=== PATIENT | female | born 1935 | race Caucasian/White ===

== ENCOUNTER 2016-05-14 14:34 | Inpatient (IN) | payer MEDICARE, MEDICAID ==
[2016-05-14 14:35] VITALS: BMI 18.1
--- NOTE | 2016-05-14 15:28 | C.PDOC ---
History Of Present Illness The patient, an 80 y/o female whose PMHx includes two episodes of [place] and CHF, presents to the ED for evaluation of a generalized headache, generalized body aches and fever which was noted today. As per daughter, patient was evaluated by her PMD, Dr. Beck, and was found to have elevated levels of RBCs and decreased levels of WBCs. Patient was admitted to the hospital afterwards but daughter claims that patient was discharged without received antibiotics. Today , patient had a fever of 101 (oral temp) which prompted ED visit for further evaluation. Patient reports shortness of breath but denies cough, nausea, vomiting. Time Seen by Provider: 05/14/16 14:52 Chief Complaint (Nursing): Headache History Per: Patient, Family (daughter ) History/Exam Limitations: no limitations Current Symptoms Are (Timing): Still Present Quality: "Pain" Associated Symptoms: denies: Nausea, Vomiting Additional History Per: Patient Past Medical History Reviewed: Historical Data, Nursing Documentation, Vital Signs Vital Signs: Last Vital Signs Temp 97.4 F L 05/14/16 14:46 Pulse 67 05/14/16 14:46 Resp 18 05/14/16 14:46 BP 95/57 L 05/14/16 14:46 Pulse Ox 99 05/14/16 15:49 - Medical History PMH: Anxiety, Arthritis (L KNEE FUSION), Asthma, Atrial Fibrillation, CHF, COPD , Dementia, Diabetes, Gall Bladder Disease, HTN, Osteoporosis, Pneumonia (2015), Rheumatoid Arthritis Denies: Alzheimer's Disease, Anemia, Bipolar Disorder, Bronchitis, Cardia Arrhythmia, Crohn's Disease, Depression, Diverticulitis, Emphysema, Fractures, Gastritis, HIV, Hypercholesterolemia, Hyperthyroidism, Hypothyroidism, Kidney Stones, Migraine, Mitral Valve Prolapse, Multiple Sclerosis, Pancreatitis, Paranoia, Parkinson's Disease, Peripheral Edema, Post Traumatic Stress Disorder , Pulmonary Embolism, Chronic Kidney Disease, Schizophrenia, Seizures, Sickle Cell Disease, Sexually Transmitted Disease, Sleep Apnea, TIA Surgical History: Cholecystectomy, Coronary Stent (proximal RCA stent, 2 weeks ago) Denies: Appendectomy, CABG, Carotid Endarterectomy, Pacemaker, Tonsillectomy - [facility] Procedures ASSISTANCE WITH RESPIRATORY VENTILATION, <24 HRS, CPAP (01/17/16) ASSISTANCE WITH RESPIRATORY VENTILATION, >96 HRS, CPAP (02/28/16) CONTINUOUS INVASIVE MECHANICAL VENTILATION <96 CONSEC HRS (08/07/12) DILATION OF 1 COR ART WITH DRUG-ELUT INTRA, PERC APPROACH (12/29/15) INJECT/INFUSE NEC (02/11/14) LAPAROSCOPIC CHOLECYSTECTOMY (08/07/12) NEBULIZER THERAPY (09/10/13) OXYGEN ENRICHMENT NEC (08/07/12) VITAL CAPACITY DETERMIN (08/07/12) Family History: States: Unknown Family Hx - Social History Hx Tobacco Use: No Hx Alcohol Use: No Hx Substance Use: No - Immunization History Hx Tetanus Toxoid Vaccination: No Hx Influenza Vaccination: No Hx Pneumococcal Vaccination: No Review Of Systems Constitutional: Positive for: Fever Respiratory: Positive for: Shortness of Breath. Negative for: Cough Gastrointestinal: Negative for: Nausea, Vomiting Musculoskeletal: Positive for: Other (generalized body pain ) Physical Exam - Physical Exam Appears: Non-toxic, No Acute Distress Skin: Normal Color, Warm, Dry Head: Atraumatic, Normacephalic Eye(s): bilateral: Normal Inspection, EOMI Oral Mucosa: Moist Neck: Supple Chest: Symmetrical, No Deformity, No Tenderness Cardiovascular: Rhythm Regular, No Murmur Respiratory: Normal Breath Sounds, No Rales, No Rhonchi, No Wheezing Gastrointestinal/Abdominal: Tenderness (slight, diffuse ), Distention (slight), No Guarding, No Rebound Back: Normal Inspection, No Vertebral Tenderness, No Paraspinal Tenderness Extremity: Normal ROM, No Tenderness, Capillary Refill (less than 2 seconds), Deformity (+left knee with surgical scars ), No Swelling Pulses: Left Dorsalis Pedis: Normal, Right Dorsalis Pedis: Normal Neurological/Psych: Oriented x3, Normal Speech, Normal Cognition Gait: Unable To Assess ED Course And Treatment O2 Sat by Pulse Oximetry: 99 (on RA) Pulse Ox Interpretation: Normal Medical Decision Making Medical Decision Making: Impression: 80 y/o female with generalized body aches, headaches, fever Plan: * labs * EKG * CXR * reassess and disposition Progress Notes: spoke with Dr. Beck, patient failing at home, decrease PO, decreased ambulation, may need placement in a custodial. Disposition Discussed With : Gisselle Beck Doctor Will See Patient In The: Hospital - Disposition Disposition: HOSPITALIZED Disposition Time: 15:37 Condition: GUARDED - Clinical Impression Clinical Impression: Head ache, Shortness of breath, Chronic pain, Anxiety, Failure to thrive - Scribe Statement The provider has reviewed the documentation as recorded by the Scribe (Lakeshia Loza) Provider Attestation: All medical record entries made by the Scribe were at my direction and personally dictated by me. I have reviewed the chart and agree that the record accurately reflects my personal performance of the history, physical exam, medical decision making, and the department course for this patient. I have also personally directed, reviewed, and agree with the discharge instructions and disposition. Decision To Admit - Pt Status Changed To: Hospital Disposition Of: Inpatient - Admit Certification Admit to Inpatient:: After my assessment, the patient will require hospitalization for at least two midnights. This is because of the severity of symptoms shown, intensity of services needed, and/or the medical risk in this patient being treated as an outpatient. - InPatient: Physician Admission Certification: I certify that this patient requires 2 or more midnights of care for the following reason:: patient unable to ambulate, decreased PO, chronic pain, may need placement - . Bed Request Type: Regular Patient Diagnosis: Head ache, Shortness of breath, Chronic pain, Anxiety, Failure to thrive
[2016-05-14 16:22] LABS: BASO # 0.1 K/uL (0.0-0.2); BASO % 1.4 % (0.0-2.0); EOS # 0.1 K/uL (0.0-0.7); EOS % 1.4 % (0.0-4.0); HEMATOCRIT 30.7 % (34.0-47.0); LYMPH # 1.9 K/uL (1.0-4.3); LYMPH % 21.4 % (20.0-40.0); MEAN CELL VOLUME 74.6 fL (81.0-99.0); MEAN CORPUSCULAR HEMOGLOBIN 24.8 pg (27.0-31.0); MEAN CORPUSCULAR HGB CONC 33.3 g/dL (33.0-37.0); MEAN PLATELET VOLUME 9.7 fL (7.2-11.7); MONO % 11.2 % (0.0-10.0); NRBC % 0.1 % (0.0-2.0); RED CELL DISTRIBUTION WIDTH 16.2 % (11.5-14.5); WHITE BLOOD COUNT 8.9 K/uL (4.8-10.8)
--- NOTE | 2016-05-14 16:24 | RAD ---
PROCEDURE: CHEST RADIOGRAPH, 1 VIEW HISTORY: SOB COMPARISON: Comparison made with chest radiograph 05/09/2016 FINDINGS: LUNGS: Mild pulmonary vascular congestive changes slightly improved from prior exam. PLEURA: No pneumothorax or pleural fluid seen. CARDIOVASCULAR: Cardiomegaly. OSSEOUS STRUCTURES: No significant abnormalities. VISUALIZED UPPER ABDOMEN: Normal. OTHER FINDINGS: None. IMPRESSION: Mild central pulmonary vascular congestion slightly improved from prior study. .
[2016-05-14 16:27] LABS: RBC URINE 2 /hpf (0-3); URINE BILIRUBIN NEGATIVE (NEGATIVE); URINE BLOOD NEGATIVE (NEGATIVE); URINE COLOR Yellow (YELLOW); URINE GLUCOSE (UA) NORMAL (Normal); URINE KETONE NEGATIVE (NEGATIVE); URINE LEUKOCYTE ESTERASE NEG Leu/uL (Negative); URINE PROTEIN NEGATIVE (NEGATIVE); URINE UROBILINOGEN NORMAL mg/dL (0.2-1.0); WBC URINE 1 /hpf (0-5)
[2016-05-14 16:30] LABS: CHLORIDE 96 mmol/L (98-107); SODIUM 140 mmol/L (132-148)
[2016-05-14 16:32] LABS: GFR AFRICAN-AMERICAN > 60
[2016-05-14 16:33] LABS: ALB/GLOB RATIO 1.2 (1.0-2.1); ALKALINE PHOSPHATASE 57 U/L (38-126); ALT/SGPT 22 U/L (9-52); AST/SGOT 21 U/L (14-36); BILIRUBIN,TOTAL 0.8 mg/dL (0.2-1.3); BLOOD UREA NITROGEN 30 mg/dL (7-17); CALCIUM 8.9 mg/dl (8.6-10.4); CARBON DIOXIDE 28 mmol/L (22-30); GLUCOSE,RANDOM 92 mg/dL (65-105); TOTAL PROTEIN 8.2 g/dL (6.3-8.3)
[2016-05-14] MEDS: Oxycodone/Acetaminophen 5/325 mg Tab PO PRN (20:49)
[2016-05-15] MEDS: Oxycodone/Acetaminophen 5/325 mg Tab PO PRN ×2 (09:25→16:14)
[2016-05-15] MEDS: Ranolazine 500 mg Extended Release Tablets PO SCH ×2 (09:28→17:14)
[2016-05-15] MEDS: Pantoprazole 40 mg EC Tab PO SCH (09:29)
--- NOTE | 2016-05-15 17:31 | CP.PCM.CON ---
History of Present Illness - History of Present Illness History of Present Illness: Reason for Consulation Dyspnea, weakness, Hx of CAD-NC/Stent, Ischemic Cardiomyopathy History Of Present Illness The patient, an 80 y/o female whose PMHx includes two episodes of [place] and CHF, presents to the ED for evaluation of a generalized headache, generalized body aches and fever which was noted today. As per daughter, patient was evaluated by her PMD, Dr. Beck, and was found to have elevated levels of RBCs and decreased levels of WBCs. Patient was admitted to the hospital afterwards but daughter claims that patient was discharged without received antibiotics. Today , patient had a fever of 101 (oral temp) which prompted ED visit for further evaluation. Patient reports shortness of breath but denies cough, nausea, vomiting. Patient poor Historian. Most of the history obtained from the chart Chief Complaint (Nursing): Headache History Per: Patient, Family (daughter ) History/Exam Limitations: no limitations Current Symptoms Are (Timing): Still Present Quality: "Pain" Associated Symptoms: denies: Nausea, Vomiting Additional History Per: Patient Past Medical History Reviewed: Historical Data, Nursing Documentation, Vital Signs Vital Signs: Last Vital Signs Temp 97.4 F L 05/14/16 14:46 Pulse 67 05/14/16 14:46 Resp 18 05/14/16 14:46 BP 95/57 L 05/14/16 14:46 Pulse Ox 99 05/14/16 15:49 - Medical History PMH: Anxiety, Arthritis (L KNEE FUSION), Asthma, Atrial Fibrillation, CHF, COPD , Dementia, Diabetes, Gall Bladder Disease, HTN, Osteoporosis, Pneumonia (2015), Rheumatoid Arthritis Denies: Alzheimer's Disease, Anemia, Bipolar Disorder, Bronchitis, Cardia Arrhythmia, Crohn's Disease, Depression, Diverticulitis, Emphysema, Fractures, Gastritis, HIV, Hypercholesterolemia, Hyperthyroidism, Hypothyroidism, Kidney Stones, Migraine, Mitral Valve Prolapse, Multiple Sclerosis, Pancreatitis, Paranoia, Parkinson's Disease, Peripheral Edema, Post Traumatic Stress Disorder , Pulmonary Embolism, Chronic Kidney Disease, Schizophrenia, Seizures, Sickle Cell Disease, Sexually Transmitted Disease, Sleep Apnea, TIA Surgical History: Cholecystectomy, Coronary Stent (proximal RCA stent 12/2015) Denies: Appendectomy, CABG, Carotid Endarterectomy, Pacemaker, Tonsillectomy - [facility] Procedures ASSISTANCE WITH RESPIRATORY VENTILATION, <24 HRS, CPAP (01/17/16) ASSISTANCE WITH RESPIRATORY VENTILATION, >96 HRS, CPAP (02/28/16) CONTINUOUS INVASIVE MECHANICAL VENTILATION <96 CONSEC HRS (08/07/12) DILATION OF 1 COR ART WITH DRUG-ELUT INTRA, PERC APPROACH (12/29/15) INJECT/INFUSE NEC (02/11/14) LAPAROSCOPIC CHOLECYSTECTOMY (08/07/12) NEBULIZER THERAPY (09/10/13) OXYGEN ENRICHMENT NEC (08/07/12) VITAL CAPACITY DETERMIN (08/07/12) Family History: States: Unknown Family Hx - Social History Hx Tobacco Use: No Hx Alcohol Use: No Hx Substance Use: No - Immunization History Hx Tetanus Toxoid Vaccination: No Hx Influenza Vaccination: No Hx Pneumococcal Vaccination: No Review Of Systems Constitutional: Positive for: Fever Respiratory: Positive for: Shortness of Breath. Negative for: Cough Gastrointestinal: Negative for: Nausea, Vomiting Musculoskeletal: Positive for: Other (generalized body pain ) Physical Exam - Physical Exam Appears: Non-toxic, No Acute Distress Skin: Normal Color, Warm, Dry Head: Atraumatic, Normacephalic Eye(s): bilateral: Normal Inspection, EOMI Oral Mucosa: Moist Neck: Supple Chest: Symmetrical, No Deformity, No Tenderness Cardiovascular: Rhythm Regular, No Murmur Respiratory: Normal Breath Sounds, No Rales, No Rhonchi, No Wheezing Gastrointestinal/Abdominal: Tenderness (slight, diffuse ), Distention (slight), No Guarding, No Rebound Back: Normal Inspection, No Vertebral Tenderness, No Paraspinal Tenderness Extremity: Normal ROM, No Tenderness, Capillary Refill (less than 2 seconds), Deformity (+left knee with surgical scars ), No Swelling Pulses: Left Dorsalis Pedis: Normal, Right Dorsalis Pedis: Normal Neurological/Psych: Oriented x3, Normal Speech, Normal Cognition Gait: Unable To Assess Past Patient History - Infectious Disease Hx of Infectious Diseases: None - Tetanus Immunizations Tetanus Immunization: Unknown - Past Medical History & Family History Past Medical History?: Yes - Past Social History Smoking Status: Light Smoker < 10 Cigarettes Daily - CARDIAC Hx Atrial Fibrillation: Yes Hx Cardia Arrhythmia: No Hx Congestive Heart Failure: Yes Hx Heart Attack: Yes (x2) Hx Hypercholesterolemia: No Hx Hypertension: Yes Hx Mitral Valve Prolapse: No Hx Pacemaker: No Hx Peripheral Edema: No - PULMONARY Hx Asthma: Yes Hx Bronchitis: No Hx Chronic Obstructive Pulmonary Disease (COPD): Yes Hx Emphysema: No Hx Pneumonia: Yes (08/2015) Hx Pulmonary Embolism: No Hx Sleep Apnea: No - NEUROLOGICAL Hx Alzheimer's Disease: No Hx Dementia: Yes Hx Migraine: No Hx Multiple Sclerosis: No Hx Parkinson's Disease: No Hx Seizures: No Hx Transient Ischemic Attacks (TIA): No - HEENT Hx HEENT Problems: No - RENAL Hx Chronic Kidney Disease: No Hx Kidney Stones: No - ENDOCRINE/METABOLIC Hx Hyperthyroidism: No Hx Hypothyroidism: No - HEMATOLOGICAL/ONCOLOGICAL Hx Anemia: No Hx Human Immunodeficiency Virus (HIV): No Hx Sickle Cell Disease: No - INTEGUMENTARY Hx Dermatological Problems: No - MUSCULOSKELETAL/RHEUMATOLOGICAL Hx Arthritis: Yes (L KNEE FUSION) Hx Falls: Yes (8 months ago) Hx Fractures: No Hx Osteoporosis: Yes Hx Rheumatoid Arthritis: Yes - GASTROINTESTINAL Hx Crohn's Disease: No Hx Diverticulitis: No Hx Gall Bladder Disease: Yes Hx Gastritis: No Hx Pancreatitis: No - GENITOURINARY/GYNECOLOGICAL Hx Sexually Transmitted Disorders: No - PSYCHIATRIC Hx Anxiety: Yes Hx Bipolar Disorder: No Hx Depression: No Hx Paranoia: No Hx Post Traumatic Stress Disorder: No Hx Schizophrenia: No Hx Substance Use: No - SURGICAL HISTORY Hx Appendectomy: No Hx Carotid Endarterectomy: No Hx Cholecystectomy: Yes Hx Coronary Artery Bypass Graft: No Hx Coronary Stent: Yes (proximal RCA stent, 2 weeks ago) Hx Tonsillectomy: No - ANESTHESIA Hx Anesthesia: Yes Hx Anesthesia Reactions: No Hx Malignant Hyperthermia: No Meds Allergies/Adverse Reactions: Allergies Allergy/AdvReac Type Severity Reaction Status Date / Time moxifloxacin HCl Allergy Severe ANAPHYLAXIS Verified 05/14/16 14:51 [From Avelox] - Medications Medications: Current Medications Alprazolam (Xanax) 1 mg PO Q12 [facility] Last Admin: 05/15/16 10:00 Dose: Not Given Aspirin (Ecotrin) 81 mg PO DAILY [facility] Last Admin: 05/15/16 09:29 Dose: 81 mg Carvedilol (Coreg) 6.25 mg PO BID [facility] Last Admin: 05/15/16 17:14 Dose: 6.25 mg Escitalopram Oxalate (Lexapro) 5 mg PO DAILY [facility] Last Admin: 05/15/16 09:28 Dose: 5 mg Furosemide (Lasix) 20 mg PO DAILY [facility] Last Admin: 05/15/16 09:28 Dose: 20 mg Influenza Virus Vaccine (Afluria) 45 mcg IM .ONCE ONE Stop: 05/16/16 10:01 Losartan Potassium (Cozaar) 25 mg PO DAILY [facility] Last Admin: 05/15/16 09:29 Dose: 25 mg Megestrol Acetate (Megace) 40 mg PO DAILY [facility] Last Admin: 05/15/16 09:29 Dose: 40 mg Montelukast Sodium (Singulair) 10 mg PO HS [facility] Last Admin: 05/14/16 22:45 Dose: 10 mg Oxycodone/Acetaminophen (Percocet 5/325 Mg Tab) 1 tab PO Q4H PRN PRN Reason: Pain, moderate (4-7) Stop: 05/17/16 20:17 Last Admin: 05/15/16 16:14 Dose: 1 tab Pantoprazole Sodium (Protonix Ec Tab) 40 mg PO DAILY [facility] Last Admin: 05/15/16 09:29 Dose: 40 mg Ranolazine (Ranexa) 500 mg PO BID [facility] Last Admin: 05/15/16 17:14 Dose: 500 mg Rosuvastatin Calcium (Crestor) 10 mg PO [facility] Last Admin: 05/14/16 22:44 Dose: 10 mg Ticagrelor (Brilinta) 90 mg PO BID [facility] Last Admin: 05/15/16 17:14 Dose: 90 mg Results - Vital Signs Recent Vital Signs: Last Vital Signs Temp 97.8 F 05/15/16 15:30 Pulse 69 05/15/16 15:30 Resp 20 05/15/16 15:30 BP 128/87 05/15/16 15:30 Pulse Ox 98 05/15/16 15:30 - Labs Result Diagrams: 05/14/16 16:19 05/14/16 16:19 Assessment & Plan - Assessment and Plan (Free Text) Assessment: 80 F with hx of Ischemic CMP, CAD-NC s/p RCA stent presents for headache, abdominal pain and dyspnea 1. Acute on Chronic systolic CHF (Elevated Pro BNP). Will Check repeat ECHO. Continue ARBs, B blockers Good candidate for Entresto. Lasix PRN If repeat ECHO shows low EF (<35%) will benefit from ICD 2. CAD s/p RCA stent. Still has significant LAD disease (90%) calcific. Likely benefit from PCI, if patient symptomatic either dyspnea or chest pain Continue ASA. Due to dyspnea will switch Brilinta to Plavix Obviously I will discuss my thoughts with the daughter and PMD 3. Other mgt as per Dr. Beck
[2016-05-15] MEDS: Enoxaparin 30 mg Syringe SC SCH (17:54)
--- NOTE | 2016-05-15 22:18 | CARD ---
APPROVED REPORT EKG Measurement Heart [id number] <Conclusion> Sinus rhythm with marked sinus arrhythmia with premature atrial and ventricular complexes or fusion complexes Left axis deviation Moderate voltage criteria for LVH, may be normal variant Cannot rule out Septal infarct, age undetermined Possible Lateral infarct, age undetermined Inferior infarct, age undetermined Abnormal ECG
--- NOTE | 2016-05-16 07:53 | HP ---
An 80-year-old female admitted to the hospital with chief complaint of weakness, fatigue, tiredness, shortness of breath. The patient came to the ER, advised admission. PAST MEDICAL HISTORY: Congestive heart failure, coronary artery disease, status post MO, anxiety, ba ck pain. PHYSICAL EXAMINATION: GENERAL: The patient is awake, alert, oriented. VITAL SIGNS: Temperature 98, pulse is 90. HEENT: Within normal limits. NECK: Supple. CHEST: Symmetrical. HEART: Regular. ABDOMEN: Soft. EXTREMITIES: No edema. The patient suffers from failure to thrive, chronic heart failure. The patient will get bedrest, sup portive care. Continue treatment and cardiology evaluation, social service evaluation. Gisselle Vogel MD cc: [id number] TT: 05/15/2016 12:09:52 en
[2016-05-16] MEDS ORDERED: Influenza Virus Vaccine 45 mcg/0.5 ml Syr IM ONE (10:00)
[2016-05-16] MEDS ORDERED: Pneumococcal 23-Valent Vaccine IM ONE (10:00)
--- NOTE | 2016-05-16 10:11 | CP.PCM.PN ---
Subjective - Date & Time of Evaluation Date of Evaluation: 05/16/16 Time of Evaluation: 07:50 - Subjective Subjective: PGY2 Medicine Note - Dr. Beck's service: Patient seen and evaluated at bedside this AM. Patient says she feel dizzy. Patient denies chest pain, SOB, nausea, vomiting, diarrhea, constipation. Objective - Vital Signs/Intake and Output Vital Signs (last 24 hours): Temp Pulse Resp BP Pulse Ox 97.8 F 64 20 121/73 100 05/16/16 08:00 05/16/16 08:00 05/16/16 08:00 05/16/16 08:00 05/16/16 08:00 Intake and Output: 05/16/16 05/16/16 06:59 18:59 Intake Total 520 Balance 520 - Medications Medications: Current Medications Alprazolam (Xanax) 1 mg PO Q12 [facility] Last Admin: 05/15/16 21:30 Dose: 1 mg Aspirin (Ecotrin) 81 mg PO DAILY [facility] Last Admin: 05/15/16 09:29 Dose: 81 mg Carvedilol (Coreg) 6.25 mg PO BID [facility] Last Admin: 05/15/16 17:14 Dose: 6.25 mg Enoxaparin Sodium (Lovenox) 30 mg SC DAILY [facility] Last Admin: 05/15/16 17:54 Dose: 30 mg Escitalopram Oxalate (Lexapro) 5 mg PO DAILY [facility] Last Admin: 05/15/16 09:28 Dose: 5 mg Furosemide (Lasix) 20 mg PO DAILY [facility] Last Admin: 05/15/16 09:28 Dose: 20 mg Lactulose (Enulose) 20 gm PO DAILY [facility] Last Admin: 05/15/16 17:54 Dose: 20 gm Losartan Potassium (Cozaar) 25 mg PO DAILY [facility] Last Admin: 05/15/16 09:29 Dose: 25 mg Megestrol Acetate (Megace) 40 mg PO DAILY [facility] Last Admin: 05/15/16 09:29 Dose: 40 mg Montelukast Sodium (Singulair) 10 mg PO HS [facility] Last Admin: 05/15/16 21:29 Dose: 10 mg Oxycodone/Acetaminophen (Percocet 5/325 Mg Tab) 1 tab PO Q4H PRN PRN Reason: Pain, moderate (4-7) Stop: 03/21/17 20:17 Last Admin: 05/15/16 16:14 Dose: 1 tab Pantoprazole Sodium (Protonix Ec Tab) 40 mg PO DAILY [facility] Last Admin: 05/15/16 09:29 Dose: 40 mg Ranolazine (Ranexa) 500 mg PO BID [facility] Last Admin: 05/15/16 17:14 Dose: 500 mg Rosuvastatin Calcium (Crestor) 10 mg PO HS [facility] Last Admin: 05/15/16 21:27 Dose: 10 mg Ticagrelor (Brilinta) 90 mg PO BID [facility] Last Admin: 05/15/16 17:14 Dose: 90 mg - Labs Labs: 05/14/16 16:19 05/14/16 16:19 - Constitutional Appears: Non-toxic, No Acute Distress - Head Exam Head Exam: NORMAL INSPECTION - Eye Exam Eye Exam: EOMI - ENT Exam ENT Exam: Mucous Membranes Moist - Respiratory Exam Respiratory Exam: Clear to Ausculation Bilateral, Rales (bibasilar), NORMAL BREATHING PATTERN. absent: Rhonchi, Wheezes - Cardiovascular Exam Cardiovascular Exam: REGULAR RHYTHM, +S1, +S2. absent: Gallop, Rubs, Murmur - GI/Abdominal Exam GI & Abdominal Exam: Soft, Normal Bowel Sounds. absent: Distended, Firm ( deformed left knee), Tenderness - Extremities Exam Extremities Exam: Normal Capillary Refill - Neurological Exam Neurological Exam: Alert, Awake - Psychiatric Exam Psychiatric exam: Normal Affect, Normal Mood - Skin Skin Exam: Dry, Normal Color Assessment and Plan - Assessment and Plan (Free Text) Assessment: 1. CHF BNP 2200 CXR - mild central pulmonary vascular congestion slightly improved from prior study F/U ECHO Dr. Kelley - cardio consult - help appreciated ASA 81mg PO daily Coreg 6.25mg PO BID Lasix 20mg PO daily Cozaar 25mg PO daily 2. Abnormal EKG EKG - sinus rhythm at 71bpm with marked sinus arrhythmia with premature atrial and ventricular complexes. LAD. LVH. cannot rule out septal infarct, age undetermined. Possible lateral infarct, age undetermined. Inferior infarct, age undetermined. 3. Failure to thrive NS @ 50cc/hr Trying to contact family about fci. Case Management referral 4. Fever at home before admission Afebrile through entire hospital stay 5. History of CAD ASA 81mg PO daily Crestor 10mg PO HS Brilinta 90mg PO BID 6. Anxiety Xanax 1mg PO Q12H [facility] Lexapro 5mg PO daily 7. Prophylaxis Lovenox 30mg SC daily Protonix 40mg PO daily PT says patient is unable to participate in rehab
[2016-05-16] MEDS: Enoxaparin 30 mg Syringe SC SCH (10:55)
[2016-05-16] MEDS: Sodium Chloride 0.9% 1,000 ML IV SCH (10:55)
[2016-05-16] MEDS: Pantoprazole 40 mg EC Tab PO SCH (10:56)
[2016-05-16] MEDS: Ranolazine 500 mg Extended Release Tablets PO SCH ×2 (10:58→17:29)
[2016-05-16 11:49] LABS: BASO # 0.1 K/uL (0.0-0.2); EOS # 0.2 K/uL (0.0-0.7); HEMATOCRIT 30.5 % (34.0-47.0); LYMPH # 2.5 K/uL (1.0-4.3); LYMPH % 26.5 % (20.0-40.0); MEAN CELL VOLUME 74.9 fL (81.0-99.0); MEAN CORPUSCULAR HEMOGLOBIN 24.1 pg (27.0-31.0); MEAN CORPUSCULAR HGB CONC 32.2 g/dL (33.0-37.0); MONO # 1.2 K/uL (0.0-0.8); MONO % 12.3 % (0.0-10.0); RED CELL DISTRIBUTION WIDTH 15.9 % (11.5-14.5); WHITE BLOOD COUNT 9.5 K/uL (4.8-10.8)
[2016-05-16 12:18] LABS: CHLORIDE 94 mmol/L (98-107); POTASSIUM 4.2 mmol/L (3.6-5.2); SODIUM 138 mmol/L (132-148)
[2016-05-16 12:20] LABS: GFR AFRICAN-AMERICAN > 60
[2016-05-16 12:21] LABS: ALB/GLOB RATIO 1.3 (1.0-2.1); ALKALINE PHOSPHATASE 55 U/L (38-126); ALT/SGPT 10 U/L (9-52); AST/SGOT 18 U/L (14-36); BILIRUBIN,TOTAL 0.7 mg/dL (0.2-1.3); BLOOD UREA NITROGEN 25 mg/dL (7-17); CARBON DIOXIDE 27 mmol/L (22-30); GLUCOSE,RANDOM 73 mg/dL (65-105); TOTAL PROTEIN 7.5 g/dL (6.3-8.3)
[2016-05-16 12:22] LABS: CALCIUM 8.7 mg/dl (8.6-10.4)
[2016-05-16] MEDS: Oxycodone/Acetaminophen 5/325 mg Tab PO PRN (17:36)
--- NOTE | 2016-05-16 22:24 | CP.PCM.PN ---
Subjective - Date & Time of Evaluation Date of Evaluation: 05/16/16 Time of Evaluation: 14:00 - Subjective Subjective: Patient seen and evaluated Denies chest pain and dyspnea ECHO reviewed: EF 55%, Severe MR (Can consider Uyen Clip in the future, if recurrent CHF episodes despite max medical therapy), Moderate to severe TR, Moderate pulmonary HTN Dyspnea secondary to MR and diastolic CHF Hx of CAD s/p RCA stent. LAD not intervened yet Awaiting to d/w family invasive vs. Medical therapy Continue medical mgt for now for CHF and MR Objective - Vital Signs/Intake and Output Vital Signs (last 24 hours): Temp Pulse Resp BP Pulse Ox 97.8 F 64 19 91/52 L 98 05/16/16 15:00 05/16/16 15:00 05/16/16 15:00 05/16/16 15:00 05/16/16 15:00 Intake and Output: 05/16/16 05/17/16 18:59 06:59 Intake Total 300 Balance 300 - Medications Medications: Current Medications Alprazolam (Xanax) 1 mg PO Q12 [facility] Last Admin: 05/16/16 21:52 Dose: 1 mg Aspirin (Ecotrin) 81 mg PO DAILY [facility] Last Admin: 05/16/16 10:56 Dose: 81 mg Carvedilol (Coreg) 6.25 mg PO BID [facility] Last Admin: 05/16/16 17:25 Dose: 6.25 mg Enoxaparin Sodium (Lovenox) 30 mg SC DAILY [facility] Last Admin: 05/16/16 10:55 Dose: 30 mg Escitalopram Oxalate (Lexapro) 5 mg PO DAILY [facility] Last Admin: 05/16/16 10:58 Dose: 5 mg Furosemide (Lasix) 20 mg PO DAILY [facility] Last Admin: 05/16/16 10:55 Dose: 20 mg Sodium Chloride (Sodium Chloride 0.9%) 1,000 mls @ 50 mls/hr IV .Q20H [facility] Last Admin: 05/16/16 10:55 Dose: 50 mls/hr Lactulose (Enulose) 20 gm PO DAILY [facility] Last Admin: 05/16/16 10:56 Dose: 20 gm Losartan Potassium (Cozaar) 25 mg PO DAILY [facility] Last Admin: 05/16/16 10:56 Dose: 25 mg Megestrol Acetate (Megace) 40 mg PO DAILY [facility] Last Admin: 05/16/16 10:58 Dose: 40 mg Montelukast Sodium (Singulair) 10 mg PO HS [facility] Last Admin: 05/16/16 21:41 Dose: 10 mg Oxycodone/Acetaminophen (Percocet 5/325 Mg Tab) 1 tab PO Q4H PRN PRN Reason: Pain, moderate (4-7) Stop: 05/17/16 20:17 Last Admin: 05/16/16 17:36 Dose: 1 tab Pantoprazole Sodium (Protonix Ec Tab) 40 mg PO DAILY [facility] Last Admin: 05/16/16 10:56 Dose: 40 mg Ranolazine (Ranexa) 500 mg PO BID [facility] Last Admin: 05/16/16 17:29 Dose: 500 mg Rosuvastatin Calcium (Crestor) 10 mg PO HS [facility] Last Admin: 05/16/16 21:41 Dose: 10 mg Ticagrelor (Brilinta) 90 mg PO BID [facility] Last Admin: 05/16/16 17:30 Dose: 90 mg - Labs Labs: 05/16/16 11:31 05/16/16 11:31
[2016-05-17 00:14] VITALS: RESP 20
[2016-05-17 08:11] LABS: BASO # 0.1 K/uL (0.0-0.2); BASO % 0.7 % (0.0-2.0); EOS # 0.2 K/uL (0.0-0.7); EOS % 1.4 % (0.0-4.0); LYMPH # 2.3 K/uL (1.0-4.3); LYMPH % 21.2 % (20.0-40.0); MEAN CELL VOLUME 75.2 fL (81.0-99.0); MEAN CORPUSCULAR HEMOGLOBIN 24.1 pg (27.0-31.0); MEAN CORPUSCULAR HGB CONC 32.1 g/dL (33.0-37.0); MONO # 1.1 K/uL (0.0-0.8); MONO % 9.8 % (0.0-10.0); NRBC % 0.1 % (0.0-2.0); RED CELL DISTRIBUTION WIDTH 15.9 % (11.5-14.5)
[2016-05-17 08:32] LABS: CHLORIDE 96 mmol/L (98-107); POTASSIUM 4.4 mmol/L (3.6-5.2); SODIUM 137 mmol/L (132-148)
[2016-05-17 08:34] LABS: BILIRUBIN,TOTAL 0.8 mg/dL (0.2-1.3); GFR AFRICAN-AMERICAN > 60
[2016-05-17 08:35] LABS: ALB/GLOB RATIO 1.2 (1.0-2.1); ALKALINE PHOSPHATASE 54 U/L (38-126); ALT/SGPT 12 U/L (9-52); AST/SGOT 18 U/L (14-36); BLOOD UREA NITROGEN 28 mg/dL (7-17); CALCIUM 8.8 mg/dl (8.6-10.4); CARBON DIOXIDE 27 mmol/L (22-30); GLUCOSE,RANDOM 115 mg/dL (65-105); TOTAL PROTEIN 7.4 g/dL (6.3-8.3)
--- NOTE | 2016-05-17 09:32 | CP.PCM.PN ---
Subjective - Date & Time of Evaluation Date of Evaluation: 05/17/16 Time of Evaluation: 07:00 - Subjective Subjective: PGY2 Medicine Note - Dr. Beck's service: Patient seen and evaluated at bedside this AM. Patient more awake and alert today. Patient denies chest pain, SOB, nausea, vomiting, diarrhea, constipation. Objective - Vital Signs/Intake and Output Vital Signs (last 24 hours): Temp Pulse Resp BP Pulse Ox 97.5 F L 64 20 111/66 97 05/17/16 07:10 05/17/16 07:10 05/17/16 07:10 05/17/16 07:10 05/17/16 07:10 Intake and Output: 05/17/16 05/17/16 06:59 18:59 Intake Total 600 500 Balance 600 500 - Medications Medications: Current Medications Alprazolam (Xanax) 1 mg PO Q12 [facility] Last Admin: 05/16/16 21:52 Dose: 1 mg Aspirin (Ecotrin) 81 mg PO DAILY [facility] Last Admin: 05/16/16 10:56 Dose: 81 mg Carvedilol (Coreg) 6.25 mg PO BID [facility] Last Admin: 05/16/16 17:25 Dose: 6.25 mg Enoxaparin Sodium (Lovenox) 30 mg SC DAILY [facility] Last Admin: 05/16/16 10:55 Dose: 30 mg Escitalopram Oxalate (Lexapro) 5 mg PO DAILY [facility] Last Admin: 05/16/16 10:58 Dose: 5 mg Furosemide (Lasix) 20 mg PO DAILY [facility] Last Admin: 05/16/16 10:55 Dose: 20 mg Sodium Chloride (Sodium Chloride 0.9%) 1,000 mls @ 50 mls/hr IV .Q20H [facility] Last Admin: 05/16/16 10:55 Dose: 50 mls/hr Lactulose (Enulose) 20 gm PO DAILY [facility] Last Admin: 05/16/16 10:56 Dose: 20 gm Losartan Potassium (Cozaar) 25 mg PO DAILY [facility] Last Admin: 05/16/16 10:56 Dose: 25 mg Megestrol Acetate (Megace) 40 mg PO DAILY [facility] Last Admin: 05/16/16 10:58 Dose: 40 mg Montelukast Sodium (Singulair) 10 mg PO HS [facility] Last Admin: 05/16/16 21:41 Dose: 10 mg Oxycodone/Acetaminophen (Percocet 5/325 Mg Tab) 1 tab PO Q4H PRN PRN Reason: Pain, moderate (4-7) Stop: 05/17/16 20:17 Last Admin: 05/16/16 17:36 Dose: 1 tab Pantoprazole Sodium (Protonix Ec Tab) 40 mg PO DAILY [facility] Last Admin: 05/16/16 10:56 Dose: 40 mg Ranolazine (Ranexa) 500 mg PO BID [facility] Last Admin: 05/16/16 17:29 Dose: 500 mg Rosuvastatin Calcium (Crestor) 10 mg PO HS [facility] Last Admin: 05/16/16 21:41 Dose: 10 mg Ticagrelor (Brilinta) 90 mg PO BID [facility] Last Admin: 05/16/16 17:30 Dose: 90 mg - Labs Labs: 05/17/16 07:58 05/17/16 07:58 - Constitutional Appears: Non-toxic, No Acute Distress, Cachectic, Chronically Ill - Head Exam Head Exam: NORMAL INSPECTION - Eye Exam Eye Exam: EOMI - ENT Exam ENT Exam: Mucous Membranes Moist - Respiratory Exam Respiratory Exam: Clear to Ausculation Bilateral, NORMAL BREATHING PATTERN. absent: Rales, Rhonchi, Wheezes - Cardiovascular Exam Cardiovascular Exam: Gallop, REGULAR RHYTHM, +S1, +S2, Murmur - GI/Abdominal Exam GI & Abdominal Exam: Soft, Normal Bowel Sounds. absent: Firm, Guarding, Tenderness - Extremities Exam Extremities Exam: Normal Capillary Refill. absent: Pedal Edema - Neurological Exam Neurological Exam: Alert, Awake - Psychiatric Exam Psychiatric exam: Normal Affect, Normal Mood - Skin Skin Exam: Dry, Normal Color Assessment and Plan - Assessment and Plan (Free Text) Assessment: 1. CHF BNP 2200 CXR - mild central pulmonary vascular congestion slightly improved from prior study ECHO - 55% EF, severe MR, moderate to severe TR, moderate pulmonary HTN Dr. Kelley - cardio consult - help appreciated ASA 81mg PO daily Coreg 6.25mg PO BID Lasix 20mg PO daily Cozaar 25mg PO daily 2. Abnormal EKG EKG - sinus rhythm at 71bpm with marked sinus arrhythmia with premature atrial and ventricular complexes. LAD. LVH. cannot rule out septal infarct, age undetermined. Possible lateral infarct, age undetermined. Inferior infarct, age undetermined. 3. Failure to thrive NS @ 50cc/hr Trying to contact family about penitentiary. Case Management referral 4. Fever at home before admission Afebrile through entire hospital stay 5. History of CAD ASA 81mg PO daily Crestor 10mg PO HS Brilinta 90mg PO BID 6. Anxiety Xanax 1mg PO Q12H [facility] Lexapro 5mg PO daily 7. Prophylaxis Lovenox 30mg SC daily Protonix 40mg PO daily PT says patient is unable to participate in physical therapy
[2016-05-17] MEDS: Enoxaparin 30 mg Syringe SC SCH (11:20)
[2016-05-17] MEDS: Ranolazine 500 mg Extended Release Tablets PO SCH ×2 (11:21→18:52)
[2016-05-17] MEDS: Pantoprazole 40 mg EC Tab PO SCH (11:21)
[2016-05-17] MEDS: Sodium Chloride 0.9% 1,000 ML IV SCH (11:28)
--- NOTE | 2016-05-17 23:38 | CP.PCM.PN ---
Subjective - Date & Time of Evaluation Date of Evaluation: 05/17/16 Time of Evaluation: 12:00 - Subjective Subjective: Patient seen and evaluated Comfortable Further cardiac mgt as out patientt Objective - Vital Signs/Intake and Output Vital Signs (last 24 hours): Temp Pulse Resp BP Pulse Ox 98.3 F 73 20 109/66 96 05/17/16 23:28 05/17/16 23:28 05/17/16 23:28 05/17/16 23:28 05/17/16 23:28 Intake and Output: 05/17/16 05/18/16 18:59 06:59 Intake Total 1200 Balance 1200 - Medications Medications: Current Medications Alprazolam (Xanax) 1 mg PO Q12 [facility] Last Admin: 05/17/16 22:00 Dose: 1 mg Aspirin (Ecotrin) 81 mg PO DAILY [facility] Last Admin: 05/17/16 11:21 Dose: 81 mg Carvedilol (Coreg) 6.25 mg PO BID [facility] Last Admin: 05/17/16 18:52 Dose: 6.25 mg Clopidogrel Bisulfate (Plavix) 75 mg PO DAILY [facility] Enoxaparin Sodium (Lovenox) 30 mg SC DAILY [facility] Last Admin: 05/17/16 11:20 Dose: 30 mg Escitalopram Oxalate (Lexapro) 5 mg PO DAILY [facility] Last Admin: 05/17/16 11:21 Dose: 5 mg Famotidine (Pepcid) 20 mg PO DAILY [facility] Furosemide (Lasix) 20 mg PO DAILY [facility] Last Admin: 05/17/16 11:20 Dose: 20 mg Sodium Chloride (Sodium Chloride 0.9%) 1,000 mls @ 50 mls/hr IV .Q20H [facility] Last Admin: 05/17/16 11:28 Dose: 50 mls/hr Lactulose (Enulose) 20 gm PO DAILY [facility] Last Admin: 05/17/16 11:20 Dose: 20 gm Loperamide HCl (Imodium) 2 mg PO Q8 PRN PRN Reason: Diarrhea Losartan Potassium (Cozaar) 25 mg PO DAILY [facility] Last Admin: 05/17/16 11:20 Dose: 25 mg Megestrol Acetate (Megace) 40 mg PO DAILY [facility] Last Admin: 05/17/16 11:22 Dose: 40 mg Montelukast Sodium (Singulair) 10 mg PO HS [facility] Last Admin: 05/17/16 22:00 Dose: 10 mg Ranolazine (Ranexa) 500 mg PO BID [facility] Last Admin: 05/17/16 18:52 Dose: 500 mg Rosuvastatin Calcium (Crestor) 10 mg PO [facility] Last Admin: 05/17/16 22:00 Dose: 10 mg - Labs Labs: 05/17/16 07:58 05/17/16 07:58
[2016-05-18] MEDS: Sodium Chloride 0.9% 1,000 ML IV SCH (02:30)
--- NOTE | 2016-05-18 08:54 | CARD ---
APPROVED REPORT EXAM: Two-dimensional and M-mode echocardiogram with Doppler and color Doppler. Other Information Quality : GoodRhythm : NSR INDICATION Dyspnea Atrial Fibrillation CAD Chest Pain Syncope Congestive Heart Failure COPD RISK FACTORS Diabetes M-Mode DIMENSIONS Left Atrium (MM)3.55 (2.5-4.0cm)IVSd0.88 (0.7-1.1cm) Aortic Root2.93 (2.2-3.7cm)LVDd5.50 (4.0-5.6cm) Aortic Cusp Exc.1.66 (1.5-2.0cm)PWd0.72 (0.7-1.1cm) FS (%) 34 %LVDs3.64 (2.0-3.8cm) LVEF (%)62 (>50%) Mitral Valve MV E Iwoeudkg771.2cm/sE/A ratio0.0 TDI E/Lateral E'0.0E/Medial E'0.0 Tricuspid Valve TR Peak [id number]/sTR Peak [id number] <Conclusion> Left ventricle: thickness:thinning and hypokinesis of the proximal interventricular septum; size: normal; overall ejection fraction:55%: diastolic filling pressures: normal Mitral valve: annulus: normal: leaflets: normal: excursion: normal; no significant trans-mitral gradient:moderate incompetence: left atrium: upper limit of normal Aortic valve: leaflets: mild calcific thickening: excursion: normal; no significant trans-aortic gradient: No significant incompetence: aortic root: normal Right sided Structures: Pulmonary valve: normal; no significant incompetence; Tricuspid valve: normal; mild incompetence: Intra-cardiac hemodynamics: pulmonary systolic pressures: 40mmhg; central venous pressures: normal No pericardial effusion
[2016-05-18] MEDS: Ranolazine 500 mg Extended Release Tablets PO SCH (09:09)
[2016-05-18] MEDS: Enoxaparin 30 mg Syringe SC SCH (09:10)
--- NOTE | 2016-05-18 09:54 | CP.PCM.PN ---
Subjective - Date & Time of Evaluation Date of Evaluation: 05/18/16 Time of Evaluation: 07:00 - Subjective Subjective: PGY2 Medicine Note - Dr. Beck's service: Patient seen and evaluated at bedside this AM. Patient upset about the "man next door." Patient's roommate is a female. Patient reports RUQ pain for a few hours worse with deep breathing. Patient denies chest pain, SOB, nausea, vomiting, diarrhea, constipation. Objective - Vital Signs/Intake and Output Vital Signs (last 24 hours): Temp Pulse Resp BP Pulse Ox 98 F 70 20 138/72 97 05/18/16 08:12 05/18/16 08:12 05/18/16 08:12 05/18/16 09:08 05/18/16 08:12 Intake and Output: 05/18/16 05/18/16 06:59 18:59 Intake Total 300 Balance 300 - Medications Medications: Current Medications Alprazolam (Xanax) 1 mg PO Q12 [facility] Last Admin: 05/18/16 09:08 Dose: 1 mg Aspirin (Ecotrin) 81 mg PO DAILY [facility] Last Admin: 05/18/16 09:08 Dose: 81 mg Carvedilol (Coreg) 6.25 mg PO BID [facility] Last Admin: 05/18/16 09:08 Dose: 6.25 mg Clopidogrel Bisulfate (Plavix) 75 mg PO DAILY [facility] Last Admin: 05/18/16 09:08 Dose: 75 mg Enoxaparin Sodium (Lovenox) 30 mg SC DAILY [facility] Last Admin: 05/18/16 09:10 Dose: 30 mg Escitalopram Oxalate (Lexapro) 5 mg PO DAILY [facility] Last Admin: 05/18/16 09:09 Dose: 5 mg Famotidine (Pepcid) 20 mg PO DAILY [facility] Last Admin: 05/18/16 09:08 Dose: 20 mg Furosemide (Lasix) 20 mg PO DAILY [facility] Last Admin: 05/18/16 09:08 Dose: 20 mg Sodium Chloride (Sodium Chloride 0.9%) 1,000 mls @ 50 mls/hr IV .Q20H [facility] Last Admin: 05/18/16 02:30 Dose: Not Given Lactulose (Enulose) 20 gm PO DAILY [facility] [place] Last Admin: 05/17/16 11:20 Dose: 20 gm Loperamide HCl (Imodium) 2 mg PO Q8 PRN PRN Reason: Diarrhea Losartan Potassium (Cozaar) 25 mg PO DAILY [facility] Last Admin: 05/18/16 09:08 Dose: 25 mg Megestrol Acetate (Megace) 40 mg PO DAILY [facility] Last Admin: 05/18/16 09:10 Dose: 40 mg Montelukast Sodium (Singulair) 10 mg PO [facility] Last Admin: 05/17/16 22:00 Dose: 10 mg Ranolazine (Ranexa) 500 mg PO BID [facility] Last Admin: 05/18/16 09:09 Dose: 500 mg Rosuvastatin Calcium (Crestor) 10 mg PO [facility] Last Admin: 05/17/16 22:00 Dose: 10 mg - Labs Labs: 05/17/16 07:58 05/17/16 07:58 - Constitutional Appears: Non-toxic, No Acute Distress - Head Exam Head Exam: NORMAL INSPECTION - Eye Exam Eye Exam: EOMI - ENT Exam ENT Exam: Mucous Membranes Moist - Respiratory Exam Respiratory Exam: Clear to Ausculation Bilateral, NORMAL BREATHING PATTERN. absent: Rales, Rhonchi, Wheezes - Cardiovascular Exam Cardiovascular Exam: REGULAR RHYTHM, +S1, +S2. absent: Gallop, Rubs, Murmur - GI/Abdominal Exam GI & Abdominal Exam: Soft, Tenderness (RUQ tenderness), Normal Bowel Sounds. absent: Firm, Guarding - Extremities Exam Extremities Exam: Normal Capillary Refill. absent: Pedal Edema - Neurological Exam Neurological Exam: Alert, Awake. absent: Oriented x3 - Psychiatric Exam Psychiatric exam: Agitated - Skin Skin Exam: Normal Color, Warm Assessment and Plan - Assessment and Plan (Free Text) Assessment: 1. CHF BNP 2200 CXR - mild central pulmonary vascular congestion slightly improved from prior study ECHO - 55% EF, severe MR, moderate to severe TR, moderate pulmonary HTN Dr. Kelley - cardio consult - help appreciated ASA 81mg PO daily Coreg 6.25mg PO BID Lasix 20mg PO daily Cozaar 25mg PO daily 2. Abnormal EKG EKG - sinus rhythm at 71bpm with marked sinus arrhythmia with premature atrial and ventricular complexes. LAD. LVH. cannot rule out septal infarct, age undetermined. Possible lateral infarct, age undetermined. Inferior infarct, age undetermined. 3. RUQ pain F/U Abdominal US LFTs within normal limits 3. Failure to thrive NS @ 50cc/hr Family agreed to skilled nursing Case Management referral 4. Fever at home before admission Afebrile through entire hospital stay 5. History of CAD ASA 81mg PO daily Crestor 10mg PO HS Brilinta 90mg PO BID 6. Anxiety Xanax 1mg PO Q12H [facility] Lexapro 5mg PO daily 7. Prophylaxis Lovenox 30mg SC daily Protonix 40mg PO daily PT says patient is unable to participate in physical therapy
[2016-05-18 11:43] LABS: BASO # 0.1 K/uL (0.0-0.2); EOS # 0.1 K/uL (0.0-0.7); EOS % 1.3 % (0.0-4.0); HEMATOCRIT 28.5 % (34.0-47.0); LYMPH # 2.4 K/uL (1.0-4.3); LYMPH % 22.3 % (20.0-40.0); MEAN CELL VOLUME 74.6 fL (81.0-99.0); MEAN CORPUSCULAR HGB CONC 32.1 g/dL (33.0-37.0); MONO # 1.1 K/uL (0.0-0.8); MONO % 10.1 % (0.0-10.0); RED CELL DISTRIBUTION WIDTH 15.8 % (11.5-14.5); WHITE BLOOD COUNT 10.9 K/uL (4.8-10.8)
[2016-05-18 11:55] LABS: CHLORIDE 101 mmol/L (98-107)
[2016-05-18 11:56] LABS: POTASSIUM 4.2 mmol/L (3.6-5.2); SODIUM 137 mmol/L (132-148)
[2016-05-18 11:58] LABS: ALB/GLOB RATIO 1.3 (1.0-2.1); ALKALINE PHOSPHATASE 52 U/L (38-126); AST/SGOT 16 U/L (14-36); BILIRUBIN,TOTAL 0.7 mg/dL (0.2-1.3); BLOOD UREA NITROGEN 16 mg/dL (7-17); CARBON DIOXIDE 22 mmol/L (22-30); GFR AFRICAN-AMERICAN > 60; GLUCOSE,RANDOM 82 mg/dL (65-105); TOTAL PROTEIN 7.2 g/dL (6.3-8.3)
[2016-05-18 11:59] LABS: ALT/SGPT 16 U/L (9-52); CALCIUM 8.4 mg/dl (8.6-10.4)
[2016-05-18] MEDS ORDERED: Pneumococcal 23-Valent Vaccine IM ONE (15:02)
--- NOTE | 2016-05-18 15:44 | PCM.HF ---
Heart Failure Core Measure - Heart Failure Ejection Fraction: 40 % or Greater (EF 55%) KANDIS Inhibitor Prescribed: No Contraindication/Reason for not providing: on arb Beta-Wesley Prescribed: Carvedilol Angiotensin II Receptor Wesley Prescribed: Yes AnticoagulationTherapy for Atrial Fibrillation/Atrialflutter: No Contraindication/Reason for not providing: no afib Aldosterone Antagonist Prescribed: No Contraindication/Reason for not providing: EF >40% Hydralazine Nitrate Prescribed: No Contraindication/Reason for not providing: BP low, EF>40% Implantable Cardioverter Defibrillator Therapy: No Contraindication/Reason for not providing: EF >40% Cardiac Resynchronization Therapy Prescribed: No Contraindication/Reason for not providing: not indicated - Follow up Will be discharged to: Home Follow Up Date (must be within 7 days from discharge): 05/23/16 Follow Up Time: 09:00
[2016-05-18 16:25] VITALS: BP 117/68; PULSE 71; TEMP 98.3; O2SAT 99
== END 2016-05-18 17:30 | disposition home health service (06) | DRG 293 ==
LOC: C.ER 14:34 → C.9E 15:38 → C.3T 17:20
PROVIDERS: ADMIT Internal Medicine Pulmonary Disease; ATTEND Internal Medicine Pulmonary Disease
DX: I11.0 Hypertensive heart disease with heart failure (principal); I27.2 Other secondary pulmonary hypertension; R06.00 Dyspnea, unspecified; F03.90 Unspecified dementia, unspecified severity, without behavioral disturbance, psychotic disturbance, mood disturbance, and anxiety; I50.23 Acute on chronic systolic (congestive) heart failure; I25.5 Ischemic cardiomyopathy; I08.1 Rheumatic disorders of both mitral and tricuspid valves; R62.7 Adult failure to thrive; J44.9 Chronic obstructive pulmonary disease, unspecified; E11.9 Type 2 diabetes mellitus without complications; R51 Headache; I25.10 Atherosclerotic heart disease of native coronary artery without angina pectoris; J45.909 Unspecified asthma, uncomplicated; F41.9 Anxiety disorder, unspecified; M17.12 Unilateral primary osteoarthritis, left knee; M06.9 Rheumatoid arthritis, unspecified; M81.0 Age-related osteoporosis without current pathological fracture; E78.5 Hyperlipidemia, unspecified; R53.1 Weakness; Z95.5 Presence of coronary angioplasty implant and graft; I25.2 Old myocardial infarction; Z98.61 Coronary angioplasty status; Z87.01 Personal history of pneumonia (recurrent); Z87.891 Personal history of nicotine dependence; Z90.49 Acquired absence of other specified parts of digestive tract

== ENCOUNTER 2016-05-26 05:15 | Inpatient (IN) | payer MEDICARE, MEDICAID ==
[2016-05-26 05:15] VITALS: BMI 18.1
--- NOTE | 2016-05-26 05:26 | C.PDOC ---
History Of Present Illness 80 y/o female presents to the ED with complains of feeling sudden SOB the past few hours. Pt denies chest pain, fever, chills, or any other complaints. Chief Complaint (Nursing): Shortness Of Breath History Per: Patient History/Exam Limitations: no limitations Onset/Duration Of Symptoms: Hrs Current Symptoms Are (Timing): Still Present Associated Symptoms: denies: Fever, Chills, Chest Pain Recent travel outside of the [place]: No Past Medical History Reviewed: Historical Data, Nursing Documentation, Vital Signs Vital Signs: Last Vital Signs Temp 97 F L 05/26/16 05:25 Pulse 69 05/26/16 06:30 Resp 29 H 05/26/16 06:30 BP 115/72 05/26/16 06:30 Pulse Ox 100 05/26/16 06:30 - Medical History PMH: Anxiety, Arthritis (L KNEE FUSION), Asthma, CHF, COPD, Dementia, Diabetes, Gall Bladder Disease, HTN, Osteoporosis, Pneumonia (08/2015), Rheumatoid Arthritis Surgical History: Cholecystectomy, Coronary Stent (proximal RCA stent, 2 weeks ago) - [facility] Procedures ASSISTANCE WITH RESPIRATORY VENTILATION, <24 HRS, CPAP (01/17/16) ASSISTANCE WITH RESPIRATORY VENTILATION, >96 HRS, CPAP (02/28/16) CONTINUOUS INVASIVE MECHANICAL VENTILATION <96 CONSEC HRS (08/07/12) DILATION OF 1 COR ART WITH DRUG-ELUT INTRA, PERC APPROACH (12/29/15) INJECT/INFUSE NEC (02/11/14) LAPAROSCOPIC CHOLECYSTECTOMY (08/07/12) NEBULIZER THERAPY (09/10/13) OXYGEN ENRICHMENT NEC (08/07/12) VITAL CAPACITY DETERMIN (08/07/12) Family History: States: Unknown Family Hx - Social History Hx Tobacco Use: No Hx Alcohol Use: No Hx Substance Use: No - Immunization History Hx Tetanus Toxoid Vaccination: No Hx Influenza Vaccination: No Hx Pneumococcal Vaccination: No Review Of Systems Except As Marked, All Systems Reviewed And Found Negative. Constitutional: Negative for: Fever, Chills Cardiovascular: Negative for: Chest Pain Respiratory: Positive for: Shortness of Breath Physical Exam - Physical Exam Appears: Non-toxic Skin: Warm, Dry, No Rash Head: Atraumatic, Normacephalic Throat: Normal Neck: Normal ROM, Supple Chest: Symmetrical Cardiovascular: Rhythm Regular, No Murmur Respiratory: Rales (bilateral), No Rhonchi, No Wheezing, Other (dyspnea) Gastrointestinal/Abdominal: Soft Extremity: No Pedal Edema Extremity: Bilateral: Atraumatic Neurological/Psych: Oriented x3 ED Course And Treatment - Laboratory Results Result Diagrams: 05/26/16 05:49 05/26/16 05:49 O2 Sat by Pulse Oximetry: 100 (on room air) Pulse Ox Interpretation: Normal Disposition Discussed With : Gisselle Beck Doctor Will See Patient In The: Hospital Counseled Patient/Family Regarding: Diagnosis - Disposition Disposition: HOSPITALIZED Disposition Time: 06:50 Condition: STABLE - POA Present On Arrival: None - Clinical Impression Clinical Impression: Respiratory distress, Acute congestive heart failure - Scribe Statement The provider has reviewed the documentation as recorded by the Ritu Varghese Provider Attestation: All medical record entries made by the Ritu were at my direction and personally dictated by me. I have reviewed the chart and agree that the record accurately reflects my personal performance of the history, physical exam, medical decision making, and the department course for this patient. I have also personally directed, reviewed, and agree with the discharge instructions and disposition.
[2016-05-26 05:55] LABS: BASO # 0.1 K/uL (0.0-0.2); BASO % 0.8 % (0.0-2.0); EOS # 0.2 K/uL (0.0-0.7); EOS % 1.9 % (0.0-4.0); HEMATOCRIT 31.1 % (34.0-47.0); LYMPH # 2.2 K/uL (1.0-4.3); LYMPH % 18.6 % (20.0-40.0); MEAN CELL VOLUME 75.6 fL (81.0-99.0); MEAN CORPUSCULAR HEMOGLOBIN 23.7 pg (27.0-31.0); MEAN CORPUSCULAR HGB CONC 31.4 g/dL (33.0-37.0); MEAN PLATELET VOLUME 10.4 fL (7.2-11.7); MONO # 0.9 K/uL (0.0-0.8); MONO % 7.9 % (0.0-10.0); NRBC % 0.1 % (0.0-2.0); WHITE BLOOD COUNT 11.7 K/uL (4.8-10.8)
[2016-05-26 06:03] LABS: POTASSIUM 3.8 mmol/L (3.6-5.2)
[2016-05-26 06:05] LABS: ALB/GLOB RATIO 1.2 (1.0-2.1); BILIRUBIN,TOTAL 0.8 mg/dL (0.2-1.3); TOTAL PROTEIN 7.8 g/dL (6.3-8.3)
[2016-05-26 06:06] LABS: CALCIUM 8.7 mg/dl (8.6-10.4)
[2016-05-26 06:18] LABS: TROPONIN I 0.032 ng/mL (0.00-0.120)
[2016-05-26 07:49] LABS: INR 1.2
--- NOTE | 2016-05-26 08:24 | RAD ---
HISTORY: sob COMPARISON: 05/14/2016 FINDINGS: LUNGS: The prior pulmonary venous congestion appearance has increased/ now rounded coalescent masslike opacity at the right lung base and nodular prominence to the right hilum are suggested in the short interval time frame this is likely coalescent pulmonary edema than a mass . A superimposed patchy infiltrate the right lung base is not excluded. PLEURA: No significant pleural effusion identified, no pneumothorax apparent. CARDIOVASCULAR: Mild cardiomegaly OSSEOUS STRUCTURES: Levoscoliosis VISUALIZED UPPER ABDOMEN: Normal. OTHER FINDINGS: None. IMPRESSION: Worsening pulmonary edema -with coalescence at the right lung base. A concomitant interval patchy infiltrate here is not excluded.
--- NOTE | 2016-05-26 10:19 | CP.PCM.PN ---
Subjective - Date & Time of Evaluation Date of Evaluation: 05/26/16 Time of Evaluation: 11:00 - Subjective Subjective: Dr. Beck service: Patient admitted for shortness of breath and fluid overloaded. She became short of breath last night over the period of about 6 hours. She says she felt like she could not take a deep breath. She was with her daughter in the room who is wondering why she is back in the hospital. She denies fever, chills, nausea, vomiting, changes in vision, changes in hearing, cough, dysuria, diarrhea, constipation, joint pain or stiffness. PMH: HTN, anxiety, COPD, CAD Objective - Vital Signs/Intake and Output Vital Signs (last 24 hours): Temp Pulse Resp BP Pulse Ox 97.8 F 76 22 136/83 94 L 05/26/16 07:10 05/26/16 07:10 05/26/16 07:10 05/26/16 07:10 05/26/16 07:10 Intake and Output: 05/26/16 05/26/16 06:59 18:59 Output Total 400 Balance -400 - Labs Labs: PT 13.5 SECONDS (9.7-12.2) H 05/26/16 05:49 INR 1.2 05/26/16 05:49 APTT 29 SECONDS (21-34) 05/26/16 05:49 - Constitutional Appears: Non-toxic, No Acute Distress, Confused - Head Exam Head Exam: NORMAL INSPECTION - Eye Exam Eye Exam: Normal appearance, PERRL Pupil Exam: NORMAL ACCOMODATION - ENT Exam ENT Exam: Normal Exam - Respiratory Exam Respiratory Exam: Clear to Ausculation Bilateral. absent: Rhonchi, Wheezes - Cardiovascular Exam Cardiovascular Exam: REGULAR RHYTHM, RRR, +S1, +S2. absent: Gallop, Rubs - GI/Abdominal Exam GI & Abdominal Exam: Soft, Normal Bowel Sounds. absent: Tenderness - Back Exam Back Exam: NORMAL INSPECTION - Psychiatric Exam Psychiatric exam: Anxious - Skin Skin Exam: Warm Assessment and Plan (1) Acute CHF Assessment & Plan: Patient admitted to tele/inpatient. Lasix 20mg IVP Q12H kee panels follow up Last echo showed normal EF Follow up lower extremity doppler. Status: Suspected (2) Pneumonia Assessment & Plan: CXR shows infiltrate in the right lower lobe. Avelox 40mg Status: Acute (3) Hypertension Assessment & Plan: Cozaar 25mg, Lasix 20mg IVP Q12H, Coreg 6.25mg Status: Chronic (4) CAD (coronary artery disease) Assessment & Plan: Aspirin 81mg, Plavix 75mg, Crestor 5mg Monitor patient on tele. Status: Chronic (5) Anxiety Assessment & Plan: Xanax 1mg Q12H prn Lexapro 5mg Status: Chronic (6) COPD (chronic obstructive pulmonary disease) Assessment & Plan: Singular 10mg Status: Chronic (7) Prophylactic measure Assessment & Plan: Heparin 5000 units SC q12h pepcid 20mg bid Status: Acute
[2016-05-26] MEDS ORDERED: Pantoprazole 40 mg EC Tab PO SCH (12:15)
[2016-05-26] MEDS: Ranolazine 500 mg Extended Release Tablets PO SCH (17:19)
[2016-05-26] MEDS ORDERED: Moxifloxacin IV 400mg/250ml NS 250 ML IVPB SCH ×2 (17:30→19:00)
[2016-05-27 06:07] LABS: BASO # 0.1 K/uL (0.0-0.2); EOS # 0.2 K/uL (0.0-0.7); EOS % 2.5 % (0.0-4.0); LYMPH # 2.4 K/uL (1.0-4.3); LYMPH % 28.2 % (20.0-40.0); MEAN CELL VOLUME 73.2 fL (81.0-99.0); MEAN CORPUSCULAR HEMOGLOBIN 23.9 pg (27.0-31.0); MEAN CORPUSCULAR HGB CONC 32.7 g/dL (33.0-37.0); MEAN PLATELET VOLUME 10.2 fL (7.2-11.7); MONO # 0.9 K/uL (0.0-0.8); RED CELL DISTRIBUTION WIDTH 15.8 % (11.5-14.5); WHITE BLOOD COUNT 8.3 K/uL (4.8-10.8)
[2016-05-27 06:22] LABS: CHLORIDE 93 mmol/L (98-107); POTASSIUM 3.8 mmol/L (3.6-5.2); SODIUM 139 mmol/L (132-148)
[2016-05-27 06:24] LABS: ALB/GLOB RATIO 1.3 (1.0-2.1); ALKALINE PHOSPHATASE 58 U/L (38-126); AST/SGOT 23 U/L (14-36); BILIRUBIN,TOTAL 1.3 mg/dL (0.2-1.3); BLOOD UREA NITROGEN 24 mg/dL (7-17); CARBON DIOXIDE 29 mmol/L (22-30); CHOLESTEROL 121 mg/dL (0-199); GFR AFRICAN-AMERICAN > 60; GLUCOSE,RANDOM 83 mg/dL (65-105); TOTAL PROTEIN 7.2 g/dL (6.3-8.3)
[2016-05-27 06:25] LABS: ALT/SGPT 21 U/L (9-52); CALCIUM 8.3 mg/dl (8.6-10.4)
[2016-05-27 06:56] LABS: THYROID STIMULATING HORMONE 1.04 mIU/L (0.46-4.68)
[2016-05-27] MEDS ORDERED: Influenza Virus Vaccine 45 mcg/0.5 ml Syr IM ONE (10:00)
[2016-05-27] MEDS: Ranolazine 500 mg Extended Release Tablets PO SCH ×2 (11:00→17:44)
--- NOTE | 2016-05-27 11:17 | RAD ---
HISTORY: short of breath COMPARISON: 05/26/2016 FINDINGS: LUNGS: There is interval improved aeration in both lungs and significant improvement in pulmonary venous congestion. The lungs are hyperinflated and there is peribronchial thickening. There is no focal consolidation. PLEURA: No significant pleural effusion identified, no pneumothorax apparent. CARDIOVASCULAR: There is persistent mild cardiomegaly. Atherosclerotic aortic arch calcifications are present. OSSEOUS STRUCTURES: There is severe levoscoliosis in the thoracolumbar spine. VISUALIZED UPPER ABDOMEN: Normal. OTHER FINDINGS: None. IMPRESSION: 1. Interval significant improved aeration in both lungs and significant improvement in pulmonary venous congestion. Persistent mild cardiomegaly. 2. COPD.
--- NOTE | 2016-05-27 19:26 | CP.PCM.PN ---
Subjective - Date & Time of Evaluation Date of Evaluation: 05/27/16 Time of Evaluation: 09:00 - Subjective Subjective: Dr. Beck service: Patient is seen and examined in room. She reports not feeling well and being very anxious about being short of breath at home. She denies fever, chills, nausea, vomiting, diarrhea, palpitations, shortness of breath. Objective - Vital Signs/Intake and Output Vital Signs (last 24 hours): Temp Pulse Resp BP Pulse Ox 97.2 F L 72 18 94/56 L 100 05/27/16 17:00 05/27/16 17:00 05/27/16 17:00 05/27/16 17:00 05/27/16 17:00 - Medications Medications: Current Medications Alprazolam (Xanax) 1 mg PO Q12 [facility] Last Admin: 05/27/16 11:00 Dose: 1 mg Aspirin (Ecotrin) 81 mg PO DAILY [facility] Last Admin: 05/27/16 11:00 Dose: 81 mg Carvedilol (Coreg) 6.25 mg PO BID [facility] Last Admin: 05/27/16 17:41 Dose: Not Given Clopidogrel Bisulfate (Plavix) 75 mg PO DAILY [facility] Last Admin: 05/27/16 11:00 Dose: 75 mg Escitalopram Oxalate (Lexapro) 5 mg PO DAILY [facility] Last Admin: 05/27/16 11:00 Dose: 5 mg Famotidine (Pepcid) 20 mg PO BID [facility] Last Admin: 05/27/16 17:44 Dose: 20 mg Furosemide (Lasix) 20 mg IVP Q12H [facility] Last Admin: 05/27/16 11:13 Dose: 20 mg Heparin Sodium (Porcine) (Heparin) 5,000 units SC Q12 [facility] Last Admin: 05/27/16 11:00 Dose: 5,000 units Moxifloxacin HCl (Avelox Iv 400mg/250ml Ns) 250 mls @ 167 mls/hr IVPB Q24H [facility] Last Admin: 05/26/16 18:33 Dose: 167 mls/hr Losartan Potassium (Cozaar) 25 mg PO DAILY [facility] Last Admin: 05/27/16 11:01 Dose: 25 mg Montelukast Sodium (Singulair) 10 mg PO HS [facility] Last Admin: 05/26/16 21:51 Dose: 10 mg Pneumococcal Polyvalent Vaccine (Pneumovax 23 Vaccine) 0.5 ml IM .ONCE ONE Stop: 05/28/16 10:01 Ranolazine (Ranexa) 500 mg PO BID [facility] Last Admin: 05/27/16 17:44 Dose: 500 mg Rosuvastatin Calcium (Crestor) 10 mg PO HS [facility] Last Admin: 05/26/16 21:51 Dose: 10 mg - Labs Labs: 05/27/16 05:58 05/27/16 05:58 PT 13.5 SECONDS (9.7-12.2) H 05/26/16 05:49 INR 1.2 05/26/16 05:49 APTT 29 SECONDS (21-34) 05/26/16 05:49 - Constitutional Appears: Non-toxic, No Acute Distress, Other - Head Exam Head Exam: NORMAL INSPECTION - Eye Exam Eye Exam: Normal appearance, PERRL Pupil Exam: NORMAL ACCOMODATION - Respiratory Exam Respiratory Exam: Rhonchi. absent: Clear to Ausculation Bilateral, Rales, Wheezes - Cardiovascular Exam Cardiovascular Exam: REGULAR RHYTHM, RRR, +S1, +S2. absent: Gallop, Rubs - GI/Abdominal Exam GI & Abdominal Exam: Soft. absent: Tenderness - Back Exam Back Exam: NORMAL INSPECTION - Neurological Exam Neurological Exam: Alert - Psychiatric Exam Psychiatric exam: Anxious, Normal Affect, Normal Mood - Skin Skin Exam: Normal Color Assessment and Plan - Assessment and Plan (Free Text) Assessment: (1) Acute CHF Assessment & Plan: 05/27: repeat cxr improved, kee panel negative, lower extremity doppler Patient admitted to tele/inpatient. Lasix 20mg IVP Q12H kee panels follow up Last echo showed normal EF Follow up lower extremity doppler read still pending. Status: Suspected (3) Hypertension Assessment & Plan: Cozaar 25mg, Lasix 20mg IVP Q12H, Coreg 6.25mg Status: Chronic (4) CAD (coronary artery disease) Assessment & Plan: Aspirin 81mg, Plavix 75mg, Crestor 5mg Monitor patient on tele. Status: Chronic (5) Anxiety Assessment & Plan: Xanax 1mg Q12H prn Lexapro 5mg Status: Chronic (6) COPD (chronic obstructive pulmonary disease) Assessment & Plan: Singular 10mg Status: Chronic (7) Prophylactic measure Assessment & Plan: Heparin 5000 units SC q12h pepcid 20mg bid Status: Acute
--- NOTE | 2016-05-28 06:29 | CARD ---
APPROVED REPORT EKG Measurement Heart [id number] <Conclusion> Sinus rhythm with premature atrial complexes Left axis deviation Left ventricular hypertrophy with QRS widening Possible Lateral infarct, age undetermined Abnormal ECG
--- NOTE | 2016-05-28 06:30 | CARD ---
APPROVED REPORT EKG Measurement Heart [id number] <Conclusion> Sinus rhythm with premature atrial complexes with aberrant conduction Left axis deviation Minimal voltage criteria for LVH, may be normal variant Inferior infarct, age undetermined Anterolateral infarct, age undetermined Abnormal ECG
[2016-05-28] MEDS: Ranolazine 500 mg Extended Release Tablets PO SCH ×2 (09:54→17:56)
[2016-05-28] MEDS ORDERED: Pneumococcal 23-Valent Vaccine IM ONE (10:00)
--- NOTE | 2016-05-28 15:02 | VASCLAB ---
PROCEDURE: Lower Extremity Venous Duplex Exam. HISTORY: elevated D-dimer PRIORS: None. TECHNIQUE: Bilateral common femoral, femoral, popliteal and posterior tibial, peroneal and great saphenous veins were evaluated. Flow was assessed with color Doppler, compressibility, assessment of phasic flow and augmentation response. Report prepared by Jere Mendoza, COTY, RVT FINDINGS: RIGHT: 1. Common Femoral Vein: 1.1. Compressibility - Fully compressible: Thrombus - None : Flow - Phasic: Augmentation -Normal: Reflux - None. 2. Femoral Vein: 2.1. Compressibility - Fully compressible: Thrombus - None : Flow - Phasic: Augmentation -Normal: Reflux - None. 3. Popliteal Vein: 3.1. Compressibility - Fully compressible: Thrombus - None : Flow - Phasic: Augmentation -Normal: Reflux - None. 4. Posterior Tibial Vein: 4.1. Compressibility - Fully compressible: Thrombus - None: Flow - Phasic: Augmentation -Normal: Reflux - None. 5. Peroneal Vein: 5.1. Compressibility - Fully compressible: Thrombus - None: Flow - Phasic: Augmentation -Normal: Reflux - None. 6. Great Saphenous Vein: 6.1. Compressibility - Fully compressible: Thrombus - None: Flow - Phasic: Augmentation - Normal: Reflux - None. LEFT: 1. Common Femoral Vein: 1.1. Compressibility - Fully compressible: Thrombus - None: Flow - Phasic: Augmentation -Normal: Reflux - None. 2. Femoral Vein: 2.1. Compressibility - Fully compressible: Thrombus - None: Flow - Phasic: Augmentation -Normal: Reflux - None. 3. Popliteal Vein: 3.1. Compressibility - Fully compressible: Thrombus - None : Flow - Phasic: Augmentation -Normal: Reflux - None. 4. Posterior Tibial Vein: 4.1. Compressibility - Fully compressible: Thrombus - None: Flow - Phasic: Augmentation -Normal: Reflux - None. 5. Peroneal Vein: 5.1. Compressibility - Fully compressible: Thrombus - None: Flow - Phasic: Augmentation -Normal: Reflux - None. 6. Great Saphenous Vein: 6.1. Compressibility - Fully compressible: Thrombus - None: Flow - Phasic: Augmentation - Normal: Reflux - None. OTHER FINDINGS: Right: None significant. Left: None significant. IMPRESSION: Right: No evidence of deep or superficial vein thrombosis of the right lower extremity. Normal valve function noted of the right side. Left: No evidence of deep or superficial vein thrombosis of the left lower extremity. Normal valve function noted of the left side.
[2016-05-29] MEDS ORDERED: Oxycodone/Acetaminophen 5/325 mg Tab PO ONE (06:07)
[2016-05-29] MEDS: Ranolazine 500 mg Extended Release Tablets PO SCH ×2 (10:34→17:40)
[2016-05-29] MEDS: Oxycodone/Acetaminophen 5/325 mg Tab PO PRN (17:39)
[2016-05-30] MEDS: Ranolazine 500 mg Extended Release Tablets PO SCH ×2 (10:04→17:51)
--- NOTE | 2016-05-30 10:08 | CP.PCM.PN ---
Subjective - Date & Time of Evaluation Date of Evaluation: 05/30/16 Time of Evaluation: 10:25 - Subjective Subjective: Dr. Beck service: Patient seen and examined in room. Patient reports a fear that she will become very short of breath at home with no one to help. Spoke with patient's family members to try to help her at home as much as possible. Objective - Vital Signs/Intake and Output Vital Signs (last 24 hours): Temp Pulse Resp BP Pulse Ox 97.8 F 99 H 17 115/64 96 05/30/16 07:35 05/30/16 07:35 05/30/16 07:35 05/30/16 10:03 05/30/16 07:35 Intake and Output: 05/30/16 05/30/16 06:59 18:59 Intake Total 600 Balance 600 - Medications Medications: Current Medications Alprazolam (Xanax) 1 mg PO Q12 [facility] Last Admin: 05/30/16 10:04 Dose: 1 mg Aspirin (Ecotrin) 81 mg PO DAILY [facility] Last Admin: 05/30/16 10:03 Dose: 81 mg Carvedilol (Coreg) 6.25 mg PO BID [facility] Last Admin: 05/30/16 10:02 Dose: 6.25 mg Clopidogrel Bisulfate (Plavix) 75 mg PO DAILY [facility] Last Admin: 05/30/16 10:04 Dose: 75 mg Escitalopram Oxalate (Lexapro) 5 mg PO DAILY [facility] Last Admin: 05/30/16 10:03 Dose: 5 mg Famotidine (Pepcid) 20 mg PO BID [facility] Last Admin: 05/30/16 10:03 Dose: 20 mg Furosemide (Lasix) 20 mg IVP Q12H [facility] Last Admin: 05/30/16 10:03 Dose: 20 mg Moxifloxacin HCl (Avelox Iv 400mg/250ml Ns) 250 mls @ 167 mls/hr IVPB Q24H [facility] Last Admin: 05/26/16 18:33 Dose: 167 mls/hr Losartan Potassium (Cozaar) 25 mg PO DAILY [facility] Last Admin: 05/30/16 10:03 Dose: 25 mg Megestrol Acetate (Megace) 40 mg PO DAILY [facility] Last Admin: 05/30/16 10:03 Dose: 40 mg Montelukast Sodium (Singulair) 10 mg PO HS [facility] Last Admin: 05/29/16 22:14 Dose: 10 mg Oxycodone/Acetaminophen (Percocet 5/325 Mg Tab) 1 tab PO Q8 PRN PRN Reason: pain Stop: 06/01/16 22:01 Last Admin: 05/29/16 17:39 Dose: 1 tab Ranolazine (Ranexa) 500 mg PO BID [facility] Last Admin: 05/30/16 10:04 Dose: 500 mg Rosuvastatin Calcium (Crestor) 10 mg PO HS [facility] Last Admin: 05/29/16 22:14 Dose: 10 mg - Labs Labs: 05/27/16 05:58 05/27/16 05:58 PT 13.5 SECONDS (9.7-12.2) H 05/26/16 05:49 INR 1.2 05/26/16 05:49 APTT 29 SECONDS (21-34) 05/26/16 05:49 - Constitutional Appears: Non-toxic, No Acute Distress, Agitated - Head Exam Head Exam: ATRAUMATIC, NORMAL INSPECTION - Eye Exam Eye Exam: Normal appearance, PERRL. absent: Nystagmus Pupil Exam: NORMAL ACCOMODATION - ENT Exam ENT Exam: Mucous Membranes Moist - Respiratory Exam Respiratory Exam: Clear to Ausculation Bilateral. absent: Rales, Rhonchi, Wheezes - Cardiovascular Exam Cardiovascular Exam: REGULAR RHYTHM, +S1, +S2. absent: Gallop, Rubs - GI/Abdominal Exam GI & Abdominal Exam: Soft, Normal Bowel Sounds. absent: Tenderness - Extremities Exam Extremities Exam: Normal Inspection. absent: Pedal Edema - Back Exam Back Exam: NORMAL INSPECTION. absent: CVA tenderness (L), CVA tenderness (R) - Psychiatric Exam Psychiatric exam: Normal Affect, Normal Mood - Skin Skin Exam: Dry, Normal Color Assessment and Plan - Assessment and Plan (Free Text) Assessment: (1) Acute CHF Assessment & Plan: 05/30: Doppler negative for DVT Cardiology evaluation for an irregular rythm seen on Tele. Aspirin increased from 81mg to 325mg, continue her other HTN medications. Plan is to discharge patient tomorrow with scripts in her chart. 05/27: repeat cxr improved, kee panel negative, lower extremity doppler Patient admitted to tele/inpatient. Lasix 20mg IVP Q12H kee panels follow up Last echo showed normal EF Follow up lower extremity doppler read still pending. Status: Suspected (3) Hypertension Assessment & Plan: Cozaar 25mg, Lasix 20mg IVP Q12H, Coreg 6.25mg Status: Chronic (4) CAD (coronary artery disease) Assessment & Plan: Aspirin 81mg, Plavix 75mg, Crestor 5mg Monitor patient on tele. Status: Chronic (5) Anxiety Assessment & Plan: Xanax 1mg Q12H prn Lexapro 5mg Status: Chronic (6) COPD (chronic obstructive pulmonary disease) Assessment & Plan: Singular 10mg Status: Chronic (7) Prophylactic measure Assessment & Plan: Heparin 5000 units SC q12h pepcid 20mg bid Status: Acute
--- NOTE | 2016-05-30 10:09 | HP ---
The patient has been admitted to the hospital with chief complaints of shortness of breath, weakness, fatigue, tiredness. The patient found to have pulmonary edema. Treated with BiPAP with supportive care. The patient in the Emergency was advised admission. The patient has congestive heart failure, coronary artery disease, anxiety and depression. The patient is an ex-smoker. PHYSICAL EXAMINATION: GENERAL: Awake, alert, oriented. VITAL SIGNS: Temperature 98, pulse 90. HEENT: Within normal limits. NECK: Supple. CHEST: Symmetrical. HEART: Tachycardic. ABDOMEN: Soft. EXTREMITIES: No edema. ASSESSMENT: The patient suffers from congestive heart failure. Rule out angina. The patient placed on bedrest, supportive care, diuresis, social service evaluation. Gisselle Vogel MD cc: [id number] TT: 05/27/2016 11:34:58 ms
--- NOTE | 2016-05-30 10:24 | PN ---
DATE: 05/28/2016 The patient receiving supportive care. Continue treatment. Short of breath. Extremely tired and fa tigued. Gisselle Vogel MD cc: [id number] TT: 05/28/2016 20:02:42 Confirmation # [id number] Dictation # [id number] ln 05/30/2016 09:23:50
[2016-05-30 11:34] LABS: BASO # 0.1 K/uL (0.0-0.2); BASO % 0.9 % (0.0-2.0); EOS # 0.3 K/uL (0.0-0.7); EOS % 3.5 % (0.0-4.0); HEMATOCRIT 32.8 % (34.0-47.0); LYMPH # 2.3 K/uL (1.0-4.3); LYMPH % 27.1 % (20.0-40.0); MEAN CELL VOLUME 74.3 fL (81.0-99.0); MEAN CORPUSCULAR HEMOGLOBIN 23.4 pg (27.0-31.0); MEAN CORPUSCULAR HGB CONC 31.5 g/dL (33.0-37.0); MEAN PLATELET VOLUME 10.3 fL (7.2-11.7); MONO # 1.1 K/uL (0.0-0.8); MONO % 13.1 % (0.0-10.0); NRBC % 0.1 % (0.0-2.0); RED CELL DISTRIBUTION WIDTH 16.1 % (11.5-14.5); WHITE BLOOD COUNT 8.4 K/uL (4.8-10.8)
[2016-05-30 11:39] LABS: CHLORIDE 93 mmol/L (98-107); SODIUM 141 mmol/L (132-148)
[2016-05-30 11:40] LABS: POTASSIUM 3.2 mmol/L (3.6-5.2)
[2016-05-30 11:42] LABS: ALB/GLOB RATIO 1.3 (1.0-2.1); ALKALINE PHOSPHATASE 72 U/L (38-126); ALT/SGPT 13 U/L (9-52); AST/SGOT 28 U/L (14-36); BILIRUBIN,TOTAL 0.7 mg/dL (0.2-1.3); BLOOD UREA NITROGEN 20 mg/dL (7-17); CARBON DIOXIDE 27 mmol/L (22-30); GFR AFRICAN-AMERICAN > 60; GLUCOSE,RANDOM 93 mg/dL (65-105); TOTAL PROTEIN 8.5 g/dL (6.3-8.3)
[2016-05-30 11:43] LABS: CALCIUM 9.1 mg/dl (8.6-10.4)
[2016-05-30] MEDS: Potassium Chloride 20 mEq ER Tab PO SCH ×2 (12:09→13:08)
--- NOTE | 2016-05-30 12:27 | CP.PCM.CON ---
<Claritza Clifton - Last Filed: 05/30/16 13:59> History of Present Illness - History of Present Illness History of Present Illness: Cardiology Consult Note for Dr. 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 Patient has been stable throughout her stay. It was noted on the teletypesetter monitor that the pt's HR became irregular. She was asymptomatic at this time. She denies having CP, SOB, n/v/d, numbness/tingling. Patient is lethargic upon interview. Family is at bedside to obtain history. It is noted to be recently d/c from the hospital on for SOB. Her home medications were changed to increased her Lasix 20mg PO to 40mg and her Brillinta was changed to Plavix. Patient is also noted to have an echo on 05/15/16, which showed EF of 55% with some LV dysfunction. PMH: HTN, CAD, Anxiety, COPD, MT x 2, diastolic CHF PSH: Drug eluting stent in RCA (Dec 2015), cholecystectomy (2014), Hysterectomy , Vocal cord surgery Home meds: ASA, Coreg, Lasix, Plavix, lipitor, Cozaar, Xanax, Percocet, Ranexa, Megace, Lexapro All: Moxifloxacin (rash and swelling) SH: Heavy former smoked (quit 1yr ago), denies EtOH and drug use, lives with family FH: Non-contributory PMD: Dr. Beck Review of Systems - Review of Systems Review of Systems: As per HPI Past Patient History - Infectious Disease Hx of Infectious Diseases: None - Tetanus Immunizations Tetanus Immunization: Unknown - Past Medical History & Family History Past Medical History?: Yes - Past Social History Smoking Status: Never Smoked - CARDIAC Hx Hypertension: Yes - PULMONARY Hx Chronic Obstructive Pulmonary Disease (COPD): Yes - NEUROLOGICAL Hx Dementia: Yes - HEENT Hx HEENT Problems: No - RENAL Hx Chronic Kidney Disease: No Hx Kidney Stones: No - ENDOCRINE/METABOLIC Hx Hyperthyroidism: No Hx Hypothyroidism: No - HEMATOLOGICAL/ONCOLOGICAL Hx Anemia: No Hx Human Immunodeficiency Virus (HIV): No Hx Sickle Cell Disease: No - INTEGUMENTARY Hx Dermatological Problems: No - MUSCULOSKELETAL/RHEUMATOLOGICAL Hx Arthritis: Yes - GASTROINTESTINAL Hx Gall Bladder Disease: Yes - GENITOURINARY/GYNECOLOGICAL Hx Sexually Transmitted Disorders: No - PSYCHIATRIC Hx Anxiety: Yes Hx Substance Use: No - SURGICAL HISTORY Hx Cholecystectomy: Yes Hx Coronary Stent: Yes (proximal RCA stent, 2 weeks ago) - ANESTHESIA Hx Anesthesia: Yes Hx Anesthesia Reactions: No Hx Malignant Hyperthermia: No Meds Allergies/Adverse Reactions: Allergies Allergy/AdvReac Type Severity Reaction Status Date / Time moxifloxacin HCl Allergy Severe ANAPHYLAXIS Verified 05/26/16 05:23 [From Avelox] - Medications Medications: Current Medications Alprazolam (Xanax) 1 mg PO Q12 [facility] Last Admin: 05/30/16 10:04 Dose: 1 mg Aspirin (Ecotrin) 81 mg PO DAILY [facility] Last Admin: 05/30/16 10:03 Dose: 81 mg Carvedilol (Coreg) 6.25 mg PO BID [facility] Last Admin: 05/30/16 10:02 Dose: 6.25 mg Clopidogrel Bisulfate (Plavix) 75 mg PO DAILY [facility] Last Admin: 05/30/16 10:04 Dose: 75 mg Escitalopram Oxalate (Lexapro) 5 mg PO DAILY [facility] Last Admin: 05/30/16 10:03 Dose: 5 mg Famotidine (Pepcid) 20 mg PO BID [facility] Last Admin: 05/30/16 10:03 Dose: 20 mg Furosemide (Lasix) 20 mg IVP Q12H [facility] Last Admin: 05/30/16 10:03 Dose: 20 mg Losartan Potassium (Cozaar) 25 mg PO DAILY [facility] Last Admin: 05/30/16 10:03 Dose: 25 mg Megestrol Acetate (Megace) 40 mg PO DAILY [facility] Last Admin: 05/30/16 10:03 Dose: 40 mg Montelukast Sodium (Singulair) 10 mg PO HS [facility] Last Admin: 05/29/16 22:14 Dose: 10 mg Oxycodone/Acetaminophen (Percocet 5/325 Mg Tab) 1 tab PO Q8 PRN PRN Reason: pain Stop: 06/01/16 22:01 Last Admin: 05/29/16 17:39 Dose: 1 tab Potassium Chloride (K-Dur 20 Meq Er Tab) 40 meq PO Q1H [facility] Stop: 05/30/16 13:01 Last Admin: 05/30/16 12:09 Dose: 40 meq Ranolazine (Ranexa) 500 mg PO BID [facility] Last Admin: 05/30/16 10:04 Dose: 500 mg Rosuvastatin Calcium (Crestor) 10 mg PO HS [facility] Last Admin: 05/29/16 22:14 Dose: 10 mg Physical Exam - Constitutional Appears: No Acute Distress - Head Exam Head Exam: NORMAL INSPECTION, NORMOCEPHALIC - Eye Exam Eye Exam: Normal appearance Pupil Exam: NORMAL ACCOMODATION - ENT Exam ENT Exam: Mucous Membranes Moist - Respiratory Exam Respiratory Exam: Clear to Auscultation Bilateral, NORMAL BREATHING PATTERN. absent: Rales, Rhonchi, Wheezes - Cardiovascular Exam Cardiovascular Exam: REGULAR RHYTHM, +S1, +S2. absent: Tachycardia, Gallop, Rubs, Systolic Murmur - GI/Abdominal Exam GI & Abdominal Exam: Normal Bowel Sounds, Soft. absent: Guarding, Mass, Rebound , Rigid, Tenderness - Extremities Exam Extremities exam: Positive for: normal inspection. Negative for: calf tenderness, pedal edema - Neurological Exam Neurological exam: Alert, CN II-XII Intact - Skin Skin Exam: Dry, Normal Color, Warm Results - Vital Signs Recent Vital Signs: Last Vital Signs Temp 97.8 F 05/30/16 07:35 Pulse 80 05/30/16 11:20 Resp 17 05/30/16 07:35 BP 115/64 05/30/16 10:03 Pulse Ox 98 05/30/16 11:20 - Labs Result Diagrams: 05/30/16 11:19 05/30/16 11:19 Labs: Laboratory Results - last 24 hr 05/29/16 05/29/16 05/30/16 16:54 21:15 06:25 WBC RBC Hgb Hct MCV MCH MCHC RDW Plt Count MPV Neut % (Auto) Lymph % (Auto) [place] % (Auto) Eos % (Auto) Baso % (Auto) Neut # Lymph # [place] # Eos # Baso # Sodium Potassium Chloride Carbon Dioxide Anion Gap BUN Creatinine Est GFR ( Amer) Est GFR (Non-Af Amer) POC Glucose (mg/dL) 110 126 H 92 Random Glucose Calcium Total Bilirubin AST ALT Alkaline Phosphatase Total Protein Albumin Globulin Albumin/Globulin Ratio 05/30/16 05/30/16 11:19 11:31 WBC 8.4 RBC 4.41 Hgb 10.3 L Hct 32.8 L MCV 74.3 L MCH 23.4 L MCHC 31.5 L RDW 16.1 H Plt Count 298 MPV 10.3 Neut % (Auto) 55.4 Lymph % (Auto) 27.1 [place] % (Auto) 13.1 H Eos % (Auto) 3.5 Baso % (Auto) 0.9 Neut # 4.6 Lymph # 2.3 [place] # 1.1 H Eos # 0.3 Baso # 0.1 Sodium 141 Potassium 3.2 L Chloride 93 L Carbon Dioxide 27 Anion Gap 24 H BUN 20 H Creatinine 0.9 Est GFR ( Amer) > 60 Est GFR (Non-Af Amer) 60 POC Glucose (mg/dL) 99 Random Glucose 93 Calcium 9.1 Total Bilirubin 0.7 AST 28 ALT 13 Alkaline Phosphatase 72 Total Protein 8.5 H Albumin 4.8 Globulin 3.7 Albumin/Globulin Ratio 1.3 Assessment & Plan - Assessment and Plan (Free Text) Assessment: This is an 81Y F with PMH of HTN, CAD, anxiety, COPD, 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 Sj Clifton PGY1 - Date & Time Date: 05/30/16 Time: 13:00 <Iraida Gustafson - Last Filed: 06/01/16 09:27> Results - Vital Signs Recent Vital Signs: Last Vital Signs Temp 97.5 F L 05/31/16 15:10 Pulse 74 05/31/16 15:10 Resp 20 05/31/16 15:10 BP 126/75 05/31/16 15:10 Pulse Ox 100 05/31/16 15:10 - Labs Result Diagrams: 05/31/16 11:33 05/31/16 11:33 Labs: Laboratory Results - last 24 hr 05/31/16 05/31/16 05/31/16 11:33 11:36 16:17 WBC 6.4 RBC 4.40 Hgb 10.4 L Hct 32.7 L MCV 74.4 L MCH 23.7 L MCHC 31.9 L RDW 15.5 H Plt Count 318 MPV 10.0 Neut % (Auto) 51.8 Lymph % (Auto) 36.5 [place] % (Auto) 7.7 Eos % (Auto) 3.3 Baso % (Auto) 0.7 Neut # 3.3 Lymph # 2.3 [place] # 0.5 Eos # 0.2 Baso # 0.0 Sodium 137 Potassium 3.9 Chloride 93 L Carbon Dioxide 26 Anion Gap 23 H BUN 25 H Creatinine 1.0 Est GFR ( Amer) > 60 Est GFR (Non-Af Amer) 53 POC Glucose (mg/dL) 117 H 88 Random Glucose 160 H Calcium 9.1 Total Bilirubin 0.8 AST 23 ALT 8 L D Alkaline Phosphatase 69 Total Protein 8.4 H Albumin 4.7 Globulin 3.7 Albumin/Globulin Ratio 1.3 Attending/Attestation - Attestation I have personally seen and examined this patient.: Yes I have fully participated in the care of the patient.: Yes I have reviewed all pertinent clinical information: Yes Notes (Text): 06/01/16 09:27 asa and plavix for cva prohylaxis. Kindra pt
[2016-05-30] MEDS: Oxycodone/Acetaminophen 5/325 mg Tab PO PRN (22:11)
--- NOTE | 2016-05-30 22:23 | CARD ---
APPROVED REPORT EKG Measurement Heart [id number] <Conclusion> Sinus rhythm with premature atrial complexes with aberrant conduction Left axis deviation Anterior infarct, age undetermined Abnormal ECG
--- NOTE | 2016-05-31 09:53 | CP.PCM.PN ---
Subjective - Date & Time of Evaluation Date of Evaluation: 05/31/16 Time of Evaluation: 07:15 - Subjective Subjective: PGY2 Medicine Note - Dr. Beck's Service: Patient seen and examined at bedside this AM. Patient says she has a slight headache and feels dizzy sometimes. Patient denies fever, chills, chest pain, SOB, abdominal pain, nausea, vomiting, diarrhea, dysuria. Objective - Vital Signs/Intake and Output Vital Signs (last 24 hours): Temp Pulse Resp BP Pulse Ox 98.6 F 69 18 112/69 96 05/31/16 07:30 05/31/16 07:30 05/31/16 07:30 05/31/16 07:30 05/31/16 07:30 Intake and Output: 05/31/16 05/31/16 06:59 18:59 Intake Total 150 Balance 150 - Medications Medications: Current Medications Alprazolam (Xanax) 1 mg PO Q12 [facility] Last Admin: 05/30/16 21:30 Dose: 1 mg Aspirin (Ecotrin) 325 mg PO DAILY [facility] Carvedilol (Coreg) 6.25 mg PO BID [facility] Last Admin: 05/30/16 21:21 Dose: Not Given Clopidogrel Bisulfate (Plavix) 75 mg PO DAILY [facility] Last Admin: 05/30/16 10:04 Dose: 75 mg Escitalopram Oxalate (Lexapro) 5 mg PO DAILY [facility] Last Admin: 05/30/16 10:03 Dose: 5 mg Famotidine (Pepcid) 20 mg PO BID [facility] Last Admin: 05/30/16 17:51 Dose: 20 mg Furosemide (Lasix) 20 mg IVP Q12H [facility] Last Admin: 05/30/16 23:05 Dose: 20 mg Losartan Potassium (Cozaar) 25 mg PO DAILY [facility] Last Admin: 05/30/16 10:03 Dose: 25 mg Megestrol Acetate (Megace) 40 mg PO DAILY [facility] Last Admin: 05/30/16 10:03 Dose: 40 mg Montelukast Sodium (Singulair) 10 mg PO HS [facility] Last Admin: 05/30/16 21:30 Dose: 10 mg Oxycodone/Acetaminophen (Percocet 5/325 Mg Tab) 1 tab PO Q8 PRN PRN Reason: pain Stop: 06/01/16 22:01 Last Admin: 05/30/16 22:11 Dose: 1 tab Ranolazine (Ranexa) 500 mg PO BID [facility] Last Admin: 05/30/16 17:51 Dose: 500 mg Rosuvastatin Calcium (Crestor) 10 mg PO HS [facility] Last Admin: 05/30/16 21:30 Dose: 10 mg - Labs Labs: 05/30/16 11:19 05/30/16 11:19 PT 13.5 SECONDS (9.7-12.2) H 05/26/16 05:49 INR 1.2 05/26/16 05:49 APTT 29 SECONDS (21-34) 05/26/16 05:49 - Constitutional Appears: Non-toxic, No Acute Distress, Cachectic, Chronically Ill - Head Exam Head Exam: NORMAL INSPECTION - Eye Exam Eye Exam: EOMI - ENT Exam ENT Exam: Mucous Membranes Moist - Respiratory Exam Respiratory Exam: Clear to Ausculation Bilateral, NORMAL BREATHING PATTERN. absent: Rales, Rhonchi, Wheezes - Cardiovascular Exam Cardiovascular Exam: REGULAR RHYTHM, +S1, +S2. absent: Gallop, Rubs, Murmur - GI/Abdominal Exam GI & Abdominal Exam: Soft, Normal Bowel Sounds. absent: Tenderness - Extremities Exam Extremities Exam: Normal Capillary Refill. absent: Pedal Edema - Neurological Exam Neurological Exam: Alert, Awake - Psychiatric Exam Psychiatric exam: Normal Affect, Normal Mood - Skin Skin Exam: Normal Color, Warm Assessment and Plan - Assessment and Plan (Free Text) Assessment: (1) Acute CHF Assessment & Plan: 05/31: Discharge patient home with script for ASA 325mg PO daily 05/30: Doppler negative for DVT Cardiology evaluation for an irregular rythm seen on Tele. Aspirin increased from 81mg to 325mg, continue her other HTN medications. Plan is to discharge patient tomorrow 05/27: repeat cxr improved, kee panel negative, lower extremity doppler Patient admitted to tele/inpatient. Lasix 20mg IVP Q12H kee panels follow up Last echo showed normal EF Follow up lower extremity doppler read still pending. Status: Suspected (3) Hypertension Assessment & Plan: Cozaar 25mg, Lasix 20mg IVP Q12H, Coreg 6.25mg Status: Chronic (4) CAD (coronary artery disease) Assessment & Plan: Aspirin 81mg, Plavix 75mg, Crestor 5mg Monitor patient on tele. Status: Chronic (5) Anxiety Assessment & Plan: Xanax 1mg Q12H prn Lexapro 5mg Status: Chronic (6) COPD (chronic obstructive pulmonary disease) Assessment & Plan: Singular 10mg Status: Chronic (7) Prophylactic measure Assessment & Plan: Heparin 5000 units SC q12h pepcid 20mg bid Status: Acute
[2016-05-31] MEDS ORDERED: Aspirin 325 mg EC Tablets PO SCH (10:00)
[2016-05-31] MEDS: Oxycodone/Acetaminophen 5/325 mg Tab PO PRN (10:17)
[2016-05-31] MEDS: Ranolazine 500 mg Extended Release Tablets PO SCH ×2 (10:20→17:41)
[2016-05-31 11:43] LABS: BASO % 0.7 % (0.0-2.0); EOS # 0.2 K/uL (0.0-0.7); EOS % 3.3 % (0.0-4.0); HEMATOCRIT 32.7 % (34.0-47.0); LYMPH # 2.3 K/uL (1.0-4.3); LYMPH % 36.5 % (20.0-40.0); MEAN CELL VOLUME 74.4 fL (81.0-99.0); MEAN CORPUSCULAR HEMOGLOBIN 23.7 pg (27.0-31.0); MEAN CORPUSCULAR HGB CONC 31.9 g/dL (33.0-37.0); MONO # 0.5 K/uL (0.0-0.8); MONO % 7.7 % (0.0-10.0); NRBC % 0.1 % (0.0-2.0); RED CELL DISTRIBUTION WIDTH 15.5 % (11.5-14.5); WHITE BLOOD COUNT 6.4 K/uL (4.8-10.8)
--- NOTE | 2016-05-31 12:00 | PCM.HF ---
Heart Failure Core Measure - Heart Failure Ejection Fraction: 40 % or Greater KANDIS Inhibitor Prescribed: No Contraindication/Reason for not providing: ON ARB Beta-Wesley Prescribed: Carvedilol Angiotensin II Receptor Wesley Prescribed: Yes AnticoagulationTherapy for Atrial Fibrillation/Atrialflutter: No Contraindication/Reason for not providing: NO AFIB Aldosterone Antagonist Prescribed: No Contraindication/Reason for not providing: EF >45% Hydralazine Nitrate Prescribed: No Contraindication/Reason for not providing: EF >45% Implantable Cardioverter Defibrillator Therapy: No Contraindication/Reason for not providing: EF >45% Cardiac Resynchronization Therapy Prescribed: No Contraindication/Reason for not providing: EF >45% - Follow up Will be discharged to: Home Follow Up Date (must be within 7 days from discharge): 06/03/16 Follow Up Time: 09:00
[2016-05-31 12:01] LABS: CHLORIDE 93 mmol/L (98-107); POTASSIUM 3.9 mmol/L (3.6-5.2); SODIUM 137 mmol/L (132-148)
[2016-05-31 12:04] LABS: ALB/GLOB RATIO 1.3 (1.0-2.1); ALKALINE PHOSPHATASE 69 U/L (38-126); ALT/SGPT 8 U/L (9-52); AST/SGOT 23 U/L (14-36); BILIRUBIN,TOTAL 0.8 mg/dL (0.2-1.3); BLOOD UREA NITROGEN 25 mg/dL (7-17); CALCIUM 9.1 mg/dl (8.6-10.4); CARBON DIOXIDE 26 mmol/L (22-30); GFR AFRICAN-AMERICAN > 60; GLUCOSE,RANDOM 160 mg/dL (65-105); TOTAL PROTEIN 8.4 g/dL (6.3-8.3)
--- NOTE | 2016-05-31 12:11 | CP.PCM.PN ---
<Claritza Clifton - Last Filed: 05/31/16 12:59> Subjective - Date & Time of Evaluation Date of Evaluation: 05/31/16 Time of Evaluation: 11:30 - Subjective Subjective: Cardiology Progress Note for Dr. Gustafson Patient seen and examined at bedside. As per nursing, there were no acute overnight events. Patient reports her back and neck are hurting. She denies having any CP, SOB, n/v/d, numbness/tingling. Objective - Vital Signs/Intake and Output Vital Signs (last 24 hours): Temp Pulse Resp BP Pulse Ox 98.6 F 77 18 124/69 96 05/31/16 07:30 05/31/16 10:35 05/31/16 07:30 05/31/16 10:35 05/31/16 07:30 Intake and Output: 05/31/16 05/31/16 06:59 18:59 Intake Total 150 Balance 150 - Medications Medications: Current Medications Alprazolam (Xanax) 1 mg PO Q12 [facility] Last Admin: 05/31/16 10:20 Dose: 1 mg Aspirin (Ecotrin) 325 mg PO DAILY [facility] Last Admin: 05/31/16 10:16 Dose: 325 mg Carvedilol (Coreg) 6.25 mg PO BID [facility] Last Admin: 05/31/16 10:47 Dose: Not Given Clopidogrel Bisulfate (Plavix) 75 mg PO DAILY [facility] Last Admin: 05/31/16 10:20 Dose: 75 mg Escitalopram Oxalate (Lexapro) 5 mg PO DAILY [facility] Last Admin: 05/31/16 10:16 Dose: 5 mg Famotidine (Pepcid) 20 mg PO BID [facility] Last Admin: 05/31/16 10:17 Dose: 20 mg Furosemide (Lasix) 20 mg IVP Q12H [facility] Last Admin: 05/31/16 10:34 Dose: 20 mg Losartan Potassium (Cozaar) 25 mg PO DAILY [facility] Last Admin: 05/31/16 10:47 Dose: Not Given Megestrol Acetate (Megace) 40 mg PO DAILY [facility] Last Admin: 05/31/16 10:17 Dose: 40 mg Montelukast Sodium (Singulair) 10 mg PO HS [facility] Last Admin: 05/30/16 21:30 Dose: 10 mg Oxycodone/Acetaminophen (Percocet 5/325 Mg Tab) 1 tab PO Q8 PRN PRN Reason: pain Stop: 06/01/16 22:01 Last Admin: 05/31/16 10:17 Dose: 1 tab Ranolazine (Ranexa) 500 mg PO BID [facility] Last Admin: 05/31/16 10:20 Dose: 500 mg Rosuvastatin Calcium (Crestor) 10 mg PO HS [facility] Last Admin: 05/30/16 21:30 Dose: 10 mg - Labs Labs: 05/31/16 11:33 05/31/16 11:33 PT 13.5 SECONDS (9.7-12.2) H 05/26/16 05:49 INR 1.2 05/26/16 05:49 APTT 29 SECONDS (21-34) 05/26/16 05:49 - Constitutional Appears: No Acute Distress - Head Exam Head Exam: ATRAUMATIC, NORMAL INSPECTION, NORMOCEPHALIC - Eye Exam Eye Exam: Normal appearance, PERRL Pupil Exam: NORMAL ACCOMODATION, PERRL - ENT Exam ENT Exam: Normal Oropharynx - Respiratory Exam Respiratory Exam: Clear to Ausculation Bilateral, NORMAL BREATHING PATTERN. absent: Rales, Rhonchi, Wheezes, Stridor - Cardiovascular Exam Cardiovascular Exam: REGULAR RHYTHM, +S1, +S2. absent: Gallop, Rubs, Murmur - GI/Abdominal Exam GI & Abdominal Exam: Soft, Normal Bowel Sounds. absent: Rigid, Tenderness, Mass , Rebound - Extremities Exam Extremities Exam: Normal Inspection. absent: Calf Tenderness, Pedal Edema - Neurological Exam Neurological Exam: Alert, Awake, CN II-XII Intact - Skin Skin Exam: Dry, Normal Color, Warm Assessment and Plan - Assessment and Plan (Free Text) Assessment: This is an 81Y F with PMH of HTN, CAD, anxiety, COPD, [place] x 2 s/p drug eluting stent in RCA and diastolic CHF admitted for 1) Paroxysmal A.fib- rate and rhythm controlled 2) CHF exacerbation 3) HTN 4) CAD 5) COPD 6) Anxiety Plan: - Continue ASA 325mg and Plavix - Continue Crestor - Continue Cozaar, Coreg and Lasix - Continue to monitor I&O and daily weights GI ppx: Pepcid DVT ppx: Plavix Case seen, reviewed and discussed with Dr. Sj Clifton PGY1 <Iraida Gustafson - Last Filed: 06/01/16 09:28> Objective - Vital Signs/Intake and Output Vital Signs (last 24 hours): Temp Pulse Resp BP Pulse Ox 97.5 F L 74 20 126/75 100 05/31/16 15:10 05/31/16 15:10 05/31/16 15:10 05/31/16 15:10 05/31/16 15:10 - Labs Labs: 05/31/16 11:33 05/31/16 11:33 PT 13.5 SECONDS (9.7-12.2) H 05/26/16 05:49 INR 1.2 05/26/16 05:49 APTT 29 SECONDS (21-34) 05/26/16 05:49 Attending/Attestation - Attestation I have personally seen and examined this patient.: Yes I have fully participated in the care of the patient.: Yes I have reviewed all pertinent clinical information, including history, physical exam and plan: Yes Notes (Text): 06/01/16 09:27 pt usteady when walking fall risk continuje asa and plavix fpr PAF
[2016-05-31 15:15] VITALS: BP 126/75; PULSE 74; RESP 20; TEMP 97.5; O2SAT 100
--- NOTE | 2016-06-20 10:00 | DS ---
The patient admitted to the hospital with a chief complaint of generalized weakness, fatigue, tiredne ss, shortness of breath. The patient got bedrest, supportive care. Continue treatment. Discharged to follow as outpatient. Gisselle Vogel MD cc: [id number] TT: 06/19/2016 22:28:13 sn
== END 2016-05-31 19:25 | disposition home or self-care (01) | DRG 308 ==
LOC: C.ER 05:15 → C.9E 06:51 → C.6T 11:37
PROVIDERS: ADMIT Internal Medicine Pulmonary Disease; ATTEND Internal Medicine Pulmonary Disease
DX: I48.0 Paroxysmal atrial fibrillation (principal); I50.33 Acute on chronic diastolic (congestive) heart failure; R06.00 Dyspnea, unspecified; J44.9 Chronic obstructive pulmonary disease, unspecified; M06.9 Rheumatoid arthritis, unspecified; I11.0 Hypertensive heart disease with heart failure; I25.10 Atherosclerotic heart disease of native coronary artery without angina pectoris; M81.0 Age-related osteoporosis without current pathological fracture; J45.909 Unspecified asthma, uncomplicated; M17.12 Unilateral primary osteoarthritis, left knee; F41.9 Anxiety disorder, unspecified; Z95.5 Presence of coronary angioplasty implant and graft; Z90.49 Acquired absence of other specified parts of digestive tract; I25.2 Old myocardial infarction; Z90.710 Acquired absence of both cervix and uterus; Z87.891 Personal history of nicotine dependence

== ENCOUNTER 2016-06-19 09:48 | Inpatient (IN) | payer MEDICARE, MEDICAID ==
[2016-06-19 09:48] VITALS: BMI 18.1
[2016-06-19 10:11] LABS: ABG ALLEN TEST POS; ABG MECHANICAL RATE 12; ATERIAL BLOOD GAS PEEP 5; DRAW SITE RR
[2016-06-19 10:23] LABS: BASO # 0.1 K/uL (0.0-0.2); BASO % 1.2 % (0.0-2.0); EOS # 0.3 K/uL (0.0-0.7); EOS % 2.3 % (0.0-4.0); HEMATOCRIT 29.6 % (34.0-47.0); LYMPH % 18.2 % (20.0-40.0); MEAN CELL VOLUME 72.8 fL (81.0-99.0); MEAN CORPUSCULAR HEMOGLOBIN 22.9 pg (27.0-31.0); MEAN CORPUSCULAR HGB CONC 31.4 g/dL (33.0-37.0); MEAN PLATELET VOLUME 10.3 fL (7.2-11.7); MONO # 1.1 K/uL (0.0-0.8); MONO % 10.2 % (0.0-10.0); NRBC % 0.1 % (0.0-2.0); RED CELL DISTRIBUTION WIDTH 16.2 % (11.5-14.5); WHITE BLOOD COUNT 11.2 K/uL (4.8-10.8)
--- NOTE | 2016-06-19 10:25 | C.PDOC ---
History Of Present Illness Patient BIBA for respiratory distress, intubated in the field for respiratory failure. Patient apparently developed sudden onset of acute SOB as per family member at the scene. Patient given 3SL nitros, IV lasix 20mg prior to intubation. Intubation meds- Etomidate, Versed, Rocuronium. As per EMS, patient has h/o CHF, HTN (based on medications). Time Seen by Provider: 06/19/16 10:11 Chief Complaint (Nursing): Respiratory Distress History Per: EMS History/Exam Limitations: clinical condition Onset/Duration Of Symptoms: Unknown Current Respiratory Medications: See Home Med List Past Medical History Reviewed: Historical Data, Nursing Documentation, Vital Signs Vital Signs: Last Vital Signs Temp 98 F 06/24/16 00:00 Pulse 77 06/24/16 07:34 Resp 24 06/24/16 07:00 BP 138/87 06/24/16 06:59 Pulse Ox 100 06/24/16 07:00 - Medical History PMH: Anxiety, Arthritis, Asthma, CHF, COPD, Dementia, Diabetes, Gall Bladder Disease, HTN, Osteoporosis, Pneumonia (08/2015), Rheumatoid Arthritis Surgical History: Cholecystectomy, Coronary Stent (proximal RCA stent, 2 weeks ago) - [facility] Procedures ASSISTANCE WITH RESPIRATORY VENTILATION, <24 HRS, CPAP (01/17/16) ASSISTANCE WITH RESPIRATORY VENTILATION, >96 HRS, CPAP (02/28/16) CONTINUOUS INVASIVE MECHANICAL VENTILATION <96 CONSEC HRS (08/07/12) DILATION OF 1 COR ART WITH DRUG-ELUT INTRA, PERC APPROACH (12/29/15) INJECT/INFUSE NEC (02/11/14) LAPAROSCOPIC CHOLECYSTECTOMY (08/07/12) NEBULIZER THERAPY (09/10/13) OXYGEN ENRICHMENT NEC (08/07/12) VITAL CAPACITY DETERMIN (08/07/12) Family History: States: Other (noncontributory) - Social History Hx Tobacco Use: No Hx Alcohol Use: No Hx Substance Use: No - Immunization History Hx Tetanus Toxoid Vaccination: No Hx Influenza Vaccination: No Hx Pneumococcal Vaccination: No Review Of Systems Review Of Systems: ROS cannot be obtained secondary to pt's inabilty to answer questions. Physical Exam - Physical Exam Appears: Non-toxic, Other (intubated, assisted ventilations) Skin: Warm, Dry Head: Normacephalic Eye(s): bilateral: Other (1-2 mm B/L) Oral Mucosa: Moist, Other (ET tube in place, 6mm) Cardiovascular: Rhythm Irregular (tachycardic ) Respiratory: Rales (B/L), Other (assisted ventilations) Gastrointestinal/Abdominal: Normal Exam, Bowel Sounds, Soft, No Tenderness Extremity: Normal ROM, No Pedal Edema, No Calf Tenderness Pulses: Left Radial: Normal, Right Radial: Normal, Left Dorsalis Pedis: Normal, Right Dorsalis Pedis: Normal ED Course And Treatment - Laboratory Results Result Diagrams: 06/24/16 06:28 06/24/16 06:26 ECG: Interpreted By Me, Viewed By Me (sinus tachycardia 101bpm, PACs, left axis deviation, QRS widening, Q waves II, III, AVF, no acute ST changes) ECG Interpretation: Abnormal O2 Sat by Pulse Oximetry: 100 (100% FiO2) Pulse Ox Interpretation: Normal - Radiology CXR: Interpreted by Me, Viewed By Me (B/L pulmonary vascular congestion, ET tube in place, OG tube in esophagus (will reposition)) Progress Note: Blood work, CXR, EKG, ABG ordered and reviewed. Patient given KCL IV, IV propofol drip ordered for intubation sedation. Discussed patient with sales technician Dr. Louie, agrees with ICU admission for respiratory failure, CHF exacerbation. - Physician Consult Information Physician Contacted: Gisselle Jay Outcome Of Conversation: Discussed patient with Dr. Jay, he is aware patient being admitted to ICU for respiratory failure/CHF. Critical Care Time - Critical Care Note Total Time (in mins): 40 Documented critical care: time excludes all time spent performing seperately billable procedures. Disposition - Disposition Disposition: HOSPITALIZED Disposition Time: 11:08 Condition: CRITICAL - Clinical Impression Clinical Impression: Congestive heart failure, Respiratory failure Decision To Admit - Pt Status Changed To: Hospital Disposition Of: Inpatient - Admit Certification Admit to Inpatient:: After my assessment, the patient will require hospitalization for at least two midnights. This is because of the severity of symptoms shown, intensity of services needed, and/or the medical risk in this patient being treated as an outpatient. - InPatient: Physician Admission Certification: I certify that this patient requires 2 or more midnights of care for the following reason:: see notes - . Bed Request Type: ICU Admitting Physician: Gisselle Jay Patient Diagnosis: Congestive heart failure, Respiratory failure
[2016-06-19 10:28] LABS: INR 1.3
[2016-06-19 10:36] LABS: RBC URINE 4 /hpf (0-3); URINE BACTERIA FEW (<OCC); URINE BILIRUBIN NEGATIVE (NEGATIVE); URINE BLOOD 1+ (NEGATIVE); URINE COLOR Yellow (YELLOW); URINE GLUCOSE (UA) NORMAL (Normal); URINE KETONE NEGATIVE (NEGATIVE); URINE LEUKOCYTE ESTERASE NEG Leu/uL (Negative); URINE PROTEIN 2+ mg/dL (NEGATIVE); URINE UROBILINOGEN NORMAL mg/dL (0.2-1.0); WBC URINE 1 /hpf (0-5)
[2016-06-19 10:37] LABS: URINE HYALINE CAST 0-2 /lpf (0-2)
[2016-06-19 10:50] LABS: CHLORIDE 103 mmol/L (98-107)
[2016-06-19 10:51] LABS: POTASSIUM 3.1 mmol/L (3.6-5.2); SODIUM 142 mmol/L (132-148)
[2016-06-19 10:53] LABS: ALB/GLOB RATIO 1.1 (1.0-2.1); ALKALINE PHOSPHATASE 82 U/L (38-126); ALT/SGPT 17 U/L (9-52); AST/SGOT 30 U/L (14-36); BLOOD UREA NITROGEN 16 mg/dL (7-17); CARBON DIOXIDE 20 mmol/L (22-30); GFR AFRICAN-AMERICAN > 60; GLUCOSE,RANDOM 196 mg/dL (65-105); TOTAL PROTEIN 7.9 g/dL (6.3-8.3)
[2016-06-19 10:54] LABS: CALCIUM 8.7 mg/dl (8.6-10.4)
[2016-06-19] MEDS ORDERED: Potassium Chloride 20 mEq 100 ML IVPB ONE ×3 (11:05→11:59)
--- NOTE | 2016-06-19 13:01 | RAD ---
PROCEDURE: CHEST RADIOGRAPH, 1 VIEW HISTORY: SOB COMPARISON: 05/27/2016 FINDINGS: LUNGS: ETT tip lies approximately 3.0 cm above maddy Diffuse bilateral infiltrates; rule out pneumonia versus of pulmonary edema/CHF PLEURA: No pneumothorax or pleural fluid seen. CARDIOVASCULAR: Heart is enlarged. OSSEOUS STRUCTURES: No significant abnormalities. VISUALIZED UPPER ABDOMEN: Normal. OTHER FINDINGS: None. IMPRESSION: In situ ETT in good position. Diffuse bilateral infiltrates; rule out pneumonia versus of pulmonary edema/CHF
--- NOTE | 2016-06-19 13:14 | CP.PCM.CON ---
History of Present Illness - History of Present Illness History of Present Illness: 81-year-old female with history of hypertension CAD anxiety COPD history of heart failure brought in emergency room with the acute shortness of breath. Patient was intubated in the field. Patient was in severe respiratory distress. Patient had a multiple hospitalization with a similar condition. Patient admitted to intensive care unit with the worsening symptoms. Patient is currently on ventilator, family is at bedside, spoke to the family in details. PMH: HTN, CAD, Anxiety, COPD, [place] x 2, CHF PSH: Drug eluting stent in RCA (Dec 2015), cholecystectomy (2014), Hysterectomy , Vocal cord surgery Home meds: ASA, Coreg, Lasix, Plavix, lipitor, Cozaar, Xanax, Percocet, Ranexa, Megace, Lexapro All: Moxifloxacin (rash and swelling) SH: Heavy former smoked (quit 1yr ago), denies EtOH and drug use, lives with family FH: Non-contributory Review of Systems - Review of Systems All systems: reviewed and no additional remarkable complaints except Review of Systems: currently on ventilator. Responding, awake sedated. No chest pain. No nausea vomiting. Past Patient History - Infectious Disease Hx of Infectious Diseases: None - Tetanus Immunizations Tetanus Immunization: Unknown - Past Medical History & Family History Past Medical History?: Yes - Past Social History Smoking Status: Never Smoked - CARDIAC Hx Congestive Heart Failure: Yes Hx Hypertension: Yes - PULMONARY Hx Asthma: Yes Hx Chronic Obstructive Pulmonary Disease (COPD): Yes Hx Pneumonia: Yes (08/2015) - NEUROLOGICAL Hx Dementia: Yes - HEENT Hx HEENT Problems: No - RENAL Hx Chronic Kidney Disease: No Hx Kidney Stones: No - ENDOCRINE/METABOLIC Hx Diabetes Mellitus Type 2: Yes Hx Hyperthyroidism: No Hx Hypothyroidism: No - HEMATOLOGICAL/ONCOLOGICAL Hx Anemia: No Hx Human Immunodeficiency Virus (HIV): No Hx Sickle Cell Disease: No - INTEGUMENTARY Hx Dermatological Problems: No - MUSCULOSKELETAL/RHEUMATOLOGICAL Hx Arthritis: Yes Hx Osteoporosis: Yes Hx Rheumatoid Arthritis: Yes - GASTROINTESTINAL Hx Gall Bladder Disease: Yes - GENITOURINARY/GYNECOLOGICAL Hx Sexually Transmitted Disorders: No - PSYCHIATRIC Hx Anxiety: Yes Hx Substance Use: No - SURGICAL HISTORY Hx Cholecystectomy: Yes Hx Coronary Stent: Yes (proximal RCA stent, 2 weeks ago) - ANESTHESIA Hx Anesthesia: Yes Hx Anesthesia Reactions: No Hx Malignant Hyperthermia: No Meds Allergies/Adverse Reactions: Allergies Allergy/AdvReac Type Severity Reaction Status Date / Time moxifloxacin HCl Allergy Severe ANAPHYLAXIS Verified 07/12/16 12:48 [From Avelox] - Medications Medications: Current Medications Albuterol/Ipratropium (Duoneb 3 Mg/0.5 Mg (3 Ml) Ud) 3 ml INH RQ6 [facility] Aspirin (Aspirin) 325 mg PO DAILY [facility] Carvedilol (Coreg) 6.25 mg PO BID [facility] Clopidogrel Bisulfate (Plavix) 75 mg PO DAILY [facility] Escitalopram Oxalate (Lexapro) 5 mg PO DAILY [facility] Furosemide (Lasix) 40 mg IVP Q12 [facility] Home Med (Atorvastatin [Lipitor]) 20 mg PO HS [facility] Propofol (Diprivan) 100 mls @ 1.361 mls/hr IV .Q24H [facility]; 5 MCG/KG/MIN PRN Reason: Protocol Stop: 06/20/16 10:54 Last Titration: 06/19/16 12:25 Dose: 10 mcg/kg/min Losartan Potassium (Cozaar) 25 mg PO DAILY [facility] Montelukast Sodium (Singulair) 10 mg PO HS [facility] Pantoprazole Sodium (Protonix Ec Tab) 40 mg PO DAILY [facility] Ranolazine (Ranexa) 500 mg PO BID [facility] Physical Exam - Head Exam Head Exam: ATRAUMATIC Additional comments: Vital signs reviewed No neck vein distention noted Chest good air entry bilaterally, no wheezing or rales noted CVS regular heart sound, no murmur noted Abdomen soft, nontender. Extremities no pedal edema sedated intubated Results - Vital Signs Recent Vital Signs: Last Vital Signs Temp 99.1 F 06/19/16 09:49 Pulse 107 H 06/19/16 12:23 Resp 16 06/19/16 12:23 BP 181/110 H 06/19/16 12:23 Pulse Ox 100 06/19/16 12:23 - Labs Result Diagrams: 06/24/16 06:28 06/24/16 06:26 Assessment & Plan (1) CHF (congestive heart failure) Assessment and Plan: With acute respiratory failure secondary to heart failure. Currently on ventilator. Continue the current treatment. Sedation, broncho-dilators. Lasix. Close monitoring, ventilator management. Weaning as tolerated Status: Acute (2) Acute respiratory failure with hypoxia Status: Acute
--- NOTE | 2016-06-19 13:37 | RAD ---
PROCEDURE: CHEST RADIOGRAPH, 1 VIEW HISTORY: og tube inserted, confirm placement COMPARISON: Comparison made with prior radiographs 06/19/2016 at 1014 hours FINDINGS: LUNGS: In situ ETT, tip of which lies approximately 3.2 cm above maddy in situ NGT, the tip of which is coiled upon itself within the stomach the and extends back into the esophagus terminating in the mid to lower esophagus. This needs to be readjusted. Note that emergency room physician Dr. Clrake's tracking note acknowledges abnormally positioned and will reposition. Interval increased diffuse bilateral infiltrates likely representing pulmonary edema/CHF PLEURA: Questionable left-sided effusion No pneumothorax or pleural fluid seen. CARDIOVASCULAR: Cardiomegaly OSSEOUS STRUCTURES: No significant abnormalities. VISUALIZED UPPER ABDOMEN: Normal. OTHER FINDINGS: None. IMPRESSION: In situ ETT, tip of which lies approximately 3.2 cm above maddy in situ NGT, the tip of which is coiled upon itself within the stomach the and extends back into the esophagus terminating in the mid to lower esophagus. This needs to be readjusted. Note that emergency room physician Dr. Clarke's tracking note acknowledges abnormally positioned and will reposition. Interval increased diffuse bilateral infiltrates likely representing pulmonary edema/CHF
[2016-06-19] MEDS: Ranolazine 500 mg Extended Release Tablets PO SCH (17:13)
--- NOTE | 2016-06-19 23:27 | CARD ---
APPROVED REPORT EKG Measurement Heart [id number] <Conclusion> Sinus tachycardia with premature atrial complexes Left axis deviation Left ventricular hypertrophy with QRS widening and repolarization abnormality Inferior infarct, age undetermined Abnormal ECG
[2016-06-20] MEDS: Albuterol-Ipratrop 3 mg / 0.5 (3 ml) UD INH SCH ×4 (01:16→19:10)
[2016-06-20 04:31] LABS: ABG MECHANICAL RATE 16; ATERIAL BLOOD GAS PEEP 5; DRAW SITE RB; HHB 1.1 % (0.0-5.0); METHEMOGLOBIN 0.9 % (0.0-3.0)
[2016-06-20 06:40] LABS: BASO # 0.1 K/uL (0.0-0.2); EOS # 0.1 K/uL (0.0-0.7); EOS % 1.2 % (0.0-4.0); HEMATOCRIT 29.9 % (34.0-47.0); LYMPH # 1.4 K/uL (1.0-4.3); LYMPH % 13.8 % (20.0-40.0); MEAN CELL VOLUME 71.7 fL (81.0-99.0); MEAN CORPUSCULAR HGB CONC 32.1 g/dL (33.0-37.0); MEAN PLATELET VOLUME 10.7 fL (7.2-11.7); MONO % 9.9 % (0.0-10.0); NRBC % 0.1 % (0.0-2.0); RED CELL DISTRIBUTION WIDTH 16.1 % (11.5-14.5); WHITE BLOOD COUNT 9.9 K/uL (4.8-10.8)
[2016-06-20 06:52] LABS: CHLORIDE 101 mmol/L (98-107); POTASSIUM 3.3 mmol/L (3.6-5.2); SODIUM 143 mmol/L (132-148)
[2016-06-20 06:54] LABS: BILIRUBIN,TOTAL 1.5 mg/dL (0.2-1.3); GFR AFRICAN-AMERICAN > 60
[2016-06-20 06:55] LABS: ALB/GLOB RATIO 1.1 (1.0-2.1); ALKALINE PHOSPHATASE 96 U/L (38-126); ALT/SGPT 8 U/L (9-52); AST/SGOT 21 U/L (14-36); BLOOD UREA NITROGEN 17 mg/dL (7-17); CARBON DIOXIDE 24 mmol/L (22-30); GLUCOSE,RANDOM 94 mg/dL (65-105); PHOSPHOROUS 4.4 mg/dL (2.5-4.5); TOTAL PROTEIN 7.9 g/dL (6.3-8.3)
[2016-06-20 06:56] LABS: CALCIUM 9.3 mg/dl (8.6-10.4); MAGNESIUM 1.6 mg/dL (1.6-2.3)
[2016-06-20] MEDS ORDERED: Potassium Chloride 10 mEq 100 ML IVPB ONE (07:55)
[2016-06-20] MEDS: Potassium Chloride 20 mEq/15 ml LIQ UD PO SCH ×2 (08:11→17:38)
--- NOTE | 2016-06-20 08:22 | RAD ---
HISTORY: Endotracheal tube placement COMPARISON: 06/19/2016 FINDINGS: LUNGS: Lines and tubes in stable position. Biapical pleural thickening with upper lobe granulomatous changes. Mild venous congestion. Mild patchy increased markings at both lung bases. Left hilar prominence. Small nodular density seen at the medial aspect of the left lung base. PLEURA: No significant pleural effusion identified, no pneumothorax apparent. CARDIOVASCULAR: Normal. OSSEOUS STRUCTURES: No significant abnormalities. VISUALIZED UPPER ABDOMEN: Normal. OTHER FINDINGS: None. IMPRESSION: Lines and tubes in stable position. Biapical pleural thickening with upper lobe granulomatous changes. Mild venous congestion. Mild patchy increased markings at both lung bases. Left hilar prominence. Small nodular density seen at the medial aspect of the left lung base.
[2016-06-20] MEDS: Ranolazine 500 mg Extended Release Tablets PO SCH ×2 (09:17→18:00)
[2016-06-20] MEDS: Oxycodone/Acetaminophen 5/325 mg Tab PO PRN (09:19)
--- NOTE | 2016-06-20 09:27 | HP ---
An 81-year-old female with history of coronary artery disease, congestive heart failure. Admitted to hospital with chief complaint of weakness, fatigue, tiredness, shortness of breath. The patie nt found to have pulmonary edema. The patient is sedated, placed on mechanical ventilator. The hanane ent got extubated. PHYSICAL EXAMINATION: VITAL SIGNS: Pulse rate 100, blood pressure 120/70. HEENT: Within normal limits. NECK: Supple. CHEST: Symmetrical. HEART: Regular. ABDOMEN: Soft. EXTREMITIES: No edema. The patient suffers from pulmonary edema. The patient getting supportive care, diuresis, cardiology evaluation. Gisselle Vogel MD cc: [id number] TT: 06/19/2016 15:09:18 en
[2016-06-20] MEDS ORDERED: Losartan 12.5 MG TAB PO ONE (10:00)
--- NOTE | 2016-06-20 12:43 | CP.CCUPN ---
CCU Subjective - Physician Review Subjective (Free Text): 06/20/16 12:32 Pt seen and examined at bedside. Pt following verbal commands, and gesturing in a manner to ask to remove ETT. Pt tolerated CPAP trial this AM, and was extubated. Pt only c/o of throat irritation post-extubation. Current O2 sat is 98% on 3L O2. Will trial small amount of liquids later today. Pt is able to deny chest pain, palpitations, SOB on nasal cannula, abdominal pain, N/V/D/C. Critical Care Time Spent (in minutes): 45 CCU Objective - Vital Signs / Intake & Output Vital Signs (Last 4 hours): Vital Signs Pulse Resp BP Pulse Ox 06/20/16 11:00 89 18 99/57 L 99 06/20/16 10:00 88 16 148/76 99 06/20/16 09:16 150/70 06/20/16 09:00 89 15 157/78 H 98 Intake and Output (Last 8hrs): Intake & Output 06/19/16 06/20/16 06/20/16 22:59 06:59 14:59 Intake Total 113.1 8.2 100 Output Total 620 1225 40 Balance -506.9 -1216.8 60 Weight 100 lb Intake: Intake, IV Amount 33.1 8.2 Right Forearm 2.7 Right Wrist 30.4 8.2 Left Forearm 0 Oral 0 0 Tube Feeding 80 Other 100 Output: Urine 620 1225 40 Urethral (Hernandez) 620 1225 40 - Physical Exam Head: Positive for: Atraumatic, Normocephalic Pupils: Positive for: PERRL Extroacular Muscles: Positive for: EOMI Conjunctiva: Positive for: Normal Mouth: Positive for: Moist Mucous Membranes Respiratory/Chest: Positive for: Accessory Muscle Use. Negative for: Respiratory Distress Cardiovascular: Positive for: Regular Rate and Rhythm, Normal S1, S2 Abdomen: Positive for: Normal Bowel Sounds. Negative for: Tenderness, Distention Upper Extremity: Positive for: Normal Inspection Lower Extremity: Positive for: Normal Inspection Neurological: Positive for: Speech Normal Skin: Positive for: Warm, Dry Psychiatric: Positive for: Alert, Oriented x 3 - Medications Active Medications: Active Medications Generic Name Dose Route Start Last Admin Trade Name Freq PRN Reason Stop Dose Admin Albuterol/Ipratropium 3 ml 06/19/16 14:00 06/20/16 07:35 Duoneb 3 Mg/0.5 Mg (3 Ml) Ud INH 3 ml RQ6 BLAKE Administration Alprazolam 1 mg 06/20/16 10:00 06/20/16 10:27 Xanax PO 1 mg BID PRN Administration Anxiety Aspirin 325 mg 06/20/16 10:00 06/20/16 09:19 Aspirin PO 325 mg DAILY BLAKE Administration Carvedilol 6.25 mg 06/19/16 18:00 06/20/16 09:17 Coreg PO 6.25 mg BID BLAKE Administration Clopidogrel Bisulfate 75 mg 06/20/16 10:00 06/20/16 09:21 Plavix PO 75 mg DAILY BLAKE Administration Escitalopram Oxalate 5 mg 06/20/16 10:00 06/20/16 09:17 Lexapro PO 5 mg DAILY BLAKE Administration Famotidine 20 mg 06/19/16 18:00 06/20/16 09:17 Pepcid PO 20 mg DAILY BLAKE Administration Furosemide 40 mg 06/19/16 22:00 06/20/16 09:16 Lasix IVP 40 mg Q12 BLAKE Administration Heparin Sodium (Porcine) 5,000 units 06/20/16 10:00 06/20/16 10:29 Heparin SC 5,000 units Q12 BLAKE Administration Losartan Potassium 50 mg 06/21/16 10:00 Cozaar PO DAILY [facility] Montelukast Sodium 10 mg 06/19/16 22:00 06/19/16 21:33 Singulair PO 10 mg HS BLAKE Administration Oxycodone/Acetaminophen 1 tab 06/19/16 21:36 06/20/16 09:19 Percocet 5/325 Mg Tab PO 06/22/16 21:37 1 tab Q4H PRN Administration generalized pain Ranolazine 500 mg 06/19/16 18:00 06/20/16 09:17 Ranexa PO 500 mg BID BLAKE Administration Rosuvastatin Calcium 10 mg 06/19/16 22:00 06/19/16 21:33 Crestor PO 10 mg HS BLAKE Administration - Patient Studies Lab Studies: Lab Studies 06/20/16 06/20/16 06/20/16 Range/Units 11:55 06:33 04:35 WBC 9.9 (4.8-10.8) K/uL RBC 4.17 (3.80-5.20) Mil/uL Hgb 9.6 L (11.0-16.0) g/dL Hct 29.9 L (34.0-47.0) % MCV 71.7 L (81.0-99.0) fL MCH 23.0 L (27.0-31.0) pg MCHC 32.1 L (33.0-37.0) g/dL RDW 16.1 H (11.5-14.5) % Plt Count 306 (130-400) K/uL MPV 10.7 (7.2-11.7) fL Neut % (Auto) 74.1 (50.0-75.0) % Lymph % (Auto) 13.8 L (20.0-40.0) % Louisa % (Auto) 9.9 (0.0-10.0) % Eos % (Auto) 1.2 (0.0-4.0) % Baso % (Auto) 1.0 (0.0-2.0) % Neut # 7.3 H (1.8-7.0) K/uL Lymph # 1.4 (1.0-4.3) K/uL Louisa # 1.0 H (0.0-0.8) K/uL Eos # 0.1 (0.0-0.7) K/uL Baso # 0.1 (0.0-0.2) K/uL Puncture Site pCO2 (35-45) mm/Hg pO2 (80-100) mm/Hg HCO3 (21-28) mmol/L ABG pH (7.35-7.45) ABG Total CO2 (22-28) mmol/L ABG O2 Saturation (95-98) % ABG Base Excess (-2.0-3.0) mmol/L ABG Hemoglobin (11.7-17.4) g/dL ABG Carboxyhemoglobin (0.5-1.5) % POC ABG HHb (Measured) (0.0-5.0) % ABG Methemoglobin (0.0-3.0) % Gael Test A-a O2 Difference mm/Hg Respiratory Index Hgb O2 Saturation (95.0-98.0) % Mechanical Rate FiO2 % Tidal Volume PEEP Sodium 143 (132-148) mmol/L Potassium 3.3 L (3.6-5.2) mmol/L Chloride 101 (98-107) mmol/L Carbon Dioxide 24 (22-30) mmol/L Anion Gap 21 H (10-20) BUN 17 (7-17) mg/dL Creatinine 0.9 (0.7-1.2) MG/DL Est GFR ( Amer) > 60 Est GFR (Non-Af Amer) 60 POC Glucose (mg/dL) 117 H 104 (65-110) mg/dL Random Glucose 94 (65-105) mg/dL Calcium 9.3 (8.6-10.4) mg/dl Phosphorus 4.4 (2.5-4.5) mg/dL Magnesium 1.6 (1.6-2.3) mg/dL Total Bilirubin 1.5 H (0.2-1.3) mg/dL AST 21 (14-36) U/L ALT 8 L D (9-52) U/L Alkaline Phosphatase 96 (38-126) U/L Total Creatine Kinase (30-135) U/L CK-MB (Mass) (0.0-3.38) ng/mL Troponin I, Quant (0.00-0.120) ng/mL Total Protein 7.9 (6.3-8.3) g/dL Albumin 4.2 (3.5-5.0) g/dL Globulin 3.7 (2.2-3.9) gm/dL Albumin/Globulin Ratio 1.1 (1.0-2.1) 06/20/16 06/20/16 06/20/16 Range/Units 04:10 01:41 00:00 WBC (4.8-10.8) K/uL RBC (3.80-5.20) Mil/uL Hgb (11.0-16.0) g/dL Hct (34.0-47.0) % MCV (81.0-99.0) fL MCH (27.0-31.0) pg MCHC (33.0-37.0) g/dL RDW (11.5-14.5) % Plt Count (130-400) K/uL MPV (7.2-11.7) fL Neut % (Auto) (50.0-75.0) % Lymph % (Auto) (20.0-40.0) % Louisa % (Auto) (0.0-10.0) % Eos % (Auto) (0.0-4.0) % Baso % (Auto) (0.0-2.0) % Neut # (1.8-7.0) K/uL Lymph # (1.0-4.3) K/uL Louisa # (0.0-0.8) K/uL Eos # (0.0-0.7) K/uL Baso # (0.0-0.2) K/uL Puncture Site Rb pCO2 27 L (35-45) mm/Hg pO2 244 H (80-100) mm/Hg HCO3 28.6 H (21-28) mmol/L ABG pH 7.59 H (7.35-7.45) ABG Total CO2 26.7 (22-28) mmol/L ABG O2 Saturation 98.9 H (95-98) % ABG Base Excess 4.7 H (-2.0-3.0) mmol/L ABG Hemoglobin 10.8 L (11.7-17.4) g/dL ABG Carboxyhemoglobin 1.0 (0.5-1.5) % POC ABG HHb (Measured) 1.1 (0.0-5.0) % ABG Methemoglobin 0.9 (0.0-3.0) % Gael Test Na A-a O2 Difference 150.0 mm/Hg Respiratory Index 0.6 Hgb O2 Saturation 97.0 (95.0-98.0) % Mechanical Rate 16 FiO2 60.0 % Tidal Volume 450 PEEP 5 Sodium (132-148) mmol/L Potassium (3.6-5.2) mmol/L Chloride (98-107) mmol/L Carbon Dioxide (22-30) mmol/L Anion Gap (10-20) BUN (7-17) mg/dL Creatinine (0.7-1.2) MG/DL Est GFR ( Amer) Est GFR (Non-Af Amer) POC Glucose (mg/dL) 91 (65-110) mg/dL Random Glucose (65-105) mg/dL Calcium (8.6-10.4) mg/dl Phosphorus (2.5-4.5) mg/dL Magnesium (1.6-2.3) mg/dL Total Bilirubin (0.2-1.3) mg/dL AST (14-36) U/L ALT (9-52) U/L Alkaline Phosphatase (38-126) U/L Total Creatine Kinase 31 (30-135) U/L CK-MB (Mass) 0.79 (0.0-3.38) ng/mL Troponin I, Quant 0.0420 (0.00-0.120) ng/mL Total Protein (6.3-8.3) g/dL Albumin (3.5-5.0) g/dL Globulin (2.2-3.9) gm/dL Albumin/Globulin Ratio (1.0-2.1) 06/19/16 06/19/16 Range/Units 18:06 17:39 WBC (4.8-10.8) K/uL RBC (3.80-5.20) Mil/uL Hgb (11.0-16.0) g/dL Hct (34.0-47.0) % MCV (81.0-99.0) fL MCH (27.0-31.0) pg MCHC (33.0-37.0) g/dL RDW (11.5-14.5) % Plt Count (130-400) K/uL MPV (7.2-11.7) fL Neut % (Auto) (50.0-75.0) % Lymph % (Auto) (20.0-40.0) % Louisa % (Auto) (0.0-10.0) % Eos % (Auto) (0.0-4.0) % Baso % (Auto) (0.0-2.0) % Neut # (1.8-7.0) K/uL Lymph # (1.0-4.3) K/uL Louisa # (0.0-0.8) K/uL Eos # (0.0-0.7) K/uL Baso # (0.0-0.2) K/uL Puncture Site pCO2 (35-45) mm/Hg pO2 (80-100) mm/Hg HCO3 (21-28) mmol/L ABG pH (7.35-7.45) ABG Total CO2 (22-28) mmol/L ABG O2 Saturation (95-98) % ABG Base Excess (-2.0-3.0) mmol/L ABG Hemoglobin (11.7-17.4) g/dL ABG Carboxyhemoglobin (0.5-1.5) % POC ABG HHb (Measured) (0.0-5.0) % ABG Methemoglobin (0.0-3.0) % Gael Test A-a O2 Difference mm/Hg Respiratory Index Hgb O2 Saturation (95.0-98.0) % Mechanical Rate FiO2 % Tidal Volume PEEP Sodium 141 (132-148) mmol/L Potassium 4.0 (3.6-5.2) mmol/L Chloride 104 (98-107) mmol/L Carbon Dioxide 20 L (22-30) mmol/L Anion Gap (10-20) BUN (7-17) mg/dL Creatinine (0.7-1.2) MG/DL Est GFR ( Amer) Est GFR (Non-Af Amer) POC Glucose (mg/dL) 85 (65-110) mg/dL Random Glucose (65-105) mg/dL Calcium (8.6-10.4) mg/dl Phosphorus (2.5-4.5) mg/dL Magnesium (1.6-2.3) mg/dL Total Bilirubin (0.2-1.3) mg/dL AST (14-36) U/L ALT (9-52) U/L Alkaline Phosphatase (38-126) U/L Total Creatine Kinase 42 (30-135) U/L CK-MB (Mass) 1.25 (0.0-3.38) ng/mL Troponin I, Quant 0.0420 (0.00-0.120) ng/mL Total Protein (6.3-8.3) g/dL Albumin (3.5-5.0) g/dL Globulin (2.2-3.9) gm/dL Albumin/Globulin Ratio (1.0-2.1) Laboratory Results - last 24 hr 06/19/16 06/19/16 06/20/16 17:39 18:06 00:00 WBC RBC Hgb Hct MCV MCH MCHC RDW Plt Count MPV Neut % (Auto) Lymph % (Auto) Louisa % (Auto) Eos % (Auto) Baso % (Auto) Neut # Lymph # Louisa # Eos # Baso # Puncture Site pCO2 pO2 HCO3 ABG pH ABG Total CO2 ABG O2 Saturation ABG Base Excess ABG Hemoglobin ABG Carboxyhemoglobin POC ABG HHb (Measured) ABG Methemoglobin Gael Test A-a O2 Difference Respiratory Index Hgb O2 Saturation Mechanical Rate FiO2 Tidal Volume PEEP Sodium 141 Potassium 4.0 Chloride 104 Carbon Dioxide 20 L Anion Gap BUN Creatinine Est GFR ( Amer) Est GFR (Non-Af Amer) POC Glucose (mg/dL) 85 91 Random Glucose Calcium Phosphorus Magnesium Total Bilirubin AST ALT Alkaline Phosphatase Total Creatine Kinase 42 CK-MB (Mass) 1.25 Troponin I, Quant 0.0420 Total Protein Albumin Globulin Albumin/Globulin Ratio 06/20/16 06/20/16 06/20/16 01:41 04:10 04:35 WBC RBC Hgb Hct MCV MCH MCHC RDW Plt Count MPV Neut % (Auto) Lymph % (Auto) Louisa % (Auto) Eos % (Auto) Baso % (Auto) Neut # Lymph # Louisa # Eos # Baso # Puncture Site Rb pCO2 27 L pO2 244 H HCO3 28.6 H ABG pH 7.59 H ABG Total CO2 26.7 ABG O2 Saturation 98.9 H ABG Base Excess 4.7 H ABG Hemoglobin 10.8 L ABG Carboxyhemoglobin 1.0 POC ABG HHb (Measured) 1.1 ABG Methemoglobin 0.9 Gael Test Na A-a O2 Difference 150.0 Respiratory Index 0.6 Hgb O2 Saturation 97.0 Mechanical Rate 16 FiO2 60.0 Tidal Volume 450 PEEP 5 Sodium Potassium Chloride Carbon Dioxide Anion Gap BUN Creatinine Est GFR ( Amer) Est GFR (Non-Af Amer) POC Glucose (mg/dL) 104 Random Glucose Calcium Phosphorus Magnesium Total Bilirubin AST ALT Alkaline Phosphatase Total Creatine Kinase 31 CK-MB (Mass) 0.79 Troponin I, Quant 0.0420 Total Protein Albumin Globulin Albumin/Globulin Ratio 06/20/16 06/20/16 06:33 11:55 WBC 9.9 RBC 4.17 Hgb 9.6 L Hct 29.9 L MCV 71.7 L MCH 23.0 L MCHC 32.1 L RDW 16.1 H Plt Count 306 MPV 10.7 Neut % (Auto) 74.1 Lymph % (Auto) 13.8 L Louisa % (Auto) 9.9 Eos % (Auto) 1.2 Baso % (Auto) 1.0 Neut # 7.3 H Lymph # 1.4 Louisa # 1.0 H Eos # 0.1 Baso # 0.1 Puncture Site pCO2 pO2 HCO3 ABG pH ABG Total CO2 ABG O2 Saturation ABG Base Excess ABG Hemoglobin ABG Carboxyhemoglobin POC ABG HHb (Measured) ABG Methemoglobin Gael Test A-a O2 Difference Respiratory Index Hgb O2 Saturation Mechanical Rate FiO2 Tidal Volume PEEP Sodium 143 Potassium 3.3 L Chloride 101 Carbon Dioxide 24 Anion Gap 21 H BUN 17 Creatinine 0.9 Est GFR ( Amer) > 60 Est GFR (Non-Af Amer) 60 POC Glucose (mg/dL) 117 H Random Glucose 94 Calcium 9.3 Phosphorus 4.4 Magnesium 1.6 Total Bilirubin 1.5 H AST 21 ALT 8 L D Alkaline Phosphatase 96 Total Creatine Kinase CK-MB (Mass) Troponin I, Quant Total Protein 7.9 Albumin 4.2 Globulin 3.7 Albumin/Globulin Ratio 1.1 Fingerstick Blood Sugar Results: 104 Review of Systems - Constitutional Constitutional: absent: Fever, Chills - EENT Eyes: absent: Change in Vision Ears: absent: Decreased Hearing Nose/Mouth/Throat: Sore Throat (s/p extubation). absent: Nasal Discharge - Cardiovascular Cardiovascular: absent: Chest Pain, Chest Pain at Rest, Dyspnea, Dyspnea on Exertion - Respiratory Respiratory: absent: Dyspnea on Exertion, Wheezing - Gastrointestinal Gastrointestinal: absent: Abdominal Pain, Nausea, Vomiting - Genitourinary Genitourinary: absent: Dysuria - Musculoskeletal Musculoskeletal: absent: Numbness, Tingling - Integumentary Integumentary: absent: Wounds Critical Care Progress Note - Nutrition Nutrition: Nutrition Category Date Time Status NPO Diet [DIET] Diets 06/19/16 Breakfast Active Assessment/Plan - Assessment and Plan (Free Text) Assessment: 81 year old female, with PMHx of CAD, HTN, CHF, COPD, RA, Anxiety, and Dementia. Pt presents for acute SOB. She was intubated in field by EMS, given 3SL NTG, and IV Lasix. This is her 6th admission for CHF/flash pulm edema in 2 months. Plan: Pt status: Admit to ICU, Full code Neuro: AAOx3 - groggy s/p extubation Anxiety Xanax 1mg PO BID PRN Lexapro 5mg PO daily CV: CHF BNP 2260 (in line w. previous admission: 2790, 2960, 3500, 7510, 4380) CXR (06/19/16): Interval increased diffuse b/l infiltrates likely representing CH /pulm edema (see full report) CXR (06/20/16): Biapical pleural thickening with upper lobe granulomatous changes. Mild venous congestion. Mild patchy increased markings at both lung bases. Left hilar prominence. Small nodular density at both lung bases. (see full report) Cardiac Cath (12/31/15): Severe 2-vessel CAD. Successful PCI at mid right coronary w. GARRY. Severe lt ventricular systolic dysfunction (see full report) Dr. Kelley - cardio consult - help appreciated ECHO (01/12)- Read as: 55% EF, severe MR, moderate to severe TR, moderate pulmonary HTN - no repeat necessary, but Dr. Kelley feels true EF is lower than as read - f/u NM Muga scan ASA 325mg PO daily Coreg 6.25mg PO BID Plavix 75mg PO Daily Lasix 40mg IV Q12H Entresto 24/26 mg PO BID - D/C Cozaar Ranolazine 500mg PO BID Abnormal EKG EKG - Sinus tachycardia with PACs. Left axis deviation. LVH w. QRS widening and repolarization abnormality. Inferior infarct, age undetermined. History of CAD Lipid profile WNL (05/27 admission) ASA 325mg PO daily Crestor 10mg PO HS Pulm: Pt extubated today O2 sat: 99 on 3 L O2 Hx of COPD Duonebs Q6H BLAKE Singulair 10mg PO HS GI: Trial of CLD - f/u results LFTs WNL /renal: I/Os: ~ - 2L balance on 06/20 Good urine output Monitor [id number]: Hx of RA - pt family reports Percocet use for pain - Percocet 5/325 1 tab PO Q4H PRN Prophylaxis Heparin 5000 units SC Q12 Pepcid 20mg PO daily SCDs
--- NOTE | 2016-06-20 14:30 | PN ---
DATE: 06/20/2016 The patient is on the ventilator and gradual weaning down to CPAP today. Looking better. IMPRESSION: Pulmonary edema, . Will discuss with cardiology. Bronchodilators. Gisselle Vogel MD cc: [id number] TT: 06/20/2016 10:28:32 Confirmation # [id number] Dictation # [id number] en
[2016-06-20] MEDS: Sacubitril/Valsartan 24-26mg Tab PO SCH ×2 (17:35→17:38)
[2016-06-20] MEDS ORDERED: Potassium Chloride 20 mEq/15 ml LIQ UD PO STA (17:40)
--- NOTE | 2016-06-20 20:27 | CP.PCM.CON ---
History of Present Illness - History of Present Illness History of Present Illness: Reason For Consult: s/p Pulmonary edema This is an 81Y F with PMH of HTN, CAD, anxiety, COPD, HI x 2 s/p drug eluting stent in RCA, and CHF admitted for pulmonary edema. Now s/p extubation and feels better PMH: HTN, CAD, Anxiety, COPD, HI x 2, CHF PSH: Drug eluting stent in RCA (Dec 2015), cholecystectomy (2014), Hysterectomy , Vocal cord surgery Home meds: ASA, Coreg, Lasix, Plavix, lipitor, Cozaar, Xanax, Percocet, Ranexa, Megace, Lexapro All: Moxifloxacin (rash and swelling) SH: Heavy former smoked (quit 1yr ago), denies EtOH and drug use, lives with family FH: Non-contributory PMD: Dr. Beck Review of Systems - Review of Systems Review of Systems: As per HPI Physical Exam - Constitutional Appears: No Acute Distress - Head Exam Head Exam: NORMAL INSPECTION, NORMOCEPHALIC - Eye Exam Eye Exam: Normal appearance Pupil Exam: NORMAL ACCOMODATION - ENT Exam ENT Exam: Mucous Membranes Moist - Respiratory Exam Respiratory Exam: Clear to Auscultation Bilateral, NORMAL BREATHING PATTERN. absent: Rales, Rhonchi, Wheezes - Cardiovascular Exam Cardiovascular Exam: REGULAR RHYTHM, +S1, +S2. absent: Tachycardia, Gallop, Rubs, Systolic Murmur - GI/Abdominal Exam GI & Abdominal Exam: Normal Bowel Sounds, Soft. absent: Guarding, Mass, Rebound , Rigid, Tenderness - Extremities Exam Extremities exam: Positive for: normal inspection. Negative for: calf tenderness, pedal edema - Neurological Exam Neurological exam: Alert, CN II-XII Intact - Skin Skin Exam: Dry, Normal Color, Warm Past Patient History - Infectious Disease Hx of Infectious Diseases: None - Tetanus Immunizations Tetanus Immunization: Unknown - Past Medical History & Family History Past Medical History?: Yes - Past Social History Smoking Status: Never Smoked - CARDIAC Hx Congestive Heart Failure: Yes Hx Hypertension: Yes - PULMONARY Hx Asthma: Yes Hx Chronic Obstructive Pulmonary Disease (COPD): Yes Hx Pneumonia: Yes (08/2015) - NEUROLOGICAL Hx Dementia: Yes - HEENT Hx HEENT Problems: No - RENAL Hx Chronic Kidney Disease: No Hx Kidney Stones: No - ENDOCRINE/METABOLIC Hx Diabetes Mellitus Type 2: Yes Hx Hyperthyroidism: No Hx Hypothyroidism: No - HEMATOLOGICAL/ONCOLOGICAL Hx Anemia: No Hx Human Immunodeficiency Virus (HIV): No Hx Sickle Cell Disease: No - INTEGUMENTARY Hx Dermatological Problems: No - MUSCULOSKELETAL/RHEUMATOLOGICAL Hx Arthritis: Yes Hx Osteoporosis: Yes Hx Rheumatoid Arthritis: Yes - GASTROINTESTINAL Hx Gall Bladder Disease: Yes - GENITOURINARY/GYNECOLOGICAL Hx Sexually Transmitted Disorders: No - PSYCHIATRIC Hx Substance Use: No - SURGICAL HISTORY Hx Cholecystectomy: Yes Hx Coronary Stent: Yes (proximal RCA stent, 2 weeks ago) - ANESTHESIA Hx Anesthesia: Yes Hx Anesthesia Reactions: No Hx Malignant Hyperthermia: No Meds Allergies/Adverse Reactions: Allergies Allergy/AdvReac Type Severity Reaction Status Date / Time moxifloxacin HCl Allergy Severe ANAPHYLAXIS Verified 06/19/16 09:49 [From Avelox] - Medications Medications: Current Medications Albuterol/Ipratropium (Duoneb 3 Mg/0.5 Mg (3 Ml) Ud) 3 ml INH RQ6 [facility] Last Admin: 06/20/16 19:10 Dose: 3 ml Alprazolam (Xanax) 1 mg PO BID PRN PRN Reason: Anxiety Last Admin: 06/20/16 10:27 Dose: 1 mg Aspirin (Aspirin) 325 mg PO DAILY [facility] Last Admin: 06/20/16 09:19 Dose: 325 mg Carvedilol (Coreg) 6.25 mg PO BID [facility] Last Admin: 06/20/16 17:39 Dose: Not Given Clopidogrel Bisulfate (Plavix) 75 mg PO DAILY [facility] Last Admin: 06/20/16 09:21 Dose: 75 mg Escitalopram Oxalate (Lexapro) 5 mg PO DAILY [facility] Last Admin: 06/20/16 09:17 Dose: 5 mg Famotidine (Pepcid) 20 mg PO DAILY [facility] Last Admin: 06/20/16 09:17 Dose: 20 mg Furosemide (Lasix) 40 mg IVP Q12 [facility] Last Admin: 06/20/16 09:16 Dose: 40 mg Heparin Sodium (Porcine) (Heparin) 5,000 units SC Q12 [facility] Last Admin: 06/20/16 10:29 Dose: 5,000 units Montelukast Sodium (Singulair) 10 mg PO HS [facility] Last Admin: 06/19/16 21:33 Dose: 10 mg Oxycodone/Acetaminophen (Percocet 5/325 Mg Tab) 1 tab PO Q4H PRN PRN Reason: generalized pain Stop: 06/22/16 21:37 Last Admin: 06/20/16 09:19 Dose: 1 tab Ranolazine (Ranexa) 500 mg PO BID [facility] Last Admin: 06/20/16 18:00 Dose: 500 mg Rosuvastatin Calcium (Crestor) 10 mg PO HS [facility] Last Admin: 06/19/16 21:33 Dose: 10 mg Sacubitril/Valsartan (Entresto 24 Mg-26 Mg) 1 tab PO BID [facility] Last Admin: 06/20/16 17:38 Dose: Not Given Results - Vital Signs Recent Vital Signs: Last Vital Signs Temp 97.8 F 06/20/16 16:00 Pulse 74 06/20/16 19:00 Resp 19 06/20/16 19:00 BP 114/76 06/20/16 19:00 Pulse Ox 97 06/20/16 19:00 - Labs Result Diagrams: 06/20/16 06:33 06/20/16 06:33 Labs: Laboratory Results - last 24 hr 06/20/16 06/20/16 06/20/16 00:00 01:41 04:10 WBC RBC Hgb Hct MCV MCH MCHC RDW Plt Count MPV Neut % (Auto) Lymph % (Auto) Mathews % (Auto) Eos % (Auto) Baso % (Auto) Neut # Lymph # Mathews # Eos # Baso # Puncture Site Rb pCO2 27 L pO2 244 H HCO3 28.6 H ABG pH 7.59 H ABG Total CO2 26.7 ABG O2 Saturation 98.9 H ABG Base Excess 4.7 H ABG Hemoglobin 10.8 L ABG Carboxyhemoglobin 1.0 POC ABG HHb (Measured) 1.1 ABG Methemoglobin 0.9 Gael Test Na A-a O2 Difference 150.0 Respiratory Index 0.6 Hgb O2 Saturation 97.0 Mechanical Rate 16 FiO2 60.0 Tidal Volume 450 PEEP 5 Sodium Potassium Chloride Carbon Dioxide Anion Gap BUN Creatinine Est GFR ( Amer) Est GFR (Non-Af Amer) POC Glucose (mg/dL) 91 Random Glucose Calcium Phosphorus Magnesium Total Bilirubin AST ALT Alkaline Phosphatase Total Creatine Kinase 31 CK-MB (Mass) 0.79 Troponin I, Quant 0.0420 Total Protein Albumin Globulin Albumin/Globulin Ratio 06/20/16 06/20/16 06/20/16 04:35 06:33 11:55 WBC 9.9 RBC 4.17 Hgb 9.6 L Hct 29.9 L MCV 71.7 L MCH 23.0 L MCHC 32.1 L RDW 16.1 H Plt Count 306 MPV 10.7 Neut % (Auto) 74.1 Lymph % (Auto) 13.8 L Mathews % (Auto) 9.9 Eos % (Auto) 1.2 Baso % (Auto) 1.0 Neut # 7.3 H Lymph # 1.4 Mathews # 1.0 H Eos # 0.1 Baso # 0.1 Puncture Site pCO2 pO2 HCO3 ABG pH ABG Total CO2 ABG O2 Saturation ABG Base Excess ABG Hemoglobin ABG Carboxyhemoglobin POC ABG HHb (Measured) ABG Methemoglobin Gael Test A-a O2 Difference Respiratory Index Hgb O2 Saturation Mechanical Rate FiO2 Tidal Volume PEEP Sodium 143 Potassium 3.3 L Chloride 101 Carbon Dioxide 24 Anion Gap 21 H BUN 17 Creatinine 0.9 Est GFR ( Amer) > 60 Est GFR (Non-Af Amer) 60 POC Glucose (mg/dL) 104 117 H Random Glucose 94 Calcium 9.3 Phosphorus 4.4 Magnesium 1.6 Total Bilirubin 1.5 H AST 21 ALT 8 L D Alkaline Phosphatase 96 Total Creatine Kinase CK-MB (Mass) Troponin I, Quant Total Protein 7.9 Albumin 4.2 Globulin 3.7 Albumin/Globulin Ratio 1.1 06/20/16 17:56 WBC RBC Hgb Hct MCV MCH MCHC RDW Plt Count MPV Neut % (Auto) Lymph % (Auto) Mathews % (Auto) Eos % (Auto) Baso % (Auto) Neut # Lymph # Mathews # Eos # Baso # Puncture Site pCO2 pO2 HCO3 ABG pH ABG Total CO2 ABG O2 Saturation ABG Base Excess ABG Hemoglobin ABG Carboxyhemoglobin POC ABG HHb (Measured) ABG Methemoglobin Gael Test A-a O2 Difference Respiratory Index Hgb O2 Saturation Mechanical Rate FiO2 Tidal Volume PEEP Sodium Potassium Chloride Carbon Dioxide Anion Gap BUN Creatinine Est GFR ( Amer) Est GFR (Non-Af Amer) POC Glucose (mg/dL) 129 H Random Glucose Calcium Phosphorus Magnesium Total Bilirubin AST ALT Alkaline Phosphatase Total Creatine Kinase CK-MB (Mass) Troponin I, Quant Total Protein Albumin Globulin Albumin/Globulin Ratio Assessment & Plan - Assessment and Plan (Free Text) Assessment: 81 year old female, with PMHx of CAD, HTN, CHF, COPD, RA, Anxiety, and Dementia. Pt presents for acute SOB. She was intubated in field by EMS, given 3SL NTG, and IV Lasix. This is her 6th admission for CHF/flash pulm edema in 2 months. CV: CHF. Likely systolic Check MUGA to assess acurate EF Add Entresto IV Lasix Patient has residual CAD Fixing LAD could likely improve symptoms Patient also has significant MR (Severe) Not a cabdidate for MV repair/replacement Will assess for [employer] eligibility Pulm: Pt extubated today O2 sat: 99 on 3 L O2 Hx of COPD Duonebs Q6H BLAKE Singulair 10mg PO HS GI: Trial of CLD - f/u results LFTs WNL /renal: I/Os: ~ - 2L balance on 06/20 Good urine output Monitor [id number]: Hx of RA - pt family reports Percocet use for pain - Percocet 5/325 1 tab PO Q4H PRN Prophylaxis Heparin 5000 units SC Q12 Pepcid 20mg PO daily SCDs
[2016-06-21] MEDS: Albuterol-Ipratrop 3 mg / 0.5 (3 ml) UD INH SCH ×4 (01:04→19:17)
[2016-06-21 06:51] LABS: CHLORIDE 103 mmol/L (98-107)
[2016-06-21 06:52] LABS: POTASSIUM 4.4 mmol/L (3.6-5.2); SODIUM 143 mmol/L (132-148)
[2016-06-21 06:53] LABS: BASO # 0.1 K/uL (0.0-0.2); BASO % 1.2 % (0.0-2.0); EOS # 0.3 K/uL (0.0-0.7); HEMATOCRIT 33.4 % (34.0-47.0); LYMPH # 1.7 K/uL (1.0-4.3); LYMPH % 14.3 % (20.0-40.0); MEAN CELL VOLUME 72.3 fL (81.0-99.0); MEAN CORPUSCULAR HEMOGLOBIN 22.8 pg (27.0-31.0); MEAN CORPUSCULAR HGB CONC 31.6 g/dL (33.0-37.0); MEAN PLATELET VOLUME 10.4 fL (7.2-11.7); MONO # 1.2 K/uL (0.0-0.8); MONO % 10.1 % (0.0-10.0); NRBC % 0.1 % (0.0-2.0); WHITE BLOOD COUNT 11.7 K/uL (4.8-10.8)
[2016-06-21 06:54] LABS: BILIRUBIN,TOTAL 1.5 mg/dL (0.2-1.3); GFR AFRICAN-AMERICAN > 60
[2016-06-21 06:55] LABS: ALB/GLOB RATIO 1.1 (1.0-2.1); ALKALINE PHOSPHATASE 98 U/L (38-126); AST/SGOT 21 U/L (14-36); BLOOD UREA NITROGEN 26 mg/dL (7-17); CALCIUM 9.6 mg/dl (8.6-10.4); CARBON DIOXIDE 24 mmol/L (22-30); GLUCOSE,RANDOM 115 mg/dL (65-105); MAGNESIUM 1.9 mg/dL (1.6-2.3); PHOSPHOROUS 3.9 mg/dL (2.5-4.5); TOTAL PROTEIN 8.4 g/dL (6.3-8.3)
[2016-06-21 07:15] LABS: ALT/SGPT < 6 U/L (9-52)
[2016-06-21] MEDS: Ranolazine 500 mg Extended Release Tablets PO SCH ×2 (10:08→18:24)
[2016-06-21] MEDS: Sacubitril/Valsartan 24-26mg Tab PO SCH (10:18)
--- NOTE | 2016-06-21 10:21 | RAD ---
HISTORY: f/u s/p extubation COMPARISON: 06/20/2016 FINDINGS: LUNGS: Interval removal of an endotracheal and NG tube. Biapical pleural thickening with upper lobe granulomatous changes. Diffuse increased interstitial lung markings. Bilateral hilar prominence. Mild patchy bibasilar airspace opacities. PLEURA: As above. CARDIOVASCULAR: Normal. OSSEOUS STRUCTURES: No significant abnormalities. VISUALIZED UPPER ABDOMEN: Normal. OTHER FINDINGS: None. IMPRESSION: Interval removal of an endotracheal and NG tube. Biapical pleural thickening with upper lobe granulomatous changes. Diffuse increased interstitial lung markings. Bilateral hilar prominence. Mild patchy bibasilar airspace opacities.
--- NOTE | 2016-06-21 13:38 | CP.CCUPN ---
<Otoniel Tolbert - Last Filed: 06/21/16 14:47> CCU Subjective - Physician Review Subjective (Free Text): 06/21/16 13:33 Pt seen and examined at bedside. Pt only c/o of throat irritation post- extubation. Current O2 sat is 100% on 2L O2. Pt tolerated CLD last night, so was advanced to soft diet. Pt denies chest pain, palpitations, SOB on nasal cannula, abdominal pain, N/V/D/C. Critical Care Time Spent (in minutes): 40 CCU Objective - Vital Signs / Intake & Output Vital Signs (Last 4 hours): Vital Signs BP 06/21/16 09:38 109/57 L Intake and Output (Last 8hrs): Intake & Output 06/20/16 06/21/16 06/21/16 22:59 06:59 14:59 Intake Total 160 440 430 Output Total 500 600 451 Balance -340 -160 -21 Weight 963 lb 9.6 oz Intake: Intake, IV Amount 0 0 Left Forearm 0 0 Right Wrist 0 0 Oral 160 440 430 Output: Urine 500 600 450 Urethral (Hernandez) 500 Urine, Voided 600 450 Stool 1 - Physical Exam Head: Positive for: Atraumatic, Normocephalic Pupils: Positive for: PERRL Extroacular Muscles: Positive for: EOMI Conjunctiva: Positive for: Normal Mouth: Positive for: Moist Mucous Membranes Respiratory/Chest: Positive for: Accessory Muscle Use. Negative for: Respiratory Distress Cardiovascular: Positive for: Regular Rate and Rhythm, Normal S1, S2 Abdomen: Positive for: Normal Bowel Sounds. Negative for: Tenderness, Distention Upper Extremity: Positive for: Normal Inspection Lower Extremity: Positive for: Normal Inspection Neurological: Positive for: GCS=15, CN II-XII Intact, Speech Normal Skin: Positive for: Warm, Dry Psychiatric: Positive for: Alert, Oriented x 3 - Medications Active Medications: Active Medications Generic Name Dose Route Start Last Admin Trade Name Freq PRN Reason Stop Dose Admin Albuterol/Ipratropium 3 ml 06/19/16 14:00 06/21/16 07:37 Duoneb 3 Mg/0.5 Mg (3 Ml) Ud INH 3 ml RQ6 BLAKE Administration Alprazolam 1 mg 06/20/16 10:00 06/21/16 09:37 Xanax PO 1 mg BID PRN Administration Anxiety Aspirin 325 mg 06/20/16 10:00 06/21/16 09:37 Aspirin PO 325 mg DAILY BLAKE Administration Carvedilol 6.25 mg 06/19/16 18:00 06/21/16 09:38 Coreg PO 6.25 mg BID BLAKE Administration Clopidogrel Bisulfate 75 mg 06/20/16 10:00 06/21/16 09:37 Plavix PO 75 mg DAILY BLAKE Administration Escitalopram Oxalate 5 mg 06/20/16 10:00 06/21/16 10:09 Lexapro PO 5 mg DAILY BLAKE Administration Famotidine 20 mg 06/19/16 18:00 06/21/16 09:37 Pepcid PO 20 mg DAILY BLAKE Administration Furosemide 40 mg 06/19/16 22:00 06/21/16 09:38 Lasix IVP 40 mg Q12 BLAKE Administration Heparin Sodium (Porcine) 5,000 units 06/20/16 10:00 06/21/16 09:38 Heparin SC 5,000 units Q12 BLAKE Administration Montelukast Sodium 10 mg 06/19/16 22:00 06/20/16 21:41 Singulair PO 10 mg HS BLAKE Administration Oxycodone/Acetaminophen 1 tab 06/19/16 21:36 06/20/16 09:19 Percocet 5/325 Mg Tab PO 06/22/16 21:37 1 tab Q4H PRN Administration generalized pain Ranolazine 500 mg 06/19/16 18:00 06/21/16 10:08 Ranexa PO 500 mg BID BLAKE Administration Rosuvastatin Calcium 10 mg 06/19/16 22:00 06/20/16 21:40 Crestor PO 10 mg HS BLAKE Administration Sacubitril/Valsartan 1 tab 06/20/16 18:00 06/21/16 10:18 Entresto 24 Mg-26 Mg PO 1 tab BID BLAKE Administration - Patient Studies Lab Studies: Microbiology Studies 06/19/16 19:00 MRSA Culture (Admit) - Final Naris MRSA NOT DETECTED Lab Studies 06/21/16 06/21/16 06/21/16 Range/Units 12:25 06:30 06:30 WBC 11.7 H (4.8-10.8) K/uL RBC 4.62 (3.80-5.20) Mil/uL Hgb 10.5 L (11.0-16.0) g/dL Hct 33.4 L (34.0-47.0) % MCV 72.3 L (81.0-99.0) fL MCH 22.8 L (27.0-31.0) pg MCHC 31.6 L (33.0-37.0) g/dL RDW 16.0 H (11.5-14.5) % Plt Count 310 (130-400) K/uL MPV 10.4 (7.2-11.7) fL Neut % (Auto) 71.4 (50.0-75.0) % Lymph % (Auto) 14.3 L (20.0-40.0) % [place] % (Auto) 10.1 H (0.0-10.0) % Eos % (Auto) 3.0 (0.0-4.0) % Baso % (Auto) 1.2 (0.0-2.0) % Neut # 8.4 H (1.8-7.0) K/uL Lymph # 1.7 (1.0-4.3) K/uL [place] # 1.2 H (0.0-0.8) K/uL Eos # 0.3 (0.0-0.7) K/uL Baso # 0.1 (0.0-0.2) K/uL Sodium 143 (132-148) mmol/L Potassium 4.4 (3.6-5.2) mmol/L Chloride 103 (98-107) mmol/L Carbon Dioxide 24 (22-30) mmol/L Anion Gap 21 H (10-20) BUN 26 H (7-17) mg/dL Creatinine 1.0 (0.7-1.2) MG/DL Est GFR ( Amer) > 60 Est GFR (Non-Af Amer) 53 POC Glucose (mg/dL) 155 H (65-110) mg/dL Random Glucose 115 H (65-105) mg/dL Calcium 9.6 (8.6-10.4) mg/dl Phosphorus 3.9 (2.5-4.5) mg/dL Magnesium 1.9 (1.6-2.3) mg/dL Total Bilirubin 1.5 H (0.2-1.3) mg/dL AST 21 (14-36) U/L ALT < 6 L D (9-52) U/L Alkaline Phosphatase 98 (38-126) U/L Total Protein 8.4 H (6.3-8.3) g/dL Albumin 4.4 (3.5-5.0) g/dL Globulin 4.0 H (2.2-3.9) gm/dL Albumin/Globulin Ratio 1.1 (1.0-2.1) 06/20/16 Range/Units 17:56 WBC (4.8-10.8) K/uL RBC (3.80-5.20) Mil/uL Hgb (11.0-16.0) g/dL Hct (34.0-47.0) % MCV (81.0-99.0) fL MCH (27.0-31.0) pg MCHC (33.0-37.0) g/dL RDW (11.5-14.5) % Plt Count (130-400) K/uL MPV (7.2-11.7) fL Neut % (Auto) (50.0-75.0) % Lymph % (Auto) (20.0-40.0) % [place] % (Auto) (0.0-10.0) % Eos % (Auto) (0.0-4.0) % Baso % (Auto) (0.0-2.0) % Neut # (1.8-7.0) K/uL Lymph # (1.0-4.3) K/uL [place] # (0.0-0.8) K/uL Eos # (0.0-0.7) K/uL Baso # (0.0-0.2) K/uL Sodium (132-148) mmol/L Potassium (3.6-5.2) mmol/L Chloride (98-107) mmol/L Carbon Dioxide (22-30) mmol/L Anion Gap (10-20) BUN (7-17) mg/dL Creatinine (0.7-1.2) MG/DL Est GFR ( Amer) Est GFR (Non-Af Amer) POC Glucose (mg/dL) 129 H (65-110) mg/dL Random Glucose (65-105) mg/dL Calcium (8.6-10.4) mg/dl Phosphorus (2.5-4.5) mg/dL Magnesium (1.6-2.3) mg/dL Total Bilirubin (0.2-1.3) mg/dL AST (14-36) U/L ALT (9-52) U/L Alkaline Phosphatase (38-126) U/L Total Protein (6.3-8.3) g/dL Albumin (3.5-5.0) g/dL Globulin (2.2-3.9) gm/dL Albumin/Globulin Ratio (1.0-2.1) Laboratory Results - last 24 hr 06/20/16 06/21/16 06/21/16 17:56 06:30 06:30 WBC 11.7 H RBC 4.62 Hgb 10.5 L Hct 33.4 L MCV 72.3 L MCH 22.8 L MCHC 31.6 L RDW 16.0 H Plt Count 310 MPV 10.4 Neut % (Auto) 71.4 Lymph % (Auto) 14.3 L [place] % (Auto) 10.1 H Eos % (Auto) 3.0 Baso % (Auto) 1.2 Neut # 8.4 H Lymph # 1.7 [place] # 1.2 H Eos # 0.3 Baso # 0.1 Sodium 143 Potassium 4.4 Chloride 103 Carbon Dioxide 24 Anion Gap 21 H BUN 26 H Creatinine 1.0 Est GFR ( Amer) > 60 Est GFR (Non-Af Amer) 53 POC Glucose (mg/dL) 129 H Random Glucose 115 H Calcium 9.6 Phosphorus 3.9 Magnesium 1.9 Total Bilirubin 1.5 H AST 21 ALT < 6 L D Alkaline Phosphatase 98 Total Protein 8.4 H Albumin 4.4 Globulin 4.0 H Albumin/Globulin Ratio 1.1 06/21/16 12:25 WBC RBC Hgb Hct MCV MCH MCHC RDW Plt Count MPV Neut % (Auto) Lymph % (Auto) [place] % (Auto) Eos % (Auto) Baso % (Auto) Neut # Lymph # [place] # Eos # Baso # Sodium Potassium Chloride Carbon Dioxide Anion Gap BUN Creatinine Est GFR ( Amer) Est GFR (Non-Af Amer) POC Glucose (mg/dL) 155 H Random Glucose Calcium Phosphorus Magnesium Total Bilirubin AST ALT Alkaline Phosphatase Total Protein Albumin Globulin Albumin/Globulin Ratio Fingerstick Blood Sugar Results: 129 Review of Systems - Constitutional Constitutional: absent: Fever, Chills - EENT Eyes: absent: Change in Vision Ears: absent: Decreased Hearing - Cardiovascular Cardiovascular: absent: Chest Pain, Chest Pain at Rest, Dyspnea - Respiratory Respiratory: absent: Cough, Dyspnea, Dyspnea on Exertion - Gastrointestinal Gastrointestinal: absent: Abdominal Pain, Nausea, Vomiting - Genitourinary Genitourinary: absent: Dysuria - Musculoskeletal Musculoskeletal: absent: Back Pain, Numbness, Tingling - Neurological Neurological: absent: Confusion, Tingling, Weakness - Endocrine Endocrine: absent: Palpitations Critical Care Progress Note - Nutrition Nutrition: Nutrition Category Date Time Status Soft [Dysphagia/Modified Consistency Diet] [DIET] Diets 06/21/16 Lunch Active Assessment/Plan - Assessment and Plan (Free Text) Assessment: 81 year old female, with PMHx of CAD, HTN, CHF, COPD, RA, Anxiety, and Dementia. Pt presents for acute SOB. She was intubated in field by EMS, given 3SL NTG, and IV Lasix. This is her 6th admission for CHF/flash pulm edema in 2 months. Plan: Pt status: Admit to ICU, Full code Neuro: AAOx3 Anxiety Xanax 1mg PO BID PRN Lexapro 5mg PO daily CV: CHF BNP 2260 (in line w. previous admission: 2790, 2960, 3500, 7510, 4380) CXR (06/19/16): Interval increased diffuse b/l infiltrates likely representing CH /pulm edema (see full report) CXR (06/21/16): Biapical pleural thickening with upper lobe granulomatous changes. Mild venous congestion. Mild patchy bibasilar airspace opacities. (see full report) Cardiac Cath (12/31/15): Severe 2-vessel CAD. Successful PCI at mid right coronary w. GARRY. Severe lt ventricular systolic dysfunction (see full report) Dr. Kelley - cardio consult - help appreciated ECHO (01/12)- Read as: 55% EF, severe MR, moderate to severe TR, moderate pulmonary HTN - no repeat necessary, but Dr. Kelley feels true EF is lower than as read - Pt may benefit from mitral clip - f/u NM Muga scan for assessment of EF ASA 325mg PO daily Coreg 6.25mg PO BID Plavix 75mg PO Daily Lasix 40mg IV Q12H Entresto 24/26 mg PO BID - D/C Cozaar Ranolazine 500mg PO BID Abnormal EKG EKG - Sinus tachycardia with PACs. Left axis deviation. LVH w. QRS widening and repolarization abnormality. Inferior infarct, age undetermined. History of CAD Lipid profile WNL (05/27 admission) ASA 325mg PO daily Crestor 10mg PO HS Pulm: Pt extubated today O2 sat: 99 on 3 L O2 Hx of COPD Duonebs Q6H BLAKE Singulair 10mg PO HS GI: ADAT: currently soft LFTs WNL /renal: I/Os: ~ - 2L balance on 06/20 Good urine output Monitor MSKLTL: Hx of RA - pt family reports Percocet use for pain - Percocet 5/325 1 tab PO Q4H PRN Prophylaxis Heparin 5000 units SC Q12 Pepcid 20mg PO daily SCDs <Rustam Villa S - Last Filed: 06/21/16 17:58> CCU Objective - Vital Signs / Intake & Output Vital Signs (Last 4 hours): Vital Signs Pulse Resp BP Pulse Ox 06/21/16 14:00 77 15 85/39 L 94 L Intake and Output (Last 8hrs): Intake & Output 06/21/16 06/21/16 06/21/16 06:59 14:59 22:59 Intake Total 440 580 250 Output Total 600 451 Balance -160 129 250 Intake: Intake, IV Amount 0 250 Left Forearm 0 250 Right Wrist 0 Oral 440 580 0 Output: Urine 600 450 Urine, Voided 600 450 Stool 1 - Medications Active Medications: Active Medications Generic Name Dose Route Start Last Admin Trade Name Freq PRN Reason Stop Dose Admin Albuterol/Ipratropium 3 ml 06/19/16 14:00 06/21/16 13:53 Duoneb 3 Mg/0.5 Mg (3 Ml) Ud INH Not Given RQ6 BLAKE Alprazolam 1 mg 06/20/16 10:00 06/21/16 09:37 Xanax PO 1 mg BID PRN Administration Anxiety Aspirin 325 mg 06/20/16 10:00 06/21/16 09:37 Aspirin PO 325 mg DAILY BLAKE Administration Carvedilol 6.25 mg 06/19/16 18:00 06/21/16 09:38 Coreg PO 6.25 mg BID BLAKE Administration Clopidogrel Bisulfate 75 mg 06/20/16 10:00 06/21/16 09:37 Plavix PO 75 mg DAILY BLAKE Administration Escitalopram Oxalate 5 mg 06/20/16 10:00 06/21/16 10:09 Lexapro PO 5 mg DAILY BLAKE Administration Famotidine 20 mg 06/19/16 18:00 06/21/16 09:37 Pepcid PO 20 mg DAILY BLAKE Administration Furosemide 20 mg 06/21/16 16:30 Lasix IVP Q12H BLAKE Heparin Sodium (Porcine) 5,000 units 06/20/16 10:00 06/21/16 09:38 Heparin SC 5,000 units Q12 BLAKE Administration Sodium Chloride 1,000 mls @ 50 mls/hr 06/21/16 16:30 Sodium Chloride 0.9% IV 06/22/16 16:31 .Q20H BLAKE Dopamine HCl/Dextrose 400 mg in 250 mls @ 32.781 mls/hr 06/21/16 17:17 Dopamine 400mg/250ml D5w IV .Q7H38M PRN TITRATE PER MD ORDER Protocol 2 MCG/KG/MIN Sodium Chloride 500 mls @ 500 mls/hr 06/21/16 17:18 06/21/16 17:21 Sodium Chloride 0.9% IV 06/21/16 18:15 500 mls/hr .Q1H ONE Administration Montelukast Sodium 10 mg 06/19/16 22:00 06/20/16 21:41 Singulair PO 10 mg HS BLAKE Administration Oxycodone/Acetaminophen 1 tab 06/19/16 21:36 06/20/16 09:19 Percocet 5/325 Mg Tab PO 06/22/16 21:37 1 tab Q4H PRN Administration generalized pain Ranolazine 500 mg 06/19/16 18:00 06/21/16 10:08 Ranexa PO 500 mg BID BLAKE Administration Rosuvastatin Calcium 10 mg 06/19/16 22:00 06/20/16 21:40 Crestor PO 10 mg HS BLAKE Administration Sacubitril/Valsartan 1 tab 06/20/16 18:00 06/21/16 10:18 Entresto 24 Mg-26 Mg PO 1 tab BID BLAKE Administration - Patient Studies Lab Studies: Microbiology Studies 06/19/16 19:00 MRSA Culture (Admit) - Final Naris MRSA NOT DETECTED Lab Studies 06/21/16 06/21/16 06/21/16 Range/Units 12:25 06:30 06:30 WBC 11.7 H (4.8-10.8) K/uL RBC 4.62 (3.80-5.20) Mil/uL Hgb 10.5 L (11.0-16.0) g/dL Hct 33.4 L (34.0-47.0) % MCV 72.3 L (81.0-99.0) fL MCH 22.8 L (27.0-31.0) pg MCHC 31.6 L (33.0-37.0) g/dL RDW 16.0 H (11.5-14.5) % Plt Count 310 (130-400) K/uL MPV 10.4 (7.2-11.7) fL Neut % (Auto) 71.4 (50.0-75.0) % Lymph % (Auto) 14.3 L (20.0-40.0) % [place] % (Auto) 10.1 H (0.0-10.0) % Eos % (Auto) 3.0 (0.0-4.0) % Baso % (Auto) 1.2 (0.0-2.0) % Neut # 8.4 H (1.8-7.0) K/uL Lymph # 1.7 (1.0-4.3) K/uL [place] # 1.2 H (0.0-0.8) K/uL Eos # 0.3 (0.0-0.7) K/uL Baso # 0.1 (0.0-0.2) K/uL Sodium 143 (132-148) mmol/L Potassium 4.4 (3.6-5.2) mmol/L Chloride 103 (98-107) mmol/L Carbon Dioxide 24 (22-30) mmol/L Anion Gap 21 H (10-20) BUN 26 H (7-17) mg/dL Creatinine 1.0 (0.7-1.2) MG/DL Est GFR ( Amer) > 60 Est GFR (Non-Af Amer) 53 POC Glucose (mg/dL) 155 H (65-110) mg/dL Random Glucose 115 H (65-105) mg/dL Calcium 9.6 (8.6-10.4) mg/dl Phosphorus 3.9 (2.5-4.5) mg/dL Magnesium 1.9 (1.6-2.3) mg/dL Total Bilirubin 1.5 H (0.2-1.3) mg/dL AST 21 (14-36) U/L ALT < 6 L D (9-52) U/L Alkaline Phosphatase 98 (38-126) U/L Total Protein 8.4 H (6.3-8.3) g/dL Albumin 4.4 (3.5-5.0) g/dL Globulin 4.0 H (2.2-3.9) gm/dL Albumin/Globulin Ratio 1.1 (1.0-2.1) 06/20/16 Range/Units 17:56 WBC (4.8-10.8) K/uL RBC (3.80-5.20) Mil/uL Hgb (11.0-16.0) g/dL Hct (34.0-47.0) % MCV (81.0-99.0) fL MCH (27.0-31.0) pg MCHC (33.0-37.0) g/dL RDW (11.5-14.5) % Plt Count (130-400) K/uL MPV (7.2-11.7) fL Neut % (Auto) (50.0-75.0) % Lymph % (Auto) (20.0-40.0) % [place] % (Auto) (0.0-10.0) % Eos % (Auto) (0.0-4.0) % Baso % (Auto) (0.0-2.0) % Neut # (1.8-7.0) K/uL Lymph # (1.0-4.3) K/uL [place] # (0.0-0.8) K/uL Eos # (0.0-0.7) K/uL Baso # (0.0-0.2) K/uL Sodium (132-148) mmol/L Potassium (3.6-5.2) mmol/L Chloride (98-107) mmol/L Carbon Dioxide (22-30) mmol/L Anion Gap (10-20) BUN (7-17) mg/dL Creatinine (0.7-1.2) MG/DL Est GFR ( Amer) Est GFR (Non-Af Amer) POC Glucose (mg/dL) 129 H (65-110) mg/dL Random Glucose (65-105) mg/dL Calcium (8.6-10.4) mg/dl Phosphorus (2.5-4.5) mg/dL Magnesium (1.6-2.3) mg/dL Total Bilirubin (0.2-1.3) mg/dL AST (14-36) U/L ALT (9-52) U/L Alkaline Phosphatase (38-126) U/L Total Protein (6.3-8.3) g/dL Albumin (3.5-5.0) g/dL Globulin (2.2-3.9) gm/dL Albumin/Globulin Ratio (1.0-2.1) Laboratory Results - last 24 hr 06/20/16 06/21/16 06/21/16 17:56 06:30 06:30 WBC 11.7 H RBC 4.62 Hgb 10.5 L Hct 33.4 L MCV 72.3 L MCH 22.8 L MCHC 31.6 L RDW 16.0 H Plt Count 310 MPV 10.4 Neut % (Auto) 71.4 Lymph % (Auto) 14.3 L [place] % (Auto) 10.1 H Eos % (Auto) 3.0 Baso % (Auto) 1.2 Neut # 8.4 H Lymph # 1.7 [place] # 1.2 H Eos # 0.3 Baso # 0.1 Sodium 143 Potassium 4.4 Chloride 103 Carbon Dioxide 24 Anion Gap 21 H BUN 26 H Creatinine 1.0 Est GFR ( Amer) > 60 Est GFR (Non-Af Amer) 53 POC Glucose (mg/dL) 129 H Random Glucose 115 H Calcium 9.6 Phosphorus 3.9 Magnesium 1.9 Total Bilirubin 1.5 H AST 21 ALT < 6 L D Alkaline Phosphatase 98 Total Protein 8.4 H Albumin 4.4 Globulin 4.0 H Albumin/Globulin Ratio 1.1 06/21/16 12:25 WBC RBC Hgb Hct MCV MCH MCHC RDW Plt Count MPV Neut % (Auto) Lymph % (Auto) [place] % (Auto) Eos % (Auto) Baso % (Auto) Neut # Lymph # [place] # Eos # Baso # Sodium Potassium Chloride Carbon Dioxide Anion Gap BUN Creatinine Est GFR ( Amer) Est GFR (Non-Af Amer) POC Glucose (mg/dL) 155 H Random Glucose Calcium Phosphorus Magnesium Total Bilirubin AST ALT Alkaline Phosphatase Total Protein Albumin Globulin Albumin/Globulin Ratio Critical Care Progress Note - Nutrition Nutrition: Nutrition Category Date Time Status Soft [Dysphagia/Modified Consistency Diet] [DIET] Diets 06/21/16 Lunch Active Attending/Attestation - Attestation I have personally seen and examined this patient.: Yes I have fully participated in the care of the patient.: Yes I have reviewed all pertinent clinical information: Yes Notes (Text): 06/21/16 17:56 Patient seen and examined in the intensive care unit. Case discussed with house staff in the morning rounds. 81 year old female, with PMHx of CAD, HTN, CHF, COPD, RA, Anxiety, and Dementia. Pt presents for acute SOB. She was intubated in field by EMS, given 3SL NTG, and IV Lasix. Patient extubated after weaning trial yesterday. Lasix stopped Because of hypotension and started on dopamine.gentle hydration
[2016-06-21] MEDS ORDERED: Sodium Chloride 0.9% 250 ML IV ONE (16:04)
[2016-06-21] MEDS ORDERED: Sodium Chloride 0.9% 500 ML IV ONE ×2 (17:16→17:18)
[2016-06-21] MEDS ORDERED: DOPamine 400mg/250ml D5W 400 MG/250 ML BAG IV PRN ×4 (17:17→20:01)
[2016-06-21] MEDS: Sodium Chloride 0.9% 1,000 ML IV SCH (18:21)
--- NOTE | 2016-06-21 21:24 | CARD ---
APPROVED REPORT INDICATION CHF, RESPIRATORY FAILURE/ EVAL EJECTION FRACTION PROCEDURE The above named patient recieved 24.9 millicuries of Tc99m tagged red blood cells intravenously. After achieving equilibrium, gated imaging of 16/frame/cycle was performed utillizing Gamma camera interfaced with a digital computer and gated device. Gated imaging was then performed in the left anterior oblique, anterior, and the left lateral projections. Findings Calculated LV Ejection Fraction is 32%. Normal Ejection Fraction for this facility is 55%. Impressions Abnormal KIM study. Calculated Ejection Fraction is 32 %.
[2016-06-21] MEDS: Oxycodone/Acetaminophen 5/325 mg Tab PO PRN (21:31)
--- NOTE | 2016-06-21 22:02 | CP.PCM.PN ---
Subjective - Date & Time of Evaluation Date of Evaluation: 06/21/16 Time of Evaluation: 19:00 - Subjective Subjective: Patient seen and evaluated Hypotensive on Dopamine drip Denies chest pain and dyspnea Physical Examination - Physical Exam Head: Positive for: Atraumatic, Normocephalic Pupils: Positive for: PERRL Extroacular Muscles: Positive for: EOMI Conjunctiva: Positive for: Normal Mouth: Positive for: Moist Mucous Membranes Respiratory/Chest: Positive for: Accessory Muscle Use. Negative for: Respiratory Distress Cardiovascular: Positive for: Regular Rate and Rhythm, Normal S1, S2 Abdomen: Positive for: Normal Bowel Sounds. Negative for: Tenderness, Distention Upper Extremity: Positive for: Normal Inspection Lower Extremity: Positive for: Normal Inspection Neurological: Positive for: GCS=15, CN II-XII Intact, Speech Normal Skin: Positive for: Warm, Dry Psychiatric: Positive for: Alert, Oriented x 3 Objective - Vital Signs/Intake and Output Vital Signs (last 24 hours): Temp Pulse Resp BP Pulse Ox 97.6 F 102 H 18 88/53 L 96 06/21/16 16:00 06/21/16 19:30 06/21/16 19:30 06/21/16 19:30 06/21/16 19:30 Intake and Output: 06/21/16 06/22/16 18:59 06:59 Intake Total 1540 53.3 Output Total 451 Balance 1089 53.3 - Medications Medications: Current Medications Albuterol/Ipratropium (Duoneb 3 Mg/0.5 Mg (3 Ml) Ud) 3 ml INH RQ6 [facility] Last Admin: 06/21/16 19:17 Dose: 3 ml Alprazolam (Xanax) 1 mg PO BID PRN PRN Reason: Anxiety Last Admin: 06/21/16 09:37 Dose: 1 mg Aspirin (Aspirin) 325 mg PO DAILY [facility] Last Admin: 06/21/16 09:37 Dose: 325 mg Carvedilol (Coreg) 6.25 mg PO BID [facility] Last Admin: 06/21/16 09:38 Dose: 6.25 mg Clopidogrel Bisulfate (Plavix) 75 mg PO DAILY [facility] Last Admin: 06/21/16 09:37 Dose: 75 mg Escitalopram Oxalate (Lexapro) 5 mg PO DAILY [facility] Last Admin: 06/21/16 10:09 Dose: 5 mg Famotidine (Pepcid) 20 mg PO DAILY [facility] Last Admin: 06/21/16 09:37 Dose: 20 mg Furosemide (Lasix) 20 mg IVP Q12H [facility] Heparin Sodium (Porcine) (Heparin) 5,000 units SC Q12 [facility] Last Admin: 06/21/16 21:29 Dose: 5,000 units Sodium Chloride (Sodium Chloride 0.9%) 1,000 mls @ 50 mls/hr IV .Q20H BLAKE Stop: 06/22/16 16:31 Last Admin: 06/21/16 18:21 Dose: 50 mls/hr Dopamine HCl/Dextrose (Dopamine 400mg/250ml D5w) 400 mg in 250 mls @ 3.368 mls/ hr IV .Q24H PRN; Protocol; 2 MCG/KG/MIN PRN Reason: TITRATE PER MD ORDER Last Titration: 06/21/16 21:00 Dose: 5 mcg/kg/min, 8.42 mls/hr Montelukast Sodium (Singulair) [address] [facility] Last Admin: 06/21/16 21:28 Dose: 10 mg Oxycodone/Acetaminophen (Percocet 5/325 Mg Tab) 1 tab PO Q4H PRN PRN Reason: generalized pain Stop: 06/22/16 21:37 Last Admin: 06/21/16 21:31 Dose: 1 tab Ranolazine (Ranexa) 500 mg PO BID [facility] Last Admin: 06/21/16 18:24 Dose: 500 mg Rosuvastatin Calcium (Crestor) [address] [facility] Last Admin: 06/21/16 21:28 Dose: 10 mg Sacubitril/Valsartan (Entresto 24 Mg-26 Mg) 1 tab PO BID [facility] Last Admin: 06/21/16 10:18 Dose: 1 tab - Labs Labs: 06/21/16 06:30 06/21/16 06:30 PT 15.1 SECONDS (9.7-12.2) H 06/19/16 10:11 INR 1.3 06/19/16 10:11 APTT 28 SECONDS (21-34) 06/19/16 10:11 Assessment and Plan - Assessment and Plan (Free Text) Assessment: 81 year old female, with PMHx of CAD, HTN, CHF, COPD, RA, Anxiety, and Dementia. Pt presents for acute SOB. She was intubated in field by EMS, given 3SL NTG, and IV Lasix. This is her 6th admission for CHF/flash pulm edema in 2 months. CV: EF 32% by MUGA Systolic Heart Failure Currently hypotensive on Dopamine Hold anti hypertensive Patient has residual CAD Fixing LAD could likely improve symptoms Patient also has significant MR (Severe) Not a candidate for MV repair/replacement Will assess for [employer] eligibility Will d/w family for a frame changer plan Pulm: Pt extubation Comfortable O2 sat: 99 on 3 L O2 Hx of COPD Duonebs Q6H BLAKE Singulair 10mg PO HS GI: Trial of CLD - f/u results LFTs WNL /renal: I/Os: ~ - 2L balance on 06/20 Good urine output Monitor [id number]: Hx of RA - pt family reports Percocet use for pain - Percocet 5/325 1 tab PO Q4H PRN Prophylaxis Heparin 5000 units SC Q12 Pepcid 20mg PO daily SCDs
[2016-06-22] MEDS: Albuterol-Ipratrop 3 mg / 0.5 (3 ml) UD INH SCH ×4 (01:45→19:55)
[2016-06-22 06:35] LABS: CHLORIDE 102 mmol/L (98-107)
[2016-06-22 06:36] LABS: POTASSIUM 3.8 mmol/L (3.6-5.2); SODIUM 137 mmol/L (132-148)
[2016-06-22 06:38] LABS: ALB/GLOB RATIO 1.1 (1.0-2.1); ALKALINE PHOSPHATASE 75 U/L (38-126); AST/SGOT 19 U/L (14-36); BILIRUBIN,TOTAL 0.8 mg/dL (0.2-1.3); BLOOD UREA NITROGEN 26 mg/dL (7-17); CARBON DIOXIDE 22 mmol/L (22-30); GFR AFRICAN-AMERICAN > 60; GLUCOSE,RANDOM 94 mg/dL (65-105); PHOSPHOROUS 2.8 mg/dL (2.5-4.5); TOTAL PROTEIN 7.1 g/dL (6.3-8.3)
[2016-06-22 06:39] LABS: ALT/SGPT 7 U/L (9-52); CALCIUM 8.3 mg/dl (8.6-10.4); MAGNESIUM 1.8 mg/dL (1.6-2.3)
[2016-06-22 06:48] LABS: BASO # 0.1 K/uL (0.0-0.2); BASO % 1.3 % (0.0-2.0); EOS # 0.5 K/uL (0.0-0.7); EOS % 6.1 % (0.0-4.0); HEMATOCRIT 28.9 % (34.0-47.0); LYMPH # 1.9 K/uL (1.0-4.3); LYMPH % 23.9 % (20.0-40.0); MEAN CELL VOLUME 71.7 fL (81.0-99.0); MEAN CORPUSCULAR HEMOGLOBIN 22.6 pg (27.0-31.0); MEAN CORPUSCULAR HGB CONC 31.5 g/dL (33.0-37.0); MEAN PLATELET VOLUME 10.3 fL (7.2-11.7); MONO # 0.9 K/uL (0.0-0.8); MONO % 11.6 % (0.0-10.0); NRBC % 0.1 % (0.0-2.0); RED CELL DISTRIBUTION WIDTH 16.1 % (11.5-14.5); WHITE BLOOD COUNT 8.1 K/uL (4.8-10.8)
--- NOTE | 2016-06-22 07:02 | PN ---
DATE: 06/21/2016 The patient is improving, more stable. Extubated successfully. Discussed with cardiology, the patie nt may need to have stenting of the LAD ____. He will arrange for that after talking to family. Gisselle Vogel MD cc: [id number] TT: 06/21/2016 12:19:10 Confirmation # [id number] Dictation # [id number]
[2016-06-22] MEDS: Ranolazine 500 mg Extended Release Tablets PO SCH ×2 (10:22→17:57)
[2016-06-22] MEDS: Sodium Chloride 0.9% 1,000 ML IV SCH ×2 (12:30→15:41)
--- NOTE | 2016-06-22 13:06 | CP.CCUPN ---
<Otoniel Tolbert - Last Filed: 06/22/16 18:04> CCU Subjective - Physician Review Subjective (Free Text): 06/22/16 13:03 Pt seen and examined at bedside. Current O2 sat is 100% on 2L O2. Pt tolerated soft diet last night. Blood pressure improved today. Pt denies chest pain, palpitations, SOB on nasal cannula, abdominal pain, N/V/D/C. Critical Care Time Spent (in minutes): 40 CCU Objective - Vital Signs / Intake & Output Vital Signs (Last 4 hours): Vital Signs Pulse Resp BP Pulse Ox 06/22/16 11:00 94 H 19 118/56 L 94 L 06/22/16 10:00 89 20 114/64 93 L Intake and Output (Last 8hrs): Intake & Output 06/21/16 06/22/16 06/22/16 22:59 06:59 14:59 Intake Total 1303.5 587.2 692.0 Output Total 0 0 0 Balance 1303.5 587.2 692.0 Weight 98 lb 15.801 oz Intake: IV 0 0 0 Intake, IV Amount 1023.5 467.2 292.0 Left Distal Port Forearm 3.3 Left Forearm 850 left hand 20.2 67.2 42.0 right external jugular 150 400 250 vein Oral 280 120 400 Output: Stool 0 0 0 Other: # Voids Urine, Voided 0 0 - Physical Exam Head: Positive for: Atraumatic, Normocephalic Pupils: Positive for: PERRL Extroacular Muscles: Positive for: EOMI Conjunctiva: Positive for: Normal Mouth: Positive for: Moist Mucous Membranes Respiratory/Chest: Positive for: Accessory Muscle Use. Negative for: Respiratory Distress Cardiovascular: Positive for: Regular Rate and Rhythm, Normal S1, S2 Abdomen: Positive for: Normal Bowel Sounds. Negative for: Tenderness, Distention Upper Extremity: Positive for: Normal Inspection Lower Extremity: Positive for: Normal Inspection Neurological: Positive for: GCS=15, CN II-XII Intact, Speech Normal Skin: Positive for: Warm, Dry Psychiatric: Positive for: Alert, Oriented x 3 - Medications Active Medications: Active Medications Generic Name Dose Route Start Last Admin Trade Name Freq PRN Reason Stop Dose Admin Albuterol/Ipratropium 3 ml 06/19/16 14:00 04/26/17 09:48 Duoneb 3 Mg/0.5 Mg (3 Ml) Ud INH 3 ml RQ6 [facility] Administration Alprazolam 1 mg 06/20/16 10:00 06/21/16 23:34 Xanax PO 1 mg BID PRN Administration Anxiety Aspirin 325 mg 06/20/16 10:00 06/22/16 10:22 Aspirin PO 325 mg DAILY [facility] Administration Carvedilol 6.25 mg 06/19/16 18:00 06/21/16 09:38 Coreg PO 6.25 mg BID [facility] Administration Clopidogrel Bisulfate 75 mg 06/20/16 10:00 06/22/16 10:22 Plavix PO 75 mg DAILY [facility] Administration Escitalopram Oxalate 5 mg 06/20/16 10:00 06/22/16 10:22 Lexapro PO 5 mg DAILY [facility] Administration Famotidine 20 mg 06/19/16 18:00 06/22/16 10:22 Pepcid PO 20 mg DAILY [facility] Administration Furosemide 20 mg 06/21/16 16:30 Lasix IVP Q12H [facility] Heparin Sodium (Porcine) 5,000 units 06/20/16 10:00 06/22/16 10:21 Heparin SC 5,000 units Q12 [facility] Administration Sodium Chloride 1,000 mls @ 50 mls/hr 06/21/16 16:30 06/21/16 18:21 Sodium Chloride 0.9% IV 06/22/16 16:31 50 mls/hr .Q20H [facility] Administration Dopamine HCl/Dextrose 400 mg in 250 mls @ 3.368 mls/hr 06/21/16 20:01 07:10 Dopamine 400mg/250ml D5w IV 5 mcg/kg/min .Q24H PRN 8.42 mls/hr TITRATE PER MD ORDER Titration Protocol 2 MCG/KG/MIN Montelukast Sodium 10 mg 06/19/16 22:00 06/21/16 21:28 Singulair PO 10 mg HS [facility] Administration Oxycodone/Acetaminophen 1 tab 06/19/16 21:36 06/21/16 21:31 Percocet 5/325 Mg Tab PO 06/22/16 21:37 1 tab Q4H PRN Administration generalized pain Ranolazine 500 mg 06/19/16 18:00 06/22/16 10:22 Ranexa PO 500 mg BID [facility] Administration Rosuvastatin Calcium 10 mg 06/19/16 22:00 06/21/16 21:28 Crestor PO 10 mg HS [facility] Administration Sacubitril/Valsartan 1 tab 06/20/16 18:00 06/21/16 10:18 Entresto 24 Mg-26 Mg PO 1 tab BID [facility] Administration - Patient Studies Lab Studies: Microbiology Studies 06/19/16 19:00 MRSA Culture (Admit) - Final Naris MRSA NOT DETECTED Lab Studies 06/22/16 06/22/16 06/22/16 Range/Units 11:58 07:37 06:18 WBC (4.8-10.8) K/uL RBC (3.80-5.20) Mil/uL Hgb (11.0-16.0) g/dL Hct (34.0-47.0) % MCV (81.0-99.0) fL MCH (27.0-31.0) pg MCHC (33.0-37.0) g/dL RDW (11.5-14.5) % Plt Count (130-400) K/uL MPV (7.2-11.7) fL Neut % (Auto) (50.0-75.0) % Lymph % (Auto) (20.0-40.0) % King % (Auto) (0.0-10.0) % Eos % (Auto) (0.0-4.0) % Baso % (Auto) (0.0-2.0) % Neut # (1.8-7.0) K/uL Lymph # (1.0-4.3) K/uL King # (0.0-0.8) K/uL Eos # (0.0-0.7) K/uL Baso # (0.0-0.2) K/uL Sodium 137 (132-148) mmol/L Potassium 3.8 (3.6-5.2) mmol/L Chloride 102 (98-107) mmol/L Carbon Dioxide 22 (22-30) mmol/L Anion Gap 17 (10-20) BUN 26 H (7-17) mg/dL Creatinine 0.8 (0.7-1.2) MG/DL Est GFR ( Amer) > 60 Est GFR (Non-Af Amer) > 60 POC Glucose (mg/dL) 154 H 111 H (65-110) mg/dL Random Glucose 94 (65-105) mg/dL Calcium 8.3 L (8.6-10.4) mg/dl Phosphorus 2.8 (2.5-4.5) mg/dL Magnesium 1.8 (1.6-2.3) mg/dL Total Bilirubin 0.8 (0.2-1.3) mg/dL AST 19 (14-36) U/L ALT 7 L (9-52) U/L Alkaline Phosphatase 75 (38-126) U/L Total Protein 7.1 (6.3-8.3) g/dL Albumin 3.7 (3.5-5.0) g/dL Globulin 3.4 (2.2-3.9) gm/dL Albumin/Globulin Ratio 1.1 (1.0-2.1) 06/22/16 06/21/16 Range/Units 06:18 21:38 WBC 8.1 (4.8-10.8) K/uL RBC 4.04 (3.80-5.20) Mil/uL Hgb 9.1 L (11.0-16.0) g/dL Hct 28.9 L (34.0-47.0) % MCV 71.7 L (81.0-99.0) fL MCH 22.6 L (27.0-31.0) pg MCHC 31.5 L (33.0-37.0) g/dL RDW 16.1 H (11.5-14.5) % Plt Count 324 (130-400) K/uL MPV 10.3 (7.2-11.7) fL Neut % (Auto) 57.1 (50.0-75.0) % Lymph % (Auto) 23.9 (20.0-40.0) % King % (Auto) 11.6 H (0.0-10.0) % Eos % (Auto) 6.1 H (0.0-4.0) % Baso % (Auto) 1.3 (0.0-2.0) % Neut # 4.6 (1.8-7.0) K/uL Lymph # 1.9 (1.0-4.3) K/uL King # 0.9 H (0.0-0.8) K/uL Eos # 0.5 (0.0-0.7) K/uL Baso # 0.1 (0.0-0.2) K/uL Sodium (132-148) mmol/L Potassium (3.6-5.2) mmol/L Chloride (98-107) mmol/L Carbon Dioxide (22-30) mmol/L Anion Gap (10-20) BUN (7-17) mg/dL Creatinine (0.7-1.2) MG/DL Est GFR ( Amer) Est GFR (Non-Af Amer) POC Glucose (mg/dL) 126 H (65-110) mg/dL Random Glucose (65-105) mg/dL Calcium (8.6-10.4) mg/dl Phosphorus (2.5-4.5) mg/dL Magnesium (1.6-2.3) mg/dL Total Bilirubin (0.2-1.3) mg/dL AST (14-36) U/L ALT (9-52) U/L Alkaline Phosphatase (38-126) U/L Total Protein (6.3-8.3) g/dL Albumin (3.5-5.0) g/dL Globulin (2.2-3.9) gm/dL Albumin/Globulin Ratio (1.0-2.1) Laboratory Results - last 24 hr 06/21/16 06/22/16 06/22/16 21:38 06:18 06:18 WBC 8.1 RBC 4.04 Hgb 9.1 L Hct 28.9 L MCV 71.7 L MCH 22.6 L MCHC 31.5 L RDW 16.1 H Plt Count 324 MPV 10.3 Neut % (Auto) 57.1 Lymph % (Auto) 23.9 King % (Auto) 11.6 H Eos % (Auto) 6.1 H Baso % (Auto) 1.3 Neut # 4.6 Lymph # 1.9 King # 0.9 H Eos # 0.5 Baso # 0.1 Sodium 137 Potassium 3.8 Chloride 102 Carbon Dioxide 22 Anion Gap 17 BUN 26 H Creatinine 0.8 Est GFR ( Amer) > 60 Est GFR (Non-Af Amer) > 60 POC Glucose (mg/dL) 126 H Random Glucose 94 Calcium 8.3 L Phosphorus 2.8 Magnesium 1.8 Total Bilirubin 0.8 AST 19 ALT 7 L Alkaline Phosphatase 75 Total Protein 7.1 Albumin 3.7 Globulin 3.4 Albumin/Globulin Ratio 1.1 06/22/16 06/22/16 07:37 11:58 WBC RBC Hgb Hct MCV MCH MCHC RDW Plt Count MPV Neut % (Auto) Lymph % (Auto) King % (Auto) Eos % (Auto) Baso % (Auto) Neut # Lymph # King # Eos # Baso # Sodium Potassium Chloride Carbon Dioxide Anion Gap BUN Creatinine Est GFR ( Amer) Est GFR (Non-Af Amer) POC Glucose (mg/dL) 111 H 154 H Random Glucose Calcium Phosphorus Magnesium Total Bilirubin AST ALT Alkaline Phosphatase Total Protein Albumin Globulin Albumin/Globulin Ratio Fingerstick Blood Sugar Results: 111 Review of Systems - Constitutional Constitutional: absent: Fever, Chills - EENT Eyes: absent: Change in Vision Ears: absent: Decreased Hearing Nose/Mouth/Throat: absent: Nasal Congestion - Cardiovascular Cardiovascular: absent: Chest Pain, Chest Pain at Rest, Dyspnea - Respiratory Respiratory: absent: Cough, Chest Congestion - Gastrointestinal Gastrointestinal: absent: Abdominal Pain, Nausea, Vomiting - Genitourinary Genitourinary: absent: Dysuria - Musculoskeletal Musculoskeletal: absent: Back Pain, Numbness, Tingling - Integumentary Integumentary: absent: Wounds - Neurological Neurological: absent: Tingling, Weakness Critical Care Progress Note - Nutrition Nutrition: Nutrition Category Date Time Status Soft [Dysphagia/Modified Consistency Diet] [DIET] Diets 06/21/16 Lunch Active Assessment/Plan - Assessment and Plan (Free Text) Assessment: 81 year old female, with PMHx of CAD, HTN, CHF, COPD, RA, Anxiety, and Dementia. Pt presents for acute SOB. She was intubated in field by EMS, given 3SL NTG, and IV Lasix. This is her 6th admission for CHF/flash pulm edema in 2 months. Pt hypotensive yesterday/overnight so Entresto held. Plan: Pt status: Admit to ICU, Full code Neuro: AAOx3 Anxiety Xanax 1mg PO BID PRN Lexapro 5mg PO daily CV: CHF BNP 2260 (in line w. previous admission: 2790, 2960, 3500, 7510, 4380) CXR (06/19/16): Interval increased diffuse b/l infiltrates likely representing CH /pulm edema (see full report) CXR (06/21/16): Biapical pleural thickening with upper lobe granulomatous changes. Mild venous congestion. Mild patchy bibasilar airspace opacities. (see full report) Cardiac Cath (12/31/15): Severe 2-vessel CAD. Successful PCI at mid right coronary w. GARRY. Severe lt ventricular systolic dysfunction (see full report) Dr. Kelley - cardio consult - help appreciated ECHO (01/12)- Read as: 55% EF, severe MR, moderate to severe TR, moderate pulmonary HTN - Pt may benefit from mitral clip - no repeat necessary, but Dr. Kelley feels true EF is lower than as read - NM Muga scan for assessment of EF: Calculated EF of 32% ASA 325mg PO daily Coreg 6.25mg PO BID (hold) Plavix 75mg PO Daily Lasix 40mg IV Q12H Entresto 24/26 mg PO BID (hold) Ranolazine 500mg PO BID Hypotension - Dopamine Drip - Lasix reduced from 40mg Q12H to 20mg Q12H - Holding Coreg, Entresto Abnormal EKG EKG - Sinus tachycardia with PACs. Left axis deviation. LVH w. QRS widening and repolarization abnormality. Inferior infarct, age undetermined. History of CAD Lipid profile WNL (05/27 admission) ASA 325mg PO daily Crestor 10mg PO HS Pulm: Pt extubated yesterday O2 sat: 99 on 3 L O2 Hx of COPD Duonebs Q6H [facility] Singulair 10mg PO HS GI: ADAT: currently soft LFTs WNL /Renal: BUN/Cr WNL Monitor MSKLTL: Hx of RA - pt family reports Percocet use for pain - Percocet 5/325 1 tab PO Q4H PRN Prophylaxis Heparin 5000 units SC Q12 Pepcid 20mg PO daily SCDs <Rustam Villa S - Last Filed: 06/22/16 18:52> CCU Subjective - Physician Review Critical Care Time Spent (in minutes): 0 CCU Objective - Vital Signs / Intake & Output Vital Signs (Last 4 hours): Vital Signs Temp Pulse Resp BP Pulse Ox 06/22/16 18:00 96 H 18 112/56 L 97 06/22/16 17:00 82 18 117/61 97 04/26/17 16:00 97.9 F 87 20 110/56 L 98 06/22/16 15:00 72 20 91/54 L Intake and Output (Last 8hrs): Intake & Output 06/22/16 06/22/16 06/22/16 06:59 14:59 22:59 Intake Total 587.2 863.8 1576.8 Output Total 0 0 200 Balance 587.2 863.8 1376.8 Intake: IV 0 0 1000 Intake, IV Amount 467.2 463.8 226.8 left hand 67.2 63.8 26.8 right external jugular 400 400 200 vein Oral 120 400 350 Output: Urine 200 Urine, Voided 200 Stool 0 0 0 Other: # Voids Urine, Voided 0 1 - Medications Active Medications: Active Medications Generic Name Dose Route Start Last Admin Trade Name Freq PRN Reason Stop Dose Admin Albuterol/Ipratropium 3 ml 06/19/16 14:00 06/22/16 13:40 Duoneb 3 Mg/0.5 Mg (3 Ml) Ud INH 3 ml RQ6 [facility]LAKE Administration Alprazolam 1 mg 06/20/16 10:00 06/21/16 23:34 Xanax PO 1 mg BID PRN Administration Anxiety Aspirin 325 mg 06/20/16 10:00 06/22/16 10:22 Aspirin PO 325 mg DAILY BLAKE Administration Carvedilol 6.25 mg 06/19/16 18:00 06/21/16 09:38 Coreg PO 6.25 mg BID BLAKE Administration Clopidogrel Bisulfate 75 mg 06/20/16 10:00 06/22/16 10:22 Plavix PO 75 mg DAILY BLAKE Administration Escitalopram Oxalate 5 mg 06/20/16 10:00 06/22/16 10:22 Lexapro PO 5 mg DAILY BLAKE Administration Famotidine 20 mg 06/19/16 18:00 06/22/16 10:22 Pepcid PO 20 mg DAILY [facility]LA[facility] Administration Furosemide 20 mg 06/21/16 16:30 Lasix IVP Q12H [facility] Heparin Sodium (Porcine) 5,000 units 06/20/16 10:00 06/22/16 10:21 Heparin SC 5,000 units Q12 [facility] Administration Dopamine HCl/Dextrose 400 mg in 250 mls @ 3.368 mls/hr 06/21/16 20:01 13:00 Dopamine 400mg/250ml D5w IV 4 mcg/kg/min .Q24H PRN 6.736 mls/hr TITRATE PER MD ORDER Titration Protocol 2 MCG/KG/MIN Montelukast Sodium 10 mg 06/19/16 22:00 06/21/16 21:28 Singulair PO 10 mg HS BLAKE Administration Oxycodone/Acetaminophen 1 tab 06/19/16 21:36 06/22/16 18:04 Percocet 5/325 Mg Tab PO 06/22/16 21:37 1 tab Q4H PRN Administration generalized pain Ranolazine 500 mg 06/19/16 18:00 06/22/16 17:57 Ranexa PO 500 mg BID [facility] Administration Rosuvastatin Calcium 10 mg 06/19/16 22:00 06/21/16 21:28 Crestor PO 10 mg HS BLAKE Administration Sacubitril/Valsartan 1 tab 06/20/16 18:00 06/21/16 10:18 Entresto 24 Mg-26 Mg PO 1 tab BID BLAKE Administration - Patient Studies Lab Studies: Lab Studies 06/22/16 06/22/16 06/22/16 Range/Units 16:30 11:58 07:37 WBC (4.8-10.8) K/uL RBC (3.80-5.20) Mil/uL Hgb (11.0-16.0) g/dL Hct (34.0-47.0) % MCV (81.0-99.0) fL MCH (27.0-31.0) pg MCHC (33.0-37.0) g/dL RDW (11.5-14.5) % Plt Count (130-400) K/uL MPV (7.2-11.7) fL Neut % (Auto) (50.0-75.0) % Lymph % (Auto) (20.0-40.0) % King % (Auto) (0.0-10.0) % Eos % (Auto) (0.0-4.0) % Baso % (Auto) (0.0-2.0) % Neut # (1.8-7.0) K/uL Lymph # (1.0-4.3) K/uL King # (0.0-0.8) K/uL Eos # (0.0-0.7) K/uL Baso # (0.0-0.2) K/uL Sodium (132-148) mmol/L Potassium (3.6-5.2) mmol/L Chloride (98-107) mmol/L Carbon Dioxide (22-30) mmol/L Anion Gap (10-20) BUN (7-17) mg/dL Creatinine (0.7-1.2) MG/DL Est GFR ( Amer) Est GFR (Non-Af Amer) POC Glucose (mg/dL) 120 H 154 H 111 H (65-110) mg/dL Random Glucose (65-105) mg/dL Calcium (8.6-10.4) mg/dl Phosphorus (2.5-4.5) mg/dL Magnesium (1.6-2.3) mg/dL Total Bilirubin (0.2-1.3) mg/dL AST (14-36) U/L ALT (9-52) U/L Alkaline Phosphatase (38-126) U/L Total Protein (6.3-8.3) g/dL Albumin (3.5-5.0) g/dL Globulin (2.2-3.9) gm/dL Albumin/Globulin Ratio (1.0-2.1) 06/22/16 06/22/16 06/21/16 Range/Units 06:18 06:18 21:38 WBC 8.1 (4.8-10.8) K/uL RBC 4.04 (3.80-5.20) Mil/uL Hgb 9.1 L (11.0-16.0) g/dL Hct 28.9 L (34.0-47.0) % MCV 71.7 L (81.0-99.0) fL MCH 22.6 L (27.0-31.0) pg MCHC 31.5 L (33.0-37.0) g/dL RDW 16.1 H (11.5-14.5) % Plt Count 324 (130-400) K/uL MPV 10.3 (7.2-11.7) fL Neut % (Auto) 57.1 (50.0-75.0) % Lymph % (Auto) 23.9 (20.0-40.0) % King % (Auto) 11.6 H (0.0-10.0) % Eos % (Auto) 6.1 H (0.0-4.0) % Baso % (Auto) 1.3 (0.0-2.0) % Neut # 4.6 (1.8-7.0) K/uL Lymph # 1.9 (1.0-4.3) K/uL King # 0.9 H (0.0-0.8) K/uL Eos # 0.5 (0.0-0.7) K/uL Baso # 0.1 (0.0-0.2) K/uL Sodium 137 (132-148) mmol/L Potassium 3.8 (3.6-5.2) mmol/L Chloride 102 (98-107) mmol/L Carbon Dioxide 22 (22-30) mmol/L Anion Gap 17 (10-20) BUN 26 H (7-17) mg/dL Creatinine 0.8 (0.7-1.2) MG/DL Est GFR ( Amer) > 60 Est GFR (Non-Af Amer) > 60 POC Glucose (mg/dL) 126 H (65-110) mg/dL Random Glucose 94 (65-105) mg/dL Calcium 8.3 L (8.6-10.4) mg/dl Phosphorus 2.8 (2.5-4.5) mg/dL Magnesium 1.8 (1.6-2.3) mg/dL Total Bilirubin 0.8 (0.2-1.3) mg/dL AST 19 (14-36) U/L ALT 7 L (9-52) U/L Alkaline Phosphatase 75 (38-126) U/L Total Protein 7.1 (6.3-8.3) g/dL Albumin 3.7 (3.5-5.0) g/dL Globulin 3.4 (2.2-3.9) gm/dL Albumin/Globulin Ratio 1.1 (1.0-2.1) Laboratory Results - last 24 hr 06/21/16 06/22/16 06/22/16 21:38 06:18 06:18 WBC 8.1 RBC 4.04 Hgb 9.1 L Hct 28.9 L MCV 71.7 L MCH 22.6 L MCHC 31.5 L RDW 16.1 H Plt Count 324 MPV 10.3 Neut % (Auto) 57.1 Lymph % (Auto) 23.9 King % (Auto) 11.6 H Eos % (Auto) 6.1 H Baso % (Auto) 1.3 Neut # 4.6 Lymph # 1.9 King # 0.9 H Eos # 0.5 Baso # 0.1 Sodium 137 Potassium 3.8 Chloride 102 Carbon Dioxide 22 Anion Gap 17 BUN 26 H Creatinine 0.8 Est GFR ( Amer) > 60 Est GFR (Non-Af Amer) > 60 POC Glucose (mg/dL) 126 H Random Glucose 94 Calcium 8.3 L Phosphorus 2.8 Magnesium 1.8 Total Bilirubin 0.8 AST 19 ALT 7 L Alkaline Phosphatase 75 Total Protein 7.1 Albumin 3.7 Globulin 3.4 Albumin/Globulin Ratio 1.1 06/22/16 06/22/16 06/22/16 07:37 11:58 16:30 WBC RBC Hgb Hct MCV MCH MCHC RDW Plt Count MPV Neut % (Auto) Lymph % (Auto) King % (Auto) Eos % (Auto) Baso % (Auto) Neut # Lymph # King # Eos # Baso # Sodium Potassium Chloride Carbon Dioxide Anion Gap BUN Creatinine Est GFR ( Amer) Est GFR (Non-Af Amer) POC Glucose (mg/dL) 111 H 154 H 120 H Random Glucose Calcium Phosphorus Magnesium Total Bilirubin AST ALT Alkaline Phosphatase Total Protein Albumin Globulin Albumin/Globulin Ratio Critical Care Progress Note - Nutrition Nutrition: Nutrition Category Date Time Status Soft [Dysphagia/Modified Consistency Diet] [DIET] Diets 06/21/16 Lunch Active Attending/Attestation - Attestation I have personally seen and examined this patient.: Yes I have fully participated in the care of the patient.: Yes I have reviewed all pertinent clinical information: Yes Notes (Text): 06/22/16 18:51 Patient seen and examined in the intensive care unit. Breathing much improved more awake and responsive On low dose pressors and taper off as tolerated
[2016-06-22] MEDS: Oxycodone/Acetaminophen 5/325 mg Tab PO PRN (18:04)
--- NOTE | 2016-06-22 23:05 | CP.PCM.PN ---
Subjective - Date & Time of Evaluation Date of Evaluation: 06/22/16 Time of Evaluation: 13:15 - Subjective Subjective: Patient seen and evaluated Comfortable Objective - Vital Signs/Intake and Output Vital Signs (last 24 hours): Temp Pulse Resp BP Pulse Ox 97.9 F 87 20 104/58 L 97 06/22/16 20:00 06/22/16 22:00 06/22/16 22:00 06/22/16 22:00 06/22/16 22:00 Intake and Output: 06/22/16 06/23/16 18:59 06:59 Intake Total 2440.6 342.0 Output Total 200 Balance 2240.6 342.0 - Medications Medications: Current Medications Albuterol/Ipratropium (Duoneb 3 Mg/0.5 Mg (3 Ml) Ud) 3 ml INH RQ6 [facility] Last Admin: 06/22/16 19:55 Dose: 3 ml Alprazolam (Xanax) 1 mg PO BID PRN PRN Reason: Anxiety Last Admin: 06/21/16 23:34 Dose: 1 mg Aspirin (Aspirin) 325 mg PO DAILY [facility] Last Admin: 06/22/16 10:22 Dose: 325 mg Carvedilol (Coreg) 6.25 mg PO BID [facility] Last Admin: 06/21/16 09:38 Dose: 6.25 mg Clopidogrel Bisulfate (Plavix) 75 mg PO DAILY [facility] Last Admin: 06/22/16 10:22 Dose: 75 mg Escitalopram Oxalate (Lexapro) 5 mg PO DAILY [facility] Last Admin: 06/22/16 10:22 Dose: 5 mg Famotidine (Pepcid) 20 mg PO DAILY [facility] Last Admin: 06/22/16 10:22 Dose: 20 mg Furosemide (Lasix) 20 mg IVP Q12H [facility] Heparin Sodium (Porcine) (Heparin) 5,000 units SC Q12 [facility] Last Admin: 06/22/16 21:28 Dose: 5,000 units Dopamine HCl/Dextrose (Dopamine 400mg/250ml D5w) 400 mg in 250 mls @ 3.368 mls/ hr IV .Q24H PRN; Protocol; 2 MCG/KG/MIN PRN Reason: TITRATE PER MD ORDER Last Titration: 06/22/16 20:00 Dose: 3 mcg/kg/min, 5.052 mls/hr Montelukast Sodium (Singulair) 10 mg PO [facility] Last Admin: 06/22/16 21:28 Dose: 10 mg Ranolazine (Ranexa) 500 mg PO BID [facility] Last Admin: 06/22/16 17:57 Dose: 500 mg Rosuvastatin Calcium (Crestor) 10 mg PO HS [facility] Last Admin: 06/22/16 21:28 Dose: 10 mg Sacubitril/Valsartan (Entresto 24 Mg-26 Mg) 1 tab PO BID [facility] Last Admin: 06/21/16 10:18 Dose: 1 tab - Labs Labs: 06/22/16 06:18 06/22/16 06:18 PT 15.1 SECONDS (9.7-12.2) H 06/19/16 10:11 INR 1.3 06/19/16 10:11 APTT 28 SECONDS (21-34) 06/19/16 10:11
[2016-06-23] MEDS: Albuterol-Ipratrop 3 mg / 0.5 (3 ml) UD INH SCH ×4 (01:24→20:20)
[2016-06-23 06:46] LABS: BASO # 0.1 K/uL (0.0-0.2); BASO % 1.4 % (0.0-2.0); EOS # 0.4 K/uL (0.0-0.7); EOS % 6.6 % (0.0-4.0); HEMATOCRIT 27.3 % (34.0-47.0); LYMPH % 31.4 % (20.0-40.0); MEAN CELL VOLUME 71.8 fL (81.0-99.0); MEAN CORPUSCULAR HEMOGLOBIN 23.1 pg (27.0-31.0); MEAN CORPUSCULAR HGB CONC 32.2 g/dL (33.0-37.0); MEAN PLATELET VOLUME 10.1 fL (7.2-11.7); MONO # 0.6 K/uL (0.0-0.8); MONO % 9.2 % (0.0-10.0); NRBC % 0.3 % (0.0-2.0); RED CELL DISTRIBUTION WIDTH 16.4 % (11.5-14.5); WHITE BLOOD COUNT 6.5 K/uL (4.8-10.8)
[2016-06-23 06:50] LABS: CHLORIDE 107 mmol/L (98-107); POTASSIUM 4.2 mmol/L (3.6-5.2); SODIUM 138 mmol/L (132-148)
--- NOTE | 2016-06-23 06:51 | CP.CCUPN ---
<Dwain Tolbertic - Last Filed: 06/23/16 12:27> CCU Subjective - Physician Review Subjective (Free Text): 06/23/16 12:18 Pt seen and examined at bedside. This AM, she was found SOB with rales throughout lung field. O2 was desaturating to the high 80's. Lasix and chest xray were ordered. She was started on bipap. Pt admits anxiety but felt relief after taking her home xanax. She denies chest pain, palpitations, abdominal pain , N/V/D/C. She is tolerating soft diet without issue. Critical Care Time Spent (in minutes): 40 CCU Objective - Vital Signs / Intake & Output Vital Signs (Last 4 hours): Vital Signs Temp Pulse Resp BP Pulse Ox 06/23/16 04:00 97.5 F L 80 18 121/55 L 94 L 06/23/16 03:00 83 20 115/64 95 Intake and Output (Last 8hrs): Intake & Output 06/22/16 06/22/16 06/23/16 14:59 22:59 06:59 Intake Total 863.8 1918.8 372.1 Output Total 0 200 300 Balance 863.8 1718.8 72.1 Intake: IV 0 1000 0 Intake, IV Amount 463.8 448.8 322.1 left hand 63.8 48.8 22.1 right external jugular 400 400 300 vein Oral 400 470 50 Output: Urine 200 300 Urine, Voided 200 300 Stool 0 0 Other: # Voids Urine, Voided 0 0 # Bowel Movements 0 0 - Physical Exam Head: Positive for: Atraumatic, Normocephalic Pupils: Positive for: PERRL Extroacular Muscles: Positive for: EOMI Conjunctiva: Positive for: Normal Mouth: Positive for: Moist Mucous Membranes Respiratory/Chest: Positive for: Accessory Muscle Use, Rales, Rhonchi, Tachypneic. Negative for: Clear to Auscultation, Respiratory Distress Cardiovascular: Positive for: Regular Rate and Rhythm, Normal S1, S2 Abdomen: Positive for: Normal Bowel Sounds. Negative for: Tenderness, Distention, Rebound, Guarding Upper Extremity: Positive for: Normal Inspection Lower Extremity: Positive for: Normal Inspection Neurological: Positive for: GCS=15, CN II-XII Intact, Speech Normal Skin: Positive for: Warm, Dry Psychiatric: Positive for: Alert, Oriented x 3 - Medications Active Medications: Active Medications Generic Name Dose Route Start Last Admin Trade Name Freq PRN Reason Stop Dose Admin Albuterol/Ipratropium 3 ml 06/19/16 14:00 06/23/16 01:24 Duoneb 3 Mg/0.5 Mg (3 Ml) Ud INH Not Given RQ6 BLAKE Alprazolam 1 mg 06/20/16 10:00 06/21/16 23:34 Xanax PO 1 mg BID PRN Administration Anxiety Aspirin 325 mg 06/20/16 10:00 06/22/16 10:22 Aspirin PO 325 mg DAILY BLAKE Administration Carvedilol 6.25 mg 06/19/16 18:00 06/21/16 09:38 Coreg PO 6.25 mg BID BLAKE Administration Clopidogrel Bisulfate 75 mg 06/20/16 10:00 06/22/16 10:22 Plavix PO 75 mg DAILY BLAKE Administration Escitalopram Oxalate 5 mg 06/20/16 10:00 06/22/16 10:22 Lexapro PO 5 mg DAILY BLAKE Administration Famotidine 20 mg 06/19/16 18:00 06/22/16 10:22 Pepcid PO 20 mg DAILY BLAKE Administration Furosemide 20 mg 06/21/16 16:30 Lasix IVP Q12H [facility] Heparin Sodium (Porcine) 5,000 units 06/20/16 10:00 06/22/16 21:28 Heparin SC 5,000 units Q12 BLAKE Administration Dopamine HCl/Dextrose 400 mg in 250 mls @ 3.368 mls/hr 06/21/16 20:01 04:25 Dopamine 400mg/250ml D5w IV 0 mcg/kg/min .Q24H PRN 0 mls/hr TITRATE PER MD ORDER Titration Protocol 2 MCG/KG/MIN Montelukast Sodium 10 mg 06/19/16 22:00 06/22/16 21:28 Singulair PO 10 mg HS BLAKE Administration Ranolazine 500 mg 06/19/16 18:00 06/22/16 17:57 Ranexa PO 500 mg BID BLAKE Administration Rosuvastatin Calcium 10 mg 06/19/16 22:00 06/22/16 21:28 Crestor PO 10 mg HS BLAKE Administration Sacubitril/Valsartan 1 tab 06/20/16 18:00 06/21/16 10:18 Entresto 24 Mg-26 Mg PO 1 tab BID BLAKE Administration - Patient Studies Lab Studies: Lab Studies 06/23/16 06/22/16 06/22/16 Range/Units 06:15 16:30 11:58 WBC 6.5 (4.8-10.8) K/uL RBC 3.80 (3.80-5.20) Mil/uL Hgb 8.8 L (11.0-16.0) g/dL Hct 27.3 L (34.0-47.0) % MCV 71.8 L (81.0-99.0) fL MCH 23.1 L (27.0-31.0) pg MCHC 32.2 L (33.0-37.0) g/dL RDW 16.4 H (11.5-14.5) % Plt Count 300 (130-400) K/uL MPV 10.1 (7.2-11.7) fL Neut % (Auto) 51.4 (50.0-75.0) % Lymph % (Auto) 31.4 (20.0-40.0) % [place] % (Auto) 9.2 (0.0-10.0) % Eos % (Auto) 6.6 H (0.0-4.0) % Baso % (Auto) 1.4 (0.0-2.0) % Neut # 3.4 (1.8-7.0) K/uL Lymph # 2.0 (1.0-4.3) K/uL [place] # 0.6 (0.0-0.8) K/uL Eos # 0.4 (0.0-0.7) K/uL Baso # 0.1 (0.0-0.2) K/uL POC Glucose (mg/dL) 120 H 154 H (65-110) mg/dL 06/22/16 06/22/16 Range/Units 07:37 06:18 WBC 8.1 (4.8-10.8) K/uL RBC 4.04 (3.80-5.20) Mil/uL Hgb 9.1 L (11.0-16.0) g/dL Hct 28.9 L (34.0-47.0) % MCV 71.7 L (81.0-99.0) fL MCH 22.6 L (27.0-31.0) pg MCHC 31.5 L (33.0-37.0) g/dL RDW 16.1 H (11.5-14.5) % Plt Count 324 (130-400) K/uL MPV 10.3 (7.2-11.7) fL Neut % (Auto) 57.1 (50.0-75.0) % Lymph % (Auto) 23.9 (20.0-40.0) % [place] % (Auto) 11.6 H (0.0-10.0) % Eos % (Auto) 6.1 H (0.0-4.0) % Baso % (Auto) 1.3 (0.0-2.0) % Neut # 4.6 (1.8-7.0) K/uL Lymph # 1.9 (1.0-4.3) K/uL [place] # 0.9 H (0.0-0.8) K/uL Eos # 0.5 (0.0-0.7) K/uL Baso # 0.1 (0.0-0.2) K/uL POC Glucose (mg/dL) 111 H (65-110) mg/dL Laboratory Results - last 24 hr 06/22/16 06/22/16 06/22/16 06:18 07:37 11:58 WBC 8.1 RBC 4.04 Hgb 9.1 L Hct 28.9 L MCV 71.7 L MCH 22.6 L MCHC 31.5 L RDW 16.1 H Plt Count 324 MPV 10.3 Neut % (Auto) 57.1 Lymph % (Auto) 23.9 [place] % (Auto) 11.6 H Eos % (Auto) 6.1 H Baso % (Auto) 1.3 Neut # 4.6 Lymph # 1.9 [place] # 0.9 H Eos # 0.5 Baso # 0.1 POC Glucose (mg/dL) 111 H 154 H 06/22/16 06/23/16 16:30 06:15 WBC 6.5 RBC 3.80 Hgb 8.8 L Hct 27.3 L MCV 71.8 L MCH 23.1 L MCHC 32.2 L RDW 16.4 H Plt Count 300 MPV 10.1 Neut % (Auto) 51.4 Lymph % (Auto) 31.4 [place] % (Auto) 9.2 Eos % (Auto) 6.6 H Baso % (Auto) 1.4 Neut # 3.4 Lymph # 2.0 [place] # 0.6 Eos # 0.4 Baso # 0.1 POC Glucose (mg/dL) 120 H Fingerstick Blood Sugar Results: 111 Review of Systems - Constitutional Constitutional: absent: Fever, Chills - EENT Eyes: absent: Change in Vision Ears: absent: Decreased Hearing Nose/Mouth/Throat: absent: Nasal Discharge - Cardiovascular Cardiovascular: Dyspnea. absent: Chest Pain - Respiratory Respiratory: Dyspnea. absent: Hemoptysis, Wheezing - Gastrointestinal Gastrointestinal: absent: Abdominal Pain, Nausea, Vomiting - Genitourinary Genitourinary: Urinary Frequency (pt restarted on lasix) - Musculoskeletal Musculoskeletal: absent: Numbness, Tingling - Neurological Neurological: absent: Confusion, Weakness - Psychiatric Psychiatric: Anxiety Critical Care Progress Note - Nutrition Nutrition: Nutrition Category Date Time Status Soft [Dysphagia/Modified Consistency Diet] [DIET] Diets 06/21/16 Lunch Active Assessment/Plan - Assessment and Plan (Free Text) Assessment: 81 year old female, with PMHx of CAD, HTN, CHF, COPD, RA, Anxiety, and Dementia. Pt presents for acute SOB. She was intubated in field by EMS, given 3SL NTG, and IV Lasix. This is her 6th admission for CHF/flash pulm edema in 2 months. Pt started on Entresto but held due to hypotension. Plan: Pt status: Admit to ICU, Full code Neuro: AAOx3 Anxiety Xanax 1mg PO BID PRN Lexapro 5mg PO daily CV: CHF BNP 2260 (in line w. previous admission: 2790, 2960, 3500, 7510, 4380) CXR (06/19/16): Interval increased diffuse b/l infiltrates likely representing CH /pulm edema (see full report) CXR (06/21/16): Biapical pleural thickening with upper lobe granulomatous changes. Mild venous congestion. Mild patchy bibasilar airspace opacities. (see full report) Cardiac Cath (12/31/15): Severe 2-vessel CAD. Successful PCI at mid right coronary w. GARRY. Severe lt ventricular systolic dysfunction (see full report) Dr. Kelley - cardio consult - help appreciated ECHO (01/12)- Read as: 55% EF, severe MR, moderate to severe TR, moderate pulmonary HTN - Pt may benefit from mitral clip - no repeat necessary, but Dr. Kelley feels true EF is lower than as read - NM Muga scan for assessment of EF: Calculated EF of 32% ASA 325mg PO daily Coreg 6.25mg PO BID (hold) Plavix 75mg PO Daily Lasix 40mg IV Q12H Ranolazine 500mg PO BID Discontinued Entresto - Restart Losartan 25mg PO Daily Hypotension - resolved, no longer on pressors - Holding Coreg, Entresto Abnormal EKG EKG - Sinus tachycardia with PACs. Left axis deviation. LVH w. QRS widening and repolarization abnormality. Inferior infarct, age undetermined. History of CAD Lipid profile WNL (05/27 admission) ASA 325mg PO daily Crestor 10mg PO HS Pulm: Pt extubated on 06/21 Pt with fluid overload on 06/23 Lasix 40mg IV STAT Lasix 20mg IV Q12H O2 sat: 99 on 3 L O2 Hx of COPD Duonebs Q6H BLAKE Singulair 10mg PO HS GI: ADAT: currently soft LFTs WNL /Renal: BUN/Cr WNL Monitor MSKLTL: Hx of RA - pt family reports Percocet use for pain - Percocet 5/325 1 tab PO Q4H PRN Prophylaxis Heparin 5000 units SC Q12 Pepcid 20mg PO daily SCDs <Marybeth Loredo - Last Filed: 06/23/16 14:10> CCU Objective - Vital Signs / Intake & Output Vital Signs (Last 4 hours): Vital Signs Pulse Resp BP Pulse Ox 06/23/16 13:54 72 06/23/16 12:00 72 24 100 06/23/16 11:00 76 25 H 100 06/23/16 10:59 77 25 H 117/65 100 Intake and Output (Last 8hrs): Intake & Output 06/22/16 06/23/16 06/23/16 22:59 06:59 14:59 Intake Total 1918.8 522.1 50 Output Total 200 300 Balance 1718.8 222.1 50 Weight 101 lb Intake: IV 1000 0 Intake, IV Amount 448.8 422.1 50 left hand 48.8 22.1 0 right external jugular 400 400 50 vein Oral 470 100 0 Output: Urine 200 300 Urine, Voided 200 300 Stool 0 Other: # Voids Urine, Voided 0 0 # Bowel Movements 0 0 - Medications Active Medications: Active Medications Generic Name Dose Route Start Last Admin Trade Name Freq PRN Reason Stop Dose Admin Albuterol/Ipratropium 3 ml 06/19/16 14:00 06/23/16 13:53 Duoneb 3 Mg/0.5 Mg (3 Ml) Ud INH 3 ml RQ6 BLAKE Administration Alprazolam 0.25 mg 06/24/16 10:00 Xanax PO 07/01/16 10:01 DAILY BLAKE Aspirin 325 mg 06/20/16 10:00 06/23/16 09:55 Aspirin PO 325 mg DAILY [facility] Administration Carvedilol 6.25 mg 06/19/16 18:00 06/21/16 09:38 Coreg PO 6.25 mg BID BLAKE Administration Clopidogrel Bisulfate 75 mg 06/20/16 10:00 06/23/16 09:55 Plavix PO 75 mg DAILY [facility] Administration Escitalopram Oxalate 5 mg 06/20/16 10:00 06/23/16 09:55 Lexapro PO 5 mg DAILY [facility] Administration Famotidine 20 mg 06/19/16 18:00 06/23/16 09:55 Pepcid PO 20 mg DAILY BLAKE Administration Furosemide 20 mg 06/21/16 16:30 Lasix IVP Q12H [facility] Losartan Potassium 25 mg 06/24/16 10:00 Cozaar PO DAILY [facility] Montelukast Sodium 10 mg 06/19/16 22:00 06/22/16 21:28 Singulair PO 10 mg HS [facility] Administration Ranolazine 500 mg 06/19/16 18:00 06/23/16 09:55 Ranexa PO 500 mg BID [facility] Administration Rosuvastatin Calcium 10 mg 06/19/16 22:00 06/22/16 21:28 Crestor PO 10 mg HS [facility] Administration - Patient Studies Lab Studies: Lab Studies 06/23/16 06/23/16 06/23/16 Range/Units 11:21 11:15 08:11 WBC (4.8-10.8) K/uL RBC (3.80-5.20) Mil/uL Hgb (11.0-16.0) g/dL Hct (34.0-47.0) % MCV (81.0-99.0) fL MCH (27.0-31.0) pg MCHC (33.0-37.0) g/dL RDW (11.5-14.5) % Plt Count (130-400) K/uL MPV (7.2-11.7) fL Neut % (Auto) (50.0-75.0) % Lymph % (Auto) (20.0-40.0) % [place] % (Auto) (0.0-10.0) % Eos % (Auto) (0.0-4.0) % Baso % (Auto) (0.0-2.0) % Neut # (1.8-7.0) K/uL Lymph # (1.0-4.3) K/uL [place] # (0.0-0.8) K/uL Eos # (0.0-0.7) K/uL Baso # (0.0-0.2) K/uL Puncture Site Rb pCO2 29 L (35-45) mm/Hg pO2 190 H (80-100) mm/Hg HCO3 22.5 (21-28) mmol/L ABG pH 7.45 (7.35-7.45) ABG Total CO2 21.1 L (22-28) mmol/L ABG O2 Saturation 99.0 H (95-98) % ABG Base Excess -3.1 L (-2.0-3.0) mmol/L ABG Hemoglobin 9.3 L (11.7-17.4) g/dL ABG Carboxyhemoglobin 1.0 (0.5-1.5) % POC ABG HHb (Measured) 1.0 (0.0-5.0) % ABG Methemoglobin 0.5 (0.0-3.0) % Gael Test Na A-a O2 Difference 130.0 mm/Hg Respiratory Index 0.7 Hgb O2 Saturation 97.5 (95.0-98.0) % FiO2 50.0 % Inspiratory BiPAP 12 Expiratory BiPAP 6 Sodium (132-148) mmol/L Potassium (3.6-5.2) mmol/L Chloride (98-107) mmol/L Carbon Dioxide (22-30) mmol/L Anion Gap (10-20) BUN (7-17) mg/dL Creatinine (0.7-1.2) MG/DL Est GFR ( Amer) Est GFR (Non-Af Amer) POC Glucose (mg/dL) 110 197 H (65-110) mg/dL Random Glucose (65-105) mg/dL Calcium (8.6-10.4) mg/dl Phosphorus (2.5-4.5) mg/dL Magnesium (1.6-2.3) mg/dL Total Bilirubin (0.2-1.3) mg/dL AST (14-36) U/L ALT (9-52) U/L Alkaline Phosphatase (38-126) U/L Total Protein (6.3-8.3) g/dL Albumin (3.5-5.0) g/dL Globulin (2.2-3.9) gm/dL Albumin/Globulin Ratio (1.0-2.1) 06/23/16 06/23/16 06/22/16 Range/Units 06:15 06:15 16:30 WBC 6.5 (4.8-10.8) K/uL RBC 3.80 (3.80-5.20) Mil/uL Hgb 8.8 L (11.0-16.0) g/dL Hct 27.3 L (34.0-47.0) % MCV 71.8 L (81.0-99.0) fL MCH 23.1 L (27.0-31.0) pg MCHC 32.2 L (33.0-37.0) g/dL RDW 16.4 H (11.5-14.5) % Plt Count 300 (130-400) K/uL MPV 10.1 (7.2-11.7) fL Neut % (Auto) 51.4 (50.0-75.0) % Lymph % (Auto) 31.4 (20.0-40.0) % [place] % (Auto) 9.2 (0.0-10.0) % Eos % (Auto) 6.6 H (0.0-4.0) % Baso % (Auto) 1.4 (0.0-2.0) % Neut # 3.4 (1.8-7.0) K/uL Lymph # 2.0 (1.0-4.3) K/uL [place] # 0.6 (0.0-0.8) K/uL Eos # 0.4 (0.0-0.7) K/uL Baso # 0.1 (0.0-0.2) K/uL Puncture Site pCO2 (35-45) mm/Hg pO2 (80-100) mm/Hg HCO3 (21-28) mmol/L ABG pH (7.35-7.45) ABG Total CO2 (22-28) mmol/L ABG O2 Saturation (95-98) % ABG Base Excess (-2.0-3.0) mmol/L ABG Hemoglobin (11.7-17.4) g/dL ABG Carboxyhemoglobin (0.5-1.5) % POC ABG HHb (Measured) (0.0-5.0) % ABG Methemoglobin (0.0-3.0) % Gael Test A-a O2 Difference mm/Hg Respiratory Index Hgb O2 Saturation (95.0-98.0) % FiO2 % Inspiratory BiPAP Expiratory BiPAP Sodium 138 (132-148) mmol/L Potassium 4.2 (3.6-5.2) mmol/L Chloride 107 (98-107) mmol/L Carbon Dioxide 17 L (22-30) mmol/L Anion Gap 18 (10-20) BUN 14 (7-17) mg/dL Creatinine 0.6 L (0.7-1.2) MG/DL Est GFR ( Amer) > 60 Est GFR (Non-Af Amer) > 60 POC Glucose (mg/dL) 120 H (65-110) mg/dL Random Glucose 86 (65-105) mg/dL Calcium 7.8 L (8.6-10.4) mg/dl Phosphorus 2.8 (2.5-4.5) mg/dL Magnesium 1.7 (1.6-2.3) mg/dL Total Bilirubin 1.0 (0.2-1.3) mg/dL AST 33 (14-36) U/L ALT < 6 L (9-52) U/L Alkaline Phosphatase 61 (38-126) U/L Total Protein 6.5 (6.3-8.3) g/dL Albumin 3.2 L (3.5-5.0) g/dL Globulin 3.3 (2.2-3.9) gm/dL Albumin/Globulin Ratio 1.0 (1.0-2.1) Laboratory Results - last 24 hr 06/22/16 06/23/16 06/23/16 16:30 06:15 06:15 WBC 6.5 RBC 3.80 Hgb 8.8 L Hct 27.3 L MCV 71.8 L MCH 23.1 L MCHC 32.2 L RDW 16.4 H Plt Count 300 MPV 10.1 Neut % (Auto) 51.4 Lymph % (Auto) 31.4 [place] % (Auto) 9.2 Eos % (Auto) 6.6 H Baso % (Auto) 1.4 Neut # 3.4 Lymph # 2.0 [place] # 0.6 Eos # 0.4 Baso # 0.1 Puncture Site pCO2 pO2 HCO3 ABG pH ABG Total CO2 ABG O2 Saturation ABG Base Excess ABG Hemoglobin ABG Carboxyhemoglobin POC ABG HHb (Measured) ABG Methemoglobin Gael Test A-a O2 Difference Respiratory Index Hgb O2 Saturation FiO2 Inspiratory BiPAP Expiratory BiPAP Sodium 138 Potassium 4.2 Chloride 107 Carbon Dioxide 17 L Anion Gap 18 BUN 14 Creatinine 0.6 L Est GFR ( Amer) > 60 Est GFR (Non-Af Amer) > 60 POC Glucose (mg/dL) 120 H Random Glucose 86 Calcium 7.8 L Phosphorus 2.8 Magnesium 1.7 Total Bilirubin 1.0 AST 33 ALT < 6 L Alkaline Phosphatase 61 Total Protein 6.5 Albumin 3.2 L Globulin 3.3 Albumin/Globulin Ratio 1.0 06/23/16 06/23/16 06/23/16 08:11 11:15 11:21 WBC RBC Hgb Hct MCV MCH MCHC RDW Plt Count MPV Neut % (Auto) Lymph % (Auto) [place] % (Auto) Eos % (Auto) Baso % (Auto) Neut # Lymph # [place] # Eos # Baso # Puncture Site Rb pCO2 29 L pO2 190 H HCO3 22.5 ABG pH 7.45 ABG Total CO2 21.1 L ABG O2 Saturation 99.0 H ABG Base Excess -3.1 L ABG Hemoglobin 9.3 L ABG Carboxyhemoglobin 1.0 POC ABG HHb (Measured) 1.0 ABG Methemoglobin 0.5 Gael Test Na A-a O2 Difference 130.0 Respiratory Index 0.7 Hgb O2 Saturation 97.5 FiO2 50.0 Inspiratory BiPAP 12 Expiratory BiPAP 6 Sodium Potassium Chloride Carbon Dioxide Anion Gap BUN Creatinine Est GFR ( Amer) Est GFR (Non-Af Amer) POC Glucose (mg/dL) 197 H 110 Random Glucose Calcium Phosphorus Magnesium Total Bilirubin AST ALT Alkaline Phosphatase Total Protein Albumin Globulin Albumin/Globulin Ratio Attending/Attestation - Attestation I have personally seen and examined this patient.: Yes I have fully participated in the care of the patient.: Yes I have reviewed all pertinent clinical information: Yes Notes (Text): 06/23/16 14:04 Patient seen and examined in the morning. Was on respiratory distress, moving little air, very difficult to hear air movement on the left lung field, crackles on right lung field. 2 l of urine after 40 mg of lasix IV, placed foely and bpap. she received her usual dose of xanax in am (2mg) with some somnolence, xanax reversed with flumazenil, pat awake and aware of her surroundings. She has made herself DNR/DNI, she says she is tired and wants to rest. Her daughter, Juju was present during the conversation and supports her mother, hr oldest son was contacted by Elena, palliative care RN and has has given full decision to her sister Juju. The patient is doing a little better after lasix and bpap, last abg with no CO2 retention. Keep NPO for tonight, might have some water if she is thirsty.
[2016-06-23 06:52] LABS: CARBON DIOXIDE 17 mmol/L (22-30); GFR AFRICAN-AMERICAN > 60
[2016-06-23 06:53] LABS: ALKALINE PHOSPHATASE 61 U/L (38-126); AST/SGOT 33 U/L (14-36); BLOOD UREA NITROGEN 14 mg/dL (7-17); CALCIUM 7.8 mg/dl (8.6-10.4); GLUCOSE,RANDOM 86 mg/dL (65-105); MAGNESIUM 1.7 mg/dL (1.6-2.3); PHOSPHOROUS 2.8 mg/dL (2.5-4.5); TOTAL PROTEIN 6.5 g/dL (6.3-8.3)
[2016-06-23 07:02] LABS: ALT/SGPT < 6 U/L (9-52)
[2016-06-23] MEDS: Ranolazine 500 mg Extended Release Tablets PO SCH ×2 (09:55→18:10)
--- NOTE | 2016-06-23 09:58 | RAD ---
HISTORY: Congestive heart failure COMPARISON: No prior. FINDINGS: LUNGS: Prominent diffuse increased interstitial lung markings suggestive for prominent diffuse edema and or infiltrate. More confluent patchy consolidative changes in the left mid to lower lung zone as well as the right hilar region and right lung base. Small loculated left pleural effusion. Biapical pleural thickening with upper lobe granulomatous changes. Bilateral hilar prominence. Nodular opacity at the right lung base. PLEURA: As above. CARDIOVASCULAR: Normal. OSSEOUS STRUCTURES: Scoliotic curvature of the spine. VISUALIZED UPPER ABDOMEN: Normal. OTHER FINDINGS: None. IMPRESSION: Prominent diffuse increased interstitial lung markings suggestive for prominent diffuse edema and or infiltrate. More confluent patchy consolidative changes in the left mid to lower lung zone as well as the right hilar region and right lung base. Small loculated left pleural effusion. Biapical pleural thickening with upper lobe granulomatous changes. Bilateral hilar prominence. Nodular opacity at the right lung base.
[2016-06-23 11:18] LABS: ARTERIAL BLOOD HGB O2 SAT 97.5 % (95.0-98.0); DRAW SITE RB; METHEMOGLOBIN 0.5 % (0.0-3.0)
[2016-06-23] MEDS ORDERED: Flumazenil 0.1 mg/ml Inj (5ml) IVP STA (12:06)
--- NOTE | 2016-06-23 12:42 | CP.PCM.CON ---
History of Present Illness - History of Present Illness History of Present Illness: Palliative consult requested by DO Tolbert Reason: Goals of care discussion Patient is a 81 yo lady admitted S/P intubation on the field due to acute respiratory distress. As per ER report, patient has complained of chest pain with SOB, when the daughter called 911. Patient was admitted to ICU for further care. On 06/21/2016 patient was successfully extubated. BP is supported by Dopamine. PMH: CHF, HTN, asthma, COPD, dementia, DM, RA Soc. Hx: lives at home with daughter Bridgette, older daughter Juju very involved in care, the oldest son Jorge Alberto lives in [place] ( [phone]) Fam. Hx: unknown Review of Systems - Review of Systems Systems not reviewed;Unavailable: Acuity of Condition Past Patient History - Infectious Disease Hx of Infectious Diseases: None - Tetanus Immunizations Tetanus Immunization: Unknown - Past Medical History & Family History Past Medical History?: Yes - Past Social History Smoking Status: Never Smoked - CARDIAC Hx Congestive Heart Failure: Yes Hx Hypertension: Yes - PULMONARY Hx Asthma: Yes Hx Chronic Obstructive Pulmonary Disease (COPD): Yes Hx Pneumonia: Yes (08/2015) - NEUROLOGICAL Hx Dementia: Yes - HEENT Hx HEENT Problems: No - RENAL Hx Chronic Kidney Disease: No Hx Kidney Stones: No - ENDOCRINE/METABOLIC Hx Diabetes Mellitus Type 2: Yes Hx Hyperthyroidism: No Hx Hypothyroidism: No - HEMATOLOGICAL/ONCOLOGICAL Hx Anemia: No Hx Human Immunodeficiency Virus (HIV): No Hx Sickle Cell Disease: No - INTEGUMENTARY Hx Dermatological Problems: No - MUSCULOSKELETAL/RHEUMATOLOGICAL Hx Arthritis: Yes Hx Osteoporosis: Yes Hx Rheumatoid Arthritis: Yes - GASTROINTESTINAL Hx Gall Bladder Disease: Yes - GENITOURINARY/GYNECOLOGICAL Hx Sexually Transmitted Disorders: No - PSYCHIATRIC Hx Substance Use: No - SURGICAL HISTORY Hx Cholecystectomy: Yes Hx Coronary Stent: Yes (proximal RCA stent, 2 weeks ago) - ANESTHESIA Hx Anesthesia: Yes Hx Anesthesia Reactions: No Hx Malignant Hyperthermia: No Meds Allergies/Adverse Reactions: Allergies Allergy/AdvReac Type Severity Reaction Status Date / Time moxifloxacin HCl Allergy Severe ANAPHYLAXIS Verified 06/19/16 09:49 [From Avelox] - Medications Medications: Current Medications Albuterol/Ipratropium (Duoneb 3 Mg/0.5 Mg (3 Ml) Ud) 3 ml INH RQ6 [facility] Last Admin: 06/23/16 07:36 Dose: 3 ml Alprazolam (Xanax) 0.25 mg PO ONCE ONE Stop: 06/23/16 10:01 Aspirin (Aspirin) 325 mg PO DAILY [facility] Last Admin: 06/23/16 09:55 Dose: 325 mg Carvedilol (Coreg) 6.25 mg PO BID [facility] Last Admin: 06/21/16 09:38 Dose: 6.25 mg Clopidogrel Bisulfate (Plavix) 75 mg PO DAILY [facility] Last Admin: 06/23/16 09:55 Dose: 75 mg Escitalopram Oxalate (Lexapro) 5 mg PO DAILY [facility] Last Admin: 06/23/16 09:55 Dose: 5 mg Famotidine (Pepcid) 20 mg PO DAILY [facility] Last Admin: 06/23/16 09:55 Dose: 20 mg Furosemide (Lasix) 20 mg IVP Q12H [facility] Losartan Potassium (Cozaar) 25 mg PO DAILY [facility] Montelukast Sodium (Singulair) 10 mg PO [facility] Last Admin: 06/22/16 21:28 Dose: 10 mg Ranolazine (Ranexa) 500 mg PO BID [facility] Last Admin: 06/23/16 09:55 Dose: 500 mg Rosuvastatin Calcium (Crestor) 10 mg PO [facility] Last Admin: 06/22/16 21:28 Dose: 10 mg Physical Exam - Constitutional Appears: Chronically Ill - Head Exam Head Exam: ATRAUMATIC, NORMAL INSPECTION, NORMOCEPHALIC - Eye Exam Eye Exam: EOMI, Normal appearance, PERRL Pupil Exam: NORMAL ACCOMODATION, PERRL - ENT Exam ENT Exam: Mucous Membranes Dry - Neck Exam Neck exam: Positive for: Normal Inspection - Respiratory Exam Respiratory Exam: Decreased Breath Sounds Additional comments: On CPAP - Cardiovascular Exam Cardiovascular Exam: Tachycardia, REGULAR RHYTHM, +S1, +S2 - GI/Abdominal Exam GI & Abdominal Exam: Normal Bowel Sounds - Rectal Exam Rectal Exam: Deferred - Extremities Exam Extremities exam: Positive for: normal inspection - Back Exam Back exam: NORMAL INSPECTION - Neurological Exam Neurological exam: Alert, Altered - Psychiatric Exam Psychiatric exam: Flat Affect - Skin Skin Exam: Pallor Results - Vital Signs Recent Vital Signs: Last Vital Signs Temp 97.5 F L 06/23/16 04:00 Pulse 72 06/23/16 12:00 Resp 24 06/23/16 12:00 BP 117/65 06/23/16 10:59 Pulse Ox 100 04/27/17 12:00 - Labs Result Diagrams: 06/23/16 06:15 06/23/16 06:15 Labs: Laboratory Results - last 24 hr 06/22/16 06/22/16 06/23/16 11:58 16:30 06:15 WBC 6.5 RBC 3.80 Hgb 8.8 L Hct 27.3 L MCV 71.8 L MCH 23.1 L MCHC 32.2 L RDW 16.4 H Plt Count 300 MPV 10.1 Neut % (Auto) 51.4 Lymph % (Auto) 31.4 [place] % (Auto) 9.2 Eos % (Auto) 6.6 H Baso % (Auto) 1.4 Neut # 3.4 Lymph # 2.0 [place] # 0.6 Eos # 0.4 Baso # 0.1 Puncture Site pCO2 pO2 HCO3 ABG pH ABG Total CO2 ABG O2 Saturation ABG Base Excess ABG Hemoglobin ABG Carboxyhemoglobin POC ABG HHb (Measured) ABG Methemoglobin Gael Test A-a O2 Difference Respiratory Index Hgb O2 Saturation FiO2 Inspiratory BiPAP Expiratory BiPAP Sodium Potassium Chloride Carbon Dioxide Anion Gap BUN Creatinine Est GFR ( Amer) Est GFR (Non-Af Amer) POC Glucose (mg/dL) 154 H 120 H Random Glucose Calcium Phosphorus Magnesium Total Bilirubin AST ALT Alkaline Phosphatase Total Protein Albumin Globulin Albumin/Globulin Ratio 06/23/16 06/23/16 06/23/16 06:15 08:11 11:15 WBC RBC Hgb Hct MCV MCH MCHC RDW Plt Count MPV Neut % (Auto) Lymph % (Auto) [place] % (Auto) Eos % (Auto) Baso % (Auto) Neut # Lymph # [place] # Eos # Baso # Puncture Site Rb pCO2 29 L pO2 190 H HCO3 22.5 ABG pH 7.45 ABG Total CO2 21.1 L ABG O2 Saturation 99.0 H ABG Base Excess -3.1 L ABG Hemoglobin 9.3 L ABG Carboxyhemoglobin 1.0 POC ABG HHb (Measured) 1.0 ABG Methemoglobin 0.5 Gael Test Na A-a O2 Difference 130.0 Respiratory Index 0.7 Hgb O2 Saturation 97.5 FiO2 50.0 Inspiratory BiPAP 12 Expiratory BiPAP 6 Sodium 138 Potassium 4.2 Chloride 107 Carbon Dioxide 17 L Anion Gap 18 BUN 14 Creatinine 0.6 L Est GFR ( Amer) > 60 Est GFR (Non-Af Amer) > 60 POC Glucose (mg/dL) 197 H Random Glucose 86 Calcium 7.8 L Phosphorus 2.8 Magnesium 1.7 Total Bilirubin 1.0 AST 33 ALT < 6 L Alkaline Phosphatase 61 Total Protein 6.5 Albumin 3.2 L Globulin 3.3 Albumin/Globulin Ratio 1.0 06/23/16 11:21 WBC RBC Hgb Hct MCV MCH MCHC RDW Plt Count MPV Neut % (Auto) Lymph % (Auto) [place] % (Auto) Eos % (Auto) Baso % (Auto) Neut # Lymph # [place] # Eos # Baso # Puncture Site pCO2 pO2 HCO3 ABG pH ABG Total CO2 ABG O2 Saturation ABG Base Excess ABG Hemoglobin ABG Carboxyhemoglobin POC ABG HHb (Measured) ABG Methemoglobin Gael Test A-a O2 Difference Respiratory Index Hgb O2 Saturation FiO2 Inspiratory BiPAP Expiratory BiPAP Sodium Potassium Chloride Carbon Dioxide Anion Gap BUN Creatinine Est GFR ( Amer) Est GFR (Non-Af Amer) POC Glucose (mg/dL) 110 Random Glucose Calcium Phosphorus Magnesium Total Bilirubin AST ALT Alkaline Phosphatase Total Protein Albumin Globulin Albumin/Globulin Ratio Assessment & Plan - Assessment and Plan (Free Text) Assessment: Palliative consult Code status was Full Code prior to consult. No advance directive on the chart. PPS 10% ROS unobtainable due to condition. I reviewed medical records, all diagnostic studies, examined patient in the bed and discussed goals of care with daughter Juju at bed side. Doctor Healy attended discussion as well. ROS obtained from the daughter. Patient is alert, lethargic, on CPAP. Skin is pale and cool to touch. Patient responds to voice and touch. Attention span is very short. Hb 8.8. O2Sat 95%. Doctor Healy ordered ABGs. BP 158/98, HR 89. Over night patient become bradicardic and Dopamine was titrated. Goals of care discussed with daughter Juju at bed side. She claims being very close to patient and has had discussion about end of life care with her mother in the past. The last time patient was sick, patient told Juju she was tired and " could not fight any more". Juju wanted to know what was to expect regarding her mother's condition. Doctor healy answered those questions. It was suggested that patient's respiratory status was still very fragile and that she may have to be reintubated again during the day. I spoke over the phone with patient's son Jorge Alberto, who agreed that Juju was the decision maker when it comes to patient's medical needs. he agreed that Juju would act in patient's best taz. We further discussed the meaning of Code and DNR status. The daughter claims being retired ICU nurse and had the full understanding of it. We agreed to apply all interventions to support her mother's respiratory status. If her mother's heart stops, Juju would not want her to be resuscitated. Juju claims being very restoration and "if God had decided to take her mother, than she should let it happen". We agreed not to do CPR if patient looses pulse, but we should put patient on MV support as it could help patient by pass this acute event of respiratory distress. Daughter is open for further goals of care discussion based on patient 's progress. DNR/DNI remains as an option Impression * This is a chronically ill patient with very complex PMH * Family is certain that they would not want patient's life being prolonged by life support if meaningful recovery was not expected * Patient is currently on CPAP, but may need support of MV during the day * Daughter agreed that patient may be intubated one more time if that would help her recover * Family open to discuss DNR/DNI Suggestion * Agree with DNR * Would dc Xanax and Lexapro and monitor neuro status * Goals of care to be adjusted based on patient's progress Thank you very much for involving me in care of this patient.
--- NOTE | 2016-06-23 21:36 | CP.PCM.PN ---
Subjective - Date & Time of Evaluation Date of Evaluation: 06/23/16 Time of Evaluation: 17:30 - Subjective Subjective: Patient seen and evaluated On BiPAP Family made patient DNR Objective - Vital Signs/Intake and Output Vital Signs (last 24 hours): Temp Pulse Resp BP Pulse Ox 98 F 73 26 H 127/79 100 06/23/16 20:00 06/23/16 20:21 06/23/16 20:00 06/23/16 19:59 06/23/16 20:00 Intake and Output: 06/23/16 06/24/16 18:59 06:59 Intake Total 150 0 Output Total 1800 120 Balance -1650 -120 - Medications Medications: Current Medications Albuterol/Ipratropium (Duoneb 3 Mg/0.5 Mg (3 Ml) Ud) 3 ml INH RQ6 [facility] Last Admin: 06/23/16 20:20 Dose: 3 ml Alprazolam (Xanax) 0.25 mg PO DAILY [facility] Stop: 06/30/16 10:01 Aspirin (Aspirin) 325 mg PO DAILY [facility] Last Admin: 06/23/16 09:55 Dose: 325 mg Carvedilol (Coreg) 6.25 mg PO BID [facility] Last Admin: 06/21/16 09:38 Dose: 6.25 mg Clopidogrel Bisulfate (Plavix) 75 mg PO DAILY [facility] Last Admin: 06/23/16 09:55 Dose: 75 mg Escitalopram Oxalate (Lexapro) 5 mg PO DAILY [facility] Last Admin: 06/23/16 09:55 Dose: 5 mg Famotidine (Pepcid) 20 mg PO DAILY [facility] Last Admin: 06/23/16 09:55 Dose: 20 mg Furosemide (Lasix) 20 mg IVP Q12H [facility] Last Admin: 06/23/16 18:09 Dose: 20 mg Losartan Potassium (Cozaar) 25 mg PO DAILY [facility] Montelukast Sodium (Singulair) 10 mg PO HS [facility] Last Admin: 06/23/16 21:20 Dose: 10 mg Ranolazine (Ranexa) 500 mg PO BID [facility] Last Admin: 06/23/16 18:10 Dose: 500 mg Rosuvastatin Calcium (Crestor) 10 mg PO HS [facility] Last Admin: 06/23/16 21:20 Dose: 10 mg - Labs Labs: 06/23/16 06:15 06/23/16 06:15 PT 15.1 SECONDS (9.7-12.2) H 06/19/16 10:11 INR 1.3 06/19/16 10:11 APTT 28 SECONDS (21-34) 06/19/16 10:11
[2016-06-24] MEDS: Albuterol-Ipratrop 3 mg / 0.5 (3 ml) UD INH SCH ×3 (01:12→14:02)
[2016-06-24 06:35] LABS: BASO # 0.1 K/uL (0.0-0.2); BASO % 1.6 % (0.0-2.0); EOS # 0.3 K/uL (0.0-0.7); EOS % 4.5 % (0.0-4.0); HEMATOCRIT 30.9 % (34.0-47.0); MEAN CELL VOLUME 70.7 fL (81.0-99.0); MEAN CORPUSCULAR HEMOGLOBIN 22.6 pg (27.0-31.0); MONO # 0.7 K/uL (0.0-0.8); MONO % 10.9 % (0.0-10.0); RED CELL DISTRIBUTION WIDTH 15.8 % (11.5-14.5); WHITE BLOOD COUNT 6.2 K/uL (4.8-10.8)
[2016-06-24 06:57] LABS: CHLORIDE 101 mmol/L (98-107)
[2016-06-24 06:58] LABS: POTASSIUM 3.8 mmol/L (3.6-5.2); SODIUM 140 mmol/L (132-148)
[2016-06-24 07:00] LABS: GFR AFRICAN-AMERICAN > 60
[2016-06-24 07:01] LABS: ALB/GLOB RATIO 1.1 (1.0-2.1); ALKALINE PHOSPHATASE 87 U/L (38-126); AST/SGOT 18 U/L (14-36); BLOOD UREA NITROGEN 16 mg/dL (7-17); CALCIUM 9.4 mg/dl (8.6-10.4); CARBON DIOXIDE 22 mmol/L (22-30); GLUCOSE,RANDOM 87 mg/dL (65-105); PHOSPHOROUS 3.9 mg/dL (2.5-4.5); TOTAL PROTEIN 7.5 g/dL (6.3-8.3)
[2016-06-24 07:02] LABS: MAGNESIUM 1.8 mg/dL (1.6-2.3)
[2016-06-24 07:10] LABS: ALT/SGPT < 6 U/L (9-52)
--- NOTE | 2016-06-24 07:20 | CP.CCUPN ---
<Otoniel Tolbert - Last Filed: 06/24/16 11:26> CCU Subjective - Physician Review Subjective (Free Text): 06/24/16 11:26 Pt seen and examined at bedside. Yesterday, pt found with xanax bottle in bed. Pt had long discussion with attending regarding end of life care. Patient chart updated yesterday to reflect DNR status. Pt wishes to be intubated if the need arises. She tolerated BiPap last night, and saturated well on nasal cannula this AM. She denies chest pain, palpitations, abdominal pain, N/V/D/C. She is marked for transfer to medical/surgical floor this AM. Critical Care Time Spent (in minutes): 40 CCU Objective - Vital Signs / Intake & Output Vital Signs (Last 4 hours): Vital Signs Pulse Resp BP Pulse Ox 06/24/16 07:00 75 24 100 06/24/16 06:59 75 22 138/87 100 06/24/16 06:02 76 06/24/16 06:00 84 20 100 06/24/16 05:59 79 22 129/77 100 06/24/16 05:00 78 23 06/24/16 04:59 76 22 117/72 06/24/16 04:18 130/78 06/24/16 04:00 76 24 06/24/16 03:59 78 25 H 130/78 Intake and Output (Last 8hrs): Intake & Output 06/23/16 06/24/16 06/24/16 22:59 06:59 14:59 Intake Total 300 200 0 Output Total 1989 310 Balance -1690 -110 0 Weight 101 lb Intake: Intake, IV Amount 50 right external jugular 50 vein Oral 250 200 0 Output: Urine 1989 310 Urethral (Hernandez) 1989 310 Urine, Voided 0 Other: # Bowel Movements 0 - Physical Exam Head: Positive for: Atraumatic, Normocephalic Pupils: Positive for: PERRL Extroacular Muscles: Positive for: EOMI Conjunctiva: Positive for: Normal Mouth: Positive for: Moist Mucous Membranes Respiratory/Chest: Positive for: Accessory Muscle Use, Rales, Rhonchi, Tachypneic. Negative for: Clear to Auscultation, Respiratory Distress Cardiovascular: Positive for: Regular Rate and Rhythm, Normal S1, S2 Abdomen: Positive for: Normal Bowel Sounds. Negative for: Tenderness, Distention, Rebound, Guarding Upper Extremity: Positive for: Normal Inspection Lower Extremity: Positive for: Normal Inspection Neurological: Positive for: GCS=15, CN II-XII Intact, Speech Normal Skin: Positive for: Warm, Dry Psychiatric: Positive for: Alert, Oriented x 3 - Medications Active Medications: Active Medications Generic Name Dose Route Start Last Admin Trade Name Freq PRN Reason Stop Dose Admin Albuterol/Ipratropium 3 ml 06/19/16 14:00 06/24/16 01:12 Duoneb 3 Mg/0.5 Mg (3 Ml) Ud INH 3 ml RQ6 [facility] Administration Alprazolam 0.25 mg 06/23/16 14:58 Xanax PO 06/30/16 10:01 DAILY BLAKE Aspirin 325 mg 06/20/16 10:00 06/23/16 09:55 Aspirin PO 325 mg DAILY [facility] Administration Carvedilol 6.25 mg 06/19/16 18:00 06/21/16 09:38 Coreg PO 6.25 mg BID [facility] Administration Clopidogrel Bisulfate 75 mg 06/20/16 10:00 06/23/16 09:55 Plavix PO 75 mg DAILY [facility] Administration Escitalopram Oxalate 5 mg 06/20/16 10:00 06/23/16 09:55 Lexapro PO 5 mg DAILY [facility] Administration Famotidine 20 mg 06/19/16 18:00 06/23/16 09:55 Pepcid PO 20 mg DAILY [facility] Administration Furosemide 20 mg 06/21/16 16:30 06/24/16 04:18 Lasix IVP 20 mg Q12H [facility] Administration Heparin Sodium (Porcine) 5,000 units 06/23/16 22:00 06/23/16 23:19 Heparin SC 5,000 units Q12H [facility] Administration Losartan Potassium 25 mg 06/24/16 10:00 Cozaar PO DAILY [facility] Montelukast Sodium 10 mg 06/19/16 22:00 06/23/16 21:20 Singulair PO 10 mg HS [facility] Administration Ranolazine 500 mg 06/19/16 18:00 06/23/16 18:10 Ranexa PO 500 mg BID [facility] Administration Rosuvastatin Calcium 10 mg 06/19/16 22:00 06/23/16 21:20 Crestor PO 10 mg HS [facility] Administration - Patient Studies Lab Studies: Lab Studies 06/24/16 06/24/16 06/23/16 Range/Units 06:28 06:26 11:21 WBC 6.2 (4.8-10.8) K/uL RBC 4.37 (3.80-5.20) Mil/uL Hgb 9.9 L (11.0-16.0) g/dL Hct 30.9 L (34.0-47.0) % MCV 70.7 L (81.0-99.0) fL MCH 22.6 L (27.0-31.0) pg MCHC 32.0 L (33.0-37.0) g/dL RDW 15.8 H (11.5-14.5) % Plt Count 348 (130-400) K/uL MPV 10.0 (7.2-11.7) fL Neut % (Auto) 50.0 (50.0-75.0) % Lymph % (Auto) 33.0 (20.0-40.0) % Warrick % (Auto) 10.9 H (0.0-10.0) % Eos % (Auto) 4.5 H (0.0-4.0) % Baso % (Auto) 1.6 (0.0-2.0) % Neut # 3.1 (1.8-7.0) K/uL Lymph # 2.0 (1.0-4.3) K/uL Warrick # 0.7 (0.0-0.8) K/uL Eos # 0.3 (0.0-0.7) K/uL Baso # 0.1 (0.0-0.2) K/uL Puncture Site pCO2 (35-45) mm/Hg pO2 (80-100) mm/Hg HCO3 (21-28) mmol/L ABG pH (7.35-7.45) ABG Total CO2 (22-28) mmol/L ABG O2 Saturation (95-98) % ABG Base Excess (-2.0-3.0) mmol/L ABG Hemoglobin (11.7-17.4) g/dL ABG Carboxyhemoglobin (0.5-1.5) % POC ABG HHb (Measured) (0.0-5.0) % ABG Methemoglobin (0.0-3.0) % Gael Test A-a O2 Difference mm/Hg Respiratory Index Hgb O2 Saturation (95.0-98.0) % FiO2 % Inspiratory BiPAP Expiratory BiPAP Sodium 140 (132-148) mmol/L Potassium 3.8 (3.6-5.2) mmol/L Chloride 101 (98-107) mmol/L Carbon Dioxide 22 (22-30) mmol/L Anion Gap 21 H (10-20) BUN 16 (7-17) mg/dL Creatinine 0.8 (0.7-1.2) MG/DL Est GFR ( Amer) > 60 Est GFR (Non-Af Amer) > 60 POC Glucose (mg/dL) 110 (65-110) mg/dL Random Glucose 87 (65-105) mg/dL Calcium 9.4 (8.6-10.4) mg/dl Phosphorus 3.9 (2.5-4.5) mg/dL Magnesium 1.8 (1.6-2.3) mg/dL Total Bilirubin 1.0 (0.2-1.3) mg/dL AST 18 (14-36) U/L ALT < 6 L (9-52) U/L Alkaline Phosphatase 87 (38-126) U/L Total Protein 7.5 (6.3-8.3) g/dL Albumin 3.9 (3.5-5.0) g/dL Globulin 3.7 (2.2-3.9) gm/dL Albumin/Globulin Ratio 1.1 (1.0-2.1) 06/23/16 06/23/16 Range/Units 11:15 08:11 WBC (4.8-10.8) K/uL RBC (3.80-5.20) Mil/uL Hgb (11.0-16.0) g/dL Hct (34.0-47.0) % MCV (81.0-99.0) fL MCH (27.0-31.0) pg MCHC (33.0-37.0) g/dL RDW (11.5-14.5) % Plt Count (130-400) K/uL MPV (7.2-11.7) fL Neut % (Auto) (50.0-75.0) % Lymph % (Auto) (20.0-40.0) % Warrick % (Auto) (0.0-10.0) % Eos % (Auto) (0.0-4.0) % Baso % (Auto) (0.0-2.0) % Neut # (1.8-7.0) K/uL Lymph # (1.0-4.3) K/uL Warrick # (0.0-0.8) K/uL Eos # (0.0-0.7) K/uL Baso # (0.0-0.2) K/uL Puncture Site Rb pCO2 29 L (35-45) mm/Hg pO2 190 H (80-100) mm/Hg HCO3 22.5 (21-28) mmol/L ABG pH 7.45 (7.35-7.45) ABG Total CO2 21.1 L (22-28) mmol/L ABG O2 Saturation 99.0 H (95-98) % ABG Base Excess -3.1 L (-2.0-3.0) mmol/L ABG Hemoglobin 9.3 L (11.7-17.4) g/dL ABG Carboxyhemoglobin 1.0 (0.5-1.5) % POC ABG HHb (Measured) 1.0 (0.0-5.0) % ABG Methemoglobin 0.5 (0.0-3.0) % Gael Test Na A-a O2 Difference 130.0 mm/Hg Respiratory Index 0.7 Hgb O2 Saturation 97.5 (95.0-98.0) % FiO2 50.0 % Inspiratory BiPAP 12 Expiratory BiPAP 6 Sodium (132-148) mmol/L Potassium (3.6-5.2) mmol/L Chloride (98-107) mmol/L Carbon Dioxide (22-30) mmol/L Anion Gap (10-20) BUN (7-17) mg/dL Creatinine (0.7-1.2) MG/DL Est GFR ( Amer) Est GFR (Non-Af Amer) POC Glucose (mg/dL) 197 H (65-110) mg/dL Random Glucose (65-105) mg/dL Calcium (8.6-10.4) mg/dl Phosphorus (2.5-4.5) mg/dL Magnesium (1.6-2.3) mg/dL Total Bilirubin (0.2-1.3) mg/dL AST (14-36) U/L ALT (9-52) U/L Alkaline Phosphatase (38-126) U/L Total Protein (6.3-8.3) g/dL Albumin (3.5-5.0) g/dL Globulin (2.2-3.9) gm/dL Albumin/Globulin Ratio (1.0-2.1) Laboratory Results - last 24 hr 06/23/16 06/23/16 06/23/16 08:11 11:15 11:21 WBC RBC Hgb Hct MCV MCH MCHC RDW Plt Count MPV Neut % (Auto) Lymph % (Auto) Warrick % (Auto) Eos % (Auto) Baso % (Auto) Neut # Lymph # Warrick # Eos # Baso # Puncture Site Rb pCO2 29 L pO2 190 H HCO3 22.5 ABG pH 7.45 ABG Total CO2 21.1 L ABG O2 Saturation 99.0 H ABG Base Excess -3.1 L ABG Hemoglobin 9.3 L ABG Carboxyhemoglobin 1.0 POC ABG HHb (Measured) 1.0 ABG Methemoglobin 0.5 Gael Test Na A-a O2 Difference 130.0 Respiratory Index 0.7 Hgb O2 Saturation 97.5 FiO2 50.0 Inspiratory BiPAP 12 Expiratory BiPAP 6 Sodium Potassium Chloride Carbon Dioxide Anion Gap BUN Creatinine Est GFR ( Amer) Est GFR (Non-Af Amer) POC Glucose (mg/dL) 197 H 110 Random Glucose Calcium Phosphorus Magnesium Total Bilirubin AST ALT Alkaline Phosphatase Total Protein Albumin Globulin Albumin/Globulin Ratio 06/24/16 06/24/16 06:26 06:28 WBC 6.2 RBC 4.37 Hgb 9.9 L Hct 30.9 L MCV 70.7 L MCH 22.6 L MCHC 32.0 L RDW 15.8 H Plt Count 348 MPV 10.0 Neut % (Auto) 50.0 Lymph % (Auto) 33.0 Warrick % (Auto) 10.9 H Eos % (Auto) 4.5 H Baso % (Auto) 1.6 Neut # 3.1 Lymph # 2.0 Warrick # 0.7 Eos # 0.3 Baso # 0.1 Puncture Site pCO2 pO2 HCO3 ABG pH ABG Total CO2 ABG O2 Saturation ABG Base Excess ABG Hemoglobin ABG Carboxyhemoglobin POC ABG HHb (Measured) ABG Methemoglobin Gael Test A-a O2 Difference Respiratory Index Hgb O2 Saturation FiO2 Inspiratory BiPAP Expiratory BiPAP Sodium 140 Potassium 3.8 Chloride 101 Carbon Dioxide 22 Anion Gap 21 H BUN 16 Creatinine 0.8 Est GFR ( Amer) > 60 Est GFR (Non-Af Amer) > 60 POC Glucose (mg/dL) Random Glucose 87 Calcium 9.4 Phosphorus 3.9 Magnesium 1.8 Total Bilirubin 1.0 AST 18 ALT < 6 L Alkaline Phosphatase 87 Total Protein 7.5 Albumin 3.9 Globulin 3.7 Albumin/Globulin Ratio 1.1 Fingerstick Blood Sugar Results: 111 Review of Systems - Constitutional Constitutional: absent: Fever, Chills Assessment/Plan - Assessment and Plan (Free Text) Assessment: 81 year old female, with PMHx of CAD, HTN, CHF, COPD, RA, Anxiety, and Dementia. Pt presents for acute SOB. She was intubated in field by EMS, given 3SL NTG, and IV Lasix. This is her 6th admission for CHF/flash pulm edema in 2 months. Pt started on Entresto but held due to hypotension. Plan: Pt status: Transfer to med/surg, DNR Neuro: AAOx3 Anxiety Xanax 1mg PO BID PRN Lexapro 5mg PO daily CV: CHF BNP 2260 (in line w. previous admission: 2790, 2960, 3500, 7510, 4380) CXR (06/19/16): Interval increased diffuse b/l infiltrates likely representing CH /pulm edema (see full report) CXR (06/21/16): Biapical pleural thickening with upper lobe granulomatous changes. Mild venous congestion. Mild patchy bibasilar airspace opacities. (see full report) Cardiac Cath (12/31/15): Severe 2-vessel CAD. Successful PCI at mid right coronary w. GARRY. Severe lt ventricular systolic dysfunction (see full report) Dr. Kelley - cardio consult - help appreciated ECHO (01/12)- Read as: 55% EF, severe MR, moderate to severe TR, moderate pulmonary HTN - Pt may benefit from mitral clip - no repeat necessary, but Dr. Kelley feels true EF is lower than as read - NM Muga scan for assessment of EF: Calculated EF of 32% ASA 325mg PO daily Coreg 6.25mg PO BID (hold) Plavix 75mg PO Daily Lasix 40mg IV Q12H Ranolazine 500mg PO BID Discontinued Entresto - Continue Losartan 25mg PO Daily Hypotension - resolved, no longer on pressors Abnormal EKG EKG - Sinus tachycardia with PACs. Left axis deviation. LVH w. QRS widening and repolarization abnormality. Inferior infarct, age undetermined. History of CAD Lipid profile WNL (05/27 admission) ASA 325mg PO daily Crestor 10mg PO HS Pulm: Pt extubated on 06/21 Lasix 20mg IV Q12H O2 sat: 99 on 3 L O2 Hx of COPD Duonebs Q6H BLAKE Singulair 10mg PO HS GI: ADAT: currently soft LFTs WNL /Renal: BUN/Cr WNL Monitor [id number]: Hx of RA - pt family reports "up to 200+ Percocet per month," for arthiritis pain - Percocet 5/325 1 tab PO Q4H PRN Prophylaxis Heparin 5000 units SC Q12 Pepcid 20mg PO daily [facility] <Marybeth Loredo - Last Filed: 06/24/16 14:10> CCU Objective - Vital Signs / Intake & Output Vital Signs (Last 4 hours): Vital Signs Pulse Resp BP Pulse Ox 06/24/16 13:00 80 23 06/24/16 12:59 88 23 95/60 L 06/24/16 12:33 97 H 15 97 06/24/16 12:03 100 06/24/16 12:00 86 19 06/24/16 11:59 94 H 22 95/69 L 06/24/16 11:00 101 H 21 97/51 L Intake and Output (Last 8hrs): Intake & Output 06/23/16 06/24/16 06/24/16 22:59 06:59 14:59 Intake Total 300 200 150 Output Total 1989 310 400 Balance -1690 -110 -250 Weight 101 lb Intake: Intake, IV Amount 50 right external jugular 50 vein Oral 250 200 150 Output: Urine 1989 310 400 Urethral (Hernandez) 1989 310 400 Urine, Voided 0 Other: # Bowel Movements 0 - Medications Active Medications: Active Medications Generic Name Dose Route Start Last Admin Trade Name Freq PRN Reason Stop Dose Admin Albuterol/Ipratropium 3 ml 06/19/16 14:00 06/24/16 14:02 Duoneb 3 Mg/0.5 Mg (3 Ml) Ud INH 3 ml RQ6 BLAKE Administration Alprazolam 0.25 mg 06/23/16 14:58 06/24/16 10:08 Xanax PO 06/30/16 10:01 0.25 mg DAILY BLAKE Administration Aspirin 325 mg 06/20/16 10:00 06/24/16 10:08 Aspirin PO 325 mg DAILY [facility]LAKE Administration Carvedilol 6.25 mg 06/19/16 18:00 06/21/16 09:38 Coreg PO 6.25 mg BID BLAKE Administration Clopidogrel Bisulfate 75 mg 06/20/16 10:00 06/24/16 10:08 Plavix PO 75 mg DAILY BLAKE Administration Escitalopram Oxalate 5 mg 06/20/16 10:00 06/24/16 10:08 Lexapro PO 5 mg DAILY BLAKE Administration Famotidine 20 mg 06/19/16 18:00 06/24/16 10:08 Pepcid PO 20 mg DAILY BLAKE Administration Furosemide 20 mg 06/21/16 16:30 06/24/16 04:18 Lasix IVP 20 mg Q12H BLAKE Administration Heparin Sodium (Porcine) 5,000 units 06/23/16 22:00 06/24/16 10:08 Heparin SC 5,000 units Q12H BLAKE Administration Losartan Potassium 25 mg 06/24/16 10:00 06/24/16 10:08 Cozaar PO 25 mg DAILY [facility] Administration Montelukast Sodium 10 mg 06/19/16 22:00 06/23/16 21:20 Singulair PO 10 mg HS BLAKE Administration Ranolazine 500 mg 06/19/16 18:00 06/24/16 10:08 Ranexa PO 500 mg BID BLAKE Administration Rosuvastatin Calcium 10 mg 06/19/16 22:00 06/23/16 21:20 Crestor PO 10 mg HS BLAKE Administration - Patient Studies Lab Studies: Lab Studies 06/24/16 06/24/16 Range/Units 06:28 06:26 WBC 6.2 (4.8-10.8) K/uL RBC 4.37 (3.80-5.20) Mil/uL Hgb 9.9 L (11.0-16.0) g/dL Hct 30.9 L (34.0-47.0) % MCV 70.7 L (81.0-99.0) fL MCH 22.6 L (27.0-31.0) pg MCHC 32.0 L (33.0-37.0) g/dL RDW 15.8 H (11.5-14.5) % Plt Count 348 (130-400) K/uL MPV 10.0 (7.2-11.7) fL Neut % (Auto) 50.0 (50.0-75.0) % Lymph % (Auto) 33.0 (20.0-40.0) % Warrick % (Auto) 10.9 H (0.0-10.0) % Eos % (Auto) 4.5 H (0.0-4.0) % Baso % (Auto) 1.6 (0.0-2.0) % Neut # 3.1 (1.8-7.0) K/uL Lymph # 2.0 (1.0-4.3) K/uL Warrick # 0.7 (0.0-0.8) K/uL Eos # 0.3 (0.0-0.7) K/uL Baso # 0.1 (0.0-0.2) K/uL Sodium 140 (132-148) mmol/L Potassium 3.8 (3.6-5.2) mmol/L Chloride 101 (98-107) mmol/L Carbon Dioxide 22 (22-30) mmol/L Anion Gap 21 H (10-20) BUN 16 (7-17) mg/dL Creatinine 0.8 (0.7-1.2) MG/DL Est GFR ( Amer) > 60 Est GFR (Non-Af Amer) > 60 Random Glucose 87 (65-105) mg/dL Calcium 9.4 (8.6-10.4) mg/dl Phosphorus 3.9 (2.5-4.5) mg/dL Magnesium 1.8 (1.6-2.3) mg/dL Total Bilirubin 1.0 (0.2-1.3) mg/dL AST 18 (14-36) U/L ALT < 6 L (9-52) U/L Alkaline Phosphatase 87 (38-126) U/L Total Protein 7.5 (6.3-8.3) g/dL Albumin 3.9 (3.5-5.0) g/dL Globulin 3.7 (2.2-3.9) gm/dL Albumin/Globulin Ratio 1.1 (1.0-2.1) Laboratory Results - last 24 hr 06/24/16 06/24/16 06:26 06:28 WBC 6.2 RBC 4.37 Hgb 9.9 L Hct 30.9 L MCV 70.7 L MCH 22.6 L MCHC 32.0 L RDW 15.8 H Plt Count 348 MPV 10.0 Neut % (Auto) 50.0 Lymph % (Auto) 33.0 Warrick % (Auto) 10.9 H Eos % (Auto) 4.5 H Baso % (Auto) 1.6 Neut # 3.1 Lymph # 2.0 Warrick # 0.7 Eos # 0.3 Baso # 0.1 Sodium 140 Potassium 3.8 Chloride 101 Carbon Dioxide 22 Anion Gap 21 H BUN 16 Creatinine 0.8 Est GFR ( Amer) > 60 Est GFR (Non-Af Amer) > 60 Random Glucose 87 Calcium 9.4 Phosphorus 3.9 Magnesium 1.8 Total Bilirubin 1.0 AST 18 ALT < 6 L Alkaline Phosphatase 87 Total Protein 7.5 Albumin 3.9 Globulin 3.7 Albumin/Globulin Ratio 1.1 Critical Care Progress Note - Nutrition Nutrition: Nutrition Category Date Time Status Consistent Carbohydrate [DIET] Diets 06/24/16 Breakfast Active Attending/Attestation - Attestation I have personally seen and examined this patient.: Yes I have fully participated in the care of the patient.: Yes I have reviewed all pertinent clinical information: Yes Notes (Text): 06/24/16 14:10 Patient doing much better than yesterday, lungs clear to auscultation bilaterally. Ok to eat and remove bpap, continue lasix at 20 mg q12h, follow bpm closely since might need to cut the dose down to 10 mg bid. transfer to the floor
[2016-06-24] MEDS: Ranolazine 500 mg Extended Release Tablets PO SCH ×2 (10:08→18:37)
[2016-06-24] MEDS ORDERED: Oxycodone/Acetaminophen 5/325 mg Tab PO ONE (14:08)
[2016-06-25] MEDS ORDERED: Oxycodone/Acetaminophen 5/325 mg Tab PO ONE (06:31)
--- NOTE | 2016-06-25 08:03 | CP.PCM.PN ---
Subjective - Date & Time of Evaluation Date of Evaluation: 06/24/16 Time of Evaluation: 13:00 - Subjective Subjective: No new changes Patient on BiPAP Currently DNR Objective - Vital Signs/Intake and Output Vital Signs (last 24 hours): Temp Pulse Resp BP Pulse Ox 98 F 83 21 128/72 97 06/24/16 20:00 06/24/16 20:00 06/24/16 20:00 06/25/16 04:37 06/24/16 12:33 Intake and Output: 06/25/16 06/25/16 06:59 18:59 Intake Total 250 Balance 250 - Medications Medications: Current Medications Alprazolam (Xanax) 0.25 mg PO DAILY [facility] Stop: 06/30/16 10:01 Last Admin: 06/24/16 10:08 Dose: 0.25 mg Aspirin (Aspirin) 325 mg PO DAILY [facility] Last Admin: 06/24/16 10:08 Dose: 325 mg Carvedilol (Coreg) 6.25 mg PO BID [facility] Last Admin: 06/21/16 09:38 Dose: 6.25 mg Clopidogrel Bisulfate (Plavix) 75 mg PO DAILY [facility] Last Admin: 06/24/16 10:08 Dose: 75 mg Escitalopram Oxalate (Lexapro) 5 mg PO DAILY [facility] Last Admin: 06/24/16 10:08 Dose: 5 mg Famotidine (Pepcid) 20 mg PO DAILY [facility] Last Admin: 06/24/16 10:08 Dose: 20 mg Furosemide (Lasix) 20 mg IVP Q12H [facility] Last Admin: 06/25/16 04:37 Dose: 20 mg Heparin Sodium (Porcine) (Heparin) 5,000 units SC Q12H [facility] Last Admin: 06/24/16 21:13 Dose: 5,000 units Losartan Potassium (Cozaar) 25 mg PO DAILY [facility] Last Admin: 06/24/16 10:08 Dose: 25 mg Montelukast Sodium (Singulair) 10 mg PO HS [facility] Last Admin: 06/24/16 21:13 Dose: 10 mg Ranolazine (Ranexa) 500 mg PO BID [facility] Last Admin: 06/24/16 18:37 Dose: 500 mg Rosuvastatin Calcium (Crestor) 10 mg PO HS [facility] Last Admin: 06/24/16 21:12 Dose: 10 mg - Labs Labs: 06/24/16 06:28 06/24/16 06:26 PT 15.1 SECONDS (9.7-12.2) H 06/19/16 10:11 INR 1.3 06/19/16 10:11 APTT 28 SECONDS (21-34) 06/19/16 10:11
[2016-06-25] MEDS: Ranolazine 500 mg Extended Release Tablets PO SCH ×2 (10:12→17:08)
--- NOTE | 2016-06-26 06:41 | CP.PCM.PN ---
Subjective - Date & Time of Evaluation Date of Evaluation: 06/25/16 Time of Evaluation: 11:10 - Subjective Subjective: Patient seen and evaluated Not in distress Objective - Vital Signs/Intake and Output Vital Signs (last 24 hours): Temp Pulse Resp BP Pulse Ox 98 F 98 H 18 106/60 100 06/25/16 16:00 06/25/16 16:00 06/25/16 16:00 06/26/16 04:00 06/25/16 16:00 Intake and Output: 06/25/16 06/26/16 18:59 06:59 Intake Total 400 Output Total 540 900 Balance -140 -900 - Medications Medications: Current Medications Alprazolam (Xanax) 0.25 mg PO DAILY [facility] Stop: 06/30/16 10:01 Last Admin: 06/25/16 10:12 Dose: 0.25 mg Aspirin (Aspirin) 325 mg PO DAILY [facility] Last Admin: 06/25/16 10:12 Dose: 325 mg Carvedilol (Coreg) 6.25 mg PO BID [facility] Last Admin: 06/21/16 09:38 Dose: 6.25 mg Clopidogrel Bisulfate (Plavix) 75 mg PO DAILY [facility] Last Admin: 06/25/16 10:12 Dose: 75 mg Escitalopram Oxalate (Lexapro) 5 mg PO DAILY [facility] Last Admin: 06/25/16 10:12 Dose: 5 mg Famotidine (Pepcid) 20 mg PO DAILY [facility] Last Admin: 06/25/16 10:12 Dose: 20 mg Furosemide (Lasix) 20 mg IVP Q12H [facility] Last Admin: 06/26/16 04:00 Dose: 20 mg Heparin Sodium (Porcine) (Heparin) 5,000 units SC Q12H [facility] Last Admin: 06/25/16 21:05 Dose: 5,000 units Lorazepam (Ativan) 1 mg IVP Q8H PRN PRN Reason: Anxiety Last Admin: 06/25/16 22:49 Dose: 1 mg Losartan Potassium (Cozaar) 25 mg PO DAILY [facility] Last Admin: 06/25/16 10:13 Dose: 25 mg Montelukast Sodium (Singulair) 10 mg PO HS [facility] Last Admin: 06/25/16 21:05 Dose: 10 mg Ranolazine (Ranexa) 500 mg PO BID [facility] Last Admin: 04/29/17 17:08 Dose: 500 mg Rosuvastatin Calcium (Crestor) 10 mg PO HS [facility] Last Admin: 06/25/16 21:05 Dose: 10 mg - Labs Labs: 06/24/16 06:28 06/24/16 06:26 PT 15.1 SECONDS (9.7-12.2) H 06/19/16 10:11 INR 1.3 06/19/16 10:11 APTT 28 SECONDS (21-34) 06/19/16 10:11
[2016-06-26] MEDS: Ranolazine 500 mg Extended Release Tablets PO SCH ×2 (09:30→17:33)
--- NOTE | 2016-06-27 08:02 | PN ---
DATE: 06/25/2016 The patient with supportive care. Continue treatment. Gisselle Vogel MD cc: [id number] TT: 06/25/2016 10:10:44 Confirmation # [id number] Dictation # [id number] jn
--- NOTE | 2016-06-27 10:01 | CP.PCM.PN ---
Subjective - Date & Time of Evaluation Date of Evaluation: 06/27/16 Time of Evaluation: 08:00 - Subjective Subjective: Medicine Progress Note- Dr. Beck's Service: Patient seen and examined at bedside this AM. Patient is confused and a little agitated. Patient asking to have her scalp examined, which was examined by Dr. Beck and found to be normal. Patient reassured. Denies pain at this time. Patient complaining of migraine headaches coming back this AM. Objective - Vital Signs/Intake and Output Vital Signs (last 24 hours): Temp Pulse Resp BP Pulse Ox 98.2 F 86 21 129/59 L 95 06/26/16 20:00 06/26/16 20:00 06/26/16 20:00 06/27/16 05:18 06/26/16 20:00 Intake and Output: 06/27/16 06/27/16 06:59 18:59 Intake Total 0 Balance 0 - Medications Medications: Current Medications Alprazolam (Xanax) 0.25 mg PO DAILY [facility] Stop: 06/30/16 10:01 Last Admin: 06/26/16 09:32 Dose: 0.25 mg Aspirin (Aspirin) 325 mg PO DAILY [facility] Last Admin: 06/26/16 09:30 Dose: 325 mg Carvedilol (Coreg) 6.25 mg PO BID [facility] Last Admin: 06/21/16 09:38 Dose: 6.25 mg Clopidogrel Bisulfate (Plavix) 75 mg PO DAILY [facility] Last Admin: 06/26/16 09:30 Dose: 75 mg Escitalopram Oxalate (Lexapro) 5 mg PO DAILY [facility] Last Admin: 06/26/16 09:30 Dose: 5 mg Famotidine (Pepcid) 20 mg PO DAILY [facility] Last Admin: 06/26/16 09:30 Dose: 20 mg Furosemide (Lasix) 20 mg IVP Q12H [facility] Last Admin: 06/27/16 05:18 Dose: 20 mg Lorazepam (Ativan) 1 mg IVP Q8H PRN PRN Reason: Anxiety Last Admin: 06/27/16 03:15 Dose: 1 mg Losartan Potassium (Cozaar) 25 mg PO DAILY [facility] Last Admin: 06/26/16 09:30 Dose: 25 mg Montelukast Sodium (Singulair) 10 mg PO HS [facility] Last Admin: 06/26/16 21:12 Dose: 10 mg Ranolazine (Ranexa) 500 mg PO BID [facility] Last Admin: 06/26/16 17:33 Dose: 500 mg Rosuvastatin Calcium (Crestor) 10 mg PO HS [facility] Last Admin: 06/26/16 21:12 Dose: 10 mg - Labs Labs: 06/24/16 06:28 06/24/16 06:26 PT 15.1 SECONDS (9.7-12.2) H 06/19/16 10:11 INR 1.3 06/19/16 10:11 APTT 28 SECONDS (21-34) 06/19/16 10:11 - Constitutional Appears: No Acute Distress, Cachectic, Chronically Ill - Head Exam Head Exam: ATRAUMATIC, NORMAL INSPECTION, NORMOCEPHALIC - Eye Exam Eye Exam: EOMI, Normal appearance - Respiratory Exam Respiratory Exam: Clear to Ausculation Bilateral, NORMAL BREATHING PATTERN - Cardiovascular Exam Cardiovascular Exam: REGULAR RHYTHM, +S1, +S2 - GI/Abdominal Exam GI & Abdominal Exam: Soft. absent: Distended, Tenderness - Extremities Exam Extremities Exam: Full ROM, Normal Inspection - Neurological Exam Neurological Exam: Alert, Altered, Awake - Psychiatric Exam Psychiatric exam: Normal Affect, Normal Mood - Skin Skin Exam: Normal Color, Warm Assessment and Plan - Assessment and Plan (Free Text) Assessment: 81 year old female, with PMHx of CAD, HTN, CHF, COPD, RA, Anxiety, and Dementia. Pt presents for acute SOB. She was intubated in field by EMS, given 3SL NTG, and IV Lasix. This is her 6th admission for CHF/flash pulm edema in 2 months. Pt started on Entresto but held due to hypotension. 1) Respiratory Failure Pt extubated on 06/21 Pt with fluid overload on 06/23 with stat lasix given at the time. Lasix 20mg IV Q12H O2 sat: 99 on 3 L O2 Patient with Hx of COPD Duonebs Q6H BLAKE Singulair 10mg PO HS 2) Congestive Heart Failure Dr. Kelley - cardio consult - help appreciated ECHO (01/12)- Read as: 55% EF, severe MR, moderate to severe TR, moderate pulmonary HTN - Pt may benefit from mitral clip - no repeat necessary, but Dr. Kelley feels true EF is lower than as read - NM Muga scan/ for assessment of EF: Calculated EF of 32% As per conversation with Dr. Kelley 06/27/16, he recommends conservative treatment at this time given patient's DNR status. However, if patient wishes to have more aggressive measures, patient could be evaluated by EP cardio for pacemaker placement. However, due to patient's fragile condition, conservative treatment is recommended, but ultimately up to patient and family wishes. BNP 2260 (in line w. previous admission: 2790, 2960, 3500, 7510, 4380) CXR (06/19/16): Interval increased diffuse b/l infiltrates likely representing CH /pulm edema (see full report) CXR (06/21/16): Biapical pleural thickening with upper lobe granulomatous changes. Mild venous congestion. Mild patchy bibasilar airspace opacities. (see report) Cardiac Cath (12/31/15): Severe 2-vessel CAD. Successful PCI at mid right coronary w. GARRY. Severe lt ventricular systolic dysfunction (see full report) ASA 325mg PO daily Coreg 6.25mg PO BID (hold) Plavix 75mg PO Daily Lasix 40mg IV Q12H Ranolazine 500mg PO BID Losartan 25mg PO Daily 3) Abnormal EKG EKG - Sinus tachycardia with PACs. Left axis deviation. LVH w. QRS widening and repolarization abnormality. Inferior infarct, age undetermined. Lipid profile WNL (05/27 admission) ASA 325mg PO daily Crestor 10mg PO HS History of CAD. Dr. Kelley - cardio consult - recommendations as above 4) Hypotension - resolved, no longer on pressors - Holding Coreg,Losartan and Lasix 5) Anxiety Xanax 1mg PO BID PRN Lexapro 5mg PO daily 6) Rheumatoid Arthritis - pt family reports Percocet use for pain - Will order Percocet 5/325 1 tab PO Q4H as needed- one time doses. 7) Prophylaxis - Heparin 5000 units SC Q12 - Pepcid 20mg PO daily - SCDs Management as per Dr. Beck.
[2016-06-27] MEDS: Ranolazine 500 mg Extended Release Tablets PO SCH ×2 (10:28→17:13)
[2016-06-27] MEDS: Apap-Butalbital-Caffeine 325-50-40mg Tab PO PRN (15:52)
[2016-06-27 16:27] VITALS: RESP 20
--- NOTE | 2016-06-28 00:05 | CP.PCM.PN ---
Subjective - Date & Time of Evaluation Date of Evaluation: 06/27/16 Time of Evaluation: 09:05 - Subjective Subjective: Patient seen and evaluated Continue medical management No invasive cardiac procedures now Objective - Vital Signs/Intake and Output Vital Signs (last 24 hours): Temp Pulse Resp BP Pulse Ox 97.5 F L 89 20 125/73 95 06/27/16 16:26 06/27/16 16:26 06/27/16 16:26 06/27/16 17:13 06/27/16 16:26 Intake and Output: 06/27/16 06/28/16 18:59 06:59 Intake Total 275 400 Output Total 400 Balance -125 400 - Medications Medications: Current Medications Acetaminophen/Butalbital/Caffeine (Fioricet) 1 tab PO Q4 PRN PRN Reason: Headache Last Admin: 06/27/16 15:52 Dose: 1 tab Alprazolam (Xanax) 0.[address] [facility] Stop: 06/30/16 10:01 Last Admin: 06/27/16 10:27 Dose: 0.25 mg Aspirin (Aspirin) [address] [facility] Last Admin: 06/27/16 10:27 Dose: 325 mg Carvedilol (Coreg) 6.[address] [facility] Last Admin: 06/21/16 09:38 Dose: 6.25 mg Clopidogrel Bisulfate (Plavix) [address] [facility] Last Admin: 06/27/16 10:28 Dose: 75 mg Escitalopram Oxalate (Lexapro) [address] [facility] Last Admin: 06/27/16 10:27 Dose: 5 mg Famotidine (Pepcid) [address] [facility] Last Admin: 06/27/16 10:28 Dose: 20 mg Furosemide (Lasix) [address] [facility] Last Admin: 06/27/16 17:13 Dose: 20 mg Lorazepam (Ativan) 1 mg IVP Q8H PRN PRN Reason: Anxiety Last Admin: 06/27/16 17:19 Dose: 1 mg Losartan Potassium (Cozaar) [address] [facility] Last Admin: 06/27/16 10:28 Dose: 25 mg Montelukast Sodium (Singulair) [address] [facility] Last Admin: 06/27/16 21:56 Dose: 10 mg Ranolazine (Ranexa) [address] [facility] Last Admin: 06/27/16 17:13 Dose: 500 mg Rosuvastatin Calcium (Crestor) [address] [facility] Last Admin: 06/27/16 21:56 Dose: 10 mg - Labs Labs: 06/24/16 06:28 06/24/16 06:26 PT 15.1 SECONDS (9.7-12.2) H 06/19/16 10:11 INR 1.3 06/19/16 10:11 APTT 28 SECONDS (21-34) 06/19/16 10:11
[2016-06-28] MEDS: Apap-Butalbital-Caffeine 325-50-40mg Tab PO PRN ×3 (00:36→19:59)
[2016-06-28] MEDS: Ranolazine 500 mg Extended Release Tablets PO SCH ×2 (10:57→17:29)
--- NOTE | 2016-06-28 11:00 | CP.PCM.PN ---
Subjective - Date & Time of Evaluation Date of Evaluation: 06/28/16 Time of Evaluation: 09:15 - Subjective Subjective: Medicine Progress Note Patient seen and examined. Patient is tearful and says that her daughters have not come to the hospital to visit her yet. She states that she feels tired and does not feel well because she has a headache. Patient says that she was unable to sleep well last night. She also has a decreased appetite this morning. She denies fever, chills, nausea, vomiting, abdominal pain, chest pain and shortness of breath. Patient is pending discharge to [facility]. Objective - Vital Signs/Intake and Output Vital Signs (last 24 hours): Temp Pulse Resp BP Pulse Ox 97.8 F 90 20 128/89 96 06/28/16 08:04 06/28/16 08:04 06/28/16 08:04 06/28/16 08:04 06/28/16 08:04 Intake and Output: 06/28/16 06/28/16 06:59 18:59 Intake Total 550 Balance 550 - Medications Medications: Current Medications Acetaminophen/Butalbital/Caffeine (Fioricet) 1 tab PO Q4 PRN PRN Reason: Headache Last Admin: 06/28/16 06:50 Dose: 1 tab Alprazolam (Xanax) 0.25 mg PO DAILY [facility] Stop: 06/30/16 10:01 Last Admin: 06/27/16 10:27 Dose: 0.25 mg Aspirin (Aspirin) 325 mg PO DAILY [facility] Last Admin: 06/27/16 10:27 Dose: 325 mg Carvedilol (Coreg) 6.25 mg PO BID [facility] Last Admin: 06/21/16 09:38 Dose: 6.25 mg Clopidogrel Bisulfate (Plavix) 75 mg PO DAILY [facility] Last Admin: 06/27/16 10:28 Dose: 75 mg Escitalopram Oxalate (Lexapro) 5 mg PO DAILY [facility] Last Admin: 06/27/16 10:27 Dose: 5 mg Famotidine (Pepcid) 20 mg PO DAILY [facility] Last Admin: 06/27/16 10:28 Dose: 20 mg Furosemide (Lasix) 20 mg IVP Q12H [facility] Last Admin: 06/28/16 04:46 Dose: 20 mg Lorazepam (Ativan) 1 mg IVP Q8H PRN PRN Reason: Anxiety Last Admin: 06/28/16 00:36 Dose: 1 mg Losartan Potassium (Cozaar) 25 mg PO DAILY [facility] Last Admin: 06/27/16 10:28 Dose: 25 mg Montelukast Sodium (Singulair) 10 mg PO HS [facility] Last Admin: 06/27/16 21:56 Dose: 10 mg Ranolazine (Ranexa) 500 mg PO BID [facility] Last Admin: 06/27/16 17:13 Dose: 500 mg Rosuvastatin Calcium (Crestor) 10 mg PO HS [facility] Last Admin: 06/27/16 21:56 Dose: 10 mg - Labs Labs: 06/24/16 06:28 06/24/16 06:26 PT 15.1 SECONDS (9.7-12.2) H 06/19/16 10:11 INR 1.3 06/19/16 10:11 APTT 28 SECONDS (21-34) 06/19/16 10:11 - Constitutional Appears: Non-toxic, No Acute Distress, Chronically Ill - Head Exam Head Exam: ATRAUMATIC, NORMOCEPHALIC - Eye Exam Eye Exam: EOMI, Normal appearance Pupil Exam: NORMAL ACCOMODATION - ENT Exam ENT Exam: Mucous Membranes Moist - Respiratory Exam Respiratory Exam: Clear to Ausculation Bilateral, NORMAL BREATHING PATTERN. absent: Rhonchi, Wheezes, Respiratory Distress - Cardiovascular Exam Cardiovascular Exam: REGULAR RHYTHM, +S1, +S2 - GI/Abdominal Exam GI & Abdominal Exam: Soft, Normal Bowel Sounds. absent: Tenderness - Extremities Exam Extremities Exam: Normal Inspection. absent: Pedal Edema, Tenderness - Neurological Exam Neurological Exam: Alert, Awake, Oriented x3 - Psychiatric Exam Psychiatric exam: Depressed, Normal Affect - Skin Skin Exam: Dry, Intact, Normal Color, Warm Assessment and Plan - Assessment and Plan (Free Text) Assessment: 81 year old female, with PMHx of CAD, HTN, CHF, COPD, RA, Anxiety, and Dementia. Pt presents for acute SOB. She was intubated in field by EMS, given 3SL NTG, and IV Lasix. This is her 6th admission for CHF/flash pulm edema in 2 months. Pt started on Entresto but held due to hypotension. 1) Respiratory Failure Pt extubated on 06/21 Pt with fluid overload on 06/23 with stat lasix given at the time. O2 sat: 99 on 3 L O2 Patient with Hx of COPD Duonebs Q6H [facility] Singulair 10mg PO HS 2) Congestive Heart Failure Dr. Kelley - cardio consult - help appreciated ECHO (01/12)- Read as: 55% EF, severe MR, moderate to severe TR, moderate pulmonary HTN - Lasix 20mg IV Q12H - Pt may benefit from mitral clip - no repeat necessary, but Dr. Kelley feels true EF is lower than as read - NM Muga scan/ for assessment of EF: Calculated EF of 32% As per conversation with Dr. Kelley 06/27/16, he recommends conservative treatment at this time given patient's DNR status. However, if patient wishes to have more aggressive measures, patient could be evaluated by EP cardio for pacemaker placement. However, due to patient's fragile condition, conservative treatment is recommended, but ultimately up to patient and family wishes. BNP 2260 (in line w. previous admission: 2790, 2960, 3500, 7510, 4380) CXR (06/19/16): Interval increased diffuse b/l infiltrates likely representing CH /pulm edema (see full report) CXR (06/21/16): Biapical pleural thickening with upper lobe granulomatous changes. Mild venous congestion. Mild patchy bibasilar airspace opacities. (see report) Cardiac Cath (12/31/15): Severe 2-vessel CAD. Successful PCI at mid right coronary w. GARRY. Severe lt ventricular systolic dysfunction (see full report) ASA 325mg PO daily Coreg 6.25mg PO BID (hold) Plavix 75mg PO Daily Ranolazine 500mg PO BID Losartan 25mg PO Daily (hold) 3) Abnormal EKG EKG - Sinus tachycardia with PACs. Left axis deviation. LVH w. QRS widening and repolarization abnormality. Inferior infarct, age undetermined. Lipid profile WNL (05/27 admission) ASA 325mg PO daily Crestor 10mg PO HS History of CAD. Dr. Kelley - cardio consult - recommendations as above 4) Hypotension - resolved, no longer on pressors - Holding Coreg,Losartan - Lasix 20mg IV Q12H 5) Anxiety and Depression Tearful this morning, denies SI/HI Xanax 1mg PO BID PRN Lexapro 5mg PO daily 6) Rheumatoid Arthritis - pt family reports Percocet use for pain - Will order Percocet 5/325 1 tab PO Q4H as needed- one time doses. 7) Prophylaxis - Heparin 5000 units SC Q12 - Pepcid 20mg PO daily - SCDs Management as per Dr. Beck.
--- NOTE | 2016-06-28 13:45 | CP.PCM.PN ---
<Les Marrero - Last Filed: 06/28/16 18:31> Subjective - Date & Time of Evaluation Date of Evaluation: 06/28/16 Time of Evaluation: 13:35 - Subjective Subjective: Cardiology Progress Note Dr. Gustafson (covering for Dr. eKlley) Patient seen and examined at the bedside. The patient is in no acute distress. No acute events overnight. The nursing staff reports no issues. The patient has complaint this morning of decreased appetite. The patient denies all cardiopulmonary complaints at this time. 12 point review of systems was preformed and returned negative except for the above stated complaints. Objective - Vital Signs/Intake and Output Vital Signs (last 24 hours): Temp Pulse Resp BP Pulse Ox 97.8 F 90 20 128/89 96 06/28/16 08:04 06/28/16 08:04 06/28/16 08:04 06/28/16 08:04 06/28/16 08:04 Intake and Output: 06/28/16 06/28/16 06:59 18:59 Intake Total 550 Balance 550 - Medications Medications: Current Medications Acetaminophen/Butalbital/Caffeine (Fioricet) 1 tab PO Q4 PRN PRN Reason: Headache Last Admin: 06/28/16 06:50 Dose: 1 tab Alprazolam (Xanax) 0.25 mg PO DAILY [facility] Stop: 06/30/16 10:01 Last Admin: 06/28/16 10:57 Dose: 0.25 mg Aspirin (Aspirin) 325 mg PO DAILY [facility] Last Admin: 06/28/16 10:57 Dose: 325 mg Carvedilol (Coreg) 6.25 mg PO BID [facility] Last Admin: 06/21/16 09:38 Dose: 6.25 mg Clopidogrel Bisulfate (Plavix) 75 mg PO DAILY [facility] Last Admin: 06/28/16 10:57 Dose: 75 mg Escitalopram Oxalate (Lexapro) 5 mg PO DAILY [facility] Last Admin: 06/28/16 10:57 Dose: 5 mg Famotidine (Pepcid) 20 mg PO DAILY [facility] Last Admin: 06/28/16 10:57 Dose: 20 mg Furosemide (Lasix) 20 mg IVP Q12H [facility] Last Admin: 06/28/16 04:46 Dose: 20 mg Lorazepam (Ativan) 1 mg IVP Q8H PRN PRN Reason: Anxiety Last Admin: 06/28/16 00:36 Dose: 1 mg Losartan Potassium (Cozaar) 25 mg PO DAILY [facility] Last Admin: 06/28/16 11:01 Dose: 25 mg Montelukast Sodium (Singulair) 10 mg PO HS [facility] Last Admin: 06/27/16 21:56 Dose: 10 mg Ranolazine (Ranexa) 500 mg PO BID [facility] Last Admin: 06/28/16 10:57 Dose: 500 mg Rosuvastatin Calcium (Crestor) 10 mg PO [facility] Last Admin: 06/27/16 21:56 Dose: 10 mg - Labs Labs: 06/24/16 06:28 06/24/16 06:26 PT 15.1 SECONDS (9.7-12.2) H 06/19/16 10:11 INR 1.3 06/19/16 10:11 APTT 28 SECONDS (21-34) 06/19/16 10:11 - Constitutional Appears: Non-toxic, Chronically Ill - Head Exam Head Exam: ATRAUMATIC, NORMAL INSPECTION, NORMOCEPHALIC - Eye Exam Eye Exam: EOMI, Normal appearance Pupil Exam: NORMAL ACCOMODATION - ENT Exam ENT Exam: Mucous Membranes Moist, Normal Exam - Neck Exam Neck Exam: Full ROM, Normal Inspection. absent: Lymphadenopathy, Tenderness - Respiratory Exam Respiratory Exam: Clear to Ausculation Bilateral, NORMAL BREATHING PATTERN. absent: Rales, Rhonchi, Wheezes - Cardiovascular Exam Cardiovascular Exam: REGULAR RHYTHM, RRR, +S1, +S2. absent: Diastolic murmur, Murmur - GI/Abdominal Exam GI & Abdominal Exam: Soft, Normal Bowel Sounds. absent: Distended, Firm, Guarding, Rigid, Tenderness - Extremities Exam Extremities Exam: Normal Capillary Refill, Normal Inspection. absent: Joint Swelling, Pedal Edema - Neurological Exam Neurological Exam: Alert, Awake, CN II-XII Intact, Oriented x3 - Skin Skin Exam: Dry, Intact, Normal Color, Warm Assessment and Plan (1) Systolic congestive heart failure, NYHA class 3 Assessment & Plan: Continue - Aspirin 81mg PO Daily - Coreg 6.25mg PO Daily - Plavix 75mg PO Daily - Crestor 10mg PO HS - Cozaar 25mg PO Daily - Lasix 20mg IV Q12 Continue Current management Cardiac Stable Hemodynamically Stable O2 via nasal cannula as needed Troponin Negative x 3 (0.0140 > 0.0420 > 0.0420) CK MB Negative x 3 (0.82 > 1.25 > 0.79) 06/19/16 EKG- sinus tachycardia (101bpm), normal FL and QRS duration, prolonged QTc, PACs, Q waves (unchanged from previous), LVH 05/30/16 EKG- sinus rhythm (71bpm), normal intervals, PACs, Q waves in II, III, AVF, V1, V2 (inferior and anterior infarcts undetermined) 12/29/15 Cardiac Cath- PCI of mid RCA with 2.5mm x 18mm Xience GARRY, severe 2- vessel disease (99% occlusion of RCA AKASH II flow, 20% stenosis distal left main , 80-90% stenosis proximal LAD, 90% stenosis mid LAD, 95% apical stenosis LAD, EF 30-35%) 06/25/16 Echo- preliminary EF 27%- official read is pending 05/15/16 Echo- LV EF 62%, normal diastolic filling pressures Case Discussed with Dr. Sj Marrero PGY1 Status: Acute (2) CAD S/P percutaneous coronary angioplasty Assessment & Plan: PCI with Dr. Cunningham 12/29/15 Cardiac Cath- PCI of mid RCA with 2.5mm x 18mm Xience GARRY, severe 2- vessel disease (99% occlusion of RCA AKASH II flow, 20% stenosis distal left main , 80-90% stenosis proximal LAD, 90% stenosis mid LAD, 95% apical stenosis LAD, EF 30-35%) Status: Chronic (3) CAD (coronary artery disease) Status: Chronic <Iraida Gustafson - Last Filed: 07/21/16 10:22> Objective - Vital Signs/Intake and Output Vital Signs (last 24 hours): Temp Pulse Resp BP Pulse Ox 98.6 F 75 20 121/60 18 L 06/30/16 16:29 06/30/16 16:29 06/30/16 07:44 06/30/16 16:29 06/30/16 16:29 - Labs Labs: 06/24/16 06:28 06/24/16 06:26 PT 15.1 SECONDS (9.7-12.2) H 06/19/16 10:11 INR 1.3 06/19/16 10:11 APTT 28 SECONDS (21-34) 06/19/16 10:11 Attending/Attestation - Attestation I have personally seen and examined this patient.: Yes I have fully participated in the care of the patient.: Yes I have reviewed all pertinent clinical information, including history, physical exam and plan: Yes Notes (Text): 07/21/16 10:22 nl LVEF continue meds
--- NOTE | 2016-06-29 08:36 | CARD ---
APPROVED REPORT EXAM: Two-dimensional and M-mode echocardiogram with Doppler and color Doppler. Other Information Quality : GoodRhythm : NSR INDICATION CVA/TIA Congestive Heart Failure RESPIRATORY FAILURE, M-Mode DIMENSIONS Left Atrium (MM)4.13 (2.5-4.0cm)IVSd1.07 (0.7-1.1cm) Aortic Root2.93 (2.2-3.7cm)LVDd4.62 (4.0-5.6cm) Aortic Cusp Exc.1.17 (1.5-2.0cm)PWd1.14 (0.7-1.1cm) FS (%) 27 %LVDs3.38 (2.0-3.8cm) LVEF (%)52 (>50%) Mitral Valve MV E Abbvtsuj562.8cm/sMV A Llnheydx198.3cm/sE/A ratio1.3 TDI E/Lateral E'0.0E/Medial E'0.0 Tricuspid Valve TR Peak Kjgjuzca161zs/sTR Peak Gr.[id number] LEFT VENTRICLE The left ventricle is normal size. There is borderline concentric left ventricular hypertrophy. The systolic function is mildly impaired. 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 Transmitral Doppler flow pattern is Grade II-pseudonormal filling dynamics. However E/A ratio may overestimate diastolic grade given severe MR No left ventricle thrombus noted on this study. There is no ventricular septal defect visualized. There is no left ventricular aneurysm. There is no mass noted in the left ventricle. RIGHT VENTRICLE The right ventricle is normal size. There is normal right ventricular wall thickness. The right ventricular systolic function is normal. ATRIA The left atrium is moderately dilated. The right atrium is mildly dilated. The interatrial septum is intact with no evidence for an atrial septal defect. AORTIC VALVE The aortic valve is moderately sclerotic. The aortic valve is tri-cuspid. No aortic regurgitation is present. There is no aortic valvular stenosis. There is no aortic valvular vegetation. MITRAL VALVE Mitral annular calcification is mild. Poor leaflet coaptation due to papillary muscle displacement secondary to NJ. There is no evidence of mitral valve prolapse. There is no mitral valve stenosis. Mitral regurgitation is severe. TRICUSPID VALVE The tricuspid valve is normal in structure. There is moderate tricuspid regurgitation. PAP 40-50 RAP 5-10 There is no tricuspid valve prolapse or vegetation. There is no tricuspid valve stenosis. PULMONIC VALVE NWV There is mild pulmonic valvular regurgitation. There is no pulmonic valvular stenosis. GREAT VESSELS The aortic root is normal in size. The ascending aorta is normal in size. The pulmonary artery is normal. The IVC is normal in size and collapses >50% with inspiration. PERICARDIAL EFFUSION The pericardium appears normal. There is no pleural effusion. <Conclusion> The left ventricle is normal size. The systolic function is mildly impaired. EF = 40-45% There is Akinesis and thinning of the basal and mid inferior wall and septal wall segments (both anterior and inferior) indicative of prior NJ. Transmitral Doppler flow pattern is Grade II-pseudonormal filling dynamics. However E/A ratio may overestimate diastolic grade given severe MR The left atrium is moderately dilated. The right atrium is mildly dilated. The aortic valve is moderately sclerotic. Mitral regurgitation is severe. Poor MV leaflet coaptation due to papillary muscle displacement secondary to NJ. There is moderate tricuspid regurgitation. PAP 40-50 RAP 5-10
[2016-06-29] MEDS: Ranolazine 500 mg Extended Release Tablets PO SCH ×2 (09:18→17:34)
--- NOTE | 2016-06-29 11:13 | CP.PCM.PN ---
<Les Marrero - Last Filed: 06/29/16 11:08> Subjective - Date & Time of Evaluation Date of Evaluation: 06/29/16 Time of Evaluation: 11:08 - Subjective Subjective: Cardiology Progress Note Dr. Gustafson (covering for Dr. Kelley) Patient seen and examined at the bedside. The patient is in no acute distress. No acute events overnight. The nursing staff reports no issues. The patient denies all cardiopulmonary complaints at this time. 12 point review of systems was preformed and returned negative except for the above stated complaints. Objective - Vital Signs/Intake and Output Vital Signs (last 24 hours): Temp Pulse Resp BP Pulse Ox 98.2 F 71 20 113/64 95 06/29/16 09:34 06/29/16 09:34 06/29/16 09:34 06/29/16 09:34 06/29/16 09:34 Intake and Output: 06/29/16 06/29/16 06:59 18:59 Intake Total 850 Balance 850 - Medications Medications: Current Medications Acetaminophen/Butalbital/Caffeine (Fioricet) 1 tab PO Q4 PRN PRN Reason: Headache Last Admin: 06/28/16 19:59 Dose: 1 tab Alprazolam (Xanax) 0.25 mg PO DAILY [facility] Stop: 06/30/16 10:01 Last Admin: 06/29/16 09:18 Dose: 0.25 mg Aspirin (Aspirin) 325 mg PO DAILY [facility] Last Admin: 06/29/16 09:18 Dose: 325 mg Carvedilol (Coreg) 6.25 mg PO BID [facility] Last Admin: 06/21/16 09:38 Dose: 6.25 mg Clopidogrel Bisulfate (Plavix) 75 mg PO DAILY [facility] Last Admin: 06/29/16 09:18 Dose: 75 mg Escitalopram Oxalate (Lexapro) 5 mg PO DAILY [facility] Last Admin: 06/29/16 09:20 Dose: 5 mg Famotidine (Pepcid) 20 mg PO DAILY [facility] Last Admin: 06/29/16 09:18 Dose: 20 mg Furosemide (Lasix) 20 mg IVP Q12H [facility] Last Admin: 06/29/16 04:19 Dose: 20 mg Lorazepam (Ativan) 1 mg IVP Q8H PRN PRN Reason: Anxiety Last Admin: 06/28/16 00:36 Dose: 1 mg Losartan Potassium (Cozaar) 25 mg PO DAILY [facility] Last Admin: 06/29/16 09:18 Dose: 25 mg Montelukast Sodium (Singulair) 10 mg PO [facility] Last Admin: 06/28/16 23:40 Dose: 10 mg Ranolazine (Ranexa) 500 mg PO BID [facility] Last Admin: 06/29/16 09:18 Dose: 500 mg Rosuvastatin Calcium (Crestor) 10 mg PO [facility] Last Admin: 06/28/16 22:10 Dose: 10 mg - Labs Labs: 06/24/16 06:28 06/24/16 06:26 PT 15.1 SECONDS (9.7-12.2) H 06/19/16 10:11 INR 1.3 06/19/16 10:11 APTT 28 SECONDS (21-34) 06/19/16 10:11 - Additional Findings Additional findings: - Constitutional Appears: Non-toxic, Chronically Ill - Head Exam Head Exam: ATRAUMATIC, NORMAL INSPECTION, NORMOCEPHALIC - Eye Exam Eye Exam: EOMI, Normal appearance Pupil Exam: NORMAL ACCOMODATION - ENT Exam ENT Exam: Mucous Membranes Moist, Normal Exam - Neck Exam Neck Exam: Full ROM, Normal Inspection. absent: Lymphadenopathy, Tenderness - Respiratory Exam Respiratory Exam: Clear to Ausculation Bilateral, NORMAL BREATHING PATTERN. absent: Rales, Rhonchi, Wheezes - Cardiovascular Exam Cardiovascular Exam: REGULAR RHYTHM, RRR, +S1, +S2. absent: Diastolic murmur, Murmur - GI/Abdominal Exam GI & Abdominal Exam: Soft, Normal Bowel Sounds. absent: Distended, Firm, Guarding, Rigid, Tenderness - Extremities Exam Extremities Exam: Normal Capillary Refill, Normal Inspection. absent: Joint Swelling, Pedal Edema - Neurological Exam Neurological Exam: Alert, Awake, CN II-XII Intact, Oriented x3 - Skin Skin Exam: Dry, Intact, Normal Color, Warm Assessment and Plan (1) Systolic congestive heart failure, NYHA class 3 Assessment & Plan: Continue - Aspirin 81mg PO Daily - Coreg 6.25mg PO Daily - Plavix 75mg PO Daily - Crestor 10mg PO HS - Cozaar 25mg PO Daily - Lasix 20mg IV Q12 Continue Current management Cardiac Stable Hemodynamically Stable O2 via nasal cannula as needed Troponin Negative x 3 (0.0140 > 0.0420 > 0.0420) CK MB Negative x 3 (0.82 > 1.25 > 0.79) 06/19/16 EKG- sinus tachycardia (101bpm), normal [place] and QRS duration, prolonged QTc, PACs, Q waves (unchanged from previous), LVH 05/30/16 EKG- sinus rhythm (71bpm), normal intervals, PACs, Q waves in II, III, AVF, V1, V2 (inferior and anterior infarcts undetermined) 12/29/15 Cardiac Cath- PCI of mid RCA with 2.5mm x 18mm Xience GARRY, severe 2- vessel disease (99% occlusion of RCA AKASH II flow, 20% stenosis distal left main , 80-90% stenosis proximal LAD, 90% stenosis mid LAD, 95% apical stenosis LAD, EF 30-35%) 06/25/16 Echo- LV EF 52%. akinesis and thinning of the basal and mid inferior wall and septal wall segments (indicative of prior [place]), severe mitral regurg, miderator tricuspid regurg, grade II-pseudonormal filling dynamics 05/15/16 Echo- LV EF 62%, normal diastolic filling pressures Case Discussed with Dr. Sj Marrero PGY1 Status: Acute (2) CAD S/P percutaneous coronary angioplasty Assessment & Plan: PCI with Dr. Cunningham 12/29/15 Cardiac Cath- PCI of mid RCA with 2.5mm x 18mm Xience GARRY, severe 2- vessel disease (99% occlusion of RCA AKASH II flow, 20% stenosis distal left main , 80-90% stenosis proximal LAD, 90% stenosis mid LAD, 95% apical stenosis LAD, EF 30-35%) Status: Chronic (3) CAD (coronary artery disease) Status: Chronic <Iraida Gustafson - Last Filed: 07/21/16 10:24> Objective - Vital Signs/Intake and Output Vital Signs (last 24 hours): Temp Pulse Resp BP Pulse Ox 98.6 F 75 20 121/60 18 L 06/30/16 16:29 06/30/16 16:29 06/30/16 07:44 06/30/16 16:29 06/30/16 16:29 - Labs Labs: 06/24/16 06:28 06/24/16 06:26 PT 15.1 SECONDS (9.7-12.2) H 06/19/16 10:11 INR 1.3 06/19/16 10:11 APTT 28 SECONDS (21-34) 06/19/16 10:11 Attending/Attestation - Attestation I have personally seen and examined this patient.: Yes I have fully participated in the care of the patient.: Yes I have reviewed all pertinent clinical information, including history, physical exam and plan: Yes Notes (Text): 07/21/16 10:23 Pt stable tolerating PO no VT
--- NOTE | 2016-06-29 11:22 | CP.PCM.PN ---
Subjective - Date & Time of Evaluation Date of Evaluation: 06/29/16 Time of Evaluation: 09:15 - Subjective Subjective: Medicine Progress Note Patient seen and examined. Patient states that she feels better today. Patient was accepted to [facility] yesterday because she no longer has [facility] days left this year. However, the patient and her daughter did not want the patient to go yesterday so the discharge was cancelled. Denies fever, chills, nausea, vomiting, chest pain and shortness of breath. Objective - Vital Signs/Intake and Output Vital Signs (last 24 hours): Temp Pulse Resp BP Pulse Ox 98.2 F 71 20 113/64 95 06/29/16 09:34 06/29/16 09:34 06/29/16 09:34 06/29/16 09:34 06/29/16 09:34 Intake and Output: 06/29/16 06/29/16 06:59 18:59 Intake Total 850 Balance 850 - Medications Medications: Current Medications Acetaminophen/Butalbital/Caffeine (Fioricet) 1 tab PO Q4 PRN PRN Reason: Headache Last Admin: 06/28/16 19:59 Dose: 1 tab Alprazolam (Xanax) 0.25 mg PO DAILY [facility] Stop: 06/30/16 10:01 Last Admin: 06/29/16 09:18 Dose: 0.25 mg Aspirin (Aspirin) 325 mg PO DAILY [facility] Last Admin: 06/29/16 09:18 Dose: 325 mg Carvedilol (Coreg) 6.25 mg PO BID [facility] Last Admin: 06/21/16 09:38 Dose: 6.25 mg Clopidogrel Bisulfate (Plavix) 75 mg PO DAILY [facility] Last Admin: 06/29/16 09:18 Dose: 75 mg Escitalopram Oxalate (Lexapro) 5 mg PO DAILY [facility] Last Admin: 06/29/16 09:20 Dose: 5 mg Famotidine (Pepcid) 20 mg PO DAILY [facility] Last Admin: 06/29/16 09:18 Dose: 20 mg Furosemide (Lasix) 20 mg IVP Q12H [facility] Last Admin: 06/29/16 04:19 Dose: 20 mg Lorazepam (Ativan) 1 mg IVP Q8H PRN PRN Reason: Anxiety Last Admin: 06/28/16 00:36 Dose: 1 mg Losartan Potassium (Cozaar) 25 mg PO DAILY [facility] Last Admin: 06/29/16 09:18 Dose: 25 mg Montelukast Sodium (Singulair) 10 mg PO HS [facility] Last Admin: 06/28/16 23:40 Dose: 10 mg Ranolazine (Ranexa) 500 mg PO BID [facility] Last Admin: 06/29/16 09:18 Dose: 500 mg Rosuvastatin Calcium (Crestor) 10 mg PO HS [facility] Last Admin: 06/28/16 22:10 Dose: 10 mg - Labs Labs: 06/24/16 06:28 06/24/16 06:26 PT 15.1 SECONDS (9.7-12.2) H 06/19/16 10:11 INR 1.3 06/19/16 10:11 APTT 28 SECONDS (21-34) 06/19/16 10:11 - Constitutional Appears: Non-toxic, No Acute Distress, Chronically Ill - Eye Exam Eye Exam: EOMI, Normal appearance - ENT Exam ENT Exam: Mucous Membranes Moist - Respiratory Exam Respiratory Exam: Clear to Ausculation Bilateral, NORMAL BREATHING PATTERN. absent: Rhonchi, Wheezes - Cardiovascular Exam Cardiovascular Exam: REGULAR RHYTHM, +S1, +S2 - GI/Abdominal Exam GI & Abdominal Exam: Soft, Normal Bowel Sounds. absent: Firm, Guarding, Tenderness - Extremities Exam Extremities Exam: Normal Inspection. absent: Pedal Edema - Neurological Exam Neurological Exam: Alert, Awake, Oriented x3 - Psychiatric Exam Psychiatric exam: Normal Affect, Normal Mood - Skin Skin Exam: Dry, Intact, Normal Color, Warm Assessment and Plan - Assessment and Plan (Free Text) Assessment: 81 year old female, with PMHx of CAD, HTN, CHF, COPD, RA, Anxiety, and Dementia. Pt presents for acute SOB. She was intubated in field by EMS, given 3SL NTG, and IV Lasix. This is her 6th admission for CHF/flash pulm edema in 2 months. Pt started on Entresto but held due to hypotension. 1) Respiratory Failure RESOLVED, Pt extubated on 06/21 Patient with Hx of COPD Duonebs Q6H [facility] Singulair 10mg PO HS Breathing well on NC O2 2) Congestive Heart Failure Dr. Kelley - cardio consult - help appreciated ECHO (01/12)- Read as: 55% EF, severe MR, moderate to severe TR, moderate pulmonary HTN - Lasix 20mg IV Q12H - Pt may benefit from mitral clip - no repeat necessary, but Dr. Kelley feels true EF is lower than as read - NM Muga scan/ for assessment of EF: Calculated EF of 32% As per conversation with Dr. Kelley 06/27/16, he recommends conservative treatment at this time given patient's DNR status. However, if patient wishes to have more aggressive measures, patient could be evaluated by EP cardio for pacemaker placement. However, due to patient's fragile condition, conservative treatment is recommended, but ultimately up to patient and family wishes. BNP 2260 (in line w. previous admission: 2790, 2960, 3500, 7510, 4380) CXR (06/19/16): Interval increased diffuse b/l infiltrates likely representing CH /pulm edema (see full report) CXR (06/21/16): Biapical pleural thickening with upper lobe granulomatous changes. Mild venous congestion. Mild patchy bibasilar airspace opacities. (see report) Cardiac Cath (12/31/15): Severe 2-vessel CAD. Successful PCI at mid right coronary w. GARRY. Severe lt ventricular systolic dysfunction (see full report) ASA 325mg PO daily Coreg 6.25mg PO BID (hold) Plavix 75mg PO Daily Ranolazine 500mg PO BID Losartan 25mg PO Daily (hold) 3) Abnormal EKG EKG - Sinus tachycardia with PACs. Left axis deviation. LVH w. QRS widening and repolarization abnormality. Inferior infarct, age undetermined. Lipid profile WNL (05/27 admission) ASA 325mg PO daily Crestor 10mg PO HS History of CAD. Dr. Kelley - cardio consult - recommendations as above 4) Hypotension - resolved, no longer on pressors - Holding Coreg,Losartan - Lasix 20mg IV Q12H 5) Anxiety and Depression Tearful this morning, denies SI/HI Xanax 1mg PO BID PRN Lexapro 5mg PO daily 6) Rheumatoid Arthritis - pt family reports Percocet use for pain - Will order Percocet 5/325 1 tab PO Q4H as needed- one time doses. 7) Prophylaxis - Heparin 5000 units SC Q12 - Pepcid 20mg PO daily - SCDs Management as per Dr. Beck. Discharge planning.
[2016-06-29] MEDS: Apap-Butalbital-Caffeine 325-50-40mg Tab PO PRN (20:36)
[2016-06-29] MEDS ORDERED: Benzocaine/Menthol (Cepacol) Lozenge MT PRN (21:02)
[2016-06-30] MEDS ORDERED: Albuterol-Ipratrop 3 mg / 0.5 (3 ml) UD INH STA (02:03)
--- NOTE | 2016-06-30 09:50 | CP.PCM.PN ---
Subjective - Date & Time of Evaluation Date of Evaluation: 06/30/16 Time of Evaluation: 09:20 - Subjective Subjective: Medicine Progress Note- Dr. Beck's Service: Patient seen and examined at bedside this AM. Patient is confused and agitated this AM at the idea of discharge. Patient refusing [facility] care.Denies pain at this time. She has no other complaints today other than anxiety. Daughter at bedside. Plan for discharge discussed with daughter, who would prefer patient go to [facility] which she refuses. Objective - Vital Signs/Intake and Output Vital Signs (last 24 hours): Temp Pulse Resp BP Pulse Ox 98.9 F 83 20 121/66 97 06/30/16 07:44 06/30/16 07:44 06/30/16 07:44 06/30/16 07:44 06/30/16 07:44 Intake and Output: 06/30/16 06/30/16 06:59 18:59 Intake Total 240 Balance 240 - Medications Medications: Current Medications Acetaminophen/Butalbital/Caffeine (Fioricet) 1 tab PO Q4 PRN PRN Reason: Headache Last Admin: 06/29/16 20:36 Dose: 1 tab Alprazolam (Xanax) 0.25 mg PO DAILY [facility] Stop: 06/30/16 10:01 Last Admin: 06/29/16 09:18 Dose: 0.25 mg Aspirin (Aspirin) 325 mg PO DAILY [facility] Last Admin: 06/29/16 09:18 Dose: 325 mg Benzocaine/Menthol (Cepacol Sore Throat) 1 [address] MT Q4H PRN PRN Reason: Sore Throat Carvedilol (Coreg) 6.25 mg PO BID [facility] Last Admin: 06/21/16 09:38 Dose: 6.25 mg Clopidogrel Bisulfate (Plavix) 75 mg PO DAILY [facility] Last Admin: 06/29/16 09:18 Dose: 75 mg Escitalopram Oxalate (Lexapro) 5 mg PO DAILY [facility] Last Admin: 06/29/16 09:20 Dose: 5 mg Famotidine (Pepcid) 20 mg PO DAILY [facility] Last Admin: 06/29/16 09:18 Dose: 20 mg Furosemide (Lasix) 20 mg IVP Q12H [facility] Last Admin: 06/30/16 04:36 Dose: 20 mg Lorazepam (Ativan) 1 mg IVP Q8H PRN PRN Reason: Anxiety Last Admin: 06/30/16 06:29 Dose: 1 mg Losartan Potassium (Cozaar) 25 mg PO DAILY [facility] Last Admin: 06/29/16 09:18 Dose: 25 mg Montelukast Sodium (Singulair) 10 mg PO HS [facility] Last Admin: 06/29/16 21:28 Dose: 10 mg Ranolazine (Ranexa) 500 mg PO BID [facility] Last Admin: 06/29/16 17:34 Dose: 500 mg Rosuvastatin Calcium (Crestor) 10 mg PO HS [facility] Last Admin: 06/29/16 21:28 Dose: 10 mg - Labs Labs: 06/24/16 06:28 06/24/16 06:26 PT 15.1 SECONDS (9.7-12.2) H 06/19/16 10:11 INR 1.3 06/19/16 10:11 APTT 28 SECONDS (21-34) 06/19/16 10:11 - Constitutional Appears: No Acute Distress, Cachectic, Chronically Ill - Head Exam Head Exam: NORMAL INSPECTION, NORMOCEPHALIC - Eye Exam Eye Exam: EOMI - ENT Exam ENT Exam: Mucous Membranes Moist Additional comments: Poor dentition - Respiratory Exam Respiratory Exam: Clear to Ausculation Bilateral, NORMAL BREATHING PATTERN - Cardiovascular Exam Cardiovascular Exam: REGULAR RHYTHM, +S1, +S2 - GI/Abdominal Exam GI & Abdominal Exam: Soft. absent: Distended, Tenderness - Extremities Exam Extremities Exam: Normal Inspection. absent: Pedal Edema, Tenderness - Neurological Exam Neurological Exam: Alert, Awake, Oriented x3 Assessment and Plan - Assessment and Plan (Free Text) Assessment: 81 year old female, with PMHx of CAD, HTN, CHF, COPD, RA, Anxiety, and Dementia. Pt presents for acute SOB. She was intubated in field by EMS, given 3SL NTG, and IV Lasix. This is her 6th admission for CHF/flash pulm edema in 2 months. Pt started on Entresto but held due to hypotension. 1) Respiratory Failure RESOLVED, Pt extubated on 06/21 Patient with Hx of COPD Duonebs Q6H [facility] Singulair 10mg PO HS Breathing well on [place] O2 2) Congestive Heart Failure Dr. Kelley - cardio consult - help appreciated ECHO (01/12)- Read as: 55% EF, severe MR, moderate to severe TR, moderate pulmonary HTN - Lasix 20mg IV Q12H - Pt may benefit from mitral clip - no repeat necessary, but Dr. Kelley feels true EF is lower than as read - NM Muga scan/ for assessment of EF: Calculated EF of 32% As per conversation with Dr. Kelley 06/27/16, he recommends conservative treatment at this time given patient's DNR status. However, if patient wishes to have more aggressive measures, patient could be evaluated by EP cardio for pacemaker placement. However, due to patient's fragile condition, conservative treatment is recommended, but ultimately up to patient and family wishes. BNP 2260 (in line w. previous admission: 2790, 2960, 3500, 7510, 4380) CXR (06/19/16): Interval increased diffuse b/l infiltrates likely representing CH /pulm edema (see full report) CXR (06/21/16): Biapical pleural thickening with upper lobe granulomatous changes. Mild venous congestion. Mild patchy bibasilar airspace opacities. (see report) Cardiac Cath (12/31/15): Severe 2-vessel CAD. Successful PCI at mid right coronary w. GARRY. Severe lt ventricular systolic dysfunction (see full report) ASA 325mg PO daily Coreg 6.25mg PO BID Plavix 75mg PO Daily Ranolazine 500mg PO BID Losartan 25mg PO Daily Crestor 10mg PO HS 3) Abnormal EKG EKG - Sinus tachycardia with PACs. Left axis deviation. LVH w. QRS widening and repolarization abnormality. Inferior infarct, age undetermined. Lipid profile WNL (05/27 admission) ASA 325mg PO daily Crestor 10mg PO HS History of CAD. Dr. Kelley - cardio consult - recommendations as above 4) Hypotension - resolved, no longer on pressors - Coreg, Losartan - Lasix 20mg IV Q12H change to PO. 5) Anxiety and Depression Xanax 0.25 mg PO daily PRN Lexapro 5mg PO daily 6) Rheumatoid Arthritis - pt family reports Percocet use for pain 7) Prophylaxis - Heparin 5000 units SC Q12 - Pepcid 20mg PO daily - SCDs Management as per Dr. Beck. Discharge planning.
--- NOTE | 2016-06-30 10:01 | CP.PCM.PN ---
<Les Marrero - Last Filed: 06/30/16 09:53> Subjective - Date & Time of Evaluation Date of Evaluation: 06/30/16 Time of Evaluation: 09:53 - Subjective Subjective: Cardiology Progress Note Dr. Gustafson (covering for Dr. Kelley) Patient seen and examined at the bedside. The patient is in no acute distress. No acute events overnight. The nursing staff reports no issues. The patient reports minimal right sided chest pain overnight that has resolved. The patient is resting comfortably in bed. 12 point review of systems was preformed and returned negative except for the above stated complaints. Objective - Vital Signs/Intake and Output Vital Signs (last 24 hours): Temp Pulse Resp BP Pulse Ox 98.9 F 83 20 121/66 97 06/30/16 07:44 06/30/16 07:44 06/30/16 07:44 06/30/16 07:44 06/30/16 07:44 Intake and Output: 06/30/16 06/30/16 06:59 18:59 Intake Total 240 Balance 240 - Medications Medications: Current Medications Acetaminophen/Butalbital/Caffeine (Fioricet) 1 tab PO Q4 PRN PRN Reason: Headache Last Admin: 06/29/16 20:36 Dose: 1 tab Alprazolam (Xanax) 0.25 mg PO DAILY [facility] Stop: 06/30/16 10:01 Last Admin: 06/29/16 09:18 Dose: 0.25 mg Aspirin (Aspirin) 325 mg PO DAILY [facility] Last Admin: 06/29/16 09:18 Dose: 325 mg Benzocaine/Menthol (Cepacol Sore Throat) 1 [address] MT Q4H PRN PRN Reason: Sore Throat Carvedilol (Coreg) 6.25 mg PO BID [facility] Last Admin: 06/21/16 09:38 Dose: 6.25 mg Clopidogrel Bisulfate (Plavix) 75 mg PO DAILY [facility] Last Admin: 06/29/16 09:18 Dose: 75 mg Escitalopram Oxalate (Lexapro) 5 mg PO DAILY [facility] Last Admin: 06/29/16 09:20 Dose: 5 mg Famotidine (Pepcid) 20 mg PO DAILY [facility] Last Admin: 06/29/16 09:18 Dose: 20 mg Furosemide (Lasix) 20 mg IVP Q12H [facility] Last Admin: 06/30/16 04:36 Dose: 20 mg Lorazepam (Ativan) 1 mg IVP Q8H PRN PRN Reason: Anxiety Last Admin: 06/30/16 06:29 Dose: 1 mg Losartan Potassium (Cozaar) 25 mg PO DAILY [facility] Last Admin: 06/29/16 09:18 Dose: 25 mg Montelukast Sodium (Singulair) 10 mg PO HS [facility] Last Admin: 06/29/16 21:28 Dose: 10 mg Ranolazine (Ranexa) 500 mg PO BID [facility] Last Admin: 06/29/16 17:34 Dose: 500 mg Rosuvastatin Calcium (Crestor) 10 mg PO HS [facility] Last Admin: 06/29/16 21:28 Dose: 10 mg - Labs Labs: 06/24/16 06:28 06/24/16 06:26 PT 15.1 SECONDS (9.7-12.2) H 06/19/16 10:11 INR 1.3 06/19/16 10:11 APTT 28 SECONDS (21-34) 06/19/16 10:11 - Additional Findings Additional findings: - Constitutional Appears: Non-toxic, Chronically Ill - Head Exam Head Exam: ATRAUMATIC, NORMAL INSPECTION, NORMOCEPHALIC - Eye Exam Eye Exam: EOMI, Normal appearance Pupil Exam: NORMAL ACCOMODATION - ENT Exam ENT Exam: Mucous Membranes Moist, Normal Exam - Neck Exam Neck Exam: Full ROM, Normal Inspection. absent: Lymphadenopathy, Tenderness - Respiratory Exam Respiratory Exam: Clear to Ausculation Bilateral, NORMAL BREATHING PATTERN. absent: Rales, Rhonchi, Wheezes - Cardiovascular Exam Cardiovascular Exam: REGULAR RHYTHM, RRR, +S1, +S2. absent: Diastolic murmur, Murmur - GI/Abdominal Exam GI & Abdominal Exam: Soft, Normal Bowel Sounds. absent: Distended, Firm, Guarding, Rigid, Tenderness - Extremities Exam Extremities Exam: Normal Capillary Refill, Normal Inspection. absent: Joint Swelling, Pedal Edema - Neurological Exam Neurological Exam: Alert, Awake, CN II-XII Intact, Oriented x3 - Skin Skin Exam: Dry, Intact, Normal Color, Warm Assessment and Plan (1) Systolic congestive heart failure, NYHA class 3 Assessment & Plan: Continue - Aspirin 81mg PO Daily - Coreg 6.25mg PO Daily - Plavix 75mg PO Daily - Crestor 10mg PO HS - Cozaar 25mg PO Daily - Lasix 20mg IV Q12 Continue Current management Cardiac Stable Hemodynamically Stable O2 via nasal cannula as needed Troponin Negative x 3 (0.0140 > 0.0420 > 0.0420) CK MB Negative x 3 (0.82 > 1.25 > 0.79) 06/25/16 Echo- LV EF 52%. akinesis and thinning of the basal and mid inferior wall and septal wall segments (indicative of prior [place]), severe mitral regurg, miderator tricuspid regurg, grade II-pseudonormal filling dynamics 06/19/16 EKG- sinus tachycardia (101bpm), normal [place] and QRS duration, prolonged QTc, PACs, Q waves (unchanged from previous), LVH 05/30/16 EKG- sinus rhythm (71bpm), normal intervals, PACs, Q waves in II, III, AVF, V1, V2 (inferior and anterior infarcts undetermined) 12/29/15 Cardiac Cath- PCI of mid RCA with 2.5mm x 18mm Xience GARRY, severe 2- vessel disease (99% occlusion of RCA AKASH II flow, 20% stenosis distal left main , 80-90% stenosis proximal LAD, 90% stenosis mid LAD, 95% apical stenosis LAD, EF 30-35%) 05/15/16 Echo- LV EF 62%, normal diastolic filling pressures Case Discussed with Dr. Sj Marrero PGY1 Status: Acute (2) CAD S/P percutaneous coronary angioplasty Status: Chronic (3) CAD (coronary artery disease) Status: Chronic <Iraida Gustafson - Last Filed: 07/21/16 10:23> Objective - Vital Signs/Intake and Output Vital Signs (last 24 hours): Temp Pulse Resp BP Pulse Ox 98.6 F 75 20 121/60 18 L 06/30/16 16:29 06/30/16 16:29 06/30/16 07:44 06/30/16 16:29 06/30/16 16:29 - Labs Labs: 06/24/16 06:28 06/24/16 06:26 PT 15.1 SECONDS (9.7-12.2) H 06/19/16 10:11 INR 1.3 06/19/16 10:11 APTT 28 SECONDS (21-34) 06/19/16 10:11 Attending/Attestation - Attestation I have personally seen and examined this patient.: Yes I have fully participated in the care of the patient.: Yes I have reviewed all pertinent clinical information, including history, physical exam and plan: Yes Notes (Text): 07/21/16 10:23 continue coreg asa follow up with Dr. Kelley
[2016-06-30] MEDS: Ranolazine 500 mg Extended Release Tablets PO SCH ×2 (10:11→17:26)
[2016-06-30 16:05] VITALS: BP 121/60
[2016-06-30 16:30] VITALS: PULSE 75; TEMP 98.6; O2SAT 18
[2016-06-30] MEDS: Apap-Butalbital-Caffeine 325-50-40mg Tab PO PRN (18:15)
--- NOTE | 2016-07-04 14:00 | DS ---
The patient was admitted to the hospital with chief complaint of shortness of breath, weakness, fatig ue, tiredness. The patient found to be in heart failure. Started on IV Lasix, bronchodilators. The patient remained confused and weak, required 1:1. The patient gradually improved. Discharged to [facility]. The patient is being discharged today. Follow up a intermediate. DIAGNOSES: Heart failure, coronary artery disease, anxiety. Gisselle Vogel MD cc: [id number] TT: 07/04/2016 13:52:14 en
--- NOTE | 2016-07-05 08:27 | PCM.HF ---
Heart Failure Core Measure - Heart Failure Ejection Fraction: 40 % or Greater KANDIS Inhibitor Prescribed: No Contraindication/Reason for not providing: ef>45 Beta-Wesley Prescribed: Carvedilol Angiotensin II Receptor Wesley Prescribed: No Contraindication/Reason for not providing: ef>45 AnticoagulationTherapy for Atrial Fibrillation/Atrialflutter: No Contraindication/Reason for not providing: no hx of afib Aldosterone Antagonist Prescribed: No Contraindication/Reason for not providing: ef>45 Hydralazine Nitrate Prescribed: No Contraindication/Reason for not providing: ef>45 Implantable Cardioverter Defibrillator Therapy: No Contraindication/Reason for not providing: ef>45 Cardiac Resynchronization Therapy Prescribed: No Contraindication/Reason for not providing: ef>45 - Follow up Will be discharged to: Home Follow Up Date (must be within 7 days from discharge): 07/05/16 Follow Up Time: 09:00
--- NOTE | 2016-07-05 19:14 | PCM.HF ---
Heart Failure Core Measure - Heart Failure Ejection Fraction: Less Than 40 % Left Ventricular Function to be assessed after discharge: No KANDIS Inhibitor Prescribed: No Contraindication/Reason for not providing: Patient on ARB Beta-Wesley Prescribed: Carvedilol Angiotensin II Receptor Wesley Prescribed: Yes AnticoagulationTherapy for Atrial Fibrillation/Atrialflutter: No Contraindication/Reason for not providing: No A fib or A flutter Aldosterone Antagonist Prescribed: No Contraindication/Reason for not providing: Not indicated Hydralazine Nitrate Prescribed: No Contraindication/Reason for not providing: Not indicated Implantable Cardioverter Defibrillator Therapy: No Contraindication/Reason for not providing: Patient in sinus rhythm. No pacemaker as per patient and family. Contraindication/Reason for not providing: Patient in sinus rhythm. No pacemaker as per patient and family. - Follow up Will be discharged to: Home Follow Up Date (must be within 7 days from discharge): 07/01/16 Follow Up Time: 09:00 (As per Dr. Beck. )
== END 2016-06-30 19:48 | disposition home health service (06) | DRG 291 ==
LOC: C.ER 09:48 → C.9E 11:08 → C.9I 11:35 → C.5T 06-27 15:55
PROVIDERS: ADMIT Internal Medicine Pulmonary Disease; ATTEND Internal Medicine Pulmonary Disease
PROC: 5A1935Z Respiratory Ventilation, Less than 24 Consecutive Hours (ICD-10-PCS; principal; 2016-06-19)
DX: I11.0 Hypertensive heart disease with heart failure (principal); J96.90 Respiratory failure, unspecified, unspecified whether with hypoxia or hypercapnia; J44.9 Chronic obstructive pulmonary disease, unspecified; I95.9 Hypotension, unspecified; I27.2 Other secondary pulmonary hypertension; E11.9 Type 2 diabetes mellitus without complications; F03.90 Unspecified dementia, unspecified severity, without behavioral disturbance, psychotic disturbance, mood disturbance, and anxiety; I34.2 Nonrheumatic mitral (valve) stenosis; I25.10 Atherosclerotic heart disease of native coronary artery without angina pectoris; I50.23 Acute on chronic systolic (congestive) heart failure; M06.9 Rheumatoid arthritis, unspecified; Z66 Do not resuscitate; G43.909 Migraine, unspecified, not intractable, without status migrainosus; Z51.5 Encounter for palliative care; J45.909 Unspecified asthma, uncomplicated; F32.9 Major depressive disorder, single episode, unspecified; M81.0 Age-related osteoporosis without current pathological fracture; F41.9 Anxiety disorder, unspecified; Z95.5 Presence of coronary angioplasty implant and graft; Z87.01 Personal history of pneumonia (recurrent); I25.2 Old myocardial infarction

== ENCOUNTER 2016-07-04 09:12 | Inpatient (IN) | payer MEDICARE, MEDICAID ==
[2016-07-04 09:12] VITALS: BMI 18.1
--- NOTE | 2016-07-04 09:25 | C.PDOC ---
History Of Present Illness 81 y/o female pmhx HTN, CHF, COPD presents to the ED with complains of SOB. Pt with recent admission for CHF, EF 35%. 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 On arrival, pt on bipap, tolerating well. Denies pain. History limited secondary to patient condition. Time Seen by Provider: 07/04/16 09:15 Chief Complaint (Nursing): Respiratory Distress History Per: Patient History/Exam Limitations: clinical condition Onset/Duration Of Symptoms: Hrs Current Symptoms Are (Timing): Still Present Severity: Severe Recent travel outside of the [place]: No Additional History Per: EMS Past Medical History Reviewed: Historical Data, Nursing Documentation, Vital Signs Vital Signs: Last Vital Signs Temp 97.5 F L 07/04/16 10:28 Pulse 99 H 07/04/16 12:32 Resp 19 07/04/16 12:32 BP 118/49 L 07/04/16 12:32 Pulse Ox 100 07/04/16 12:32 - Medical History PMH: Anxiety, Arthritis, Asthma, CHF, COPD, Dementia, Diabetes, Gall Bladder Disease, HTN, Osteoporosis, Pneumonia (08/2015), Rheumatoid Arthritis Surgical History: Cholecystectomy, Coronary Stent (proximal RCA stent, 2 weeks ago) [facility] Procedures ASSISTANCE WITH RESPIRATORY VENTILATION, <24 HRS, CPAP (01/17/16) ASSISTANCE WITH RESPIRATORY VENTILATION, >96 HRS, CPAP (02/28/16) CONTINUOUS INVASIVE MECHANICAL VENTILATION <96 CONSEC HRS (08/07/12) DILATION OF 1 COR ART WITH DRUG-ELUT INTRA, PERC APPROACH (12/29/15) INJECT/INFUSE NEC (02/11/14) LAPAROSCOPIC CHOLECYSTECTOMY (08/07/12) NEBULIZER THERAPY (09/10/13) OXYGEN ENRICHMENT NEC (08/07/12) RESPIRATORY VENTILATION, LESS THAN 24 CONSECUTIVE HOURS (06/19/16) VITAL CAPACITY DETERMIN (08/07/12) Family History: States: Unknown Family Hx - Social History Hx Tobacco Use: No Hx Alcohol Use: No Hx Substance Use: No - Immunization History Hx Tetanus Toxoid Vaccination: No Hx Influenza Vaccination: No Hx Pneumococcal Vaccination: No Review Of Systems Review Of Systems: ROS cannot be obtained secondary to pt's inabilty to answer questions. Respiratory: Positive for: Shortness of Breath Physical Exam - Physical Exam Appears: Non-toxic, In Acute Distress Skin: Warm, Dry, No Rash Head: Atraumatic, Normacephalic Neck: Normal, Normal ROM, Supple Chest: Symmetrical, No Tenderness Cardiovascular: Rhythm Regular, No Murmur Respiratory: Rales (bilateral), No Rhonchi, No Wheezing Gastrointestinal/Abdominal: Soft Extremity: Normal ROM, No Pedal Edema Extremity: Bilateral: Atraumatic Neurological/Psych: Oriented x3 ED Course And Treatment - Laboratory Results Result Diagrams: 07/04/16 10:25 07/04/16 10:11 ECG: Interpreted By Me, Viewed By Me ECG Rhythm: Sinus Tachycardia Interpretation Of ECG: PVCs, no interval changes from previous EKG. Rate From EC (BPM) Medical Decision Making Medical Decision Making: Plan: * EKG * CXR * labs * UA * IV fluids Discussed case with Dr. Louie, states patient not an ICU candidate, admit to tele. Discussed case with Dr. Beck, accepts patient for admission. Pt tolerating bipap on reevaluation, breathing improved. Discussed patient condition with family at bedside, request DNI/DNR status. cxr chf as read by me. nonspecific opacities, suspect chf. mild leukocytosis, pt afebrile, and la neg. Disposition - Disposition Disposition: HOSPITALIZED Disposition Time: 12:58 Condition: FAIR - Clinical Impression Clinical Impression: CHF exacerbation, Leukocytosis - Scribe Statement The provider has reviewed the documentation as recorded by the Ritu Varghese Provider Attestation: All medical record entries made by the Joviibronal were at my direction and personally dictated by me. I have reviewed the chart and agree that the record accurately reflects my personal performance of the history, physical exam, medical decision making, and the department course for this patient. I have also personally directed, reviewed, and agree with the discharge instructions and disposition. Decision To Admit - Pt Status Changed To: Hospital Disposition Of: Inpatient - Admit Certification Admit to Inpatient:: After my assessment, the patient will require hospitalization for at least two midnights. This is because of the severity of symptoms shown, intensity of services needed, and/or the medical risk in this patient being treated as an outpatient. - InPatient: Physician Admission Certification: I certify that this patient requires 2 or more midnights of care for the following reason:: on bipap, with chf - . Bed Request Type: Telemetry Admitting Physician: Gisselle Beck Patient Diagnosis: CHF exacerbation, Leukocytosis
[2016-07-04] MEDS ORDERED: Nitroglycerin 50mg in D5W 50 MG/250 ML BOTTLE IV SCH (09:45)
[2016-07-04 10:18] LABS: VENOUS BLOOD GAS PCO2 47 mmHg (40-60); VENOUS BLOOD PH 7.21 (7.32-7.43)
[2016-07-04 10:20] LABS: BASO # 0.1 K/uL (0.0-0.2); BASO % 1.1 % (0.0-2.0); EOS # 0.2 K/uL (0.0-0.7); EOS % 1.7 % (0.0-4.0); HEMATOCRIT 33.1 % (34.0-47.0); LYMPH # 1.8 K/uL (1.0-4.3); LYMPH % 15.5 % (20.0-40.0); MEAN CELL VOLUME 72.1 fL (81.0-99.0); MEAN CORPUSCULAR HEMOGLOBIN 22.5 pg (27.0-31.0); MEAN CORPUSCULAR HGB CONC 31.2 g/dL (33.0-37.0); MEAN PLATELET VOLUME 10.2 fL (7.2-11.7); MONO # 0.8 K/uL (0.0-0.8); MONO % 6.5 % (0.0-10.0); WHITE BLOOD COUNT 11.7 K/uL (4.8-10.8)
[2016-07-04] MEDS ORDERED: Nitroglycerin 50mg in D5W 50 MG/250 ML BOTTLE IV ONE (10:20)
[2016-07-04 10:27] LABS: POTASSIUM 4.1 mmol/L (3.6-5.2)
[2016-07-04 10:29] LABS: BILIRUBIN,TOTAL 0.6 mg/dL (0.2-1.3)
[2016-07-04 10:30] LABS: ALB/GLOB RATIO 1.1 (1.0-2.1); CALCIUM 8.3 mg/dl (8.6-10.4); INR 1.2; TOTAL PROTEIN 7.8 g/dL (6.3-8.3)
[2016-07-04 10:35] LABS: RBC URINE < 1 /hpf (0-3); URINE BILIRUBIN NEGATIVE (NEGATIVE); URINE BLOOD NEGATIVE (NEGATIVE); URINE COLOR Colorless (YELLOW); URINE GLUCOSE (UA) NORMAL (Normal); URINE KETONE NEGATIVE (NEGATIVE); URINE LEUKOCYTE ESTERASE NEG Leu/uL (Negative); URINE PROTEIN NEGATIVE (NEGATIVE); URINE UROBILINOGEN NORMAL mg/dL (0.2-1.0); WBC URINE < 1 /hpf (0-5)
[2016-07-04 10:43] LABS: TROPONIN I 0.023 ng/mL (0.00-0.120)
--- NOTE | 2016-07-04 12:27 | CP.PCM.PN ---
Subjective - Date & Time of Evaluation Date of Evaluation: 07/04/16 Time of Evaluation: 11:35 - Subjective Subjective: Medicine Note- Dr. Beck's service Patient was seen and examined at bedside. Patient reports that she has been feeling short of breath, unable to say for how long. She says she told her niece to call the ambulance. She reports being compliant with all her medications. Her family was concerned that it may be an exacerbation of her heart failure. Objective - Vital Signs/Intake and Output Vital Signs (last 24 hours): Temp Pulse Resp BP Pulse Ox 97.5 F L 97 H 22 114/59 L 100 07/04/16 10:28 07/04/16 11:55 07/04/16 11:55 07/04/16 11:55 07/04/16 11:55 - Labs Labs: PT 13.2 SECONDS (9.7-12.2) H 07/04/16 10:11 INR 1.2 07/04/16 10:11 APTT 26 SECONDS (21-34) 07/04/16 10:11 - Constitutional Appears: Non-toxic, No Acute Distress, Cachectic, Chronically Ill - Head Exam Head Exam: ATRAUMATIC, NORMAL INSPECTION, NORMOCEPHALIC - Eye Exam Pupil Exam: NORMAL ACCOMODATION, PERRL - ENT Exam ENT Exam: Mucous Membranes Moist - Respiratory Exam Respiratory Exam: Clear to Ausculation Bilateral, NORMAL BREATHING PATTERN. absent: Prolonged Expiratory Phase, Rales, Rhonchi, Wheezes - Cardiovascular Exam Cardiovascular Exam: REGULAR RHYTHM, +S1, +S2 - GI/Abdominal Exam GI & Abdominal Exam: Soft, Normal Bowel Sounds. absent: Tenderness, Diminished Bowel Sounds, Hypoactive Bowel Sounds - Extremities Exam Extremities Exam: Normal Capillary Refill - Neurological Exam Neurological Exam: Alert, Awake, Oriented x3 - Psychiatric Exam Psychiatric exam: Normal Affect, Normal Mood - Skin Skin Exam: Dry, Intact, Normal Color, Warm Assessment and Plan - Assessment and Plan (Free Text) Assessment: Acute on Chronic systolic heart failure Echo- 06/25/16- Systolic function is mildly impaired, EF- 40-45%. Akinesis and thinning of basal and mid inferior wall and septal wall segments (both anterior and inferior)indicative of prior [place]. LA moderately dilated. RA mildly dilated. AV moderately sclerotic. Mod tricuspid regurg (please see full report) MUGA scan- 06/20/16- EF 32% NEO negative x 1 BNP- 3280 Continue Coreg 6.25mg PO BID Continue Plavix 75mg PO Daily Continue Lasix 20mg IVP BID Continue Losartan 25mg PO Daily Continue Asa 81mg PO Daily Prophylactic Measure Heparin 5000U SC Q12h SCDs Protonix 40mg PO Daily All medical management as per Dr. Beck. Discussed code status in depth with patient and family (daughter, nephew, niece ) at bedside. At this time, patient wishes to be remain full code, she says she will decide later if she to be DNR/DNI.
[2016-07-04] MEDS ORDERED: Pantoprazole 40 mg EC Tab PO SCH (12:30)
--- NOTE | 2016-07-04 13:31 | RAD ---
PROCEDURE: CHEST RADIOGRAPH, 1 VIEW HISTORY: chest pain COMPARISON: 06/23/2016 FINDINGS: LUNGS: Biapical pleural thickening with upper lobe granulomatous changes. Diffuse increased interstitial lung markings throughout both lungs with diffuse confluent bilateral airspace opacities throughout both lungs. Confluent consolidative changes at the right lung base. PLEURA: No pneumothorax or pleural fluid seen. CARDIOVASCULAR: Cardiomegaly. Calcification at the aortic knob. OSSEOUS STRUCTURES: Degenerative changes in the spine and shoulders. VISUALIZED UPPER ABDOMEN: Normal. OTHER FINDINGS: None. IMPRESSION: Biapical pleural thickening with upper lobe granulomatous changes. Diffuse increased interstitial lung markings throughout both lungs with diffuse confluent bilateral airspace opacities throughout both lungs. Confluent consolidative changes at the right lung base.
[2016-07-04] MEDS: Ranolazine 500 mg Extended Release Tablets PO SCH (18:00)
[2016-07-04] MEDS: Albuterol-Ipratrop 3 mg / 0.5 (3 ml) UD IH SCH (20:24)
[2016-07-05] MEDS: Albuterol-Ipratrop 3 mg / 0.5 (3 ml) UD IH SCH ×4 (01:52→20:16)
[2016-07-05 07:31] LABS: BASO # 0.2 K/uL (0.0-0.2); BASO % 2.2 % (0.0-2.0); EOS # 0.2 K/uL (0.0-0.7); EOS % 2.4 % (0.0-4.0); HEMATOCRIT 27.5 % (34.0-47.0); LYMPH # 2.5 K/uL (1.0-4.3); LYMPH % 27.1 % (20.0-40.0); MEAN CELL VOLUME 70.6 fL (81.0-99.0); MEAN CORPUSCULAR HEMOGLOBIN 22.5 pg (27.0-31.0); MEAN CORPUSCULAR HGB CONC 31.9 g/dL (33.0-37.0); MONO # 0.9 K/uL (0.0-0.8); MONO % 9.6 % (0.0-10.0); RED CELL DISTRIBUTION WIDTH 16.9 % (11.5-14.5); WHITE BLOOD COUNT 9.3 K/uL (4.8-10.8)
[2016-07-05 08:38] LABS: CHLORIDE 99 mmol/L (98-107); POTASSIUM 3.1 mmol/L (3.6-5.2); SODIUM 138 mmol/L (132-148)
[2016-07-05 08:40] LABS: ALB/GLOB RATIO 1.2 (1.0-2.1); ALKALINE PHOSPHATASE 78 U/L (38-126); ALT/SGPT 22 U/L (9-52); AST/SGOT 23 U/L (14-36); BILIRUBIN,TOTAL 0.7 mg/dL (0.2-1.3); BLOOD UREA NITROGEN 20 mg/dL (7-17); CARBON DIOXIDE 26 mmol/L (22-30); GFR AFRICAN-AMERICAN > 60; GLUCOSE,RANDOM 91 mg/dL (65-105); TOTAL PROTEIN 6.7 g/dL (6.3-8.3)
[2016-07-05 08:41] LABS: CALCIUM 8.4 mg/dl (8.6-10.4)
[2016-07-05] MEDS ORDERED: Potassium Chloride 20 mEq ER Tab PO ONE ×3 (10:00→17:15)
--- NOTE | 2016-07-05 10:10 | CP.PCM.PN ---
Subjective - Date & Time of Evaluation Date of Evaluation: 07/05/16 Time of Evaluation: 10:07 - Subjective Subjective: Medicine Progress Note Patient seen and examined. Patient states that she feels very anxious and stressed. Patient breathing comfortably on nasal canula. She denies fever, chills, chest pain, coughing, change in bowel movements, and shortness of breath. Objective - Vital Signs/Intake and Output Vital Signs (last 24 hours): Temp Pulse Resp BP Pulse Ox 98.6 F 83 18 118/74 98 07/05/16 07:07 07/05/16 07:07 07/05/16 07:07 07/05/16 07:07 07/05/16 07:07 Intake and Output: 07/05/16 07/05/16 06:59 18:59 Output Total 200 Balance -200 - Medications Medications: Current Medications Acetaminophen (Tylenol 325mg Tab) 650 mg PO Q6 PRN PRN Reason: Headache Last Admin: 07/04/16 18:00 Dose: 650 mg Albuterol/Ipratropium (Duoneb 3 Mg/0.5 Mg (3 Ml) Ud) 3 ml IH RQ6 [facility] Last Admin: 07/05/16 07:33 Dose: 3 ml Aspirin (Aspirin Chewable) 81 mg PO DAILY [facility] Carvedilol (Coreg) 6.25 mg PO BID [facility] Last Admin: 07/04/16 18:00 Dose: Not Given Clopidogrel Bisulfate (Plavix) 75 mg PO DAILY [facility] Dronabinol (Marinol) 2.5 mg PO BID [facility] Last Admin: 07/04/16 18:00 Dose: 2.5 mg Famotidine (Pepcid) 20 mg PO DAILY [facility] Last Admin: 07/04/16 16:30 Dose: 20 mg Furosemide (Lasix) 40 mg IVP BID [facility] Last Admin: 07/04/16 18:10 Dose: Not Given Heparin Sodium (Porcine) (Heparin) 5,000 units SC Q12 [facility] Last Admin: 07/04/16 22:41 Dose: 5,000 units Lorazepam (Ativan) 0.5 mg PO BID PRN PRN Reason: Anxiety Last Admin: 07/04/16 22:41 Dose: 0.5 mg Losartan Potassium (Cozaar) 25 mg PO DAILY [facility] Potassium Chloride (K-Dur 20 Meq Er Tab) 40 meq PO ONCE ONE Stop: 07/05/16 14:01 Ranolazine (Ranexa) 500 mg PO BID [facility] Last Admin: 07/04/16 18:00 Dose: 500 mg Rosuvastatin Calcium (Crestor) 10 mg PO HS [facility] Last Admin: 07/04/16 22:41 Dose: 10 mg - Labs Labs: 07/05/16 07:18 07/05/16 07:18 PT 13.2 SECONDS (9.7-12.2) H 07/04/16 10:11 INR 1.2 07/04/16 10:11 APTT 26 SECONDS (21-34) 07/04/16 10:11 - Constitutional Appears: No Acute Distress, Chronically Ill, Other (anxious ) - Head Exam Head Exam: ATRAUMATIC, NORMOCEPHALIC - Eye Exam Eye Exam: EOMI, Normal appearance Pupil Exam: NORMAL ACCOMODATION - ENT Exam ENT Exam: Mucous Membranes Moist Additional comments: poor dentition - Neck Exam Neck Exam: Normal Inspection - Respiratory Exam Respiratory Exam: Decreased Breath Sounds, Clear to Ausculation Bilateral, NORMAL BREATHING PATTERN. absent: Rhonchi, Wheezes, Respiratory Distress - Cardiovascular Exam Cardiovascular Exam: REGULAR RHYTHM, +S1, +S2 - GI/Abdominal Exam GI & Abdominal Exam: Soft, Normal Bowel Sounds - Extremities Exam Extremities Exam: Normal Inspection. absent: Pedal Edema - Neurological Exam Neurological Exam: Alert, Awake, Oriented x3 - Psychiatric Exam Psychiatric exam: Anxious, Depressed - Skin Skin Exam: Dry, Intact, Normal Color, Warm Assessment and Plan - Assessment and Plan (Free Text) Assessment: Acute on Chronic systolic heart failure Echo- 06/25/16- Systolic function is mildly impaired, EF- 40-45%. Akinesis and thinning of basal and mid inferior wall and septal wall segments (both anterior and inferior)indicative of prior [place]. LA moderately dilated. RA mildly dilated. AV moderately sclerotic. Mod tricuspid regurg (please see full report) Patient was seen by Dr Kelley on previous visit. He recommended conservative treatment due to patient's DNR/DNI status at the time. However, the patient wishes to be full code on this visit and is still unsure about finalizing this decision. Dr Cedeño (PGY2) discussed code status in depth with patient and family (daughter, nephew, niece) at bedside on 07/04/16. At this time, patient wishes to be remain full code, she says she will decide later if she to be DNR/DNI. If patient remains Full code, will consult EP Dr Gustafson for ICD placement. MUGA scan- 06/20/16- EF 32% NEO negative x 1 BNP- 3280 Continue Coreg 6.25mg PO BID Continue Plavix 75mg PO Daily Continue Lasix 20mg IVP BID Continue Losartan 25mg PO Daily Continue Asa 81mg PO Daily Anxiety Anxious this morning Ativan 0.5mg IVP BID prn Prophylactic Measure Heparin 5000U SC Q12h SCDs Protonix 40mg PO Daily All medical management as per Dr. Beck.
--- NOTE | 2016-07-05 10:20 | CARD ---
APPROVED REPORT EKG Measurement Heart [id number] <Conclusion> Sinus rhythm with premature supraventricular complexes and with occasional premature ventricular complexes Left axis deviation Left ventricular hypertrophy with repolarization abnormality Possible Lateral infarct, age undetermined Inferior infarct, age undetermined Abnormal ECG
[2016-07-05] MEDS: Ranolazine 500 mg Extended Release Tablets PO SCH ×2 (12:00→17:32)
[2016-07-05] MEDS: Oxycodone/Acetaminophen 5/325 mg Tab PO PRN (18:26)
[2016-07-06] MEDS: Albuterol-Ipratrop 3 mg / 0.5 (3 ml) UD IH SCH ×4 (00:01→19:44)
[2016-07-06 08:41] LABS: BASO # 0.1 K/uL (0.0-0.2); BASO % 1.3 % (0.0-2.0); EOS # 0.2 K/uL (0.0-0.7); EOS % 1.8 % (0.0-4.0); HEMATOCRIT 29.7 % (34.0-47.0); LYMPH # 1.9 K/uL (1.0-4.3); LYMPH % 16.8 % (20.0-40.0); MEAN CELL VOLUME 70.7 fL (81.0-99.0); MEAN CORPUSCULAR HEMOGLOBIN 22.4 pg (27.0-31.0); MEAN CORPUSCULAR HGB CONC 31.7 g/dL (33.0-37.0); MEAN PLATELET VOLUME 10.1 fL (7.2-11.7); MONO # 0.9 K/uL (0.0-0.8); MONO % 8.1 % (0.0-10.0); RED CELL DISTRIBUTION WIDTH 16.7 % (11.5-14.5); WHITE BLOOD COUNT 11.2 K/uL (4.8-10.8)
[2016-07-06 08:48] LABS: CHLORIDE 98 mmol/L (98-107)
[2016-07-06 08:49] LABS: POTASSIUM 4.9 mmol/L (3.6-5.2); SODIUM 135 mmol/L (132-148)
[2016-07-06 08:51] LABS: GFR AFRICAN-AMERICAN > 60
[2016-07-06 08:52] LABS: ALB/GLOB RATIO 1.2 (1.0-2.1); ALKALINE PHOSPHATASE 85 U/L (38-126); ALT/SGPT 20 U/L (9-52); AST/SGOT 23 U/L (14-36); BILIRUBIN,TOTAL 0.9 mg/dL (0.2-1.3); BLOOD UREA NITROGEN 24 mg/dL (7-17); CALCIUM 8.9 mg/dl (8.6-10.4); CARBON DIOXIDE 26 mmol/L (22-30); GLUCOSE,RANDOM 103 mg/dL (65-105); TOTAL PROTEIN 7.6 g/dL (6.3-8.3)
--- NOTE | 2016-07-06 09:46 | CP.PCM.PN ---
Subjective - Date & Time of Evaluation Date of Evaluation: 07/06/16 Time of Evaluation: 07:15 - Subjective Subjective: Medicine Progress Note Patient seen and examined. Patient states that she feels "terrible." Overnight the patient had anxiety and chest discomfort so NEO was drawn that was negative. She denies chest pain or palpitations at this time. Patient complains of dry cough. 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 Denies fever, chills, nausea, vomiting, diarrhea, chest pain, and shortness of breath. Objective - Vital Signs/Intake and Output Vital Signs (last 24 hours): Temp Pulse Resp BP Pulse Ox 97.8 F 88 20 141/91 H 95 07/06/16 07:00 07/06/16 07:00 07/06/16 07:00 07/06/16 07:00 07/06/16 07:00 Intake and Output: 07/06/16 07/06/16 06:59 18:59 Intake Total 120 Output Total 0 Balance 120 - Medications Medications: Current Medications Acetaminophen (Tylenol 325mg Tab) 650 mg PO Q6 PRN PRN Reason: Headache Last Admin: 07/04/16 18:00 Dose: 650 mg Albuterol/Ipratropium (Duoneb 3 Mg/0.5 Mg (3 Ml) Ud) 3 ml IH RQ6 [facility] Last Admin: 07/06/16 08:12 Dose: 3 ml Aspirin (Aspirin Chewable) 81 mg PO DAILY [facility] Last Admin: 07/05/16 11:59 Dose: 81 mg Carvedilol (Coreg) 6.25 mg PO BID [facility] Last Admin: 07/05/16 17:32 Dose: 6.25 mg Clopidogrel Bisulfate (Plavix) 75 mg PO DAILY [facility] Last Admin: 07/05/16 11:59 Dose: 75 mg Dronabinol (Marinol) 2.5 mg PO BID [facility] Last Admin: 07/05/16 17:32 Dose: 2.5 mg Famotidine (Pepcid) 20 mg PO DAILY [facility] Last Admin: 07/05/16 11:59 Dose: 20 mg Furosemide (Lasix) 40 mg IVP BID [facility] Last Admin: 07/05/16 17:32 Dose: 40 mg Heparin Sodium (Porcine) (Heparin) 5,000 units SC Q12 [facility] Last Admin: 07/05/16 22:30 Dose: 5,000 units Lorazepam (Ativan) 0.5 mg PO BID PRN PRN Reason: Anxiety Last Admin: 07/05/16 23:45 Dose: 0.5 mg Losartan Potassium (Cozaar) 25 mg PO DAILY [facility] Last Admin: 07/05/16 12:01 Dose: Not Given Oxycodone/Acetaminophen (Percocet 5/325 Mg Tab) 1 tab PO Q4H PRN PRN Reason: Pain, severe (8-10) Stop: 07/08/16 18:15 Last Admin: 07/05/16 18:26 Dose: 1 tab Ranolazine (Ranexa) 500 mg PO BID [facility] Last Admin: 07/05/16 17:32 Dose: 500 mg Rosuvastatin Calcium (Crestor) 10 mg PO HS [facility] Last Admin: 07/05/16 22:31 Dose: 10 mg - Labs Labs: 07/06/16 08:26 07/06/16 08:26 PT 13.2 SECONDS (9.7-12.2) H 07/04/16 10:11 INR 1.2 07/04/16 10:11 APTT 26 SECONDS (21-34) 07/04/16 10:11 - Additional Findings Additional findings: - Constitutional Appears: No Acute Distress, Chronically Ill, Other (anxious ) - Head Exam Head Exam: ATRAUMATIC, NORMOCEPHALIC - Eye Exam Eye Exam: EOMI, Normal appearance Pupil Exam: NORMAL ACCOMODATION - ENT Exam ENT Exam: Mucous Membranes Moist Additional comments: poor dentition - Neck Exam Neck Exam: Normal Inspection - Respiratory Exam Respiratory Exam: Decreased Breath Sounds, Clear to Ausculation Bilateral, NORMAL BREATHING PATTERN. absent: Rhonchi, Wheezes, Respiratory Distress - Cardiovascular Exam Cardiovascular Exam: REGULAR RHYTHM, +S1, +S2 - GI/Abdominal Exam GI & Abdominal Exam: Soft, Normal Bowel Sounds - Extremities Exam Extremities Exam: Normal Inspection. absent: Pedal Edema - Neurological Exam Neurological Exam: Alert, Awake, Oriented x3 - Psychiatric Exam Psychiatric exam: Anxious, Depressed - Skin Skin Exam: Dry, Intact, Normal Color, Warm Assessment and Plan - Assessment and Plan (Free Text) Assessment: Acute on Chronic systolic heart failure Echo- 06/25/16- Systolic function is mildly impaired, EF- 40-45%. Akinesis and thinning of basal and mid inferior wall and septal wall segments (both anterior and inferior)indicative of prior [place]. LA moderately dilated. RA mildly dilated. AV moderately sclerotic. Mod tricuspid regurg (please see full report) Patient was seen by Dr Kelley on previous visit. He recommended conservative treatment due to patient's DNR/DNI status at the time. However, the patient wishes to be full code on this visit and is still unsure about finalizing this decision. Dr Cedeño (PGY2) discussed code status in depth with patient and family (daughter, nephew, niece) at bedside on 07/04/16. At this time, patient wishes to be remain full code, she says she will decide later if she to be DNR/DNI. Consulted EP Dr Gustafson consulted- will f/u recommendation for ICD placement MUGA scan- 06/20/16- EF 32% NEO negative x 2 BNP- 3280 Continue Coreg 6.25mg PO BID Continue Plavix 75mg PO Daily Continue Lasix 40mg IVP BID Continue Losartan 25mg PO Daily Continue Asa 81mg PO Daily Anxiety Ativan 0.5mg IVP BID prn Prophylactic Measure Heparin 5000U SC Q12h SCDs Protonix 40mg PO Daily All medical management as per Dr. Beck.
[2016-07-06] MEDS: Oxycodone/Acetaminophen 5/325 mg Tab PO PRN ×2 (10:15→19:26)
[2016-07-06] MEDS: Ranolazine 500 mg Extended Release Tablets PO SCH ×2 (10:16→19:24)
--- NOTE | 2016-07-06 10:18 | CP.PCM.PN ---
<Hansa Jones - Last Filed: 07/06/16 13:53> Subjective - Date & Time of Evaluation Date of Evaluation: 07/06/16 Time of Evaluation: 10:16 - Subjective Subjective: PGY-[address] Gustafson Still mild SOB, no acute complaint per 12 point review. Talk with daughter Juju ([phone]) who wishes the patient to be DNR/DNI. She is the POA, but pt's code status was reversed from last admission because one of pt's daughter wanted pt to be full code. Objective - Vital Signs/Intake and Output Vital Signs (last 24 hours): Temp Pulse Resp BP Pulse Ox 97.8 F 88 20 141/91 H 95 07/06/16 07:00 07/06/16 07:00 07/06/16 07:00 07/06/16 07:00 07/06/16 07:00 Intake and Output: 07/06/16 07/06/16 06:59 18:59 Intake Total 120 Output Total 0 Balance 120 - Medications Medications: Current Medications Acetaminophen (Tylenol 325mg Tab) 650 mg PO Q6 PRN PRN Reason: Headache Last Admin: 07/04/16 18:00 Dose: 650 mg Albuterol/Ipratropium (Duoneb 3 Mg/0.5 Mg (3 Ml) Ud) 3 ml IH RQ6 [facility] Last Admin: 07/06/16 08:12 Dose: 3 ml Aspirin (Aspirin Chewable) 81 mg PO DAILY [facility] Last Admin: 07/05/16 11:59 Dose: 81 mg Carvedilol (Coreg) 6.25 mg PO BID [facility] Last Admin: 07/05/16 17:32 Dose: 6.25 mg Clopidogrel Bisulfate (Plavix) 75 mg PO DAILY [facility] Last Admin: 07/05/16 11:59 Dose: 75 mg Dronabinol (Marinol) 2.5 mg PO BID [facility] Last Admin: 07/05/16 17:32 Dose: 2.5 mg Famotidine (Pepcid) 20 mg PO DAILY [facility] Last Admin: 07/05/16 11:59 Dose: 20 mg Furosemide (Lasix) 40 mg IVP BID [facility] Last Admin: 07/05/16 17:32 Dose: 40 mg Heparin Sodium (Porcine) (Heparin) 5,000 units SC Q12 [facility] Last Admin: 07/05/16 22:30 Dose: 5,000 units Lorazepam (Ativan) 0.5 mg PO BID PRN PRN Reason: Anxiety Last Admin: 07/05/16 23:45 Dose: 0.5 mg Losartan Potassium (Cozaar) 25 mg PO DAILY [facility] Last Admin: 07/05/16 12:01 Dose: Not Given Oxycodone/Acetaminophen (Percocet 5/325 Mg Tab) 1 tab PO Q4H PRN PRN Reason: Pain, severe (8-10) Stop: 07/08/16 18:15 Last Admin: 07/05/16 18:26 Dose: 1 tab Ranolazine (Ranexa) 500 mg PO BID [facility] Last Admin: 07/05/16 17:32 Dose: 500 mg Rosuvastatin Calcium (Crestor) 10 mg PO HS [facility] Last Admin: 07/05/16 22:31 Dose: 10 mg - Labs Labs: 07/06/16 08:26 07/06/16 08:26 PT 13.2 SECONDS (9.7-12.2) H 07/04/16 10:11 INR 1.2 07/04/16 10:11 APTT 26 SECONDS (21-34) 07/04/16 10:11 - Constitutional Appears: Non-toxic, No Acute Distress - Head Exam Head Exam: ATRAUMATIC, NORMOCEPHALIC - Eye Exam Eye Exam: EOMI, Normal appearance, PERRL Pupil Exam: NORMAL ACCOMODATION - ENT Exam ENT Exam: Mucous Membranes Moist - Respiratory Exam Respiratory Exam: Decreased Breath Sounds, Rales, NORMAL BREATHING PATTERN. absent: Accessory Muscle Use Additional comments: scoliosis - Cardiovascular Exam Cardiovascular Exam: REGULAR RHYTHM, +S1, +S2. absent: Murmur - GI/Abdominal Exam GI & Abdominal Exam: Soft, Normal Bowel Sounds. absent: Tenderness - Extremities Exam Extremities Exam: Pedal Edema - Psychiatric Exam Psychiatric exam: Normal Affect, Normal Mood - Skin Skin Exam: Dry, Warm Assessment and Plan - Assessment and Plan (Free Text) Plan: 81 F Pt (Prior DNR/DNI, now FULL CODE) from assisted with PMHx of CHF, COPD , CAD (MIs 2015, 2017) s/p GARRY in RCA, ischemic cardiomyopathy on home O2, HTN s /o came to hospital on 07/05 for SOB. Cardiology was consulted for low EF and evaluation of ICD placment. Pt was recently discharged on 07/04 for the SOB. started on IV lasix, bronchodilators. 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 Cardiology was consulted for ICD placement Sinus tachycardia 106, wide QRS - resolved - supraventricular, QTc 486 - runs of vtach 8 at 10:34am nonsustained, V5 lead only. Hemodynamically stable Cardiomyopathy, likely ischemic, home O2 - ICD decision pending as primary prophylaxis of sudden cardiac - Likely class IIa to I with echo showing structural heart disease, LVEF 40%, CHF class III CHF, systolic, acute on chronic, class III - Lasix 40 IV BID, Duoneb on bipap, Ranexa 500 PO BID - CXR today shows mild improvement of vascular congestion - EKG 07/05/2016: Sinus tachycardia with premature supravetricular complexes, 106 bpm, left axis deviation, normal MI and QRS interval, prolonged QTC 486ms, LVH with QRS widening and replolarization abnormality, - Echo 06/25/2016 EF 40-45%, akinesis and thinning of the basal and mid-inferior wall and septal wall segments (indiactvie of prior MT), severe MR, Transmitral doppler flow pattern is Grade II pseudonormal filling dynamics, poor MV leaflet coaptiation due to papillary muscle discplacemetn secondary to MT, aortic valuve is moderatly sclerotic, PAP 40-50, RQAP 5-10. - Cardiac Cath 12/29/2015: PCI of mid RC with 2.5mm x 18 mm Xience GARRY, severe 2- vessel disease (99% occlusion of RCA TIMIT II flow, 20% stenosis distal left main, 80-50% stenosis proximal LAD, 90% stenosis mid LAD, 95% apical stenosis LAd, EF 30-35%) - MUGA 06/20: Abnodmral KIM study, EF32% - Troponins Negative x2 (0.0230, 0.0300) - CK MB negative x1 0.65 - BNP elevated: 3280 HTN - 130s-140s today Hx CAD - ASA and plavix daily - Carvedilol 6.25 BID, Losartan 25 daily, Crestor 10 HS Prophylaxis - Heparin 5000 BID Will S/D/R/w Dr. Gustafson <Iraida Gustafson A - Last Filed: 08/08/16 07:26> Objective - Vital Signs/Intake and Output Vital Signs (last 24 hours): Temp Pulse Resp BP Pulse Ox 98 F 63 19 105/60 97 07/09/16 08:18 07/09/16 08:18 07/09/16 08:18 07/09/16 10:09 07/09/16 08:18 - Labs Labs: 07/09/16 07:13 07/09/16 07:13 PT 13.2 SECONDS (9.7-12.2) H 07/04/16 10:11 INR 1.2 07/04/16 10:11 APTT 26 SECONDS (21-34) 07/04/16 10:11 Attending/Attestation - Attestation I have personally seen and examined this patient.: Yes I have fully participated in the care of the patient.: Yes I have reviewed all pertinent clinical information, including history, physical exam and plan: Yes Notes (Text): 08/08/16 07:25 Pt's family deciding code status continue chf meds
--- NOTE | 2016-07-06 11:13 | RAD ---
HISTORY: SOB COMPARISON: Comparison is made to 07/04/2016 FINDINGS: LUNGS: Interval mild improvement in the lungs since the previous exam. PLEURA: No significant pleural effusion identified, no pneumothorax apparent. CARDIOVASCULAR: The cardiac silhouette is mildly enlarged. OSSEOUS STRUCTURES: No significant abnormalities. VISUALIZED UPPER ABDOMEN: Normal. OTHER FINDINGS: None. IMPRESSION: Interval mild improvement in the lungs since the previous study.
--- NOTE | 2016-07-06 15:55 | CP.PCM.CON ---
<Hansa Jones - Last Filed: 07/06/16 16:02> History of Present Illness - History of Present Illness History of Present Illness: PGY-[address] Gustafson CC: Evaluation for ICD placement HPI: This is an 81 year old female with PMH of CHF, CAD, COPD, CO x 2 s/p drug eluting stent in RCA, HTN presenting for cardiac evaluation of low EF and evaluation of ICD placement. She was admitted on 07/04/2016 for SOB. Per nursing staff, last night at 23:35 she became short of breath with distress and a rapid response was called; she was treated with Ativan and placed on BiPap. This morning, she continues to be on BiPap and still reports mild difficulty in breathing. She also admits to mild cough, SOB, and lower right rib pain on palpation. She denies dizziness, chest pain, palpitations, leg cramping, leg swelling. She was recently discharged on 06/30/16 with [facility]. During that hospital stay, she had cardiac workup including EKG, Echo and MUGA scan. EKG from 06/19 showed sinus tachy with PACs, left axis deviation, normal GA and QRS intervals, proloned QTc and LVH. MUGA scan on 06/20 showed EF% was 32%. PMH: Systolic CHF, HTN, CO x2, CAD, COPD PSH: GARRY in RCA (12/2015), cholescystectomy (2014), hysterectomy, vocal cord surgery Allergies: Moxifloxacin FH: denies PMD: Dr. Beck Insurance Biller: Dr. Burroughs Past Patient History - Infectious Disease Hx of Infectious Diseases: None - Tetanus Immunizations Tetanus Immunization: Unknown - Past Medical History & Family History Past Medical History?: Yes - Past Social History Smoking Status: Never Smoked - CARDIAC Hx Congestive Heart Failure: Yes Hx Hypertension: Yes - PULMONARY Hx Chronic Obstructive Pulmonary Disease (COPD): Yes - NEUROLOGICAL Hx Dementia: Yes - HEENT Hx HEENT Problems: No - RENAL Hx Chronic Kidney Disease: No Hx Kidney Stones: No - ENDOCRINE/METABOLIC Hx Hypothyroidism: No - HEMATOLOGICAL/ONCOLOGICAL Hx Anemia: No Hx Human Immunodeficiency Virus (HIV): No Hx Sickle Cell Disease: No - INTEGUMENTARY Hx Dermatological Problems: No - MUSCULOSKELETAL/RHEUMATOLOGICAL Hx Arthritis: Yes Hx Rheumatoid Arthritis: Yes - GASTROINTESTINAL Hx Gall Bladder Disease: Yes - GENITOURINARY/GYNECOLOGICAL Hx Sexually Transmitted Disorders: No - PSYCHIATRIC Hx Anxiety: Yes Hx Substance Use: No - SURGICAL HISTORY Hx Cholecystectomy: Yes Hx Coronary Stent: Yes (proximal RCA stent, 2 weeks ago) - ANESTHESIA Hx Anesthesia: Yes Hx Anesthesia Reactions: No Hx Malignant Hyperthermia: No Meds Allergies/Adverse Reactions: Allergies Allergy/AdvReac Type Severity Reaction Status Date / Time moxifloxacin HCl Allergy Severe ANAPHYLAXIS Verified 08/02/16 04:16 [From Avelox] - Medications Medications: Current Medications Acetaminophen (Tylenol 325mg Tab) 650 mg PO Q6 PRN PRN Reason: Headache Last Admin: 07/04/16 18:00 Dose: 650 mg Albuterol/Ipratropium (Duoneb 3 Mg/0.5 Mg (3 Ml) Ud) 3 ml IH RQ6 [facility] Last Admin: 07/06/16 08:12 Dose: 3 ml Aspirin (Aspirin Chewable) 81 mg PO DAILY [facility] Last Admin: 07/06/16 10:15 Dose: 81 mg Carvedilol (Coreg) 6.25 mg PO BID [facility] Last Admin: 07/06/16 10:16 Dose: 6.25 mg Clopidogrel Bisulfate (Plavix) 75 mg PO DAILY [facility] Last Admin: 07/06/16 10:16 Dose: 75 mg Dronabinol (Marinol) 2.5 mg PO BID [facility] Last Admin: 07/06/16 10:17 Dose: 2.5 mg Famotidine (Pepcid) 20 mg PO DAILY [facility] Last Admin: 07/06/16 10:16 Dose: 20 mg Furosemide (Lasix) 40 mg IVP BID [facility] Last Admin: 07/06/16 10:17 Dose: 40 mg Heparin Sodium (Porcine) (Heparin) 5,000 units SC Q12 [facility] Last Admin: 07/06/16 10:17 Dose: 5,000 units Lorazepam (Ativan) 0.5 mg PO BID PRN PRN Reason: Anxiety Last Admin: 07/06/16 11:19 Dose: 0.5 mg Losartan Potassium (Cozaar) 25 mg PO DAILY [facility] Last Admin: 07/06/16 10:16 Dose: 25 mg Oxycodone/Acetaminophen (Percocet 5/325 Mg Tab) 1 tab PO Q4H PRN PRN Reason: Pain, severe (8-10) Stop: 07/08/16 18:15 Last Admin: 07/06/16 10:15 Dose: 1 tab Ranolazine (Ranexa) 500 mg PO BID [facility] Last Admin: 07/06/16 10:16 Dose: 500 mg Rosuvastatin Calcium (Crestor) 10 mg PO HS [facility] Last Admin: 07/05/16 22:31 Dose: 10 mg Physical Exam - Head Exam Head Exam: ATRAUMATIC, NORMOCEPHALIC - Eye Exam Eye Exam: EOMI, Normal appearance - ENT Exam ENT Exam: Mucous Membranes Moist - Respiratory Exam Respiratory Exam: Decreased Breath Sounds (R lung bases, scoliosis), Clear to Auscultation Bilateral, NORMAL BREATHING PATTERN. absent: Rales, Rhonchi, Wheezes - Cardiovascular Exam Cardiovascular Exam: REGULAR RHYTHM, +S1, +S2 - GI/Abdominal Exam GI & Abdominal Exam: Normal Bowel Sounds, Soft. absent: Tenderness - Neurological Exam Neurological exam: Alert, Oriented x3 Additional comments: When asked questions regarding recent hospital stay, whether use oxygen at home , what happen during rapid response last night, pt did not answer appropriately. She mentioned about the heart attack that happened in early in Feb. - Psychiatric Exam Psychiatric exam: Normal Affect, Normal Mood Results - Vital Signs Recent Vital Signs: Last Vital Signs Temp 97.8 F 07/06/16 07:00 Pulse 88 07/06/16 07:00 Resp 20 07/06/16 07:00 BP 141/78 07/06/16 10:17 Pulse Ox 95 07/06/16 07:00 - Labs Result Diagrams: 07/06/16 08:26 07/06/16 08:26 Labs: Laboratory Results - last 24 hr 07/05/16 07/06/16 07/06/16 23:51 06:50 08:26 WBC 11.2 H RBC 4.20 Hgb 9.4 L Hct 29.7 L MCV 70.7 L MCH 22.4 L MCHC 31.7 L RDW 16.7 H Plt Count 354 MPV 10.1 Neut % (Auto) 72.0 Lymph % (Auto) 16.8 L Story % (Auto) 8.1 Eos % (Auto) 1.8 Baso % (Auto) 1.3 Neut # 8.0 H Lymph # 1.9 Story # 0.9 H Eos # 0.2 Baso # 0.1 Sodium Potassium Chloride Carbon Dioxide Anion Gap BUN Creatinine Est GFR ( Amer) Est GFR (Non-Af Amer) POC Glucose (mg/dL) 82 Random Glucose Calcium Total Bilirubin AST ALT Alkaline Phosphatase Total Creatine Kinase 45 CK-MB (Mass) 0.65 Troponin I, Quant 0.0300 Total Protein Albumin Globulin Albumin/Globulin Ratio 07/06/16 07/06/16 08:26 10:55 WBC RBC Hgb Hct MCV MCH MCHC RDW Plt Count MPV Neut % (Auto) Lymph % (Auto) Story % (Auto) Eos % (Auto) Baso % (Auto) Neut # Lymph # Story # Eos # Baso # Sodium 135 Potassium 4.9 Chloride 98 Carbon Dioxide 26 Anion Gap 16 BUN 24 H Creatinine 0.9 Est GFR ( Amer) > 60 Est GFR (Non-Af Amer) 60 POC Glucose (mg/dL) Random Glucose 103 Calcium 8.9 Total Bilirubin 0.9 AST 23 ALT 20 Alkaline Phosphatase 85 Total Creatine Kinase 34 CK-MB (Mass) 0.70 Troponin I, Quant 0.0250 Total Protein 7.6 Albumin 4.1 Globulin 3.5 Albumin/Globulin Ratio 1.2 Assessment & Plan - Assessment and Plan (Free Text) Plan: 81 F Pt (Prior DNR/DNI, now FULL CODE) from home with PMHx of CHF, COPD, CAD ( MIs 2015, 2017) s/p GARRY in RCA, ischemic cardiomyopathy on home O2, HTN s/o came to hospital on 07/05 for SOB. Cardiology was consulted evaluation of ICD placment. Pt was recently discharged on 07/04 for the SOB. started on IV lasix, bronchodilators. WELDER TACK, Pt SOB with diaphoresis, HR 116, BP 170s/111, POx 93%. Pt is not a candidate for ICD. 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 Primary team notified. This cardiology team signed off. Sinus tachycardia 106, wide QRS - resolved - supraventricular, QTc 486 - rapid ventricular with wide complex 10:34am nonsustained, V5 lead only. Hemodynamically stable Cardiomyopathy, likely ischemic, home O2 - Pt is not a candidate for ICD CHF, systolic, acute on chronic, class III - Lasix 40 IV BID, Duoneb on bipap, Ranexa 500 PO BID - CXR today shows mild improvement of vascular congestion - EKG 07/05/2016: Sinus tachycardia with premature supravetricular complexes, 106 bpm, left axis deviation, normal GA and QRS interval, prolonged QTC 486ms, LVH with QRS widening and replolarization abnormality, - Echo 06/25/2016 EF 40-45%, akinesis and thinning of the basal and mid-inferior wall and septal wall segments (indiactvie of prior CO), severe MR, Transmitral doppler flow pattern is Grade II pseudonormal filling dynamics, poor MV leaflet coaptiation due to papillary muscle discplacemetn secondary to CO, aortic valuve is moderatly sclerotic, PAP 40-50, RQAP 5-10. - Cardiac Cath 12/29/2015: PCI of mid RC with 2.5mm x 18 mm Xience GARRY, severe 2- vessel disease (99% occlusion of RCA TIMIT II flow, 20% stenosis distal left main, 80-50% stenosis proximal LAD, 90% stenosis mid LAD, 95% apical stenosis LAd, EF 30-35%) - MUGA 06/20: Abnodmral KIM study, EF32% - Troponins Negative x2 (0.0230, 0.0300) - CK MB negative x1 0.65 - BNP elevated: 3280 HTN - 130s-140s today Hx CAD - ASA and plavix daily - Carvedilol 6.25 BID, Losartan 25 daily, Crestor 10 HS Prophylaxis - Heparin 5000 BID Will S/D/R/w Dr. Gustafson - Date & Time Date: 07/06/16 Time: 16:01 <Iraida Gustafson - Last Filed: 08/08/16 07:27> Results - Vital Signs Recent Vital Signs: Last Vital Signs Temp 98 F 07/09/16 08:18 Pulse 63 07/09/16 08:18 Resp 19 07/09/16 08:18 BP 105/60 07/09/16 10:09 Pulse Ox 97 07/09/16 08:18 - Labs Result Diagrams: 07/09/16 07:13 07/09/16 07:13 Attending/Attestation - Attestation I have personally seen and examined this patient.: Yes I have fully participated in the care of the patient.: Yes I have reviewed all pertinent clinical information: Yes Notes (Text): 08/08/16 07:26 Pt is not icd candidate. continue chf meds
[2016-07-07] MEDS: Albuterol-Ipratrop 3 mg / 0.5 (3 ml) UD IH SCH ×4 (01:43→19:54)
[2016-07-07 07:21] LABS: BASO # 0.2 K/uL (0.0-0.2); BASO % 1.8 % (0.0-2.0); EOS # 0.2 K/uL (0.0-0.7); EOS % 2.9 % (0.0-4.0); HEMATOCRIT 27.2 % (34.0-47.0); LYMPH # 2.3 K/uL (1.0-4.3); LYMPH % 26.6 % (20.0-40.0); MEAN CORPUSCULAR HEMOGLOBIN 22.5 pg (27.0-31.0); MEAN CORPUSCULAR HGB CONC 32.2 g/dL (33.0-37.0); MEAN PLATELET VOLUME 10.3 fL (7.2-11.7); MONO # 0.9 K/uL (0.0-0.8); MONO % 10.8 % (0.0-10.0); NRBC % 0.1 % (0.0-2.0); RED CELL DISTRIBUTION WIDTH 16.7 % (11.5-14.5); WHITE BLOOD COUNT 8.5 K/uL (4.8-10.8)
[2016-07-07 07:45] LABS: CHLORIDE 94 mmol/L (98-107); POTASSIUM 3.7 mmol/L (3.6-5.2); SODIUM 133 mmol/L (132-148)
--- NOTE | 2016-07-07 07:45 | CARD ---
APPROVED REPORT EKG Measurement Heart [id number] <Conclusion> Sinus tachycardia with premature supraventricular complexes Possible Left atrial enlargement Left axis deviation Left ventricular hypertrophy with QRS widening and repolarization abnormality Inferior infarct, age undetermined Anterior infarct, age undetermined Abnormal ECG
[2016-07-07 07:47] LABS: AST/SGOT 20 U/L (14-36); BILIRUBIN,TOTAL 0.9 mg/dL (0.2-1.3); CARBON DIOXIDE 26 mmol/L (22-30); GFR AFRICAN-AMERICAN > 60
[2016-07-07 07:48] LABS: ALB/GLOB RATIO 1.2 (1.0-2.1); ALKALINE PHOSPHATASE 80 U/L (38-126); ALT/SGPT 19 U/L (9-52); BLOOD UREA NITROGEN 25 mg/dL (7-17); CALCIUM 8.8 mg/dl (8.6-10.4); GLUCOSE,RANDOM 89 mg/dL (65-105); TOTAL PROTEIN 7.2 g/dL (6.3-8.3)
[2016-07-07] MEDS: Ranolazine 500 mg Extended Release Tablets PO SCH ×2 (09:52→17:36)
--- NOTE | 2016-07-07 09:59 | CP.PCM.PN ---
Subjective - Date & Time of Evaluation Date of Evaluation: 07/07/16 Time of Evaluation: 07:15 - Subjective Subjective: Medicine Note- Dr. Beck's service Patient was seen and examined at bedside. Patient reports that she does not feel well today. She says she feels shaky, she is not breathing well and feels anxious. Patient re-iterated to me that she does not want an ICD at this time. No events overnight, per nursing. Objective - Vital Signs/Intake and Output Vital Signs (last 24 hours): Temp Pulse Resp BP Pulse Ox 98.4 F 75 20 98/57 L 94 L 07/07/16 00:00 07/07/16 00:00 07/07/16 00:00 07/07/16 09:50 07/07/16 00:00 Intake and Output: 07/07/16 07/07/16 06:59 18:59 Intake Total 500 Balance 500 - Medications Medications: Current Medications Acetaminophen (Tylenol 325mg Tab) 650 mg PO Q6 PRN PRN Reason: Headache Last Admin: 07/04/16 18:00 Dose: 650 mg Albuterol/Ipratropium (Duoneb 3 Mg/0.5 Mg (3 Ml) Ud) 3 ml IH RQ6 [facility] Last Admin: 07/07/16 08:11 Dose: 3 ml Aspirin (Aspirin Chewable) 81 mg PO DAILY [facility] Last Admin: 07/07/16 09:52 Dose: 81 mg Carvedilol (Coreg) 6.25 mg PO BID [facility] Last Admin: 07/07/16 09:51 Dose: Not Given Clopidogrel Bisulfate (Plavix) 75 mg PO DAILY [facility] Last Admin: 07/07/16 09:52 Dose: 75 mg Dronabinol (Marinol) 2.5 mg PO BID [facility] Last Admin: 07/07/16 09:50 Dose: 2.5 mg Famotidine (Pepcid) 20 mg PO DAILY [facility] Last Admin: 07/07/16 09:52 Dose: 20 mg Furosemide (Lasix) 40 mg IVP BID [facility] Last Admin: 07/07/16 09:50 Dose: Not Given Heparin Sodium (Porcine) (Heparin) 5,000 units SC Q12 [facility] Last Admin: 07/07/16 09:50 Dose: 5,000 units Lorazepam (Ativan) 0.5 mg PO BID PRN PRN Reason: Anxiety Last Admin: 07/06/16 21:53 Dose: 0.5 mg Losartan Potassium (Cozaar) 25 mg PO DAILY [facility] Last Admin: 07/07/16 09:51 Dose: 25 mg Oxycodone/Acetaminophen (Percocet 5/325 Mg Tab) 1 tab PO Q4H PRN PRN Reason: Pain, severe (8-10) Stop: 07/08/16 18:15 Last Admin: 07/06/16 19:26 Dose: 1 tab Ranolazine (Ranexa) 500 mg PO BID [facility] Last Admin: 07/07/16 09:52 Dose: 500 mg Rosuvastatin Calcium (Crestor) 10 mg PO HS [facility] Last Admin: 07/06/16 21:53 Dose: 10 mg - Labs Labs: 07/07/16 07:00 07/07/16 07:00 PT 13.2 SECONDS (9.7-12.2) H 07/04/16 10:11 INR 1.2 07/04/16 10:11 APTT 26 SECONDS (21-34) 07/04/16 10:11 - Constitutional Appears: Non-toxic, No Acute Distress, Cachectic - Head Exam Head Exam: ATRAUMATIC, NORMAL INSPECTION, NORMOCEPHALIC - Eye Exam Pupil Exam: NORMAL ACCOMODATION, PERRL - ENT Exam ENT Exam: Mucous Membranes Moist - Neck Exam Neck Exam: Normal Inspection - Respiratory Exam Respiratory Exam: Clear to Ausculation Bilateral, NORMAL BREATHING PATTERN. absent: Prolonged Expiratory Phase, Rales, Rhonchi, Wheezes - Cardiovascular Exam Cardiovascular Exam: REGULAR RHYTHM, +S1, +S2 - GI/Abdominal Exam GI & Abdominal Exam: Soft, Normal Bowel Sounds. absent: Tenderness, Diminished Bowel Sounds, Hernia, Hypoactive Bowel Sounds - Extremities Exam Extremities Exam: Normal Capillary Refill, Normal Inspection - Neurological Exam Neurological Exam: Alert, Awake, Oriented x3 - Psychiatric Exam Psychiatric exam: Normal Affect, Normal Mood - Skin Skin Exam: Dry, Intact, Normal Color, Warm Assessment and Plan - Assessment and Plan (Free Text) Assessment: Acute on Chronic systolic heart failure Echo- 06/25/16- Systolic function is mildly impaired, EF- 40-45%. Akinesis and thinning of basal and mid inferior wall and septal wall segments (both anterior and inferior)indicative of prior ND. LA moderately dilated. RA mildly dilated. AV moderately sclerotic. Mod tricuspid regurg (please see full report) Patient was seen by Dr Kelley on previous visit. He recommended conservative treatment due to patient's DNR/DNI status at the time. However, the patient wishes to be full code on this visit and is still unsure about finalizing this decision. Dr Cedeño (PGY2) discussed code status in depth with patient and family (daughter, nephew, niece) at bedside on 07/04/16. At this time, patient wishes to be remain full code, she says she will decide later if she to be DNR/DNI. Consulted EP Dr Gustafson consulted- Per Dr. Gustafson, patient is not a candidate for ICD at this time. Patient has indicated that she does not want an ICD. Risks of her low EF and not receiving an ICD was explained in detail to her , she still refuses. MUGA scan- 06/20/16- EF 32% NEO negative x 2 BNP- 3280 Continue Coreg 6.25mg PO BID Continue Plavix 75mg PO Daily Continue Lasix 40mg IVP BID Continue Losartan 25mg PO Daily Continue Asa 81mg PO Daily Anxiety Ativan 0.5mg IVP BID prn Prophylactic Measure Heparin 5000U SC Q12h [facility] Protonix 40mg PO Daily All medical management as per Dr. Beck. Discharge planning discussed with Dr. Beck, patient and patient's daughter ( Juju)- patient will have arrangements made to go to a senior care- daughter instructed to speak with social work.
--- NOTE | 2016-07-07 10:58 | CP.PCM.PN ---
<Hansa Jones - Last Filed: 07/07/16 10:53> Subjective - Date & Time of Evaluation Date of Evaluation: 07/07/16 Time of Evaluation: 10:53 - Subjective Subjective: PGY-[address] Gustafson Pt seen and examined. Pt with daughter. Daughter expressed wish to have the pt continue cardiology care with our team. Pt herself does not want ICD placement. Objective - Vital Signs/Intake and Output Vital Signs (last 24 hours): Temp Pulse Resp BP Pulse Ox 98.4 F 75 20 98/57 L 94 L 07/07/16 00:00 07/07/16 00:00 07/07/16 00:00 07/07/16 09:50 07/07/16 00:00 Intake and Output: 07/07/16 07/07/16 06:59 18:59 Intake Total 500 Balance 500 - Medications Medications: Current Medications Acetaminophen (Tylenol 325mg Tab) 650 mg PO Q6 PRN PRN Reason: Headache Last Admin: 07/04/16 18:00 Dose: 650 mg Albuterol/Ipratropium (Duoneb 3 Mg/0.5 Mg (3 Ml) Ud) 3 ml IH RQ6 [facility] Last Admin: 07/07/16 08:11 Dose: 3 ml Aspirin (Aspirin Chewable) 81 mg PO DAILY [facility] Last Admin: 07/07/16 09:52 Dose: 81 mg Carvedilol (Coreg) 6.25 mg PO BID [facility] Last Admin: 07/07/16 09:51 Dose: Not Given Clopidogrel Bisulfate (Plavix) 75 mg PO DAILY [facility] Last Admin: 07/07/16 09:52 Dose: 75 mg Dronabinol (Marinol) 2.5 mg PO BID [facility] Last Admin: 07/07/16 09:50 Dose: 2.5 mg Famotidine (Pepcid) 20 mg PO DAILY [facility] Last Admin: 07/07/16 09:52 Dose: 20 mg Furosemide (Lasix) 40 mg IVP BID [facility] Last Admin: 07/07/16 09:50 Dose: Not Given Heparin Sodium (Porcine) (Heparin) 5,000 units SC Q12 [facility] Last Admin: 07/07/16 09:50 Dose: 5,000 units Lorazepam (Ativan) 0.5 mg PO BID PRN PRN Reason: Anxiety Last Admin: 07/06/16 21:53 Dose: 0.5 mg Losartan Potassium (Cozaar) 25 mg PO DAILY [facility] Last Admin: 07/07/16 09:51 Dose: 25 mg Oxycodone/Acetaminophen (Percocet 5/325 Mg Tab) 1 tab PO Q4H PRN PRN Reason: Pain, severe (8-10) Stop: 07/08/16 18:15 Last Admin: 07/06/16 19:26 Dose: 1 tab Ranolazine (Ranexa) 500 mg PO BID [facility] Last Admin: 07/07/16 09:52 Dose: 500 mg Rosuvastatin Calcium (Crestor) 10 mg PO HS [facility] Last Admin: 07/06/16 21:53 Dose: 10 mg - Labs Labs: 07/07/16 07:00 07/07/16 07:00 PT 13.2 SECONDS (9.7-12.2) H 07/04/16 10:11 INR 1.2 07/04/16 10:11 APTT 26 SECONDS (21-34) 07/04/16 10:11 - Constitutional Appears: No Acute Distress - Head Exam Head Exam: ATRAUMATIC, NORMOCEPHALIC - Eye Exam Eye Exam: EOMI, Normal appearance - ENT Exam ENT Exam: Mucous Membranes Moist - Respiratory Exam Respiratory Exam: Decreased Breath Sounds, Clear to Ausculation Bilateral, NORMAL BREATHING PATTERN. absent: Rales, Rhonchi, Wheezes Additional comments: scoliosis - Cardiovascular Exam Cardiovascular Exam: REGULAR RHYTHM, +S1, +S2. absent: Murmur - GI/Abdominal Exam GI & Abdominal Exam: Soft, Normal Bowel Sounds. absent: Tenderness - Extremities Exam Extremities Exam: Normal Capillary Refill, Normal Inspection. absent: Pedal Edema - Neurological Exam Neurological Exam: Alert, Awake - Psychiatric Exam Psychiatric exam: Normal Affect, Normal Mood - Skin Skin Exam: Dry, Warm Assessment and Plan - Assessment and Plan (Free Text) Plan: 81 F Pt (Prior DNR/DNI, now FULL CODE) from home with PMHx of CHF, COPD, CAD ( MIs 2015, 2017) s/p GARRY in RCA, ischemic cardiomyopathy on home O2, HTN s/o came to hospital on 07/05 for SOB. Cardiology was consulted evaluation of ICD placment. Pt was recently discharged on 07/04 for the SOB. started on IV lasix, bronchodilators. [employer], Pt SOB with diaphoresis, HR 116, BP 170s/111, POx 93%. Pt is not a candidate for ICD. POA would like to switch back to pt's own professional services specialist, Dr. Burroughs. Primary team notified. This cardiology team signed off. Cardiomyopathy, likely ischemic, home O2 - Pt is not a candidate for ICD Hx CAD, 2 MIs 2015, 2016 GARRY in RCA - ASA and plavix daily - Carvedilol 6.25 BID, Losartan 25 daily, Crestor 10 HS CHF, systolic, acute on chronic, class III - Lasix 40 IV BID, Duoneb on bipap, Ranexa 500 PO BID HTN - controlled Sinus tachycardia 106, wide QRS - resolved - supraventricular, QTc 486 - rapid ventricular with wide complex 10:34am nonsustained, V5 lead only. Hemodynamically stable Prophylaxis - Heparin 5000 BID Cardiology Imaging: - CXR shows mild improvement of vascular congestion - EKG 07/05/2016: Sinus tachycardia with premature supravetricular complexes, 106 bpm, left axis deviation, normal [place] and QRS interval, prolonged QTC 486ms, LVH with QRS widening and replolarization abnormality, - Echo 06/25/2016 EF 40-45%, akinesis and thinning of the basal and mid-inferior wall and septal wall segments (indiactvie of prior [place]), severe MR, Transmitral doppler flow pattern is Grade II pseudonormal filling dynamics, poor MV leaflet coaptiation due to papillary muscle discplacemetn secondary to [place], aortic valuve is moderatly sclerotic, PAP 40-50, RQAP 5-10. - Cardiac Cath 12/29/2015: PCI of mid RC with 2.5mm x 18 mm Xience GARRY, severe 2- vessel disease (99% occlusion of RCA TIMIT II flow, 20% stenosis distal left main, 80-50% stenosis proximal LAD, 90% stenosis mid LAD, 95% apical stenosis LAd, EF 30-35%) - MUGA 06/20: Abnodmral KIM study, EF32% - Troponins Negative x2 (0.0230, 0.0300) - CK MB negative x1 0.65 - BNP elevated: 3280 Will S/D/R/w Dr. Gustafson <Iraida Gustafson - Last Filed: 08/08/16 07:28> Objective - Vital Signs/Intake and Output Vital Signs (last 24 hours): Temp Pulse Resp BP Pulse Ox 98 F 63 19 105/60 97 07/09/16 08:18 07/09/16 08:18 07/09/16 08:18 07/09/16 10:09 07/09/16 08:18 - Labs Labs: 07/09/16 07:13 07/09/16 07:13 PT 13.2 SECONDS (9.7-12.2) H 07/04/16 10:11 INR 1.2 07/04/16 10:11 APTT 26 SECONDS (21-34) 07/04/16 10:11 Attending/Attestation - Attestation I have personally seen and examined this patient.: Yes I have fully participated in the care of the patient.: Yes I have reviewed all pertinent clinical information, including history, physical exam and plan: Yes Notes (Text): 08/08/16 07:27 d/w daughter in agreement not ICU candidate will continue cardiac care
[2016-07-08] MEDS: Albuterol-Ipratrop 3 mg / 0.5 (3 ml) UD IH SCH ×4 (01:24→18:56)
[2016-07-08 07:06] LABS: BASO # 0.1 K/uL (0.0-0.2); BASO % 1.5 % (0.0-2.0); EOS # 0.3 K/uL (0.0-0.7); EOS % 4.2 % (0.0-4.0); HEMATOCRIT 27.3 % (34.0-47.0); LYMPH # 2.2 K/uL (1.0-4.3); LYMPH % 28.9 % (20.0-40.0); MEAN CELL VOLUME 70.3 fL (81.0-99.0); MEAN CORPUSCULAR HEMOGLOBIN 22.9 pg (27.0-31.0); MEAN CORPUSCULAR HGB CONC 32.6 g/dL (33.0-37.0); MEAN PLATELET VOLUME 9.9 fL (7.2-11.7); MONO # 0.8 K/uL (0.0-0.8); NRBC % 0.2 % (0.0-2.0); RED CELL DISTRIBUTION WIDTH 16.8 % (11.5-14.5); WHITE BLOOD COUNT 7.5 K/uL (4.8-10.8)
[2016-07-08 07:51] LABS: CHLORIDE 95 mmol/L (98-107)
[2016-07-08 07:52] LABS: POTASSIUM 3.6 mmol/L (3.6-5.2); SODIUM 134 mmol/L (132-148)
[2016-07-08 07:54] LABS: ALB/GLOB RATIO 1.2 (1.0-2.1); ALKALINE PHOSPHATASE 74 U/L (38-126); AST/SGOT 21 U/L (14-36); BILIRUBIN,TOTAL 0.9 mg/dL (0.2-1.3); CARBON DIOXIDE 25 mmol/L (22-30); GFR AFRICAN-AMERICAN > 60; TOTAL PROTEIN 7.3 g/dL (6.3-8.3)
[2016-07-08 07:55] LABS: ALT/SGPT 15 U/L (9-52); BLOOD UREA NITROGEN 24 mg/dL (7-17); CALCIUM 8.7 mg/dl (8.6-10.4); GLUCOSE,RANDOM 96 mg/dL (65-105)
[2016-07-08] MEDS: Oxycodone/Acetaminophen 5/325 mg Tab PO PRN (08:43)
--- NOTE | 2016-07-08 09:43 | CP.PCM.PN ---
Subjective - Date & Time of Evaluation Date of Evaluation: 07/08/16 Time of Evaluation: 09:40 - Subjective Subjective: Medicine Progress note Patient seen and examined. No acute events overnight. Patient is pending discharge placement to care home. Dr Beck to discuss further with patient and daughter. All ROS negative at this time. Objective - Vital Signs/Intake and Output Vital Signs (last 24 hours): Temp Pulse Resp BP Pulse Ox 98.1 F 64 19 103/68 98 07/08/16 09:28 07/08/16 09:28 07/08/16 09:28 07/08/16 09:28 07/08/16 09:28 - Medications Medications: Current Medications Acetaminophen (Tylenol 325mg Tab) 650 mg PO Q6 PRN PRN Reason: Headache Last Admin: 07/04/16 18:00 Dose: 650 mg Albuterol/Ipratropium (Duoneb 3 Mg/0.5 Mg (3 Ml) Ud) 3 ml IH RQ6 [facility] Last Admin: 07/08/16 08:25 Dose: Not Given Aspirin (Aspirin Chewable) 81 mg PO DAILY [facility] Last Admin: 07/07/16 09:52 Dose: 81 mg Carvedilol (Coreg) 6.25 mg PO BID [facility] Last Admin: 07/07/16 17:35 Dose: 6.25 mg Clopidogrel Bisulfate (Plavix) 75 mg PO DAILY [facility] Last Admin: 07/07/16 09:52 Dose: 75 mg Dronabinol (Marinol) 2.5 mg PO BID [facility] Last Admin: 07/07/16 17:35 Dose: 2.5 mg Famotidine (Pepcid) 20 mg PO DAILY [facility] Last Admin: 07/07/16 09:52 Dose: 20 mg Ferrous Sulfate (Feosol) 325 mg PO DAILY [facility] Furosemide (Lasix) 40 mg IVP BID [facility] Last Admin: 07/07/16 17:36 Dose: 40 mg Heparin Sodium (Porcine) (Heparin) 5,000 units SC Q12 [facility] Last Admin: 07/07/16 21:22 Dose: 5,000 units Lorazepam (Ativan) 0.5 mg PO BID PRN PRN Reason: Anxiety Last Admin: 07/07/16 12:27 Dose: 0.5 mg Losartan Potassium (Cozaar) 25 mg PO DAILY [facility] Last Admin: 07/07/16 09:51 Dose: 25 mg Oxycodone/Acetaminophen (Percocet 5/325 Mg Tab) 1 tab PO Q4H PRN PRN Reason: Pain, severe (8-10) Stop: 07/08/16 18:15 Last Admin: 07/08/16 08:43 Dose: 1 tab Ranolazine (Ranexa) 500 mg PO BID [facility] Last Admin: 07/07/16 17:36 Dose: 500 mg Rosuvastatin Calcium (Crestor) 10 mg PO HS [facility] Last Admin: 07/07/16 21:23 Dose: 10 mg - Labs Labs: 07/08/16 06:55 07/08/16 06:55 PT 13.2 SECONDS (9.7-12.2) H 07/04/16 10:11 INR 1.2 07/04/16 10:11 APTT 26 SECONDS (21-34) 07/04/16 10:11 - Additional Findings Additional findings: - Constitutional Appears: Non-toxic, No Acute Distress, Cachectic - Head Exam Head Exam: ATRAUMATIC, NORMAL INSPECTION, NORMOCEPHALIC - Eye Exam Pupil Exam: NORMAL ACCOMODATION, PERRL - ENT Exam ENT Exam: Mucous Membranes Moist - Neck Exam Neck Exam: Normal Inspection - Respiratory Exam Respiratory Exam: Clear to Ausculation Bilateral, NORMAL BREATHING PATTERN. absent: Prolonged Expiratory Phase, Rales, Rhonchi, Wheezes - Cardiovascular Exam Cardiovascular Exam: REGULAR RHYTHM, +S1, +S2 - GI/Abdominal Exam GI & Abdominal Exam: Soft, Normal Bowel Sounds. absent: Tenderness, Diminished Bowel Sounds, Hernia, Hypoactive Bowel Sounds - Extremities Exam Extremities Exam: Normal Capillary Refill, Normal Inspection - Neurological Exam Neurological Exam: Alert, Awake, Oriented x3 - Psychiatric Exam Psychiatric exam: Normal Affect, Normal Mood - Skin Skin Exam: Dry, Intact, Normal Color, Warm Assessment and Plan - Assessment and Plan (Free Text) Assessment: Acute on Chronic systolic heart failure Echo- 06/25/16- Systolic function is mildly impaired, EF- 40-45%. Akinesis and thinning of basal and mid inferior wall and septal wall segments (both anterior and inferior)indicative of prior [place]. LA moderately dilated. RA mildly dilated. AV moderately sclerotic. Mod tricuspid regurg (please see full report) Patient was seen by Dr Kelley on previous visit. He recommended conservative treatment due to patient's DNR/DNI status at the time. However, the patient wishes to be full code on this visit and is still unsure about finalizing this decision. Dr Cedeño (PGY2) discussed code status in depth with patient and family (daughter, nephew, niece) at bedside on 07/04/16. At this time, patient wishes to be remain full code, she says she will decide later if she to be DNR/DNI. Consulted EP Dr Gustafson consulted- Per Dr. Gustafson, patient is not a candidate for ICD at this time. Patient has indicated that she does not want an ICD. Risks of her low EF and not receiving an ICD was explained in detail to her , she still refuses. Cardiology team signed off. MUGA scan- 06/20/16- EF 32% NEO negative x 2 BNP- 3280 Continue Coreg 6.25mg PO BID Continue Plavix 75mg PO Daily Continue Lasix 40mg IVP BID Continue Losartan 25mg PO Daily Continue Asa 81mg PO Daily Anxiety Ativan 0.5mg IVP BID prn Prophylactic Measure Heparin 5000U SC Q12h SCDs Protonix 40mg PO Daily All medical management as per Dr. Beck. Discharge planning discussed with Dr. Beck, patient and patient's daughter ( Juju)- patient will have arrangements made to go to a care home- daughter instructed to speak with social work.
--- NOTE | 2016-07-08 10:43 | CP.PCM.PN ---
<Hansa Jones - Last Filed: 07/08/16 11:14> Subjective - Date & Time of Evaluation Date of Evaluation: 07/08/16 Time of Evaluation: 10:40 - Subjective Subjective: PGY-[address] Gustafson Pt complained of R hip pain, chronic, relieved by percocet. Otherwise, no acute complaints per 12 point review. Objective - Vital Signs/Intake and Output Vital Signs (last 24 hours): Temp Pulse Resp BP Pulse Ox 98.1 F 64 19 103/68 98 07/08/16 09:28 07/08/16 09:28 07/08/16 09:28 07/08/16 09:28 07/08/16 09:28 - Medications Medications: Current Medications Acetaminophen (Tylenol 325mg Tab) 650 mg PO Q6 PRN PRN Reason: Headache Last Admin: 07/04/16 18:00 Dose: 650 mg Albuterol/Ipratropium (Duoneb 3 Mg/0.5 Mg (3 Ml) Ud) 3 ml IH RQ6 [facility] Last Admin: 07/08/16 08:25 Dose: Not Given Aspirin (Aspirin Chewable) 81 mg PO DAILY [facility] Last Admin: 07/07/16 09:52 Dose: 81 mg Carvedilol (Coreg) 6.25 mg PO BID [facility] Last Admin: 07/07/16 17:35 Dose: 6.25 mg Clopidogrel Bisulfate (Plavix) 75 mg PO DAILY [facility] Last Admin: 07/07/16 09:52 Dose: 75 mg Dronabinol (Marinol) 2.5 mg PO BID [facility] Last Admin: 07/07/16 17:35 Dose: 2.5 mg Famotidine (Pepcid) 20 mg PO DAILY [facility] Last Admin: 07/07/16 09:52 Dose: 20 mg Ferrous Sulfate (Feosol) 325 mg PO DAILY [facility] Furosemide (Lasix) 40 mg IVP BID [facility] Last Admin: 07/07/16 17:36 Dose: 40 mg Heparin Sodium (Porcine) (Heparin) 5,000 units SC Q12 [facility] Last Admin: 07/07/16 21:22 Dose: 5,000 units Lorazepam (Ativan) 0.5 mg PO BID PRN PRN Reason: Anxiety Last Admin: 07/07/16 12:27 Dose: 0.5 mg Losartan Potassium (Cozaar) 25 mg PO DAILY [facility] Last Admin: 07/07/16 09:51 Dose: 25 mg Oxycodone/Acetaminophen (Percocet 5/325 Mg Tab) 1 tab PO Q4H PRN PRN Reason: Pain, severe (8-10) Stop: 07/08/16 18:15 Last Admin: 07/08/16 08:43 Dose: 1 tab Ranolazine (Ranexa) 500 mg PO BID [facility] Last Admin: 07/07/16 17:36 Dose: 500 mg Rosuvastatin Calcium (Crestor) 10 mg PO HS [facility] Last Admin: 07/07/16 21:23 Dose: 10 mg - Labs Labs: 07/08/16 06:55 07/08/16 06:55 PT 13.2 SECONDS (9.7-12.2) H 07/04/16 10:11 INR 1.2 07/04/16 10:11 APTT 26 SECONDS (21-34) 07/04/16 10:11 - Constitutional Appears: No Acute Distress - Head Exam Head Exam: ATRAUMATIC, NORMOCEPHALIC - Eye Exam Eye Exam: EOMI, Normal appearance Pupil Exam: NORMAL ACCOMODATION - ENT Exam ENT Exam: Mucous Membranes Moist - Respiratory Exam Respiratory Exam: Decreased Breath Sounds (lung bases, scoliosis), Clear to Ausculation Bilateral, NORMAL BREATHING PATTERN. absent: Rales, Rhonchi, Wheezes - Cardiovascular Exam Cardiovascular Exam: REGULAR RHYTHM, +S1, +S2. absent: Murmur - GI/Abdominal Exam GI & Abdominal Exam: Soft, Normal Bowel Sounds. absent: Guarding, Rigid, Tenderness - Back Exam Back Exam: absent: CVA tenderness (L), CVA tenderness (R) - Neurological Exam Neurological Exam: Alert, Awake, Oriented x3 - Psychiatric Exam Psychiatric exam: Normal Affect, Normal Mood - Skin Skin Exam: Dry, Warm Assessment and Plan - Assessment and Plan (Free Text) Plan: 81 F Pt (Prior DNR/DNI, now FULL CODE) from home with PMHx of CHF, COPD, CAD ( MIs 2015, 2017) s/p GARRY in RCA, ischemic cardiomyopathy on home O2, HTN s/o came to hospital on 07/05 for SOB. Cardiology was consulted evaluation of ICD placement but pt is not a candidate and pt herself refused. Pt was recently discharged on 07/04 for the SOB. Pt is on lasix and bronchodilators. CHF, systolic, acute on chronic, class III Ischemic cardiomyopathy - Lasox 40 IV BID, Duoneb, bipap HS --> change to Lasix PO 80 bid (2:1 IV:PO conversion) Cardiomyopathy, likely ischemic, home O2 - Pt is not a candidate for ICD. Pt refused ICD replacement. Hx CAD, 2 MIs 2015, 2016 GARRY in RCA - ASA and plavix daily - Carvedilol 6.25 BID, Losartan 25 daily, Crestor 10 HS - Ranexa 500 PO BID HTN - controlled Sinus tachycardia 106, wide QRS - resolved - supraventricular, QTc 486 - rapid ventricular with wide complex 10:34am nonsustained, V5 lead only. Hemodynamically stable Anxiety, Hx xanax abuse - psych consult Prophylaxis - Heparin 5000 BID Cardiology Imaging: - CXR shows mild improvement of vascular congestion - EKG 07/05/2016: Sinus tachycardia with premature supravetricular complexes, 106 bpm, left axis deviation, normal [place] and QRS interval, prolonged QTC 486ms, LVH with QRS widening and replolarization abnormality, - Echo 06/25/2016 EF 40-45%, akinesis and thinning of the basal and mid-inferior wall and septal wall segments (indiactvie of prior [place]), severe MR, Transmitral doppler flow pattern is Grade II pseudonormal filling dynamics, poor MV leaflet coaptiation due to papillary muscle discplacemetn secondary to [place], aortic valuve is moderatly sclerotic, PAP 40-50, RAP 5-10. - Cardiac Cath 12/29/2015: PCI of mid RC with 2.5mm x 18 mm Xience GARRY, severe 2- vessel disease (99% occlusion of RCA TIMIT II flow, 20% stenosis distal left main, 80-50% stenosis proximal LAD, 90% stenosis mid LAD, 95% apical stenosis LAd, EF 30-35%) - MUGA 06/20: Abnodmral KIM study, EF32% - Troponins Negative x2 (0.0230, 0.0300) - CK MB negative x1 0.65 - BNP elevated: 3280 Disposition: - Pending medicaid approval - Estimate discharge on Monday to [facility], but may take up to 2 weeks Will S/D/R/w Dr. Gustafson <Iraida Gustafson - Last Filed: 08/08/16 07:29> Objective - Vital Signs/Intake and Output Vital Signs (last 24 hours): Temp Pulse Resp BP Pulse Ox 98 F 63 19 105/60 97 07/09/16 08:18 07/09/16 08:18 07/09/16 08:18 07/09/16 10:09 07/09/16 08:18 - Labs Labs: 07/09/16 07:13 07/09/16 07:13 PT 13.2 SECONDS (9.7-12.2) H 07/04/16 10:11 INR 1.2 07/04/16 10:11 APTT 26 SECONDS (21-34) 07/04/16 10:11 Attending/Attestation - Attestation I have personally seen and examined this patient.: Yes I have fully participated in the care of the patient.: Yes I have reviewed all pertinent clinical information, including history, physical exam and plan: Yes Notes (Text): 08/08/16 07:28 pain meds given continue chf meds
[2016-07-08] MEDS: Ranolazine 500 mg Extended Release Tablets PO SCH ×2 (11:43→18:36)
[2016-07-08] MEDS ORDERED: Benzocaine/Menthol (Cepacol) Lozenge MT PRN (17:24)
--- NOTE | 2016-07-08 22:32 | PCM.PSYCH ---
Initial Psychiatric Evaluation - Initial Psychiatric Evaluation Type of Admission: Voluntary Legal Status: Capacity Chief Complaint (in patient's own words): "I'm fine" History of Present Illness and Precipitating Events: The patient is seen, chart reviewed and case discussed. Consultation was requested for patient's substance use and confusion. This is an 81-year-old female, with 4 children, living with her one granddaughter, retired. She is well known to the advertising writer from previous consultations. Mines Safety Engineer spoke to one of her daughters, Ms. Bryan, with her permission. It is reported that the patient was confused 2 days ago but now she is more lucid and oriented 3. Her attention and memory are low as before. She denies feeling depressed as much but still has some symptoms and she complains of anxiety. She still minimizes her opiates and Xanax use but her daughter states that in [place] she used to take many pills every day and now decreased and currently taking nothing. No withdrawal symptoms appreciated. Patient will be admitted to nursing, but she is undecided. Daughter thinks she may benefit from Suboxone maintenance, again, the patient is undecided. She claims she only takes 1 or 2 opiate painkillers a week. Past psych history: No admissions but outpatient treatment Medical history: Rheumatoid arthritis Family psych history: Her daughter has bipolar disorder Current Medications: Active Medications Generic Name Dose Route Start Last Admin Trade Name Freq PRN Reason Stop Dose Admin Acetaminophen 650 mg 07/04/16 17:14 07/04/16 18:00 Tylenol 325mg Tab PO 650 mg Q6 PRN Administration Headache Albuterol/Ipratropium 3 ml 07/04/16 14:00 07/08/16 18:56 Duoneb 3 Mg/0.5 Mg (3 Ml) Ud IH 3 ml RQ6 [facility] Administration Aspirin 81 mg 07/05/16 10:00 07/08/16 11:42 Aspirin Chewable PO 81 mg DAILY [facility] Administration Benzocaine/Menthol 1 hill 07/08/16 17:24 07/08/16 18:36 Cepacol Sore Throat MT 1 hill Q8H PRN Administration Sore Throat Carvedilol 6.25 mg 07/04/16 18:00 07/08/16 18:36 Coreg PO 6.25 mg BID [facility] Administration Clopidogrel Bisulfate 75 mg 07/05/16 10:00 07/08/16 11:42 Plavix PO 75 mg DAILY [facility] Administration Dronabinol 2.5 mg 07/04/16 18:00 07/08/16 18:36 Marinol PO 2.5 mg BID [facility] Administration Famotidine 20 mg 07/04/16 12:45 07/08/16 11:42 Pepcid PO 20 mg DAILY [facility] Administration Ferrous Sulfate 325 mg 07/08/16 10:00 07/08/16 11:43 Feosol PO 325 mg DAILY [facility] Administration Furosemide 80 mg 07/08/16 18:00 07/08/16 19:18 Lasix PO 80 mg BID [facility] Administration Heparin Sodium (Porcine) 5,000 units 07/04/16 12:30 07/08/16 22:10 Heparin SC 5,000 units Q12 [facility] Administration Lorazepam 0.5 mg 07/04/16 22:00 07/08/16 19:18 Ativan PO 0.5 mg BID PRN Administration Anxiety Losartan Potassium 25 mg 07/05/16 10:00 07/08/16 11:43 Cozaar PO 25 mg DAILY [facility] Administration Ranolazine 500 mg 07/04/16 18:00 07/08/16 18:36 Ranexa PO 500 mg BID [facility] Administration Rosuvastatin Calcium 10 mg 07/04/16 22:00 07/08/16 22:10 Crestor PO 10 mg HS [facility] Administration Past Psychiatric History - Past Psychiatric History Previous Treatment History: None Pertinent Medical Hx (Current Medical&Sleep Prob, Allergies): Allergies Allergy/AdvReac Type Severity Reaction Status Date / Time moxifloxacin HCl Allergy Severe ANAPHYLAXIS Verified 07/04/16 09:23 [From Avelox] Acetaminophen 325 mg PO 07/04/16 Albuterol/Ipratropium [Duoneb 3 mg/0.5 mg (3 ml) UD] 3 ml IH 07/04/16 Aspirin 81 mg PO DAILY 07/04/16 Bisacodyl [Woman's Laxative] 5 mg PO 07/04/16 Carvedilol [Coreg] 3.125 mg PO BID 07/04/16 Docusate Sodium 100 mg PO 07/04/16 Dronabinol [Marinol] 2.5 mg PO 07/04/16 Lactulose 10 gm PO 07/04/16 Mag Hydrox/Aluminum Hyd/Simeth [Antacid Plus Anti-Gas Liquid] 5 ml PO 07/04/16 Magnesium Hydroxide [Milk Of Magnesia] 30 ml PO 07/04/16 Melatonin 1 tab PO 07/04/16 Nicotine 14 mg/24 hr [Nicoderm CQ] 1 patch TD 07/04/16 guaiFENesin [Robitussin] 100 mg PO 07/04/16 Clopidogrel [Plavix] 75 mg PO DAILY tab 07/08/16 Ferrous Sulfate [Feosol] 325 mg PO DAILY tab 07/08/16 Furosemide [Lasix] 80 mg PO BID tab 07/08/16 Losartan [Cozaar] 25 mg PO DAILY tab 07/08/16 Ranolazine [Ranexa] [address] 07/08/16 Rosuvastatin Calcium [Crestor] 10 mg PO HS tab 07/08/16 oxyCODONE/Acetaminophen [Percocet 5/325 mg Tab] 1 tab PO Q4H PRN tab 07/08/16 Review of Systems - Neurological Neurological: Weakness - Psychiatric Psychiatric: Abnormal Sleep Pattern, Anxiety, Difficulty Concentrating, Irritability. absent: Hallucinations, Homicidal Ideation, Paranoia, Suicidal Ideation Mental Status Examination - Personal Presentation Personal Presentation: Looks stated age - Affect Affect: Constricted - Motor Activity Motor Activity: Calm - Reliability in Providing Information Reliability in Providing Information: Fair - Speech Speech: Organized - Mood Mood: Anxious - Formal Thought Process Formal Thought Process: No Impairment - Cognitive Functions Orientation: Person, Place, Situation, Time Sensorium: Alert Attention/Concentration: Easily distracted Abstract Thinking: [place] Estimate of Intelligence: Average Judgement: Intact, as evidence by: Insight regarding need for hospitalization Memory: Recent impaired, as evidence by: Inability to recall events of the day, Remote impaired as evidenced by: Inability to recall sig life events - Risk Risk: Diminished functioning - Strength & Assets Inventory Strength & Assets Inventory: Family support, Cooperative - Limitations Limitations: Other (Chronic history) DSM 5 DX - DSM 5 DSM 5 Diagnosis: Primary: Anxiety disorder-unspecified Depressive disorder-unspecified Sedative, hypnotic and anxiolytic use disorder-moderate Opioid use disorder Amnestic disorder-unspecified. Rule out dementia - Recommended/Plan of Treatment Treatment Recommendations and Plan of Treatment: Gabapentin for anxiety and benzo abuse Frequent orientation and support No need for detox as she is not in withdrawal Patient's daughter Ms. Bryan asked about Suboxone maintenance treatment. If the patient is going to a [facility] it is not needed, however otherwise she may benefit from low-dose maintenance, which may help her pain too. [place] for abstinence 33 minutes
[2016-07-09 00:19] VITALS: TEMP 98; O2SAT 97
[2016-07-09] MEDS: Albuterol-Ipratrop 3 mg / 0.5 (3 ml) UD IH SCH ×3 (01:33→13:58)
--- NOTE | 2016-07-09 07:32 | CP.PCM.PN ---
Subjective - Date & Time of Evaluation Date of Evaluation: 07/09/16 Time of Evaluation: 07:21 - Subjective Subjective: no cp or sob Objective - Vital Signs/Intake and Output Vital Signs (last 24 hours): Temp Pulse Resp BP Pulse Ox 98 F 61 20 100/63 97 07/09/16 00:00 07/09/16 00:00 07/09/16 00:00 07/09/16 00:00 07/09/16 00:00 Intake and Output: 07/09/16 07/09/16 06:59 18:59 Intake Total 480 Balance 480 - Medications Medications: Current Medications Acetaminophen (Tylenol 325mg Tab) 650 mg PO Q6 PRN PRN Reason: Headache Last Admin: 07/04/16 18:00 Dose: 650 mg Albuterol/Ipratropium (Duoneb 3 Mg/0.5 Mg (3 Ml) Ud) 3 ml IH RQ6 [facility] Last Admin: 07/09/16 01:33 Dose: Not Given Aspirin (Aspirin Chewable) 81 mg PO DAILY [facility] Last Admin: 07/08/16 11:42 Dose: 81 mg Benzocaine/Menthol (Cepacol Sore Throat) 1 hill MT Q8H PRN PRN Reason: Sore Throat Last Admin: 07/08/16 18:36 Dose: 1 hill Carvedilol (Coreg) 6.25 mg PO BID [facility] Last Admin: 07/08/16 18:36 Dose: 6.25 mg Clopidogrel Bisulfate (Plavix) 75 mg PO DAILY [facility] Last Admin: 07/08/16 11:42 Dose: 75 mg Dronabinol (Marinol) 2.5 mg PO BID [facility] Last Admin: 07/08/16 18:36 Dose: 2.5 mg Famotidine (Pepcid) 20 mg PO DAILY [facility] Last Admin: 07/08/16 11:42 Dose: 20 mg Ferrous Sulfate (Feosol) 325 mg PO DAILY [facility] Last Admin: 07/08/16 11:43 Dose: 325 mg Furosemide (Lasix) 80 mg PO BID [facility] Last Admin: 07/08/16 19:18 Dose: 80 mg Heparin Sodium (Porcine) (Heparin) 5,000 units SC Q12 [facility] Last Admin: 07/08/16 22:10 Dose: 5,000 units Lorazepam (Ativan) 0.5 mg PO BID PRN PRN Reason: Anxiety Last Admin: 07/08/16 19:18 Dose: 0.5 mg Losartan Potassium (Cozaar) 25 mg PO DAILY [facility] Last Admin: 07/08/16 11:43 Dose: 25 mg Ranolazine (Ranexa) 500 mg PO BID [facility] Last Admin: 07/08/16 18:36 Dose: 500 mg Rosuvastatin Calcium (Crestor) 10 mg PO HS [facility] Last Admin: 07/08/16 22:10 Dose: 10 mg - Labs Labs: 07/08/16 06:55 07/08/16 06:55 PT 13.2 SECONDS (9.7-12.2) H 07/04/16 10:11 INR 1.2 07/04/16 10:11 APTT 26 SECONDS (21-34) 07/04/16 10:11 - Constitutional Appears: Chronically Ill - Head Exam Head Exam: ATRAUMATIC - Eye Exam Eye Exam: Normal appearance - ENT Exam ENT Exam: Mucous Membranes Moist - Respiratory Exam Respiratory Exam: absent: Rales - Cardiovascular Exam Cardiovascular Exam: REGULAR RHYTHM, Murmur - GI/Abdominal Exam GI & Abdominal Exam: Soft, Normal Bowel Sounds - Exam External exam: NORMAL EXTERNAL EXAM - Extremities Exam Extremities Exam: absent: Pedal Edema - Neurological Exam Neurological Exam: Awake - Psychiatric Exam Psychiatric exam: Normal Mood - Skin Skin Exam: Intact Assessment and Plan (1) Ventricular tachycardia Assessment & Plan: continue chf care and beta blockers for arrhythmia Status: Resolved
[2016-07-09 07:40] LABS: BASO # 0.1 K/uL (0.0-0.2); BASO % 1.4 % (0.0-2.0); EOS # 0.2 K/uL (0.0-0.7); EOS % 2.6 % (0.0-4.0); HEMATOCRIT 27.3 % (34.0-47.0); LYMPH # 1.9 K/uL (1.0-4.3); LYMPH % 23.5 % (20.0-40.0); MEAN CELL VOLUME 70.5 fL (81.0-99.0); MEAN CORPUSCULAR HEMOGLOBIN 23.2 pg (27.0-31.0); MEAN CORPUSCULAR HGB CONC 32.9 g/dL (33.0-37.0); MONO # 0.9 K/uL (0.0-0.8); MONO % 11.7 % (0.0-10.0); NRBC % 0.1 % (0.0-2.0); RED CELL DISTRIBUTION WIDTH 17.3 % (11.5-14.5); WHITE BLOOD COUNT 7.9 K/uL (4.8-10.8)
[2016-07-09 08:19] LABS: CHLORIDE 94 mmol/L (98-107); SODIUM 134 mmol/L (132-148)
[2016-07-09 08:20] VITALS: PULSE 63; RESP 19
[2016-07-09 08:20] LABS: POTASSIUM 3.4 mmol/L (3.6-5.2)
[2016-07-09 08:22] LABS: ALB/GLOB RATIO 1.2 (1.0-2.1); ALKALINE PHOSPHATASE 79 U/L (38-126); ALT/SGPT 16 U/L (9-52); AST/SGOT 23 U/L (14-36); BILIRUBIN,TOTAL 0.9 mg/dL (0.2-1.3); BLOOD UREA NITROGEN 24 mg/dL (7-17); CARBON DIOXIDE 26 mmol/L (22-30); GFR AFRICAN-AMERICAN > 60; GLUCOSE,RANDOM 95 mg/dL (65-105); TOTAL PROTEIN 7.5 g/dL (6.3-8.3)
[2016-07-09 08:23] LABS: CALCIUM 8.9 mg/dl (8.6-10.4)
[2016-07-09] MEDS ORDERED: Potassium Chloride 20 mEq ER Tab PO SCH (10:00)
[2016-07-09 10:10] VITALS: BP 105/60
[2016-07-09] MEDS: Ranolazine 500 mg Extended Release Tablets PO SCH (10:11)
--- NOTE | 2016-07-11 07:41 | PN ---
DATE: 07/09/2016 Patient getting supportive care, complain of weakness, heart failure. Gisselle Vogel MD cc: [id number] TT: 07/09/2016 19:35:30 Confirmation # [id number] Dictation # [id number] dn 07/11/2016 06:40:35
--- NOTE | 2016-07-11 13:37 | PCM.HF ---
Heart Failure Core Measure - Heart Failure Ejection Fraction: 40 % or Greater (EF 40-45%) KANDIS Inhibitor Prescribed: No Contraindication/Reason for not providing: on arb Beta-Wesley Prescribed: Carvedilol Angiotensin II Receptor Wesley Prescribed: Yes Aldosterone Antagonist Prescribed: No Contraindication/Reason for not providing: no afib Hydralazine Nitrate Prescribed: No Contraindication/Reason for not providing: EF>40% Implantable Cardioverter Defibrillator Therapy: No Contraindication/Reason for not providing: EF >40% Cardiac Resynchronization Therapy Prescribed: No Contraindication/Reason for not providing: not indicated - Follow up Will be discharged to: Home (with family) Follow Up Date (must be within 7 days from discharge): 07/12/16 Follow Up Time: 09:00
[2016-07-13] MEDS ORDERED: Pantoprazole 40 mg EC Tab PO SCH (10:00)
--- NOTE | 2016-08-15 10:37 | DS ---
The patient admitted to the hospital with chief complaint of shortness of breath, weakness, fatigue, tiredness. The patient came to the ER, was advised admission. The patient treated with bedrest, sup portive care, bronchodilator. Continue treatment. Gisselle Vogel MD cc: [id number] TT: 08/12/2016 11:03:01 tn
== END 2016-07-09 14:51 | disposition home or self-care (01) | DRG 293 ==
LOC: C.ER 09:12 → C.9E 10:46 → C.5T 16:40
PROVIDERS: ADMIT Internal Medicine Pulmonary Disease; ATTEND Internal Medicine Pulmonary Disease
PROC: 5A09557 Assistance with Respiratory Ventilation, Greater than 96 Consecutive Hours, Continuous Positive Airway Pressure (ICD-10-PCS; principal; 2016-07-04)
DX: I11.0 Hypertensive heart disease with heart failure (principal); F03.90 Unspecified dementia, unspecified severity, without behavioral disturbance, psychotic disturbance, mood disturbance, and anxiety; I42.9 Cardiomyopathy, unspecified; I07.1 Rheumatic tricuspid insufficiency; E11.9 Type 2 diabetes mellitus without complications; D72.829 Elevated white blood cell count, unspecified; I50.23 Acute on chronic systolic (congestive) heart failure; J44.9 Chronic obstructive pulmonary disease, unspecified; F41.9 Anxiety disorder, unspecified; I25.10 Atherosclerotic heart disease of native coronary artery without angina pectoris; I25.2 Old myocardial infarction; M06.9 Rheumatoid arthritis, unspecified; R09.02 Hypoxemia; Z95.5 Presence of coronary angioplasty implant and graft; Z95.810 Presence of automatic (implantable) cardiac defibrillator; F19.10 Other psychoactive substance abuse, uncomplicated; F32.89 Other specified depressive episodes; I25.5 Ischemic cardiomyopathy; R00.0 Tachycardia, unspecified

== ENCOUNTER 2016-07-12 12:24 | Inpatient (IN) | payer MEDICARE, MEDICAID ==
[2016-07-12 12:24] VITALS: BMI 18.1
[2016-07-12] MEDS ORDERED: Sodium Chloride 0.9% 250 ML IV ONE ×4 (12:52→15:51)
[2016-07-12 13:13] LABS: VENOUS BLOOD GAS BASE EXCESS -1.4 mmol/L (0.0-2.0); VENOUS BLOOD GAS PCO2 36 mmHg (40-60); VENOUS BLOOD PH 7.41 (7.32-7.43)
[2016-07-12 13:17] LABS: BASO # 0.1 K/uL (0.0-0.2); BASO % 1.1 % (0.0-2.0); EOS # 0.2 K/uL (0.0-0.7); EOS % 1.7 % (0.0-4.0); HEMATOCRIT 28.8 % (34.0-47.0); LYMPH # 1.5 K/uL (1.0-4.3); LYMPH % 14.9 % (20.0-40.0); MEAN CORPUSCULAR HEMOGLOBIN 22.6 pg (27.0-31.0); MEAN CORPUSCULAR HGB CONC 31.8 g/dL (33.0-37.0); MEAN PLATELET VOLUME 10.2 fL (7.2-11.7); MONO # 1.1 K/uL (0.0-0.8); MONO % 11.3 % (0.0-10.0); RED CELL DISTRIBUTION WIDTH 17.6 % (11.5-14.5); WHITE BLOOD COUNT 9.9 K/uL (4.8-10.8)
[2016-07-12 13:26] LABS: INR 1.2
[2016-07-12 13:28] LABS: CHLORIDE 96 mmol/L (98-107); POTASSIUM 3.3 mmol/L (3.6-5.2); SODIUM 134 mmol/L (132-148)
[2016-07-12 13:30] LABS: AST/SGOT 20 U/L (14-36); BILIRUBIN,TOTAL 1.4 mg/dL (0.2-1.3); CARBON DIOXIDE 22 mmol/L (22-30); GFR AFRICAN-AMERICAN > 60
[2016-07-12 13:31] LABS: ALB/GLOB RATIO 1.5 (1.0-2.1); ALKALINE PHOSPHATASE 86 U/L (38-126); ALT/SGPT 20 U/L (9-52); BLOOD UREA NITROGEN 18 mg/dL (7-17); CALCIUM 8.8 mg/dl (8.6-10.4); GLUCOSE,RANDOM 95 mg/dL (65-105)
--- NOTE | 2016-07-12 13:54 | RAD ---
HISTORY: SOB COMPARISON: Chest x-ray performed 07/06/16 TECHNIQUE: Chest, one view. FINDINGS: LUNGS: Biapical pleural thickening. Scattered probable calcified granulomas. Please note that chest x-ray has limited sensitivity for the detection of pulmonary masses. PLEURA: No significant pleural effusion identified. No definite pneumothorax . CARDIOVASCULAR: Cardiomegaly. Atherosclerotic calcifications of the aorta. OSSEOUS STRUCTURES: Degenerative changes. Marked scoliosis convex to the left. VISUALIZED UPPER ABDOMEN: Unremarkable. OTHER FINDINGS: None. IMPRESSION: Cardiomegaly. Scattered probable calcified granulomas. Additional findings as above.
[2016-07-12] MEDS ORDERED: Potassium Chloride 20 mEq ER Tab PO STA (14:19)
--- NOTE | 2016-07-12 14:20 | C.PDOC ---
History Of Present Illness Patient BIBA for evaluation of worsening SOB, chest pain, abdominal pain, neck pain & back pain. She has h/o atrial fibrillation, CHF, HTN, DM, asthma/copd. She denies vomiting or diarrhea, dysuria/hematuria, cough, fever. Time Seen by Provider: 07/12/16 12:32 Chief Complaint (Nursing): Chest Pain History Per: Patient, EMS History/Exam Limitations: no limitations Onset/Duration Of Symptoms: Other (several days) Current Symptoms Are (Timing): Still Present Severity: Mild Past Medical History Reviewed: Historical Data, Nursing Documentation, Vital Signs Vital Signs: Last Vital Signs Temp 98.2 F 07/17/16 08:20 Pulse 72 07/17/16 15:40 Resp 18 07/17/16 08:20 BP 119/57 L 07/17/16 17:34 Pulse Ox 99 07/17/16 08:20 - Medical History PMH: Anxiety, Arthritis, Asthma, Atrial Fibrillation, CHF, COPD, Dementia, Diabetes, Gall Bladder Disease, HTN, Hypercholesterolemia, Osteoporosis, Pneumonia (08/2015), Rheumatoid Arthritis Surgical History: Cholecystectomy, Coronary Stent (proximal RCA stent, 2 weeks ago) - Sensorin Procedures ASSISTANCE WITH RESPIRATORY VENTILATION, <24 HRS, CPAP (01/17/16) ASSISTANCE WITH RESPIRATORY VENTILATION, >96 HRS, CPAP (07/04/16) CONTINUOUS INVASIVE MECHANICAL VENTILATION <96 CONSEC HRS (08/07/12) DILATION OF 1 COR ART WITH DRUG-ELUT INTRA, PERC APPROACH (12/29/15) INJECT/INFUSE NEC (02/11/14) LAPAROSCOPIC CHOLECYSTECTOMY (08/07/12) NEBULIZER THERAPY (09/10/13) OXYGEN ENRICHMENT NEC (08/07/12) RESPIRATORY VENTILATION, LESS THAN 24 CONSECUTIVE HOURS (06/19/16) VITAL CAPACITY DETERMIN (08/07/12) Family History: States: Other Other Family History: noncontributory - Social History Hx Tobacco Use: No Hx Alcohol Use: No Hx Substance Use: No - Immunization History Hx Tetanus Toxoid Vaccination: No Hx Influenza Vaccination: No Hx Pneumococcal Vaccination: No Review Of Systems Except As Marked, All Systems Reviewed And Found Negative. Constitutional: Negative for: Fever, Chills Cardiovascular: Positive for: Chest Pain. Negative for: Palpitations Respiratory: Positive for: Shortness of Breath. Negative for: Cough Gastrointestinal: Positive for: Abdominal Pain. Negative for: Nausea, Vomiting , Diarrhea Genitourinary: Negative for: Dysuria, Hematuria Musculoskeletal: Positive for: Neck Pain, Back Pain Physical Exam - Physical Exam Appears: Well, Non-toxic, In Acute Distress (in mild distress) Skin: Normal Color, Warm, Dry Eye(s): bilateral: Normal Inspection Oral Mucosa: Moist Cardiovascular: Rhythm Irregular (occassionally irregular) Respiratory: No Accessory Muscle Use, Rales (mild rales at bases B/L ), No Rhonchi, No Wheezing Gastrointestinal/Abdominal: Normal Exam, Bowel Sounds, Soft, No Tenderness Extremity: Normal ROM, No Pedal Edema, No Calf Tenderness Pulses: Left Dorsalis Pedis: Normal, Right Dorsalis Pedis: Normal Neurological/Psych: Oriented x3 ED Course And Treatment - Laboratory Results Result Diagrams: 07/17/16 08:12 07/17/16 08:12 ECG: Interpreted By Me, Viewed By Me (sinus rhythm 70 bpm, PACs,left axis deviation, Q waves II, III, aVF, no acutye ST changes) ECG Interpretation: No Changes From Prior (unchanged from ekg on 07/05/16), Abnormal O2 Sat by Pulse Oximetry: 100 (RA) Pulse Ox Interpretation: Normal - Other Rad CXR X-Ray: Viewed By Me, Read By Radiologist Interpretation: Accession No. : [id number]. Patient Name / ID : AINSLEY REHMAN / [id number]. Exam Date : 07/12/2016 12:38:00 ( Approved ). Study Comment : Sex / Age : F / [id number]. Creator : Joyce Esquivel MD. Dictator : Joyce Esquivel MD. Dental Hygiene Administrative Assistant : Operations Technician : Joyce Esquivel MD. Approver2 : Report Date : 07/12/2016 13:53:21. My Comment : . HISTORY: SOB. COMPARISON: Chest x-ray performed 07/06/16. TECHNIQUE: Chest, one view. FINDINGS: LUNGS: Biapical pleural thickening. Scattered probable calcified granulomas. Please note that chest x-ray has limited sensitivity for the detection of pulmonary masses. PLEURA: No significant pleural effusion identified. No definite pneumothorax . CARDIOVASCULAR: Cardiomegaly. Atherosclerotic calcifications of the aorta. OSSEOUS STRUCTURES: Degenerative changes. Marked scoliosis convex to the left. VISUALIZED UPPER ABDOMEN: Unremarkable. OTHER FINDINGS: None. IMPRESSION: Cardiomegaly. Scattered probable calcified granulomas. Additional findings as above. Progress Note: Blood work, CXR, EKG, UA ordered. No Lasix given due to borderline BP. Patient's prior records reviewed, and she typically has BP that is borderline low. She has faint rales and is no respiratory distress, CXR clear. IV NS bolus given. Reevaluation Time: 17:45 Reassessment Condition: Improved (Patient's BP improved with fluid boluses, and patient not in any acute resp distress. Prior visits reviewed, patient's BP typically runs in 90s/50-60s.) - Physician Consult Information Physician Contacted: Gisselle Beck Outcome Of Conversation: Discussed patient with PMD, he agrees with admission to his service. Disposition - Disposition Disposition Time: 15:11 Condition: FAIR - Clinical Impression Clinical Impression: Failure to thrive, Labile blood pressure, CHF (congestive heart failure) Decision To Admit - Pt Status Changed To: Hospital Disposition Of: Observation - . Bed Request Type: Telemetry Admitting Physician: Gisselle Beck Patient Diagnosis: CHF (congestive heart failure), CHF exacerbation, Failure to thrive, Labile blood pressure
[2016-07-12] MEDS ORDERED: Potassium Chloride 20 mEq ER Tab PO ONE (14:35)
[2016-07-12 15:53] LABS: RBC URINE 2 /hpf (0-3); URINE BILIRUBIN NEGATIVE (NEGATIVE); URINE BLOOD NEGATIVE (NEGATIVE); URINE COLOR Yellow (YELLOW); URINE GLUCOSE (UA) NORMAL (Normal); URINE KETONE NEGATIVE (NEGATIVE); URINE LEUKOCYTE ESTERASE NEG Leu/uL (Negative); URINE PROTEIN NEGATIVE (NEGATIVE); WBC URINE 1 /hpf (0-5)
--- NOTE | 2016-07-12 16:20 | CP.PCM.PN ---
Subjective - Date & Time of Evaluation Date of Evaluation: 07/12/16 Time of Evaluation: 16:00 - Subjective Subjective: Medicine Note- Dr. Beck's service Patient was seen and examined at bedside. Patient reports that for the past 3 days, she has been feeling horrible. She says she has been short of breath, nauseous, had a low appetite. She is unsure if she has been compliant with her medications. Objective - Vital Signs/Intake and Output Vital Signs (last 24 hours): Temp Pulse Resp BP Pulse Ox 98.3 F 78 16 92/41 L 100 07/12/16 12:31 07/12/16 14:52 07/12/16 14:52 07/12/16 14:52 07/12/16 15:05 Intake and Output: 07/12/16 07/12/16 06:59 18:59 Output Total 100 Balance -100 - Medications Medications: Current Medications Sodium Chloride (Sodium Chloride 0.9%) 250 mls @ 250 mls/hr IV .Q1H ONE Stop: 07/12/16 16:50 Last Admin: 07/12/16 15:53 Dose: 250 mls/hr - Labs Labs: PT 13.6 SECONDS (9.7-12.2) H 07/12/16 13:05 INR 1.2 07/12/16 13:05 APTT 27 SECONDS (21-34) 07/12/16 13:05 - Constitutional Appears: Non-toxic, No Acute Distress, Chronically Ill - Head Exam Head Exam: ATRAUMATIC, NORMAL INSPECTION, NORMOCEPHALIC - Eye Exam Pupil Exam: NORMAL ACCOMODATION, PERRL - ENT Exam ENT Exam: Mucous Membranes Moist - Respiratory Exam Respiratory Exam: Clear to Ausculation Bilateral, NORMAL BREATHING PATTERN. absent: Prolonged Expiratory Phase, Rales, Rhonchi, Wheezes - Cardiovascular Exam Cardiovascular Exam: REGULAR RHYTHM, +S1, +S2 - GI/Abdominal Exam GI & Abdominal Exam: Soft, Normal Bowel Sounds. absent: Tenderness, Diminished Bowel Sounds, Hypoactive Bowel Sounds - Extremities Exam Extremities Exam: Normal Capillary Refill, Normal Inspection - Neurological Exam Neurological Exam: Alert, Awake, Oriented x3 - Psychiatric Exam Psychiatric exam: Normal Affect, Normal Mood - Skin Skin Exam: Dry, Intact, Normal Color, Warm Assessment and Plan - Assessment and Plan (Free Text) Assessment: Acute on Chronic systolic heart failure Echo- 4/29/17- Systolic function is mildly impaired, EF- 40-45%. Akinesis and thinning of basal and mid inferior wall and septal wall segments (both anterior and inferior)indicative of prior [place]. LA moderately dilated. RA mildly dilated. AV moderately sclerotic. Mod tricuspid regurg (please see full report) Patient was seen by Dr Kelley on previous visit. He recommended conservative treatment due to patient's DNR/DNI status at the time. However, the patient wishes to be full code on this visit and is still unsure about finalizing this decision. Dr Cedeño (PGY2) discussed code status in depth with patient and family (daughter, nephew, niece) at bedside on 07/04/16. At this time, patient wishes to be remain full code, she says she will decide later if she to be DNR/DNI. Per Dr. Gustafson on last visit, patient is not a candidate for ICD at this time. Patient has indicated that she does not want an ICD. Risks of her low EF and not receiving an ICD was explained in detail to her, she still refuses. Cardiology team signed off. MUGA scan- 06/20/16- EF 32% NEO negative x 1, f/u ROMIs x 2 BNP- 1730 Continue Coreg 6.25mg PO BID Continue Plavix 75mg PO Daily Continue Lasix 40mg IVP BID Continue Losartan 25mg PO Daily Continue Asa 81mg PO Daily Prophylactic Measure Heparin 5000U SC Q12h SCDs Protonix 40mg PO Daily All medical management as per Dr. Beck. Patient will remain full code for now. Patient wishes to discuss with daughter at later time .
[2016-07-13] MEDS ORDERED: Albuterol-Ipratrop 3 mg / 0.5 (3 ml) UD ONE (03:20)
[2016-07-13] MEDS ORDERED: Enalaprilat 2.5 MG/2 ML IV ONE (03:27)
[2016-07-13] MEDS ORDERED: Nitroglycerin 2% Ointment Foilpak UD TOP ONE ×2 (03:27→03:37)
[2016-07-13] MEDS ORDERED: Potassium Chloride 20 mEq ER Tab PO ONE (05:07)
--- NOTE | 2016-07-13 05:15 | CP.PCM.CON ---
History of Present Illness - History of Present Illness History of Present Illness: This is an 81 year old female with multiple medical problems and multiple admission to the hospital with recent discharge who comes for multiple medical complaints including, cp, sob, abdominal pain. She was given 500 mL of IV fluids in ER with initial x-ray pretty much clear and now she is on respiratory distress with minimal crackles on inhalation and loud ronchi on exalation bilateral. She speaks in full sentences, is tachypneic and says she want to go with her daughte to [place] and is asking for her coffee. Placed 2 IV lines on the floor, 40 mg of lasix IV resulted in 600 mL of UO, currently on BiPAP 10 ros asked and negative except for sob. pe: bp 145/85 mhg, hr 90, O2 100% on 100% fio2, rr 32 aaox3 s1, s2 sinus tachycardia lungs as above abcomen soft, non tender legs no edema, very poor muscular mass skin no openings a/p: chf exacerbation: give more lasix, replete electrolytes, BiPAP, madrigal in place, muga scan on 06/20/2016 EF 32%. Patient is not compliant wiht her medications. Looks better after lasix, but still on respiratory distress, kee negative X3. HTN: BP improved, previously with high bp dm:sliding scale for now Prior DNR/DNI status, but she decided to be full code at this time. appropriate for palliative care consult. Past Patient History - Infectious Disease Hx of Infectious Diseases: None - Tetanus Immunizations Tetanus Immunization: Unknown - Past Medical History & Family History Past Medical History?: Yes - Past Social History Smoking Status: Never Smoked - CARDIAC Hx Atrial Fibrillation: Yes Hx Congestive Heart Failure: Yes Hx Hypercholesterolemia: Yes Hx Hypertension: Yes - PULMONARY Hx Asthma: Yes Hx Chronic Obstructive Pulmonary Disease (COPD): Yes Hx Pneumonia: Yes (08/2015) - NEUROLOGICAL Hx Dementia: Yes - HEENT Hx HEENT Problems: No - RENAL Hx Chronic Kidney Disease: No Hx Kidney Stones: No - ENDOCRINE/METABOLIC Hx Hyperthyroidism: No Hx Hypothyroidism: No - HEMATOLOGICAL/ONCOLOGICAL Hx Anemia: No Hx Human Immunodeficiency Virus (HIV): No Hx Sickle Cell Disease: No - INTEGUMENTARY Hx Dermatological Problems: No - MUSCULOSKELETAL/RHEUMATOLOGICAL Hx Arthritis: Yes Hx Falls: Yes Hx Osteoporosis: Yes Hx Rheumatoid Arthritis: Yes - GASTROINTESTINAL Hx Gall Bladder Disease: Yes - GENITOURINARY/GYNECOLOGICAL Hx Sexually Transmitted Disorders: No - PSYCHIATRIC Hx Anxiety: Yes Hx Substance Use: No - SURGICAL HISTORY Hx Cholecystectomy: Yes Hx Coronary Stent: Yes (proximal RCA stent, 2 weeks ago) - ANESTHESIA Hx Anesthesia: Yes Hx Anesthesia Reactions: No Hx Malignant Hyperthermia: No Meds Allergies/Adverse Reactions: Allergies Allergy/AdvReac Type Severity Reaction Status Date / Time moxifloxacin HCl Allergy Severe ANAPHYLAXIS Verified 07/12/16 12:48 [From Avelox] - Medications Medications: Current Medications Alprazolam (Xanax) 1 mg PO Q12H PRN PRN Reason: Anxiety Last Admin: 07/12/16 21:54 Dose: 1 mg Aspirin (Aspirin Chewable) 81 mg PO DAILY [facility] Carvedilol (Coreg) 6.25 mg PO BID [facility] Last Admin: 07/12/16 19:44 Dose: Not Given Clopidogrel Bisulfate (Plavix) 75 mg PO DAILY [facility] Dronabinol (Marinol) 2.5 mg PO BID [facility] Last Admin: 07/12/16 18:41 Dose: 2.5 mg Famotidine (Pepcid) 20 mg PO DAILY [facility] Furosemide (Lasix) 40 mg IVP STAT STA Stop: 07/13/16 05:11 Furosemide (Lasix) 60 mg IVP Q12H [facility] Heparin Sodium (Porcine) (Heparin) 5,000 units SC Q8 [facility] Last Admin: 07/12/16 21:54 Dose: 5,000 units Insulin Human Regular (Novolin R) 0 unit SC Q6H [facility] PRN Reason: Protocol Losartan Potassium (Cozaar) 25 mg PO DAILY [facility] Potassium Chloride (K-Dur 20 Meq Er Tab) 40 meq PO ONCE ONE Stop: 07/13/16 05:08 Results - Vital Signs Recent Vital Signs: Last Vital Signs Temp 98.1 F 07/13/16 00:10 Pulse 92 H 07/13/16 03:30 Resp 20 07/13/16 00:10 BP 190/110 H 07/13/16 04:05 Pulse Ox 95 07/13/16 00:10 - Labs Result Diagrams: 07/12/16 13:05 07/12/16 13:05 Labs: Laboratory Results - last 24 hr 07/12/16 07/12/16 07/13/16 15:33 18:56 03:03 POC Glucose (mg/dL) 191 H Total Creatine Kinase 29 L CK-MB (Mass) 0.38 Troponin I, Quant < 0.0120 Urine Color Yellow Urine Clarity Clear Urine pH 6.0 Ur Specific Ermine 1.019 Urine Protein Negative Urine Glucose (UA) Normal Urine Ketones Negative Urine Blood Negative Urine Nitrate Negative Urine Bilirubin Negative Urine Urobilinogen 4.0 H Ur Leukocyte Esterase Neg Urine WBC (Auto) 1 Urine RBC (Auto) 2
[2016-07-13 06:25] LABS: BASO # 0.1 K/uL (0.0-0.2); BASO % 0.6 % (0.0-2.0); EOS % 0.2 % (0.0-4.0); HEMATOCRIT 32.7 % (34.0-47.0); LYMPH # 1.1 K/uL (1.0-4.3); LYMPH % 6.4 % (20.0-40.0); MEAN CELL VOLUME 70.7 fL (81.0-99.0); MEAN CORPUSCULAR HEMOGLOBIN 22.3 pg (27.0-31.0); MEAN CORPUSCULAR HGB CONC 31.5 g/dL (33.0-37.0); MONO # 1.3 K/uL (0.0-0.8); MONO % 7.8 % (0.0-10.0); PLATELET COUNT 367 K/uL (130-400); RED CELL DISTRIBUTION WIDTH 17.9 % (11.5-14.5); WHITE BLOOD COUNT 16.4 K/uL (4.8-10.8)
[2016-07-13 07:03] LABS: POTASSIUM 3.9 mmol/L (3.6-5.2)
[2016-07-13 07:05] LABS: BILIRUBIN,TOTAL 0.9 mg/dL (0.2-1.3)
[2016-07-13 07:06] LABS: ALB/GLOB RATIO 1.3 (1.0-2.1); CALCIUM 8.7 mg/dl (8.6-10.4); TOTAL PROTEIN 7.8 g/dL (6.3-8.3)
[2016-07-13] MEDS: Albuterol-Ipratrop 3 mg / 0.5 (3 ml) UD INH SCH ×3 (07:24→19:34)
[2016-07-13 08:07] LABS: NEUTROPHIL 81 % (50-75); TOTAL CELLS COUNTED 100
--- NOTE | 2016-07-13 08:39 | RAD ---
HISTORY: Shortness of breath COMPARISON: 07/12/2016 FINDINGS: LUNGS: Worsening ill-defined consolidative changes throughout both lungs most prominent in the right mid to lower lung zone and left lung base. Biapical pleural thickening. Small bilateral pleural effusions. PLEURA: As above. CARDIOVASCULAR: Calcification at the aortic knob. OSSEOUS STRUCTURES: No significant abnormalities. VISUALIZED UPPER ABDOMEN: Normal. OTHER FINDINGS: None. IMPRESSION: Worsening ill-defined consolidative changes throughout both lungs most prominent in the right mid to lower lung zone and left lung base. Biapical pleural thickening. Small bilateral pleural effusions.
[2016-07-13 08:41] LABS: PHOSPHOROUS 4.7 mg/dL (2.5-4.5)
[2016-07-13 08:54] LABS: TROPONIN I 0.046 ng/mL (0.00-0.120)
[2016-07-13] MEDS: (Novolin R) Insulin Human Regular 100 units/ml vial SC SCH ×3 (10:02→17:16)
[2016-07-13 10:08] LABS: DRAW SITE RBA
[2016-07-13] MEDS: Cefepime IV 2 gm in Dextrose 2 GM/100 ML BAG IVPB SCH ×2 (11:28→18:33)
[2016-07-13] MEDS: Azithromycin 500 MG in Sodium Chloride 0.9% 250 ML IVPB SCH (13:03)
[2016-07-14] MEDS: Albuterol-Ipratrop 3 mg / 0.5 (3 ml) UD INH SCH ×4 (01:20→20:05)
--- NOTE | 2016-07-14 08:43 | HP ---
HISTORY OF PRESENT ILLNESS: An 81-year-old female admitted to the hospital with chief complaint of s hortness of breath, weakness, failure to thrive at home. The patient was supposed to be transferred to a nursing facility, but patient refused and patient was discharged. The patient's house condition is not optimum, no proper care at home and patient came to the ER, found to be short of breath . The patient has congestive heart failure, coronary artery disease, spinal stenosis, anxiety, COPD. PHYSICAL EXAMINATION: GENERAL: Awake, alert, oriented, short of breath at rest. VITAL SIGNS: Temperature , pulse is 90. HEENT: Within normal limits. NECK: Supple. CHEST: Symmetrical. HEART: Regular. ABDOMEN: Soft. EXTREMITIES: No edema. ASSESSMENT: The patient with congestive heart failure, pulmonary edema, coronary heart disease and a nxiety. Gisselle Vogel MD cc: [phone] TT: 07/13/2016 12:08:28 bobo
--- NOTE | 2016-07-14 15:06 | CARD ---
APPROVED REPORT EKG Measurement Heart [id number] <Conclusion> Atrial fibrillation with premature ventricular or aberrantly conducted complexes Left axis deviation Inferior infarct, age undetermined Anterior infarct, age undetermined ST & T wave abnormality, consider lateral ischemia Abnormal ECG
[2016-07-14 22:53] LABS: BASO # 0.1 K/uL (0.0-0.2); EOS # 0.3 K/uL (0.0-0.7); EOS % 3.9 % (0.0-4.0); HEMATOCRIT 26.6 % (34.0-47.0); LYMPH # 1.3 K/uL (1.0-4.3); LYMPH % 18.1 % (20.0-40.0); MEAN CELL VOLUME 71.6 fL (81.0-99.0); MEAN CORPUSCULAR HEMOGLOBIN 22.6 pg (27.0-31.0); MEAN CORPUSCULAR HGB CONC 31.6 g/dL (33.0-37.0); MEAN PLATELET VOLUME 10.1 fL (7.2-11.7); MONO # 0.7 K/uL (0.0-0.8); RED CELL DISTRIBUTION WIDTH 17.4 % (11.5-14.5); WHITE BLOOD COUNT 7.3 K/uL (4.8-10.8)
[2016-07-14] MEDS: (Novolin R) Insulin Human Regular 100 units/ml vial SC SCH (23:15)
[2016-07-14 23:48] LABS: ALKALINE PHOSPHATASE 70 U/L (38-126); ALT/SGPT 17 U/L (9-52); AST/SGOT 23 U/L (14-36); BLOOD UREA NITROGEN 15 mg/dL (7-17); CALCIUM 8.5 mg/dl (8.6-10.4); CARBON DIOXIDE 20 mmol/L (22-30); CHLORIDE 101 mmol/L (98-107); GFR AFRICAN-AMERICAN > 60; GLUCOSE,RANDOM 92 mg/dL (65-105); SODIUM 132 mmol/L (132-148); TOTAL PROTEIN 6.6 g/dL (6.3-8.3)
[2016-07-15] MEDS: Albuterol-Ipratrop 3 mg / 0.5 (3 ml) UD INH SCH (01:12)
[2016-07-15] MEDS: Cefepime IV 2 gm in Dextrose 2 GM/100 ML BAG IVPB SCH ×3 (03:00→18:39)
[2016-07-15] MEDS: (Novolin R) Insulin Human Regular 100 units/ml vial SC SCH ×4 (05:15→23:15)
[2016-07-15 06:22] LABS: CHLORIDE 103 mmol/L (98-107); SODIUM 134 mmol/L (132-148)
[2016-07-15 06:24] LABS: BILIRUBIN,TOTAL 0.8 mg/dL (0.2-1.3); GFR AFRICAN-AMERICAN > 60
[2016-07-15 06:25] LABS: ALB/GLOB RATIO 1.1 (1.0-2.1); ALKALINE PHOSPHATASE 65 U/L (38-126); ALT/SGPT 12 U/L (9-52); AST/SGOT 15 U/L (14-36); BLOOD UREA NITROGEN 13 mg/dL (7-17); CARBON DIOXIDE 20 mmol/L (22-30); GLUCOSE,RANDOM 104 mg/dL (65-105); PHOSPHOROUS 2.9 mg/dL (2.5-4.5); TOTAL PROTEIN 6.5 g/dL (6.3-8.3)
[2016-07-15 06:26] LABS: CALCIUM 8.3 mg/dl (8.6-10.4); MAGNESIUM 1.8 mg/dL (1.6-2.3)
[2016-07-15 06:29] LABS: BASO # 0.1 K/uL (0.0-0.2); BASO % 0.9 % (0.0-2.0); EOS # 0.4 K/uL (0.0-0.7); EOS % 6.7 % (0.0-4.0); LYMPH # 1.9 K/uL (1.0-4.3); LYMPH % 28.5 % (20.0-40.0); MEAN CORPUSCULAR HGB CONC 32.3 g/dL (33.0-37.0); MEAN PLATELET VOLUME 9.9 fL (7.2-11.7); MONO # 0.9 K/uL (0.0-0.8); MONO % 13.4 % (0.0-10.0); RED CELL DISTRIBUTION WIDTH 17.6 % (11.5-14.5); WHITE BLOOD COUNT 6.6 K/uL (4.8-10.8)
--- NOTE | 2016-07-15 09:10 | CP.PCM.PN ---
Subjective - Date & Time of Evaluation Date of Evaluation: 07/15/16 Time of Evaluation: 07:00 - Subjective Subjective: Medicine Note- Dr. Beck's service Patient was seen and examined at bedside. Patient reports she does not feel well , but is unable to elaborate what specifically is wrong. Patient appears comfortable in bed, in no acute distress. No events overnight, per nursing. Objective - Vital Signs/Intake and Output Vital Signs (last 24 hours): Temp Pulse Resp BP Pulse Ox 97.8 F 56 L 20 97/62 L 98 07/15/16 08:34 07/15/16 08:34 07/15/16 08:34 07/15/16 08:34 07/15/16 08:34 Intake and Output: 07/15/16 07/15/16 06:59 18:59 Intake Total 350 Output Total 0 Balance 350 - Medications Medications: Current Medications Acetaminophen (Tylenol 325mg Tab) 650 mg PO Q6H PRN PRN Reason: Headache Albuterol/Ipratropium (Duoneb 3 Mg/0.5 Mg (3 Ml) Ud) 3 ml INH RQ6 [facility] Last Admin: 07/15/16 01:12 Dose: Not Given Alprazolam (Xanax) 1 mg PO Q12H PRN PRN Reason: Anxiety Last Admin: 07/15/16 06:46 Dose: 1 mg Aspirin (Aspirin Chewable) 81 mg PO DAILY [facility] Last Admin: 07/13/16 10:15 Dose: 81 mg Carvedilol (Coreg) 6.25 mg PO BID [facility] Last Admin: 07/13/16 17:03 Dose: Not Given Clopidogrel Bisulfate (Plavix) 75 mg PO DAILY [facility] Last Admin: 07/13/16 10:15 Dose: 75 mg Dronabinol (Marinol) 2.5 mg PO BID [facility] Last Admin: 07/13/16 18:33 Dose: 2.5 mg Famotidine (Pepcid) 20 mg PO DAILY [facility] Last Admin: 07/13/16 10:15 Dose: 20 mg Furosemide (Lasix) 60 mg IVP Q12H [facility] Last Admin: 07/15/16 05:28 Dose: Not Given Heparin Sodium (Porcine) (Heparin) 5,000 units SC Q8 [facility] Last Admin: 07/15/16 05:29 Dose: 5,000 units Azithromycin 500 mg/ Sodium (Chloride) 250 mls @ 250 mls/hr IVPB DAILY [facility] Last Admin: 07/13/16 13:03 Dose: 250 mls/hr Cefepime HCl (Maxipime Iv 2 Gm Premix) 2 gm in 100 mls @ 200 mls/hr IVPB Q8H [facility] Stop: 07/18/16 11:01 Last Admin: 07/15/16 03:00 Dose: 200 mls/hr Insulin Human Regular (Novolin R) 0 unit SC Q6H [facility] PRN Reason: Protocol Last Admin: 07/15/16 05:15 Dose: Not Given Losartan Potassium (Cozaar) 25 mg PO DAILY [facility] Last Admin: 07/13/16 10:00 Dose: Not Given - Labs Labs: 07/15/16 06:04 07/15/16 06:04 PT 13.6 SECONDS (9.7-12.2) H 07/12/16 13:05 INR 1.2 07/12/16 13:05 APTT 27 SECONDS (21-34) 07/12/16 13:05 - Constitutional Appears: Non-toxic, No Acute Distress, Cachectic - Head Exam Head Exam: ATRAUMATIC, NORMAL INSPECTION, NORMOCEPHALIC - Eye Exam Eye Exam: EOMI, Normal appearance Pupil Exam: NORMAL ACCOMODATION, PERRL - ENT Exam ENT Exam: Mucous Membranes Moist, Normal Exam - Neck Exam Neck Exam: Normal Inspection - Respiratory Exam Respiratory Exam: Clear to Ausculation Bilateral, NORMAL BREATHING PATTERN. absent: Prolonged Expiratory Phase, Rales, Rhonchi, Wheezes - Cardiovascular Exam Cardiovascular Exam: REGULAR RHYTHM, +S1, +S2 - GI/Abdominal Exam GI & Abdominal Exam: Soft, Normal Bowel Sounds. absent: Guarding, Rigid, Tenderness, Diminished Bowel Sounds, Hypoactive Bowel Sounds - Extremities Exam Extremities Exam: Normal Capillary Refill, Normal Inspection - Neurological Exam Neurological Exam: Alert, Awake, Oriented x3 - Psychiatric Exam Psychiatric exam: Normal Affect, Normal Mood - Skin Skin Exam: Dry, Intact, Normal Color, Warm Assessment and Plan - Assessment and Plan (Free Text) Assessment: Acute on Chronic systolic heart failure Echo- 06/25/16- Systolic function is mildly impaired, EF- 40-45%. Akinesis and thinning of basal and mid inferior wall and septal wall segments (both anterior and inferior)indicative of prior [place]. LA moderately dilated. RA mildly dilated. AV moderately sclerotic. Mod tricuspid regurg (please see full report) Patient was seen by Dr Kelley on previous visit. He recommended conservative treatment due to patient's DNR/DNI status at the time. However, the patient wishes to be full code on this visit and is still unsure about finalizing this decision. Dr Cedeño (PGY2) discussed code status in depth with patient and family (daughter, nephew, niece) at bedside on 07/04/16. At this time, patient wishes to be remain full code, she says she will decide later if she to be DNR/DNI. Per Dr. Gustafson on last visit, patient is not a candidate for ICD at this time. Patient has indicated that she does not want an ICD. Risks of her low EF and not receiving an ICD was explained in detail to her, she still refuses. Cardiology team signed off. MUGA scan- 06/20/16- EF 32% CXR 07/13/16- Worsening ill-defined consolidative changes throughout both lungs most prominent in the right mid to lower lung zone and left lung base. Biapical pleural thickening. Small bilateral pleural effusions. CXR 07/12/16- Cardiomegaly- Scattered probable calcified granulomas NEO negative x 3 BNP- 1730 Continue Coreg 6.25mg PO BID Continue Plavix 75mg PO Daily Continue Lasix 60mg IVP Q12h Continue Losartan 25mg PO Daily Continue Asa 81mg PO Daily Abnormal CXR Currently on Cefepime 2gm IVPB Q8h and Azithromycin 500mg IVPB Daily Anemia Currently 8.4 f/u stool occult, iron panel, B12/folate Hypotension Continue to monitor. Prophylactic Measure Heparin 5000U SC Q12h SCDs Protonix 40mg PO Daily All medical management as per Dr. Beck. Patient will remain full code for now. Patient wishes to discuss with daughter at later time . Pastoral referral placed for patient's well being DC Planning
[2016-07-15 09:31] LABS: MAGNESIUM 1.7 mg/dL (1.6-2.3); PHOSPHOROUS 2.9 mg/dL (2.5-4.5)
[2016-07-15] MEDS: Azithromycin 500 MG in Sodium Chloride 0.9% 250 ML IVPB SCH (10:33)
--- NOTE | 2016-07-15 12:02 | CP.PCM.CON ---
History of Present Illness - History of Present Illness History of Present Illness: Palliative consult Requested by Tae NGUYEN Reason: Goals of care Patient is a 81 yo lady with multiple readmissions to this hospital for the respiratory symptoms. Patient was supported by MV X 2 in near past. On this admission CXR was significant for worsening consolidation and small pleura effusion. Patient was started on Primaxin and Zitromax IV. PMH: A fib, HTN, DM, COPD, CHF, RA, coronary stents about 2 weeks ago Soc. Hx: Lives at home with daughter Bridgette, , older daughter Juju very involved in care, as per report patient was planned for LTC due to not optimal housing conditions, but she refused Fam Hx: Unknown Review of Systems - Constitutional Constitutional: Malaise - EENT Eyes: absent: As Per HPI, Blind Spots, Blurred Vision, Change in Vision, Decreased Night Vision, Diplopia, Discharge, Dry Eye, Exophthalmos, Floaters, Irritation, Itchy Eyes, Loss of Peripheral Vision, Pain, Photophobia, Requires Corrective Lenses, Sees Flashes, Spots in Vision, Tunnel Vision, Other Visual Disturbances, Loss of Vision, Other Ears: absent: As Per HPI, Decreased Hearing, Ear Discharge, Ear Pain, Tinnitus, Abnormal Hearing, Disequilibrium, Dizziness, Other Nose/Mouth/Throat: absent: As Per HPI, Epistaxis, Nasal Congestion, Nasal Discharge, Nasal Obstruction, Nasal Trauma, Nose Pain, Post Nasal Drip, Sinus Pain, Sinus Pressure, Bleeding Gums, Change in Voice, Dental Pain, Dry Mouth, Dysphagia, Halitosis, Hoarsness, Lip Swelling, Mouth Lesions, Mouth Pain, Odynophagia, Sore Throat, Throat Swelling, Tongue Swelling, Facial Pain, Neck Pain, Neck Mass, Other - Breasts Breasts: absent: As Per HPI, Change in Shape, Mass, Pain, Nipple Discharge, Nipple Inversion, Skin Changes, Swelling, Other - Cardiovascular Cardiovascular: absent: As Per HPI, Acrocyanosis, Chest Pain, Chest Pain at Rest , Chest Pain with Activity, Claudication, Diaphoresis, Dyspnea, Dyspnea on Exertion, Edema, Irregular Heart Rhythm, Pain Radiating to Arm/Neck/Jaw, Leg Edema, Leg Ulcers, Lightheadedness, Orthopnea, Palpitations, Paroxysmal Nocturnal Dyspnea, Pedal Edema, Radiating Pain, Rapid Heart Rate, Slow Heart Rate, Syncope, Other - Respiratory Respiratory: Dyspnea, Chest Congestion - Gastrointestinal Gastrointestinal: absent: As Per HPI, Abdominal Pain, Belching, Bloating, Change in Bowel Habits, Change in Stool Character, Coffee Ground Emesis, Constipation, Cramping, Diarrhea, Dyspepsia, Dysphagia, Early Satiety, Excessive Flatus, Fecal Incontinence, Heartburn, Hematemesis, Hematochezia, Loose Stools, Melena, Nausea, Odynophagia, Temesmus, Vomiting, Other - Genitourinary Genitourinary: absent: As Per HPI, Change in Urinary Stream, Difficulty Urinating, Dysuria, Flank Pain, Hematuria, Pyuria, Nocturia, Urinary Incontinence, Urinary Frequency, Urinary Hesitance, Urinary Urgency, Voiding Freq/Small Amts, Freq UTI, Hx Renal/Bladder Calculi, Hx /Renal Surgery, Bladder Distension, Other - Reproductive: Female Reproductive:Female: Post Menopausal - Menstruation Menstruation: Post Menopausal - Musculoskeletal Musculoskeletal: Myalgias - Integumentary Integumentary: absent: As Per HPI, Acne, Alopecia, Bleeding Lesions, Change in Hair, Change in Nails, Change in Pigmentation, Changing Lesions, Dry Skin, Erythema, Furuncle, Hirsutism, Lesions, New Lesions, Non-Healing Lesions, Photosensitivity, Pruritus, Rash, Skin Pain, Skin Ulcer, Sores, Striae, Swelling , Unusual Bruising, Wounds, Jaundice, Other - Neurological Neurological: Weakness - Psychiatric Psychiatric: Anxiety - Endocrine Endocrine: absent: As Per HPI, Change in Body Appearance, Change in Libido, Cold Intolorance, Deepening of Voice, Excessive Sweating, Fatigue, Flushing, Heat Intolorance, Increase in Ring/Shoe/Hat Size, Palpitations, Polydipsia, Polyphagia, Polyuria, Other - Hematologic/Lymphatic Hematologic: absent: As Per HPI, Easy Bleeding, Easy Bruising, Lymphadenopathy, Other Past Patient History - Infectious Disease Hx of Infectious Diseases: None - Tetanus Immunizations Tetanus Immunization: Unknown - Past Medical History & Family History Past Medical History?: Yes - Past Social History Smoking Status: Never Smoked - CARDIAC Hx Atrial Fibrillation: Yes Hx Congestive Heart Failure: Yes Hx Hypercholesterolemia: Yes Hx Hypertension: Yes - PULMONARY Hx Asthma: Yes Hx Chronic Obstructive Pulmonary Disease (COPD): Yes Hx Pneumonia: Yes (08/2015) - NEUROLOGICAL Hx Dementia: Yes - HEENT Hx HEENT Problems: No - RENAL Hx Chronic Kidney Disease: No Hx Kidney Stones: No - ENDOCRINE/METABOLIC Hx Hyperthyroidism: No Hx Hypothyroidism: No - HEMATOLOGICAL/ONCOLOGICAL Hx Anemia: No Hx Human Immunodeficiency Virus (HIV): No Hx Sickle Cell Disease: No - INTEGUMENTARY Hx Dermatological Problems: No - MUSCULOSKELETAL/RHEUMATOLOGICAL Hx Arthritis: Yes Hx Falls: Yes Hx Osteoporosis: Yes Hx Rheumatoid Arthritis: Yes - GASTROINTESTINAL Hx Gall Bladder Disease: Yes - GENITOURINARY/GYNECOLOGICAL Hx Sexually Transmitted Disorders: No - PSYCHIATRIC Hx Anxiety: Yes Hx Substance Use: No - SURGICAL HISTORY Hx Cholecystectomy: Yes Hx Coronary Stent: Yes (proximal RCA stent, 2 weeks ago) - ANESTHESIA Hx Anesthesia: Yes Hx Anesthesia Reactions: No Hx Malignant Hyperthermia: No Meds Allergies/Adverse Reactions: Allergies Allergy/AdvReac Type Severity Reaction Status Date / Time moxifloxacin HCl Allergy Severe ANAPHYLAXIS Verified 07/12/16 12:48 [From Avelox] - Medications Medications: Current Medications Acetaminophen (Tylenol 325mg Tab) 650 mg PO Q6H PRN PRN Reason: Headache Albuterol/Ipratropium (Duoneb 3 Mg/0.5 Mg (3 Ml) Ud) 3 ml INH RQ6 [facility] Last Admin: 07/15/16 01:12 Dose: Not Given Alprazolam (Xanax) 1 mg PO Q12H PRN PRN Reason: Anxiety Last Admin: 07/15/16 06:46 Dose: 1 mg Aspirin (Aspirin Chewable) 81 mg PO DAILY [facility] Last Admin: 07/15/16 10:32 Dose: 81 mg Carvedilol (Coreg) 6.25 mg PO BID [facility] Last Admin: 07/15/16 10:38 Dose: Not Given Clopidogrel Bisulfate (Plavix) 75 mg PO DAILY [facility] Last Admin: 07/15/16 10:32 Dose: 75 mg Dronabinol (Marinol) 2.5 mg PO BID [facility] Last Admin: 07/15/16 10:43 Dose: 2.5 mg Famotidine (Pepcid) 20 mg PO DAILY [facility] Last Admin: 07/15/16 10:32 Dose: 20 mg Furosemide (Lasix) 60 mg IVP Q12H [facility] Last Admin: 07/15/16 05:28 Dose: Not Given Heparin Sodium (Porcine) (Heparin) 5,000 units SC Q8 [facility] Last Admin: 07/15/16 05:29 Dose: 5,000 units Azithromycin 500 mg/ Sodium (Chloride) 250 mls @ 250 mls/hr IVPB DAILY [facility] Last Admin: 07/15/16 10:33 Dose: 250 mls/hr Cefepime HCl (Maxipime Iv 2 Gm Premix) 2 gm in 100 mls @ 200 mls/hr IVPB Q8H [facility] Stop: 07/18/16 11:01 Last Admin: 07/15/16 11:51 Dose: 200 mls/hr Insulin Human Regular (Novolin R) 0 unit SC Q6H [facility] PRN Reason: Protocol Last Admin: 07/15/16 05:15 Dose: Not Given Losartan Potassium (Cozaar) 25 mg PO DAILY [facility] Last Admin: 07/15/16 10:39 Dose: Not Given Physical Exam - Constitutional Appears: Chronically Ill - Head Exam Head Exam: ATRAUMATIC, NORMAL INSPECTION, NORMOCEPHALIC - Eye Exam Eye Exam: EOMI, Normal appearance, PERRL Pupil Exam: NORMAL ACCOMODATION, PERRL - ENT Exam ENT Exam: Mucous Membranes Moist, Normal Exam - Neck Exam Neck exam: Positive for: Normal Inspection - Respiratory Exam Respiratory Exam: Decreased Breath Sounds, NORMAL BREATHING PATTERN - Cardiovascular Exam Cardiovascular Exam: REGULAR RHYTHM, +S1, +S2 - GI/Abdominal Exam GI & Abdominal Exam: Normal Bowel Sounds, Soft - Rectal Exam Rectal Exam: Deferred - Extremities Exam Extremities exam: Positive for: normal inspection - Back Exam Back exam: NORMAL INSPECTION - Neurological Exam Neurological exam: Alert, Oriented x3 - Psychiatric Exam Psychiatric exam: Anxious - Skin Skin Exam: Normal Color Results - Vital Signs Recent Vital Signs: Last Vital Signs Temp 97.8 F 07/15/16 08:34 Pulse 56 L 07/15/16 08:34 Resp 20 07/15/16 08:34 BP 97/62 L 07/15/16 08:34 Pulse Ox 98 07/15/16 08:34 - Labs Result Diagrams: 07/15/16 06:04 07/15/16 06:04 Labs: Laboratory Results - last 24 hr 07/14/16 07/14/16 07/14/16 06:00 06:00 06:00 WBC 7.3 D RBC 3.71 L Hgb 8.4 L Hct 26.6 L MCV 71.6 L MCH 22.6 L MCHC 31.6 L RDW 17.4 H Plt Count 280 MPV 10.1 Neut % (Auto) 68.0 Lymph % (Auto) 18.1 L [place] % (Auto) 9.0 Eos % (Auto) 3.9 Baso % (Auto) 1.0 Neut # 5.0 Lymph # 1.3 [place] # 0.7 Eos # 0.3 Baso # 0.1 Sodium 132 Potassium 4.0 Chloride 101 Carbon Dioxide 20 L Anion Gap 15 BUN 15 Creatinine 0.8 Est GFR ( Amer) > 60 Est GFR (Non-Af Amer) > 60 POC Glucose (mg/dL) Random Glucose 92 Calcium 8.5 L Phosphorus 2.9 Magnesium 1.7 Total Bilirubin 1.0 AST 23 ALT 17 Alkaline Phosphatase 70 Total Protein 6.6 Albumin 3.3 L D Globulin 3.3 Albumin/Globulin Ratio 1.0 07/14/16 07/14/16 07/14/16 11:31 16:11 20:59 WBC RBC Hgb Hct MCV MCH MCHC RDW Plt Count MPV Neut % (Auto) Lymph % (Auto) [place] % (Auto) Eos % (Auto) Baso % (Auto) Neut # Lymph # [place] # Eos # Baso # Sodium Potassium Chloride Carbon Dioxide Anion Gap BUN Creatinine Est GFR ( Amer) Est GFR (Non-Af Amer) POC Glucose (mg/dL) 89 100 104 Random Glucose Calcium Phosphorus Magnesium Total Bilirubin AST ALT Alkaline Phosphatase Total Protein Albumin Globulin Albumin/Globulin Ratio 07/15/16 07/15/16 06:04 06:04 WBC 6.6 RBC 3.66 L Hgb 8.4 L Hct 26.0 L MCV 71.0 L MCH 23.0 L MCHC 32.3 L RDW 17.6 H Plt Count 270 MPV 9.9 Neut % (Auto) 50.5 Lymph % (Auto) 28.5 [place] % (Auto) 13.4 H Eos % (Auto) 6.7 H Baso % (Auto) 0.9 Neut # 3.3 Lymph # 1.9 [place] # 0.9 H Eos # 0.4 Baso # 0.1 Sodium 134 Potassium 4.0 Chloride 103 Carbon Dioxide 20 L Anion Gap 15 BUN 13 Creatinine 0.7 Est GFR ( Amer) > 60 Est GFR (Non-Af Amer) > 60 POC Glucose (mg/dL) Random Glucose 104 Calcium 8.3 L Phosphorus 2.9 Magnesium 1.8 Total Bilirubin 0.8 AST 15 ALT 12 Alkaline Phosphatase 65 Total Protein 6.5 Albumin 3.5 Globulin 3.1 Albumin/Globulin Ratio 1.1 Assessment & Plan - Assessment and Plan (Free Text) Assessment: palliative consult Code status, Full Code, no advance directive on chart, PPS 30% I reviewed medical records, all diagnostic studies, examined and interviewed patient in the bed and discussed goals of care with patient and her daughter Juju. Patient is alert, oriented X 3 in no acute distress, looking chonically ill. Skin is dry. Breath sounds diminished, no cough. Affect is anxious. patient repeated several times:" I do not want to live! I miss my father and mother". When asked why she did not want to live , patient had no answer. Patient denied suicidal ideation. I reassured her of her safety. BP 97/62, HR 56, O2 Sat 98 % NC. Patient takes lasix 60 mg BID, Coreg and Cozzar Further I discussed goals of care with patient including her experience with MV support on last two admissions. I also reassured patient that she was not in any immediate danger of respiratory distress and we had to plan ahead in case it happens. Patient was very clear that she would not want to be intubated nor resuscitated. Patient called the life support measures " no life", and suggested she would not want to be kept alive in that way. The discharge was discussed with patient as well and I asked if the assisted placement was beneficial for her would she agreed to go there and she confirmed yes. I called patient's daughter Juju and discussed her mother's wishes. Juju agreed , the same way she did on last admission and was very supportive of her mother's decision. Impression * Chronically ill patient with multiple readmission for symptoms of respiratory distress * Patient is anxious and states wanted to and meet her parents * Hypotension * patient is with Hx of Mv X 2 and does not want the same level f care if it becomes a need * Patient would want to be allowed natural when her time comes * Patient's daughter Juju supportive of patient's wishes Suggestion * Monitor BP * Would consider psych eval re: wishes to * Palliative care will return to patient for POLST to be completed * Agree with DNR/DNI * Would plan discharge to [place] as patient agreed this time The consult will be updated once the POLST completed. Thank you for including me in care of this patient.
[2016-07-16] MEDS: Cefepime IV 2 gm in Dextrose 2 GM/100 ML BAG IVPB SCH (02:44)
[2016-07-16] MEDS: (Novolin R) Insulin Human Regular 100 units/ml vial SC SCH ×4 (05:11→22:43)
[2016-07-16 06:24] LABS: BASO # 0.2 K/uL (0.0-0.2); EOS # 0.5 K/uL (0.0-0.7); EOS % 6.8 % (0.0-4.0); HEMATOCRIT 29.8 % (34.0-47.0); LYMPH # 2.4 K/uL (1.0-4.3); LYMPH % 29.9 % (20.0-40.0); MEAN CELL VOLUME 70.5 fL (81.0-99.0); MEAN CORPUSCULAR HEMOGLOBIN 22.7 pg (27.0-31.0); MEAN CORPUSCULAR HGB CONC 32.2 g/dL (33.0-37.0); MEAN PLATELET VOLUME 9.7 fL (7.2-11.7); MONO % 13.3 % (0.0-10.0); NRBC % 0.1 % (0.0-2.0); WHITE BLOOD COUNT 7.9 K/uL (4.8-10.8)
[2016-07-16 06:34] LABS: CHLORIDE 99 mmol/L (98-107); POTASSIUM 3.8 mmol/L (3.6-5.2); SODIUM 138 mmol/L (132-148)
[2016-07-16 06:36] LABS: BILIRUBIN,TOTAL 0.8 mg/dL (0.2-1.3); GFR AFRICAN-AMERICAN > 60
[2016-07-16 06:37] LABS: ALB/GLOB RATIO 1.1 (1.0-2.1); ALKALINE PHOSPHATASE 78 U/L (38-126); AST/SGOT 19 U/L (14-36); BLOOD UREA NITROGEN 12 mg/dL (7-17); CALCIUM 9.2 mg/dl (8.6-10.4); CARBON DIOXIDE 25 mmol/L (22-30); GLUCOSE,RANDOM 91 mg/dL (65-105); TOTAL PROTEIN 7.9 g/dL (6.3-8.3)
[2016-07-16] MEDS: Albuterol-Ipratrop 3 mg / 0.5 (3 ml) UD INH SCH ×4 (06:38→20:07)
[2016-07-16 06:41] LABS: ALT/SGPT < 6 U/L (9-52)
[2016-07-16 07:41] LABS: FOLATE 12.1 ng/mL
[2016-07-16] MEDS: Azithromycin 500 MG in Sodium Chloride 0.9% 250 ML IVPB SCH (09:43)
[2016-07-16 09:53] LABS: IRON 28 ug/dL (37-170)
[2016-07-17] MEDS: Albuterol-Ipratrop 3 mg / 0.5 (3 ml) UD INH SCH ×4 (01:23→19:57)
[2016-07-17] MEDS: (Novolin R) Insulin Human Regular 100 units/ml vial SC SCH ×4 (05:09→22:39)
[2016-07-17 08:25] LABS: BASO # 0.1 K/uL (0.0-0.2); BASO % 1.4 % (0.0-2.0); EOS # 0.4 K/uL (0.0-0.7); EOS % 5.9 % (0.0-4.0); HEMATOCRIT 28.9 % (34.0-47.0); LYMPH # 2.4 K/uL (1.0-4.3); MEAN CORPUSCULAR HEMOGLOBIN 22.3 pg (27.0-31.0); MEAN CORPUSCULAR HGB CONC 31.8 g/dL (33.0-37.0); MONO # 0.9 K/uL (0.0-0.8); MONO % 12.2 % (0.0-10.0); RED CELL DISTRIBUTION WIDTH 18.3 % (11.5-14.5); WHITE BLOOD COUNT 7.3 K/uL (4.8-10.8)
[2016-07-17 08:52] LABS: CHLORIDE 99 mmol/L (98-107); POTASSIUM 4.1 mmol/L (3.6-5.2); SODIUM 137 mmol/L (132-148)
[2016-07-17 08:54] LABS: GFR AFRICAN-AMERICAN > 60
[2016-07-17 08:55] LABS: ALB/GLOB RATIO 1.2 (1.0-2.1); ALKALINE PHOSPHATASE 76 U/L (38-126); ALT/SGPT 13 U/L (9-52); AST/SGOT 20 U/L (14-36); BILIRUBIN,TOTAL 0.7 mg/dL (0.2-1.3); BLOOD UREA NITROGEN 16 mg/dL (7-17); CALCIUM 8.9 mg/dl (8.6-10.4); CARBON DIOXIDE 25 mmol/L (22-30); GLUCOSE,RANDOM 86 mg/dL (65-105); TOTAL PROTEIN 7.5 g/dL (6.3-8.3)
[2016-07-17] MEDS: Promethazine 6.25 MG/5 ML CUP PO SCH (17:31)
--- NOTE | 2016-07-17 18:16 | CARD ---
APPROVED REPORT EKG Measurement Heart [id number] <Conclusion> Sinus rhythm with premature atrial complexes Left axis deviation Inferior infarct, age undetermined Anterior infarct, age undetermined Abnormal ECG
[2016-07-18] MEDS: Promethazine 6.25 MG/5 ML CUP PO SCH ×4 (00:30→18:00)
[2016-07-18] MEDS: Albuterol-Ipratrop 3 mg / 0.5 (3 ml) UD INH SCH ×2 (01:30→09:05)
[2016-07-18 01:35] VITALS: RESP 20
[2016-07-18] MEDS: (Novolin R) Insulin Human Regular 100 units/ml vial SC SCH ×4 (05:21→23:35)
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
[2016-07-19] MEDS: Promethazine 6.25 MG/5 ML CUP PO SCH ×3 (01:12→12:22)
[2016-07-19 02:22] VITALS: O2SAT 100
[2016-07-19] MEDS: (Novolin R) Insulin Human Regular 100 units/ml vial SC SCH (05:08)
--- NOTE | 2016-07-19 08:57 | CP.PCM.PN ---
Subjective - Date & Time of Evaluation Date of Evaluation: 07/19/16 Time of Evaluation: 07:30 - Subjective Subjective: Medicine Note- Dr. Beck's service Patient was seen and examined at bedside. Patient reported no acute complaints at this time. No events overnight, per nursing. Objective - Vital Signs/Intake and Output Vital Signs (last 24 hours): Temp Pulse Resp BP Pulse Ox 98.1 F 58 L 20 109/72 100 07/19/16 07:57 07/19/16 07:57 07/19/16 07:57 07/19/16 07:57 07/19/16 07:57 - Medications Medications: Current Medications Acetaminophen (Tylenol 325mg Tab) 650 mg PO Q6H PRN PRN Reason: Headache Last Admin: 07/18/16 09:11 Dose: 650 mg Alprazolam (Xanax) 1 mg PO Q12H PRN PRN Reason: Anxiety Last Admin: 07/18/16 14:44 Dose: 1 mg Aspirin (Aspirin Chewable) 81 mg PO DAILY [facility] Last Admin: 07/18/16 09:10 Dose: 81 mg Carvedilol (Coreg) 6.25 mg PO BID [facility] Last Admin: 07/18/16 22:09 Dose: 6.25 mg Clopidogrel Bisulfate (Plavix) 75 mg PO DAILY [facility] Last Admin: 07/18/16 09:11 Dose: 75 mg Dronabinol (Marinol) 2.5 mg PO BID [facility] Last Admin: 07/18/16 17:57 Dose: 2.5 mg Famotidine (Pepcid) 20 mg PO DAILY [facility] Last Admin: 07/18/16 09:10 Dose: 20 mg Ferrous Sulfate (Feosol) 325 mg PO DAILY [facility] Last Admin: 07/18/16 14:44 Dose: 325 mg Furosemide (Lasix) 60 mg IVP Q12H [facility] Last Admin: 07/19/16 05:00 Dose: 60 mg Insulin Human Regular (Novolin R) 0 unit SC Q6H [facility] PRN Reason: Protocol Last Admin: 07/19/16 05:08 Dose: Not Given Losartan Potassium (Cozaar) 25 mg PO DAILY [facility] Last Admin: 07/18/16 12:11 Dose: Not Given Promethazine HCl (Phenergan Syrup) 6.25 mg PO Q6 [facility] Last Admin: 07/19/16 05:15 Dose: 6.25 mg - Labs Labs: 07/17/16 08:12 07/17/16 08:12 PT 13.6 SECONDS (9.7-12.2) H 07/12/16 13:05 INR 1.2 07/12/16 13:05 APTT 27 SECONDS (21-34) 07/12/16 13:05 - Constitutional Appears: Non-toxic, No Acute Distress - Head Exam Head Exam: ATRAUMATIC, NORMAL INSPECTION, NORMOCEPHALIC - Eye Exam Pupil Exam: NORMAL ACCOMODATION, PERRL - ENT Exam ENT Exam: Mucous Membranes Moist - Respiratory Exam Respiratory Exam: Clear to Ausculation Bilateral, NORMAL BREATHING PATTERN. absent: Prolonged Expiratory Phase, Rales, Rhonchi, Wheezes - Cardiovascular Exam Cardiovascular Exam: REGULAR RHYTHM, +S1, +S2 - GI/Abdominal Exam GI & Abdominal Exam: Soft, Normal Bowel Sounds. absent: Tenderness, Diminished Bowel Sounds, Hernia, Hypoactive Bowel Sounds - Extremities Exam Extremities Exam: Normal Capillary Refill, Normal Inspection - Neurological Exam Neurological Exam: Alert, Awake, Oriented x3 - Psychiatric Exam Psychiatric exam: Normal Affect, Normal Mood - Skin Skin Exam: Dry, Intact, Normal Color, Warm Assessment and Plan - Assessment and Plan (Free Text) Assessment: Acute on Chronic systolic heart failure Echo- 06/25/16- Systolic function is mildly impaired, EF- 40-45%. Akinesis and thinning of basal and mid inferior wall and septal wall segments (both anterior and inferior)indicative of prior TX. LA moderately dilated. RA mildly dilated. AV moderately sclerotic. Mod tricuspid regurg (please see full report) Patient was seen by Dr Kelley on previous visit. He recommended conservative treatment due to patient's DNR/DNI status at the time. However, the patient wishes to be full code on this visit and is still unsure about finalizing this decision. Dr Cedeño ([id number]) discussed code status in depth with patient and family (daughter, nephew, niece) at bedside on 07/04/16. At this time, patient wishes to be remain full code, she says she will decide later if she to be DNR/DNI. Per Dr. Gustafson on last visit, patient is not a candidate for ICD at this time. Patient has indicated that she does not want an ICD. Risks of her low EF and not receiving an ICD was explained in detail to her, she still refuses. Cardiology team signed off. MUGA scan- 06/20/16- EF 32% CXR 07/13/16- Worsening ill-defined consolidative changes throughout both lungs most prominent in the right mid to lower lung zone and left lung base. Biapical pleural thickening. Small bilateral pleural effusions. CXR 07/12/16- Cardiomegaly- Scattered probable calcified granulomas NEO negative x 3 BNP- 1730 Continue Coreg 6.25mg PO BID Continue Plavix 75mg PO Daily Continue Lasix 60mg IVP Q12h Continue Losartan 25mg PO Daily Continue Asa 81mg PO Daily Abnormal CXR Currently on Cefepime 2gm IVPB Q8h and Azithromycin 500mg IVPB Daily Anemia Currently 8.4 f/u stool occult, iron panel, B12/folate Hypotension Continue to monitor. Prophylactic Measure Heparin 5000U SC Q12h SCDs Protonix 40mg PO Daily All medical management as per Dr. Beck. Patient will remain full code for now. Patient wishes to discuss with daughter at later time . Pastoral referral placed for patient's well being DC Planning- awaiting authorization.
[2016-07-19] MEDS ORDERED: (Novolin R) Insulin Human Regular 100 units/ml vial SC SCH (11:45)
[2016-07-19 16:06] VITALS: BP 99/60; PULSE 55; TEMP 97
--- NOTE | 2016-07-19 18:34 | PCM.HF ---
Heart Failure Core Measure - Heart Failure Ejection Fraction: 40 % or Greater (lvef 52%) KANDIS Inhibitor Prescribed: No Contraindication/Reason for not providing: on arb Beta-Wesley Prescribed: Carvedilol Angiotensin II Receptor Wesley Prescribed: Yes AnticoagulationTherapy for Atrial Fibrillation/Atrialflutter: No Contraindication/Reason for not providing: no afib Aldosterone Antagonist Prescribed: No Contraindication/Reason for not providing: lvef >40% Hydralazine Nitrate Prescribed: No Contraindication/Reason for not providing: lvef >40% Implantable Cardioverter Defibrillator Therapy: No Contraindication/Reason for not providing: lvef >40% Cardiac Resynchronization Therapy Prescribed: No Contraindication/Reason for not providing: lvef >40% - Follow up Will be discharged to: Custodial Facility Follow Up Date (must be within 7 days from discharge): 07/22/16 Follow Up Time: 09:00
--- NOTE | 2016-08-08 07:51 | DS ---
The patient admitted to the hospital chief complaint shortness of breath, weakness, fatigue, tirednes s. The patient came to the hospital. Patient on bedrest, ____, bronchodilator. Patient showing impro vement. The patient discharged ____. Congestive Heart failure, COPD, coronary artery disease. Gisselle Vogel MD cc: [id number] TT: 08/05/2016 14:32:22 rn 08/08/2016 06:50:04
== END 2016-07-19 16:15 | DRG 293 ==
LOC: C.ER 12:24 → C.9E 15:11 → C.5T 18:50 → C.9I 07-13 06:16 → C.6T 07-15 06:58 → OBSVTOIN 07-16 11:11
PROVIDERS: ADMIT Internal Medicine Pulmonary Disease; ATTEND Internal Medicine Pulmonary Disease
DX: I11.0 Hypertensive heart disease with heart failure (principal); I95.9 Hypotension, unspecified; I48.91 Unspecified atrial fibrillation; E11.9 Type 2 diabetes mellitus without complications; I07.1 Rheumatic tricuspid insufficiency; J44.9 Chronic obstructive pulmonary disease, unspecified; D64.9 Anemia, unspecified; I50.23 Acute on chronic systolic (congestive) heart failure; R62.7 Adult failure to thrive; J45.909 Unspecified asthma, uncomplicated; M81.0 Age-related osteoporosis without current pathological fracture; M06.9 Rheumatoid arthritis, unspecified; Z95.5 Presence of coronary angioplasty implant and graft; F41.9 Anxiety disorder, unspecified; I25.10 Atherosclerotic heart disease of native coronary artery without angina pectoris; M48.00 Spinal stenosis, site unspecified; Z91.14 Patient's other noncompliance with medication regimen

== ENCOUNTER 2016-08-02 03:57 | Inpatient (IN) | payer MEDICARE, MEDICAID ==
[2016-08-02 03:57] VITALS: BMI 18.1
[2016-08-02] MEDS ORDERED: Amiodarone 150mg/3 ml vial ONE (04:11)
[2016-08-02 04:51] LABS: BASO # 0.2 K/uL (0.0-0.2); BASO % 1.1 % (0.0-2.0); EOS # 0.3 K/uL (0.0-0.7); EOS % 1.9 % (0.0-4.0); HEMATOCRIT 32.4 % (34.0-47.0); LYMPH # 3.4 K/uL (1.0-4.3); LYMPH % 18.4 % (20.0-40.0); MEAN CELL VOLUME 71.9 fL (81.0-99.0); MEAN CORPUSCULAR HEMOGLOBIN 22.5 pg (27.0-31.0); MEAN CORPUSCULAR HGB CONC 31.3 g/dL (33.0-37.0); MEAN PLATELET VOLUME 10.5 fL (7.2-11.7); MONO # 1.3 K/uL (0.0-0.8); MONO % 6.9 % (0.0-10.0); RED CELL DISTRIBUTION WIDTH 19.8 % (11.5-14.5); WHITE BLOOD COUNT 18.5 K/uL (4.8-10.8)
[2016-08-02 05:03] LABS: CHLORIDE 104 mmol/L (98-107); SODIUM 140 mmol/L (132-148)
[2016-08-02 05:04] LABS: POTASSIUM 3.4 mmol/L (3.6-5.2)
[2016-08-02 05:05] LABS: GFR AFRICAN-AMERICAN > 60
--- NOTE | 2016-08-02 05:05 | C.PDOC ---
History Of Present Illness Patient is an 81 year old female brought in via ALS for a complaint of SOB. 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 Patient has no other physical complaints at this time. Chief Complaint (Nursing): Respiratory Distress History Per: Patient History/Exam Limitations: no limitations Onset/Duration Of Symptoms: Hrs Current Symptoms Are (Timing): Still Present Initiating Event: Other (Not known) Associated Symptoms: denies: Fever, Chills Past Medical History Reviewed: Historical Data, Nursing Documentation, Vital Signs Vital Signs: Last Vital Signs Temp 99.2 F 08/02/16 20:00 Pulse 66 08/02/16 20:04 Resp 14 08/02/16 20:04 BP 87/53 L 08/02/16 20:04 Pulse Ox 100 08/02/16 20:04 - Medical History PMH: Anxiety, Arthritis, Asthma, Atrial Fibrillation, CHF, COPD, Dementia, Diabetes, Gall Bladder Disease, HTN, Hypercholesterolemia, Osteoporosis, Pneumonia (08/2015), Rheumatoid Arthritis Surgical History: Cholecystectomy, Coronary Stent (proximal RCA stent) - [employer] Procedures ASSISTANCE WITH RESPIRATORY VENTILATION, <24 HRS, CPAP (01/17/16) ASSISTANCE WITH RESPIRATORY VENTILATION, >96 HRS, CPAP (07/04/16) CONTINUOUS INVASIVE MECHANICAL VENTILATION <96 CONSEC HRS (08/07/12) DILATION OF 1 COR ART WITH DRUG-ELUT INTRA, PERC APPROACH (12/29/15) INJECT/INFUSE NEC (02/11/14) LAPAROSCOPIC CHOLECYSTECTOMY (08/07/12) NEBULIZER THERAPY (09/10/13) OXYGEN ENRICHMENT NEC (08/07/12) RESPIRATORY VENTILATION, LESS THAN 24 CONSECUTIVE HOURS (06/19/16) VITAL CAPACITY DETERMIN (08/07/12) Family History: States: Unknown Family Hx - Social History Hx Tobacco Use: No Hx Alcohol Use: No Hx Substance Use: No - Immunization History Hx Tetanus Toxoid Vaccination: No Hx Influenza Vaccination: No Hx Pneumococcal Vaccination: No Review Of Systems Constitutional: Negative for: Fever, Chills Respiratory: Positive for: Shortness of Breath Gastrointestinal: Negative for: Nausea, Vomiting, Diarrhea Physical Exam - Physical Exam Appears: Non-toxic, Other (Moderately dyspneic. Alert.) Skin: Normal Color, Warm, Dry Head: Atraumatic, Normacephalic Oral Mucosa: Moist Chest: Symmetrical, No Tenderness Cardiovascular: Rhythm Regular, No Murmur, JVD Respiratory: Rales (Bilaterally), No Rhonchi, No Wheezing Gastrointestinal/Abdominal: Soft, No Tenderness Extremity: Normal ROM, No Pedal Edema Neurological/Psych: Oriented x3, Normal Speech, Normal Cognition, Other (No focal deficits) ED Course And Treatment - Laboratory Results Result Diagrams: 08/02/16 04:47 08/02/16 13:57 O2 Sat by Pulse Oximetry: 100 (Room air) Pulse Ox Interpretation: Normal - Radiology CXR: Interpreted by Me, Viewed By Me CXR Interpretation: Yes: Cardiomegaly, Other (Pulmonary edema) Progress Note: Blood work, EKG, CXR and bipap ordered. Morphine, lasix and amiodarone administered. Patient was intubated with success, NG tube inserted orally. Patient will be admitted under Dr. Beck. Dr. Adames, tool/die maker post adoption coordinator, was contacted and made aware of patients arrival to the ICU. Disposition Discussed With : Gisselle Beck Doctor Will See Patient In The: Hospital Counseled Patient/Family Regarding: Diagnosis - Disposition Disposition: HOSPITALIZED Disposition Time: 06:04 Condition: GUARDED - POA Present On Arrival: None - Clinical Impression Clinical Impression: Acute pulmonary edema, Ventricular tachycardia - Scribe Statement The provider has reviewed the documentation as recorded by the Scribronal Emery All medical record entries made by the Scribe were at my direction and personally dictated by me. I have reviewed the chart and agree that the record accurately reflects my personal performance of the history, physical exam, medical decision making, and the department course for this patient. I have also personally directed, reviewed, and agree with the discharge instructions and disposition.
[2016-08-02 05:06] LABS: ALB/GLOB RATIO 1.2 (1.0-2.1); ALKALINE PHOSPHATASE 91 U/L (38-126); ALT/SGPT 26 U/L (9-52); AST/SGOT 72 U/L (14-36); BILIRUBIN,TOTAL 1.4 mg/dL (0.2-1.3); BLOOD UREA NITROGEN 13 mg/dL (7-17); CALCIUM 8.4 mg/dl (8.6-10.4); CARBON DIOXIDE 19 mmol/L (22-30); GLUCOSE,RANDOM 272 mg/dL (65-105); INR 1.2; TOTAL PROTEIN 7.5 g/dL (6.3-8.3)
[2016-08-02 05:27] LABS: ARTERIAL BLOOD HGB O2 SAT 92.9 % (95.0-98.0); CARBOXYHEMOGLOBIN 1.5 % (0.5-1.5); DRAW SITE RB; HHB 4.9 % (0.0-5.0); METHEMOGLOBIN 0.7 % (0.0-3.0)
[2016-08-02] MEDS ORDERED: Propofol 10 mg/ml Inj (20 ML) ONE (05:30)
[2016-08-02] MEDS ORDERED: Propofol 10 mg/ml Inj (20 ML) IV ONE ×2 (05:30→05:31)
[2016-08-02] MEDS ORDERED: Propofol 10 mg/ml 1,000 MG/100 ML VIAL ONE (05:37)
[2016-08-02 06:18] LABS: ABG MECHANICAL RATE 14; ARTERIAL BLOOD HGB O2 SAT 90.1 % (95.0-98.0); ATERIAL BLOOD GAS PEEP 5; CARBOXYHEMOGLOBIN 1.6 % (0.5-1.5); DRAW SITE RB; HHB 7.3 % (0.0-5.0)
[2016-08-02 06:40] LABS: RBC URINE 3 /hpf (0-3); URINE BACTERIA RARE (<OCC); URINE BILIRUBIN NEGATIVE (NEGATIVE); URINE COLOR Yellow (YELLOW); URINE GLUCOSE (UA) NORMAL (Normal); URINE KETONE NEGATIVE (NEGATIVE); URINE LEUKOCYTE ESTERASE NEG Leu/uL (Negative); URINE PROTEIN 1+ mg/dL (NEGATIVE); URINE UROBILINOGEN NORMAL mg/dL (0.2-1.0); WBC URINE 4 /hpf (0-5)
[2016-08-02 06:42] LABS: URINE BLOOD TRACE (NEGATIVE)
[2016-08-02] MEDS ORDERED: Propofol 10 mg/ml 100 MG/10 ML VIAL IV PRN (06:47)
[2016-08-02] MEDS ORDERED: Potassium Chloride 20 mEq/15 ml LIQ UD GT ONE ×2 (06:56→13:51)
--- NOTE | 2016-08-02 07:41 | RAD ---
HISTORY: r/o infiltrate bed 6 COMPARISON: 07/13/2016 FINDINGS: LUNGS: Prominent consolidative changes in the right mid to lower lung zone which may represent underlying infiltrate. Additional milder consolidative changes throughout the right lung as well as within the left hilar region and left lung base. Biapical pleural thickening with upper lobe granulomatous changes. Bilateral hilar prominence. Nodular density at the left lung base which may represent prominent nipple shadow. Multiple lines, tubes, and or catheters project over the upper abdomen and lower chest possibly external. Clinical correlation. PLEURA: As above. CARDIOVASCULAR: Cardiomegaly. Calcification at the aortic knob. OSSEOUS STRUCTURES: Degenerative changes in the spine and shoulders. VISUALIZED UPPER ABDOMEN: Normal. OTHER FINDINGS: None. IMPRESSION: Prominent consolidative changes in the right mid to lower lung zone which may represent underlying infiltrate. Additional milder consolidative changes throughout the right lung as well as within the left hilar region and left lung base. Biapical pleural thickening with upper lobe granulomatous changes. Bilateral hilar prominence. Nodular density at the left lung base which may represent prominent nipple shadow. Multiple lines, tubes, and or catheters project over the upper abdomen and lower chest possibly external. Clinical correlation.
--- NOTE | 2016-08-02 07:45 | RAD ---
HISTORY: post intubation bed 6 COMPARISON: 08/02/2016 FINDINGS: LUNGS: Endotracheal tube extending into the mid thoracic trachea. NG tube extending into the stomach. Multiple additional lines, tubes, and catheters project over the lower chest and upper abdomen, possibly external. Consolidative changes noted throughout the right lung most prominent in the right mid to lower lung zone as well as within the left hilar region and left lung base. Diffuse increased interstitial lung markings. Biapical pleural thickening with upper lobe granulomatous changes. Bilateral hilar prominence. Nodular density at the left lung base may represent prominent nipple shadow. PLEURA: As above. CARDIOVASCULAR: Cardiomegaly. OSSEOUS STRUCTURES: Degenerative changes in the spine and shoulders. Scoliotic curvature of the spine. VISUALIZED UPPER ABDOMEN: Normal. OTHER FINDINGS: None. IMPRESSION: Endotracheal tube extending into the mid thoracic trachea. NG tube extending into the stomach. Multiple additional lines, tubes, and catheters project over the lower chest and upper abdomen, possibly external. Consolidative changes noted throughout the right lung most prominent in the right mid to lower lung zone as well as within the left hilar region and left lung base. Diffuse increased interstitial lung markings. Biapical pleural thickening with upper lobe granulomatous changes. Bilateral hilar prominence. Nodular density at the left lung base may represent prominent nipple shadow.
[2016-08-02] MEDS ORDERED: Magnesium Hydroxide Susp 30 ml UD PO PRN (07:57)
[2016-08-02] MEDS ORDERED: (Novolin R) Insulin Human Regular 100 units/ml vial SC SCH (08:00)
[2016-08-02] MEDS: Albuterol 0.083% Inhal Sol (2.5 mg/3 mL) UD INH PRN ×2 (08:11→19:41)
[2016-08-02] MEDS: Ipratropium 0.02% Inhal Soln (0.5 mg/2.5 ml) UD IH PRN ×2 (08:11→19:41)
[2016-08-02] MEDS: Magnesium Sulfate 1 gm in D5W 1 GM/100 ML BAG IVPB SCH ×2 (08:53→12:14)
--- NOTE | 2016-08-02 12:06 | CP.PCM.CON ---
<Les Marrero - Last Filed: 08/02/16 11:43> History of Present Illness - History of Present Illness History of Present Illness: Critical Care Consultation Note Dr. Villa CC: SOB HPI: This is an 81 year old female with a past medical history significant for A.fib, HTN, DM, COPD, CHF, and RA presenting for critical care evaluation of acute pulmonary edema and ventricular tachycardia. The patient was brought to the ED and per ACLS was cardioverted. Patient The patient was also intubated in the ED and received 4mg morphine, 40mg lasix, 1mg Ativan, and 618mls amiodarone as a loading dose. Presently, the patient is on PRVC (Tv 400, Rate 14, PEEP 5, FiO2 70%). The patient is continuing to receive amiodarone. Sedation for intubation is achieved with propofol. Previously, the patient has multiple admissions to the hospital for CHF exacerbations, pulmonary edema, and pneumonia. Past medical hx: Afib, HTN, DM, COPD, CHF, RA Past Surgical Hx: Cholecystectomy; Coronary stent (proximal RCA) placed in June 2016 Allergies: moxifloxacin Family hx: psychiatric : daughter has bipolar disorder Medical: unknown Review of Systems - Review of Systems Systems not reviewed;Unavailable: Intubated Past Patient History - Infectious Disease Hx of Infectious Diseases: None - Tetanus Immunizations Tetanus Immunization: Unknown - Past Medical History & Family History Past Medical History?: Yes - Past Social History Smoking Status: Never Smoked - CARDIAC Hx Atrial Fibrillation: Yes Hx Congestive Heart Failure: Yes Hx Hypercholesterolemia: Yes Hx Hypertension: Yes - PULMONARY Hx Asthma: Yes Hx Chronic Obstructive Pulmonary Disease (COPD): Yes Hx Pneumonia: Yes (08/2015) - NEUROLOGICAL Hx Dementia: Yes - HEENT Hx HEENT Problems: No - RENAL Hx Chronic Kidney Disease: No Hx Kidney Stones: No - ENDOCRINE/METABOLIC Hx Hyperthyroidism: No Hx Hypothyroidism: No - HEMATOLOGICAL/ONCOLOGICAL Hx Anemia: No Hx Human Immunodeficiency Virus (HIV): No Hx Sickle Cell Disease: No - INTEGUMENTARY Hx Dermatological Problems: No - MUSCULOSKELETAL/RHEUMATOLOGICAL Hx Arthritis: Yes Hx Osteoporosis: Yes Hx Rheumatoid Arthritis: Yes - GASTROINTESTINAL Hx Gall Bladder Disease: Yes - GENITOURINARY/GYNECOLOGICAL Hx Sexually Transmitted Disorders: No - PSYCHIATRIC Hx Anxiety: Yes Hx Substance Use: No - SURGICAL HISTORY Hx Cholecystectomy: Yes Hx Coronary Stent: Yes (proximal RCA stent) - ANESTHESIA Hx Anesthesia: Yes Hx Anesthesia Reactions: No Hx Malignant Hyperthermia: No Meds Allergies/Adverse Reactions: Allergies Allergy/AdvReac Type Severity Reaction Status Date / Time moxifloxacin HCl Allergy Severe ANAPHYLAXIS Verified 08/02/16 04:16 [From Avelox] - Medications Medications: Current Medications Acetaminophen (Tylenol 325mg Tab) 650 mg PO Q6 PRN PRN Reason: Fever >100.4 F Albuterol Sulfate (Albuterol 0.083% Inhal Claudia (2.5 Mg/3 Ml) Ud) 2.5 mg INH RQ6 PRN PRN Reason: Wheezing Last Admin: 08/02/16 08:11 Dose: 2.5 mg Aspirin (Aspirin Chewable) 81 mg PO DAILY [facility] Carvedilol (Coreg) 6.25 mg PO BID [facility] Clopidogrel Bisulfate (Plavix) 75 mg PO DAILY [facility] Famotidine (Pepcid) 20 mg IVP Q12 [facility] Ferrous Sulfate (Feosol Liq) 300 mg PO TID [facility] Furosemide (Lasix) 40 mg IVP DAILY [facility] Heparin Sodium (Porcine) (Heparin) 5,000 units SC Q8 [facility] Amiodarone HCl 900 mg/ (Dextrose) 500 mls @ 33.33 mls/hr IV .Q15H1M ONE; 1 MG/ MIN PRN Reason: Protocol Stop: 08/02/16 20:25 Last Admin: 08/02/16 05:25 Dose: 33.33 mls/hr Propofol (Diprivan) 1,000 mg in 100 mls @ 1.905 mls/hr IV .Q24H PRN; Protocol; 5 MCG/KG/MIN PRN Reason: TITRATE PER MD ORDER Propofol (Diprivan) 100 mg in 10 mls @ 1.905 mls/hr IV .Q5H15M PRN; Protocol; 5 MCG/KG/MIN PRN Reason: TITRATE PER MD ORDER Potassium Chloride (Potassium Chloride 20 Meq/100 Ml) 20 meq in 100 mls @ 50 mls/hr IVPB ONCE ONE Stop: 08/02/16 11:59 Piperacillin Sod/Tazobactam Sod (Zosyn 3.375 Gm Iv Premix) 3.375 gm in 50 mls @ 100 mls/hr IVPB Q6H [facility] Insulin Human Regular (Novolin R) 0 unit SC Q4 [facility] PRN Reason: Protocol Ipratropium [place] (Atrovent) 0.5 mg IH RQ6 PRN PRN Reason: Wheezing Last Admin: 08/02/16 08:11 Dose: 0.5 mg Magnesium Hydroxide (Milk Of Magnesia) 30 ml PO BID PRN PRN Reason: Constipation Midazolam HCl (Versed Inj) 1 mg IVP Q4 PRN PRN Reason: Sedation Rosuvastatin Calcium (Crestor) 5 mg PO HS [facility] Sennosides (Senokot Tab) 8.6 mg NG DAILY [facility] Physical Exam - Constitutional Appears: Chronically Ill - Head Exam Head Exam: ATRAUMATIC, NORMOCEPHALIC Additional comments: ET Tube in place - Eye Exam Eye Exam: Normal appearance Pupil Exam: PERRL - ENT Exam ENT Exam: Mucous Membranes Moist - Neck Exam Neck exam: Negative for: Lymphadenopathy - Respiratory Exam Respiratory Exam: Decreased Breath Sounds, Rales (Bibasilar ), NORMAL BREATHING PATTERN. absent: Chest Wall Tenderness, Clear to Auscultation Bilateral, Rhonchi, Wheezes - Cardiovascular Exam Cardiovascular Exam: Tachycardia, REGULAR RHYTHM, +S1, +S2. absent: Diastolic murmur, JVD, RRR, Systolic Murmur - GI/Abdominal Exam GI & Abdominal Exam: Normal Bowel Sounds, Soft. absent: Distended, Firm, Guarding, Hernia, Rebound, Rigid, Tenderness - Extremities Exam Extremities exam: Positive for: normal inspection, pedal pulses present - Neurological Exam Additional comments: sedated - Skin Skin Exam: Dry, Intact, Normal Color, Warm Results - Vital Signs Recent Vital Signs: Last Vital Signs Temp Pulse 76 08/02/16 10:40 Resp 18 08/02/16 10:40 BP 119/79 08/02/16 10:19 Pulse Ox 100 08/02/16 10:40 - Labs Result Diagrams: 08/02/16 04:47 08/02/16 04:47 Labs: Laboratory Results - last 24 hr 08/02/16 08/02/16 08/02/16 06:10 06:34 08:39 Puncture Site Rb pCO2 42 pO2 62 L HCO3 18.7 L ABG pH 7.26 L ABG Total CO2 20.1 L ABG O2 Saturation 92.5 L ABG Base Excess -7.8 L ABG Hemoglobin 10.3 L ABG Carboxyhemoglobin 1.6 H POC ABG HHb (Measured) 7.3 H ABG Methemoglobin 1.0 Gael Test Na A-a O2 Difference 385.0 Respiratory Index 6.2 Hgb O2 Saturation 90.1 L Mechanical Rate 14 FiO2 70.0 Tidal Volume 400 PEEP 5 POC Glucose (mg/dL) 171 H Urine Color Yellow Urine Clarity Hazy Urine pH 6.0 Ur Specific [place] 1.008 Urine Protein 1+ H Urine Glucose (UA) Normal Urine Ketones Negative Urine Blood Trace H Urine Nitrate Negative Urine Bilirubin Negative Urine Urobilinogen Normal Ur Leukocyte Esterase Neg Urine WBC (Auto) 4 Urine RBC (Auto) 3 Ur Squamous Epith Cells 1 Urine Bacteria Rare Hyaline Casts 6-10 H Assessment & Plan (1) Acute pulmonary edema Status: Acute (2) Ventricular tachycardia Status: Resolved (3) CHF exacerbation Status: Acute - Assessment and Plan (Free Text) Assessment: This is an 81 year old female with a past medical history significant for A.fib , HTN, DM, COPD, CHF, and RA presenting for critical care evaluation of acute pulmonary edema and ventricular tachycardia. Plan: Patient Status: Intubated and Sedated Central Line Access Right IJ TLC Neuro: -Intubated and Sedated -Cranial Reflexes Intact Cardiovascular: -Amiodarone 500mls at 33.33 mls/hr IV for ventricular arrhythmia -CHF acute on chronic exacerbation -Pro-BNP = 4780 -Albuterol 2.5 mg INH RQ6 prn and Ipratropium 0.5mg administered 08/02/16 for wheezing and acute SOB -Lasix 40 mg IVP daily [facility] -Coreg 6.25 mg PO BID [facility] -08/02/16 ECG: V.tach; LAD; incomplete RBBB, left ventricular hypertrophy -06/25/16 ECHO: Mildly impaired systolic function. EF 40-45%. There is akinesis and thinning of the basal and mid inferior wall and septal wall segments (both anterior and inferior) indicative of prior IL. Left and right atrium moderately dilated. Aortic valve moderately sclerotic. Severe mitral regurgitation. Poor MV leaflet coaptation due to papillary muscle displacement secondary to IL. Moderate tricuspid regurgitation. -08/02/16: central line placed - Consent: Detailed explanation of the procedure, treatment options, risks including but not limited to infection and bleeding, and benefits were explained to the patient. A verbal informed consent was obtained from the patient's daughter over the phone and verified by two nurses. The informed consent sheet was placed in the patient chart prior to the procedure. -Technique: A time out was preformed identifying the correct procedure, the correct location with the nursing staff. The right neck was prepped with 2% chlorhexidine and draped with a full length sterile sheet in the usual fashion. 1% lidocaine was administered subcutaneously for local anesthesia. The left internal jugular was accessed under ultrasound guidance with an 18 gauge thin wall needle. A triple lumen catheter was inserted via the seldinger technique. Blood was withdrawn from all lumens and flushed with normal saline. The catheter was sutured in place and a sterile dressing was applied over the site prior to removal of drapes. - The patient tolerated the procedure well and there were no complications. - Chest x ray was ordered to confirm proper placement of the line. Pulmonary: -Patient intubated -FiO2 = 70%, Rate 14, PEEP 5, TV 400mL -Daily CXR -Acute Pulmonary Edema 2/2 to CHF acute on chronic exacerbation -Albuterol 2.5 mg INH RQ6 prn and Ipratropium 0.5mg administered 08/02/16 for wheezing and acute SOB -ABG- Anion Gap Metabolic Acidosis likely 2/2 to lactic acidosis -08/02/16: CO2 42 / O2 62 / HCO3 18.7 / pH 7.26 -08/02/16: CO2 35 / O2 69 / HCO3 16.7 / pH 7.26 -Possible Pneumonia likely 2/2 aspiration vs Cardiogenic Pulmonary Edema -Started on Zosyn 3.375 gm IV -Lasix 40 mg IVP daily [facility] -Imaging -08/02/16 CXR: Endotracheal tube extending into the mid thoracic trachea. NG tube extending into the stomach. Multiple additional lines, tubes, and catheters project over the lower chest and upper abdomen, possibly external. Consolidative changes noted throughout the right lung most prominent in the right mid to lower lung zone as well as within the left hilar region and left lung base. Diffuse increased interstitial lung markings. Biapical pleural thickening with upper lobe granulomatous changes. Bilateral hilar prominence. Nodular density at the left lung base may represent prominent nipple shadow. Gastrointestinal: No acute issues. Hematology: -Microcytic anemia likely 2/2 to iron deficiency vs anemia of chronic disease -H&H 10.2/32.4 with MCV 71.9 -Ferrous sulfate 300mg PO TID [facility] Endocrine: -Random glucose 272 -POC glucose 171 -Sliding Scale Insulin Renal: -Metabolic Acidosis likely 2/2 to lactic acidosis -Intubated -Daily ABG Musculoskeletal: No acute issues Genitourinary: No acute issues Infectious disease: -Leukocytosis -WBC 18.5 -Zosyn 3.375g IV q6 GI prophylaxis: Pepcid 20mg IVP Q12 [facility] DVT prophylaxis: Heparin 5000 units SC Q8 [facility]; Clopidogrel 75mg PO daily [facility] Other prophylaxis: Aspirin 81 mg PO daily [facility] Case discussed with Dr. Allen Marrero PGY1 - Date & Time Date: 08/02/16 Time: 12:31 Proc: Central Venous Access - Time Performed Time Performed: 11:50 - Time Out Time Out: Side verified, Site verified, Patient ID confirmed, Sterile procedures obs. - Procedure Procedure: Central Line placement: Right Technique:: Ultrasound guidance - Consent obtained Consent obtained: Verbal (Telephone consent with Daughter) - Performed by Performed by: Attending Physician - Indications Indication(s):: Peripheral vein unobtain., Mult.intravenous meds, Centrally admin. meds Contraindications: None Tube type:: Triple lumen Tube size Tun[place]ian:: 7 - Local Anesthetic Local Anesthetic: Lidocaine: 1% Lidocaine - Number of Attempts Attempts: 1 - Depth of Skin Depth at skin cm:: 15 - Line sutured in place Line sutured in place:: Yes - Confirmation Confirmation:: CXR -tube approp position, No pneumothorax - Post-procedural O2 Sat % Post-procedural O2 sat %:: 100 - Complications Complications: None - Patient tolerated procedure Patient Tolerated Procedure:: Well <Rustam Villa - Last Filed: 08/02/16 18:24> Meds - Medications Medications: Current Medications Acetaminophen (Tylenol 325mg Tab) 650 mg PO Q6 PRN PRN Reason: Fever >100.4 F Albuterol Sulfate (Albuterol 0.083% Inhal Claudia (2.5 Mg/3 Ml) Ud) 2.5 mg INH RQ6 PRN PRN Reason: Wheezing Last Admin: 08/02/16 08:11 Dose: 2.5 mg Aspirin (Aspirin Chewable) 81 mg PO DAILY [facility] Last Admin: 08/02/16 12:13 Dose: 81 mg Carvedilol (Coreg) 6.25 mg PO BID [facility] Last Admin: 08/02/16 18:08 Dose: 6.25 mg Clopidogrel Bisulfate (Plavix) 75 mg PO DAILY [facility] Last Admin: 08/02/16 12:13 Dose: 75 mg Famotidine (Pepcid) 20 mg IVP Q12 [facility] Last Admin: 08/02/16 12:14 Dose: 20 mg Ferrous Sulfate (Feosol Liq) 300 mg PO TID [facility] Last Admin: 08/02/16 18:08 Dose: 300 mg Furosemide (Lasix) 40 mg IVP DAILY [facility] Last Admin: 08/02/16 12:13 Dose: 40 mg Heparin Sodium (Porcine) (Heparin) 5,000 units SC Q8 [facility] Last Admin: 08/02/16 14:09 Dose: 5,000 units Amiodarone HCl 900 mg/ (Dextrose) 500 mls @ 33.33 mls/hr IV .Q15H1M ONE; 1 MG/ MIN PRN Reason: Protocol Stop: 08/02/16 20:25 Last Admin: 08/02/16 05:25 Dose: 33.33 mls/hr Propofol (Diprivan) 1,000 mg in 100 mls @ 1.905 mls/hr IV .Q24H PRN; Protocol; 5 MCG/KG/MIN PRN Reason: TITRATE PER MD ORDER Last Admin: 08/02/16 14:33 Dose: 39.36 mcg/kg/min, 15 mls/hr Propofol (Diprivan) 100 mg in 10 mls @ 1.905 mls/hr IV .Q5H15M PRN; Protocol; 5 MCG/KG/MIN PRN Reason: TITRATE PER MD ORDER Piperacillin Sod/Tazobactam Sod (Zosyn 3.375 Gm Iv Premix) 3.375 gm in 50 mls @ 100 mls/hr IVPB Q6H [facility] Last Admin: 08/02/16 18:08 Dose: 100 mls/hr Insulin Human Regular (Novolin R) 0 unit SC Q6H [facility] PRN Reason: Protocol Last Admin: 08/02/16 12:18 Dose: Not Given Ipratropium [place] (Atrovent) 0.5 mg IH RQ6 PRN PRN Reason: Wheezing Last Admin: 08/02/16 08:11 Dose: 0.5 mg Magnesium Hydroxide (Milk Of Magnesia) 30 ml PO BID PRN PRN Reason: Constipation Last Admin: 08/02/16 12:13 Dose: 30 ml Midazolam HCl (Versed Inj) 1 mg IVP Q4 PRN PRN Reason: Sedation Rosuvastatin Calcium (Crestor) 5 mg PO HS [facility] Sennosides (Senokot Tab) 8.6 mg NG DAILY [facility] Results - Vital Signs Recent Vital Signs: Last Vital Signs Temp Pulse 68 08/02/16 16:49 Resp 17 08/02/16 16:49 BP 103/74 08/02/16 16:49 Pulse Ox 100 08/02/16 16:49 - Labs Result Diagrams: 08/02/16 04:47 08/02/16 13:57 Labs: Laboratory Results - last 24 hr 08/02/16 08/02/16 08/02/16 06:10 06:34 08:39 Puncture Site Rb pCO2 42 pO2 62 L HCO3 18.7 L ABG pH 7.26 L ABG Total CO2 20.1 L ABG O2 Saturation 92.5 L ABG Base Excess -7.8 L ABG Hemoglobin 10.3 L ABG Carboxyhemoglobin 1.6 H POC ABG HHb (Measured) 7.3 H ABG Methemoglobin 1.0 Gael Test Na A-a O2 Difference 385.0 Respiratory Index 6.2 Hgb O2 Saturation 90.1 L Mechanical Rate 14 FiO2 70.0 Tidal Volume 400 PEEP 5 Sodium Potassium Chloride Carbon Dioxide Anion Gap BUN Creatinine Est GFR ( Amer) Est GFR (Non-Af Amer) POC Glucose (mg/dL) 171 H Random Glucose Calcium Phosphorus Magnesium Total Bilirubin AST ALT Alkaline Phosphatase Total Creatine Kinase CK-MB (Mass) Troponin I Total Protein Albumin Globulin Albumin/Globulin Ratio Procalcitonin Urine Color Yellow Urine Clarity Hazy Urine pH 6.0 Ur Specific [place] 1.008 Urine Protein 1+ H Urine Glucose (UA) Normal Urine Ketones Negative Urine Blood Trace H Urine Nitrate Negative Urine Bilirubin Negative Urine Urobilinogen Normal Ur Leukocyte Esterase Neg Urine WBC (Auto) 4 Urine RBC (Auto) 3 Ur Squamous Epith Cells 1 Urine Bacteria Rare Hyaline Casts 6-10 H 08/02/16 08/02/16 08/02/16 11:54 13:57 13:57 Puncture Site pCO2 pO2 HCO3 ABG pH ABG Total CO2 ABG O2 Saturation ABG Base Excess ABG Hemoglobin ABG Carboxyhemoglobin POC ABG HHb (Measured) ABG Methemoglobin Gael Test A-a O2 Difference Respiratory Index Hgb O2 Saturation Mechanical Rate FiO2 Tidal Volume PEEP Sodium 135 Potassium 3.8 Chloride 101 Carbon Dioxide 21 L Anion Gap 17 BUN 13 Creatinine 0.8 Est GFR ( Amer) > 60 Est GFR (Non-Af Amer) > 60 POC Glucose (mg/dL) 142 H Random Glucose 138 H Calcium 8.2 L Phosphorus 3.7 Magnesium 2.8 H Total Bilirubin 1.5 H AST 37 H D ALT 25 Alkaline Phosphatase 90 Total Creatine Kinase 44 CK-MB (Mass) 1.25 Troponin I 0.0800 Total Protein 6.8 Albumin 3.7 Globulin 3.1 Albumin/Globulin Ratio 1.2 Procalcitonin 2.16 H Urine Color Urine Clarity Urine pH Ur Specific [place] Urine Protein Urine Glucose (UA) Urine Ketones Urine Blood Urine Nitrate Urine Bilirubin Urine Urobilinogen Ur Leukocyte Esterase Urine WBC (Auto) Urine RBC (Auto) Ur Squamous Epith Cells Urine Bacteria Hyaline Casts Attending/Attestation - Attestation I have personally seen and examined this patient.: Yes I have fully participated in the care of the patient.: Yes I have reviewed all pertinent clinical information: Yes Notes (Text): 08/02/16 18:23 Patient seen and examined in the intensive care unit. Case discussed with house staff in the morning rounds. Patient intubated in the emergency room and put on ventilatory support for respiratory distress being treated for CHF and possible pneumonia Started on IV antibiotics and continue Lasix Follow-up chest x-ray and ABG Continue IV sedation for now
[2016-08-02] MEDS: Ferrous Sulfate 300 mg/5 mL Liq UD PO SCH ×3 (12:12→18:08)
[2016-08-02] MEDS: (Novolin R) Insulin Human Regular 100 units/ml vial SC SCH ×2 (12:18→19:05)
[2016-08-02] MEDS: Piperacill/Tazo 3.375gm in Dex 3.375 GM/50 ML BAG IVPB SCH ×3 (13:09→21:41)
--- NOTE | 2016-08-02 14:10 | CARD ---
APPROVED REPORT EXAM: Two-dimensional and M-mode echocardiogram with Doppler and color Doppler. Other Information Quality : LimitedRhythm : NSR INDICATION Syncope Congestive Heart Failure COPD RISK FACTORS Hypertension Diabetes M-Mode DIMENSIONS Left Atrium (MM)4.51 (2.5-4.0cm)Aortic Root2.78 (2.2-3.7cm) Aortic Cusp Exc.1.56 (1.5-2.0cm) Aortic Valve AoV Peak Sgaifkpf379.6cm/Ezequiel Peak GR.5mmHg Mitral Valve MV E Oihkobge832.8cm/sMV A Qhfvaedj25.2cm/sE/A ratio1.9 TDI E/Lateral E'0.0E/Medial E'0.0 Tricuspid Valve TR Peak [id number]/sTR Peak [id number] <Conclusion> SUBOPTIMAL STUDY , OFF AXIS VIEWS DILATED LV WITH APPROXIMATE LVEF 35% SEPTUM APPERS AKINETIC AND DYSKINETIC PULM HYPERTENSION MOD. LAE MOD MR
[2016-08-02 14:25] LABS: CHLORIDE 101 mmol/L (98-107); POTASSIUM 3.8 mmol/L (3.6-5.2); SODIUM 135 mmol/L (132-148)
[2016-08-02 14:27] LABS: BILIRUBIN,TOTAL 1.5 mg/dL (0.2-1.3); CARBON DIOXIDE 21 mmol/L (22-30); GFR AFRICAN-AMERICAN > 60
[2016-08-02 14:28] LABS: ALB/GLOB RATIO 1.2 (1.0-2.1); ALKALINE PHOSPHATASE 90 U/L (38-126); ALT/SGPT 25 U/L (9-52); AST/SGOT 37 U/L (14-36); BLOOD UREA NITROGEN 13 mg/dL (7-17); CALCIUM 8.2 mg/dl (8.6-10.4); GLUCOSE,RANDOM 138 mg/dL (65-105); PHOSPHOROUS 3.7 mg/dL (2.5-4.5); TOTAL PROTEIN 6.8 g/dL (6.3-8.3)
[2016-08-02 14:29] LABS: MAGNESIUM 2.8 mg/dL (1.6-2.3)
[2016-08-02] MEDS: Propofol 10 mg/ml 1,000 MG/100 ML VIAL IV PRN ×2 (14:33→23:07)
--- NOTE | 2016-08-02 14:43 | RAD ---
HISTORY: S/P R TLC Placement . Portable study 12:10. COMPARISON: August 02, 2016. At 06:11. FINDINGS: LUNGS: Stable infiltrates PLEURA: No significant interval change compared to the prior examination(s). CARDIOVASCULAR: No radiographic findings to suggest acute or significant cardiovascular disease. Satisfactory position of recently placed TLC inserted via right IJ approach. Tip in the SVC. No pneumothorax following catheter placement. OSSEOUS STRUCTURES: No significant abnormalities. VISUALIZED UPPER ABDOMEN: Normal. OTHER FINDINGS: Stable, satisfactory position ventilatory, and nasogastric apparatus. IMPRESSION: No adverse findings following right TLC catheter placement. Otherwise no interval change compared to the prior study approximately 6 hours earlier. Is
[2016-08-03] MEDS: Piperacill/Tazo 3.375gm in Dex 3.375 GM/50 ML BAG IVPB SCH ×4 (03:45→21:41)
[2016-08-03 06:01] LABS: ABG MECHANICAL RATE 14; ATERIAL BLOOD GAS PEEP 5; DRAW SITE RB
[2016-08-03 06:33] LABS: BASO # 0.2 K/uL (0.0-0.2); BASO % 1.8 % (0.0-2.0); EOS # 0.1 K/uL (0.0-0.7); EOS % 0.9 % (0.0-4.0); HEMATOCRIT 29.6 % (34.0-47.0); LYMPH # 1.6 K/uL (1.0-4.3); LYMPH % 14.3 % (20.0-40.0); MEAN CELL VOLUME 71.5 fL (81.0-99.0); MEAN CORPUSCULAR HEMOGLOBIN 22.6 pg (27.0-31.0); MEAN CORPUSCULAR HGB CONC 31.6 g/dL (33.0-37.0); MEAN PLATELET VOLUME 10.8 fL (7.2-11.7); MONO # 1.1 K/uL (0.0-0.8); MONO % 9.8 % (0.0-10.0); NRBC % 0.2 % (0.0-2.0); RED CELL DISTRIBUTION WIDTH 19.4 % (11.5-14.5); WHITE BLOOD COUNT 11.3 K/uL (4.8-10.8)
[2016-08-03] MEDS: (Novolin R) Insulin Human Regular 100 units/ml vial SC SCH ×5 (06:35→23:55)
[2016-08-03 06:41] LABS: POTASSIUM 4.4 mmol/L (3.6-5.2)
[2016-08-03 06:43] LABS: ALB/GLOB RATIO 1.2 (1.0-2.1); BILIRUBIN,TOTAL 1.8 mg/dL (0.2-1.3); PHOSPHOROUS 3.2 mg/dL (2.5-4.5); TOTAL PROTEIN 6.6 g/dL (6.3-8.3)
[2016-08-03 06:44] LABS: CALCIUM 8.4 mg/dl (8.6-10.4); MAGNESIUM 2.4 mg/dL (1.6-2.3)
[2016-08-03 06:57] LABS: INR 1.3
[2016-08-03 07:14] LABS: THYROID STIMULATING HORMONE 2.34 mIU/L (0.46-4.68)
[2016-08-03] MEDS: Ipratropium 0.02% Inhal Soln (0.5 mg/2.5 ml) UD IH PRN ×3 (07:46→19:25)
[2016-08-03] MEDS: Albuterol 0.083% Inhal Sol (2.5 mg/3 mL) UD INH PRN ×3 (07:46→19:25)
--- NOTE | 2016-08-03 08:53 | RAD ---
Chest x-ray single frontal view History: Endotracheal tube evaluation. Comparison: 08/02/2016 Findings: Endotracheal tube extending into the mid thoracic trachea. Other lines and tubes in stable position. Biapical pleural thickening with upper lobe granulomatous changes. Venous congestion. Small nodular density at the right lung base. Left hilar prominence. Patchy increased markings at the left lung base. Severe levoscoliotic curvature of the lumbar spine. Mild cardiomegaly. Degenerative changes in the spine and shoulders. Impression: No significant interval change since the prior study.
[2016-08-03] MEDS: Ferrous Sulfate 300 mg/5 mL Liq UD PO SCH ×3 (09:23→17:23)
--- NOTE | 2016-08-03 10:51 | CP.CCUPN ---
<Les Marrero - Last Filed: 08/03/16 13:34> CCU Subjective - Physician Review Subjective (Free Text): 08/03/16 13:35 Patient seen and examined at bedside. No acute distress. No acute events overnight. Nursing staff reports no issues. Patient remains on PRVC (Tv 370, Rate 12, PEEP 5, FiO2 40%). Patient tolerated placement of right IJ TLC. The patient's lactate remains high at 2.7. Today on rounds, the patient's vent setting were change to TV 370mL and rate of 12/min due to respiratory alkalosis. Cardiology was consulted due to continued downward trend of LVEF on ECHO (most recently 35%). Post-Rounds, patient was switched to CPAP 18/5 which was subsequently reduced to 15/5. Patient is tolerating CPAP well. Critical Care Time Spent (in minutes): 60 CCU Objective - Vital Signs / Intake & Output Vital Signs (Last 4 hours): Vital Signs Temp Pulse Resp BP Pulse Ox 08/03/16 10:03 73 30 H 125/78 100 08/03/16 10:00 73 33 H 100 08/03/16 09:37 111/70 08/03/16 09:24 69 19 111/70 100 08/03/16 09:03 71 27 H 120/76 100 08/03/16 09:00 73 34 H 100 08/03/16 08:28 69 24 111/55 L 100 08/03/16 08:03 66 12 90/64 L 100 08/03/16 08:00 98.1 F 67 13 100 08/03/16 07:03 103/67 08/03/16 07:00 67 20 100 Intake and Output (Last 8hrs): Intake & Output 08/02/16 08/03/16 08/03/16 22:59 06:59 14:59 Intake Total 537.4 348.8 197.3 Output Total 451 205 230 Balance 86.4 143.8 -32.7 Weight 45.019 kg Intake: IV 100 Intake, IV Amount 327.4 188.8 117.3 Left External Jugular 133.6 133.6 Right Internal Jugular 100 110.4 left external jugular 2 93.8 55.2 6.9 Oral 50 Tube Feeding 60 160 80 Output: Urine 450 205 230 Urethral (Hernandez) 450 205 230 Stool 1 0 Other: # Bowel Movements 0 - Physical Exam Physical Exam Limitations: Positive for: Other (intubated and sedated) Head: Positive for: Atraumatic, Normocephalic, Other (et tube in place) Mouth: Positive for: Moist Mucous Membranes. Negative for: Drooling Neck: Negative for: JVD, Lymphadenopathy Respiratory/Chest: Positive for: Good Air Exchange, Rhonchi. Negative for: Clear to Auscultation, Respiratory Distress, Accessory Muscle Use, Wheezes, Rales Cardiovascular: Positive for: Regular Rate and Rhythm, Normal S1, S2, Peripheal Pulses Present. Negative for: Murmurs Abdomen: Positive for: Normal Bowel Sounds. Negative for: Tenderness, Distention, Peritoneal Signs, Rebound, Guarding Upper Extremity: Positive for: Normal Inspection, NORMAL PULSES. Negative for: Cyanosis, Edema Lower Extremity: Positive for: Normal Inspection, NORMAL PULSES. Negative for: Edema, CALF TENDERNESS Neurological: Positive for: Other (sedated) Skin: Positive for: Warm, Dry, Normal Color. Negative for: Rashes - Medications Active Medications: Active Medications Generic Name Dose Route Start Last Admin Trade Name Freq PRN Reason Stop Dose Admin Acetaminophen 650 mg 08/02/16 06:47 Tylenol 325mg Tab PO Q6 PRN Fever >100.4 F Albuterol Sulfate 2.5 mg 08/02/16 06:47 08/03/16 07:46 Albuterol 0.083% Inhal Claudia (2.5 Mg/3 Ml) Ud INH 2.5 mg RQ6 PRN Administration Wheezing Aspirin 81 mg 08/02/16 10:00 08/03/16 09:24 Aspirin Chewable PO 81 mg DAILY BLAKE Administration Carvedilol 6.25 mg 08/02/16 10:00 08/03/16 09:23 Coreg PO 6.25 mg BID BLAKE Administration Clopidogrel Bisulfate 75 mg 08/02/16 10:00 08/03/16 09:24 Plavix PO 75 mg DAILY BLAKE Administration Famotidine 20 mg 08/02/16 10:08/03/16 09:56 Pepcid IVP 20 mg Q12 BLAKE Administration Ferrous Sulfate 300 mg 08/02/16 10:00 08/03/16 09:23 Feosol Liq PO 300 mg TID BLAKE Administration Furosemide 40 mg 08/02/16 10:00 08/03/16 09:37 Lasix IVP 40 mg DAILY BLAKE Administration Heparin Sodium (Porcine) 5,000 units 08/02/16 14:00 08/03/16 05:47 Heparin SC 5,000 units Q8 BLAKE Administration Propofol 1,000 mg in 100 mls @ 1.905 mls/hr 08/02/16 06:48 08/02/16 23:07 Diprivan IV 18.1 mcg/kg/min .Q24H PRN 6.9 mls/hr TITRATE PER MD ORDER Administration Protocol 5 MCG/KG/MIN Propofol 100 mg in 10 mls @ 1.905 mls/hr 08/02/16 06:47 Diprivan IV .Q5H15M PRN TITRATE PER MD ORDER Protocol 5 MCG/KG/MIN Piperacillin Sod/Tazobactam Sod 3.375 gm in 50 mls @ 100 mls/hr 08/02/16 09: 15 08/03/16 09:03 Zosyn 3.375 Gm Iv Premix IVPB 100 mls/hr Q6H BLAKE Administration Insulin Human Regular 0 unit 08/02/16 12:00 08/03/16 06:35 Novolin R SC Not Given Q6H [facility] Protocol Ipratropium [place] 0.5 mg 08/02/16 06:47 08/03/16 07:46 Atrovent IH 0.5 mg RQ6 PRN Administration Wheezing Magnesium Hydroxide 30 ml 08/02/16 07:57 08/02/16 12:13 Milk Of Magnesia PO 30 ml BID PRN Administration Constipation Midazolam HCl 1 mg 08/02/16 06:52 Versed Inj IVP Q4 PRN Sedation Rosuvastatin Calcium 5 mg 08/02/16 22:00 08/02/16 21:45 Crestor PO 5 mg HS BLAKE Administration Sennosides 8.6 mg 08/02/16 22:00 08/03/16 10:45 Senokot Tab NG 8.6 mg DAILY BLAKE Administration - Patient Studies Lab Studies: Microbiology Studies 08/02/16 Unknown Urine Culture - Final Urine 10-50,000 CFU/ML. MULTIPLE SPECIES. PROBABLE CONTAMINATION. 08/02/16 09:14 Gram Stain - Final Trachasp Lab Studies 08/03/16 08/03/16 08/03/16 Range/Units 06:23 06:23 06:23 WBC 11.3 H (4.8-10.8) K/uL RBC 4.13 (3.80-5.20) Mil/uL Hgb 9.3 L (11.0-16.0) g/dL Hct 29.6 L (34.0-47.0) % MCV 71.5 L (81.0-99.0) fL MCH 22.6 L (27.0-31.0) pg MCHC 31.6 L (33.0-37.0) g/dL RDW 19.4 H (11.5-14.5) % Plt Count 219 (130-400) K/uL MPV 10.8 (7.2-11.7) fL Neut % (Auto) 73.2 (50.0-75.0) % Lymph % (Auto) 14.3 L (20.0-40.0) % Sauk % (Auto) 9.8 (0.0-10.0) % Eos % (Auto) 0.9 (0.0-4.0) % Baso % (Auto) 1.8 (0.0-2.0) % Neut # 8.3 H (1.8-7.0) K/uL Lymph # 1.6 (1.0-4.3) K/uL Sauk # 1.1 H (0.0-0.8) K/uL Eos # 0.1 (0.0-0.7) K/uL Baso # 0.2 (0.0-0.2) K/uL PT 14.8 H (9.7-12.2) SECONDS INR 1.3 APTT 29 (21-34) SECONDS Puncture Site pCO2 (35-45) mm/Hg pO2 (80-100) mm/Hg HCO3 (21-28) mmol/L ABG pH (7.35-7.45) ABG Total CO2 (22-28) mmol/L ABG O2 Saturation (95-98) % ABG Base Excess (-2.0-3.0) mmol/L Gael Test ABG Potassium (3.6-5.2) mmol/L A-a O2 Difference mm/Hg Respiratory Index Glucose (65-105) mg/dl Lactate (0.7-2.1) mmol/L Mechanical Rate FiO2 % Tidal Volume PEEP Sodium 135 (132-148) mmol/L Potassium 4.4 (3.6-5.2) mmol/L Chloride 102 (98-107) mmol/L Carbon Dioxide 21 L (22-30) mmol/L Anion Gap 16 (10-20) BUN 18 H (7-17) mg/dL Creatinine 1.1 (0.7-1.2) MG/DL Est GFR ( Amer) 58 Est GFR (Non-Af Amer) 48 POC Glucose (mg/dL) (65-110) mg/dL Random Glucose 131 H (65-105) mg/dL Calcium 8.4 L (8.6-10.4) mg/dl Phosphorus 3.2 (2.5-4.5) mg/dL Magnesium 2.4 H (1.6-2.3) mg/dL Total Bilirubin 1.8 H (0.2-1.3) mg/dL AST 26 (14-36) U/L ALT 24 (9-52) U/L Alkaline Phosphatase 83 (38-126) U/L Total Creatine Kinase (30-135) U/L CK-MB (Mass) (0.0-3.38) ng/mL Troponin I (0.00-0.120) ng/mL NT-Pro-B Natriuret Pep 5210 H (0-900) pg/mL Total Protein 6.6 (6.3-8.3) g/dL Albumin 3.5 (3.5-5.0) g/dL Globulin 3.0 (2.2-3.9) gm/dL Albumin/Globulin Ratio 1.2 (1.0-2.1) Procalcitonin (0.19-0.49) NG/ML TSH 3rd Generation 2.34 (0.46-4.68) mIU/L Arterial Blood Potassium (3.6-5.2) mmol/L 08/03/16 08/03/16 08/02/16 Range/Units 06:09 05:36 23:33 WBC (4.8-10.8) K/uL RBC (3.80-5.20) Mil/uL Hgb (11.0-16.0) g/dL Hct (34.0-47.0) % MCV (81.0-99.0) fL MCH (27.0-31.0) pg MCHC (33.0-37.0) g/dL RDW (11.5-14.5) % Plt Count (130-400) K/uL MPV (7.2-11.7) fL Neut % (Auto) (50.0-75.0) % Lymph % (Auto) (20.0-40.0) % Sauk % (Auto) (0.0-10.0) % Eos % (Auto) (0.0-4.0) % Baso % (Auto) (0.0-2.0) % Neut # (1.8-7.0) K/uL Lymph # (1.0-4.3) K/uL Sauk # (0.0-0.8) K/uL Eos # (0.0-0.7) K/uL Baso # (0.0-0.2) K/uL PT (9.7-12.2) SECONDS INR APTT (21-34) SECONDS Puncture Site Rb pCO2 23 L (35-45) mm/Hg pO2 197 H (80-100) mm/Hg HCO3 22.3 (21-28) mmol/L ABG pH 7.50 H (7.35-7.45) ABG Total CO2 18.6 L (22-28) mmol/L ABG O2 Saturation 99.7 H (95-98) % ABG Base Excess -3.4 L (-2.0-3.0) mmol/L Gael Test Na ABG Potassium 4.2 (3.6-5.2) mmol/L A-a O2 Difference 131.0 mm/Hg Respiratory Index 0.7 Glucose 135 H (65-105) mg/dl Lactate 2.7 H (0.7-2.1) mmol/L Mechanical Rate 14 FiO2 50.0 % Tidal Volume 400 PEEP 5 Sodium 139.0 (132-148) mmol/L Potassium (3.6-5.2) mmol/L Chloride 111.0 H (98-107) mmol/L Carbon Dioxide (22-30) mmol/L Anion Gap (10-20) BUN (7-17) mg/dL Creatinine (0.7-1.2) MG/DL Est GFR ( Amer) Est GFR (Non-Af Amer) POC Glucose (mg/dL) 144 H 127 H (65-110) mg/dL Random Glucose (65-105) mg/dL Calcium (8.6-10.4) mg/dl Phosphorus (2.5-4.5) mg/dL Magnesium (1.6-2.3) mg/dL Total Bilirubin (0.2-1.3) mg/dL AST (14-36) U/L ALT (9-52) U/L Alkaline Phosphatase (38-126) U/L Total Creatine Kinase (30-135) U/L CK-MB (Mass) (0.0-3.38) ng/mL Troponin I (0.00-0.120) ng/mL NT-Pro-B Natriuret Pep (0-900) pg/mL Total Protein (6.3-8.3) g/dL Albumin (3.5-5.0) g/dL Globulin (2.2-3.9) gm/dL Albumin/Globulin Ratio (1.0-2.1) Procalcitonin (0.19-0.49) NG/ML TSH 3rd Generation (0.46-4.68) mIU/L Arterial Blood Potassium 4.2 (3.6-5.2) mmol/L 08/02/16 08/02/16 08/02/16 Range/Units 18:24 13:57 13:57 WBC (4.8-10.8) K/uL RBC (3.80-5.20) Mil/uL Hgb (11.0-16.0) g/dL Hct (34.0-47.0) % MCV (81.0-99.0) fL MCH (27.0-31.0) pg MCHC (33.0-37.0) g/dL RDW (11.5-14.5) % Plt Count (130-400) K/uL MPV (7.2-11.7) fL Neut % (Auto) (50.0-75.0) % Lymph % (Auto) (20.0-40.0) % [place] % (Auto) (0.0-10.0) % Eos % (Auto) (0.0-4.0) % Baso % (Auto) (0.0-2.0) % Neut # (1.8-7.0) K/uL Lymph # (1.0-4.3) K/uL [place] # (0.0-0.8) K/uL Eos # (0.0-0.7) K/uL Baso # (0.0-0.2) K/uL PT (9.7-12.2) SECONDS INR APTT (21-34) SECONDS Puncture Site pCO2 (35-45) mm/Hg pO2 (80-100) mm/Hg HCO3 (21-28) mmol/L ABG pH (7.35-7.45) ABG Total CO2 (22-28) mmol/L ABG O2 Saturation (95-98) % ABG Base Excess (-2.0-3.0) mmol/L Gael Test ABG Potassium (3.6-5.2) mmol/L A-a O2 Difference mm/Hg Respiratory Index Glucose (65-105) mg/dl Lactate (0.7-2.1) mmol/L Mechanical Rate FiO2 % Tidal Volume PEEP Sodium 135 (132-148) mmol/L Potassium 3.8 (3.6-5.2) mmol/L Chloride 101 (98-107) mmol/L Carbon Dioxide 21 L (22-30) mmol/L Anion Gap 17 (10-20) BUN 13 (7-17) mg/dL Creatinine 0.8 (0.7-1.2) MG/DL Est GFR ( Amer) > 60 Est GFR (Non-Af Amer) > 60 POC Glucose (mg/dL) 117 H (65-110) mg/dL Random Glucose 138 H (65-105) mg/dL Calcium 8.2 L (8.6-10.4) mg/dl Phosphorus 3.7 (2.5-4.5) mg/dL Magnesium 2.8 H (1.6-2.3) mg/dL Total Bilirubin 1.5 H (0.2-1.3) mg/dL AST 37 H D (14-36) U/L ALT 25 (9-52) U/L Alkaline Phosphatase 90 (38-126) U/L Total Creatine Kinase 44 (30-135) U/L CK-MB (Mass) 1.25 (0.0-3.38) ng/mL Troponin I 0.0800 (0.00-0.120) ng/mL NT-Pro-B Natriuret Pep (0-900) pg/mL Total Protein 6.8 (6.3-8.3) g/dL Albumin 3.7 (3.5-5.0) g/dL Globulin 3.1 (2.2-3.9) gm/dL Albumin/Globulin Ratio 1.2 (1.0-2.1) Procalcitonin 2.16 H (0.19-0.49) NG/ML TSH 3rd Generation (0.46-4.68) mIU/L Arterial Blood Potassium (3.6-5.2) mmol/L 08/02/16 Range/Units 11:54 WBC (4.8-10.8) K/uL RBC (3.80-5.20) Mil/uL Hgb (11.0-16.0) g/dL Hct (34.0-47.0) % MCV (81.0-99.0) fL MCH (27.0-31.0) pg MCHC (33.0-37.0) g/dL RDW (11.5-14.5) % Plt Count (130-400) K/uL MPV (7.2-11.7) fL Neut % (Auto) (50.0-75.0) % Lymph % (Auto) (20.0-40.0) % [place] % (Auto) (0.0-10.0) % Eos % (Auto) (0.0-4.0) % Baso % (Auto) (0.0-2.0) % Neut # (1.8-7.0) K/uL Lymph # (1.0-4.3) K/uL [place] # (0.0-0.8) K/uL Eos # (0.0-0.7) K/uL Baso # (0.0-0.2) K/uL PT (9.7-12.2) SECONDS INR APTT (21-34) SECONDS Puncture Site pCO2 (35-45) mm/Hg pO2 (80-100) mm/Hg HCO3 (21-28) mmol/L ABG pH (7.35-7.45) ABG Total CO2 (22-28) mmol/L ABG O2 Saturation (95-98) % ABG Base Excess (-2.0-3.0) mmol/L Gael Test ABG Potassium (3.6-5.2) mmol/L A-a O2 Difference mm/Hg Respiratory Index Glucose (65-105) mg/dl Lactate (0.7-2.1) mmol/L Mechanical Rate FiO2 % Tidal Volume PEEP Sodium (132-148) mmol/L Potassium (3.6-5.2) mmol/L Chloride (98-107) mmol/L Carbon Dioxide (22-30) mmol/L Anion Gap (10-20) BUN (7-17) mg/dL Creatinine (0.7-1.2) MG/DL Est GFR ( Amer) Est GFR (Non-Af Amer) POC Glucose (mg/dL) 142 H (65-110) mg/dL Random Glucose (65-105) mg/dL Calcium (8.6-10.4) mg/dl Phosphorus (2.5-4.5) mg/dL Magnesium (1.6-2.3) mg/dL Total Bilirubin (0.2-1.3) mg/dL AST (14-36) U/L ALT (9-52) U/L Alkaline Phosphatase (38-126) U/L Total Creatine Kinase (30-135) U/L CK-MB (Mass) (0.0-3.38) ng/mL Troponin I (0.00-0.120) ng/mL NT-Pro-B Natriuret Pep (0-900) pg/mL Total Protein (6.3-8.3) g/dL Albumin (3.5-5.0) g/dL Globulin (2.2-3.9) gm/dL Albumin/Globulin Ratio (1.0-2.1) Procalcitonin (0.19-0.49) NG/ML TSH 3rd Generation (0.46-4.68) mIU/L Arterial Blood Potassium (3.6-5.2) mmol/L Laboratory Results - last 24 hr 08/02/16 08/02/16 08/02/16 11:54 13:57 13:57 WBC RBC Hgb Hct MCV MCH MCHC RDW Plt Count MPV Neut % (Auto) Lymph % (Auto) [place] % (Auto) Eos % (Auto) Baso % (Auto) Neut # Lymph # [place] # Eos # Baso # PT INR APTT Puncture Site pCO2 pO2 HCO3 ABG pH ABG Total CO2 ABG O2 Saturation ABG Base Excess Gael Test ABG Potassium A-a O2 Difference Respiratory Index Glucose Lactate Mechanical Rate FiO2 Tidal Volume PEEP Sodium 135 Potassium 3.8 Chloride 101 Carbon Dioxide 21 L Anion Gap 17 BUN 13 Creatinine 0.8 Est GFR ( Amer) > 60 Est GFR (Non-Af Amer) > 60 POC Glucose (mg/dL) 142 H Random Glucose 138 H Calcium 8.2 L Phosphorus 3.7 Magnesium 2.8 H Total Bilirubin 1.5 H AST 37 H D ALT 25 Alkaline Phosphatase 90 Total Creatine Kinase 44 CK-MB (Mass) 1.25 Troponin I 0.0800 NT-Pro-B Natriuret Pep Total Protein 6.8 Albumin 3.7 Globulin 3.1 Albumin/Globulin Ratio 1.2 Procalcitonin 2.16 H TSH 3rd Generation Arterial Blood Potassium 08/02/16 08/02/16 08/03/16 18:24 23:33 05:36 WBC RBC Hgb Hct MCV MCH MCHC RDW Plt Count MPV Neut % (Auto) Lymph % (Auto) [place] % (Auto) Eos % (Auto) Baso % (Auto) Neut # Lymph # [place] # Eos # Baso # PT INR APTT Puncture Site Rb pCO2 23 L pO2 197 H HCO3 22.3 ABG pH 7.50 H ABG Total CO2 18.6 L ABG O2 Saturation 99.7 H ABG Base Excess -3.4 L Gael Test Na ABG Potassium 4.2 A-a O2 Difference 131.0 Respiratory Index 0.7 Glucose 135 H Lactate 2.7 H Mechanical Rate 14 FiO2 50.0 Tidal Volume 400 PEEP 5 Sodium 139.0 Potassium Chloride 111.0 H Carbon Dioxide Anion Gap BUN Creatinine Est GFR ( Amer) Est GFR (Non-Af Amer) POC Glucose (mg/dL) 117 H 127 H Random Glucose Calcium Phosphorus Magnesium Total Bilirubin AST ALT Alkaline Phosphatase Total Creatine Kinase CK-MB (Mass) Troponin I NT-Pro-B Natriuret Pep Total Protein Albumin Globulin Albumin/Globulin Ratio Procalcitonin TSH 3rd Generation Arterial Blood Potassium 4.2 08/03/16 08/03/16 08/03/16 06:09 06:23 06:23 WBC 11.3 H RBC 4.13 Hgb 9.3 L Hct 29.6 L MCV 71.5 L MCH 22.6 L MCHC 31.6 L RDW 19.4 H Plt Count 219 MPV 10.8 Neut % (Auto) 73.2 Lymph % (Auto) 14.3 L [place] % (Auto) 9.8 Eos % (Auto) 0.9 Baso % (Auto) 1.8 Neut # 8.3 H Lymph # 1.6 [place]k # 1.1 H Eos # 0.1 Baso # 0.2 PT INR APTT Puncture Site pCO2 pO2 HCO3 ABG pH ABG Total CO2 ABG O2 Saturation ABG Base Excess Gael Test ABG Potassium A-a O2 Difference Respiratory Index Glucose Lactate Mechanical Rate FiO2 Tidal Volume PEEP Sodium 135 Potassium 4.4 Chloride 102 Carbon Dioxide 21 L Anion Gap 16 BUN 18 H Creatinine 1.1 Est GFR ( Amer) 58 Est GFR (Non-Af Amer) 48 POC Glucose (mg/dL) 144 H Random Glucose 131 H Calcium 8.4 L Phosphorus 3.2 Magnesium 2.4 H Total Bilirubin 1.8 H AST 26 ALT 24 Alkaline Phosphatase 83 Total Creatine Kinase CK-MB (Mass) Troponin I NT-Pro-B Natriuret Pep 5210 H Total Protein 6.6 Albumin 3.5 Globulin 3.0 Albumin/Globulin Ratio 1.2 Procalcitonin TSH 3rd Generation 2.34 Arterial Blood Potassium 08/03/16 06:23 WBC RBC Hgb Hct MCV MCH MCHC RDW Plt Count MPV Neut % (Auto) Lymph % (Auto) [place] % (Auto) Eos % (Auto) Baso % (Auto) Neut # Lymph # [place] # Eos # Baso # PT 14.8 H INR 1.3 APTT 29 Puncture Site pCO2 pO2 HCO3 ABG pH ABG Total CO2 ABG O2 Saturation ABG Base Excess Gael Test ABG Potassium A-a O2 Difference Respiratory Index Glucose Lactate Mechanical Rate FiO2 Tidal Volume PEEP Sodium Potassium Chloride Carbon Dioxide Anion Gap BUN Creatinine Est GFR ( Amer) Est GFR (Non-Af Amer) POC Glucose (mg/dL) Random Glucose Calcium Phosphorus Magnesium Total Bilirubin AST ALT Alkaline Phosphatase Total Creatine Kinase CK-MB (Mass) Troponin I NT-Pro-B Natriuret Pep Total Protein Albumin Globulin Albumin/Globulin Ratio Procalcitonin TSH 3rd Generation Arterial Blood Potassium Fingerstick Blood Sugar Results: 144 Review of Systems - Review of Systems Systems not reviewed;Unavailable: Intubated Critical Care Progress Note - Ventilator Checklist Head of Bed 30 Degrees: Yes - Vent Settings MODE:: CPAP PEEP:: 5 PRESSURE SUPPORT:: 15 - Extremities/Vascular Does the Patient have a Central Venous Catheter?: Yes Insertion Site: Internal Jugular Vein (right) Does the Patient need a Central Venous Catheter?: Yes Does the Patient have a Hernandez Catheter?: Yes Does the Patient need a Hernandez Catheter?: Yes Catheter Insertion Criteria: Patient requires prolonged immobilization - Prophylaxis GI Prophylaxis GI: Pepsid - Prophylaxis DVT Prophylaxis DVT: Lovenox - Nutrition Nutrition: Nutrition Category Date Time Status NPO Diet [DIET] Diets 08/02/16 Breakfast Active Assessment/Plan (1) Acute pulmonary edema Current Visit: Yes Status: Acute (2) Ventricular tachycardia Current Visit: Yes Status: Resolved (3) CHF exacerbation Current Visit: No Status: Acute - Assessment and Plan (Free Text) Plan: Patient Status: Intubated and Sedated Central Line Access Right IJ TLC (placed 08/02/16) Neuro: -Intubated and Sedated -Cranial Reflexes Intact Cardiovascular: -CHF acute on chronic exacerbation -Lasix 40 mg IVP daily -Coreg 6.25 mg PO BID -Aspirin 81mg po daily -Plavix 75mg PO daily -08/02/16 ECG: V.tach; LAD; incomplete RBBB, left ventricular hypertrophy -06/25/16 ECHO: Mildly impaired systolic function. EF 40-45%. There is akinesis and thinning of the basal and mid inferior wall and septal wall segments (both anterior and inferior) indicative of prior NH. Left and right atrium moderately dilated. Aortic valve moderately sclerotic. Severe mitral regurgitation. Poor MV leaflet coaptation due to papillary muscle displacement secondary to NH. Moderate tricuspid regurgitation. Pulmonary: -CPAP: 15/5 -Daily CXR/ABG -Acute Pulmonary Edema 2/2 to CHF acute on chronic exacerbation -Albuterol 2.5 mg INH RQ6 prn and Ipratropium 0.5mg administered 08/02/16 for wheezing and acute SOB -ABG- respiratory alkalosis -08/03/16: CO2 23 / O2 197 / HCO3 22.3 / pH 7.50 -08/02/16: CO2 42 / O2 62 / HCO3 18.7 / pH 7.26 -08/02/16: CO2 35 / O2 69 / HCO3 16.7 / pH 7.26 -Possible Pneumonia likely 2/2 aspiration vs Cardiogenic Pulmonary Edema -Zosyn 3.375 gm IV day 2 -Lasix 40 mg IVP daily -Sputum gram stain - many PMNs, but no organisms. Pending sputum culture. -Imaging - 08/03/16 CXR- Endotracheal tube extending into the mid thoracic trachea. Other lines and tubes in stable position. Biapical pleural thickening with upper lobe granulomatous changes. Venous congestion. Small nodular density at the right lung base. Left hilar prominence. Patchy increased markings at the left lung base. Severe levoscoliotic curvature of the lumbar spine. Mild cardiomegaly. Degenerative changes in the spine and shoulders. -08/02/16 CXR: Endotracheal tube extending into the mid thoracic trachea. NG tube extending into the stomach. Multiple additional lines, tubes, and catheters project over the lower chest and upper abdomen, possibly external. Consolidative changes noted throughout the right lung most prominent in the right mid to lower lung zone as well as within the left hilar region and left lung base. Diffuse increased interstitial lung markings. Biapical pleural thickening with upper lobe granulomatous changes. Bilateral hilar prominence. Nodular density at the left lung base may represent prominent nipple shadow. Gastrointestinal: No acute issues. Hematology: -Microcytic anemia likely 2/2 to iron deficiency vs anemia of chronic disease -Ferrous sulfate 300mg PO TID Endocrine: -Random glucose 272 -POC glucose 171 -Sliding Scale Insulin Renal: -Respiratory Alkalosis -Intubated- CPAP 15/5 now -Daily ABG Musculoskeletal: No acute issues Genitourinary: No acute issues Infectious disease: -Leukocytosis -Elevated lactate 2.7 -Zosyn 3.375g IV q6- Day 2 -Sputum gram stain - many PMNs, but no organisms. Pending sputum culture. -08/02/16 Blood Cultures- no growth -08/02/16 Tracheal Aspiration- no growth -08/02/16 Urine Cx- contamination GI prophylaxis: Pepcid 20mg IVP Q12 BLAKE DVT prophylaxis: Heparin 5000 units SC Q8 BLAKE; Clopidogrel 75mg PO daily BLAKE Other prophylaxis: Aspirin 81 mg PO daily BLAKE Case discussed with Dr. Allen Marrero PGY1 - Date & Time Date: 08/03/16 Time: 10:51 <Rustam Villa - Last Filed: 08/03/16 18:11> CCU Subjective - Physician Review Critical Care Time Spent (in minutes): 45 CCU Objective - Vital Signs / Intake & Output Vital Signs (Last 4 hours): Vital Signs Pulse Resp BP Pulse Ox 08/03/16 17:18 78 13 98/43 L 100 08/03/16 16:26 73 18 98/55 L 100 08/03/16 15:24 72 33 H 106/61 100 08/03/16 14:50 76 32 H 110/59 L 100 Intake and Output (Last 8hrs): Intake & Output 08/03/16 08/03/16 08/03/16 06:59 14:59 22:59 Intake Total 348.8 349.4 204.1 Output Total 205 1495 220 Balance 143.8 -1145.6 -15.9 Weight 99 lb 4 oz Intake: IV 62.1 0 Intake, IV Amount 188.8 117.3 104.1 Left External Jugular 133.6 Right Internal Jugular 110.4 104.1 left external jugular 2 55.2 6.9 Tube Feeding 160 170 100 Output: Urine 205 1495 220 Urethral (Hernandez) 205 1495 220 Stool 0 Other: # Bowel Movements 0 1 - Medications Active Medications: Active Medications Generic Name Dose Route Start Last Admin Trade Name Freq PRN Reason Stop Dose Admin Acetaminophen 650 mg 08/02/16 06:47 Tylenol 325mg Tab PO Q6 PRN Fever >100.4 F Albuterol Sulfate 2.5 mg 08/02/16 06:47 08/03/16 13:13 Albuterol 0.083% Inhal Claudia (2.5 Mg/3 Ml) Ud INH 2.5 mg RQ6 PRN Administration Wheezing Aspirin 81 mg 08/02/16 10:00 08/03/16 09:24 Aspirin Chewable PO 81 mg DAILY BLAKE Administration Carvedilol 6.25 mg 08/02/16 10:00 08/03/16 09:23 Coreg PO 6.25 mg BID BLAKE Administration Clopidogrel Bisulfate 75 mg 08/02/16 10:00 08/03/16 09:24 Plavix PO 75 mg DAILY BLAKE Administration Famotidine 20 mg 08/02/16 10:00 08/03/16 09:56 Pepcid IVP 20 mg Q12 BLAKE Administration Ferrous Sulfate 300 mg 08/02/16 10:00 08/03/16 17:23 Feosol Liq PO 300 mg TID BLAKE Administration Furosemide 40 mg 08/02/16 10:00 08/03/16 09:37 Lasix IVP 40 mg DAILY BLAKE Administration Heparin Sodium (Porcine) 5,000 units 08/02/16 14:00 08/03/16 14:36 Heparin SC 5,000 units Q8 BLAKE Administration Propofol 100 mg in 10 mls @ 1.905 mls/hr 08/02/16 06:47 Diprivan IV .Q5H15M PRN TITRATE PER MD ORDER Protocol 5 MCG/KG/MIN Piperacillin Sod/Tazobactam Sod 3.375 gm in 50 mls @ 100 mls/hr 08/02/16 09: 15 08/03/16 14:33 Zosyn 3.375 Gm Iv Premix IVPB 100 mls/hr Q6H BLAKE Administration Propofol 100 mg in 10 mls @ 1.351 mls/hr 08/03/16 16:30 Diprivan IV .Q7H25M BLAKE 5 MCG/KG/MIN Insulin Human Regular 0 unit 08/02/16 12:00 08/03/16 12:03 Novolin R SC Not Given Q6H [facility] Protocol Ipratropium [place] 0.5 mg 08/02/16 06:47 08/03/16 13:13 Atrovent IH 0.5 mg RQ6 PRN Administration Wheezing Magnesium Hydroxide 30 ml 08/02/16 07:57 08/02/16 12:13 Milk Of Magnesia PO 30 ml BID PRN Administration Constipation Midazolam HCl 1 mg 08/02/16 06:52 Versed Inj IVP Q4 PRN Sedation Rosuvastatin Calcium 5 mg 08/02/16 22:00 08/02/16 21:45 Crestor PO 5 mg HS BLAKE Administration Sennosides 8.6 mg 08/02/16 22:00 08/03/16 10:45 Senokot Tab NG 8.6 mg DAILY BLAKE Administration - Patient Studies Lab Studies: Microbiology Studies 08/02/16 Unknown Urine Culture - Final Urine 10-50,000 CFU/ML. MULTIPLE SPECIES. PROBABLE CONTAMINATION. 08/02/16 09:14 Gram Stain - Final Trachasp Lab Studies 08/03/16 08/03/16 08/03/16 Range/Units 17:49 11:52 06:23 WBC (4.8-10.8) K/uL RBC (3.80-5.20) Mil/uL Hgb (11.0-16.0) g/dL Hct (34.0-47.0) % MCV (81.0-99.0) fL MCH (27.0-31.0) pg MCHC (33.0-37.0) g/dL RDW (11.5-14.5) % Plt Count (130-400) K/uL MPV (7.2-11.7) fL Neut % (Auto) (50.0-75.0) % Lymph % (Auto) (20.0-40.0) % [place] % (Auto) (0.0-10.0) % Eos % (Auto) (0.0-4.0) % Baso % (Auto) (0.0-2.0) % Neut # (1.8-7.0) K/uL Lymph # (1.0-4.3) K/uL [place] # (0.0-0.8) K/uL Eos # (0.0-0.7) K/uL Baso # (0.0-0.2) K/uL PT 14.8 H (9.7-12.2) SECONDS INR 1.3 APTT 29 (21-34) SECONDS Puncture Site pCO2 (35-45) mm/Hg pO2 (80-100) mm/Hg HCO3 (21-28) mmol/L ABG pH (7.35-7.45) ABG Total CO2 (22-28) mmol/L ABG O2 Saturation (95-98) % ABG Base Excess (-2.0-3.0) mmol/L Gael Test ABG Potassium (3.6-5.2) mmol/L A-a O2 Difference mm/Hg Respiratory Index Sodium (132-148) mmol/l Chloride (98-107) mmol/L Glucose (65-105) mg/dl Lactate (0.7-2.1) mmol/L Mechanical Rate FiO2 % Tidal Volume PEEP Potassium (3.6-5.2) mmol/L Carbon Dioxide (22-30) mmol/L Anion Gap (10-20) BUN (7-17) mg/dL Creatinine (0.7-1.2) MG/DL Est GFR ( Amer) Est GFR (Non-Af Amer) POC Glucose (mg/dL) 154 H 140 H (65-110) mg/dL Random Glucose (65-105) mg/dL Calcium (8.6-10.4) mg/dl Phosphorus (2.5-4.5) mg/dL Magnesium (1.6-2.3) mg/dL Total Bilirubin (0.2-1.3) mg/dL AST (14-36) U/L ALT (9-52) U/L Alkaline Phosphatase (38-126) U/L NT-Pro-B Natriuret Pep (0-900) pg/mL Total Protein (6.3-8.3) g/dL Albumin (3.5-5.0) g/dL Globulin (2.2-3.9) gm/dL Albumin/Globulin Ratio (1.0-2.1) TSH 3rd Generation (0.46-4.68) mIU/L Arterial Blood Potassium (3.6-5.2) mmol/L 08/03/16 08/03/16 08/03/16 Range/Units 06:23 06:23 06:09 WBC 11.3 H (4.8-10.8) K/uL RBC 4.13 (3.80-5.20) Mil/uL Hgb 9.3 L (11.0-16.0) g/dL Hct 29.6 L (34.0-47.0) % MCV 71.5 L (81.0-99.0) fL MCH 22.6 L (27.0-31.0) pg MCHC 31.6 L (33.0-37.0) g/dL RDW 19.4 H (11.5-14.5) % Plt Count 219 (130-400) K/uL MPV 10.8 (7.2-11.7) fL Neut % (Auto) 73.2 (50.0-75.0) % Lymph % (Auto) 14.3 L (20.0-40.0) % [place] % (Auto) 9.8 (0.0-10.0) % Eos % (Auto) 0.9 (0.0-4.0) % Baso % (Auto) 1.8 (0.0-2.0) % Neut # 8.3 H (1.8-7.0) K/uL Lymph # 1.6 (1.0-4.3) K/uL [place] # 1.1 H (0.0-0.8) K/uL Eos # 0.1 (0.0-0.7) K/uL Baso # 0.2 (0.0-0.2) K/uL PT (9.7-12.2) SECONDS INR APTT (21-34) SECONDS Puncture Site pCO2 (35-45) mm/Hg pO2 (80-100) mm/Hg HCO3 (21-28) mmol/L ABG pH (7.35-7.45) ABG Total CO2 (22-28) mmol/L ABG O2 Saturation (95-98) % ABG Base Excess (-2.0-3.0) mmol/L Gael Test ABG Potassium (3.6-5.2) mmol/L A-a O2 Difference mm/Hg Respiratory Index Sodium 135 (132-148) mmol/l Chloride 102 (98-107) mmol/L Glucose (65-105) mg/dl Lactate (0.7-2.1) mmol/L Mechanical Rate FiO2 % Tidal Volume PEEP Potassium 4.4 (3.6-5.2) mmol/L Carbon Dioxide 21 L (22-30) mmol/L Anion Gap 16 (10-20) BUN 18 H (7-17) mg/dL Creatinine 1.1 (0.7-1.2) MG/DL Est GFR ( Amer) 58 Est GFR (Non-Af Amer) 48 POC Glucose (mg/dL) 144 H (65-110) mg/dL Random Glucose 131 H (65-105) mg/dL Calcium 8.4 L (8.6-10.4) mg/dl Phosphorus 3.2 (2.5-4.5) mg/dL Magnesium 2.4 H (1.6-2.3) mg/dL Total Bilirubin 1.8 H (0.2-1.3) mg/dL AST 26 (14-36) U/L ALT 24 (9-52) U/L Alkaline Phosphatase 83 (38-126) U/L NT-Pro-B Natriuret Pep 5210 H (0-900) pg/mL Total Protein 6.6 (6.3-8.3) g/dL Albumin 3.5 (3.5-5.0) g/dL Globulin 3.0 (2.2-3.9) gm/dL Albumin/Globulin Ratio 1.2 (1.0-2.1) TSH 3rd Generation 2.34 (0.46-4.68) mIU/L Arterial Blood Potassium (3.6-5.2) mmol/L 08/03/16 08/02/16 08/02/16 Range/Units 05:36 23:33 18:24 WBC (4.8-10.8) K/uL RBC (3.80-5.20) Mil/uL Hgb (11.0-16.0) g/dL Hct (34.0-47.0) % MCV (81.0-99.0) fL MCH (27.0-31.0) pg MCHC (33.0-37.0) g/dL RDW (11.5-14.5) % Plt Count (130-400) K/uL MPV (7.2-11.7) fL Neut % (Auto) (50.0-75.0) % Lymph % (Auto) (20.0-40.0) % [place] % (Auto) (0.0-10.0) % Eos % (Auto) (0.0-4.0) % Baso % (Auto) (0.0-2.0) % Neut # (1.8-7.0) K/uL Lymph # (1.0-4.3) K/uL [place] # (0.0-0.8) K/uL Eos # (0.0-0.7) K/uL Baso # (0.0-0.2) K/uL PT (9.7-12.2) SECONDS INR APTT (21-34) SECONDS Puncture Site Rb pCO2 23 L (35-45) mm/Hg pO2 197 H (80-100) mm/Hg HCO3 22.3 (21-28) mmol/L ABG pH 7.50 H (7.35-7.45) ABG Total CO2 18.6 L (22-28) mmol/L ABG O2 Saturation 99.7 H (95-98) % ABG Base Excess -3.4 L (-2.0-3.0) mmol/L Gael Test Na ABG Potassium 4.2 (3.6-5.2) mmol/L A-a O2 Difference 131.0 mm/Hg Respiratory Index 0.7 Sodium 139.0 (132-148) mmol/l Chloride 111.0 H (98-107) mmol/L Glucose 135 H (65-105) mg/dl Lactate 2.7 H (0.7-2.1) mmol/L Mechanical Rate 14 FiO2 50.0 % Tidal Volume 400 PEEP 5 Potassium (3.6-5.2) mmol/L Carbon Dioxide (22-30) mmol/L Anion Gap (10-20) BUN (7-17) mg/dL Creatinine (0.7-1.2) MG/DL Est GFR ( Amer) Est GFR (Non-Af Amer) POC Glucose (mg/dL) 127 H 117 H (65-110) mg/dL Random Glucose (65-105) mg/dL Calcium (8.6-10.4) mg/dl Phosphorus (2.5-4.5) mg/dL Magnesium (1.6-2.3) mg/dL Total Bilirubin (0.2-1.3) mg/dL AST (14-36) U/L ALT (9-52) U/L Alkaline Phosphatase (38-126) U/L NT-Pro-B Natriuret Pep (0-900) pg/mL Total Protein (6.3-8.3) g/dL Albumin (3.5-5.0) g/dL Globulin (2.2-3.9) gm/dL Albumin/Globulin Ratio (1.0-2.1) TSH 3rd Generation (0.46-4.68) mIU/L Arterial Blood Potassium 4.2 (3.6-5.2) mmol/L Laboratory Results - last 24 hr 08/02/16 08/02/16 08/03/16 18:24 23:33 05:36 WBC RBC Hgb Hct MCV MCH MCHC RDW Plt Count MPV Neut % (Auto) Lymph % (Auto) [place] % (Auto) Eos % (Auto) Baso % (Auto) Neut # Lymph # [place] # Eos # Baso # PT INR APTT Puncture Site Rb pCO2 23 L pO2 197 H HCO3 22.3 ABG pH 7.50 H ABG Total CO2 18.6 L ABG O2 Saturation 99.7 H ABG Base Excess -3.4 L Gael Test Na ABG Potassium 4.2 A-a O2 Difference 131.0 Respiratory Index 0.7 Sodium 139.0 Chloride 111.0 H Glucose 135 H Lactate 2.7 H Mechanical Rate 14 FiO2 50.0 Tidal Volume 400 PEEP 5 Potassium Carbon Dioxide Anion Gap BUN Creatinine Est GFR ( Amer) Est GFR (Non-Af Amer) POC Glucose (mg/dL) 117 H 127 H Random Glucose Calcium Phosphorus Magnesium Total Bilirubin AST ALT Alkaline Phosphatase NT-Pro-B Natriuret Pep Total Protein Albumin Globulin Albumin/Globulin Ratio TSH 3rd Generation Arterial Blood Potassium 4.2 08/03/16 08/03/16 08/03/16 06:09 06:23 06:23 WBC 11.3 H RBC 4.13 Hgb 9.3 L Hct 29.6 L MCV 71.5 L MCH 22.6 L MCHC 31.6 L RDW 19.4 H Plt Count 219 MPV 10.8 Neut % (Auto) 73.2 Lymph % (Auto) 14.3 L [place] % (Auto) 9.8 Eos % (Auto) 0.9 Baso % (Auto) 1.8 Neut # 8.3 H Lymph # 1.6 [place] # 1.1 H Eos # 0.1 Baso # 0.2 PT INR APTT Puncture Site pCO2 pO2 HCO3 ABG pH ABG Total CO2 ABG O2 Saturation ABG Base Excess Gael Test ABG Potassium A-a O2 Difference Respiratory Index Sodium 135 Chloride 102 Glucose Lactate Mechanical Rate FiO2 Tidal Volume PEEP Potassium 4.4 Carbon Dioxide 21 L Anion Gap 16 BUN 18 H Creatinine 1.1 Est GFR ( Amer) 58 Est GFR (Non-Af Amer) 48 POC Glucose (mg/dL) 144 H Random Glucose 131 H Calcium 8.4 L Phosphorus 3.2 Magnesium 2.4 H Total Bilirubin 1.8 H AST 26 ALT 24 Alkaline Phosphatase 83 NT-Pro-B Natriuret Pep 5210 H Total Protein 6.6 Albumin 3.5 Globulin 3.0 Albumin/Globulin Ratio 1.2 TSH 3rd Generation 2.34 Arterial Blood Potassium 08/03/16 08/03/16 08/03/16 06:23 11:52 17:49 WBC RBC Hgb Hct MCV MCH MCHC RDW Plt Count MPV Neut % (Auto) Lymph % (Auto) [place] % (Auto) Eos % (Auto) Baso % (Auto) Neut # Lymph # [place] # Eos # Baso # PT 14.8 H INR 1.3 APTT 29 Puncture Site pCO2 pO2 HCO3 ABG pH ABG Total CO2 ABG O2 Saturation ABG Base Excess Gael Test ABG Potassium A-a O2 Difference Respiratory Index Sodium Chloride Glucose Lactate Mechanical Rate FiO2 Tidal Volume PEEP Potassium Carbon Dioxide Anion Gap BUN Creatinine Est GFR ( Amer) Est GFR (Non-Af Amer) POC Glucose (mg/dL) 140 H 154 H Random Glucose Calcium Phosphorus Magnesium Total Bilirubin AST ALT Alkaline Phosphatase NT-Pro-B Natriuret Pep Total Protein Albumin Globulin Albumin/Globulin Ratio TSH 3rd Generation Arterial Blood Potassium Critical Care Progress Note - Nutrition Nutrition: Nutrition Category Date Time Status NPO Diet [DIET] Diets 08/02/16 Breakfast Active Attending/Attestation - Attestation I have personally seen and examined this patient.: Yes I have fully participated in the care of the patient.: Yes I have reviewed all pertinent clinical information: Yes Notes (Text): 08/03/16 18:08 Patient seen and examined in the intensive care unit. Case discussed with STAFF in the morning rounds. Patient tolerated CPAP for a few hours and then put back on PRVC mode for tachypnea Continue antibiotics and diuretics Continue feeding and CPAP trial in the a.m. Repeat echocardiogram showed ejection fraction of 35% which worsens from previous echocardiogram Cardiology evaluation
--- NOTE | 2016-08-03 11:28 | CP.PCM.CON ---
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 Pt is intubated and currently coming off sedation, information collected is from prior medical records. Pt was complaining of shortness of breath at home and called EMS. Upon arrival, patient was found to be in V-tach. Pt was cardioverted at this time. The patient was intubated in the emergency department. The patient was initially placed on Amiodarone drip, but was taken off. Pt remains in A-fib at this time. Complete ROS unable to be obtained at this time due to patient's acute condition. PMH: A-fib, CAD, HTN, DM, COPD, CHF, RA PSH: Cholecystectomy,Right Coronary stent Allergies: moxifloxacin Family hx: Unknown Review of Systems - Review of Systems Systems not reviewed;Unavailable: Intubated Past Patient History - Infectious Disease Hx of Infectious Diseases: None - Tetanus Immunizations Tetanus Immunization: Unknown - Past Medical History & Family History Past Medical History?: Yes - Past Social History Smoking Status: Never Smoked - CARDIAC Hx Atrial Fibrillation: Yes Hx Congestive Heart Failure: Yes Hx Hypercholesterolemia: Yes Hx Hypertension: Yes - PULMONARY Hx Asthma: Yes Hx Chronic Obstructive Pulmonary Disease (COPD): Yes Hx Pneumonia: Yes (08/2015) - NEUROLOGICAL Hx Dementia: Yes - HEENT Hx HEENT Problems: No - RENAL Hx Chronic Kidney Disease: No Hx Kidney Stones: No - ENDOCRINE/METABOLIC Hx Hyperthyroidism: No Hx Hypothyroidism: No - HEMATOLOGICAL/ONCOLOGICAL Hx Anemia: No Hx Human Immunodeficiency Virus (HIV): No Hx Sickle Cell Disease: No - INTEGUMENTARY Hx Dermatological Problems: No - MUSCULOSKELETAL/RHEUMATOLOGICAL Hx Arthritis: Yes Hx Osteoporosis: Yes Hx Rheumatoid Arthritis: Yes - GASTROINTESTINAL Hx Gall Bladder Disease: Yes - GENITOURINARY/GYNECOLOGICAL Hx Sexually Transmitted Disorders: No - PSYCHIATRIC Hx Anxiety: Yes Hx Substance Use: No - SURGICAL HISTORY Hx Cholecystectomy: Yes Hx Coronary Stent: Yes (proximal RCA stent) - ANESTHESIA Hx Anesthesia: Yes Hx Anesthesia Reactions: No Hx Malignant Hyperthermia: No Meds Allergies/Adverse Reactions: Allergies Allergy/AdvReac Type Severity Reaction Status Date / Time moxifloxacin HCl Allergy Severe ANAPHYLAXIS Verified 08/02/16 04:16 [From Avelox] - Medications Medications: Current Medications Acetaminophen (Tylenol 325mg Tab) 650 mg PO Q6 PRN PRN Reason: Fever >100.4 F Albuterol Sulfate (Albuterol 0.083% Inhal Claudia (2.5 Mg/3 Ml) Ud) 2.5 mg INH RQ6 PRN PRN Reason: Wheezing Last Admin: 08/03/16 07:46 Dose: 2.5 mg Aspirin (Aspirin Chewable) 81 mg PO DAILY [facility] Last Admin: 08/03/16 09:24 Dose: 81 mg Carvedilol (Coreg) 6.25 mg PO BID [facility] Last Admin: 08/03/16 09:23 Dose: 6.25 mg Clopidogrel Bisulfate (Plavix) 75 mg PO DAILY [facility] Last Admin: 08/03/16 09:24 Dose: 75 mg Famotidine (Pepcid) 20 mg IVP Q12 [facility] Last Admin: 08/03/16 09:56 Dose: 20 mg Ferrous Sulfate (Feosol Liq) 300 mg PO TID [facility] Last Admin: 08/03/16 09:23 Dose: 300 mg Furosemide (Lasix) 40 mg IVP DAILY [facility] Last Admin: 08/03/16 09:37 Dose: 40 mg Heparin Sodium (Porcine) (Heparin) 5,000 units SC Q8 [facility] Last Admin: 08/03/16 05:47 Dose: 5,000 units Propofol (Diprivan) 1,000 mg in 100 mls @ 1.905 mls/hr IV .Q24H PRN; Protocol; 5 MCG/KG/MIN PRN Reason: TITRATE PER MD ORDER Last Admin: 08/02/16 23:07 Dose: 18.1 mcg/kg/min, 6.9 mls/hr Propofol (Diprivan) 100 mg in 10 mls @ 1.905 mls/hr IV .Q5H15M PRN; Protocol; 5 MCG/KG/MIN PRN Reason: TITRATE PER MD ORDER Piperacillin Sod/Tazobactam Sod (Zosyn 3.375 Gm Iv Premix) 3.375 gm in 50 mls @ 100 mls/hr IVPB Q6H [facility] Last Admin: 08/03/16 09:03 Dose: 100 mls/hr Insulin Human Regular (Novolin R) 0 unit SC Q6H [facility] PRN Reason: Protocol Last Admin: 08/03/16 06:35 Dose: Not Given Ipratropium [place] (Atrovent) 0.5 mg IH RQ6 PRN PRN Reason: Wheezing Last Admin: 08/03/16 07:46 Dose: 0.5 mg Magnesium Hydroxide (Milk Of Magnesia) 30 ml PO BID PRN PRN Reason: Constipation Last Admin: 08/02/16 12:13 Dose: 30 ml Midazolam HCl (Versed Inj) 1 mg IVP Q4 PRN PRN Reason: Sedation Rosuvastatin Calcium (Crestor) 5 mg PO HS [facility] Last Admin: 08/02/16 21:45 Dose: 5 mg Sennosides (Senokot Tab) 8.6 mg NG DAILY [facility] Last Admin: 08/03/16 10:45 Dose: 8.6 mg Physical Exam - Constitutional Appears: Toxic, No Acute Distress - Head Exam Head Exam: ATRAUMATIC, NORMAL INSPECTION, NORMOCEPHALIC - ENT Exam ENT Exam: Mucous Membranes Dry Additional comments: OG tube in place ET tube in place - Respiratory Exam Respiratory Exam: Rales (B/l bases), NORMAL BREATHING PATTERN. absent: Rhonchi - Cardiovascular Exam Cardiovascular Exam: Irregular Rhythm, +S1, +S2 - GI/Abdominal Exam GI & Abdominal Exam: Normal Bowel Sounds, Soft. absent: Tenderness - Extremities Exam Extremities exam: Positive for: normal inspection. Negative for: pedal edema - Neurological Exam Neurological exam: Alert - Skin Skin Exam: Intact, Normal Color, Warm Results - Vital Signs Recent Vital Signs: Last Vital Signs Temp 98.1 F 08/03/16 08:00 Pulse 73 08/03/16 10:03 Resp 30 H 08/03/16 10:03 BP 125/78 08/03/16 10:03 Pulse Ox 100 08/03/16 10:03 - Labs Result Diagrams: 08/03/16 06:23 08/03/16 06:23 Labs: Laboratory Results - last 24 hr 08/02/16 08/02/16 08/02/16 11:54 13:57 13:57 WBC RBC Hgb Hct MCV MCH MCHC RDW Plt Count MPV Neut % (Auto) Lymph % (Auto) [place] % (Auto) Eos % (Auto) Baso % (Auto) Neut # Lymph # [place] # Eos # Baso # PT INR APTT Puncture Site pCO2 pO2 HCO3 ABG pH ABG Total CO2 ABG O2 Saturation ABG Base Excess Gael Test ABG Potassium A-a O2 Difference Respiratory Index Glucose Lactate Mechanical Rate FiO2 Tidal Volume PEEP Sodium 135 Potassium 3.8 Chloride 101 Carbon Dioxide 21 L Anion Gap 17 BUN 13 Creatinine 0.8 Est GFR ( Amer) > 60 Est GFR (Non-Af Amer) > 60 POC Glucose (mg/dL) 142 H Random Glucose 138 H Calcium 8.2 L Phosphorus 3.7 Magnesium 2.8 H Total Bilirubin 1.5 H AST 37 H D ALT 25 Alkaline Phosphatase 90 Total Creatine Kinase 44 CK-MB (Mass) 1.25 Troponin I 0.0800 NT-Pro-B Natriuret Pep Total Protein 6.8 Albumin 3.7 Globulin 3.1 Albumin/Globulin Ratio 1.2 Procalcitonin 2.16 H TSH 3rd Generation Arterial Blood Potassium 08/02/16 08/02/16 08/03/16 18:24 23:33 05:36 WBC RBC Hgb Hct MCV MCH MCHC RDW Plt Count MPV Neut % (Auto) Lymph % (Auto) [place] % (Auto) Eos % (Auto) Baso % (Auto) Neut # Lymph # [place] # Eos # Baso # PT INR APTT Puncture Site Rb pCO2 23 L pO2 197 H HCO3 22.3 ABG pH 7.50 H ABG Total CO2 18.6 L ABG O2 Saturation 99.7 H ABG Base Excess -3.4 L Gael Test Na ABG Potassium 4.2 A-a O2 Difference 131.0 Respiratory Index 0.7 Glucose 135 H Lactate 2.7 H Mechanical Rate 14 FiO2 50.0 Tidal Volume 400 PEEP 5 Sodium 139.0 Potassium Chloride 111.0 H Carbon Dioxide Anion Gap BUN Creatinine Est GFR ( Amer) Est GFR (Non-Af Amer) POC Glucose (mg/dL) 117 H 127 H Random Glucose Calcium Phosphorus Magnesium Total Bilirubin AST ALT Alkaline Phosphatase Total Creatine Kinase CK-MB (Mass) Troponin I NT-Pro-B Natriuret Pep Total Protein Albumin Globulin Albumin/Globulin Ratio Procalcitonin TSH 3rd Generation Arterial Blood Potassium 4.2 08/03/16 08/03/16 08/03/16 06:09 06:23 06:23 WBC 11.3 H RBC 4.13 Hgb 9.3 L Hct 29.6 L MCV 71.5 L MCH 22.6 L MCHC 31.6 L RDW 19.4 H Plt Count 219 MPV 10.8 Neut % (Auto) 73.2 Lymph % (Auto) 14.3 L [place] % (Auto) 9.8 Eos % (Auto) 0.9 Baso % (Auto) 1.8 Neut # 8.3 H Lymph # 1.6 [place] # 1.1 H Eos # 0.1 Baso # 0.2 PT INR APTT Puncture Site pCO2 pO2 HCO3 ABG pH ABG Total CO2 ABG O2 Saturation ABG Base Excess Gael Test ABG Potassium A-a O2 Difference Respiratory Index Glucose Lactate Mechanical Rate FiO2 Tidal Volume PEEP Sodium 135 Potassium 4.4 Chloride 102 Carbon Dioxide 21 L Anion Gap 16 BUN 18 H Creatinine 1.1 Est GFR ( Amer) 58 Est GFR (Non-Af Amer) 48 POC Glucose (mg/dL) 144 H Random Glucose 131 H Calcium 8.4 L Phosphorus 3.2 Magnesium 2.4 H Total Bilirubin 1.8 H AST 26 ALT 24 Alkaline Phosphatase 83 Total Creatine Kinase CK-MB (Mass) Troponin I NT-Pro-B Natriuret Pep 5210 H Total Protein 6.6 Albumin 3.5 Globulin 3.0 Albumin/Globulin Ratio 1.2 Procalcitonin TSH 3rd Generation 2.34 Arterial Blood Potassium 08/03/16 06:23 WBC RBC Hgb Hct MCV MCH MCHC RDW Plt Count MPV Neut % (Auto) Lymph % (Auto) [place] % (Auto) Eos % (Auto) Baso % (Auto) Neut # Lymph # [place] # Eos # Baso # PT 14.8 H INR 1.3 APTT 29 Puncture Site pCO2 pO2 HCO3 ABG pH ABG Total CO2 ABG O2 Saturation ABG Base Excess Gael Test ABG Potassium A-a O2 Difference Respiratory Index Glucose Lactate Mechanical Rate FiO2 Tidal Volume PEEP Sodium Potassium Chloride Carbon Dioxide Anion Gap BUN Creatinine Est GFR ( Amer) Est GFR (Non-Af Amer) POC Glucose (mg/dL) Random Glucose Calcium Phosphorus Magnesium Total Bilirubin AST ALT Alkaline Phosphatase Total Creatine Kinase CK-MB (Mass) Troponin I NT-Pro-B Natriuret Pep Total Protein Albumin Globulin Albumin/Globulin Ratio Procalcitonin TSH 3rd Generation Arterial Blood Potassium Assessment & Plan (1) CHF (congestive heart failure) Assessment and Plan: Pt will need cardiac cath to rule out CAD Continue current medical management Status: Acute (2) Afib Assessment and Plan: Pt initially found in V-tach and cardioverted in field to a-fib. Pt will need EP study and possible ICD placement Status: Acute <Iraida Gustafson A - Last Filed: 08/05/16 09:56> Meds - Medications Medications: Current Medications Acetaminophen (Tylenol 325mg Tab) 650 mg PO Q6 PRN PRN Reason: Fever >100.4 F Albuterol Sulfate (Albuterol 0.083% Inhal Claudia (2.5 Mg/3 Ml) Ud) 2.5 mg INH RQ6 PRN PRN Reason: Wheezing Last Admin: 08/05/16 08:04 Dose: 2.5 mg Aspirin (Aspirin Chewable) 81 mg PO DAILY [facility] Last Admin: 08/05/16 09:06 Dose: 81 mg Carvedilol (Coreg) 6.25 mg PO BID [facility] Last Admin: 08/05/16 09:07 Dose: 6.25 mg Clopidogrel Bisulfate (Plavix) 75 mg PO DAILY [facility] Last Admin: 08/05/16 09:06 Dose: 75 mg Famotidine (Pepcid) 20 mg IVP Q12 [facility] Last Admin: 08/05/16 09:08 Dose: 20 mg Ferrous Sulfate (Feosol Liq) 300 mg PO TID [facility] Last Admin: 08/05/16 09:07 Dose: 300 mg Furosemide (Lasix) 40 mg IVP Q12 [facility] Last Admin: 08/05/16 09:07 Dose: 40 mg Heparin Sodium (Porcine) (Heparin) 5,000 units SC Q12 [facility] Last Admin: 08/05/16 09:07 Dose: 5,000 units Piperacillin Sod/Tazobactam Sod (Zosyn 3.375 Gm Iv Premix) 3.375 gm in 50 mls @ 100 mls/hr IVPB Q6H [facility] Last Admin: 08/05/16 09:08 Dose: 100 mls/hr Sodium Phosphate 15 mmole/ (Sodium Chloride) 255 mls @ 50 mls/hr IVPB .Q5H6M ONE Stop: 08/05/16 11:47 Last Admin: 08/05/16 08:17 Dose: 50 mls/hr Potassium Chloride (Potassium Chloride 20 Meq/100 Ml) 20 meq in 100 mls @ 50 mls/hr IVPB ONCE ONE Stop: 08/05/16 11:59 Last Admin: 08/05/16 09:06 Dose: 50 mls/hr Insulin Human Regular (Novolin R) 0 unit SC Q6H [facility] PRN Reason: Protocol Last Admin: 08/05/16 06:23 Dose: Not Given Ipratropium [place] (Atrovent) 0.5 mg IH RQ6 PRN PRN Reason: Wheezing Last Admin: 08/05/16 08:04 Dose: 0.5 mg Magnesium Hydroxide (Milk Of Magnesia) 30 ml PO BID PRN PRN Reason: Constipation Last Admin: 08/02/16 12:13 Dose: 30 ml Midazolam HCl (Versed Inj) 1 mg IVP Q4 PRN PRN Reason: Sedation Rosuvastatin Calcium (Crestor) 5 mg PO HS [facility] Last Admin: 08/04/16 21:59 Dose: 5 mg Sennosides (Senokot Tab) 8.6 mg NG DAILY [facility] Last Admin: 08/05/16 09:10 Dose: 8.6 mg Results - Vital Signs Recent Vital Signs: Last Vital Signs Temp 97.5 F L 08/05/16 08:00 Pulse 77 08/05/16 08:00 Resp 13 08/05/16 08:00 BP 112/48 L 08/05/16 09:07 Pulse Ox 100 08/05/16 08:00 - Labs Result Diagrams: 08/05/16 06:14 08/05/16 06:14 Labs: Laboratory Results - last 24 hr 08/04/16 08/04/16 08/05/16 11:46 17:54 00:02 WBC RBC Hgb Hct MCV MCH MCHC RDW Plt Count MPV Neut % (Auto) Lymph % (Auto) [place] % (Auto) Eos % (Auto) Baso % (Auto) Neut # Lymph # [place] # Eos # Baso # Neutrophils % (Manual) Band Neutrophils % Lymphocytes % (Manual) Monocytes % (Manual) Eosinophils % (Manual) Basophils % (Manual) Platelet Estimate Large Platelets Giant Platelets Polychromasia Hypochromasia (manual) Poikilocytosis (manual Anisocytosis (manual) Target Cells Ovalocytes Schistocytes PT INR APTT Puncture Site pCO2 pO2 HCO3 ABG pH ABG Total CO2 ABG O2 Saturation ABG Base Excess ABG Hemoglobin ABG Carboxyhemoglobin POC ABG HHb (Measured) ABG Methemoglobin Gael Test A-a O2 Difference Respiratory Index Hgb O2 Saturation Mechanical Rate FiO2 Tidal Volume PEEP Sodium Potassium Chloride Carbon Dioxide Anion Gap BUN Creatinine Est GFR ( Amer) Est GFR (Non-Af Amer) POC Glucose (mg/dL) 171 H 108 133 H Random Glucose Calcium Phosphorus Magnesium Total Bilirubin AST ALT Alkaline Phosphatase Total Protein Albumin Globulin Albumin/Globulin Ratio 08/05/16 08/05/16 08/05/16 05:49 06:14 06:14 WBC 13.6 H RBC 3.86 Hgb 8.8 L Hct 27.7 L MCV 71.6 L MCH 22.8 L MCHC 31.9 L RDW 20.1 H Plt Count 236 MPV 10.3 Neut % (Auto) 73.7 Lymph % (Auto) 9.2 L [place] % (Auto) 9.7 Eos % (Auto) 6.5 H Baso % (Auto) 0.9 Neut # 10.0 H Lymph # 1.2 [place] # 1.3 H Eos # 0.9 H Baso # 0.1 Neutrophils % (Manual) 65 Band Neutrophils % 3 H Lymphocytes % (Manual) 11 L Monocytes % (Manual) 11 H Eosinophils % (Manual) 9 H Basophils % (Manual) 1 Platelet Estimate Normal Large Platelets Present Giant Platelets Present Polychromasia Slight Hypochromasia (manual) Moderate Poikilocytosis (manual Slight Anisocytosis (manual) Moderate Target Cells Slight Ovalocytes Slight Schistocytes Slight PT 13.3 H INR 1.2 APTT 31 D Puncture Site Rb pCO2 37 pO2 106 H HCO3 30.9 H ABG pH 7.53 H ABG Total CO2 32.0 H ABG O2 Saturation 99.0 H ABG Base Excess 7.7 H ABG Hemoglobin 9.2 L ABG Carboxyhemoglobin 1.7 H POC ABG HHb (Measured) 1.0 ABG Methemoglobin 0.8 Gael Test Na A-a O2 Difference 133.0 Respiratory Index 1.3 Hgb O2 Saturation 96.5 Mechanical Rate 12 FiO2 40.0 Tidal Volume 400 PEEP 5 Sodium Potassium Chloride Carbon Dioxide Anion Gap BUN Creatinine Est GFR ( Amer) Est GFR (Non-Af Amer) POC Glucose (mg/dL) Random Glucose Calcium Phosphorus Magnesium Total Bilirubin AST ALT Alkaline Phosphatase Total Protein Albumin Globulin Albumin/Globulin Ratio 08/05/16 08/05/16 06:14 06:18 WBC RBC Hgb Hct MCV MCH MCHC RDW Plt Count MPV Neut % (Auto) Lymph % (Auto) [place] % (Auto) Eos % (Auto) Baso % (Auto) Neut # Lymph # [place] # Eos # Baso # Neutrophils % (Manual) Band Neutrophils % Lymphocytes % (Manual) Monocytes % (Manual) Eosinophils % (Manual) Basophils % (Manual) Platelet Estimate Large Platelets Giant Platelets Polychromasia Hypochromasia (manual) Poikilocytosis (manual Anisocytosis (manual) Target Cells Ovalocytes Schistocytes PT INR APTT Puncture Site pCO2 pO2 HCO3 ABG pH ABG Total CO2 ABG O2 Saturation ABG Base Excess ABG Hemoglobin ABG Carboxyhemoglobin POC ABG HHb (Measured) ABG Methemoglobin Gael Test A-a O2 Difference Respiratory Index Hgb O2 Saturation Mechanical Rate FiO2 Tidal Volume PEEP Sodium 140 Potassium 3.1 L Chloride 97 L Carbon Dioxide 31 H Anion Gap 15 BUN 24 H Creatinine 0.9 Est GFR ( Amer) > 60 Est GFR (Non-Af Amer) 60 POC Glucose (mg/dL) 128 H Random Glucose 114 H Calcium 8.2 L Phosphorus 2.9 Magnesium 2.3 Total Bilirubin 1.2 AST 22 ALT 16 Alkaline Phosphatase 103 Total Protein 7.2 Albumin 3.7 Globulin 3.5 Albumin/Globulin Ratio 1.1 Attending/Attestation - Attestation I have personally seen and examined this patient.: Yes I have fully participated in the care of the patient.: Yes I have reviewed all pertinent clinical information: Yes Notes (Text): 08/05/16 09:55 Pt with dilated cardiomyopathy ef 35 percent sudden cardiac prophylaxis chf
[2016-08-03] MEDS: Propofol 10 mg/ml 100 MG/10 ML VIAL IV SCH (19:24)
[2016-08-04] MEDS: Piperacill/Tazo 3.375gm in Dex 3.375 GM/50 ML BAG IVPB SCH ×4 (02:59→21:30)
[2016-08-04 04:19] LABS: BASO # 0.1 K/uL (0.0-0.2); BASO % 0.8 % (0.0-2.0); EOS # 0.2 K/uL (0.0-0.7); EOS % 1.8 % (0.0-4.0); HEMATOCRIT 26.6 % (34.0-47.0); LYMPH # 1.2 K/uL (1.0-4.3); LYMPH % 8.8 % (20.0-40.0); MEAN CELL VOLUME 70.4 fL (81.0-99.0); MEAN CORPUSCULAR HEMOGLOBIN 22.3 pg (27.0-31.0); MEAN CORPUSCULAR HGB CONC 31.7 g/dL (33.0-37.0); MEAN PLATELET VOLUME 9.3 fL (7.2-11.7); MONO # 1.3 K/uL (0.0-0.8); MONO % 9.7 % (0.0-10.0); NRBC % 0.1 % (0.0-2.0); PLATELET COUNT 198 K/uL (130-400); RED CELL DISTRIBUTION WIDTH 19.5 % (11.5-14.5); WHITE BLOOD COUNT 13.9 K/uL (4.8-10.8)
[2016-08-04 04:28] LABS: CHLORIDE 98 mmol/L (98-107)
[2016-08-04 04:29] LABS: INR 1.4; SODIUM 138 mmol/L (132-148)
[2016-08-04 04:31] LABS: CARBON DIOXIDE 28 mmol/L (22-30); GFR AFRICAN-AMERICAN > 60
[2016-08-04 04:32] LABS: ALB/GLOB RATIO 1.1 (1.0-2.1); ALKALINE PHOSPHATASE 79 U/L (38-126); ALT/SGPT 16 U/L (9-52); AST/SGOT 15 U/L (14-36); BILIRUBIN,TOTAL 1.4 mg/dL (0.2-1.3); BLOOD UREA NITROGEN 18 mg/dL (7-17); CALCIUM 7.7 mg/dl (8.6-10.4); GLUCOSE,RANDOM 132 mg/dL (65-105); PHOSPHOROUS 2.1 mg/dL (2.5-4.5); TOTAL PROTEIN 6.5 g/dL (6.3-8.3)
[2016-08-04 04:33] LABS: MAGNESIUM 2.5 mg/dL (1.6-2.3)
[2016-08-04] MEDS: (Novolin R) Insulin Human Regular 100 units/ml vial SC SCH ×3 (05:35→17:55)
[2016-08-04 05:40] LABS: ABG MECHANICAL RATE 12; ATERIAL BLOOD GAS PEEP 5; DRAW SITE RB
[2016-08-04] MEDS: Propofol 10 mg/ml 100 MG/10 ML VIAL IV SCH ×2 (06:10→07:35)
[2016-08-04 07:08] LABS: EOSINOPHIL 1 % (0-4); NEUTROPHIL 81 % (50-75); TOTAL CELLS COUNTED 100
[2016-08-04] MEDS: Ipratropium 0.02% Inhal Soln (0.5 mg/2.5 ml) UD IH PRN ×3 (08:24→19:22)
[2016-08-04] MEDS: Albuterol 0.083% Inhal Sol (2.5 mg/3 mL) UD INH PRN ×3 (08:24→19:22)
[2016-08-04] MEDS ORDERED: Sodium Phosphate 15 MMOLE in Sodium Chloride 0.9% 250 ML IVPB ONE (08:30)
[2016-08-04] MEDS: Ferrous Sulfate 300 mg/5 mL Liq UD PO SCH ×3 (09:33→17:40)
--- NOTE | 2016-08-04 10:53 | CP.PCM.PN ---
Subjective - Date & Time of Evaluation Date of Evaluation: 08/04/16 Time of Evaluation: 10:47 - Subjective Subjective: Progress Note for Dr. Gustafson Pt seen and examined at bedside. Pt with no acute events overnight as per nursing. Pt remains intubated at this time. Objective - Vital Signs/Intake and Output Vital Signs (last 24 hours): Temp Pulse Resp BP Pulse Ox 98.1 F 70 18 103/53 L 100 08/04/16 00:00 08/04/16 07:23 08/04/16 07:23 08/04/16 09:34 08/04/16 07:23 Intake and Output: 08/04/16 08/04/16 06:59 18:59 Intake Total 685.1 Output Total 430 Balance 255.1 - Medications Medications: Current Medications Acetaminophen (Tylenol 325mg Tab) 650 mg PO Q6 PRN PRN Reason: Fever >100.4 F Albuterol Sulfate (Albuterol 0.083% Inhal Claudia (2.5 Mg/3 Ml) Ud) 2.5 mg INH RQ6 PRN PRN Reason: Wheezing Last Admin: 08/04/16 08:24 Dose: 2.5 mg Aspirin (Aspirin Chewable) 81 mg PO DAILY [facility] Last Admin: 08/04/16 09:34 Dose: 81 mg Carvedilol (Coreg) 6.25 mg PO BID [facility] Last Admin: 08/04/16 09:34 Dose: 6.25 mg Clopidogrel Bisulfate (Plavix) 75 mg PO DAILY [facility] Last Admin: 08/04/16 09:34 Dose: 75 mg Famotidine (Pepcid) 20 mg IVP Q12 [facility] Last Admin: 08/04/16 09:33 Dose: 20 mg Ferrous Sulfate (Feosol Liq) 300 mg PO TID [facility] Last Admin: 08/04/16 09:33 Dose: 300 mg Furosemide (Lasix) 40 mg IVP Q12 [facility] Last Admin: 08/04/16 09:59 Dose: Not Given Heparin Sodium (Porcine) (Heparin) 5,000 units SC Q12 [facility] Piperacillin Sod/Tazobactam Sod (Zosyn 3.375 Gm Iv Premix) 3.375 gm in 50 mls @ 100 mls/hr IVPB Q6H [facility] Last Admin: 08/04/16 09:32 Dose: 100 mls/hr Potassium Chloride (Potassium Chloride 20 Meq/100 Ml) 20 meq in 100 mls @ 50 mls/hr IVPB ONCE ONE Stop: 08/04/16 12:49 Potassium Chloride (Potassium Chloride 20 Meq/100 Ml) 20 meq in 100 mls @ 50 mls/hr IVPB ONCE ONE Stop: 08/04/16 15:49 Sodium Phosphate 15 mmole/ (Sodium Chloride) 255 mls @ 50 mls/hr IVPB .Q5H6M ONE Stop: 08/04/16 13:35 Last Admin: 08/04/16 09:36 Dose: 50 mls/hr Insulin Human Regular (Novolin R) 0 unit SC Q6H [facility] PRN Reason: Protocol Last Admin: 08/04/16 05:35 Dose: Not Given Ipratropium [place] (Atrovent) 0.5 mg IH RQ6 PRN PRN Reason: Wheezing Last Admin: 08/04/16 08:24 Dose: 0.5 mg Magnesium Hydroxide (Milk Of Magnesia) 30 ml PO BID PRN PRN Reason: Constipation Last Admin: 08/02/16 12:13 Dose: 30 ml Midazolam HCl (Versed Inj) 1 mg IVP Q4 PRN PRN Reason: Sedation Rosuvastatin Calcium (Crestor) 5 mg PO HS [facility] Last Admin: 08/03/16 21:41 Dose: 5 mg Sennosides (Senokot Tab) 8.6 mg NG DAILY [facility] Last Admin: 08/04/16 10:02 Dose: 8.6 mg - Labs Labs: 08/04/16 04:16 08/04/16 04:16 PT 15.3 SECONDS (9.7-12.2) H 08/04/16 04:16 INR 1.4 08/04/16 04:16 APTT 41 SECONDS (21-34) H D 08/04/16 04:16 - Constitutional Appears: Toxic, No Acute Distress - Respiratory Exam Respiratory Exam: Clear to Ausculation Bilateral, NORMAL BREATHING PATTERN. absent: Rhonchi - Cardiovascular Exam Cardiovascular Exam: RRR, +S1, +S2 - GI/Abdominal Exam GI & Abdominal Exam: Soft, Normal Bowel Sounds. absent: Tenderness - Extremities Exam Extremities Exam: Normal Inspection. absent: Pedal Edema - Skin Skin Exam: Intact, Normal Color, Warm Assessment and Plan (1) CHF (congestive heart failure) Assessment & Plan: Pt will likely need cardiac cath to evaluate for CAD Echocardiogram with EF 35%, akinetic and dyskinetic Continue current medical management Status: Acute (2) Afib Assessment & Plan: Pt remains rate controlled in A-fib Will need EPS and possible ICD. Status: Acute
--- NOTE | 2016-08-04 10:57 | HP ---
An 81-year-old female history of heart failure, coronary artery disease, and chief complains of short ness of breath, weakness. The patient was found to be in pulmonary edema. Advised admission to the [facility]. The patient is ex-smoker. The patient has COPD and anxiety disorder, chronic pain syndrome. The patient is sedated. Temperature 98. __. NECK: Supple. CHEST: Symmetrical HEART: Regular. ABDOMEN: Soft. EXTREMITIES: No edema. The patient suffers from pulmonary edema. The patient on bedrest, supportive care, ventilator. Gisselle Vogel MD cc: [id number] TT: 08/03/2016 11:18:43 jn 08/04/2016 09:55:22
--- NOTE | 2016-08-04 12:11 | CARD ---
APPROVED REPORT EKG Measurement Heart [id number] <Conclusion> Undetermined rhythm Left axis deviation Incomplete right bundle branch block Left ventricular hypertrophy with repolarization abnormality Inferior infarct, age undetermined Abnormal ECG
--- NOTE | 2016-08-04 12:25 | CP.CCUPN ---
<Les Marrero - Last Filed: 08/04/16 12:21> CCU Subjective - Physician Review Subjective (Free Text): 08/03/16 13:35 Patient seen and examined at bedside. No acute distress. No acute events overnight. Nursing staff reports no issues. Patient remains on PRVC (Tv 370, Rate 12, PEEP 5, FiO2 40%). Patient tolerated placement of right IJ TLC. The patient's lactate remains high at 2.7. Today on rounds, the patient's vent setting were change to TV 370mL and rate of 12/min due to respiratory alkalosis. Cardiology was consulted due to continued downward trend of LVEF on ECHO (most recently 35%). Post-Rounds, patient was switched to CPAP 18/5 which was subsequently reduced to 15/5. Patient is tolerating CPAP well. 08/04/16 12:21 Patient seen and examined at bedside. No acute distress. No acute events overnight. Nursing staff reports no issues. The patient tolerated her time on CPAP well yesterday. The patient will be trialed on CPAP again today. She is currently tolerating CPAP 10/5 at 40% FiO2. Today on rounds, the patient's propofol was discontinued, her lasix was changed to q12 from daily, and her heparin was changed to q12 from q8. The patient responds appropriately to questions now that the sedation has been discontinued. The patient's potassium and phosphorous were also replaced. Critical Care Time Spent (in minutes): 90 CCU Objective - Vital Signs / Intake & Output Vital Signs (Last 4 hours): Vital Signs Pulse Resp BP Pulse Ox 08/04/16 11:24 72 33 H 91/56 L 100 08/04/16 11:00 71 32 H 100 08/04/16 10:24 80 30 H 104/63 100 08/04/16 10:04 79 22 113/69 100 08/04/16 10:00 78 22 100 08/04/16 09:34 103/53 L 08/04/16 09:23 75 15 103/53 L 100 08/04/16 09:00 74 14 100 08/04/16 08:23 71 12 95/52 L 100 Intake and Output (Last 8hrs): Intake & Output 08/03/16 08/04/16 08/04/16 22:59 06:59 14:59 Intake Total 494.6 438.7 556.1 Output Total 565 235 725 Balance -70.4 203.7 -168.9 Weight 43.5 kg Intake: IV 0 Intake, IV Amount 174.6 78.7 331.1 Left External Jugular 200 Right Internal Jugular 124.6 28.7 6.1 left external jugular 2 50 50 125.0 Tube Feeding 320 360 225 Output: Urine 565 235 725 Urethral (Hernandez) 565 235 725 Other: # Bowel Movements 0 0 - Physical Exam Head: Positive for: Atraumatic, Normocephalic, Other (et tube in place) Mouth: Positive for: Moist Mucous Membranes. Negative for: Drooling Neck: Negative for: JVD, Lymphadenopathy Respiratory/Chest: Positive for: Clear to Auscultation, Good Air Exchange. Negative for: Respiratory Distress, Accessory Muscle Use, Wheezes, Rales, Rhonchi Cardiovascular: Positive for: Regular Rate and Rhythm, Normal S1, S2, Peripheal Pulses Present. Negative for: Murmurs Abdomen: Positive for: Normal Bowel Sounds. Negative for: Tenderness, Distention, Peritoneal Signs, Rebound, Guarding Upper Extremity: Positive for: Normal Inspection, NORMAL PULSES. Negative for: Cyanosis, Edema Lower Extremity: Positive for: Normal Inspection, NORMAL PULSES. Negative for: Edema, CALF TENDERNESS Skin: Positive for: Warm, Dry, Normal Color. Negative for: Rashes Psychiatric: Positive for: Alert - Medications Active Medications: Active Medications Generic Name Dose Route Start Last Admin Trade Name Freq PRN Reason Stop Dose Admin Acetaminophen 650 mg 08/02/16 06:47 Tylenol 325mg Tab PO Q6 PRN Fever >100.4 F Albuterol Sulfate 2.5 mg 08/02/16 06:47 08/04/16 08:24 Albuterol 0.083% Inhal Claudia (2.5 Mg/3 Ml) Ud INH 2.5 mg RQ6 PRN Administration Wheezing Aspirin 81 mg 08/02/16 10:00 08/04/16 09:34 Aspirin Chewable PO 81 mg DAILY BLAKE Administration Carvedilol 6.25 mg 08/02/16 10:00 08/04/16 09:34 Coreg PO 6.25 mg BID BLAKE Administration Clopidogrel Bisulfate 75 mg 08/02/16 10:00 08/04/16 09:34 Plavix PO 75 mg DAILY BLAKE Administration Famotidine 20 mg 08/02/16 10:00 08/04/16 09:33 Pepcid IVP 20 mg Q12 BLAKE Administration Ferrous Sulfate 300 mg 08/02/16 10:00 08/04/16 09:33 Feosol Liq PO 300 mg TID BLAKE Administration Furosemide 40 mg 08/04/16 10:00 08/04/16 09:59 Lasix IVP Not Given Q12 [facility] Heparin Sodium (Porcine) 5,000 units 08/04/16 10:00 08/04/16 11:09 Heparin SC Not Given Q12 [facility] Piperacillin Sod/Tazobactam Sod 3.375 gm in 50 mls @ 100 mls/hr 08/02/16 09: 15 08/04/16 09:32 Zosyn 3.375 Gm Iv Premix IVPB 100 mls/hr Q6H BLAKE Administration Potassium Chloride 20 meq in 100 mls @ 50 mls/hr 08/04/16 10:50 08/04/16 11: 07 Potassium Chloride 20 Meq/100 Ml IVPB 08/04/16 12:49 50 mls/hr ONCE ONE Administration Potassium Chloride 20 meq in 100 mls @ 50 mls/hr 08/04/16 13:50 Potassium Chloride 20 Meq/100 Ml IVPB 08/04/16 15:49 ONCE ONE Sodium Phosphate 15 mmole/ 255 mls @ 50 mls/hr 08/04/16 08:30 08/04/16 09:36 Sodium Chloride IVPB 08/04/16 13:35 50 mls/hr .Q5H6M ONE Administration Insulin Human Regular 0 unit 08/02/16 12:00 08/04/16 12:16 Novolin R SC 2 unit Q6H BLAKE Administration Protocol Ipratropium [place] 0.5 mg 08/02/16 06:47 08/04/16 08:24 Atrovent IH 0.5 mg RQ6 PRN Administration Wheezing Magnesium Hydroxide 30 ml 08/02/16 07:57 08/02/16 12:13 Milk Of Magnesia PO 30 ml BID PRN Administration Constipation Midazolam HCl 1 mg 08/02/16 06:52 Versed Inj IVP Q4 PRN Sedation Rosuvastatin Calcium 5 mg 08/02/16 22:00 08/03/16 21:41 Crestor PO 5 mg HS BLAKE Administration Sennosides 8.6 mg 08/02/16 22:00 08/04/16 10:02 Senokot Tab NG 8.6 mg DAILY BLAKE Administration - Patient Studies Lab Studies: Microbiology Studies 08/02/16 Unknown MRSA Culture (Admit) - Final Naris MRSA NOT DETECTED 08/02/16 Unknown Urine Culture - Final Urine 10-50,000 CFU/ML. MULTIPLE SPECIES. PROBABLE CONTAMINATION. Lab Studies 08/04/16 08/04/16 08/04/16 Range/Units 11:46 05:27 04:16 WBC (4.8-10.8) K/uL RBC (3.80-5.20) Mil/uL Hgb (11.0-16.0) g/dL Hct (34.0-47.0) % MCV (81.0-99.0) fL MCH (27.0-31.0) pg MCHC (33.0-37.0) g/dL RDW (11.5-14.5) % Plt Count (130-400) K/uL MPV (7.2-11.7) fL Neut % (Auto) (50.0-75.0) % Lymph % (Auto) (20.0-40.0) % [place] % (Auto) (0.0-10.0) % Eos % (Auto) (0.0-4.0) % Baso % (Auto) (0.0-2.0) % Neut # (1.8-7.0) K/uL Lymph # (1.0-4.3) K/uL [place] # (0.0-0.8) K/uL Eos # (0.0-0.7) K/uL Baso # (0.0-0.2) K/uL Neutrophils % (Manual) (50-75) % Lymphocytes % (Manual) (20-40) % Monocytes % (Manual) (0-10) % Eosinophils % (Manual) (0-4) % Platelet Estimate (NORMAL) Hypochromasia (manual) Poikilocytosis (manual Anisocytosis (manual) Target Cells PT (9.7-12.2) SECONDS INR APTT (21-34) SECONDS Puncture Site Rb pCO2 29 L (35-45) mm/Hg pO2 93 (80-100) mm/Hg HCO3 30.1 H (21-28) mmol/L ABG pH 7.59 H (7.35-7.45) ABG Total CO2 28.7 H (22-28) mmol/L ABG O2 Saturation 99.0 H (95-98) % ABG Base Excess 6.6 H (-2.0-3.0) mmol/L Gael Test Na ABG Potassium 2.9 L (3.6-5.2) mmol/L A-a O2 Difference 156.0 mm/Hg Respiratory Index 1.7 Glucose 116 H (65-105) mg/dl Lactate 1.5 (0.7-2.1) mmol/L Mechanical Rate 12 FiO2 40.0 % Tidal Volume 400 PEEP 5 Sodium 139.0 138 (132-148) mmol/L Potassium 3.0 L (3.6-5.2) mmol/L Chloride 109.0 H 98 (98-107) mmol/L Carbon Dioxide 28 (22-30) mmol/L Anion Gap 15 (10-20) BUN 18 H (7-17) mg/dL Creatinine 0.9 (0.7-1.2) MG/DL Est GFR ( Amer) > 60 Est GFR (Non-Af Amer) 60 POC Glucose (mg/dL) 171 H (65-110) mg/dL Random Glucose 132 H (65-105) mg/dL Calcium 7.7 L (8.6-10.4) mg/dl Phosphorus 2.1 L (2.5-4.5) mg/dL Magnesium 2.5 H (1.6-2.3) mg/dL Total Bilirubin 1.4 H (0.2-1.3) mg/dL AST 15 (14-36) U/L ALT 16 (9-52) U/L Alkaline Phosphatase 79 (38-126) U/L Total Protein 6.5 (6.3-8.3) g/dL Albumin 3.3 L (3.5-5.0) g/dL Globulin 3.1 (2.2-3.9) gm/dL Albumin/Globulin Ratio 1.1 (1.0-2.1) Arterial Blood Potassium 2.9 L (3.6-5.2) mmol/L 08/04/16 08/04/16 08/03/16 Range/Units 04:16 04:16 23:48 WBC 13.9 H (4.8-10.8) K/uL RBC 3.78 L (3.80-5.20) Mil/uL Hgb 8.4 L (11.0-16.0) g/dL Hct 26.6 L (34.0-47.0) % MCV 70.4 L (81.0-99.0) fL MCH 22.3 L (27.0-31.0) pg MCHC 31.7 L (33.0-37.0) g/dL RDW 19.5 H (11.5-14.5) % Plt Count 198 (130-400) K/uL MPV 9.3 (7.2-11.7) fL Neut % (Auto) 78.9 H (50.0-75.0) % Lymph % (Auto) 8.8 L (20.0-40.0) % [place] % (Auto) 9.7 (0.0-10.0) % Eos % (Auto) 1.8 (0.0-4.0) % Baso % (Auto) 0.8 (0.0-2.0) % Neut # 11.0 H (1.8-7.0) K/uL Lymph # 1.2 (1.0-4.3) K/uL [place] # 1.3 H (0.0-0.8) K/uL Eos # 0.2 (0.0-0.7) K/uL Baso # 0.1 (0.0-0.2) K/uL Neutrophils % (Manual) 81 H (50-75) % Lymphocytes % (Manual) 9 L (20-40) % Monocytes % (Manual) 9 (0-10) % Eosinophils % (Manual) 1 (0-4) % Platelet Estimate Normal (NORMAL) Hypochromasia (manual) Slight Poikilocytosis (manual Slight Anisocytosis (manual) Moderate Target Cells Slight PT 15.3 H (9.7-12.2) SECONDS INR 1.4 APTT 41 H D (21-34) SECONDS Puncture Site pCO2 (35-45) mm/Hg pO2 (80-100) mm/Hg HCO3 (21-28) mmol/L ABG pH (7.35-7.45) ABG Total CO2 (22-28) mmol/L ABG O2 Saturation (95-98) % ABG Base Excess (-2.0-3.0) mmol/L Gael Test ABG Potassium (3.6-5.2) mmol/L A-a O2 Difference mm/Hg Respiratory Index Glucose (65-105) mg/dl Lactate (0.7-2.1) mmol/L Mechanical Rate FiO2 % Tidal Volume PEEP Sodium (132-148) mmol/L Potassium (3.6-5.2) mmol/L Chloride (98-107) mmol/L Carbon Dioxide (22-30) mmol/L Anion Gap (10-20) BUN (7-17) mg/dL Creatinine (0.7-1.2) MG/DL Est GFR ( Amer) Est GFR (Non-Af Amer) POC Glucose (mg/dL) 133 H (65-110) mg/dL Random Glucose (65-105) mg/dL Calcium (8.6-10.4) mg/dl Phosphorus (2.5-4.5) mg/dL Magnesium (1.6-2.3) mg/dL Total Bilirubin (0.2-1.3) mg/dL AST (14-36) U/L ALT (9-52) U/L Alkaline Phosphatase (38-126) U/L Total Protein (6.3-8.3) g/dL Albumin (3.5-5.0) g/dL Globulin (2.2-3.9) gm/dL Albumin/Globulin Ratio (1.0-2.1) Arterial Blood Potassium (3.6-5.2) mmol/L 08/03/16 Range/Units 17:49 WBC (4.8-10.8) K/uL RBC (3.80-5.20) Mil/uL Hgb (11.0-16.0) g/dL Hct (34.0-47.0) % MCV (81.0-99.0) fL MCH (27.0-31.0) pg MCHC (33.0-37.0) g/dL RDW (11.5-14.5) % Plt Count (130-400) K/uL MPV (7.2-11.7) fL Neut % (Auto) (50.0-75.0) % Lymph % (Auto) (20.0-40.0) % [place] % (Auto) (0.0-10.0) % Eos % (Auto) (0.0-4.0) % Baso % (Auto) (0.0-2.0) % Neut # (1.8-7.0) K/uL Lymph # (1.0-4.3) K/uL [place] # (0.0-0.8) K/uL Eos # (0.0-0.7) K/uL Baso # (0.0-0.2) K/uL Neutrophils % (Manual) (50-75) % Lymphocytes % (Manual) (20-40) % Monocytes % (Manual) (0-10) % Eosinophils % (Manual) (0-4) % Platelet Estimate (NORMAL) Hypochromasia (manual) Poikilocytosis (manual Anisocytosis (manual) Target Cells PT (9.7-12.2) SECONDS INR APTT (21-34) SECONDS Puncture Site pCO2 (35-45) mm/Hg pO2 (80-100) mm/Hg HCO3 (21-28) mmol/L ABG pH (7.35-7.45) ABG Total CO2 (22-28) mmol/L ABG O2 Saturation (95-98) % ABG Base Excess (-2.0-3.0) mmol/L Gael Test ABG Potassium (3.6-5.2) mmol/L A-a O2 Difference mm/Hg Respiratory Index Glucose (65-105) mg/dl Lactate (0.7-2.1) mmol/L Mechanical Rate FiO2 % Tidal Volume PEEP Sodium (132-148) mmol/L Potassium (3.6-5.2) mmol/L Chloride (98-107) mmol/L Carbon Dioxide (22-30) mmol/L Anion Gap (10-20) BUN (7-17) mg/dL Creatinine (0.7-1.2) MG/DL Est GFR ( Amer) Est GFR (Non-Af Amer) POC Glucose (mg/dL) 154 H (65-110) mg/dL Random Glucose (65-105) mg/dL Calcium (8.6-10.4) mg/dl Phosphorus (2.5-4.5) mg/dL Magnesium (1.6-2.3) mg/dL Total Bilirubin (0.2-1.3) mg/dL AST (14-36) U/L ALT (9-52) U/L Alkaline Phosphatase (38-126) U/L Total Protein (6.3-8.3) g/dL Albumin (3.5-5.0) g/dL Globulin (2.2-3.9) gm/dL Albumin/Globulin Ratio (1.0-2.1) Arterial Blood Potassium (3.6-5.2) mmol/L Laboratory Results - last 24 hr 08/03/16 08/03/16 08/04/16 17:49 23:48 04:16 WBC 13.9 H RBC 3.78 L Hgb 8.4 L Hct 26.6 L MCV 70.4 L MCH 22.3 L MCHC 31.7 L RDW 19.5 H Plt Count 198 MPV 9.3 Neut % (Auto) 78.9 H Lymph % (Auto) 8.8 L [place] % (Auto) 9.7 Eos % (Auto) 1.8 Baso % (Auto) 0.8 Neut # 11.0 H Lymph # 1.2 [place] # 1.3 H Eos # 0.2 Baso # 0.1 Neutrophils % (Manual) 81 H Lymphocytes % (Manual) 9 L Monocytes % (Manual) 9 Eosinophils % (Manual) 1 Platelet Estimate Normal Hypochromasia (manual) Slight Poikilocytosis (manual Slight Anisocytosis (manual) Moderate Target Cells Slight PT INR APTT Puncture Site pCO2 pO2 HCO3 ABG pH ABG Total CO2 ABG O2 Saturation ABG Base Excess Gael Test ABG Potassium A-a O2 Difference Respiratory Index Glucose Lactate Mechanical Rate FiO2 Tidal Volume PEEP Sodium Potassium Chloride Carbon Dioxide Anion Gap BUN Creatinine Est GFR ( Amer) Est GFR (Non-Af Amer) POC Glucose (mg/dL) 154 H 133 H Random Glucose Calcium Phosphorus Magnesium Total Bilirubin AST ALT Alkaline Phosphatase Total Protein Albumin Globulin Albumin/Globulin Ratio Arterial Blood Potassium 08/04/16 08/04/16 08/04/16 04:16 04:16 05:27 WBC RBC Hgb Hct MCV MCH MCHC RDW Plt Count MPV Neut % (Auto) Lymph % (Auto) [place] % (Auto) Eos % (Auto) Baso % (Auto) Neut # Lymph # [place] # Eos # Baso # Neutrophils % (Manual) Lymphocytes % (Manual) Monocytes % (Manual) Eosinophils % (Manual) Platelet Estimate Hypochromasia (manual) Poikilocytosis (manual Anisocytosis (manual) Target Cells PT 15.3 H INR 1.4 APTT 41 H D Puncture Site Rb pCO2 29 L pO2 93 HCO3 30.1 H ABG pH 7.59 H ABG Total CO2 28.7 H ABG O2 Saturation 99.0 H ABG Base Excess 6.6 H Gael Test Na ABG Potassium 2.9 L A-a O2 Difference 156.0 Respiratory Index 1.7 Glucose 116 H Lactate 1.5 Mechanical Rate 12 FiO2 40.0 Tidal Volume 400 PEEP 5 Sodium 138 139.0 Potassium 3.0 L Chloride 98 109.0 H Carbon Dioxide 28 Anion Gap 15 BUN 18 H Creatinine 0.9 Est GFR ( Amer) > 60 Est GFR (Non-Af Amer) 60 POC Glucose (mg/dL) Random Glucose 132 H Calcium 7.7 L Phosphorus 2.1 L Magnesium 2.5 H Total Bilirubin 1.4 H AST 15 ALT 16 Alkaline Phosphatase 79 Total Protein 6.5 Albumin 3.3 L Globulin 3.1 Albumin/Globulin Ratio 1.1 Arterial Blood Potassium 2.9 L 08/04/16 11:46 WBC RBC Hgb Hct MCV MCH MCHC RDW Plt Count MPV Neut % (Auto) Lymph % (Auto) [place] % (Auto) Eos % (Auto) Baso % (Auto) Neut # Lymph # [place] # Eos # Baso # Neutrophils % (Manual) Lymphocytes % (Manual) Monocytes % (Manual) Eosinophils % (Manual) Platelet Estimate Hypochromasia (manual) Poikilocytosis (manual Anisocytosis (manual) Target Cells PT INR APTT Puncture Site pCO2 pO2 HCO3 ABG pH ABG Total CO2 ABG O2 Saturation ABG Base Excess Gael Test ABG Potassium A-a O2 Difference Respiratory Index Glucose Lactate Mechanical Rate FiO2 Tidal Volume PEEP Sodium Potassium Chloride Carbon Dioxide Anion Gap BUN Creatinine Est GFR ( Amer) Est GFR (Non-Af Amer) POC Glucose (mg/dL) 171 H Random Glucose Calcium Phosphorus Magnesium Total Bilirubin AST ALT Alkaline Phosphatase Total Protein Albumin Globulin Albumin/Globulin Ratio Arterial Blood Potassium Fingerstick Blood Sugar Results: 171 Review of Systems - Review of Systems Systems not reviewed;Unavailable: Intubated Critical Care Progress Note - Ventilator Checklist Head of Bed 30 Degrees: Yes - Vent Settings MODE:: CPAP FIO2:: 40 PEEP:: 5 PRESSURE SUPPORT:: 10 - Extremities/Vascular Does the Patient have a Central Venous Catheter?: Yes Insertion Site: RIGHT Does the Patient need a Central Venous Catheter?: Yes Does the Patient have a Hernandez Catheter?: Yes Does the Patient need a Hernandez Catheter?: Yes Catheter Insertion Criteria: Patient requires prolonged immobilization - Prophylaxis GI Prophylaxis GI: Pepsid - Prophylaxis DVT Prophylaxis DVT: Lovenox - Nutrition Nutrition: Nutrition Category Date Time Status NPO Diet [DIET] Diets 08/02/16 Breakfast Active Assessment/Plan (1) Systolic congestive heart failure, NYHA class 3 Current Visit: Yes Status: Chronic (2) Acute pulmonary edema Current Visit: Yes Status: Acute (3) Ventricular tachycardia Current Visit: Yes Status: Resolved (4) CHF exacerbation Current Visit: No Status: Acute (5) Acute respiratory failure with hypoxia and hypercarbia Current Visit: Yes Status: Acute (6) Ventilator dependent Current Visit: Yes Status: Acute (7) Respiratory failure requiring intubation Current Visit: Yes Status: Acute - Assessment and Plan (Free Text) Plan: Patient Status: Intubated and Sedated Central Line Access Right IJ TLC (placed 08/02/16) Neuro: -Intubated -Sedation DC -Cranial Reflexes Intact Cardiovascular: -Lasix 40 mg IVP q12 -Coreg 6.25 mg PO BID -Aspirin 81mg po daily -Plavix 75mg PO daily -08/02/16 ECG: V.tach; LAD; incomplete RBBB, left ventricular hypertrophy -06/25/16 ECHO: Mildly impaired systolic function. EF 40-45%. There is akinesis and thinning of the basal and mid inferior wall and septal wall segments (both anterior and inferior) indicative of prior ME. Left and right atrium moderately dilated. Aortic valve moderately sclerotic. Severe mitral regurgitation. Poor MV leaflet coaptation due to papillary muscle displacement secondary to ME. Moderate tricuspid regurgitation. Pulmonary: -CPAP: 10/5, 40% FiO2 -Daily CXR/ABG -Albuterol 2.5 mg INH RQ6 prn and Ipratropium 0.5mg -ABG- respiratory alkalosis -08/04/16: CO2 29 / O2 93 / HCO3 30.1 / pH 7.59 -08/03/16: CO2 23 / O2 197 / HCO3 22.3 / pH 7.50 -08/02/16: CO2 42 / O2 62 / HCO3 18.7 / pH 7.26 -08/02/16: CO2 35 / O2 69 / HCO3 16.7 / pH 7.26 -Possible Pneumonia likely 2/2 aspiration vs Cardiogenic Pulmonary Edema -Zosyn 3.375 gm IV day 2 -Lasix 40 mg IVP daily -Sputum gram stain - many PMNs, but no organisms, culture negative -Imaging - 08/04/16 CXR- Stable position of ET tube, central line, and NG tube- official read pending - 08/03/16 CXR- Endotracheal tube extending into the mid thoracic trachea. Other lines and tubes in stable position. Biapical pleural thickening with upper lobe granulomatous changes. Venous congestion. Small nodular density at the right lung base. Left hilar prominence. Patchy increased markings at the left lung base. Severe levoscoliotic curvature of the lumbar spine. Mild cardiomegaly. Degenerative changes in the spine and shoulders. -08/02/16 CXR: Endotracheal tube extending into the mid thoracic trachea. NG tube extending into the stomach. Multiple additional lines, tubes, and catheters project over the lower chest and upper abdomen, possibly external. Consolidative changes noted throughout the right lung most prominent in the right mid to lower lung zone as well as within the left hilar region and left lung base. Diffuse increased interstitial lung markings. Biapical pleural thickening with upper lobe granulomatous changes. Bilateral hilar prominence. Nodular density at the left lung base may represent prominent nipple shadow. Gastrointestinal: -tube feeding with diabetisource (goal 45ml/hr) Hematology: -Microcytic anemia likely 2/2 to iron deficiency vs anemia of chronic disease -Ferrous sulfate 300mg PO TID -No acute issues Endocrine: -Sliding Scale Insulin Renal: -Respiratory Alkalosis -Intubated- CPAP 10/5 40% FiO2 -Daily ABG Musculoskeletal: -No acute issues Genitourinary: Continue Hernandez Infectious disease: -Leukocytosis -Elevated lactate 2.7 -Zosyn 3.375g IV q6- Day 3 -08/02/16 Blood Cultures- no growth -08/02/16 Tracheal Aspiration- no growth -08/02/16 Urine Cx- contamination GI prophylaxis: Pepcid 20mg IVP Q12 BLAKE DVT prophylaxis: Heparin 5000 units SC Q12 [facility]; Clopidogrel 75mg PO daily [facility] Other prophylaxis: Aspirin 81 mg PO daily [facility] Case discussed with Dr.Wettimuny Chuy Marrero PGY1 - Date & Time Date: 08/04/16 Time: 12:29 <Thomas Ayala - Last Filed: 08/04/16 14:12> CCU Objective - Vital Signs / Intake & Output Vital Signs (Last 4 hours): Vital Signs Temp Pulse Resp BP Pulse Ox 08/04/16 13:23 77 26 H 110/58 L 100 08/04/16 13:00 78 25 H 100 08/04/16 12:23 75 21 103/52 L 100 08/04/16 12:00 98.3 F 78 34 H 100 08/04/16 11:24 72 33 H 91/56 L 100 08/04/16 11:00 71 32 H 100 08/04/16 10:24 80 30 H 104/63 100 Intake and Output (Last 8hrs): Intake & Output 08/03/16 08/04/16 08/04/16 22:59 06:59 14:59 Intake Total 494.6 438.7 771.1 Output Total 589 553 8956 Balance -70.4 203.7 -303.9 Weight 95 lb 14.417 oz Intake: IV 0 Intake, IV Amount 174.6 78.7 456.1 Left External Jugular 200 Right Internal Jugular 124.6 28.7 6.1 left external jugular 2 50 50 250.0 Tube Feeding 320 360 315 Output: Urine [phone] Urethral (Hernandez) [phone] Other: # Bowel Movements 0 0 - Medications Active Medications: Active Medications Generic Name Dose Route Start Last Admin Trade Name Freq PRN Reason Stop Dose Admin Acetaminophen 650 mg 08/02/16 06:47 Tylenol 325mg Tab PO Q6 PRN Fever >100.4 F Albuterol Sulfate 2.5 mg 08/02/16 06:47 08/04/16 08:24 Albuterol 0.083% Inhal Claudia (2.5 Mg/3 Ml) Ud INH 2.5 mg RQ6 PRN Administration Wheezing Aspirin 81 mg 08/02/16 10:00 08/04/16 09:34 Aspirin Chewable PO 81 mg DAILY BLAKE Administration Carvedilol 6.25 mg 08/02/16 10:00 08/04/16 09:34 Coreg PO 6.25 mg BID BLAKE Administration Clopidogrel Bisulfate 75 mg 08/02/16 10:00 08/04/16 09:34 Plavix PO 75 mg DAILY BLAKE Administration Famotidine 20 mg 08/02/16 10:00 08/04/16 09:33 Pepcid IVP 20 mg Q12 BLAKE Administration Ferrous Sulfate 300 mg 08/02/16 10:00 08/04/16 13:39 Feosol Liq PO 300 mg TID BLAKE Administration Furosemide 40 mg 08/04/16 10:00 08/04/16 09:59 Lasix IVP Not Given Q12 [facility] Heparin Sodium (Porcine) 5,000 units 08/04/16 10:00 08/04/16 11:09 Heparin SC Not Given Q12 [facility] Piperacillin Sod/Tazobactam Sod 3.375 gm in 50 mls @ 100 mls/hr 08/02/16 09: 15 08/04/16 09:32 Zosyn 3.375 Gm Iv Premix IVPB 100 mls/hr Q6H BLAKE Administration Potassium Chloride 20 meq in 100 mls @ 50 mls/hr 08/04/16 13:50 08/04/16 13: 36 Potassium Chloride 20 Meq/100 Ml IVPB 08/04/16 15:49 50 mls/hr ONCE ONE Administration Insulin Human Regular 0 unit 08/02/16 12:00 08/04/16 12:16 Novolin R SC 2 unit Q6H BLAKE Administration Protocol Ipratropium [place] 0.5 mg 08/02/16 06:47 08/04/16 08:24 Atrovent IH 0.5 mg RQ6 PRN Administration Wheezing Magnesium Hydroxide 30 ml 08/02/16 07:57 08/02/16 12:13 Milk Of Magnesia PO 30 ml BID PRN Administration Constipation Midazolam HCl 1 mg 08/02/16 06:52 Versed Inj IVP Q4 PRN Sedation Rosuvastatin Calcium 5 mg 08/02/16 22:00 08/03/16 21:41 Crestor PO 5 mg HS BLAKE Administration Sennosides 8.6 mg 08/02/16 22:00 08/04/16 10:02 Senokot Tab NG 8.6 mg DAILY BLAKE Administration - Patient Studies Lab Studies: Microbiology Studies 08/02/16 09:14 Gram Stain - Final Trachasp Sputum Culture - Final NORMAL [place] 08/02/16 Unknown MRSA Culture (Admit) - Final Naris MRSA NOT DETECTED Lab Studies 08/04/16 08/04/16 08/04/16 Range/Units 11:46 05:27 04:16 WBC (4.8-10.8) K/uL RBC (3.80-5.20) Mil/uL Hgb (11.0-16.0) g/dL Hct (34.0-47.0) % MCV (81.0-99.0) fL MCH (27.0-31.0) pg MCHC (33.0-37.0) g/dL RDW (11.5-14.5) % Plt Count (130-400) K/uL MPV (7.2-11.7) fL Neut % (Auto) (50.0-75.0) % Lymph % (Auto) (20.0-40.0) % [place] % (Auto) (0.0-10.0) % Eos % (Auto) (0.0-4.0) % Baso % (Auto) (0.0-2.0) % Neut # (1.8-7.0) K/uL Lymph # (1.0-4.3) K/uL [place] # (0.0-0.8) K/uL Eos # (0.0-0.7) K/uL Baso # (0.0-0.2) K/uL Neutrophils % (Manual) (50-75) % Lymphocytes % (Manual) (20-40) % Monocytes % (Manual) (0-10) % Eosinophils % (Manual) (0-4) % Platelet Estimate (NORMAL) Hypochromasia (manual) Poikilocytosis (manual Anisocytosis (manual) Target Cells PT (9.7-12.2) SECONDS INR APTT (21-34) SECONDS Puncture Site Rb pCO2 29 L (35-45) mm/Hg pO2 93 (80-100) mm/Hg HCO3 30.1 H (21-28) mmol/L ABG pH 7.59 H (7.35-7.45) ABG Total CO2 28.7 H (22-28) mmol/L ABG O2 Saturation 99.0 H (95-98) % ABG Base Excess 6.6 H (-2.0-3.0) mmol/L Gael Test Na ABG Potassium 2.9 L (3.6-5.2) mmol/L A-a O2 Difference 156.0 mm/Hg Respiratory Index 1.7 Glucose 116 H (65-105) mg/dl Lactate 1.5 (0.7-2.1) mmol/L Mechanical Rate 12 FiO2 40.0 % Tidal Volume 400 PEEP 5 Sodium 139.0 138 (132-148) mmol/L Potassium 3.0 L (3.6-5.2) mmol/L Chloride 109.0 H 98 (98-107) mmol/L Carbon Dioxide 28 (22-30) mmol/L Anion Gap 15 (10-20) BUN 18 H (7-17) mg/dL Creatinine 0.9 (0.7-1.2) MG/DL Est GFR ( Amer) > 60 Est GFR (Non-Af Amer) 60 POC Glucose (mg/dL) 171 H (65-110) mg/dL Random Glucose 132 H (65-105) mg/dL Calcium 7.7 L (8.6-10.4) mg/dl Phosphorus 2.1 L (2.5-4.5) mg/dL Magnesium 2.5 H (1.6-2.3) mg/dL Total Bilirubin 1.4 H (0.2-1.3) mg/dL AST 15 (14-36) U/L ALT 16 (9-52) U/L Alkaline Phosphatase 79 (38-126) U/L Total Protein 6.5 (6.3-8.3) g/dL Albumin 3.3 L (3.5-5.0) g/dL Globulin 3.1 (2.2-3.9) gm/dL Albumin/Globulin Ratio 1.1 (1.0-2.1) Arterial Blood Potassium 2.9 L (3.6-5.2) mmol/L 08/04/16 08/04/16 08/03/16 Range/Units 04:16 04:16 23:48 WBC 13.9 H (4.8-10.8) K/uL RBC 3.78 L (3.80-5.20) Mil/uL Hgb 8.4 L (11.0-16.0) g/dL Hct 26.6 L (34.0-47.0) % MCV 70.4 L (81.0-99.0) fL MCH 22.3 L (27.0-31.0) pg MCHC 31.7 L (33.0-37.0) g/dL RDW 19.5 H (11.5-14.5) % Plt Count 198 (130-400) K/uL MPV 9.3 (7.2-11.7) fL Neut % (Auto) 78.9 H (50.0-75.0) % Lymph % (Auto) 8.8 L (20.0-40.0) % [place] % (Auto) 9.7 (0.0-10.0) % Eos % (Auto) 1.8 (0.0-4.0) % Baso % (Auto) 0.8 (0.0-2.0) % Neut # 11.0 H (1.8-7.0) K/uL Lymph # 1.2 (1.0-4.3) K/uL [place] # 1.3 H (0.0-0.8) K/uL Eos # 0.2 (0.0-0.7) K/uL Baso # 0.1 (0.0-0.2) K/uL Neutrophils % (Manual) 81 H (50-75) % Lymphocytes % (Manual) 9 L (20-40) % Monocytes % (Manual) 9 (0-10) % Eosinophils % (Manual) 1 (0-4) % Platelet Estimate Normal (NORMAL) Hypochromasia (manual) Slight Poikilocytosis (manual Slight Anisocytosis (manual) Moderate Target Cells Slight PT 15.3 H (9.7-12.2) SECONDS INR 1.4 APTT 41 H D (21-34) SECONDS Puncture Site pCO2 (35-45) mm/Hg pO2 (80-100) mm/Hg HCO3 (21-28) mmol/L ABG pH (7.35-7.45) ABG Total CO2 (22-28) mmol/L ABG O2 Saturation (95-98) % ABG Base Excess (-2.0-3.0) mmol/L Gael Test ABG Potassium (3.6-5.2) mmol/L A-a O2 Difference mm/Hg Respiratory Index Glucose (65-105) mg/dl Lactate (0.7-2.1) mmol/L Mechanical Rate FiO2 % Tidal Volume PEEP Sodium (132-148) mmol/L Potassium (3.6-5.2) mmol/L Chloride (98-107) mmol/L Carbon Dioxide (22-30) mmol/L Anion Gap (10-20) BUN (7-17) mg/dL Creatinine (0.7-1.2) MG/DL Est GFR ( Amer) Est GFR (Non-Af Amer) POC Glucose (mg/dL) 133 H (65-110) mg/dL Random Glucose (65-105) mg/dL Calcium (8.6-10.4) mg/dl Phosphorus (2.5-4.5) mg/dL Magnesium (1.6-2.3) mg/dL Total Bilirubin (0.2-1.3) mg/dL AST (14-36) U/L ALT (9-52) U/L Alkaline Phosphatase (38-126) U/L Total Protein (6.3-8.3) g/dL Albumin (3.5-5.0) g/dL Globulin (2.2-3.9) gm/dL Albumin/Globulin Ratio (1.0-2.1) Arterial Blood Potassium (3.6-5.2) mmol/L 08/03/16 Range/Units 17:49 WBC (4.8-10.8) K/uL RBC (3.80-5.20) Mil/uL Hgb (11.0-16.0) g/dL Hct (34.0-47.0) % MCV (81.0-99.0) fL MCH (27.0-31.0) pg MCHC (33.0-37.0) g/dL RDW (11.5-14.5) % Plt Count (130-400) K/uL MPV (7.2-11.7) fL Neut % (Auto) (50.0-75.0) % Lymph % (Auto) (20.0-40.0) % [place] % (Auto) (0.0-10.0) % Eos % (Auto) (0.0-4.0) % Baso % (Auto) (0.0-2.0) % Neut # (1.8-7.0) K/uL Lymph # (1.0-4.3) K/uL [place] # (0.0-0.8) K/uL Eos # (0.0-0.7) K/uL Baso # (0.0-0.2) K/uL Neutrophils % (Manual) (50-75) % Lymphocytes % (Manual) (20-40) % Monocytes % (Manual) (0-10) % Eosinophils % (Manual) (0-4) % Platelet Estimate (NORMAL) Hypochromasia (manual) Poikilocytosis (manual Anisocytosis (manual) Target Cells PT (9.7-12.2) SECONDS INR APTT (21-34) SECONDS Puncture Site pCO2 (35-45) mm/Hg pO2 (80-100) mm/Hg HCO3 (21-28) mmol/L ABG pH (7.35-7.45) ABG Total CO2 (22-28) mmol/L ABG O2 Saturation (95-98) % ABG Base Excess (-2.0-3.0) mmol/L Gael Test ABG Potassium (3.6-5.2) mmol/L A-a O2 Difference mm/Hg Respiratory Index Glucose (65-105) mg/dl Lactate (0.7-2.1) mmol/L Mechanical Rate FiO2 % Tidal Volume PEEP Sodium (132-148) mmol/L Potassium (3.6-5.2) mmol/L Chloride (98-107) mmol/L Carbon Dioxide (22-30) mmol/L Anion Gap (10-20) BUN (7-17) mg/dL Creatinine (0.7-1.2) MG/DL Est GFR ( Amer) Est GFR (Non-Af Amer) POC Glucose (mg/dL) 154 H (65-110) mg/dL Random Glucose (65-105) mg/dL Calcium (8.6-10.4) mg/dl Phosphorus (2.5-4.5) mg/dL Magnesium (1.6-2.3) mg/dL Total Bilirubin (0.2-1.3) mg/dL AST (14-36) U/L ALT (9-52) U/L Alkaline Phosphatase (38-126) U/L Total Protein (6.3-8.3) g/dL Albumin (3.5-5.0) g/dL Globulin (2.2-3.9) gm/dL Albumin/Globulin Ratio (1.0-2.1) Arterial Blood Potassium (3.6-5.2) mmol/L Laboratory Results - last 24 hr 08/03/16 08/03/16 08/04/16 17:49 23:48 04:16 WBC 13.9 H RBC 3.78 L Hgb 8.4 L Hct 26.6 L MCV 70.4 L MCH 22.3 L MCHC 31.7 L RDW 19.5 H Plt Count 198 MPV 9.3 Neut % (Auto) 78.9 H Lymph % (Auto) 8.8 L [place] % (Auto) 9.7 Eos % (Auto) 1.8 Baso % (Auto) 0.8 Neut # 11.0 H Lymph # 1.2 [place] # 1.3 H Eos # 0.2 Baso # 0.1 Neutrophils % (Manual) 81 H Lymphocytes % (Manual) 9 L Monocytes % (Manual) 9 Eosinophils % (Manual) 1 Platelet Estimate Normal Hypochromasia (manual) Slight Poikilocytosis (manual Slight Anisocytosis (manual) Moderate Target Cells Slight PT INR APTT Puncture Site pCO2 pO2 HCO3 ABG pH ABG Total CO2 ABG O2 Saturation ABG Base Excess Gael Test ABG Potassium A-a O2 Difference Respiratory Index Glucose Lactate Mechanical Rate FiO2 Tidal Volume PEEP Sodium Potassium Chloride Carbon Dioxide Anion Gap BUN Creatinine Est GFR ( Amer) Est GFR (Non-Af Amer) POC Glucose (mg/dL) 154 H 133 H Random Glucose Calcium Phosphorus Magnesium Total Bilirubin AST ALT Alkaline Phosphatase Total Protein Albumin Globulin Albumin/Globulin Ratio Arterial Blood Potassium 08/04/16 08/04/16 08/04/16 04:16 04:16 05:27 WBC RBC Hgb Hct MCV MCH MCHC RDW Plt Count MPV Neut % (Auto) Lymph % (Auto) [place] % (Auto) Eos % (Auto) Baso % (Auto) Neut # Lymph # [place] # Eos # Baso # Neutrophils % (Manual) Lymphocytes % (Manual) Monocytes % (Manual) Eosinophils % (Manual) Platelet Estimate Hypochromasia (manual) Poikilocytosis (manual Anisocytosis (manual) Target Cells PT 15.3 H INR 1.4 APTT 41 H D Puncture Site Rb pCO2 29 L pO2 93 HCO3 30.1 H ABG pH 7.59 H ABG Total CO2 28.7 H ABG O2 Saturation 99.0 H ABG Base Excess 6.6 H Gael Test Na ABG Potassium 2.9 L A-a O2 Difference 156.0 Respiratory Index 1.7 Glucose 116 H Lactate 1.5 Mechanical Rate 12 FiO2 40.0 Tidal Volume 400 PEEP 5 Sodium 138 139.0 Potassium 3.0 L Chloride 98 109.0 H Carbon Dioxide 28 Anion Gap 15 BUN 18 H Creatinine 0.9 Est GFR ( Amer) > 60 Est GFR (Non-Af Amer) 60 POC Glucose (mg/dL) Random Glucose 132 H Calcium 7.7 L Phosphorus 2.1 L Magnesium 2.5 H Total Bilirubin 1.4 H AST 15 ALT 16 Alkaline Phosphatase 79 Total Protein 6.5 Albumin 3.3 L Globulin 3.1 Albumin/Globulin Ratio 1.1 Arterial Blood Potassium 2.9 L 08/04/16 11:46 WBC RBC Hgb Hct MCV MCH MCHC RDW Plt Count MPV Neut % (Auto) Lymph % (Auto) [place] % (Auto) Eos % (Auto) Baso % (Auto) Neut # Lymph # [place] # Eos # Baso # Neutrophils % (Manual) Lymphocytes % (Manual) Monocytes % (Manual) Eosinophils % (Manual) Platelet Estimate Hypochromasia (manual) Poikilocytosis (manual Anisocytosis (manual) Target Cells PT INR APTT Puncture Site pCO2 pO2 HCO3 ABG pH ABG Total CO2 ABG O2 Saturation ABG Base Excess Gael Test ABG Potassium A-a O2 Difference Respiratory Index Glucose Lactate Mechanical Rate FiO2 Tidal Volume PEEP Sodium Potassium Chloride Carbon Dioxide Anion Gap BUN Creatinine Est GFR ( Amer) Est GFR (Non-Af Amer) POC Glucose (mg/dL) 171 H Random Glucose Calcium Phosphorus Magnesium Total Bilirubin AST ALT Alkaline Phosphatase Total Protein Albumin Globulin Albumin/Globulin Ratio Arterial Blood Potassium Critical Care Progress Note - Nutrition Nutrition: Nutrition Category Date Time Status NPO Diet [DIET] Diets 08/02/16 Breakfast Active Attending/Attestation - Attestation I have personally seen and examined this patient.: Yes I have fully participated in the care of the patient.: Yes I have reviewed all pertinent clinical information: Yes Notes (Text): 08/04/16 14:05 I have seen and examined the patient. Medical records, lab studies, and imaging were reviewed by me and a management plan was formulated on multidisciplinary rounds with resident Dr. Marrero. I agree with their above documented assessment and plan. Patient still has pulmonary edema from acute on chronic exacerbation of systolic CHF with severe MR, increasing diuresis. Continue PS trials, which patient is tolerating. Probable extubation by tomorrow. Critical Care Time 35 minutes. Multi-disciplinary rounds were performed with house staff, nursing, speech therapy, respiratory therapy, pharmacy and nutrition with integrated input from the primary team/attending and other consulting services. The documented time is cumulative and includes review of patient data/exams/labs/chart review and examination of the patient on rounds and throughout the day; time is exclusive of any procedures or teaching time. 08/04/16 14:09 08/04/16 14:12
--- NOTE | 2016-08-04 14:02 | RAD ---
HISTORY: ET Tube Evaluation COMPARISON: Chest x-ray performed 08/03/16. TECHNIQUE: Chest, one view. FINDINGS: Heel tube appears to terminate approximately 2.1 cm above the level of the maddy, partially obscured by superimposed nasogastric tube. Nasogastric tube extends the expected location of the stomach. Right-sided IJ approach central venous catheter extends expected location of the SVC. LUNGS: Biapical pleural thickening with granulomatous changes. Small nodular density re-identified at the right lung base. Please note that chest x-ray has limited sensitivity for the detection of pulmonary masses. PLEURA: No significant pleural effusion identified. No definite pneumothorax . CARDIOVASCULAR: Cardiomegaly. Atherosclerotic calcifications of the aorta. OSSEOUS STRUCTURES: Degenerative changes. Osseous demineralization. Scoliosis. VISUALIZED UPPER ABDOMEN: Unremarkable. OTHER FINDINGS: None. IMPRESSION: Support lines and tubes as above. Trace bilateral pleural effusions. Bibasilar atelectasis. Biapical pleural thickening with granulomatous changes. Small nodular density re-identified at the right lung base. Cardiomegaly. Atherosclerotic calcifications. Additional findings as above.
[2016-08-05] MEDS: (Novolin R) Insulin Human Regular 100 units/ml vial SC SCH ×4 (00:42→19:04)
[2016-08-05] MEDS: Piperacill/Tazo 3.375gm in Dex 3.375 GM/50 ML BAG IVPB SCH ×4 (03:30→21:30)
[2016-08-05 05:52] LABS: ABG MECHANICAL RATE 12; ARTERIAL BLOOD HGB O2 SAT 96.5 % (95.0-98.0); ATERIAL BLOOD GAS PEEP 5; CARBOXYHEMOGLOBIN 1.7 % (0.5-1.5); DRAW SITE RB; METHEMOGLOBIN 0.8 % (0.0-3.0)
[2016-08-05 06:22] LABS: BASO # 0.1 K/uL (0.0-0.2); BASO % 0.9 % (0.0-2.0); EOS # 0.9 K/uL (0.0-0.7); EOS % 6.5 % (0.0-4.0); HEMATOCRIT 27.7 % (34.0-47.0); LYMPH # 1.2 K/uL (1.0-4.3); LYMPH % 9.2 % (20.0-40.0); MEAN CELL VOLUME 71.6 fL (81.0-99.0); MEAN CORPUSCULAR HEMOGLOBIN 22.8 pg (27.0-31.0); MEAN CORPUSCULAR HGB CONC 31.9 g/dL (33.0-37.0); MEAN PLATELET VOLUME 10.3 fL (7.2-11.7); MONO # 1.3 K/uL (0.0-0.8); MONO % 9.7 % (0.0-10.0); NRBC % 0.3 % (0.0-2.0); PLATELET COUNT 236 K/uL (130-400); RED CELL DISTRIBUTION WIDTH 20.1 % (11.5-14.5); WHITE BLOOD COUNT 13.6 K/uL (4.8-10.8)
[2016-08-05 06:38] LABS: INR 1.2
[2016-08-05] MEDS ORDERED: Sodium Phosphate 15 MMOLE in Sodium Chloride 0.9% 250 ML IVPB ONE (06:42)
--- NOTE | 2016-08-05 06:46 | CP.CCUPN ---
<Les Marrero - Last Filed: 08/05/16 13:02> CCU Subjective - Physician Review Subjective (Free Text): 08/03/16 13:35 Patient seen and examined at bedside. No acute distress. No acute events overnight. Nursing staff reports no issues. Patient remains on PRVC (Tv 370, Rate 12, PEEP 5, FiO2 40%). Patient tolerated placement of right IJ TLC. The patient's lactate remains high at 2.7. Today on rounds, the patient's vent setting were change to TV 370mL and rate of 12/min due to respiratory alkalosis. Cardiology was consulted due to continued downward trend of LVEF on ECHO (most recently 35%). Post-Rounds, patient was switched to CPAP 18/5 which was subsequently reduced to 15/5. Patient is tolerating CPAP well. 08/04/16 12:21 Patient seen and examined at bedside. No acute distress. No acute events overnight. Nursing staff reports no issues. The patient tolerated her time on CPAP well yesterday. The patient will be trialed on CPAP again today. She is currently tolerating CPAP 10/5 at 40% FiO2. Today on rounds, the patient's propofol was discontinued, her lasix was changed to q12 from daily, and her heparin was changed to q12 from q8. The patient responds appropriately to questions now that the sedation has been discontinued. The patient's potassium and phosphorous were also replaced. 08/05/16 06:43 Patient seen and examined at bedside. No acute distress. No acute events overnight. Nursing staff reports no issues. The patient tolerated her time on CPAP again yesterday. The patient continues to saturate well. Patient currently off sedation. Today on rounds, the patient's potassium and phosphorous were replaced. The patient was placed on CPAP 10/5 at 40% FiO2. Post rounds, the patient was extubated. The patient is sating well s/p extubation. Critical Care Time Spent (in minutes): 90 CCU Objective - Vital Signs / Intake & Output Vital Signs (Last 4 hours): Vital Signs Temp Pulse Resp BP Pulse Ox 08/05/16 06:23 103/60 08/05/16 06:22 73 14 100 08/05/16 05:44 74 18 99/54 L 100 08/05/16 04:23 75 21 100/54 L 100 08/05/16 04:00 98.7 F 08/05/16 03:23 76 17 109/56 L 100 Intake and Output (Last 8hrs): Intake & Output 08/04/16 08/04/16 08/05/16 14:59 22:59 06:59 Intake Total 916.1 373.2 392.8 Output Total 1375 625 700 Balance -458.9 -251.8 -307.2 Weight 45.1 kg Intake: Intake, IV Amount 556.1 58.2 32.8 Left External Jugular 300 50 Right Internal Jugular 6.1 8.2 32.8 left external jugular 2 250.0 0 Tube Feeding 360 315 360 Output: Urine 1375 625 700 Urethral (Hernandez) 1375 625 700 - Physical Exam Head: Positive for: Atraumatic, Normocephalic, Other (et tube in place) Extroacular Muscles: Positive for: EOMI Mouth: Positive for: Moist Mucous Membranes. Negative for: Drooling Neck: Negative for: JVD, Lymphadenopathy Respiratory/Chest: Positive for: Clear to Auscultation, Good Air Exchange. Negative for: Respiratory Distress, Accessory Muscle Use, Wheezes, Rales, Rhonchi Cardiovascular: Positive for: Regular Rate and Rhythm, Normal S1, S2, Peripheal Pulses Present. Negative for: Murmurs Abdomen: Positive for: Normal Bowel Sounds. Negative for: Tenderness, Distention, Peritoneal Signs, Rebound, Guarding Upper Extremity: Positive for: Normal Inspection, NORMAL PULSES. Negative for: Cyanosis, Edema Lower Extremity: Positive for: Normal Inspection, NORMAL PULSES. Negative for: Edema, CALF TENDERNESS Neurological: Positive for: Other (responding appropriately ) Skin: Positive for: Warm, Dry, Normal Color. Negative for: Rashes Psychiatric: Positive for: Alert - Medications Active Medications: Active Medications Generic Name Dose Route Start Last Admin Trade Name Freq PRN Reason Stop Dose Admin Acetaminophen 650 mg 08/02/16 06:47 Tylenol 325mg Tab PO Q6 PRN Fever >100.4 F Albuterol Sulfate 2.5 mg 08/02/16 06:47 08/04/16 19:22 Albuterol 0.083% Inhal Claudia (2.5 Mg/3 Ml) Ud INH 2.5 mg RQ6 PRN Administration Wheezing Aspirin 81 mg 08/02/16 10:00 08/04/16 09:34 Aspirin Chewable PO 81 mg DAILY BLAKE Administration Carvedilol 6.25 mg 08/02/16 10:00 08/04/16 17:40 Coreg PO 6.25 mg BID BLAKE Administration Clopidogrel Bisulfate 75 mg 08/02/16 10:00 08/04/16 09:34 Plavix PO 75 mg DAILY BLAKE Administration Famotidine 20 mg 08/02/16 10:00 08/04/16 21:58 Pepcid IVP 20 mg Q12 BLAKE Administration Ferrous Sulfate 300 mg 08/02/16 10:00 08/04/16 17:40 Feosol Liq PO 300 mg TID BLAKE Administration Furosemide 40 mg 08/04/16 10:00 08/04/16 21:59 Lasix IVP 40 mg Q12 BLAKE Administration Heparin Sodium (Porcine) 5,000 units 08/04/16 10:00 08/04/16 21:58 Heparin SC 5,000 units Q12 BLAKE Administration Piperacillin Sod/Tazobactam Sod 3.375 gm in 50 mls @ 100 mls/hr 08/02/16 09: 15 08/05/16 03:30 Zosyn 3.375 Gm Iv Premix IVPB 100 mls/hr Q6H BLAKE Administration Potassium Chloride 20 meq in 100 mls @ 50 mls/hr 08/05/16 06:42 Potassium Chloride 20 Meq/100 Ml IVPB 08/05/16 08:41 ONCE ONE Sodium Phosphate 15 mmole/ 255 mls @ 50 mls/hr 08/05/16 06:42 Sodium Chloride IVPB 08/05/16 11:47 .Q5H6M ONE Potassium Chloride 20 meq in 100 mls @ 50 mls/hr 08/05/16 10:00 Potassium Chloride 20 Meq/100 Ml IVPB 08/05/16 11:59 ONCE ONE Insulin Human Regular 0 unit 08/02/16 12:00 08/05/16 06:23 Novolin R SC Not Given Q6H [facility] Protocol Ipratropium Crystal 0.5 mg 08/02/16 06:47 08/04/16 19:22 Atrovent IH 0.5 mg RQ6 PRN Administration Wheezing Magnesium Hydroxide 30 ml 08/02/16 07:57 08/02/16 12:13 Milk Of Magnesia PO 30 ml BID PRN Administration Constipation Midazolam HCl 1 mg 08/02/16 06:52 Versed Inj IVP Q4 PRN Sedation Rosuvastatin Calcium 5 mg 08/02/16 22:00 08/04/16 21:59 Crestor PO 5 mg HS BLAKE Administration Sennosides 8.6 mg 08/02/16 22:00 08/04/16 10:02 Senokot Tab NG 8.6 mg DAILY BLAKE Administration - Patient Studies Lab Studies: Microbiology Studies 08/02/16 09:14 Gram Stain - Final Trachasp Sputum Culture - Final NORMAL [place]AL GILL 08/02/16 Unknown MRSA Culture (Admit) - Final Naris MRSA NOT DETECTED Lab Studies 08/05/16 08/05/16 08/05/16 Range/Units 06:18 06:14 05:49 WBC 13.6 H (4.8-10.8) K/uL RBC 3.86 (3.80-5.20) Mil/uL Hgb 8.8 L (11.0-16.0) g/dL Hct 27.7 L (34.0-47.0) % MCV 71.6 L (81.0-99.0) fL MCH 22.8 L (27.0-31.0) pg MCHC 31.9 L (33.0-37.0) g/dL RDW 20.1 H (11.5-14.5) % Plt Count 236 (130-400) K/uL MPV 10.3 (7.2-11.7) fL Neut % (Auto) 73.7 (50.0-75.0) % Lymph % (Auto) 9.2 L (20.0-40.0) % [place] % (Auto) 9.7 (0.0-10.0) % Eos % (Auto) 6.5 H (0.0-4.0) % Baso % (Auto) 0.9 (0.0-2.0) % Neut # 10.0 H (1.8-7.0) K/uL Lymph # 1.2 (1.0-4.3) K/uL [place] # 1.3 H (0.0-0.8) K/uL Eos # 0.9 H (0.0-0.7) K/uL Baso # 0.1 (0.0-0.2) K/uL Neutrophils % (Manual) (50-75) % Lymphocytes % (Manual) (20-40) % Monocytes % (Manual) (0-10) % Eosinophils % (Manual) (0-4) % Platelet Estimate (NORMAL) Hypochromasia (manual) Poikilocytosis (manual Anisocytosis (manual) Target Cells Puncture Site Rb pCO2 37 (35-45) mm/Hg pO2 106 H (80-100) mm/Hg HCO3 30.9 H (21-28) mmol/L ABG pH 7.53 H (7.35-7.45) ABG Total CO2 32.0 H (22-28) mmol/L ABG O2 Saturation 99.0 H (95-98) % ABG Base Excess 7.7 H (-2.0-3.0) mmol/L ABG Hemoglobin 9.2 L (11.7-17.4) g/dL ABG Carboxyhemoglobin 1.7 H (0.5-1.5) % POC ABG HHb (Measured) 1.0 (0.0-5.0) % ABG Methemoglobin 0.8 (0.0-3.0) % Gael Test Na A-a O2 Difference 133.0 mm/Hg Respiratory Index 1.3 Hgb O2 Saturation 96.5 (95.0-98.0) % Mechanical Rate 12 FiO2 40.0 % Tidal Volume 400 PEEP 5 POC Glucose (mg/dL) 128 H (65-110) mg/dL 08/05/16 08/04/16 08/04/16 Range/Units 00:02 17:54 11:46 WBC (4.8-10.8) K/uL RBC (3.80-5.20) Mil/uL Hgb (11.0-16.0) g/dL Hct (34.0-47.0) % MCV (81.0-99.0) fL MCH (27.0-31.0) pg MCHC (33.0-37.0) g/dL RDW (11.5-14.5) % Plt Count (130-400) K/uL MPV (7.2-11.7) fL Neut % (Auto) (50.0-75.0) % Lymph % (Auto) (20.0-40.0) % [place] % (Auto) (0.0-10.0) % Eos % (Auto) (0.0-4.0) % Baso % (Auto) (0.0-2.0) % Neut # (1.8-7.0) K/uL Lymph # (1.0-4.3) K/uL [place] # (0.0-0.8) K/uL Eos # (0.0-0.7) K/uL Baso # (0.0-0.2) K/uL Neutrophils % (Manual) (50-75) % Lymphocytes % (Manual) (20-40) % Monocytes % (Manual) (0-10) % Eosinophils % (Manual) (0-4) % Platelet Estimate (NORMAL) Hypochromasia (manual) Poikilocytosis (manual Anisocytosis (manual) Target Cells Puncture Site pCO2 (35-45) mm/Hg pO2 (80-100) mm/Hg HCO3 (21-28) mmol/L ABG pH (7.35-7.45) ABG Total CO2 (22-28) mmol/L ABG O2 Saturation (95-98) % ABG Base Excess (-2.0-3.0) mmol/L ABG Hemoglobin (11.7-17.4) g/dL ABG Carboxyhemoglobin (0.5-1.5) % POC ABG HHb (Measured) (0.0-5.0) % ABG Methemoglobin (0.0-3.0) % Gael Test A-a O2 Difference mm/Hg Respiratory Index Hgb O2 Saturation (95.0-98.0) % Mechanical Rate FiO2 % Tidal Volume PEEP POC Glucose (mg/dL) 133 H 108 171 H (65-110) mg/dL 08/04/16 Range/Units 04:16 WBC (4.8-10.8) K/uL RBC (3.80-5.20) Mil/uL Hgb (11.0-16.0) g/dL Hct (34.0-47.0) % MCV (81.0-99.0) fL MCH (27.0-31.0) pg MCHC (33.0-37.0) g/dL RDW (11.5-14.5) % Plt Count (130-400) K/uL MPV (7.2-11.7) fL Neut % (Auto) (50.0-75.0) % Lymph % (Auto) (20.0-40.0) % [place] % (Auto) (0.0-10.0) % Eos % (Auto) (0.0-4.0) % Baso % (Auto) (0.0-2.0) % Neut # (1.8-7.0) K/uL Lymph # (1.0-4.3) K/uL [place] # (0.0-0.8) K/uL Eos # (0.0-0.7) K/uL Baso # (0.0-0.2) K/uL Neutrophils % (Manual) 81 H (50-75) % Lymphocytes % (Manual) 9 L (20-40) % Monocytes % (Manual) 9 (0-10) % Eosinophils % (Manual) 1 (0-4) % Platelet Estimate Normal (NORMAL) Hypochromasia (manual) Slight Poikilocytosis (manual Slight Anisocytosis (manual) Moderate Target Cells Slight Puncture Site pCO2 (35-45) mm/Hg pO2 (80-100) mm/Hg HCO3 (21-28) mmol/L ABG pH (7.35-7.45) ABG Total CO2 (22-28) mmol/L ABG O2 Saturation (95-98) % ABG Base Excess (-2.0-3.0) mmol/L ABG Hemoglobin (11.7-17.4) g/dL ABG Carboxyhemoglobin (0.5-1.5) % POC ABG HHb (Measured) (0.0-5.0) % ABG Methemoglobin (0.0-3.0) % Gael Test A-a O2 Difference mm/Hg Respiratory Index Hgb O2 Saturation (95.0-98.0) % Mechanical Rate FiO2 % Tidal Volume PEEP POC Glucose (mg/dL) (65-110) mg/dL Laboratory Results - last 24 hr 08/04/16 08/04/16 08/04/16 04:16 11:46 17:54 WBC RBC Hgb Hct MCV MCH MCHC RDW Plt Count MPV Neut % (Auto) Lymph % (Auto) [place] % (Auto) Eos % (Auto) Baso % (Auto) Neut # Lymph # [place] # Eos # Baso # Neutrophils % (Manual) 81 H Lymphocytes % (Manual) 9 L Monocytes % (Manual) 9 Eosinophils % (Manual) 1 Platelet Estimate Normal Hypochromasia (manual) Slight Poikilocytosis (manual Slight Anisocytosis (manual) Moderate Target Cells Slight Puncture Site pCO2 pO2 HCO3 ABG pH ABG Total CO2 ABG O2 Saturation ABG Base Excess ABG Hemoglobin ABG Carboxyhemoglobin POC ABG HHb (Measured) ABG Methemoglobin Gael Test A-a O2 Difference Respiratory Index Hgb O2 Saturation Mechanical Rate FiO2 Tidal Volume PEEP POC Glucose (mg/dL) 171 H 108 08/05/16 08/05/16 08/05/16 00:02 05:49 06:14 WBC 13.6 H RBC 3.86 Hgb 8.8 L Hct 27.7 L MCV 71.6 L MCH 22.8 L MCHC 31.9 L RDW 20.1 H Plt Count 236 MPV 10.3 Neut % (Auto) 73.7 Lymph % (Auto) 9.2 L [place] % (Auto) 9.7 Eos % (Auto) 6.5 H Baso % (Auto) 0.9 Neut # 10.0 H Lymph # 1.2 [place] # 1.3 H Eos # 0.9 H Baso # 0.1 Neutrophils % (Manual) Lymphocytes % (Manual) Monocytes % (Manual) Eosinophils % (Manual) Platelet Estimate Hypochromasia (manual) Poikilocytosis (manual Anisocytosis (manual) Target Cells Puncture Site Rb pCO2 37 pO2 106 H HCO3 30.9 H ABG pH 7.53 H ABG Total CO2 32.0 H ABG O2 Saturation 99.0 H ABG Base Excess 7.7 H ABG Hemoglobin 9.2 L ABG Carboxyhemoglobin 1.7 H POC ABG HHb (Measured) 1.0 ABG Methemoglobin 0.8 Gael Test Na A-a O2 Difference 133.0 Respiratory Index 1.3 Hgb O2 Saturation 96.5 Mechanical Rate 12 FiO2 40.0 Tidal Volume 400 PEEP 5 POC Glucose (mg/dL) 133 H 08/05/16 06:18 WBC RBC Hgb Hct MCV MCH MCHC RDW Plt Count MPV Neut % (Auto) Lymph % (Auto) [place] % (Auto) Eos % (Auto) Baso % (Auto) Neut # Lymph # [place] # Eos # Baso # Neutrophils % (Manual) Lymphocytes % (Manual) Monocytes % (Manual) Eosinophils % (Manual) Platelet Estimate Hypochromasia (manual) Poikilocytosis (manual Anisocytosis (manual) Target Cells Puncture Site pCO2 pO2 HCO3 ABG pH ABG Total CO2 ABG O2 Saturation ABG Base Excess ABG Hemoglobin ABG Carboxyhemoglobin POC ABG HHb (Measured) ABG Methemoglobin Gael Test A-a O2 Difference Respiratory Index Hgb O2 Saturation Mechanical Rate FiO2 Tidal Volume PEEP POC Glucose (mg/dL) 128 H Fingerstick Blood Sugar Results: 128 Review of Systems - Review of Systems Systems not reviewed;Unavailable: Intubated Critical Care Progress Note - Ventilator Checklist Head of Bed 30 Degrees: Yes Daily Sedation Vacation: Yes Daily Assessment of Readiness to Wean: Yes Daily Spontaneous Breathing Trial: Yes PUD Prophalyxis: Yes DVT Prophylaxis: Yes - Vent Settings MODE:: CPAP TIDAL VOLUME:: 400 RESP RATE:: 12 FIO2:: 40 PEEP:: 5 - Extremities/Vascular Does the Patient have a Central Venous Catheter?: Yes Insertion Site: Internal Jugular Vein (right) Does the Patient need a Central Venous Catheter?: Yes Does the Patient have a Hernandez Catheter?: Yes Does the Patient need a Hernandez Catheter?: Yes Catheter Insertion Criteria: Patient requires prolonged immobilization - Prophylaxis GI Prophylaxis GI: Pepsid - Prophylaxis DVT Prophylaxis DVT: Heparin SQ - Nutrition Nutrition: Nutrition Category Date Time Status NPO Diet [DIET] Diets 08/02/16 Breakfast Active Assessment/Plan (1) Systolic congestive heart failure, NYHA class 3 Current Visit: Yes Status: Chronic (2) Acute pulmonary edema Current Visit: Yes Status: Acute (3) Ventricular tachycardia Current Visit: Yes Status: Resolved (4) CHF exacerbation Current Visit: No Status: Acute (5) Acute respiratory failure with hypoxia and hypercarbia Current Visit: Yes Status: Acute (6) Ventilator dependent Current Visit: Yes Status: Acute (7) Respiratory failure requiring intubation Current Visit: Yes Status: Acute - Assessment and Plan (Free Text) Plan: Patient Status: Intubated- tolerating CPAP Central Line Access Right IJ TLC (placed 08/02/16) Neuro: -Intubated -Cranial Reflexes Intact Cardiovascular: -Lasix 40 mg IVP q12 -Coreg 6.25 mg PO BID -Aspirin 81mg po daily -Plavix 75mg PO daily -Crestor 5mg po hs -08/02/16 Echo: dilated LV with EF 35%, dyskynetic/akinetic septum, moderate pulm HTN, moderate mitral regurgitation, and left atrial enlargement -08/02/16 ECG: V.tach; LAD; incomplete RBBB, left ventricular hypertrophy -06/25/16 ECHO: Mildly impaired systolic function. EF 40-45%. There is akinesis and thinning of the basal and mid inferior wall and septal wall segments (both anterior and inferior) indicative of prior CO. Left and right atrium moderately dilated. Aortic valve moderately sclerotic. Severe mitral regurgitation. Poor MV leaflet coaptation due to papillary muscle displacement secondary to CO. Moderate tricuspid regurgitation. Pulmonary: -Osullivan for extubation today -CPAP: 10/5, 40% FiO2 -Daily CXR/ABG -Albuterol 2.5 mg INH RQ6 prn and Ipratropium 0.5mg -ABG- respiratory alkalosis -08/05/16: CO2 37 / O2 106 / HCO3 30.9 / pH 7.53 -08/04/16: CO2 29 / O2 93 / HCO3 30.1 / pH 7.59 -08/03/16: CO2 23 / O2 197 / HCO3 22.3 / pH 7.50 -08/02/16: CO2 42 / O2 62 / HCO3 18.7 / pH 7.26 -08/02/16: CO2 35 / O2 69 / HCO3 16.7 / pH 7.26 -Possible Pneumonia likely 2/2 aspiration vs Cardiogenic Pulmonary Edema -Zosyn 3.375 gm IV day 4 -Lasix 40 mg IVP q12 -Sputum gram stain - many PMNs, but no organisms, culture negative -Imaging - 08/05/16 CXR- Stable position of ET tube, central line, and NG tube- official read pending - 08/04/16 CXR- Heel tube appears to terminate approximately 2.1 cm above the level of the maddy, partially obscured by superimposed nasogastric tube. Nasogastric tube extends the expected location of the stomach. Right-sided IJ approach central venous catheter extends expected location of the SVC. Trace bilateral pleural effusions. Bibasilar atelectasis. Biapical pleural thickening with granulomatous changes. Small nodular density re-identified at the right lung base. Cardiomegaly. Atherosclerotic calcifications. - 08/03/16 CXR- Endotracheal tube extending into the mid thoracic trachea. Other lines and tubes in stable position. Biapical pleural thickening with upper lobe granulomatous changes. Venous congestion. Small nodular density at the right lung base. Left hilar prominence. Patchy increased markings at the left lung base. Severe levoscoliotic curvature of the lumbar spine. Mild cardiomegaly. Degenerative changes in the spine and shoulders. -08/02/16 CXR: Endotracheal tube extending into the mid thoracic trachea. NG tube extending into the stomach. Multiple additional lines, tubes, and catheters project over the lower chest and upper abdomen, possibly external. Consolidative changes noted throughout the right lung most prominent in the right mid to lower lung zone as well as within the left hilar region and left lung base. Diffuse increased interstitial lung markings. Biapical pleural thickening with upper lobe granulomatous changes. Bilateral hilar prominence. Nodular density at the left lung base may represent prominent nipple shadow. Gastrointestinal: -tube feeding with diabetisource (goal 45ml/hr) Hematology: -Microcytic anemia likely 2/2 to iron deficiency vs anemia of chronic disease -Ferrous sulfate 300mg PO TID -No acute issues Endocrine: -Sliding Scale Insulin Renal: -Respiratory Alkalosis -Intubated- CPAP 10/5 40% FiO2 -Daily ABG Musculoskeletal: -No acute issues Genitourinary: -Continue Hernandez Infectious disease: -Leukocytosis -Elevated lactate 2.7 -Zosyn 3.375g IV q6- Day 4 -08/02/16 Blood Cultures- no growth -08/02/16 Tracheal Aspiration- no growth -08/02/16 Urine Cx- contamination GI prophylaxis: Pepcid 20mg IVP Q12 [facility] DVT prophylaxis: Heparin 5000 units SC Q12 [facility] Other prophylaxis: Aspirin 81 mg PO daily [facility] Case discussed with Dr. Nas Marrero PGY1 - Date & Time Date: 08/05/16 Time: 13:05 <Elliot Lovell - Last Filed: 08/09/16 17:35> CCU Objective - Vital Signs / Intake & Output Vital Signs (Last 4 hours): Vital Signs Temp Pulse Resp BP Pulse Ox 08/09/16 16:00 97.4 F L 68 20 100/46 L 100 Intake and Output (Last 8hrs): Intake & Output 08/09/16 08/09/16 08/09/16 06:59 14:59 22:59 Intake Total 340 Balance 340 Weight 90 lb Intake: Intake, IV Amount 100 Right Internal Jugular 100 Medial Port Oral 240 Other: # Voids Urine, Voided 4 # Bowel Movements 2 - Medications Active Medications: Active Medications Generic Name Dose Route Start Last Admin Trade Name Freq PRN Reason Stop Dose Admin Acetaminophen 650 mg 08/02/16 06:47 08/07/16 20:35 Tylenol 325mg Tab PO 650 mg Q6 PRN Administration Fever >100.4 F Albuterol/Ipratropium 3 ml 08/08/16 08:00 08/09/16 13:59 Duoneb 3 Mg/0.5 Mg (3 Ml) Ud INH 3 ml RQ6 BLAKE Administration Albuterol/Ipratropium 3 ml 08/08/16 07:58 Duoneb 3 Mg/0.5 Mg (3 Ml) Ud INH RQ2 PRN Shortness of Breath Alprazolam 0.5 mg 08/06/16 10:00 08/09/16 10:00 Xanax PO 0.5 mg Q12 BLAKE Administration Aspirin 81 mg 08/02/16 10:00 08/09/16 10:00 Aspirin Chewable PO 81 mg DAILY BLAKE Administration Carvedilol 6.25 mg 08/02/16 10:00 08/09/16 17:21 Coreg PO 6.25 mg BID BLAKE Administration Clopidogrel Bisulfate 75 mg 08/02/16 10:00 08/09/16 10:00 Plavix PO 75 mg DAILY BLAKE Administration Famotidine 20 mg 08/02/16 10:00 08/09/16 10:00 Pepcid IVP 20 mg Q12 BLAKE Administration Ferrous Sulfate 300 mg 08/02/16 10:00 08/09/16 17:20 Feosol Liq PO 300 mg TID BLAKE Administration Furosemide 40 mg 08/06/16 10:00 08/09/16 10:00 Lasix IVP 40 mg DAILY BLAKE Administration Heparin Sodium (Porcine) 5,000 units 08/07/16 22:00 08/09/16 15:05 Heparin SC 5,000 units Q8 BLAKE Administration Piperacillin Sod/Tazobactam Sod 3.375 gm in 50 mls @ 100 mls/hr 08/07/16 15: 00 08/09/16 15:06 Zosyn 3.375 Gm Iv Premix IVPB 100 mls/hr Q6H BLAKE Administration Insulin Human Regular 0 unit 08/07/16 16:30 08/09/16 17:14 Novolin R SC Not Given ACHS [facility] Protocol Magnesium Hydroxide 30 ml 08/02/16 07:57 08/02/16 12:13 Milk Of Magnesia PO 30 ml BID PRN Administration Constipation Rosuvastatin Calcium 5 mg 08/02/16 22:00 08/08/16 21:01 Crestor PO 5 mg HS BLAKE Administration Sennosides 8.6 mg 08/02/16 22:00 08/09/16 10:00 Senokot Tab NG 8.6 mg DAILY BLAKE Administration - Patient Studies Lab Studies: Lab Studies 08/09/16 08/09/16 08/09/16 Range/Units 16:06 11:21 07:16 POC Glucose (mg/dL) 137 H 154 H 93 (65-110) mg/dL 08/08/16 Range/Units 21:10 POC Glucose (mg/dL) 122 H (65-110) mg/dL Laboratory Results - last 24 hr 08/08/16 08/09/16 08/09/16 21:10 07:16 11:21 POC Glucose (mg/dL) 122 H 93 154 H 08/09/16 16:06 POC Glucose (mg/dL) 137 H Critical Care Progress Note - Nutrition Nutrition: Nutrition Category Date Time Status Heart Healthy Diet [DIET] Diets 08/08/16 Dinner Active NPO Diet [DIET] Diets 08/10/16 Breakfast Active Attending/Attestation - Attestation I have personally seen and examined this patient.: Yes I have fully participated in the care of the patient.: Yes I have reviewed all pertinent clinical information: Yes Notes (Text): Today: Friday, August 05, 2016 The Patient was seen and examined at the bedside, Medical records reviewed, all clinical/lab/hemodynamic/radiographic data were reviewed and management issues were discussed and formulated, Pain issues, skin care, head of the bed elevation, GI/DVT prophylaxis, glycemic control were addressed. I discussed the plan of care with the resident and agree with the above history and physical and assessment/plans as transcribed in Dr. Marrero note
[2016-08-05 06:49] LABS: CHLORIDE 97 mmol/L (98-107); POTASSIUM 3.1 mmol/L (3.6-5.2); SODIUM 140 mmol/L (132-148)
[2016-08-05 06:51] LABS: ALB/GLOB RATIO 1.1 (1.0-2.1); ALKALINE PHOSPHATASE 103 U/L (38-126); AST/SGOT 22 U/L (14-36); BILIRUBIN,TOTAL 1.2 mg/dL (0.2-1.3); CARBON DIOXIDE 31 mmol/L (22-30); GFR AFRICAN-AMERICAN > 60; TOTAL PROTEIN 7.2 g/dL (6.3-8.3)
[2016-08-05 06:52] LABS: ALT/SGPT 16 U/L (9-52); BLOOD UREA NITROGEN 24 mg/dL (7-17); CALCIUM 8.2 mg/dl (8.6-10.4); GLUCOSE,RANDOM 114 mg/dL (65-105); MAGNESIUM 2.3 mg/dL (1.6-2.3); PHOSPHOROUS 2.9 mg/dL (2.5-4.5)
--- NOTE | 2016-08-05 07:56 | PN ---
DATE: 08/04/2016 The patient is on ventilator PRVC mode, shortness of breath. Continue supportive care. Gisselle Vogel MD cc: [id number] TT: 08/04/2016 11:56:35 Confirmation # [id number] Dictation # [id number] jn
[2016-08-05] MEDS: Ipratropium 0.02% Inhal Soln (0.5 mg/2.5 ml) UD IH PRN ×2 (08:04→19:48)
[2016-08-05] MEDS: Albuterol 0.083% Inhal Sol (2.5 mg/3 mL) UD INH PRN ×2 (08:04→19:48)
[2016-08-05 08:09] LABS: BASOPHIL 1 % (0-2); EOSINOPHIL 9 % (0-4); NEUTROPHIL 65 % (50-75); TOTAL CELLS COUNTED 100
[2016-08-05 08:10] LABS: LARGE PLATELETS PRESENT
[2016-08-05 08:12] LABS: GIANT PLATELETS PRESENT
[2016-08-05] MEDS: Ferrous Sulfate 300 mg/5 mL Liq UD PO SCH ×3 (09:07→17:22)
--- NOTE | 2016-08-05 10:59 | CP.PCM.PN ---
Subjective - Date & Time of Evaluation Date of Evaluation: 08/05/16 Time of Evaluation: 10:57 - Subjective Subjective: Progress Note for Dr. Gustafson Pt seen and examined at bedside. Pt with no acute events overnight. Pt remains intubated with OGT. Pt is alert and able to follow commands. No sedation at this time. Denies CP, N/V/D, headaches. Objective - Vital Signs/Intake and Output Vital Signs (last 24 hours): Temp Pulse Resp BP Pulse Ox 97.5 F L 66 22 94/52 L 100 08/05/16 08:00 08/05/16 10:23 08/05/16 10:23 08/05/16 10:23 08/05/16 10:23 Intake and Output: 08/05/16 08/05/16 06:59 18:59 Intake Total 581.0 294.1 Output Total 900 365 Balance -319.0 -70.9 - Medications Medications: Current Medications Acetaminophen (Tylenol 325mg Tab) 650 mg PO Q6 PRN PRN Reason: Fever >100.4 F Albuterol Sulfate (Albuterol 0.083% Inhal Claudia (2.5 Mg/3 Ml) Ud) 2.5 mg INH RQ6 PRN PRN Reason: Wheezing Last Admin: 08/05/16 08:04 Dose: 2.5 mg Aspirin (Aspirin Chewable) 81 mg PO DAILY [facility] Last Admin: 08/05/16 09:06 Dose: 81 mg Carvedilol (Coreg) 6.25 mg PO BID [facility] Last Admin: 08/05/16 09:07 Dose: 6.25 mg Clopidogrel Bisulfate (Plavix) 75 mg PO DAILY [facility] Last Admin: 08/05/16 09:06 Dose: 75 mg Famotidine (Pepcid) 20 mg IVP Q12 [facility] Last Admin: 08/05/16 09:08 Dose: 20 mg Ferrous Sulfate (Feosol Liq) 300 mg PO TID [facility] Last Admin: 08/05/16 09:07 Dose: 300 mg Furosemide (Lasix) 40 mg IVP Q12 [facility] Last Admin: 08/05/16 09:07 Dose: 40 mg Heparin Sodium (Porcine) (Heparin) 5,000 units SC Q12 [facility] Last Admin: 08/05/16 09:07 Dose: 5,000 units Piperacillin Sod/Tazobactam Sod (Zosyn 3.375 Gm Iv Premix) 3.375 gm in 50 mls @ 100 mls/hr IVPB Q6H [facility] Last Admin: 08/05/16 09:08 Dose: 100 mls/hr Sodium Phosphate 15 mmole/ (Sodium Chloride) 255 mls @ 50 mls/hr IVPB .Q5H6M ONE Stop: 08/05/16 11:47 Last Admin: 08/05/16 08:17 Dose: 50 mls/hr Potassium Chloride (Potassium Chloride 20 Meq/100 Ml) 20 meq in 100 mls @ 50 mls/hr IVPB ONCE ONE Stop: 08/05/16 11:59 Last Admin: 08/05/16 09:06 Dose: 50 mls/hr Insulin Human Regular (Novolin R) 0 unit SC Q6H [facility] PRN Reason: Protocol Last Admin: 08/05/16 06:23 Dose: Not Given Ipratropium [place] (Atrovent) 0.5 mg IH RQ6 PRN PRN Reason: Wheezing Last Admin: 08/05/16 08:04 Dose: 0.5 mg Magnesium Hydroxide (Milk Of Magnesia) 30 ml PO BID PRN PRN Reason: Constipation Last Admin: 08/02/16 12:13 Dose: 30 ml Midazolam HCl (Versed Inj) 1 mg IVP Q4 PRN PRN Reason: Sedation Rosuvastatin Calcium (Crestor) 5 mg PO HS [facility] Last Admin: 08/04/16 21:59 Dose: 5 mg Sennosides (Senokot Tab) 8.6 mg NG DAILY [facility] Last Admin: 08/05/16 09:10 Dose: 8.6 mg - Labs Labs: 08/05/16 06:14 08/05/16 06:14 PT 13.3 SECONDS (9.7-12.2) H 08/05/16 06:14 INR 1.2 08/05/16 06:14 APTT 31 SECONDS (21-34) D 08/05/16 06:14 - Constitutional Appears: Toxic, No Acute Distress - Head Exam Head Exam: ATRAUMATIC, NORMAL INSPECTION - ENT Exam Additional comments: ETT and OGT in place. - Respiratory Exam Respiratory Exam: Clear to Ausculation Bilateral, NORMAL BREATHING PATTERN. absent: Rhonchi - Cardiovascular Exam Cardiovascular Exam: RRR, +S1, +S2 - GI/Abdominal Exam GI & Abdominal Exam: Soft, Normal Bowel Sounds. absent: Tenderness - Extremities Exam Extremities Exam: Normal Inspection. absent: Calf Tenderness, Pedal Edema - Neurological Exam Neurological Exam: Alert, Awake - Skin Skin Exam: Intact, Normal Color, Warm Assessment and Plan (1) CHF (congestive heart failure) Assessment & Plan: Pt will be scheduled for cardiac cath to evaluate for CAD Previous echocardiogram with EF 35%, akinetic and dyskinetic Continue current medical management Status: Acute (2) Afib Assessment & Plan: Pt remains rate controlled in A-fib Will need EPS and possible ICD when stable Status: Acute
--- NOTE | 2016-08-05 14:02 | RAD ---
HISTORY: ET Tube evaluation COMPARISON: OpenNo prior. FINDINGS: In situ ETT LUNGS: In situ ETT, tip of which lies approximately 2.9 cm above maddy. NGT is present, tip of which has not been included on this film though distal aspect does lie below EG junction. No change right IJ central venous line with tip in the SVC. Suspect mild bibasilar atelectasis left greater than right. There may also be small left-sided effusion. PLEURA: No evidence of pneumothorax apparent. CARDIOVASCULAR: Cardiomegaly. OSSEOUS STRUCTURES: No significant abnormalities. VISUALIZED UPPER ABDOMEN: Normal. OTHER FINDINGS: None. IMPRESSION: Support lines and tubes as above. Suspect mild bibasilar atelectasis left greater than right. There may also be small left-sided effusion.
[2016-08-05] MEDS ORDERED: Acetaminophen IV 1,000 MG in Premixed IV 1 EA IV ONE (14:25)
[2016-08-05] MEDS: Midazolam 2 MG/2 ML VIAL IVP PRN ×2 (19:57→23:58)
--- NOTE | 2016-08-05 21:01 | CP.PCM.CON ---
History of Present Illness - History of Present Illness History of Present Illness: 81 F with Hx of CAD s/p RCA stent, LAD disease medically being managed admitted for pulmonary edema and intubated ECHO reveals low EF with severe MR. Cardiac cath requested 81 y/o F with PMH of A-fib, HTN, CHF with EF of 35%, CAD with stent placement in the right coronary artery, COPD, DM, and RA presented by ambulance to the ED on 08/02/16. Pt is intubated and currently coming off sedation, information collected is from prior medical records. Pt was complaining of shortness of breath at home and called EMS. Upon arrival, patient was found to be in V-tach. Pt was cardioverted at this time. The patient was intubated in the emergency department. The patient was initially placed on Amiodarone drip, but was taken off. Pt remains in A-fib at this time. Complete ROS unable to be obtained at this time due to patient's acute condition. PMH: A-fib, CAD, HTN, DM, COPD, CHF, RA PSH: Cholecystectomy,Right Coronary stent Allergies: moxifloxacin Family hx: Unknown Review of Systems - Review of Systems Systems not reviewed;Unavailable: Intubated Physical Exam - Constitutional Appears: Toxic, No Acute Distress - Head Exam Head Exam: ATRAUMATIC, NORMAL INSPECTION, NORMOCEPHALIC - ENT Exam ENT Exam: Mucous Membranes Dry Additional comments: OG tube in place ET tube in place - Respiratory Exam Respiratory Exam: Rales (B/l bases), NORMAL BREATHING PATTERN. absent: Rhonchi - Cardiovascular Exam Cardiovascular Exam: Irregular Rhythm, +S1, +S2 - GI/Abdominal Exam GI & Abdominal Exam: Normal Bowel Sounds, Soft. absent: Tenderness - Extremities Exam Extremities exam: Positive for: normal inspection. Negative for: pedal edema - Neurological Exam Neurological exam: Alert - Skin Skin Exam: Intact, Normal Color, Warm Past Patient History - Infectious Disease Hx of Infectious Diseases: None - Tetanus Immunizations Tetanus Immunization: Unknown - Past Medical History & Family History Past Medical History?: Yes - Past Social History Smoking Status: Never Smoked - CARDIAC Hx Atrial Fibrillation: Yes Hx Congestive Heart Failure: Yes Hx Hypercholesterolemia: Yes Hx Hypertension: Yes - PULMONARY Hx Asthma: Yes Hx Chronic Obstructive Pulmonary Disease (COPD): Yes Hx Pneumonia: Yes (08/2015) - NEUROLOGICAL Hx Dementia: Yes - HEENT Hx HEENT Problems: No - RENAL Hx Chronic Kidney Disease: No Hx Kidney Stones: No - ENDOCRINE/METABOLIC Hx Hyperthyroidism: No Hx Hypothyroidism: No - HEMATOLOGICAL/ONCOLOGICAL Hx Anemia: No Hx Human Immunodeficiency Virus (HIV): No Hx Sickle Cell Disease: No - INTEGUMENTARY Hx Dermatological Problems: No - MUSCULOSKELETAL/RHEUMATOLOGICAL Hx Arthritis: Yes Hx Osteoporosis: Yes Hx Rheumatoid Arthritis: Yes - GASTROINTESTINAL Hx Gall Bladder Disease: Yes - GENITOURINARY/GYNECOLOGICAL Hx Sexually Transmitted Disorders: No - PSYCHIATRIC Hx Anxiety: Yes Hx Substance Use: No - SURGICAL HISTORY Hx Cholecystectomy: Yes Hx Coronary Stent: Yes (proximal RCA stent) - ANESTHESIA Hx Anesthesia: Yes Hx Anesthesia Reactions: No Hx Malignant Hyperthermia: No Meds Allergies/Adverse Reactions: Allergies Allergy/AdvReac Type Severity Reaction Status Date / Time moxifloxacin HCl Allergy Severe ANAPHYLAXIS Verified 08/02/16 04:16 [From Avelox] - Medications Medications: Current Medications Acetaminophen (Tylenol 325mg Tab) 650 mg PO Q6 PRN PRN Reason: Fever >100.4 F Albuterol Sulfate (Albuterol 0.083% Inhal Claudia (2.5 Mg/3 Ml) Ud) 2.5 mg INH RQ6 PRN PRN Reason: Wheezing Last Admin: 08/05/16 19:48 Dose: 2.5 mg Aspirin (Aspirin Chewable) 81 mg PO DAILY [facility] Last Admin: 08/05/16 09:06 Dose: 81 mg Carvedilol (Coreg) 6.25 mg PO BID [facility] Last Admin: 08/05/16 17:22 Dose: Not Given Clopidogrel Bisulfate (Plavix) 75 mg PO DAILY [facility] Last Admin: 08/05/16 09:06 Dose: 75 mg Famotidine (Pepcid) 20 mg IVP Q12 [facility] Last Admin: 08/05/16 09:08 Dose: 20 mg Ferrous Sulfate (Feosol Liq) 300 mg PO TID [facility] Last Admin: 08/05/16 17:22 Dose: Not Given Furosemide (Lasix) 40 mg IVP Q12 [facility] Last Admin: 08/05/16 09:07 Dose: 40 mg Heparin Sodium (Porcine) (Heparin) 5,000 units SC Q12 [facility] Last Admin: 08/05/16 09:07 Dose: 5,000 units Piperacillin Sod/Tazobactam Sod (Zosyn 3.375 Gm Iv Premix) 3.375 gm in 50 mls @ 100 mls/hr IVPB Q6H [facility] Last Admin: 08/05/16 14:40 Dose: 100 mls/hr Insulin Human Regular (Novolin R) 0 unit SC Q6H [facility] PRN Reason: Protocol Last Admin: 08/05/16 19:04 Dose: Not Given Ipratropium [place] (Atrovent) 0.5 mg IH RQ6 PRN PRN Reason: Wheezing Last Admin: 08/05/16 19:48 Dose: 0.5 mg Magnesium Hydroxide (Milk Of Magnesia) 30 ml PO BID PRN PRN Reason: Constipation Last Admin: 08/02/16 12:13 Dose: 30 ml Midazolam HCl (Versed Inj) 1 mg IVP Q4 PRN PRN Reason: Sedation Last Admin: 08/05/16 19:57 Dose: 1 mg Rosuvastatin Calcium (Crestor) 5 mg PO HS [facility] Last Admin: 08/04/16 21:59 Dose: 5 mg Sennosides (Senokot Tab) 8.6 mg NG DAILY [facility] Last Admin: 08/05/16 09:10 Dose: 8.6 mg Results - Vital Signs Recent Vital Signs: Last Vital Signs Temp 98.4 F 08/05/16 20:00 Pulse 67 08/05/16 20:24 Resp 23 08/05/16 20:24 BP 88/47 L 08/05/16 20:24 Pulse Ox 100 08/05/16 20:24 - Labs Result Diagrams: 08/05/16 06:14 08/05/16 06:14 Labs: Laboratory Results - last 24 hr 08/05/16 08/05/16 08/05/16 00:02 05:49 06:14 WBC 13.6 H RBC 3.86 Hgb 8.8 L Hct 27.7 L MCV 71.6 L MCH 22.8 L MCHC 31.9 L RDW 20.1 H Plt Count 236 MPV 10.3 Neut % (Auto) 73.7 Lymph % (Auto) 9.2 L Johnson % (Auto) 9.7 Eos % (Auto) 6.5 H Baso % (Auto) 0.9 Neut # 10.0 H Lymph # 1.2 Johnson # 1.3 H Eos # 0.9 H Baso # 0.1 Neutrophils % (Manual) 65 Band Neutrophils % 3 H Lymphocytes % (Manual) 11 L Monocytes % (Manual) 11 H Eosinophils % (Manual) 9 H Basophils % (Manual) 1 Platelet Estimate Normal Large Platelets Present Giant Platelets Present Polychromasia Slight Hypochromasia (manual) Moderate Poikilocytosis (manual Slight Anisocytosis (manual) Moderate Target Cells Slight Ovalocytes Slight Schistocytes Slight PT INR APTT Puncture Site Rb pCO2 37 pO2 106 H HCO3 30.9 H ABG pH 7.53 H ABG Total CO2 32.0 H ABG O2 Saturation 99.0 H ABG Base Excess 7.7 H ABG Hemoglobin 9.2 L ABG Carboxyhemoglobin 1.7 H POC ABG HHb (Measured) 1.0 ABG Methemoglobin 0.8 Gael Test Na A-a O2 Difference 133.0 Respiratory Index 1.3 Hgb O2 Saturation 96.5 Mechanical Rate 12 FiO2 40.0 Tidal Volume 400 PEEP 5 Sodium Potassium Chloride Carbon Dioxide Anion Gap BUN Creatinine Est GFR ( Amer) Est GFR (Non-Af Amer) POC Glucose (mg/dL) 133 H Random Glucose Calcium Phosphorus Magnesium Total Bilirubin AST ALT Alkaline Phosphatase Total Protein Albumin Globulin Albumin/Globulin Ratio 08/05/16 08/05/16 08/05/16 06:14 06:14 06:18 WBC RBC Hgb Hct MCV MCH MCHC RDW Plt Count MPV Neut % (Auto) Lymph % (Auto) Johnson % (Auto) Eos % (Auto) Baso % (Auto) Neut # Lymph # Johnson # Eos # Baso # Neutrophils % (Manual) Band Neutrophils % Lymphocytes % (Manual) Monocytes % (Manual) Eosinophils % (Manual) Basophils % (Manual) Platelet Estimate Large Platelets Giant Platelets Polychromasia Hypochromasia (manual) Poikilocytosis (manual Anisocytosis (manual) Target Cells Ovalocytes Schistocytes PT 13.3 H INR 1.2 APTT 31 D Puncture Site pCO2 pO2 HCO3 ABG pH ABG Total CO2 ABG O2 Saturation ABG Base Excess ABG Hemoglobin ABG Carboxyhemoglobin POC ABG HHb (Measured) ABG Methemoglobin Gael Test A-a O2 Difference Respiratory Index Hgb O2 Saturation Mechanical Rate FiO2 Tidal Volume PEEP Sodium 140 Potassium 3.1 L Chloride 97 L Carbon Dioxide 31 H Anion Gap 15 BUN 24 H Creatinine 0.9 Est GFR ( Amer) > 60 Est GFR (Non-Af Amer) 60 POC Glucose (mg/dL) 128 H Random Glucose 114 H Calcium 8.2 L Phosphorus 2.9 Magnesium 2.3 Total Bilirubin 1.2 AST 22 ALT 16 Alkaline Phosphatase 103 Total Protein 7.2 Albumin 3.7 Globulin 3.5 Albumin/Globulin Ratio 1.1 08/05/16 08/05/16 12:02 18:03 WBC RBC Hgb Hct MCV MCH MCHC RDW Plt Count MPV Neut % (Auto) Lymph % (Auto) Johnson % (Auto) Eos % (Auto) Baso % (Auto) Neut # Lymph # Johnson # Eos # Baso # Neutrophils % (Manual) Band Neutrophils % Lymphocytes % (Manual) Monocytes % (Manual) Eosinophils % (Manual) Basophils % (Manual) Platelet Estimate Large Platelets Giant Platelets Polychromasia Hypochromasia (manual) Poikilocytosis (manual Anisocytosis (manual) Target Cells Ovalocytes Schistocytes PT INR APTT Puncture Site pCO2 pO2 HCO3 ABG pH ABG Total CO2 ABG O2 Saturation ABG Base Excess ABG Hemoglobin ABG Carboxyhemoglobin POC ABG HHb (Measured) ABG Methemoglobin Gael Test A-a O2 Difference Respiratory Index Hgb O2 Saturation Mechanical Rate FiO2 Tidal Volume PEEP Sodium Potassium Chloride Carbon Dioxide Anion Gap BUN Creatinine Est GFR ( Amer) Est GFR (Non-Af Amer) POC Glucose (mg/dL) 116 H 116 H Random Glucose Calcium Phosphorus Magnesium Total Bilirubin AST ALT Alkaline Phosphatase Total Protein Albumin Globulin Albumin/Globulin Ratio Assessment & Plan - Assessment and Plan (Free Text) Assessment: Assessment and Plan (1) CHF (congestive heart failure) Assessment & Plan: Pt will be scheduled for cardiac cath to evaluate for CAD Previous echocardiogram with EF 35%, akinetic and dyskinetic Continue current medical management Status: Acute (2) Afib Assessment & Plan: Pt remains rate controlled in A-fib Will need EPS and possible ICD when stable Status: Acute
[2016-08-06] MEDS: (Novolin R) Insulin Human Regular 100 units/ml vial SC SCH ×4 (00:33→18:42)
[2016-08-06] MEDS: Piperacill/Tazo 3.375gm in Dex 3.375 GM/50 ML BAG IVPB SCH ×4 (03:30→21:28)
[2016-08-06 07:03] LABS: BASO # 0.2 K/uL (0.0-0.2); BASO % 2.3 % (0.0-2.0); EOS # 1.1 K/uL (0.0-0.7); EOS % 12.1 % (0.0-4.0); HEMATOCRIT 28.8 % (34.0-47.0); LYMPH # 1.5 K/uL (1.0-4.3); LYMPH % 16.4 % (20.0-40.0); MEAN CELL VOLUME 71.2 fL (81.0-99.0); MEAN CORPUSCULAR HEMOGLOBIN 22.6 pg (27.0-31.0); MEAN CORPUSCULAR HGB CONC 31.8 g/dL (33.0-37.0); MEAN PLATELET VOLUME 10.3 fL (7.2-11.7); MONO % 10.6 % (0.0-10.0); NRBC % 0.3 % (0.0-2.0); RED CELL DISTRIBUTION WIDTH 20.1 % (11.5-14.5); WHITE BLOOD COUNT 9.3 K/uL (4.8-10.8)
[2016-08-06 07:22] LABS: POTASSIUM 3.1 mmol/L (3.6-5.2)
[2016-08-06 07:24] LABS: BILIRUBIN,TOTAL 1.5 mg/dL (0.2-1.3); TOTAL PROTEIN 7.6 g/dL (6.3-8.3)
[2016-08-06 07:25] LABS: CALCIUM 9.4 mg/dl (8.6-10.4); MAGNESIUM 2.4 mg/dL (1.6-2.3); PHOSPHOROUS 5.1 mg/dL (2.5-4.5)
--- NOTE | 2016-08-06 07:33 | CP.PCM.PN ---
Subjective - Date & Time of Evaluation Date of Evaluation: 08/06/16 Time of Evaluation: 07:10 Objective - Vital Signs/Intake and Output Vital Signs (last 24 hours): Temp Pulse Resp BP Pulse Ox 98.4 F 73 20 98/60 L 100 08/06/16 04:00 08/06/16 06:24 08/06/16 06:24 08/06/16 06:24 08/06/16 06:24 Intake and Output: 08/06/16 08/06/16 06:59 18:59 Intake Total 100 Output Total 780 Balance -680 - Medications Medications: Current Medications Acetaminophen (Tylenol 325mg Tab) 650 mg PO Q6 PRN PRN Reason: Fever >100.4 F Albuterol Sulfate (Albuterol 0.083% Inhal Claudia (2.5 Mg/3 Ml) Ud) 2.5 mg INH RQ6 PRN PRN Reason: Wheezing Last Admin: 08/05/16 19:48 Dose: 2.5 mg Aspirin (Aspirin Chewable) 81 mg PO DAILY [facility] Last Admin: 08/05/16 09:06 Dose: 81 mg Carvedilol (Coreg) 6.25 mg PO BID [facility] Last Admin: 08/05/16 17:22 Dose: Not Given Clopidogrel Bisulfate (Plavix) 75 mg PO DAILY [facility] Last Admin: 08/05/16 09:06 Dose: 75 mg Famotidine (Pepcid) 20 mg IVP Q12 [facility] Last Admin: 08/05/16 22:47 Dose: 20 mg Ferrous Sulfate (Feosol Liq) 300 mg PO TID [facility] Last Admin: 08/05/16 17:22 Dose: Not Given Furosemide (Lasix) 40 mg IVP Q12 [facility] Last Admin: 08/05/16 22:46 Dose: 40 mg Heparin Sodium (Porcine) (Heparin) 5,000 units SC Q12 [facility] Last Admin: 08/05/16 22:46 Dose: 5,000 units Piperacillin Sod/Tazobactam Sod (Zosyn 3.375 Gm Iv Premix) 3.375 gm in 50 mls @ 100 mls/hr IVPB Q6H [facility] Last Admin: 08/06/16 03:30 Dose: 100 mls/hr Insulin Human Regular (Novolin R) 0 unit SC Q6H [facility] PRN Reason: Protocol Last Admin: 08/06/16 05:50 Dose: Not Given Ipratropium [place] (Atrovent) 0.5 mg IH RQ6 PRN PRN Reason: Wheezing Last Admin: 08/05/16 19:48 Dose: 0.5 mg Magnesium Hydroxide (Milk Of Magnesia) 30 ml PO BID PRN PRN Reason: Constipation Last Admin: 08/02/16 12:13 Dose: 30 ml Midazolam HCl (Versed Inj) 1 mg IVP Q4 PRN PRN Reason: Sedation Last Admin: 08/05/16 23:58 Dose: 1 mg Rosuvastatin Calcium (Crestor) 5 mg PO [facility] Last Admin: 08/05/16 22:46 Dose: 5 mg Sennosides (Senokot Tab) 8.6 mg NG DAILY [facility] Last Admin: 08/05/16 09:10 Dose: 8.6 mg - Labs Labs: 08/06/16 06:59 08/06/16 06:59 PT 13.3 SECONDS (9.7-12.2) H 08/05/16 06:14 INR 1.2 08/05/16 06:14 APTT 31 SECONDS (21-34) D 08/05/16 06:14
[2016-08-06] MEDS: Ipratropium 0.02% Inhal Soln (0.5 mg/2.5 ml) UD IH PRN (07:42)
[2016-08-06] MEDS: Albuterol 0.083% Inhal Sol (2.5 mg/3 mL) UD INH PRN (07:42)
[2016-08-06] MEDS: Ferrous Sulfate 300 mg/5 mL Liq UD PO SCH ×3 (10:37→18:41)
--- NOTE | 2016-08-06 20:32 | CP.PCM.PN ---
Subjective - Date & Time of Evaluation Date of Evaluation: 08/06/16 Time of Evaluation: 07:00 - Subjective Subjective: Patient seen and evaluated in ICU Extubated and comfortable Physical Exam - Constitutional Appears: Toxic, No Acute Distress - Head Exam Head Exam: ATRAUMATIC, NORMAL INSPECTION, NORMOCEPHALIC - ENT Exam ENT Exam: Mucous Membranes Dry Additional comments: - Respiratory Exam Respiratory Exam: CTA - Cardiovascular Exam Cardiovascular Exam: Irregular Rhythm, +S1, +S2 - GI/Abdominal Exam GI & Abdominal Exam: Normal Bowel Sounds, Soft. absent: Tenderness - Extremities Exam Extremities exam: Positive for: normal inspection. Negative for: pedal edema - Neurological Exam Neurological exam: Alert O x 3 - Skin Skin Exam: Intact, Normal Color, Warm Objective - Vital Signs/Intake and Output Vital Signs (last 24 hours): Temp Pulse Resp BP Pulse Ox 98.1 F 85 22 102/60 82 L 08/06/16 18:00 08/06/16 20:00 08/06/16 20:00 08/06/16 19:23 08/06/16 20:00 Intake and Output: 08/06/16 08/07/16 18:59 06:59 Intake Total 1100 50 Output Total 365 Balance 735 50 - Medications Medications: Current Medications Acetaminophen (Tylenol 325mg Tab) 650 mg PO Q6 PRN PRN Reason: Fever >100.4 F Last Admin: 08/06/16 10:36 Dose: 650 mg Albuterol Sulfate (Albuterol 0.083% Inhal Claudia (2.5 Mg/3 Ml) Ud) 2.5 mg INH RQ6 PRN PRN Reason: Wheezing Last Admin: 08/06/16 07:42 Dose: 2.5 mg Alprazolam (Xanax) 0.5 mg PO Q12 [facility] Last Admin: 08/06/16 10:37 Dose: 0.5 mg Aspirin (Aspirin Chewable) 81 mg PO DAILY [facility] Last Admin: 08/06/16 10:36 Dose: 81 mg Carvedilol (Coreg) 6.25 mg PO BID [facility] Last Admin: 08/06/16 18:41 Dose: 6.25 mg Clopidogrel Bisulfate (Plavix) 75 mg PO DAILY [facility] Last Admin: 08/06/16 10:36 Dose: 75 mg Famotidine (Pepcid) 20 mg IVP Q12 [facility] Last Admin: 08/06/16 10:37 Dose: 20 mg Ferrous Sulfate (Feosol Liq) 300 mg PO TID [facility] Last Admin: 08/06/16 18:41 Dose: 300 mg Furosemide (Lasix) 40 mg IVP DAILY [facility] Last Admin: 08/06/16 10:37 Dose: 40 mg Heparin Sodium (Porcine) (Heparin) 5,000 units SC Q12 [facility] Last Admin: 08/06/16 10:37 Dose: 5,000 units Piperacillin Sod/Tazobactam Sod (Zosyn 3.375 Gm Iv Premix) 3.375 gm in 50 mls @ 100 mls/hr IVPB Q6H [facility] Last Admin: 08/06/16 14:45 Dose: 100 mls/hr Insulin Human Regular (Novolin R) 0 unit SC Q6H [facility] PRN Reason: Protocol Last Admin: 08/06/16 18:42 Dose: Not Given Ipratropium [place] (Atrovent) 0.5 mg IH RQ6 PRN PRN Reason: Wheezing Last Admin: 08/06/16 07:42 Dose: 0.5 mg Magnesium Hydroxide (Milk Of Magnesia) 30 ml PO BID PRN PRN Reason: Constipation Last Admin: 08/02/16 12:13 Dose: 30 ml Midazolam HCl (Versed Inj) 1 mg IVP Q4 PRN PRN Reason: Sedation Last Admin: 08/05/16 23:58 Dose: 1 mg Rosuvastatin Calcium (Crestor) 5 mg PO HS [facility] Last Admin: 08/05/16 22:46 Dose: 5 mg Sennosides (Senokot Tab) 8.6 mg NG DAILY [facility] Last Admin: 08/06/16 10:37 Dose: 8.6 mg - Labs Labs: 08/06/16 06:59 08/06/16 06:59 PT 13.3 SECONDS (9.7-12.2) H 08/05/16 06:14 INR 1.2 08/05/16 06:14 APTT 31 SECONDS (21-34) D 08/05/16 06:14 Assessment and Plan - Assessment and Plan (Free Text) Assessment: Assessment and Plan (1) CHF (congestive heart failure) Assessment & Plan: Pt is scheduled for cardiac cath to evaluate for CAD Echocardiogram with EF 35%, akinetic and dyskinetic Continue current medical management Status: Acute (2) Afib Assessment & Plan: Pt remains rate controlled in A-fib Will need EPS and possible ICD when stable Status: Acute
[2016-08-06] MEDS: Midazolam 2 MG/2 ML VIAL IVP PRN (22:17)
[2016-08-07] MEDS: (Novolin R) Insulin Human Regular 100 units/ml vial SC SCH ×5 (00:35→21:41)
[2016-08-07] MEDS: Piperacill/Tazo 3.375gm in Dex 3.375 GM/50 ML BAG IVPB SCH ×4 (03:39→21:40)
--- NOTE | 2016-08-07 06:55 | CP.PCM.PN ---
Subjective - Date & Time of Evaluation Date of Evaluation: 08/07/16 Time of Evaluation: 06:48 Objective - Vital Signs/Intake and Output Vital Signs (last 24 hours): Temp Pulse Resp BP Pulse Ox 97.7 F 75 13 105/65 100 08/07/16 04:00 08/07/16 06:00 08/07/16 06:00 08/07/16 05:26 08/07/16 06:00 Intake and Output: 08/06/16 08/07/16 18:59 06:59 Intake Total 1100 200 Output Total 365 Balance 735 200 - Medications Medications: Current Medications Acetaminophen (Tylenol 325mg Tab) 650 mg PO Q6 PRN PRN Reason: Fever >100.4 F Last Admin: 08/07/16 06:51 Dose: 650 mg Albuterol Sulfate (Albuterol 0.083% Inhal Claudia (2.5 Mg/3 Ml) Ud) 2.5 mg INH RQ6 PRN PRN Reason: Wheezing Last Admin: 08/06/16 07:42 Dose: 2.5 mg Alprazolam (Xanax) 0.5 mg PO Q12 [facility] Last Admin: 08/06/16 21:29 Dose: 0.5 mg Aspirin (Aspirin Chewable) 81 mg PO DAILY [facility] Last Admin: 08/06/16 10:36 Dose: 81 mg Carvedilol (Coreg) 6.25 mg PO BID [facility] Last Admin: 08/06/16 18:41 Dose: 6.25 mg Clopidogrel Bisulfate (Plavix) 75 mg PO DAILY [facility] Last Admin: 08/06/16 10:36 Dose: 75 mg Famotidine (Pepcid) 20 mg IVP Q12 [facility] Last Admin: 08/06/16 21:29 Dose: 20 mg Ferrous Sulfate (Feosol Liq) 300 mg PO TID [facility] Last Admin: 08/06/16 18:41 Dose: 300 mg Furosemide (Lasix) 40 mg IVP DAILY [facility] Last Admin: 08/06/16 10:37 Dose: 40 mg Heparin Sodium (Porcine) (Heparin) 5,000 units SC Q12 [facility] Last Admin: 08/06/16 21:29 Dose: 5,000 units Piperacillin Sod/Tazobactam Sod (Zosyn 3.375 Gm Iv Premix) 3.375 gm in 50 mls @ 100 mls/hr IVPB Q6H [facility] Last Admin: 08/07/16 03:39 Dose: 100 mls/hr Insulin Human Regular (Novolin R) 0 unit SC Q6H [facility] PRN Reason: Protocol Last Admin: 08/07/16 05:44 Dose: Not Given Ipratropium [place] (Atrovent) 0.5 mg IH RQ6 PRN PRN Reason: Wheezing Last Admin: 08/06/16 07:42 Dose: 0.5 mg Magnesium Hydroxide (Milk Of Magnesia) 30 ml PO BID PRN PRN Reason: Constipation Last Admin: 08/02/16 12:13 Dose: 30 ml Midazolam HCl (Versed Inj) 1 mg IVP Q4 PRN PRN Reason: Sedation Last Admin: 08/06/16 22:17 Dose: 1 mg Rosuvastatin Calcium (Crestor) 5 mg PO HS [facility] Last Admin: 08/06/16 21:29 Dose: 5 mg Sennosides (Senokot Tab) 8.6 mg NG DAILY [facility] Last Admin: 08/06/16 10:37 Dose: 8.6 mg - Labs Labs: 08/06/16 06:59 08/06/16 06:59 PT 13.3 SECONDS (9.7-12.2) H 08/05/16 06:14 INR 1.2 08/05/16 06:14 APTT 31 SECONDS (21-34) D 08/05/16 06:14
[2016-08-07] MEDS: Ipratropium 0.02% Inhal Soln (0.5 mg/2.5 ml) UD IH PRN (07:40)
[2016-08-07] MEDS: Albuterol 0.083% Inhal Sol (2.5 mg/3 mL) UD INH PRN ×2 (07:40→19:28)
[2016-08-07] MEDS: Ferrous Sulfate 300 mg/5 mL Liq UD PO SCH ×3 (09:11→18:07)
--- NOTE | 2016-08-07 18:44 | CP.PCM.PN ---
Subjective - Date & Time of Evaluation Date of Evaluation: 08/07/16 Time of Evaluation: 08:30 - Subjective Subjective: Patient for Cath tomorrow at 2pm No cardiac issues today Physical Exam - Constitutional Appears: Toxic, No Acute Distress - Head Exam Head Exam: ATRAUMATIC, NORMAL INSPECTION, NORMOCEPHALIC - ENT Exam ENT Exam: Mucous Membranes Dry Additional comments: - Respiratory Exam Respiratory Exam: CTA - Cardiovascular Exam Cardiovascular Exam: Irregular Rhythm, +S1, +S2 - GI/Abdominal Exam GI & Abdominal Exam: Normal Bowel Sounds, Soft. absent: Tenderness - Extremities Exam Extremities exam: Positive for: normal inspection. Negative for: pedal edema - Neurological Exam Neurological exam: Alert O x 3 - Skin Skin Exam: Intact, Normal Color, Warm Objective - Vital Signs/Intake and Output Vital Signs (last 24 hours): Temp Pulse Resp BP Pulse Ox 99 F 69 20 113/65 100 08/07/16 16:00 08/07/16 18:00 08/07/16 18:00 08/07/16 17:26 08/07/16 18:00 Intake and Output: 08/07/16 08/07/16 06:59 18:59 Intake Total 200 450 Output Total 350 Balance 200 100 - Medications Medications: Current Medications Acetaminophen (Tylenol 325mg Tab) 650 mg PO Q6 PRN PRN Reason: Fever >100.4 F Last Admin: 08/07/16 06:51 Dose: 650 mg Albuterol Sulfate (Albuterol 0.083% Inhal Claudia (2.5 Mg/3 Ml) Ud) 2.5 mg INH RQ6 PRN PRN Reason: Shortness of Breath Alprazolam (Xanax) 0.5 mg PO Q12 [facility] Last Admin: 08/07/16 09:13 Dose: 0.5 mg Aspirin (Aspirin Chewable) 81 mg PO DAILY [facility] Last Admin: 08/07/16 09:16 Dose: 81 mg Carvedilol (Coreg) 6.25 mg PO BID [facility] Last Admin: 08/07/16 18:07 Dose: 6.25 mg Clopidogrel Bisulfate (Plavix) 75 mg PO DAILY [facility] Last Admin: 08/07/16 09:11 Dose: 75 mg Famotidine (Pepcid) 20 mg IVP Q12 [facility] Last Admin: 08/07/16 09:11 Dose: 20 mg Ferrous Sulfate (Feosol Liq) 300 mg PO TID [facility] Last Admin: 08/07/16 18:07 Dose: 300 mg Furosemide (Lasix) 40 mg IVP DAILY [facility] Last Admin: 08/07/16 09:11 Dose: 40 mg Piperacillin Sod/Tazobactam Sod (Zosyn 3.375 Gm Iv Premix) 3.375 gm in 50 mls @ 100 mls/hr IVPB Q6H [facility] Last Admin: 08/07/16 15:51 Dose: 100 mls/hr Insulin Human Regular (Novolin R) 0 unit SC ACHS [facility] PRN Reason: Protocol Last Admin: 08/07/16 17:12 Dose: Not Given Ipratropium [place] (Atrovent) 0.5 mg IH RQ6 PRN PRN Reason: Wheezing Last Admin: 08/07/16 07:40 Dose: 0.5 mg Magnesium Hydroxide (Milk Of Magnesia) 30 ml PO BID PRN PRN Reason: Constipation Last Admin: 08/02/16 12:13 Dose: 30 ml Rosuvastatin Calcium (Crestor) 5 mg PO HS [facility] Last Admin: 08/06/16 21:29 Dose: 5 mg Sennosides (Senokot Tab) 8.6 mg NG DAILY [facility] Last Admin: 08/07/16 09:16 Dose: Not Given - Labs Labs: 08/06/16 06:59 08/06/16 06:59 PT 13.3 SECONDS (9.7-12.2) H 08/05/16 06:14 INR 1.2 08/05/16 06:14 APTT 31 SECONDS (21-34) D 08/05/16 06:14 Assessment and Plan - Assessment and Plan (Free Text) Assessment: Assessment and Plan (1) CHF (congestive heart failure) Assessment & Plan: Pt is scheduled for cardiac cath to evaluate for CAD Echocardiogram with EF 35%, akinetic and dyskinetic Continue current medical management Status: Acute (2) Afib Assessment & Plan: Pt remains rate controlled in A-fib Will need EPS and possible ICD when stable Status: Acute Patient for cath tomorrow at 2pm
[2016-08-08] MEDS: Piperacill/Tazo 3.375gm in Dex 3.375 GM/50 ML BAG IVPB SCH ×4 (03:59→21:09)
[2016-08-08 06:32] LABS: BASO # 0.1 K/uL (0.0-0.2); BASO % 1.5 % (0.0-2.0); EOS % 12.4 % (0.0-4.0); HEMATOCRIT 29.4 % (34.0-47.0); LYMPH # 1.9 K/uL (1.0-4.3); LYMPH % 23.8 % (20.0-40.0); MEAN CELL VOLUME 71.2 fL (81.0-99.0); MEAN CORPUSCULAR HEMOGLOBIN 22.4 pg (27.0-31.0); MEAN CORPUSCULAR HGB CONC 31.5 g/dL (33.0-37.0); MONO # 0.9 K/uL (0.0-0.8); MONO % 11.2 % (0.0-10.0); NRBC % 0.3 % (0.0-2.0); RED CELL DISTRIBUTION WIDTH 19.7 % (11.5-14.5); WHITE BLOOD COUNT 8.2 K/uL (4.8-10.8)
[2016-08-08 06:40] LABS: CHLORIDE 95 mmol/L (98-107); POTASSIUM 2.9 mmol/L (3.6-5.2); SODIUM 137 mmol/L (132-148)
[2016-08-08 06:42] LABS: GFR AFRICAN-AMERICAN > 60
[2016-08-08 06:43] LABS: ALB/GLOB RATIO 1.1 (1.0-2.1); ALKALINE PHOSPHATASE 82 U/L (38-126); ALT/SGPT 13 U/L (9-52); AST/SGOT 19 U/L (14-36); BILIRUBIN,TOTAL 0.9 mg/dL (0.2-1.3); BLOOD UREA NITROGEN 19 mg/dL (7-17); CALCIUM 8.8 mg/dl (8.6-10.4); CARBON DIOXIDE 30 mmol/L (22-30); GLUCOSE,RANDOM 106 mg/dL (65-105); TOTAL PROTEIN 7.3 g/dL (6.3-8.3)
[2016-08-08 06:48] LABS: INR 1.1
[2016-08-08] MEDS: Ipratropium 0.02% Inhal Soln (0.5 mg/2.5 ml) UD IH PRN (07:40)
[2016-08-08] MEDS: Albuterol 0.083% Inhal Sol (2.5 mg/3 mL) UD INH PRN (07:40)
--- NOTE | 2016-08-08 07:43 | PN ---
DATE: 08/05/2016 The patient remains on ventilator, ____, supportive care. Gisselle Vogel MD cc: [id number] TT: 08/05/2016 10:43:41 Confirmation # [id number] Dictation # [id number]
[2016-08-08] MEDS ORDERED: Albuterol-Ipratrop 3 mg / 0.5 (3 ml) UD INH PRN (07:58)
[2016-08-08] MEDS: (Novolin R) Insulin Human Regular 100 units/ml vial SC SCH ×4 (08:18→22:28)
--- NOTE | 2016-08-08 08:45 | PN ---
DATE: 08/06/2016 The patient extubated, supportive care. Gisselle Vogel MD cc: [id number] TT: 08/06/2016 18:27:36 Confirmation # [id number] Dictation # [id number]
--- NOTE | 2016-08-08 08:49 | CP.PCM.PN ---
Subjective - Date & Time of Evaluation Date of Evaluation: 08/08/16 Time of Evaluation: 08:15 - Subjective Subjective: Pt extubated low potassium Objective - Vital Signs/Intake and Output Vital Signs (last 24 hours): Temp Pulse Resp BP Pulse Ox 98.6 F 67 29 H 105/58 L 100 08/08/16 04:00 08/08/16 06:00 08/08/16 06:00 08/08/16 05:26 08/08/16 06:00 Intake and Output: 08/08/16 08/08/16 06:59 18:59 Intake Total 350 Balance 350 - Medications Medications: Current Medications Acetaminophen (Tylenol 325mg Tab) 650 mg PO Q6 PRN PRN Reason: Fever >100.4 F Last Admin: 08/07/16 20:35 Dose: 650 mg Albuterol/Ipratropium (Duoneb 3 Mg/0.5 Mg (3 Ml) Ud) 3 ml INH RQ6 [facility] Albuterol/Ipratropium (Duoneb 3 Mg/0.5 Mg (3 Ml) Ud) 3 ml INH RQ2 PRN PRN Reason: Shortness of Breath Alprazolam (Xanax) 0.5 mg PO Q12 [facility] Last Admin: 08/07/16 21:41 Dose: 0.5 mg Aspirin (Aspirin Chewable) 81 mg PO DAILY [facility] Last Admin: 08/07/16 09:16 Dose: 81 mg Carvedilol (Coreg) 6.25 mg PO BID [facility] Last Admin: 08/07/16 18:07 Dose: 6.25 mg Clopidogrel Bisulfate (Plavix) 75 mg PO DAILY [facility] Last Admin: 08/07/16 09:11 Dose: 75 mg Famotidine (Pepcid) 20 mg IVP Q12 [facility] Last Admin: 08/07/16 21:41 Dose: 20 mg Ferrous Sulfate (Feosol Liq) 300 mg PO TID [facility] Last Admin: 08/07/16 18:07 Dose: 300 mg Furosemide (Lasix) 40 mg IVP DAILY [facility] Last Admin: 08/07/16 09:11 Dose: 40 mg Heparin Sodium (Porcine) (Heparin) 5,000 units SC Q8 [facility] Last Admin: 08/08/16 05:57 Dose: 5,000 units Piperacillin Sod/Tazobactam Sod (Zosyn 3.375 Gm Iv Premix) 3.375 gm in 50 mls @ 100 mls/hr IVPB Q6H [facility] Last Admin: 08/08/16 08:09 Dose: 100 mls/hr Potassium Chloride (Potassium Chloride 20 Meq/100 Ml) 20 meq in 100 mls @ 50 mls/hr IVPB Q2 [facility] Stop: 08/08/16 11:59 Last Admin: 08/08/16 08:08 Dose: 50 mls/hr Insulin Human Regular (Novolin R) 0 unit SC ACHS [facility] PRN Reason: Protocol Last Admin: 08/08/16 08:18 Dose: Not Given Magnesium Hydroxide (Milk Of Magnesia) 30 ml PO BID PRN PRN Reason: Constipation Last Admin: 08/02/16 12:13 Dose: 30 ml Rosuvastatin Calcium (Crestor) 5 mg PO HS [facility] Last Admin: 08/07/16 21:41 Dose: 5 mg Sennosides (Senokot Tab) 8.6 mg NG DAILY [facility] Last Admin: 08/07/16 09:16 Dose: Not Given - Labs Labs: 08/08/16 06:24 08/08/16 06:24 PT 12.4 SECONDS (9.7-12.2) H 08/08/16 06:24 INR 1.1 08/08/16 06:24 APTT 30 SECONDS (21-34) 08/08/16 06:24 - Constitutional Appears: Chronically Ill - Head Exam Head Exam: ATRAUMATIC - Eye Exam Eye Exam: Normal appearance - ENT Exam ENT Exam: Mucous Membranes Moist - Respiratory Exam Respiratory Exam: NORMAL BREATHING PATTERN - Cardiovascular Exam Cardiovascular Exam: REGULAR RHYTHM - GI/Abdominal Exam GI & Abdominal Exam: Soft - Extremities Exam Extremities Exam: absent: Calf Tenderness - Neurological Exam Neurological Exam: Alert - Psychiatric Exam Psychiatric exam: absent: Anxious - Skin Skin Exam: Warm Assessment and Plan (1) CHF (congestive heart failure) Assessment & Plan: Pt for cardiac cath stable tolerting PO will supplement potassium and tx to telemetry after cath Status: Acute
[2016-08-08] MEDS: Ferrous Sulfate 300 mg/5 mL Liq UD PO SCH ×3 (09:34→18:16)
[2016-08-08] MEDS ORDERED: Potassium Chloride 20 mEq/15 ml LIQ UD PO SCH (10:00)
[2016-08-08] MEDS: Albuterol-Ipratrop 3 mg / 0.5 (3 ml) UD INH SCH ×3 (10:10→20:45)
[2016-08-08] MEDS ORDERED: Potassium Chloride 20 mEq ER Tab PO SCH (16:00)
--- NOTE | 2016-08-08 16:12 | CP.PCM.PN ---
Subjective - Date & Time of Evaluation Date of Evaluation: 08/08/16 Time of Evaluation: 11:00 Objective - Vital Signs/Intake and Output Vital Signs (last 24 hours): Temp Pulse Resp BP Pulse Ox 97.9 F 62 16 94/44 L 96 08/08/16 12:00 08/08/16 14:00 08/08/16 14:00 08/08/16 14:00 08/08/16 14:00 Intake and Output: 08/08/16 08/08/16 06:59 18:59 Intake Total 350 320 Output Total 475 Balance 350 -155 - Medications Medications: Current Medications Acetaminophen (Tylenol 325mg Tab) 650 mg PO Q6 PRN PRN Reason: Fever >100.4 F Last Admin: 08/07/16 20:35 Dose: 650 mg Albuterol/Ipratropium (Duoneb 3 Mg/0.5 Mg (3 Ml) Ud) 3 ml INH RQ6 [facility] Last Admin: 08/08/16 13:39 Dose: 3 ml Albuterol/Ipratropium (Duoneb 3 Mg/0.5 Mg (3 Ml) Ud) 3 ml INH RQ2 PRN PRN Reason: Shortness of Breath Alprazolam (Xanax) 0.5 mg PO Q12 [facility] Last Admin: 08/08/16 09:36 Dose: 0.5 mg Aspirin (Aspirin Chewable) 81 mg PO DAILY [facility] Last Admin: 08/08/16 09:35 Dose: 81 mg Carvedilol (Coreg) 6.25 mg PO BID [facility] Last Admin: 08/08/16 09:37 Dose: 6.25 mg Clopidogrel Bisulfate (Plavix) 75 mg PO DAILY [facility] Last Admin: 08/08/16 09:35 Dose: 75 mg Famotidine (Pepcid) 20 mg IVP Q12 [facility] Last Admin: 08/08/16 09:35 Dose: 20 mg Ferrous Sulfate (Feosol Liq) 300 mg PO TID [facility] Last Admin: 08/08/16 14:12 Dose: Not Given Furosemide (Lasix) 40 mg IVP DAILY [facility] Last Admin: 08/08/16 09:34 Dose: 40 mg Heparin Sodium (Porcine) (Heparin) 5,000 units SC Q8 [facility] Last Admin: 08/08/16 15:54 Dose: 5,000 units Piperacillin Sod/Tazobactam Sod (Zosyn 3.375 Gm Iv Premix) 3.375 gm in 50 mls @ 100 mls/hr IVPB Q6H [facility] Last Admin: 08/08/16 14:14 Dose: 100 mls/hr Insulin Human Regular (Novolin R) 0 unit SC ACHS [facility] PRN Reason: Protocol Last Admin: 08/08/16 11:45 Dose: Not Given Magnesium Hydroxide (Milk Of Magnesia) 30 ml PO BID PRN PRN Reason: Constipation Last Admin: 08/02/16 12:13 Dose: 30 ml Potassium Chloride (K-Dur 20 Meq Er Tab) 40 meq PO Q2H [facility] Stop: 08/08/16 20:01 Rosuvastatin Calcium (Crestor) 5 mg PO HS [facility] Last Admin: 08/07/16 21:41 Dose: 5 mg Sennosides (Senokot Tab) 8.6 mg NG DAILY [facility] Last Admin: 08/08/16 09:35 Dose: 8.6 mg - Labs Labs: 08/08/16 06:24 08/08/16 06:24 PT 12.4 SECONDS (9.7-12.2) H 08/08/16 06:24 INR 1.1 08/08/16 06:24 APTT 30 SECONDS (21-34) 08/08/16 06:24 - Constitutional Appears: Non-toxic, No Acute Distress - Head Exam Head Exam: NORMAL INSPECTION - Respiratory Exam Respiratory Exam: Clear to Ausculation Bilateral - Cardiovascular Exam Cardiovascular Exam: REGULAR RHYTHM
--- NOTE | 2016-08-08 23:06 | CP.PCM.PN ---
Subjective - Date & Time of Evaluation Date of Evaluation: 08/08/16 Time of Evaluation: 15:00 - Subjective Subjective: Patient and family refused cardiac cath today Patient denies chest pain and dyspnea Objective - Vital Signs/Intake and Output Vital Signs (last 24 hours): Temp Pulse Resp BP Pulse Ox 98.7 F 69 19 121/70 100 08/08/16 20:00 08/08/16 20:00 08/08/16 20:00 08/08/16 20:00 08/08/16 20:00 Intake and Output: 08/08/16 08/09/16 18:59 06:59 Intake Total 520 Output Total 475 Balance 45 - Medications Medications: Current Medications Acetaminophen (Tylenol 325mg Tab) 650 mg PO Q6 PRN PRN Reason: Fever >100.4 F Last Admin: 08/07/16 20:35 Dose: 650 mg Albuterol/Ipratropium (Duoneb 3 Mg/0.5 Mg (3 Ml) Ud) 3 ml INH RQ6 [facility] Last Admin: 08/08/16 20:45 Dose: 3 ml Albuterol/Ipratropium (Duoneb 3 Mg/0.5 Mg (3 Ml) Ud) 3 ml INH RQ2 PRN PRN Reason: Shortness of Breath Alprazolam (Xanax) 0.5 mg PO Q12 [facility] Last Admin: 08/08/16 21:01 Dose: 0.5 mg Aspirin (Aspirin Chewable) 81 mg PO DAILY [facility] Last Admin: 08/08/16 09:35 Dose: 81 mg Carvedilol (Coreg) 6.25 mg PO BID [facility] Last Admin: 08/08/16 18:18 Dose: 6.25 mg Clopidogrel Bisulfate (Plavix) 75 mg PO DAILY [facility] Last Admin: 08/08/16 09:35 Dose: 75 mg Famotidine (Pepcid) 20 mg IVP Q12 [facility] Last Admin: 08/08/16 22:30 Dose: 20 mg Ferrous Sulfate (Feosol Liq) 300 mg PO TID [facility] Last Admin: 08/08/16 18:16 Dose: 300 mg Furosemide (Lasix) 40 mg IVP DAILY [facility] Last Admin: 08/08/16 09:34 Dose: 40 mg Heparin Sodium (Porcine) (Heparin) 5,000 units SC Q8 [facility] Last Admin: 08/08/16 21:01 Dose: 5,000 units Piperacillin Sod/Tazobactam Sod (Zosyn 3.375 Gm Iv Premix) 3.375 gm in 50 mls @ 100 mls/hr IVPB Q6H [facility] Last Admin: 08/08/16 21:09 Dose: 100 mls/hr Insulin Human Regular (Novolin R) 0 unit SC ACHS [facility] PRN Reason: Protocol Last Admin: 08/08/16 22:28 Dose: Not Given Magnesium Hydroxide (Milk Of Magnesia) 30 ml PO BID PRN PRN Reason: Constipation Last Admin: 08/02/16 12:13 Dose: 30 ml Rosuvastatin Calcium (Crestor) 5 mg PO HS [facility] Last Admin: 08/08/16 21:01 Dose: 5 mg Sennosides (Senokot Tab) 8.6 mg NG DAILY [facility] Last Admin: 08/08/16 09:35 Dose: 8.6 mg - Labs Labs: 08/08/16 06:24 08/08/16 06:24 PT 12.4 SECONDS (9.7-12.2) H 08/08/16 06:24 INR 1.1 08/08/16 06:24 APTT 30 SECONDS (21-34) 08/08/16 06:24
[2016-08-09] MEDS: Albuterol-Ipratrop 3 mg / 0.5 (3 ml) UD INH SCH ×4 (01:33→20:11)
[2016-08-09] MEDS: Piperacill/Tazo 3.375gm in Dex 3.375 GM/50 ML BAG IVPB SCH ×4 (03:52→21:13)
[2016-08-09] MEDS: (Novolin R) Insulin Human Regular 100 units/ml vial SC SCH ×4 (08:06→21:13)
[2016-08-09] MEDS: Ferrous Sulfate 300 mg/5 mL Liq UD PO SCH ×3 (10:00→17:20)
--- NOTE | 2016-08-09 22:24 | CP.PCM.PN ---
Subjective - Date & Time of Evaluation Date of Evaluation: 08/09/16 Time of Evaluation: 15:45 Objective - Vital Signs/Intake and Output Vital Signs (last 24 hours): Temp Pulse Resp BP Pulse Ox 98.1 F 65 21 112/62 100 08/09/16 20:00 08/09/16 20:00 08/09/16 20:00 08/09/16 20:00 08/09/16 20:00 - Medications Medications: Current Medications Acetaminophen (Tylenol 325mg Tab) 650 mg PO Q6 PRN PRN Reason: Fever >100.4 F Last Admin: 08/07/16 20:35 Dose: 650 mg Albuterol/Ipratropium (Duoneb 3 Mg/0.5 Mg (3 Ml) Ud) 3 ml INH RQ6 [facility] Last Admin: 08/09/16 20:11 Dose: 3 ml Albuterol/Ipratropium (Duoneb 3 Mg/0.5 Mg (3 Ml) Ud) 3 ml INH RQ2 PRN PRN Reason: Shortness of Breath Alprazolam (Xanax) 0.5 mg PO Q12 [facility] Last Admin: 08/09/16 21:13 Dose: 0.5 mg Aspirin (Aspirin Chewable) 81 mg PO DAILY [facility] Last Admin: 08/09/16 10:00 Dose: 81 mg Carvedilol (Coreg) 6.25 mg PO BID [facility] Last Admin: 08/09/16 17:21 Dose: 6.25 mg Clopidogrel Bisulfate (Plavix) 75 mg PO DAILY [facility] Last Admin: 08/09/16 10:00 Dose: 75 mg Famotidine (Pepcid) 20 mg IVP Q12 [facility] Last Admin: 08/09/16 21:17 Dose: 20 mg Ferrous Sulfate (Feosol Liq) 300 mg PO TID [facility] Last Admin: 08/09/16 17:20 Dose: 300 mg Furosemide (Lasix) 40 mg IVP DAILY [facility] Last Admin: 08/09/16 10:00 Dose: 40 mg Heparin Sodium (Porcine) (Heparin) 5,000 units SC Q8 [facility] Last Admin: 08/09/16 21:13 Dose: 5,000 units Piperacillin Sod/Tazobactam Sod (Zosyn 3.375 Gm Iv Premix) 3.375 gm in 50 mls @ 100 mls/hr IVPB Q6H [facility] Last Admin: 08/09/16 21:13 Dose: 100 mls/hr Insulin Human Regular (Novolin R) 0 unit SC ACHS [facility] PRN Reason: Protocol Last Admin: 08/09/16 21:13 Dose: Not Given Magnesium Hydroxide (Milk Of Magnesia) 30 ml PO BID PRN PRN Reason: Constipation Last Admin: 08/02/16 12:13 Dose: 30 ml Rosuvastatin Calcium (Crestor) 5 mg PO HS [facility] Last Admin: 08/09/16 21:13 Dose: 5 mg Sennosides (Senokot Tab) 8.6 mg NG DAILY [facility] Last Admin: 08/09/16 10:00 Dose: 8.6 mg - Labs Labs: 08/08/16 06:24 08/08/16 06:24 PT 12.4 SECONDS (9.7-12.2) H 08/08/16 06:24 INR 1.1 08/08/16 06:24 APTT 30 SECONDS (21-34) 08/08/16 06:24 Assessment and Plan (1) CHF (congestive heart failure) Status: Acute
[2016-08-10] MEDS: Albuterol-Ipratrop 3 mg / 0.5 (3 ml) UD INH SCH ×5 (01:34→19:37)
[2016-08-10] MEDS: Piperacill/Tazo 3.375gm in Dex 3.375 GM/50 ML BAG IVPB SCH ×4 (04:08→21:32)
[2016-08-10 05:57] LABS: BASO # 0.2 K/uL (0.0-0.2); BASO % 1.8 % (0.0-2.0); EOS # 1.1 K/uL (0.0-0.7); HEMATOCRIT 31.2 % (34.0-47.0); LYMPH # 2.4 K/uL (1.0-4.3); LYMPH % 25.2 % (20.0-40.0); MEAN CELL VOLUME 71.8 fL (81.0-99.0); MEAN CORPUSCULAR HEMOGLOBIN 22.5 pg (27.0-31.0); MEAN CORPUSCULAR HGB CONC 31.3 g/dL (33.0-37.0); MONO % 10.1 % (0.0-10.0); NRBC % 0.1 % (0.0-2.0); RED CELL DISTRIBUTION WIDTH 19.6 % (11.5-14.5); WHITE BLOOD COUNT 9.7 K/uL (4.8-10.8)
[2016-08-10 06:12] LABS: CHLORIDE 94 mmol/L (98-107); POTASSIUM 3.3 mmol/L (3.6-5.2); SODIUM 136 mmol/L (132-148)
[2016-08-10 06:14] LABS: GFR AFRICAN-AMERICAN > 60
[2016-08-10 06:15] LABS: ALKALINE PHOSPHATASE 81 U/L (38-126); ALT/SGPT 16 U/L (9-52); AST/SGOT 18 U/L (14-36); BILIRUBIN,TOTAL 0.6 mg/dL (0.2-1.3); BLOOD UREA NITROGEN 21 mg/dL (7-17); CARBON DIOXIDE 27 mmol/L (22-30); GLUCOSE,RANDOM 82 mg/dL (65-105); PHOSPHOROUS 3.2 mg/dL (2.5-4.5); TOTAL PROTEIN 7.6 g/dL (6.3-8.3)
[2016-08-10 06:17] LABS: INR 1.2
[2016-08-10] MEDS ORDERED: Potassium Chloride 20 mEq/15 ml LIQ UD PO SCH (07:15)
[2016-08-10] MEDS: (Novolin R) Insulin Human Regular 100 units/ml vial SC SCH ×4 (08:18→21:22)
--- NOTE | 2016-08-10 09:59 | CP.PCM.PN ---
Subjective - Date & Time of Evaluation Date of Evaluation: 08/10/16 Time of Evaluation: 09:00 - Subjective Subjective: PGY2 Medicine Note - Dr. Beck's service: Patient seen and examined at bedside this AM. Patient reports burning pain from the KCl IVPB in her TLC. Patient is also upset that she is NPO. Patient's TLC is falling out. KCl was stopped. Patient needs PICC line but we are unable to get into contact with family. I called decision making daughter, Juju, 3 times with no answer. I left a message. Will try again later. Objective - Vital Signs/Intake and Output Vital Signs (last 24 hours): Temp Pulse Resp BP Pulse Ox 98.3 F 67 19 123/62 100 08/10/16 04:00 08/10/16 04:00 08/10/16 04:00 08/10/16 04:00 08/10/16 04:00 Intake and Output: 08/10/16 08/10/16 06:59 18:59 Intake Total 340 Balance 340 - Medications Medications: Current Medications Acetaminophen (Tylenol 325mg Tab) 650 mg PO Q6 PRN PRN Reason: Fever >100.4 F Last Admin: 08/07/16 20:35 Dose: 650 mg Albuterol/Ipratropium (Duoneb 3 Mg/0.5 Mg (3 Ml) Ud) 3 ml INH RQ6 [facility] Last Admin: 08/10/16 08:01 Dose: Not Given Albuterol/Ipratropium (Duoneb 3 Mg/0.5 Mg (3 Ml) Ud) 3 ml INH RQ2 PRN PRN Reason: Shortness of Breath Alprazolam (Xanax) 0.5 mg PO Q12 [facility] Last Admin: 08/10/16 08:17 Dose: 0.5 mg Aspirin (Aspirin Chewable) 81 mg PO DAILY [facility] Last Admin: 08/09/16 10:00 Dose: 81 mg Carvedilol (Coreg) 6.25 mg PO BID [facility] Last Admin: 08/09/16 17:21 Dose: 6.25 mg Clopidogrel Bisulfate (Plavix) 75 mg PO DAILY [facility] Last Admin: 08/09/16 10:00 Dose: 75 mg Famotidine (Pepcid) 20 mg IVP Q12 [facility] Last Admin: 08/09/16 21:17 Dose: 20 mg Ferrous Sulfate (Feosol Liq) 300 mg PO TID [facility] Last Admin: 08/09/16 17:20 Dose: 300 mg Furosemide (Lasix) 40 mg IVP DAILY [facility] Last Admin: 08/09/16 10:00 Dose: 40 mg Heparin Sodium (Porcine) (Heparin) 5,000 units SC Q8 [facility] Last Admin: 08/10/16 06:38 Dose: Not Given Piperacillin Sod/Tazobactam Sod (Zosyn 3.375 Gm Iv Premix) 3.375 gm in 50 mls @ 100 mls/hr IVPB Q6H [facility] Last Admin: 08/10/16 04:08 Dose: 100 mls/hr Insulin Human Regular (Novolin R) 0 unit SC ACHS [facility] PRN Reason: Protocol Last Admin: 08/10/16 08:18 Dose: Not Given Magnesium Hydroxide (Milk Of Magnesia) 30 ml PO BID PRN PRN Reason: Constipation Last Admin: 08/02/16 12:13 Dose: 30 ml Rosuvastatin Calcium (Crestor) 5 mg PO HS [facility] Last Admin: 08/09/16 21:13 Dose: 5 mg Sennosides (Senokot Tab) 8.6 mg NG DAILY [facility] Last Admin: 08/09/16 10:00 Dose: 8.6 mg - Labs Labs: 08/10/16 05:50 08/10/16 05:50 PT 13.1 SECONDS (9.7-12.2) H 08/10/16 05:50 INR 1.2 08/10/16 05:50 APTT 36 SECONDS (21-34) H D 08/10/16 05:50 - Constitutional Appears: Non-toxic, No Acute Distress - Head Exam Head Exam: NORMAL INSPECTION - Eye Exam Eye Exam: EOMI - ENT Exam ENT Exam: Mucous Membranes Moist - Respiratory Exam Respiratory Exam: Clear to Ausculation Bilateral, NORMAL BREATHING PATTERN. absent: Rhonchi, Wheezes - Cardiovascular Exam Cardiovascular Exam: REGULAR RHYTHM, +S1, +S2 - GI/Abdominal Exam GI & Abdominal Exam: Soft, Normal Bowel Sounds. absent: Tenderness - Extremities Exam Extremities Exam: Pedal Edema (trace) - Neurological Exam Neurological Exam: Alert, Awake - Psychiatric Exam Psychiatric exam: Agitated - Skin Skin Exam: Normal Color, Warm Assessment and Plan - Assessment and Plan (Free Text) Assessment: V Tach ROMIs negative ECHO 6/6/17 - suboptimal study. LVEF approximately 35%, septum appears akinetic and dyskinetic, moderate pulmonary hypertension Interventional cardio consult - Dr. Kelley- help appreciated EP cardio consult - Dr. Gustafson - help appreciated Patient NPO for cardiac cath today Respiratory Failure Hypoxemia on admission Patient was intubated and required ventilatory support until 08/05/16 Acute on Chronic systolic heart failure ECHO 08/02/16 - suboptimal study. LVEF approximately 35%, septum appears akinetic and dyskinetic, moderate pulmonary hypertension Echo- 06/25/16- Systolic function is mildly impaired, EF- 40-45%. Akinesis and thinning of basal and mid inferior wall and septal wall segments (both anterior and inferior)indicative of prior NH. LA moderately dilated. RA mildly dilated. AV moderately sclerotic. Mod tricuspid regurg (please see full report) Patient was seen by Dr Kelley on previous visit. He recommended conservative treatment due to patient's DNR/DNI status at the time. However, the patient wishes to be full code on this visit and prior visit. Patient refused cardiac cath yesterday but says she wants it today. Per Dr. Gustafson on last visit, patient is not a candidate for ICD at this time. Patient has indicated that she does not want an ICD. Risks of her low EF and not receiving an ICD was explained in detail last visit. MUGA scan- 06/20/16- EF 32% NEO neg x1 BNP 5210 Continue Coreg 6.25mg PO BID Continue Plavix 75mg PO Daily Continue Lasix 40mg IVP daily Continue Asa 81mg PO Daily Abnormal CXR Currently on Zosyn 3.375 gm IVPB Q6H Anemia Currently 8.4 f/u stool occult, iron panel, B12/folate Hypotension Continue to monitor. Prophylactic Measure Heparin 5000U SC Q12h [facility] Protonix 40mg PO Daily All medical management as per Dr. Beck.
--- NOTE | 2016-08-10 10:25 | RAD ---
HISTORY: Bedside assessment - check tlc placement COMPARISON: 08/05/2016. FINDINGS: LUNGS: Right IJ central venous line tip lies at the level of the inferior aspect right clavicular head. The should be repositioned. Findings discussed with ICU Carina at approximately 10:22 a.m. with written down and read back verification. ETT and NGT have been removed. . There may be small left-sided effusion and mild left basilar atelectasis. PLEURA: No apparent pneumothorax apparent. CARDIOVASCULAR: Heart size appears upper limits of normal. OSSEOUS STRUCTURES: Moderate levoscoliosis centered at the lower thoracic region. Degenerative changes both shoulder girdles. VISUALIZED UPPER ABDOMEN: Normal. OTHER FINDINGS: None. IMPRESSION: Right IJ central venous line tip lies at the level of the inferior aspect right clavicular head. The should be repositioned. Findings discussed with ICU Carina at approximately 10:22 a.m. with written down and read back verification. ETT and NGT have been removed. . There may be small left-sided effusion and mild left basilar atelectasis.
[2016-08-10] MEDS: Ferrous Sulfate 300 mg/5 mL Liq UD PO SCH ×3 (10:50→18:25)
--- NOTE | 2016-08-10 12:04 | CP.PCM.PN ---
Subjective - Date & Time of Evaluation Date of Evaluation: 08/10/16 Time of Evaluation: 12:01 - Subjective Subjective: Cardiology Progress Note for Dr. Gustafson Pt seen and examined at bedside. Pt doing well overnight with no acute events. No complaints at this time. Pt received her abx this morning. Pt is scheduled for cardiac cath later today. Denies CP or SOB. Objective - Vital Signs/Intake and Output Vital Signs (last 24 hours): Temp Pulse Resp BP Pulse Ox 98.3 F 67 19 157/74 H 100 08/10/16 04:00 08/10/16 04:00 08/10/16 04:00 08/10/16 10:50 08/10/16 04:00 Intake and Output: 08/10/16 08/10/16 06:59 18:59 Intake Total 340 Balance 340 - Medications Medications: Current Medications Acetaminophen (Tylenol 325mg Tab) 650 mg PO Q6 PRN PRN Reason: Fever >100.4 F Last Admin: 08/10/16 11:08 Dose: 650 mg Albuterol/Ipratropium (Duoneb 3 Mg/0.5 Mg (3 Ml) Ud) 3 ml INH RQ6 [facility] Last Admin: 08/10/16 08:01 Dose: Not Given Albuterol/Ipratropium (Duoneb 3 Mg/0.5 Mg (3 Ml) Ud) 3 ml INH RQ2 PRN PRN Reason: Shortness of Breath Alprazolam (Xanax) 0.5 mg PO Q12 [facility] Last Admin: 08/10/16 10:52 Dose: Not Given Aspirin (Aspirin Chewable) 81 mg PO DAILY [facility] Last Admin: 08/10/16 10:51 Dose: 81 mg Carvedilol (Coreg) 6.25 mg PO BID [facility] Last Admin: 08/10/16 10:51 Dose: 6.25 mg Clopidogrel Bisulfate (Plavix) 75 mg PO DAILY [facility] Last Admin: 08/10/16 10:51 Dose: 75 mg Famotidine (Pepcid) 20 mg IVP Q12 [facility] Last Admin: 08/10/16 10:50 Dose: 20 mg Ferrous Sulfate (Feosol Liq) 300 mg PO TID [facility] Last Admin: 08/10/16 10:50 Dose: 300 mg Furosemide (Lasix) 40 mg IVP DAILY [facility] Last Admin: 08/10/16 10:50 Dose: 40 mg Heparin Sodium (Porcine) (Heparin) 5,000 units SC Q8 [facility] Last Admin: 08/10/16 06:38 Dose: Not Given Piperacillin Sod/Tazobactam Sod (Zosyn 3.375 Gm Iv Premix) 3.375 gm in 50 mls @ 100 mls/hr IVPB Q6H [facility] Last Admin: 08/10/16 09:30 Dose: 100 mls/hr Insulin Human Regular (Novolin R) 0 unit SC ACHS [facility] PRN Reason: Protocol Last Admin: 08/10/16 08:18 Dose: Not Given Magnesium Hydroxide (Milk Of Magnesia) 30 ml PO BID PRN PRN Reason: Constipation Last Admin: 08/02/16 12:13 Dose: 30 ml Rosuvastatin Calcium (Crestor) 5 mg PO HS [facility] Last Admin: 08/09/16 21:13 Dose: 5 mg Sennosides (Senokot Tab) 8.6 mg NG DAILY [facility] Last Admin: 08/10/16 10:51 Dose: Not Given - Labs Labs: 08/10/16 05:50 08/10/16 05:50 PT 13.1 SECONDS (9.7-12.2) H 08/10/16 05:50 INR 1.2 08/10/16 05:50 APTT 36 SECONDS (21-34) H D 08/10/16 05:50 - Constitutional Appears: Non-toxic, No Acute Distress - Head Exam Head Exam: ATRAUMATIC, NORMAL INSPECTION, NORMOCEPHALIC - Respiratory Exam Respiratory Exam: Clear to Ausculation Bilateral, NORMAL BREATHING PATTERN - Cardiovascular Exam Cardiovascular Exam: RRR, +S1, +S2 - GI/Abdominal Exam GI & Abdominal Exam: Soft, Normal Bowel Sounds. absent: Tenderness - Extremities Exam Extremities Exam: Normal Inspection - Neurological Exam Neurological Exam: Alert, Awake, Oriented x3 - Skin Skin Exam: Intact, Normal Color, Warm Assessment and Plan (1) CHF (congestive heart failure) Assessment & Plan: Cardiac catheterization this afternoon Continue Coreg and Crestor at this time Will make further recommendations after catheterization Status: Acute
[2016-08-11] MEDS: Albuterol-Ipratrop 3 mg / 0.5 (3 ml) UD INH SCH ×4 (01:37→19:23)
[2016-08-11] MEDS: Piperacill/Tazo 3.375gm in Dex 3.375 GM/50 ML BAG IVPB SCH ×4 (02:52→21:30)
[2016-08-11 06:19] LABS: BASO # 0.2 K/uL (0.0-0.2); HEMATOCRIT 30.9 % (34.0-47.0); LYMPH # 2.3 K/uL (1.0-4.3); MEAN PLATELET VOLUME 9.9 fL (7.2-11.7); MONO # 1.1 K/uL (0.0-0.8); NRBC % 0.2 % (0.0-2.0)
[2016-08-11 06:35] LABS: CHLORIDE 97 mmol/L (98-107); POTASSIUM 3.3 mmol/L (3.6-5.2); SODIUM 136 mmol/L (132-148)
[2016-08-11 06:37] LABS: AST/SGOT 21 U/L (14-36); BILIRUBIN,TOTAL 0.7 mg/dL (0.2-1.3); CARBON DIOXIDE 27 mmol/L (22-30); GFR AFRICAN-AMERICAN > 60
[2016-08-11 06:38] LABS: ALB/GLOB RATIO 1.1 (1.0-2.1); ALKALINE PHOSPHATASE 77 U/L (38-126); ALT/SGPT 9 U/L (9-52); BLOOD UREA NITROGEN 17 mg/dL (7-17); CALCIUM 8.9 mg/dl (8.6-10.4); GLUCOSE,RANDOM 94 mg/dL (65-105); PHOSPHOROUS 3.2 mg/dL (2.5-4.5); TOTAL PROTEIN 7.1 g/dL (6.3-8.3)
[2016-08-11 06:39] LABS: MAGNESIUM 2.1 mg/dL (1.6-2.3)
[2016-08-11 06:48] LABS: BASO % 1.9 % (0.0-2.0); EOS # 0.6 K/uL (0.0-0.7); EOS % 7.4 % (0.0-4.0); LYMPH % 28.2 % (20.0-40.0); MEAN CELL VOLUME 72.1 fL (81.0-99.0); MEAN CORPUSCULAR HEMOGLOBIN 22.4 pg (27.0-31.0); MEAN CORPUSCULAR HGB CONC 31.1 g/dL (33.0-37.0); MONO % 13.3 % (0.0-10.0); RED CELL DISTRIBUTION WIDTH 19.7 % (11.5-14.5); WHITE BLOOD COUNT 8.3 K/uL (4.8-10.8)
[2016-08-11] MEDS: (Novolin R) Insulin Human Regular 100 units/ml vial SC SCH ×4 (07:56→21:48)
[2016-08-11] MEDS: Ferrous Sulfate 300 mg/5 mL Liq UD PO SCH ×3 (09:25→17:02)
--- NOTE | 2016-08-11 10:00 | CP.PCM.PN ---
Subjective - Date & Time of Evaluation Date of Evaluation: 08/11/16 Time of Evaluation: 09:54 - Subjective Subjective: Cardiology Progress Note for Dr. Gustafson Pt seen and examined at bedside. Pt doing well overnight with no acute events. Pt refused cardiac catheterization yesterday. Pt with no current complaints. Denies CP, SOB, N/V/D. Objective - Vital Signs/Intake and Output Vital Signs (last 24 hours): Temp Pulse Resp BP Pulse Ox 97.6 F 68 20 116/67 100 08/11/16 03:53 08/11/16 03:53 08/11/16 03:53 08/11/16 09:25 08/11/16 03:53 Intake and Output: 08/11/16 08/11/16 06:59 18:59 Intake Total 200 Output Total 500 Balance -300 - Medications Medications: Current Medications Acetaminophen (Tylenol 325mg Tab) 650 mg PO Q6 PRN PRN Reason: Fever >100.4 F Last Admin: 08/11/16 09:32 Dose: 650 mg Albuterol/Ipratropium (Duoneb 3 Mg/0.5 Mg (3 Ml) Ud) 3 ml INH RQ6 [facility] Last Admin: 08/11/16 01:37 Dose: Not Given Albuterol/Ipratropium (Duoneb 3 Mg/0.5 Mg (3 Ml) Ud) 3 ml INH RQ2 PRN PRN Reason: Shortness of Breath Alprazolam (Xanax) 0.5 mg PO Q12 [facility] Last Admin: 08/11/16 09:25 Dose: 0.5 mg Aspirin (Aspirin Chewable) 81 mg PO DAILY [facility] Last Admin: 08/11/16 09:25 Dose: 81 mg Carvedilol (Coreg) 6.25 mg PO BID [facility] Last Admin: 08/11/16 09:25 Dose: 6.25 mg Clopidogrel Bisulfate (Plavix) 75 mg PO DAILY [facility] Last Admin: 08/11/16 09:25 Dose: 75 mg Famotidine (Pepcid) 20 mg IVP Q12 [facility] Last Admin: 08/11/16 09:26 Dose: 20 mg Ferrous Sulfate (Feosol Liq) 300 mg PO TID [facility] Last Admin: 08/11/16 09:25 Dose: 300 mg Furosemide (Lasix) 40 mg IVP DAILY [facility] Last Admin: 08/11/16 09:25 Dose: 40 mg Heparin Sodium (Porcine) (Heparin) 5,000 units SC Q8 [facility] Last Admin: 08/11/16 06:10 Dose: 5,000 units Piperacillin Sod/Tazobactam Sod (Zosyn 3.375 Gm Iv Premix) 3.375 gm in 50 mls @ 100 mls/hr IVPB Q6H [facility] Last Admin: 08/11/16 08:37 Dose: 100 mls/hr Insulin Human Regular (Novolin R) 0 unit SC ACHS [facility] PRN Reason: Protocol Last Admin: 08/11/16 07:56 Dose: Not Given Magnesium Hydroxide (Milk Of Magnesia) 30 ml PO BID PRN PRN Reason: Constipation Last Admin: 08/02/16 12:13 Dose: 30 ml Rosuvastatin Calcium (Crestor) 5 mg PO HS [facility] Last Admin: 08/10/16 21:30 Dose: 5 mg Sennosides (Senokot Tab) 8.6 mg NG DAILY [facility] Last Admin: 08/11/16 09:25 Dose: 8.6 mg - Labs Labs: 08/11/16 06:12 08/11/16 06:09 PT 13.1 SECONDS (9.7-12.2) H 08/10/16 05:50 INR 1.2 08/10/16 05:50 APTT 36 SECONDS (21-34) H D 08/10/16 05:50 - Constitutional Appears: Non-toxic, No Acute Distress - Head Exam Head Exam: ATRAUMATIC, NORMAL INSPECTION, NORMOCEPHALIC - Respiratory Exam Respiratory Exam: Clear to Ausculation Bilateral, NORMAL BREATHING PATTERN - Cardiovascular Exam Cardiovascular Exam: RRR, +S1, +S2 - GI/Abdominal Exam GI & Abdominal Exam: Soft, Normal Bowel Sounds. absent: Tenderness - Extremities Exam Extremities Exam: Normal Inspection. absent: Pedal Edema - Neurological Exam Neurological Exam: Alert, Awake - Skin Skin Exam: Normal Color, Warm Assessment and Plan (1) CHF (congestive heart failure) Assessment & Plan: Continue Coreg and Crestor at this time Continue current medical management Consider cardiac catheterization Status: Acute
[2016-08-11] MEDS ORDERED: Potassium Chloride 20 mEq/15 ml LIQ UD PO STA (10:15)
--- NOTE | 2016-08-11 10:51 | CP.PCM.PN ---
Subjective - Date & Time of Evaluation Date of Evaluation: 08/11/16 Time of Evaluation: 09:30 - Subjective Subjective: PGY2 Medicine Note - Dr. Beck's service: Patient seen and examined at bedside this AM. Patient reports cough productive of yellow phlegm x 4 days. Patient reports sore throat. Patient scheduled for cardiac cath with Dr. Cunningham today. Objective - Vital Signs/Intake and Output Vital Signs (last 24 hours): Temp Pulse Resp BP Pulse Ox 97.6 F 68 20 116/67 100 08/11/16 03:53 08/11/16 03:53 08/11/16 03:53 08/11/16 09:25 08/11/16 03:53 Intake and Output: 08/11/16 08/11/16 06:59 18:59 Intake Total 200 Output Total 500 Balance -300 - Medications Medications: Current Medications Acetaminophen (Tylenol 325mg Tab) 650 mg PO Q6 PRN PRN Reason: Fever >100.4 F Last Admin: 08/11/16 09:32 Dose: 650 mg Albuterol/Ipratropium (Duoneb 3 Mg/0.5 Mg (3 Ml) Ud) 3 ml INH RQ6 [facility] Last Admin: 08/11/16 01:37 Dose: Not Given Albuterol/Ipratropium (Duoneb 3 Mg/0.5 Mg (3 Ml) Ud) 3 ml INH RQ2 PRN PRN Reason: Shortness of Breath Alprazolam (Xanax) 0.5 mg PO Q12 [facility] [place] Last Admin: 08/11/16 09:25 Dose: 0.5 mg Aspirin (Aspirin Chewable) 81 mg PO DAILY [facility] [place] Last Admin: 08/11/16 09:25 Dose: 81 mg Benzocaine/Menthol (Cepacol Sore Throat) 1 hill MT QID [facility] [place] Carvedilol (Coreg) 6.25 mg PO BID [facility] [place] Last Admin: 08/11/16 09:25 Dose: 6.25 mg Clopidogrel Bisulfate (Plavix) 75 mg PO DAILY [facility] [place] Last Admin: 08/11/16 09:25 Dose: 75 mg Famotidine (Pepcid) 20 mg IVP Q12 [facility] [place] Last Admin: 08/11/16 09:26 Dose: 20 mg Ferrous Sulfate (Feosol Liq) 300 mg PO TID [facility] [place] Last Admin: 08/11/16 09:25 Dose: 300 mg Furosemide (Lasix) 40 mg IVP DAILY [facility] [place] Last Admin: 08/11/16 09:25 Dose: 40 mg Guaifenesin (Robitussin) 100 mg PO Q4H PRN PRN Reason: Cough Heparin Sodium (Porcine) (Heparin) 5,000 units SC Q8 [facility] [place] Last Admin: 08/11/16 06:10 Dose: 5,000 units Piperacillin Sod/Tazobactam Sod (Zosyn 3.375 Gm Iv Premix) 3.375 gm in 50 mls @ 100 mls/hr IVPB Q6H [facility] [place] Last Admin: 08/11/16 08:37 Dose: 100 mls/hr Potassium Chloride (Potassium Chloride 10 Meq/100 Ml) 10 meq in 100 mls @ 100 mls/hr IVPB ONCE ONE Stop: 08/11/16 11:14 Last Admin: 08/11/16 10:23 Dose: 100 mls/hr Insulin Human Regular (Novolin R) 0 unit SC ACHS [facility] [place] PRN Reason: Protocol Last Admin: 08/11/16 07:56 Dose: Not Given Magnesium Hydroxide (Milk Of Magnesia) 30 ml PO BID PRN PRN Reason: Constipation Last Admin: 08/02/16 12:13 Dose: 30 ml Rosuvastatin Calcium (Crestor) 5 mg PO HS [facility] [place] Last Admin: 08/10/16 21:30 Dose: 5 mg Sennosides (Senokot Tab) 8.6 mg NG DAILY [facility] [place] Last Admin: 08/11/16 09:25 Dose: 8.6 mg - Labs Labs: 08/11/16 06:12 08/11/16 06:09 PT 13.1 SECONDS (9.7-12.2) H 08/10/16 05:50 INR 1.2 08/10/16 05:50 APTT 36 SECONDS (21-34) H D 08/10/16 05:50 - Constitutional Appears: Non-toxic, No Acute Distress - Head Exam Head Exam: NORMAL INSPECTION - Eye Exam Eye Exam: EOMI - ENT Exam Additional comments: erythematous oral pharynx - Respiratory Exam Respiratory Exam: Rhonchi, NORMAL BREATHING PATTERN. absent: Accessory Muscle Use, Rales, Wheezes, Respiratory Distress - Cardiovascular Exam Cardiovascular Exam: REGULAR RHYTHM, +S1, +S2. absent: Gallop, Rubs, Murmur - GI/Abdominal Exam GI & Abdominal Exam: Soft, Normal Bowel Sounds. absent: Tenderness - Neurological Exam Neurological Exam: Alert, Awake, Oriented x3 - Psychiatric Exam Psychiatric exam: Normal Affect, Normal Mood - Skin Skin Exam: Normal Color, Warm Assessment and Plan - Assessment and Plan (Free Text) Assessment: V Tach ROMIs negative ECHO 08/02/16 - suboptimal study. LVEF approximately 35%, septum appears akinetic and dyskinetic, moderate pulmonary hypertension Interventional cardio consult - Dr. Cunningham - help appreciated EP cardio consult - Dr. Gutsafson - help appreciated Patient NPO for cardiac cath today Sore throat Cepacol Respiratory Failure Hypoxemia on admission Patient was intubated and required ventilatory support until 08/05/16 Patient on Zosyn 3.375 gm IVPB Q6H Robitussin added for cough Acute on Chronic systolic heart failure ECHO 08/02/16 - suboptimal study. LVEF approximately 35%, septum appears akinetic and dyskinetic, moderate pulmonary hypertension Echo- 06/25/16- Systolic function is mildly impaired, EF- 40-45%. Akinesis and thinning of basal and mid inferior wall and septal wall segments (both anterior and inferior)indicative of prior [place]. LA moderately dilated. RA mildly dilated. AV moderately sclerotic. Mod tricuspid regurg (please see full report) Patient was seen by Dr Kelley on previous visit. He recommended conservative treatment due to patient's DNR/DNI status at the time. However, the patient wishes to be full code on this visit and prior visit. Patient refused cardiac cath yesterday but says she wants it today. Per Dr. Gustafson on last visit, patient is not a candidate for ICD at this time. Patient has indicated that she does not want an ICD. Risks of her low EF and not receiving an ICD was explained in detail last visit. MUGA scan- 06/20/16- EF 32% NEO neg x1 BNP 5210 Continue Coreg 6.25mg PO BID Continue Plavix 75mg PO Daily Continue Lasix 40mg IVP daily Continue Asa 81mg PO Daily Anemia Currently 9.6 f/u stool occult, iron panel, B12/folate Hypotension Continue to monitor. Prophylactic Measure Heparin 5000U SC Q12h [facility]CD[facility] Protonix 40mg PO Daily All medical management as per Dr. Beck.
[2016-08-11] MEDS: Benzocaine/Menthol (Cepacol) Lozenge MT SCH ×3 (15:05→21:31)
[2016-08-11] MEDS ORDERED: Midazolam 2 MG/2 ML VIAL ONE (17:30)
[2016-08-11] MEDS ORDERED: Iodixanol 320 MG/ML 200 ML BOTTLE IV ONE (17:30)
--- NOTE | 2016-08-11 20:45 | CARDCATH ---
PROCEDURE DATE: 08/11/2016 PROCEDURE PERFORMED: Left heart catheterization, coronary angiography, left ventriculography. INDICATIONS: Evaluation of coronary artery disease and ventricular tachycardia. HISTORY OF PRESENT ILLNESS: This patient is an 81-year-old female with a past medical history of hyp ertension, hypercholesterolemia, coronary artery disease, status post previous myocardial infarction, and subsequent stent of the right coronary artery, who presents after at-hospital cardiac arrest. T he patient was intubated and in ventricular tachycardia, requiring defibrillation. The patient was m edically stabilized and then extubated. She is referred for coronary angiography to evaluate coronar y arteries. The patient denies chest pain at this time. DESCRIPTION OF PROCEDURE: After obtaining informed consent, the patient was prepped and draped in [facility] sterile fashion. Right groin was anesthetized with 2% lidocaine solution. A 6-Yemeni sheath was inserted into right common femoral artery via modified Seldinger technique. Coronary angiography an d left ventriculography were then performed. All catheters were removed and Angio-Seal device deploy ed successfully to achieve hemostasis. FINDINGS: LEFT MAIN: Arises from left sinus of Valsalva. No significant atherosclerosis. LEFT ANTERIOR DESCENDING ARTERY: There is eccentric calcification of the mid vessel. There is an 80 % stenosis of the mid vessel with a hazy opacity in the mid. LEFT CIRCUMFLEX ARTERY: Arises from left sinus of Valsalva. There is a 50% stenosis of the proximal vessel. RIGHT CORONARY ARTERY: Arises from the right sinus of Valsalva. There is a right dominant circulati on. The mid vessel has been previously stented. The stent is widely patent. Eccentric calcificatio n noted of the distal vessel. LEFT VENTRICLE: Appears mildly dilated. Left ventricular ejection fraction is 35%. There is no julius ral regurgitation, no aortic stenosis. CONCLUSIONS: Severe left ventricular systolic dysfunction coronary arteries, widely patent gurpreet nt in the right coronary artery. PLAN: Aggressive medical therapy. Will likely have discussion with family and EP regarding placemen t of defibrillator as secondary prevention. There is a stenosis of the mid left anterior descending artery, which can be addressed percutaneously. Malena Cunningham MD cc: [id number] TT: 08/11/2016 20:44:37 dn
[2016-08-12] MEDS: Albuterol-Ipratrop 3 mg / 0.5 (3 ml) UD INH SCH ×4 (01:46→19:54)
[2016-08-12] MEDS: Piperacill/Tazo 3.375gm in Dex 3.375 GM/50 ML BAG IVPB SCH ×4 (02:18→22:38)
[2016-08-12 06:46] LABS: BASO # 0.2 K/uL (0.0-0.2); BASO % 1.8 % (0.0-2.0); EOS # 0.5 K/uL (0.0-0.7); EOS % 5.8 % (0.0-4.0); LYMPH # 2.3 K/uL (1.0-4.3); LYMPH % 24.3 % (20.0-40.0); MEAN CELL VOLUME 72.7 fL (81.0-99.0); MEAN CORPUSCULAR HEMOGLOBIN 22.6 pg (27.0-31.0); MEAN CORPUSCULAR HGB CONC 31.1 g/dL (33.0-37.0); MONO # 1.1 K/uL (0.0-0.8); MONO % 11.9 % (0.0-10.0); NRBC % 0.1 % (0.0-2.0); RED CELL DISTRIBUTION WIDTH 19.8 % (11.5-14.5); WHITE BLOOD COUNT 9.4 K/uL (4.8-10.8)
[2016-08-12 06:49] LABS: CHLORIDE 100 mmol/L (98-107); POTASSIUM 3.7 mmol/L (3.6-5.2); SODIUM 136 mmol/L (132-148)
[2016-08-12 06:51] LABS: ALKALINE PHOSPHATASE 72 U/L (38-126); AST/SGOT 15 U/L (14-36); BILIRUBIN,TOTAL 0.7 mg/dL (0.2-1.3); CARBON DIOXIDE 22 mmol/L (22-30); GFR AFRICAN-AMERICAN > 60
[2016-08-12 06:52] LABS: ALB/GLOB RATIO 1.2 (1.0-2.1); ALT/SGPT 13 U/L (9-52); BLOOD UREA NITROGEN 17 mg/dL (7-17); CALCIUM 8.8 mg/dl (8.6-10.4); GLUCOSE,RANDOM 90 mg/dL (65-105); PHOSPHOROUS 3.4 mg/dL (2.5-4.5); TOTAL PROTEIN 6.9 g/dL (6.3-8.3)
[2016-08-12] MEDS: (Novolin R) Insulin Human Regular 100 units/ml vial SC SCH ×4 (08:09→21:36)
--- NOTE | 2016-08-12 08:38 | CP.PCM.PN ---
Subjective - Date & Time of Evaluation Date of Evaluation: 08/12/16 Time of Evaluation: 08:30 - Subjective Subjective: PGY2 Medicine Note - Dr. Beck's service: Patient seen and examined at bedside this AM. Patient reports continued cough and sore throat. Patient had cardiac cath with Dr. Burroughs's yesterday. Objective - Vital Signs/Intake and Output Vital Signs (last 24 hours): Temp Pulse Resp BP Pulse Ox 98.4 F 71 20 129/73 100 08/12/16 04:00 08/12/16 04:00 08/12/16 04:00 08/12/16 04:00 08/12/16 04:00 Intake and Output: 08/12/16 08/12/16 06:59 18:59 Intake Total 850 Output Total 900 Balance -50 - Medications Medications: Current Medications Acetaminophen (Tylenol 325mg Tab) 650 mg PO Q6 PRN PRN Reason: Fever >100.4 F Last Admin: 08/11/16 09:32 Dose: 650 mg Albuterol/Ipratropium (Duoneb 3 Mg/0.5 Mg (3 Ml) Ud) 3 ml INH RQ6 [facility] Last Admin: 08/12/16 07:49 Dose: 3 ml Albuterol/Ipratropium (Duoneb 3 Mg/0.5 Mg (3 Ml) Ud) 3 ml INH RQ2 PRN PRN Reason: Shortness of Breath Alprazolam (Xanax) 0.5 mg PO Q12 [facility] Last Admin: 08/11/16 21:50 Dose: 0.5 mg Aspirin (Aspirin Chewable) 81 mg PO DAILY [facility] Last Admin: 08/11/16 09:25 Dose: 81 mg Benzocaine/Menthol (Cepacol Sore Throat) 1 hill MT QID [facility] Last Admin: 08/11/16 21:31 Dose: 1 hill Carvedilol (Coreg) 6.25 mg PO BID [facility] Last Admin: 08/11/16 17:01 Dose: Not Given Clopidogrel Bisulfate (Plavix) 75 mg PO DAILY [facility] Last Admin: 08/11/16 09:25 Dose: 75 mg Famotidine (Pepcid) 20 mg PO DAILY [facility] Ferrous Sulfate (Feosol Liq) 300 mg PO TID [facility] Last Admin: 08/11/16 17:02 Dose: Not Given Furosemide (Lasix) 40 mg IVP DAILY [facility] Last Admin: 08/11/16 09:25 Dose: 40 mg Guaifenesin (Robitussin) 100 mg PO Q4H PRN PRN Reason: Cough Heparin Sodium (Porcine) (Heparin) 5,000 units SC Q8 [facility] Last Admin: 08/12/16 07:21 Dose: 5,000 units Piperacillin Sod/Tazobactam Sod (Zosyn 3.375 Gm Iv Premix) 3.375 gm in 50 mls @ 100 mls/hr IVPB Q6H [facility] Last Admin: 08/12/16 02:18 Dose: 100 mls/hr Insulin Human Regular (Novolin R) 0 unit SC ACHS [facility] PRN Reason: Protocol Last Admin: 08/12/16 08:09 Dose: Not Given Magnesium Hydroxide (Milk Of Magnesia) 30 ml PO BID PRN PRN Reason: Constipation Last Admin: 08/02/16 12:13 Dose: 30 ml Rosuvastatin Calcium (Crestor) 5 mg PO HS [facility] Last Admin: 08/11/16 21:30 Dose: 5 mg Sennosides (Senokot Tab) 8.6 mg NG DAILY [facility] Last Admin: 08/11/16 09:25 Dose: 8.6 mg - Labs Labs: 08/12/16 06:36 08/12/16 06:33 PT 13.1 SECONDS (9.7-12.2) H 08/10/16 05:50 INR 1.2 08/10/16 05:50 APTT 36 SECONDS (21-34) H D 08/10/16 05:50 - Constitutional Appears: Non-toxic, No Acute Distress - Head Exam Head Exam: NORMAL INSPECTION - Eye Exam Eye Exam: EOMI - ENT Exam Additional comments: erythematous oropharynx - Respiratory Exam Respiratory Exam: Clear to Ausculation Bilateral, NORMAL BREATHING PATTERN. absent: Rales, Rhonchi, Wheezes - Cardiovascular Exam Cardiovascular Exam: REGULAR RHYTHM, +S1, +S2. absent: Gallop, Rubs, Murmur - GI/Abdominal Exam GI & Abdominal Exam: Soft, Normal Bowel Sounds. absent: Tenderness - Extremities Exam Extremities Exam: absent: Pedal Edema - Neurological Exam Neurological Exam: Alert, Awake, Oriented x3 - Psychiatric Exam Psychiatric exam: Normal Affect, Normal Mood - Skin Skin Exam: Normal Color, Warm Assessment and Plan - Assessment and Plan (Free Text) Assessment: V Tach and CAD ROMIs negative ECHO 08/02/16 - suboptimal study. LVEF approximately 35%, septum appears akinetic and dyskinetic, moderate pulmonary hypertension Interventional cardio consult - Dr. Cunningham - help appreciated EP cardio consult - Dr. Gustafson - help appreciated Cardiac cath 08/11/16 - left main patent, LAD has eccentric calcification of the mid vessel. 80% stenosis of the mid vessel with a hazy opacity in the mid. Left circumflex has 50% stenosis in proximal vessel. RCA has a widely patent stent and eccentric calcification in the distal vessel. LVEF is 35%. Dr. Cunningham plan in his note involve defibrillator placement discussion with family and Dr. Gustafson and possible PCI for Mid LAD. Sore throat Cepacol Respiratory Failure Hypoxemia on admission Patient was intubated and required ventilatory support until 08/05/16 Patient on Zosyn 3.375 gm IVPB Q6H Robitussin added for cough Acute on Chronic systolic heart failure ECHO 08/02/16 - suboptimal study. LVEF approximately 35%, septum appears akinetic and dyskinetic, moderate pulmonary hypertension Echo- 06/25/16- Systolic function is mildly impaired, EF- 40-45%. Akinesis and thinning of basal and mid inferior wall and septal wall segments (both anterior and inferior)indicative of prior [place]. LA moderately dilated. RA mildly dilated. AV moderately sclerotic. Mod tricuspid regurg (please see full report) Patient was seen by Dr Kelley on previous visit. He recommended conservative treatment due to patient's DNR/DNI status at the time. However, the patient wishes to be full code on this visit and prior visit. Patient refused cardiac cath yesterday but says she wants it today. Per Dr. Gustafson on last visit, patient is not a candidate for ICD at this time. Patient has indicated that she does not want an ICD. Risks of her low EF and not receiving an ICD was explained in detail last visit. MUGA scan- 06/20/16- EF 32% NEO neg x1 BNP 5210 Continue Coreg 6.25mg PO BID Continue Plavix 75mg PO Daily Continue Lasix 40mg IVP daily Continue Asa 81mg PO Daily Anemia Currently 9.6 f/u stool occult, iron panel, B12/folate Hypotension Continue to monitor. Prophylactic Measure Heparin 5000U SC Q12h [facility] Protonix 40mg PO Daily All medical management as per Dr. Beck.
[2016-08-12] MEDS: Benzocaine/Menthol (Cepacol) Lozenge MT SCH ×4 (09:44→21:41)
[2016-08-12] MEDS: Ferrous Sulfate 300 mg/5 mL Liq UD PO SCH ×3 (10:14→17:23)
[2016-08-12] MEDS ORDERED: Mag&Al/Simet/Diphen/Lido 237 ML KIT PO SCH (11:30)
[2016-08-12] MEDS: Mag&Al/Simet/Diphen/Lido 237 ML KIT PO SCH ×2 (13:07→17:31)
--- NOTE | 2016-08-12 18:01 | CP.PCM.PN ---
Subjective - Date & Time of Evaluation Date of Evaluation: 08/12/16 Time of Evaluation: 08:26 Objective - Vital Signs/Intake and Output Vital Signs (last 24 hours): Temp Pulse Resp BP Pulse Ox 98.8 F 78 25 H 115/69 100 08/12/16 16:00 08/12/16 16:00 08/12/16 16:00 08/12/16 16:00 08/12/16 16:00 Intake and Output: 08/12/16 08/12/16 06:59 18:59 Intake Total 850 Output Total 900 Balance -50 - Medications Medications: Current Medications Acetaminophen (Tylenol 325mg Tab) 650 mg PO Q6 PRN PRN Reason: Fever >100.4 F Last Admin: 08/12/16 17:25 Dose: 650 mg Albuterol/Ipratropium (Duoneb 3 Mg/0.5 Mg (3 Ml) Ud) 3 ml INH RQ6 [facility] Last Admin: 08/12/16 13:27 Dose: 3 ml Albuterol/Ipratropium (Duoneb 3 Mg/0.5 Mg (3 Ml) Ud) 3 ml INH RQ2 PRN PRN Reason: Shortness of Breath Alprazolam (Xanax) 0.5 mg PO Q12 [facility] Last Admin: 08/12/16 09:47 Dose: 0.5 mg Aspirin (Aspirin Chewable) 81 mg PO DAILY [facility] Last Admin: 08/12/16 10:01 Dose: 81 mg Benzocaine/Menthol (Cepacol Sore Throat) 1 hill MT QID [facility] Last Admin: 08/12/16 17:24 Dose: 1 hill Carvedilol (Coreg) 6.25 mg PO BID [facility] Last Admin: 08/12/16 17:25 Dose: 6.25 mg Clopidogrel Bisulfate (Plavix) 75 mg PO DAILY [facility] Last Admin: 08/12/16 10:00 Dose: 75 mg Famotidine (Pepcid) 20 mg PO DAILY [facility] Last Admin: 08/12/16 10:02 Dose: 20 mg Ferrous Sulfate (Feosol Liq) 300 mg PO TID [facility] Last Admin: 08/12/16 17:23 Dose: 300 mg Furosemide (Lasix) 40 mg IVP DAILY [facility] Last Admin: 08/12/16 10:05 Dose: 40 mg Guaifenesin (Robitussin) 100 mg PO Q4H PRN PRN Reason: Cough Heparin Sodium (Porcine) (Heparin) 5,000 units SC Q8 [facility] Last Admin: 08/12/16 13:13 Dose: 5,000 units Piperacillin Sod/Tazobactam Sod (Zosyn 3.375 Gm Iv Premix) 3.375 gm in 50 mls @ 100 mls/hr IVPB Q6H [facility] Last Admin: 08/12/16 16:58 Dose: 100 mls/hr Insulin Human Regular (Novolin R) 0 unit SC ACHS [facility] PRN Reason: Protocol Last Admin: 08/12/16 16:53 Dose: Not Given Magnesium Hydroxide (Milk Of Magnesia) 30 ml PO BID PRN PRN Reason: Constipation Last Admin: 08/02/16 12:13 Dose: 30 ml Rosuvastatin Calcium (Crestor) 5 mg PO HS [facility] Last Admin: 08/11/16 21:30 Dose: 5 mg Saliva Substitute (First Magic Mouthwash) 5 ml PO BID [facility] Last Admin: 08/12/16 17:31 Dose: 5 ml Sennosides (Senokot Tab) 8.6 mg NG DAILY [facility] Last Admin: 08/12/16 10:43 Dose: 8.6 mg - Labs Labs: 08/12/16 06:36 08/12/16 06:33 PT 13.1 SECONDS (9.7-12.2) H 08/10/16 05:50 INR 1.2 08/10/16 05:50 APTT 36 SECONDS (21-34) H D 08/10/16 05:50 Assessment and Plan (1) CHF (congestive heart failure) Status: Acute
--- NOTE | 2016-08-12 19:26 | OP ---
PROCEDURE DATE: 08/12/2016 PREOPERATIVE DIAGNOSIS: Dysphagia. POSTOPERATIVE DIAGNOSIS: Dysphagia. PROCEDURES: Flexible laryngoscopy. SIGNIFICANT FINDINGS: Supraglottic erythema. PROCEDURE: The patient was placed in a seated position. The nose was decongested using Afrin. Flex ible laryngoscope was inserted in the right nasal cavity, passed through the nasopharynx, oropharynx, and hypopharynx. The base of tongue, vallecula, epiglottis, AE folds, false cords, true cords, aryt enoids and piriform sinuses were brought into view. Supraglottic erythema was noted with some erythe ma of the pharyngeal orta and the scope was removed. The patient tolerated the procedure well. RECOMMENDATION: Is for the patient to continue IV antibiotics and p.o. antibiotics at home for a tot al of 7-10 days. The patient to follow up in the office after discharge. Thompson Maria MD cc: [phone] TT: 08/12/2016 19:25:56 suman
[2016-08-12] MEDS: guaiFENesin 100 mg/5 ml Syrup UD PO PRN (21:38)
[2016-08-13] MEDS: guaiFENesin 100 mg/5 ml Syrup UD PO PRN (01:23)
--- NOTE | 2016-08-13 03:30 | CP.PCM.PN ---
Subjective - Date & Time of Evaluation Date of Evaluation: 08/12/16 Time of Evaluation: 07:20 - Subjective Subjective: patient is s/p cardaic cath. reviewed with patient. Objective - Vital Signs/Intake and Output Vital Signs (last 24 hours): Temp Pulse Resp BP Pulse Ox 97.7 F 77 18 121/59 L 100 08/12/16 20:00 08/13/16 00:30 08/12/16 20:00 08/12/16 22:36 08/12/16 20:00 - Medications Medications: Current Medications Acetaminophen (Tylenol 325mg Tab) 650 mg PO Q6 PRN PRN Reason: Fever >100.4 F Last Admin: 08/13/16 01:23 Dose: 650 mg Albuterol/Ipratropium (Duoneb 3 Mg/0.5 Mg (3 Ml) Ud) 3 ml INH RQ6 [facility] Last Admin: 08/12/16 19:54 Dose: 3 ml Albuterol/Ipratropium (Duoneb 3 Mg/0.5 Mg (3 Ml) Ud) 3 ml INH RQ2 PRN PRN Reason: Shortness of Breath Alprazolam (Xanax) 0.5 mg PO Q12 [facility] Last Admin: 08/12/16 21:38 Dose: 0.5 mg Aspirin (Aspirin Chewable) 81 mg PO DAILY [facility] Last Admin: 08/12/16 10:01 Dose: 81 mg Benzocaine/Menthol (Cepacol Sore Throat) 1 hill MT QID [facility] Last Admin: 08/12/16 21:41 Dose: 1 hill Carvedilol (Coreg) 6.25 mg PO BID [facility] Last Admin: 08/12/16 17:25 Dose: 6.25 mg Clopidogrel Bisulfate (Plavix) 75 mg PO DAILY [facility] Last Admin: 08/12/16 10:00 Dose: 75 mg Famotidine (Pepcid) 20 mg PO DAILY [facility] Last Admin: 08/12/16 10:02 Dose: 20 mg Ferrous Sulfate (Feosol Liq) 300 mg PO TID [facility] Last Admin: 08/12/16 17:23 Dose: 300 mg Furosemide (Lasix) 40 mg IVP DAILY [facility] Last Admin: 08/12/16 10:05 Dose: 40 mg Guaifenesin (Robitussin) 100 mg PO Q4H PRN PRN Reason: Cough Last Admin: 08/13/16 01:23 Dose: 100 mg Heparin Sodium (Porcine) (Heparin) 5,000 units SC Q8 [facility] Last Admin: 08/12/16 21:40 Dose: 5,000 units Piperacillin Sod/Tazobactam Sod (Zosyn 3.375 Gm Iv Premix) 3.375 gm in 50 mls @ 100 mls/hr IVPB Q6H [facility] Last Admin: 08/12/16 22:38 Dose: 100 mls/hr Insulin Human Regular (Novolin R) 0 unit SC ACHS [facility] PRN Reason: Protocol Last Admin: 08/12/16 21:36 Dose: Not Given Magnesium Hydroxide (Milk Of Magnesia) 30 ml PO BID PRN PRN Reason: Constipation Last Admin: 08/02/16 12:13 Dose: 30 ml Rosuvastatin Calcium (Crestor) 5 mg PO HS [facility] Last Admin: 08/12/16 21:38 Dose: 5 mg Saliva Substitute (First Magic Mouthwash) 5 ml PO BID [facility] Last Admin: 08/12/16 17:31 Dose: 5 ml Sennosides (Senokot Tab) 8.6 mg NG DAILY [facility] Last Admin: 08/12/16 10:43 Dose: 8.6 mg - Labs Labs: 08/12/16 06:36 08/12/16 06:33 PT 13.1 SECONDS (9.7-12.2) H 08/10/16 05:50 INR 1.2 08/10/16 05:50 APTT 36 SECONDS (21-34) H D 08/10/16 05:50 - Constitutional Appears: Non-toxic - Head Exam Head Exam: NORMAL INSPECTION - Eye Exam Eye Exam: Normal appearance - ENT Exam ENT Exam: Mucous Membranes Moist - Neck Exam Neck Exam: Full ROM - Respiratory Exam Respiratory Exam: Decreased Breath Sounds - Cardiovascular Exam Cardiovascular Exam: REGULAR RHYTHM - GI/Abdominal Exam GI & Abdominal Exam: Normal Bowel Sounds - Rectal Exam Rectal Exam: Deferred - Extremities Exam Extremities Exam: Pedal Edema - Back Exam Back Exam: NORMAL INSPECTION - Neurological Exam Neurological Exam: Alert - Psychiatric Exam Psychiatric exam: Normal Affect - Skin Skin Exam: Normal Color Assessment and Plan (1) CAD (coronary artery disease) Assessment & Plan: patient will benefit from LAD stent. Status: Acute (2) Ventricular tachycardia Assessment & Plan: recommend AICD as secondary prophylaxis Status: Resolved (3) Acute on chronic combined systolic and diastolic congestive heart failure Assessment & Plan: will benefit from AICD. Status: Acute
[2016-08-13] MEDS: Piperacill/Tazo 3.375gm in Dex 3.375 GM/50 ML BAG IVPB SCH ×4 (05:50→22:29)
[2016-08-13] MEDS: Albuterol-Ipratrop 3 mg / 0.5 (3 ml) UD INH SCH ×2 (06:17→08:37)
--- NOTE | 2016-08-13 07:02 | CP.PCM.PN ---
Subjective - Date & Time of Evaluation Date of Evaluation: 08/13/16 Time of Evaluation: 07:02 Objective - Vital Signs/Intake and Output Vital Signs (last 24 hours): Temp Pulse Resp BP Pulse Ox 97.6 F 76 18 118/72 100 08/13/16 00:40 08/13/16 04:10 08/13/16 00:40 08/13/16 00:40 08/13/16 00:40 Intake and Output: 08/13/16 08/13/16 06:59 18:59 Intake Total 200 Balance 200 - Medications Medications: Current Medications Acetaminophen (Tylenol 325mg Tab) 650 mg PO Q6 PRN PRN Reason: Fever >100.4 F Last Admin: 08/13/16 01:23 Dose: 650 mg Albuterol/Ipratropium (Duoneb 3 Mg/0.5 Mg (3 Ml) Ud) 3 ml INH RQ6 [facility] Last Admin: 08/13/16 06:17 Dose: Not Given Albuterol/Ipratropium (Duoneb 3 Mg/0.5 Mg (3 Ml) Ud) 3 ml INH RQ2 PRN PRN Reason: Shortness of Breath Alprazolam (Xanax) 0.5 mg PO Q12 [facility] Last Admin: 08/12/16 21:38 Dose: 0.5 mg Aspirin (Aspirin Chewable) 81 mg PO DAILY [facility] Last Admin: 08/12/16 10:01 Dose: 81 mg Benzocaine/Menthol (Cepacol Sore Throat) 1 hill MT QID [facility] Last Admin: 08/12/16 21:41 Dose: 1 hill Carvedilol (Coreg) 6.25 mg PO BID [facility] Last Admin: 08/12/16 17:25 Dose: 6.25 mg Clopidogrel Bisulfate (Plavix) 75 mg PO DAILY [facility] Last Admin: 08/12/16 10:00 Dose: 75 mg Famotidine (Pepcid) 20 mg PO DAILY [facility] Last Admin: 08/12/16 10:02 Dose: 20 mg Ferrous Sulfate (Feosol Liq) 300 mg PO TID [facility] Last Admin: 08/12/16 17:23 Dose: 300 mg Furosemide (Lasix) 40 mg IVP DAILY [facility] Last Admin: 08/12/16 10:05 Dose: 40 mg Guaifenesin (Robitussin) 100 mg PO Q4H PRN PRN Reason: Cough Last Admin: 08/13/16 01:23 Dose: 100 mg Heparin Sodium (Porcine) (Heparin) 5,000 units SC Q8 [facility] Last Admin: 08/13/16 05:55 Dose: 5,000 units Piperacillin Sod/Tazobactam Sod (Zosyn 3.375 Gm Iv Premix) 3.375 gm in 50 mls @ 100 mls/hr IVPB Q6H [facility] Last Admin: 08/13/16 05:50 Dose: 100 mls/hr Insulin Human Regular (Novolin R) 0 unit SC ACHS [facility] PRN Reason: Protocol Last Admin: 08/12/16 21:36 Dose: Not Given Magnesium Hydroxide (Milk Of Magnesia) 30 ml PO BID PRN PRN Reason: Constipation Last Admin: 08/02/16 12:13 Dose: 30 ml Rosuvastatin Calcium (Crestor) 5 mg PO HS [facility] Last Admin: 08/12/16 21:38 Dose: 5 mg Saliva Substitute (First Magic Mouthwash) 5 ml PO BID [facility] Last Admin: 08/12/16 17:31 Dose: 5 ml Sennosides (Senokot Tab) 8.6 mg NG DAILY [facility] Last Admin: 08/12/16 10:43 Dose: 8.6 mg - Labs Labs: 08/12/16 06:36 08/12/16 06:33 PT 13.1 SECONDS (9.7-12.2) H 08/10/16 05:50 INR 1.2 08/10/16 05:50 APTT 36 SECONDS (21-34) H D 08/10/16 05:50 Assessment and Plan (1) CHF (congestive heart failure) Status: Acute
[2016-08-13] MEDS: (Novolin R) Insulin Human Regular 100 units/ml vial SC SCH ×4 (07:12→22:29)
[2016-08-13 07:14] LABS: BASO # 0.1 K/uL (0.0-0.2); BASO % 1.5 % (0.0-2.0); EOS # 0.5 K/uL (0.0-0.7); EOS % 6.1 % (0.0-4.0); HEMATOCRIT 28.1 % (34.0-47.0); LYMPH # 2.4 K/uL (1.0-4.3); LYMPH % 27.4 % (20.0-40.0); MEAN CELL VOLUME 71.5 fL (81.0-99.0); MEAN CORPUSCULAR HEMOGLOBIN 22.8 pg (27.0-31.0); MEAN CORPUSCULAR HGB CONC 31.9 g/dL (33.0-37.0); MEAN PLATELET VOLUME 9.7 fL (7.2-11.7); MONO % 11.4 % (0.0-10.0); NRBC % 0.1 % (0.0-2.0); RED CELL DISTRIBUTION WIDTH 20.1 % (11.5-14.5); WHITE BLOOD COUNT 8.7 K/uL (4.8-10.8)
[2016-08-13 07:25] LABS: CHLORIDE 101 mmol/L (98-107); SODIUM 137 mmol/L (132-148)
[2016-08-13 07:26] LABS: POTASSIUM 3.4 mmol/L (3.6-5.2)
[2016-08-13 07:28] LABS: ALB/GLOB RATIO 1.1 (1.0-2.1); ALKALINE PHOSPHATASE 74 U/L (38-126); ALT/SGPT 8 U/L (9-52); AST/SGOT 19 U/L (14-36); BILIRUBIN,TOTAL 0.6 mg/dL (0.2-1.3); BLOOD UREA NITROGEN 12 mg/dL (7-17); CARBON DIOXIDE 24 mmol/L (22-30); GFR AFRICAN-AMERICAN > 60; TOTAL PROTEIN 6.8 g/dL (6.3-8.3)
[2016-08-13 07:29] LABS: CALCIUM 8.7 mg/dl (8.6-10.4); GLUCOSE,RANDOM 85 mg/dL (65-105); PHOSPHOROUS 3.1 mg/dL (2.5-4.5)
[2016-08-13] MEDS: Ferrous Sulfate 300 mg/5 mL Liq UD PO SCH ×3 (09:17→17:31)
[2016-08-13] MEDS: Benzocaine/Menthol (Cepacol) Lozenge MT SCH ×4 (09:17→22:29)
[2016-08-13] MEDS: Mag&Al/Simet/Diphen/Lido 237 ML KIT PO SCH ×2 (09:19→17:31)
[2016-08-14] MEDS: Piperacill/Tazo 3.375gm in Dex 3.375 GM/50 ML BAG IVPB SCH ×4 (04:26→23:01)
[2016-08-14] MEDS: guaiFENesin 100 mg/5 ml Syrup UD PO PRN (04:26)
[2016-08-14] MEDS ORDERED: Benzocaine/Menthol (Cepacol) Lozenge MT ONE (05:15)
--- NOTE | 2016-08-14 06:49 | CP.PCM.PN ---
Subjective - Date & Time of Evaluation Date of Evaluation: 08/14/16 Time of Evaluation: 06:49 Objective - Vital Signs/Intake and Output Vital Signs (last 24 hours): Temp Pulse Resp BP Pulse Ox 99 F 73 20 108/63 100 08/13/16 23:45 08/14/16 00:50 08/13/16 23:45 08/13/16 23:45 08/13/16 23:45 - Medications Medications: Current Medications Acetaminophen (Tylenol 325mg Tab) 650 mg PO Q6 PRN PRN Reason: Fever >100.4 F Last Admin: 08/13/16 01:23 Dose: 650 mg Alprazolam (Xanax) 0.5 mg PO Q12H PRN PRN Reason: Anxiety Last Admin: 08/14/16 04:13 Dose: 0.5 mg Aspirin (Aspirin Chewable) 81 mg PO DAILY [facility] Last Admin: 08/13/16 09:17 Dose: 81 mg Benzocaine/Menthol (Cepacol Sore Throat) 1 hill MT QID [facility] Last Admin: 08/13/16 22:29 Dose: 1 hill Carvedilol (Coreg) 6.25 mg PO BID [facility] Last Admin: 08/13/16 17:31 Dose: 6.25 mg Clopidogrel Bisulfate (Plavix) 75 mg PO DAILY [facility] Last Admin: 08/13/16 09:17 Dose: 75 mg Famotidine (Pepcid) 20 mg PO DAILY [facility] Last Admin: 08/13/16 09:17 Dose: 20 mg Ferrous Sulfate (Feosol Liq) 300 mg PO TID [facility] Last Admin: 08/13/16 17:31 Dose: 300 mg Furosemide (Lasix) 40 mg IVP DAILY [facility] Last Admin: 08/13/16 09:28 Dose: 40 mg Guaifenesin (Robitussin) 100 mg PO Q4H PRN PRN Reason: Cough Last Admin: 08/14/16 04:26 Dose: 100 mg Piperacillin Sod/Tazobactam Sod (Zosyn 3.375 Gm Iv Premix) 3.375 gm in 50 mls @ 100 mls/hr IVPB Q6H [facility] Last Admin: 08/14/16 04:26 Dose: 100 mls/hr Insulin Human Regular (Novolin R) 0 unit SC ACHS [facility] PRN Reason: Protocol Last Admin: 08/13/16 22:29 Dose: Not Given Magnesium Hydroxide (Milk Of Magnesia) 30 ml PO BID PRN PRN Reason: Constipation Last Admin: 08/02/16 12:13 Dose: 30 ml Rosuvastatin Calcium (Crestor) 5 mg PO HS [facility] Last Admin: 08/13/16 22:29 Dose: Not Given Saliva Substitute (First Magic Mouthwash) 5 ml PO BID [facility] Last Admin: 08/13/16 17:31 Dose: 5 ml Sennosides (Senokot Tab) 8.6 mg NG DAILY [facility] Last Admin: 08/13/16 09:17 Dose: 8.6 mg Tramadol HCl (Ultram) 50 mg PO Q6H PRN PRN Reason: Pain Last Admin: 08/14/16 00:56 Dose: 50 mg - Labs Labs: 08/13/16 07:10 08/13/16 07:10 PT 13.1 SECONDS (9.7-12.2) H 08/10/16 05:50 INR 1.2 08/10/16 05:50 APTT 36 SECONDS (21-34) H D 08/10/16 05:50 Assessment and Plan (1) CHF (congestive heart failure) Status: Acute
[2016-08-14] MEDS: (Novolin R) Insulin Human Regular 100 units/ml vial SC SCH ×4 (07:16→21:21)
[2016-08-14 08:41] LABS: BASO # 0.1 K/uL (0.0-0.2); BASO % 0.8 % (0.0-2.0); EOS # 0.5 K/uL (0.0-0.7); EOS % 4.9 % (0.0-4.0); HEMATOCRIT 30.2 % (34.0-47.0); LYMPH # 1.9 K/uL (1.0-4.3); LYMPH % 18.1 % (20.0-40.0); MEAN CELL VOLUME 72.1 fL (81.0-99.0); MEAN CORPUSCULAR HEMOGLOBIN 22.8 pg (27.0-31.0); MEAN CORPUSCULAR HGB CONC 31.6 g/dL (33.0-37.0); MEAN PLATELET VOLUME 9.6 fL (7.2-11.7); MONO # 0.8 K/uL (0.0-0.8); MONO % 7.4 % (0.0-10.0); NRBC % 0.1 % (0.0-2.0); RED CELL DISTRIBUTION WIDTH 20.5 % (11.5-14.5); WHITE BLOOD COUNT 10.6 K/uL (4.8-10.8)
--- NOTE | 2016-08-14 08:50 | CP.PCM.PN ---
Subjective - Date & Time of Evaluation Date of Evaluation: 08/13/16 Time of Evaluation: 03:40 - Subjective Subjective: patient is resting comfortably. Objective - Vital Signs/Intake and Output Vital Signs (last 24 hours): Temp Pulse Resp BP Pulse Ox 99 F 80 20 108/63 100 08/13/16 23:45 08/14/16 08:00 08/13/16 23:45 08/13/16 23:45 08/13/16 23:45 - Medications Medications: Current Medications Acetaminophen (Tylenol 325mg Tab) 650 mg PO Q6 PRN PRN Reason: Fever >100.4 F Last Admin: 08/13/16 01:23 Dose: 650 mg Alprazolam (Xanax) 0.5 mg PO Q12H PRN PRN Reason: Anxiety Last Admin: 08/14/16 04:13 Dose: 0.5 mg Aspirin (Aspirin Chewable) 81 mg PO DAILY [facility] Last Admin: 08/13/16 09:17 Dose: 81 mg Benzocaine/Menthol (Cepacol Sore Throat) 1 hill MT QID [facility] Last Admin: 08/13/16 22:29 Dose: 1 hill Carvedilol (Coreg) 6.25 mg PO BID [facility] Last Admin: 08/13/16 17:31 Dose: 6.25 mg Clopidogrel Bisulfate (Plavix) 75 mg PO DAILY [facility] Last Admin: 08/13/16 09:17 Dose: 75 mg Famotidine (Pepcid) 20 mg PO DAILY [facility] Last Admin: 08/13/16 09:17 Dose: 20 mg Ferrous Sulfate (Feosol Liq) 300 mg PO TID [facility] Last Admin: 08/13/16 17:31 Dose: 300 mg Furosemide (Lasix) 40 mg IVP DAILY [facility] Last Admin: 08/13/16 09:28 Dose: 40 mg Guaifenesin (Robitussin) 100 mg PO Q4H PRN PRN Reason: Cough Last Admin: 08/14/16 04:26 Dose: 100 mg Piperacillin Sod/Tazobactam Sod (Zosyn 3.375 Gm Iv Premix) 3.375 gm in 50 mls @ 100 mls/hr IVPB Q6H [facility] Last Admin: 08/14/16 04:26 Dose: 100 mls/hr Insulin Human Regular (Novolin R) 0 unit SC ACHS [facility] PRN Reason: Protocol Last Admin: 08/14/16 07:16 Dose: Not Given Magnesium Hydroxide (Milk Of Magnesia) 30 ml PO BID PRN PRN Reason: Constipation Last Admin: 08/02/16 12:13 Dose: 30 ml Rosuvastatin Calcium (Crestor) 5 mg PO HS [facility] Last Admin: 08/13/16 22:29 Dose: Not Given Saliva Substitute (First Magic Mouthwash) 5 ml PO BID [facility] Last Admin: 08/13/16 17:31 Dose: 5 ml Sennosides (Senokot Tab) 8.6 mg NG DAILY [facility] Last Admin: 08/13/16 09:17 Dose: 8.6 mg Tramadol HCl (Ultram) 50 mg PO Q6H PRN PRN Reason: Pain Last Admin: 08/14/16 00:56 Dose: 50 mg - Labs Labs: 08/14/16 08:22 08/13/16 07:10 PT 13.1 SECONDS (9.7-12.2) H 08/10/16 05:50 INR 1.2 08/10/16 05:50 APTT 36 SECONDS (21-34) H D 08/10/16 05:50 - Constitutional Appears: Non-toxic - Head Exam Head Exam: NORMAL INSPECTION - Eye Exam Eye Exam: Normal appearance - ENT Exam ENT Exam: Mucous Membranes Moist - Neck Exam Neck Exam: Full ROM - Respiratory Exam Respiratory Exam: NORMAL BREATHING PATTERN - Cardiovascular Exam Cardiovascular Exam: REGULAR RHYTHM - GI/Abdominal Exam GI & Abdominal Exam: Normal Bowel Sounds - Rectal Exam Rectal Exam: Deferred - Extremities Exam Extremities Exam: Normal Inspection - Back Exam Back Exam: NORMAL INSPECTION - Neurological Exam Neurological Exam: Alert - Psychiatric Exam Psychiatric exam: Normal Affect - Skin Skin Exam: Normal Color Assessment and Plan (1) CAD (coronary artery disease) Assessment & Plan: patent stent in RCA, signifcant stenosis of LAD. will benefit from intervention. will need to discuss with the daughter regarding AICD and intervention. Status: Acute (2) Ventricular tachycardia Assessment & Plan: patient will benefit from AICD implantation. will discuss with the daughter. Status: Resolved (3) Hypertension Assessment & Plan: blood pressure control Status: Chronic (4) Ischemic cardiomyopathy Assessment & Plan: AICD to be discussed. Status: Chronic
[2016-08-14 08:52] LABS: CHLORIDE 98 mmol/L (98-107); POTASSIUM 3.7 mmol/L (3.6-5.2); SODIUM 136 mmol/L (132-148)
[2016-08-14 08:54] LABS: ALB/GLOB RATIO 1.1 (1.0-2.1); ALKALINE PHOSPHATASE 70 U/L (38-126); AST/SGOT 17 U/L (14-36); BILIRUBIN,TOTAL 0.9 mg/dL (0.2-1.3); BLOOD UREA NITROGEN 17 mg/dL (7-17); CARBON DIOXIDE 25 mmol/L (22-30); GFR AFRICAN-AMERICAN > 60; TOTAL PROTEIN 7.1 g/dL (6.3-8.3)
[2016-08-14 08:55] LABS: ALT/SGPT 13 U/L (9-52); GLUCOSE,RANDOM 117 mg/dL (65-105); MAGNESIUM 1.9 mg/dL (1.6-2.3); PHOSPHOROUS 3.7 mg/dL (2.5-4.5)
--- NOTE | 2016-08-14 08:55 | CP.PCM.PN ---
Subjective - Date & Time of Evaluation Date of Evaluation: 08/14/16 Time of Evaluation: 08:50 - Subjective Subjective: patient has no current chest pain. complains of pain in the throat when swallowing. Objective - Vital Signs/Intake and Output Vital Signs (last 24 hours): Temp Pulse Resp BP Pulse Ox 97.3 F L 80 20 120/74 99 08/14/16 07:00 08/14/16 08:00 08/14/16 07:00 08/14/16 07:00 08/14/16 07:00 - Medications Medications: Current Medications Acetaminophen (Tylenol 325mg Tab) 650 mg PO Q6 PRN PRN Reason: Fever >100.4 F Last Admin: 08/13/16 01:23 Dose: 650 mg Alprazolam (Xanax) 0.5 mg PO Q12H PRN PRN Reason: Anxiety Last Admin: 08/14/16 04:13 Dose: 0.5 mg Aspirin (Aspirin Chewable) 81 mg PO DAILY [facility] Last Admin: 08/13/16 09:17 Dose: 81 mg Benzocaine/Menthol (Cepacol Sore Throat) 1 hill MT QID [facility] Last Admin: 08/13/16 22:29 Dose: 1 hill Carvedilol (Coreg) 6.25 mg PO BID [facility] Last Admin: 08/13/16 17:31 Dose: 6.25 mg Clopidogrel Bisulfate (Plavix) 75 mg PO DAILY [facility] Last Admin: 08/13/16 09:17 Dose: 75 mg Famotidine (Pepcid) 20 mg PO DAILY [facility] Last Admin: 08/13/16 09:17 Dose: 20 mg Ferrous Sulfate (Feosol Liq) 300 mg PO TID [facility] Last Admin: 08/13/16 17:31 Dose: 300 mg Furosemide (Lasix) 40 mg IVP DAILY [facility] Last Admin: 08/13/16 09:28 Dose: 40 mg Guaifenesin (Robitussin) 100 mg PO Q4H PRN PRN Reason: Cough Last Admin: 08/14/16 04:26 Dose: 100 mg Piperacillin Sod/Tazobactam Sod (Zosyn 3.375 Gm Iv Premix) 3.375 gm in 50 mls @ 100 mls/hr IVPB Q6H [facility] Last Admin: 08/14/16 04:26 Dose: 100 mls/hr Insulin Human Regular (Novolin R) 0 unit SC ACHS [facility] PRN Reason: Protocol Last Admin: 08/14/16 07:16 Dose: Not Given Magnesium Hydroxide (Milk Of Magnesia) 30 ml PO BID PRN PRN Reason: Constipation Last Admin: 08/02/16 12:13 Dose: 30 ml Rosuvastatin Calcium (Crestor) 5 mg PO HS [facility] Last Admin: 08/13/16 22:29 Dose: Not Given Saliva Substitute (First Magic Mouthwash) 5 ml PO BID [facility] Last Admin: 08/13/16 17:31 Dose: 5 ml Sennosides (Senokot Tab) 8.6 mg NG DAILY [facility] Last Admin: 08/13/16 09:17 Dose: 8.6 mg Tramadol HCl (Ultram) 50 mg PO Q6H PRN PRN Reason: Pain Last Admin: 08/14/16 00:56 Dose: 50 mg - Labs Labs: 08/14/16 08:22 08/13/16 07:10 PT 13.1 SECONDS (9.7-12.2) H 08/10/16 05:50 INR 1.2 08/10/16 05:50 APTT 36 SECONDS (21-34) H D 08/10/16 05:50 - Constitutional Appears: Non-toxic - Head Exam Head Exam: NORMAL INSPECTION - Eye Exam Eye Exam: Normal appearance - ENT Exam ENT Exam: Mucous Membranes Moist - Neck Exam Neck Exam: Full ROM - Respiratory Exam Respiratory Exam: NORMAL BREATHING PATTERN - Cardiovascular Exam Cardiovascular Exam: REGULAR RHYTHM - GI/Abdominal Exam GI & Abdominal Exam: Normal Bowel Sounds - Rectal Exam Rectal Exam: Deferred - Extremities Exam Extremities Exam: Pedal Edema - Back Exam Back Exam: NORMAL INSPECTION - Neurological Exam Neurological Exam: Alert - Psychiatric Exam Psychiatric exam: Normal Affect - Skin Skin Exam: Normal Color Assessment and Plan (1) CAD (coronary artery disease) Assessment & Plan: antiplatelet therapy Status: Acute (2) Ventricular tachycardia Assessment & Plan: [facility] to discuss with the daughter. Status: Resolved (3) Hypertension Assessment & Plan: blood pressure control Status: Chronic (4) Ischemic cardiomyopathy Assessment & Plan: will need transfer for AICD. I am awaiting discussion with the patent's daughter/ Status: Chronic
[2016-08-14] MEDS: Ferrous Sulfate 300 mg/5 mL Liq UD PO SCH ×3 (09:34→18:13)
[2016-08-14] MEDS: Mag&Al/Simet/Diphen/Lido 237 ML KIT PO SCH ×2 (09:34→18:14)
[2016-08-14] MEDS: Benzocaine/Menthol (Cepacol) Lozenge MT SCH ×4 (09:34→21:20)
[2016-08-15] MEDS: Piperacill/Tazo 3.375gm in Dex 3.375 GM/50 ML BAG IVPB SCH ×4 (05:56→22:36)
[2016-08-15 06:32] LABS: BASO # 0.1 K/uL (0.0-0.2); EOS # 0.6 K/uL (0.0-0.7); LYMPH # 1.8 K/uL (1.0-4.3); MEAN CELL VOLUME 72.7 fL (81.0-99.0); MEAN CORPUSCULAR HGB CONC 31.7 g/dL (33.0-37.0)
[2016-08-15 06:42] LABS: BASO % 0.6 % (0.0-2.0); CHLORIDE 97 mmol/L (98-107); EOS % 6.1 % (0.0-4.0); LYMPH % 17.7 % (20.0-40.0); MEAN PLATELET VOLUME 10.1 fL (7.2-11.7); MONO # 0.7 K/uL (0.0-0.8); MONO % 6.6 % (0.0-10.0); NRBC % 0.5 % (0.0-2.0); RED CELL DISTRIBUTION WIDTH 20.4 % (11.5-14.5); WHITE BLOOD COUNT 10.2 K/uL (4.8-10.8)
[2016-08-15 06:43] LABS: POTASSIUM 3.9 mmol/L (3.6-5.2); SODIUM 134 mmol/L (132-148)
[2016-08-15 06:45] LABS: ALB/GLOB RATIO 1.2 (1.0-2.1); ALKALINE PHOSPHATASE 70 U/L (38-126); ALT/SGPT 10 U/L (9-52); AST/SGOT 18 U/L (14-36); BILIRUBIN,TOTAL 0.8 mg/dL (0.2-1.3); CARBON DIOXIDE 24 mmol/L (22-30); GFR AFRICAN-AMERICAN > 60
[2016-08-15 06:46] LABS: BLOOD UREA NITROGEN 15 mg/dL (7-17); GLUCOSE,RANDOM 90 mg/dL (65-105); MAGNESIUM 1.9 mg/dL (1.6-2.3); PHOSPHOROUS 4.2 mg/dL (2.5-4.5)
[2016-08-15] MEDS: (Novolin R) Insulin Human Regular 100 units/ml vial SC SCH ×4 (07:21→21:37)
--- NOTE | 2016-08-15 07:53 | CP.PCM.PN ---
Subjective - Date & Time of Evaluation Date of Evaluation: 08/15/16 Time of Evaluation: 07:35 - Subjective Subjective: patient is resting comfortably in bed. Objective - Vital Signs/Intake and Output Vital Signs (last 24 hours): Temp Pulse Resp BP Pulse Ox 98.4 F 71 20 110/64 100 08/15/16 07:00 08/15/16 07:00 08/15/16 07:00 08/15/16 07:00 08/15/16 07:00 Intake and Output: 08/15/16 08/15/16 06:59 18:59 Intake Total 200 Balance 200 - Medications Medications: Current Medications Acetaminophen (Tylenol 325mg Tab) 650 mg PO Q6 PRN PRN Reason: Fever >100.4 F Last Admin: 08/13/16 01:23 Dose: 650 mg Alprazolam (Xanax) 0.5 mg PO Q12H PRN PRN Reason: Anxiety Last Admin: 08/15/16 06:46 Dose: 0.5 mg Aspirin (Aspirin Chewable) 81 mg PO DAILY [facility] Last Admin: 08/14/16 09:35 Dose: 81 mg Benzocaine/Menthol (Cepacol Sore Throat) 1 hill MT QID [facility] Last Admin: 08/14/16 21:20 Dose: 1 hill Carvedilol (Coreg) 6.25 mg PO BID [facility] Last Admin: 08/14/16 18:13 Dose: 6.25 mg Clopidogrel Bisulfate (Plavix) 75 mg PO DAILY [facility] Last Admin: 08/14/16 09:35 Dose: 75 mg Famotidine (Pepcid) 20 mg PO DAILY [facility] Last Admin: 08/14/16 09:35 Dose: 20 mg Ferrous Sulfate (Feosol Liq) 300 mg PO TID [facility] Last Admin: 08/14/16 18:13 Dose: 300 mg Furosemide (Lasix) 40 mg IVP DAILY [facility] Last Admin: 08/14/16 09:35 Dose: 40 mg Guaifenesin (Robitussin) 100 mg PO Q4H PRN PRN Reason: Cough Last Admin: 08/14/16 04:26 Dose: 100 mg Piperacillin Sod/Tazobactam Sod (Zosyn 3.375 Gm Iv Premix) 3.375 gm in 50 mls @ 100 mls/hr IVPB Q6H [facility] Last Admin: 08/15/16 05:56 Dose: 100 mls/hr Insulin Human Regular (Novolin R) 0 unit SC ACHS [facility] PRN Reason: Protocol Last Admin: 08/15/16 07:21 Dose: Not Given Magnesium Hydroxide (Milk Of Magnesia) 30 ml PO BID PRN PRN Reason: Constipation Last Admin: 08/02/16 12:13 Dose: 30 ml Rosuvastatin Calcium (Crestor) 5 mg PO HS [facility] Last Admin: 08/14/16 21:20 Dose: 5 mg Saliva Substitute (First Magic Mouthwash) 5 ml PO BID [facility] Last Admin: 08/14/16 18:14 Dose: 5 ml Sennosides (Senokot Tab) 8.6 mg NG DAILY [facility] Last Admin: 08/14/16 09:34 Dose: 8.6 mg Tramadol HCl (Ultram) 50 mg PO Q6H PRN PRN Reason: Pain Last Admin: 08/15/16 05:53 Dose: 50 mg - Labs Labs: 08/15/16 06:19 08/15/16 06:19 PT 13.1 SECONDS (9.7-12.2) H 08/10/16 05:50 INR 1.2 08/10/16 05:50 APTT 36 SECONDS (21-34) H D 08/10/16 05:50 - Constitutional Appears: Non-toxic - Head Exam Head Exam: NORMAL INSPECTION - Eye Exam Eye Exam: Normal appearance - ENT Exam ENT Exam: Mucous Membranes Moist - Neck Exam Neck Exam: Full ROM - Respiratory Exam Respiratory Exam: Decreased Breath Sounds - Cardiovascular Exam Cardiovascular Exam: REGULAR RHYTHM - GI/Abdominal Exam GI & Abdominal Exam: Normal Bowel Sounds - Rectal Exam Rectal Exam: Deferred - Extremities Exam Extremities Exam: Normal Inspection - Neurological Exam Neurological Exam: Alert - Psychiatric Exam Psychiatric exam: Normal Affect - Skin Skin Exam: Normal Color Assessment and Plan (1) CAD (coronary artery disease) Assessment & Plan: s/p PCI RCA. signifcant stenosis noted in LAD. has severe LV dysfunction. would need high risk PCI. I will discuss with the pdaughter. Status: Acute (2) Ventricular tachycardia Assessment & Plan: out of hospital cardiac arrest. requires AICD for secondary prevention. I will transfer for AICD placement Status: Resolved (3) Acute on chronic combined systolic and diastolic congestive heart failure Assessment & Plan: improved Status: Acute
--- NOTE | 2016-08-15 09:36 | PN ---
DATE: 08/13/2016 Continue to give supportive care, diuresis. Discussed with Dr. Cunningham, cardiology. [place] [facility] [place], as well as ____. Gisselle Vogel MD cc: [id number] TT: 08/13/2016 16:36:57 Confirmation # [id number] Dictation # [id number]
[2016-08-15] MEDS: Ferrous Sulfate 300 mg/5 mL Liq UD PO SCH ×3 (09:47→18:22)
[2016-08-15] MEDS: Mag&Al/Simet/Diphen/Lido 237 ML KIT PO SCH ×2 (09:48→18:22)
[2016-08-15] MEDS: Benzocaine/Menthol (Cepacol) Lozenge MT SCH ×4 (09:48→21:33)
--- NOTE | 2016-08-15 12:02 | CP.PCM.PN ---
<Jaquan Plascencia - Last Filed: 08/15/16 11:58> Subjective - Date & Time of Evaluation Date of Evaluation: 08/15/16 Time of Evaluation: 11:58 - Subjective Subjective: Progress Note for Dr. Gustafson Pt seen and examined at bedside. Pt doing well overnight with no acute events. Pt states she is nervous for ICD procedure. No complaints at this time. Denies CP, SOB, N/V/D. Objective - Vital Signs/Intake and Output Vital Signs (last 24 hours): Temp Pulse Resp BP Pulse Ox 98.4 F 72 20 123/71 100 08/15/16 07:00 08/15/16 08:00 08/15/16 07:00 08/15/16 09:53 08/15/16 07:00 Intake and Output: 08/15/16 08/15/16 06:59 18:59 Intake Total 200 Balance 200 - Medications Medications: Current Medications Acetaminophen (Tylenol 325mg Tab) 650 mg PO Q6 PRN PRN Reason: Fever >100.4 F Last Admin: 08/13/16 01:23 Dose: 650 mg Alprazolam (Xanax) 0.5 mg PO Q12H PRN PRN Reason: Anxiety Last Admin: 08/15/16 06:46 Dose: 0.5 mg Aspirin (Aspirin Chewable) 81 mg PO DAILY [facility] Last Admin: 08/15/16 09:48 Dose: 81 mg Benzocaine/Menthol (Cepacol Sore Throat) 1 hill MT QID [facility] Last Admin: 08/15/16 09:48 Dose: 1 hill Carvedilol (Coreg) 6.25 mg PO BID [facility] Last Admin: 08/15/16 09:48 Dose: 6.25 mg Clopidogrel Bisulfate (Plavix) 75 mg PO DAILY [facility] Last Admin: 08/15/16 09:47 Dose: 75 mg Famotidine (Pepcid) 20 mg PO DAILY [facility] Last Admin: 08/15/16 09:48 Dose: 20 mg Ferrous Sulfate (Feosol Liq) 300 mg PO TID [facility] Last Admin: 08/15/16 09:47 Dose: 300 mg Furosemide (Lasix) 40 mg IVP DAILY [facility] Last Admin: 08/15/16 09:53 Dose: 40 mg Guaifenesin (Robitussin) 100 mg PO Q4H PRN PRN Reason: Cough Last Admin: 08/14/16 04:26 Dose: 100 mg Piperacillin Sod/Tazobactam Sod (Zosyn 3.375 Gm Iv Premix) 3.375 gm in 50 mls @ 100 mls/hr IVPB Q6H [facility] Last Admin: 08/15/16 11:36 Dose: 100 mls/hr Insulin Human Regular (Novolin R) 0 unit SC ACHS [facility] PRN Reason: Protocol Last Admin: 08/15/16 11:40 Dose: Not Given Magnesium Hydroxide (Milk Of Magnesia) 30 ml PO BID PRN PRN Reason: Constipation Last Admin: 08/02/16 12:13 Dose: 30 ml Rosuvastatin Calcium (Crestor) 5 mg PO HS [facility] Last Admin: 08/14/16 21:20 Dose: 5 mg Saliva Substitute (First Magic Mouthwash) 5 ml PO BID [facility] Last Admin: 08/15/16 09:48 Dose: 5 ml Sennosides (Senokot Tab) 8.6 mg NG DAILY [facility] Last Admin: 08/15/16 09:48 Dose: Not Given Tramadol HCl (Ultram) 50 mg PO Q6H PRN PRN Reason: Pain Last Admin: 08/15/16 05:53 Dose: 50 mg - Labs Labs: 08/15/16 06:19 08/15/16 06:19 PT 13.1 SECONDS (9.7-12.2) H 08/10/16 05:50 INR 1.2 08/10/16 05:50 APTT 36 SECONDS (21-34) H D 08/10/16 05:50 - Constitutional Appears: Well, No Acute Distress - Head Exam Head Exam: ATRAUMATIC, NORMAL INSPECTION, NORMOCEPHALIC - Respiratory Exam Respiratory Exam: Clear to Ausculation Bilateral, NORMAL BREATHING PATTERN - Cardiovascular Exam Cardiovascular Exam: RRR, +S1, +S2 - GI/Abdominal Exam GI & Abdominal Exam: Soft, Normal Bowel Sounds. absent: Tenderness - Extremities Exam Extremities Exam: Normal Inspection. absent: Pedal Edema - Neurological Exam Neurological Exam: Alert, Awake, Oriented x3 - Skin Skin Exam: Intact, Normal Color, Warm Assessment and Plan (1) CHF (congestive heart failure) Assessment & Plan: Recent cardiac cath shows severe LV dysfunction with EF of 35% Pt will be transferred for ICD placement later today. Status: Acute <Iraida Gustafson - Last Filed: 08/15/16 15:05> Objective - Vital Signs/Intake and Output Vital Signs (last 24 hours): Temp Pulse Resp BP Pulse Ox 98.4 F 79 20 123/71 97 08/15/16 07:00 08/15/16 12:46 08/15/16 07:00 08/15/16 09:53 08/15/16 12:46 Intake and Output: 08/15/16 08/15/16 06:59 18:59 Intake Total 200 Balance 200 - Medications Medications: Current Medications Acetaminophen (Tylenol 325mg Tab) 650 mg PO Q6 PRN PRN Reason: Fever >100.4 F Last Admin: 08/13/16 01:23 Dose: 650 mg Alprazolam (Xanax) 0.5 mg PO Q12H PRN PRN Reason: Anxiety Last Admin: 08/15/16 06:46 Dose: 0.5 mg Aspirin (Aspirin Chewable) 81 mg PO DAILY [facility] Last Admin: 08/15/16 09:48 Dose: 81 mg Benzocaine/Menthol (Cepacol Sore Throat) 1 hill MT QID [facility] Last Admin: 08/15/16 13:53 Dose: 1 hill Carvedilol (Coreg) 6.25 mg PO BID [facility] Last Admin: 08/15/16 09:48 Dose: 6.25 mg Clopidogrel Bisulfate (Plavix) 75 mg PO DAILY [facility] Last Admin: 08/15/16 09:47 Dose: 75 mg Famotidine (Pepcid) 20 mg PO DAILY [facility] Last Admin: 08/15/16 09:48 Dose: 20 mg Ferrous Sulfate (Feosol Liq) 300 mg PO TID [facility] Last Admin: 08/15/16 13:53 Dose: 300 mg Furosemide (Lasix) 40 mg IVP DAILY [facility] Last Admin: 08/15/16 09:53 Dose: 40 mg Guaifenesin (Robitussin) 100 mg PO Q4H PRN PRN Reason: Cough Last Admin: 08/14/16 04:26 Dose: 100 mg Piperacillin Sod/Tazobactam Sod (Zosyn 3.375 Gm Iv Premix) 3.375 gm in 50 mls @ 100 mls/hr IVPB Q6H [facility] Last Admin: 08/15/16 11:36 Dose: 100 mls/hr Insulin Human Regular (Novolin R) 0 unit SC ACHS [facility] PRN Reason: Protocol Last Admin: 08/15/16 11:40 Dose: Not Given Magnesium Hydroxide (Milk Of Magnesia) 30 ml PO BID PRN PRN Reason: Constipation Last Admin: 08/02/16 12:13 Dose: 30 ml Rosuvastatin Calcium (Crestor) 5 mg PO HS [facility] Last Admin: 08/14/16 21:20 Dose: 5 mg Saliva Substitute (First Magic Mouthwash) 5 ml PO BID [facility] Last Admin: 08/15/16 09:48 Dose: 5 ml Sennosides (Senokot Tab) 8.6 mg NG DAILY [facility] Last Admin: 08/15/16 09:48 Dose: Not Given Tramadol HCl (Ultram) 50 mg PO Q6H PRN PRN Reason: Pain Last Admin: 08/15/16 05:53 Dose: 50 mg - Labs Labs: 08/15/16 06:19 08/15/16 06:19 PT 13.1 SECONDS (9.7-12.2) H 08/10/16 05:50 INR 1.2 08/10/16 05:50 APTT 36 SECONDS (21-34) H D 08/10/16 05:50 Assessment and Plan (1) CHF (congestive heart failure) Status: Acute Attending/Attestation - Attestation I have personally seen and examined this patient.: Yes I have fully participated in the care of the patient.: Yes I have reviewed all pertinent clinical information, including history, physical exam and plan: Yes Notes (Text): 08/15/16 15:03 Discussed with Juanita pt's daughter and all family in agreement pt needs ICD Pt with out of hospital VTACH arrest. Will require ICD for secondary prophylaxis. Will arrange Transfer in am Coronary workup as per pmd Dr. Cunningham as an outpt
--- NOTE | 2016-08-15 19:19 | CP.PCM.PN ---
Subjective - Date & Time of Evaluation Date of Evaluation: 08/15/16 Time of Evaluation: 09:00 - Subjective Subjective: PGY2 Medicine Note - Dr. Beck's service: Patient seen and examined at bedside, resting comfortably. No overnight events per nursing. Patient states sore throat is improving. Plan for tx in AM for ICD placement, per cardiology. Objective - Vital Signs/Intake and Output Vital Signs (last 24 hours): Temp Pulse Resp BP Pulse Ox 98 F 69 20 103/54 L 95 08/15/16 15:00 08/15/16 15:00 08/15/16 15:00 08/15/16 15:00 08/15/16 15:00 - Medications Medications: Current Medications Acetaminophen (Tylenol 325mg Tab) 650 mg PO Q6 PRN PRN Reason: Fever >100.4 F Last Admin: 08/13/16 01:23 Dose: 650 mg Alprazolam (Xanax) 0.5 mg PO Q12H PRN PRN Reason: Anxiety Last Admin: 08/15/16 06:46 Dose: 0.5 mg Aspirin (Aspirin Chewable) 81 mg PO DAILY [facility] Last Admin: 08/15/16 09:48 Dose: 81 mg Benzocaine/Menthol (Cepacol Sore Throat) 1 hill MT QID [facility] Last Admin: 08/15/16 18:22 Dose: 1 hill Carvedilol (Coreg) 6.25 mg PO BID [facility] Last Admin: 08/15/16 18:25 Dose: Not Given Clopidogrel Bisulfate (Plavix) 75 mg PO DAILY [facility] Last Admin: 08/15/16 09:47 Dose: 75 mg Famotidine (Pepcid) 20 mg PO DAILY [facility] Last Admin: 08/15/16 09:48 Dose: 20 mg Ferrous Sulfate (Feosol Liq) 300 mg PO TID [facility] Last Admin: 08/15/16 18:22 Dose: 300 mg Furosemide (Lasix) 40 mg IVP DAILY [facility] Last Admin: 08/15/16 09:53 Dose: 40 mg Guaifenesin (Robitussin) 100 mg PO Q4H PRN PRN Reason: Cough Last Admin: 08/14/16 04:26 Dose: 100 mg Piperacillin Sod/Tazobactam Sod (Zosyn 3.375 Gm Iv Premix) 3.375 gm in 50 mls @ 100 mls/hr IVPB Q6H [facility] Last Admin: 08/15/16 18:00 Dose: 100 mls/hr Insulin Human Regular (Novolin R) 0 unit SC ACHS [facility] PRN Reason: Protocol Last Admin: 08/15/16 18:25 Dose: Not Given Magnesium Hydroxide (Milk Of Magnesia) 30 ml PO BID PRN PRN Reason: Constipation Last Admin: 08/02/16 12:13 Dose: 30 ml Rosuvastatin Calcium (Crestor) 5 mg PO HS [facility] Last Admin: 08/14/16 21:20 Dose: 5 mg Saliva Substitute (First Magic Mouthwash) 5 ml PO BID [facility] Last Admin: 08/15/16 18:22 Dose: 5 ml Sennosides (Senokot Tab) 8.6 mg NG DAILY [facility] Last Admin: 08/15/16 09:48 Dose: Not Given Tramadol HCl (Ultram) 50 mg PO Q6H PRN PRN Reason: Pain Last Admin: 08/15/16 15:21 Dose: 50 mg - Labs Labs: 08/15/16 06:19 08/15/16 06:19 PT 13.1 SECONDS (9.7-12.2) H 08/10/16 05:50 INR 1.2 08/10/16 05:50 APTT 36 SECONDS (21-34) H D 08/10/16 05:50 - Additional Findings Additional findings: - Constitutional Appears: Non-toxic, No Acute Distress - Head Exam Head Exam: NORMAL INSPECTION - Eye Exam Eye Exam: EOMI - ENT Exam Additional comments: erythematous oropharynx (improving) - Respiratory Exam Respiratory Exam: Clear to Ausculation Bilateral, NORMAL BREATHING PATTERN. absent: Rales, Rhonchi, Wheezes - Cardiovascular Exam Cardiovascular Exam: REGULAR RHYTHM, +S1, +S2. absent: Gallop, Rubs, Murmur - GI/Abdominal Exam GI & Abdominal Exam: Soft, Normal Bowel Sounds. absent: Tenderness - Extremities Exam Extremities Exam: absent: Pedal Edema - Neurological Exam Neurological Exam: Alert, Awake, Oriented x3 - Psychiatric Exam Psychiatric exam: Normal Affect, Normal Mood - Skin Skin Exam: Normal Color, Warm Assessment and Plan - Assessment and Plan (Free Text) Assessment: V Tach and CAD 08/15: Recent cardiac cath shows severe LV dysfunction with EF of 35%. Per Cardiology, Pt will be transferred for ICD placement later today/tomorrow ROMIs negative ECHO 08/02/16 - suboptimal study. LVEF approximately 35%, septum appears akinetic and dyskinetic, moderate pulmonary hypertension Interventional cardio consult - Dr. Cunningham - help appreciated EP cardio consult - Dr. Gustafson - help appreciated Cardiac cath 08/11/16 - left main patent, LAD has eccentric calcification of the mid vessel. 80% stenosis of the mid vessel with a hazy opacity in the mid. Left circumflex has 50% stenosis in proximal vessel. RCA has a widely patent stent and eccentric calcification in the distal vessel. LVEF is 35%. Dr. Cunningham plan in his note involve defibrillator placement discussion with family and Dr. Gustafson and possible PCI for Mid LAD. Sore throat Improving Continue Cepacol Respiratory Failure Hypoxemia on admission Patient was intubated and required ventilatory support until 08/05/16 Patient on Zosyn 3.375 gm IVPB Q6H (started 08/12). Robitussin added for cough Acute on Chronic systolic heart failure ECHO 08/02/16 - suboptimal study. LVEF approximately 35%, septum appears akinetic and dyskinetic, moderate pulmonary hypertension Echo- 06/25/16- Systolic function is mildly impaired, EF- 40-45%. Akinesis and thinning of basal and mid inferior wall and septal wall segments (both anterior and inferior)indicative of prior [place]. LA moderately dilated. RA mildly dilated. AV moderately sclerotic. Mod tricuspid regurg (please see full report) Patient was seen by Dr Kelley on previous visit. He recommended conservative treatment due to patient's DNR/DNI status at the time. However, the patient wishes to be full code on this visit and prior visit. Patient refused cardiac cath yesterday but says she wants it today. Per Dr. Gustafson on last visit, patient is not a candidate for ICD at this time. Patient has indicated that she does not want an ICD. Risks of her low EF and not receiving an ICD was explained in detail last visit. MUGA scan- 06/20/16- EF 32% NEO neg x1 BNP 5210 Continue Coreg 6.25mg PO BID Continue Plavix 75mg PO Daily Continue Lasix 40mg IVP daily Continue Asa 81mg PO Daily Anemia 08/15: Hgb 9.2. Continue Feosol 300mg PO TID f/u stool occult, iron panel, B12/folate (possibly not drawn). Hypotension 08/15: Stable Continue to monitor. Prophylactic Measure Heparin 5000U SC Q12h (hold for possible procedure) SCDs Pepcid 20mg PO qd. All medical management as per Dr. Beck.
[2016-08-16] MEDS: Piperacill/Tazo 3.375gm in Dex 3.375 GM/50 ML BAG IVPB SCH ×4 (05:22→22:19)
[2016-08-16] MEDS: (Novolin R) Insulin Human Regular 100 units/ml vial SC SCH ×3 (08:00→22:24)
[2016-08-16] MEDS: Mag&Al/Simet/Diphen/Lido 237 ML KIT PO SCH ×2 (09:00→20:40)
[2016-08-16] MEDS: Benzocaine/Menthol (Cepacol) Lozenge MT SCH ×3 (10:12→22:17)
[2016-08-16] MEDS: Ferrous Sulfate 300 mg/5 mL Liq UD PO SCH ×2 (10:13→20:40)
--- NOTE | 2016-08-16 10:55 | CP.PCM.PN ---
Subjective - Date & Time of Evaluation Date of Evaluation: 08/16/16 Time of Evaluation: 07:10 - Subjective Subjective: PGY2 Medicine Note - Dr. Beck's service: Patient seen and examined at bedside, resting comfortably. No overnight events per nursing. Patient states sore throat is improved. Patient is being transferred to [place] today for ICD placement. She will return to [facility] after procedure. She is nervous about the procedure, but understands it is necessary in light of her cardiac function. Objective - Vital Signs/Intake and Output Vital Signs (last 24 hours): Temp Pulse Resp BP Pulse Ox 97.2 F L 78 20 114/72 99 08/16/16 08:17 08/16/16 09:47 08/16/16 08:17 08/16/16 08:17 08/16/16 09:47 - Medications Medications: Current Medications Acetaminophen (Tylenol 325mg Tab) 650 mg PO Q6 PRN PRN Reason: Fever >100.4 F Last Admin: 08/13/16 01:23 Dose: 650 mg Alprazolam (Xanax) 0.5 mg PO Q12H PRN PRN Reason: Anxiety Last Admin: 08/16/16 03:09 Dose: 0.5 mg Aspirin (Aspirin Chewable) 81 mg PO DAILY [facility] Last Admin: 08/16/16 10:12 Dose: Not Given Benzocaine/Menthol (Cepacol Sore Throat) 1 hill MT QID [facility] Last Admin: 08/16/16 10:12 Dose: Not Given Carvedilol (Coreg) 6.25 mg PO BID [facility] Last Admin: 08/16/16 09:00 Dose: 6.25 mg Clopidogrel Bisulfate (Plavix) 75 mg PO DAILY [facility] Last Admin: 08/16/16 10:14 Dose: Not Given Famotidine (Pepcid) 20 mg PO DAILY [facility] Last Admin: 08/16/16 10:14 Dose: Not Given Ferrous Sulfate (Feosol Liq) 300 mg PO TID [facility] Last Admin: 08/16/16 10:13 Dose: Not Given Furosemide (Lasix) 40 mg IVP DAILY [facility] Last Admin: 08/16/16 10:13 Dose: Not Given Guaifenesin (Robitussin) 100 mg PO Q4H PRN PRN Reason: Cough Last Admin: 08/14/16 04:26 Dose: 100 mg Piperacillin Sod/Tazobactam Sod (Zosyn 3.375 Gm Iv Premix) 3.375 gm in 50 mls @ 100 mls/hr IVPB Q6H [facility] Last Admin: 08/16/16 10:16 Dose: 100 mls/hr Insulin Human Regular (Novolin R) 0 unit SC ACHS [facility] PRN Reason: Protocol Last Admin: 08/16/16 08:00 Dose: Not Given Magnesium Hydroxide (Milk Of Magnesia) 30 ml PO BID PRN PRN Reason: Constipation Last Admin: 08/02/16 12:13 Dose: 30 ml Rosuvastatin Calcium (Crestor) 5 mg PO HS [facility] Last Admin: 08/15/16 21:33 Dose: 5 mg Saliva Substitute (First Magic Mouthwash) 5 ml PO BID [facility] Last Admin: 08/16/16 09:00 Dose: 5 ml Sennosides (Senokot Tab) 8.6 mg NG DAILY [facility] Last Admin: 08/16/16 10:14 Dose: Not Given Tramadol HCl (Ultram) 50 mg PO Q6H PRN PRN Reason: Pain Last Admin: 08/16/16 02:38 Dose: 50 mg - Labs Labs: 08/15/16 06:19 08/15/16 06:19 PT 13.1 SECONDS (9.7-12.2) H 08/10/16 05:50 INR 1.2 08/10/16 05:50 APTT 36 SECONDS (21-34) H D 08/10/16 05:50 - Additional Findings Additional findings: - Constitutional Appears: Non-toxic, No Acute Distress - Head Exam Head Exam: NORMAL INSPECTION - Eye Exam Eye Exam: EOMI - ENT Exam Additional comments: erythematous oropharynx (improving) - Respiratory Exam Respiratory Exam: Clear to Ausculation Bilateral, NORMAL BREATHING PATTERN. absent: Rales, Rhonchi, Wheezes - Cardiovascular Exam Cardiovascular Exam: REGULAR RHYTHM, +S1, +S2. absent: Gallop, Rubs, Murmur - GI/Abdominal Exam GI & Abdominal Exam: Soft, Normal Bowel Sounds. absent: Tenderness - Extremities Exam Extremities Exam: absent: Pedal Edema - Neurological Exam Neurological Exam: Alert, Awake, Oriented x3 - Psychiatric Exam Psychiatric exam: Normal Affect, Normal Mood - Skin Skin Exam: Normal Color, Warm Assessment and Plan - Assessment and Plan (Free Text) Assessment: V Tach and CAD 08/16: Patient transferred to [place] for ICD placement. Will return when procedure complete. 08/15: Recent cardiac cath shows severe LV dysfunction with EF of 35%. Per Cardiology, Pt will be transferred for ICD placement later today/tomorrow ROMIs negative ECHO 08/02/16 - suboptimal study. LVEF approximately 35%, septum appears akinetic and dyskinetic, moderate pulmonary hypertension Interventional cardio consult - Dr. Cunningham - help appreciated EP cardio consult - Dr. Gustafson - help appreciated Cardiac cath 08/11/16 - left main patent, LAD has eccentric calcification of the mid vessel. 80% stenosis of the mid vessel with a hazy opacity in the mid. Left circumflex has 50% stenosis in proximal vessel. RCA has a widely patent stent and eccentric calcification in the distal vessel. LVEF is 35%. Dr. Cunningham plan in his note involve defibrillator placement discussion with family and Dr. Gustafson and possible PCI for Mid LAD. Sore throat Improving Continue Cepacol Respiratory Failure 08/16: Patient on Zosyn 3.375 gm IVPB Q6H (started 08/12). Robitussin for cough ( improved) Hypoxemia on admission Patient was intubated and required ventilatory support until 08/05/16 Acute on Chronic systolic heart failure ECHO 08/02/16 - suboptimal study. LVEF approximately 35%, septum appears akinetic and dyskinetic, moderate pulmonary hypertension Echo- 06/25/16- Systolic function is mildly impaired, EF- 40-45%. Akinesis and thinning of basal and mid inferior wall and septal wall segments (both anterior and inferior)indicative of prior [place]. LA moderately dilated. RA mildly dilated. AV moderately sclerotic. Mod tricuspid regurg (please see full report) Patient was seen by Dr Kelley on previous visit. He recommended conservative treatment due to patient's DNR/DNI status at the time. However, the patient wishes to be full code on this visit and prior visit. Patient refused cardiac cath yesterday but says she wants it today. Per Dr. Gustafson on last visit, patient is not a candidate for ICD at this time. Patient has indicated that she does not want an ICD. Risks of her low EF and not receiving an ICD was explained in detail last visit. MUGA scan- 4/24/17- EF 32% NEO neg x1 BNP 5210 Continue Coreg 6.25mg PO BID Continue Plavix 75mg PO Daily Continue Lasix 40mg IVP daily Continue Asa 81mg PO Daily Anemia 08/15-08/16: Hgb 9.2. Continue to monitor. Continue Feosol 300mg PO TID f/u stool occult, iron panel, B12/folate (possibly not drawn). Hypotension 08/15-08/16: Stable. Continue to monitor. Prophylactic Measure Heparin 5000U SC Q12h (hold for possible procedure) SCDs Pepcid 20mg PO qd. All medical management as per Dr. Beck.
--- NOTE | 2016-08-16 11:04 | CP.PCM.PN ---
Subjective - Date & Time of Evaluation Date of Evaluation: 08/16/16 Time of Evaluation: 11:00 - Subjective Subjective: Progress Note for Dr. Gustafson Pt seen and examined at bedside. Pt states she is doing well but still nervous about her ICD placement later today. No acute events overnight as per nursing. Denies CP, SOB, N/V/D. Objective - Vital Signs/Intake and Output Vital Signs (last 24 hours): Temp Pulse Resp BP Pulse Ox 97.2 F L 78 20 114/72 99 08/16/16 08:17 08/16/16 09:47 08/16/16 08:17 08/16/16 08:17 08/16/16 09:47 - Medications Medications: Current Medications Acetaminophen (Tylenol 325mg Tab) 650 mg PO Q6 PRN PRN Reason: Fever >100.4 F Last Admin: 08/13/16 01:23 Dose: 650 mg Alprazolam (Xanax) 0.5 mg PO Q12H PRN PRN Reason: Anxiety Last Admin: 08/16/16 03:09 Dose: 0.5 mg Aspirin (Aspirin Chewable) 81 mg PO DAILY [facility] Last Admin: 08/16/16 10:12 Dose: Not Given Benzocaine/Menthol (Cepacol Sore Throat) 1 hill MT QID [facility] Last Admin: 08/16/16 10:12 Dose: Not Given Carvedilol (Coreg) 6.25 mg PO BID [facility] Last Admin: 08/16/16 09:00 Dose: 6.25 mg Clopidogrel Bisulfate (Plavix) 75 mg PO DAILY [facility] Last Admin: 08/16/16 10:14 Dose: Not Given Famotidine (Pepcid) 20 mg PO DAILY [facility] Last Admin: 08/16/16 10:14 Dose: Not Given Ferrous Sulfate (Feosol Liq) 300 mg PO TID [facility] Last Admin: 08/16/16 10:13 Dose: Not Given Furosemide (Lasix) 40 mg IVP DAILY [facility] Last Admin: 08/16/16 10:13 Dose: Not Given Guaifenesin (Robitussin) 100 mg PO Q4H PRN PRN Reason: Cough Last Admin: 08/14/16 04:26 Dose: 100 mg Piperacillin Sod/Tazobactam Sod (Zosyn 3.375 Gm Iv Premix) 3.375 gm in 50 mls @ 100 mls/hr IVPB Q6H [facility] Last Admin: 08/16/16 10:16 Dose: 100 mls/hr Insulin Human Regular (Novolin R) 0 unit SC ACHS [facility] PRN Reason: Protocol Last Admin: 08/16/16 08:00 Dose: Not Given Magnesium Hydroxide (Milk Of Magnesia) 30 ml PO BID PRN PRN Reason: Constipation Last Admin: 08/02/16 12:13 Dose: 30 ml Rosuvastatin Calcium (Crestor) 5 mg PO HS [facility] Last Admin: 08/15/16 21:33 Dose: 5 mg Saliva Substitute (First Magic Mouthwash) 5 ml PO BID [facility] Last Admin: 08/16/16 09:00 Dose: 5 ml Sennosides (Senokot Tab) 8.6 mg NG DAILY [facility] Last Admin: 08/16/16 10:14 Dose: Not Given Tramadol HCl (Ultram) 50 mg PO Q6H PRN PRN Reason: Pain Last Admin: 08/16/16 02:38 Dose: 50 mg - Labs Labs: 08/15/16 06:19 08/15/16 06:19 PT 13.1 SECONDS (9.7-12.2) H 08/10/16 05:50 INR 1.2 08/10/16 05:50 APTT 36 SECONDS (21-34) H D 08/10/16 05:50 - Constitutional Appears: Well, No Acute Distress - Head Exam Head Exam: ATRAUMATIC, NORMAL INSPECTION, NORMOCEPHALIC - Respiratory Exam Respiratory Exam: Clear to Ausculation Bilateral, NORMAL BREATHING PATTERN. absent: Rales, Rhonchi - Cardiovascular Exam Cardiovascular Exam: RRR, +S1, +S2 - GI/Abdominal Exam GI & Abdominal Exam: Soft, Normal Bowel Sounds. absent: Tenderness - Extremities Exam Extremities Exam: absent: Pedal Edema - Neurological Exam Neurological Exam: Alert, Awake, Oriented x3 - Skin Skin Exam: Intact, Normal Color, Warm Assessment and Plan (1) CHF (congestive heart failure) Assessment & Plan: Pt scheduled for ICD placement later today for Vtach prophylaxis Procedure discussed with patient and daughter Status: Acute
[2016-08-16] MEDS ORDERED: guaiFENesin 100 mg/5 ml Syrup UD PO PRN (21:45)
[2016-08-16] MEDS ORDERED: Magnesium Hydroxide Susp 30 ml UD PO PRN (21:45)
[2016-08-16] MEDS ORDERED: Oxycodone/Acetaminophen 5/325 mg Tab PO ONE (22:30)
[2016-08-17] MEDS: Piperacill/Tazo 3.375gm in Dex 3.375 GM/50 ML BAG IVPB SCH ×4 (05:07→23:57)
[2016-08-17] MEDS: (Novolin R) Insulin Human Regular 100 units/ml vial SC SCH ×4 (08:00→22:20)
--- NOTE | 2016-08-17 08:31 | CP.PCM.PN ---
Subjective - Date & Time of Evaluation Date of Evaluation: 08/17/16 Time of Evaluation: 08:20 Objective - Vital Signs/Intake and Output Vital Signs (last 24 hours): Temp Pulse Resp BP Pulse Ox 97.7 F 74 20 113/67 97 08/17/16 00:00 08/17/16 04:05 08/17/16 00:00 08/17/16 00:00 08/17/16 00:00 - Medications Medications: Current Medications Acetaminophen (Tylenol 325mg Tab) 650 mg PO Q6 PRN PRN Reason: Fever >100.4 F Last Admin: 08/16/16 22:03 Dose: 650 mg Alprazolam (Xanax) 0.5 mg PO Q12H PRN PRN Reason: Anxiety Last Admin: 08/16/16 22:17 Dose: 0.5 mg Aspirin (Aspirin Chewable) 81 mg PO DAILY [facility] Benzocaine/Menthol (Cepacol Sore Throat) 1 hill MT QID [facility] Last Admin: 08/16/16 22:17 Dose: Not Given Carvedilol (Coreg) 6.25 mg PO BID [facility] Clopidogrel Bisulfate (Plavix) 75 mg PO DAILY [facility] Famotidine (Pepcid) 20 mg PO DAILY [facility] Ferrous Sulfate (Feosol Liq) 300 mg PO TID [facility] Furosemide (Lasix) 40 mg IVP DAILY [facility] Guaifenesin (Robitussin) 100 mg PO Q4H PRN PRN Reason: Cough Piperacillin Sod/Tazobactam Sod (Zosyn 3.375 Gm Iv Premix) 3.375 gm in 50 mls @ 100 mls/hr IVPB Q6H [facility] Last Admin: 08/17/16 05:07 Dose: 100 mls/hr Insulin Human Regular (Novolin R) 0 unit SC ACHS [facility] PRN Reason: Protocol Last Admin: 08/16/16 22:24 Dose: Not Given Magnesium Hydroxide (Milk Of Magnesia) 30 ml PO BID PRN PRN Reason: Constipation Rosuvastatin Calcium (Crestor) 5 mg PO HS [facility] Last Admin: 08/16/16 22:03 Dose: 5 mg Saliva Substitute (First Magic Mouthwash) 5 ml PO BID [facility] Last Admin: 08/16/16 20:40 Dose: Not Given Sennosides (Senokot Tab) 8.6 mg NG DAILY [facility] Tramadol HCl (Ultram) 50 mg PO Q6H PRN PRN Reason: Pain Last Admin: 08/17/16 05:49 Dose: 50 mg - Labs Labs: 08/15/16 06:19 08/15/16 06:19 PT 13.1 SECONDS (9.7-12.2) H 08/10/16 05:50 INR 1.2 08/10/16 05:50 APTT 36 SECONDS (21-34) H D 08/10/16 05:50 Assessment and Plan (1) CAD (coronary artery disease) Status: Acute (2) Ventricular tachycardia Status: Resolved (3) Acute on chronic combined systolic and diastolic congestive heart failure Status: Acute
--- NOTE | 2016-08-17 09:18 | CP.PCM.PN ---
<Jaquan Plascencia - Last Filed: 08/17/16 09:13> Subjective - Date & Time of Evaluation Date of Evaluation: 08/17/16 Time of Evaluation: 09:13 - Subjective Subjective: Progress note for Dr. Gustafson Pt seen and examined at bedside. Pt with no acute events overnight. Pt received ICD yesterday. Pt complains of pain at the surgical site. Denies SOB, N/V/D, fever, chills. Objective - Vital Signs/Intake and Output Vital Signs (last 24 hours): Temp Pulse Resp BP Pulse Ox 98.1 F 81 20 123/64 96 08/17/16 08:40 08/17/16 08:40 08/17/16 08:40 08/17/16 08:40 08/17/16 08:40 - Medications Medications: Current Medications Acetaminophen (Tylenol 325mg Tab) 650 mg PO Q6 PRN PRN Reason: Fever >100.4 F Last Admin: 08/16/16 22:03 Dose: 650 mg Alprazolam (Xanax) 0.5 mg PO Q12H PRN PRN Reason: Anxiety Last Admin: 08/16/16 22:17 Dose: 0.5 mg Aspirin (Aspirin Chewable) 81 mg PO DAILY [facility] Benzocaine/Menthol (Cepacol Sore Throat) 1 hill MT QID [facility] Last Admin: 08/16/16 22:17 Dose: Not Given Carvedilol (Coreg) 6.25 mg PO BID [facility] Clopidogrel Bisulfate (Plavix) 75 mg PO DAILY [facility] Famotidine (Pepcid) 20 mg PO DAILY [facility] Ferrous Sulfate (Feosol Liq) 300 mg PO TID [facility] Furosemide (Lasix) 40 mg IVP DAILY [facility] Guaifenesin (Robitussin) 100 mg PO Q4H PRN PRN Reason: Cough Piperacillin Sod/Tazobactam Sod (Zosyn 3.375 Gm Iv Premix) 3.375 gm in 50 mls @ 100 mls/hr IVPB Q6H [facility] Last Admin: 08/17/16 05:07 Dose: 100 mls/hr Insulin Human Regular (Novolin R) 0 unit SC ACHS [facility] PRN Reason: Protocol Last Admin: 08/17/16 08:00 Dose: Not Given Magnesium Hydroxide (Milk Of Magnesia) 30 ml PO BID PRN PRN Reason: Constipation Rosuvastatin Calcium (Crestor) 5 mg PO HS [facility] Last Admin: 08/16/16 22:03 Dose: 5 mg Saliva Substitute (First Magic Mouthwash) 5 ml PO BID [facility] Last Admin: 08/16/16 20:40 Dose: Not Given Sennosides (Senokot Tab) 8.6 mg NG DAILY [facility] Tramadol HCl (Ultram) 50 mg PO Q6H PRN PRN Reason: Pain Last Admin: 08/17/16 05:49 Dose: 50 mg - Labs Labs: 08/15/16 06:19 08/15/16 06:19 PT 13.1 SECONDS (9.7-12.2) H 08/10/16 05:50 INR 1.2 08/10/16 05:50 APTT 36 SECONDS (21-34) H D 08/10/16 05:50 - Constitutional Appears: Well, No Acute Distress - Head Exam Head Exam: ATRAUMATIC, NORMAL INSPECTION, NORMOCEPHALIC - Respiratory Exam Respiratory Exam: Clear to Ausculation Bilateral, NORMAL BREATHING PATTERN. absent: Rales - Cardiovascular Exam Cardiovascular Exam: RRR, +S1, +S2 Additional comments: Surgical site bandaged. Clean, dry, and intact - GI/Abdominal Exam GI & Abdominal Exam: Soft, Normal Bowel Sounds. absent: Tenderness - Extremities Exam Extremities Exam: Normal Inspection. absent: Pedal Edema - Neurological Exam Neurological Exam: Alert, Awake, Oriented x3 - Skin Skin Exam: Intact, Warm Assessment and Plan (1) CHF (congestive heart failure) Assessment & Plan: S/P ICD placement for Vtach prophylaxis Procedure tolerated well with no complications Continue current medical regimen Follow up in office with Dr. Gustafson in 1 month Status: Acute <Iraida Gustafson - Last Filed: 08/17/16 11:11> Objective - Vital Signs/Intake and Output Vital Signs (last 24 hours): Temp Pulse Resp BP Pulse Ox 98.1 F 81 20 123/64 96 08/17/16 08:40 08/17/16 08:40 08/17/16 08:40 08/17/16 08:40 08/17/16 08:40 - Medications Medications: Current Medications Acetaminophen (Tylenol 325mg Tab) 650 mg PO Q6 PRN PRN Reason: Fever >100.4 F Last Admin: 08/16/16 22:03 Dose: 650 mg Alprazolam (Xanax) 0.5 mg PO Q12H PRN PRN Reason: Anxiety Last Admin: 08/16/16 22:17 Dose: 0.5 mg Aspirin (Aspirin Chewable) 81 mg PO DAILY [facility] Benzocaine/Menthol (Cepacol Sore Throat) 1 hill MT QID [facility] Last Admin: 08/16/16 22:17 Dose: Not Given Carvedilol (Coreg) 6.25 mg PO BID [facility] Clopidogrel Bisulfate (Plavix) 75 mg PO DAILY [facility] Famotidine (Pepcid) 20 mg PO DAILY [facility] Ferrous Sulfate (Feosol Liq) 300 mg PO TID [facility] Furosemide (Lasix) 40 mg IVP DAILY [facility] Guaifenesin (Robitussin) 100 mg PO Q4H PRN PRN Reason: Cough Piperacillin Sod/Tazobactam Sod (Zosyn 3.375 Gm Iv Premix) 3.375 gm in 50 mls @ 100 mls/hr IVPB Q6H [facility] Last Admin: 08/17/16 05:07 Dose: 100 mls/hr Insulin Human Regular (Novolin R) 0 unit SC ACHS [facility] PRN Reason: Protocol Last Admin: 08/17/16 08:00 Dose: Not Given Magnesium Hydroxide (Milk Of Magnesia) 30 ml PO BID PRN PRN Reason: Constipation Rosuvastatin Calcium (Crestor) 5 mg PO HS [facility] Last Admin: 08/16/16 22:03 Dose: 5 mg Saliva Substitute (First Magic Mouthwash) 5 ml PO BID [facility] Last Admin: 08/16/16 20:40 Dose: Not Given Sennosides (Senokot Tab) 8.6 mg NG DAILY [facility] Tramadol HCl (Ultram) 50 mg PO Q6H PRN PRN Reason: Pain Last Admin: 08/17/16 05:49 Dose: 50 mg - Labs Labs: 08/15/16 06:19 08/15/16 06:19 PT 13.1 SECONDS (9.7-12.2) H 08/10/16 05:50 INR 1.2 08/10/16 05:50 APTT 36 SECONDS (21-34) H D 08/10/16 05:50 Assessment and Plan (1) CHF (congestive heart failure) Status: Acute Attending/Attestation - Attestation I have personally seen and examined this patient.: Yes I have fully participated in the care of the patient.: Yes I have reviewed all pertinent clinical information, including history, physical exam and plan: Yes Notes (Text): 08/17/16 11:11 follow up in one week for wound check
[2016-08-17] MEDS: Mag&Al/Simet/Diphen/Lido 237 ML KIT PO SCH ×2 (11:00→18:03)
[2016-08-17] MEDS: Ferrous Sulfate 300 mg/5 mL Liq UD PO SCH ×3 (11:00→18:03)
[2016-08-17] MEDS: Benzocaine/Menthol (Cepacol) Lozenge MT SCH ×4 (11:05→22:55)
--- NOTE | 2016-08-17 16:54 | CP.PCM.PN ---
Subjective - Date & Time of Evaluation Date of Evaluation: 08/17/16 Time of Evaluation: 09:40 - Subjective Subjective: PGY2 Medicine Note- Dr. Beck Service Patient seen and examined. Patient s/p ICD yesterday. Patient only complaint of chest pain around site of ICD. Objective - Vital Signs/Intake and Output Vital Signs (last 24 hours): Temp Pulse Resp BP Pulse Ox 97.4 F L 75 20 126/74 100 08/17/16 16:00 08/17/16 16:00 08/17/16 16:00 08/17/16 16:00 08/17/16 16:00 - Medications Medications: Current Medications Acetaminophen (Tylenol 325mg Tab) 650 mg PO Q6 PRN PRN Reason: Fever >100.4 F Last Admin: 08/16/16 22:03 Dose: 650 mg Alprazolam (Xanax) 0.5 mg PO Q12H PRN PRN Reason: Anxiety Last Admin: 08/17/16 15:03 Dose: 0.5 mg Aspirin (Aspirin Chewable) 81 mg PO DAILY [facility] Last Admin: 08/17/16 11:00 Dose: 81 mg Benzocaine/Menthol (Cepacol Sore Throat) 1 hill MT QID [facility] Last Admin: 08/17/16 14:58 Dose: 1 hill Carvedilol (Coreg) 6.25 mg PO BID [facility] Last Admin: 08/17/16 11:00 Dose: Not Given Clopidogrel Bisulfate (Plavix) 75 mg PO DAILY [facility] Last Admin: 08/17/16 10:48 Dose: 75 mg Famotidine (Pepcid) 20 mg PO DAILY [facility] Last Admin: 08/17/16 10:51 Dose: 20 mg Ferrous Sulfate (Feosol Liq) 300 mg PO TID [facility] Last Admin: 08/17/16 14:57 Dose: 300 mg Furosemide (Lasix) 40 mg IVP DAILY [facility] Last Admin: 08/17/16 10:49 Dose: Not Given Guaifenesin (Robitussin) 100 mg PO Q4H PRN PRN Reason: Cough Piperacillin Sod/Tazobactam Sod (Zosyn 3.375 Gm Iv Premix) 3.375 gm in 50 mls @ 100 mls/hr IVPB Q6H [facility] Last Admin: 08/17/16 12:06 Dose: 100 mls/hr Insulin Human Regular (Novolin R) 0 unit SC ACHS [facility] PRN Reason: Protocol Last Admin: 08/17/16 12:00 Dose: Not Given Magnesium Hydroxide (Milk Of Magnesia) 30 ml PO BID PRN PRN Reason: Constipation Rosuvastatin Calcium (Crestor) 5 mg PO HS [facility] Last Admin: 08/16/16 22:03 Dose: 5 mg Saliva Substitute (First Magic Mouthwash) 5 ml PO BID [facility] Last Admin: 08/17/16 11:00 Dose: 5 ml Sennosides (Senokot Tab) 8.6 mg NG DAILY [facility] Last Admin: 08/17/16 11:00 Dose: 8.6 mg Tramadol HCl (Ultram) 50 mg PO Q6H PRN PRN Reason: Pain Last Admin: 08/17/16 12:04 Dose: 50 mg - Labs Labs: 08/15/16 06:19 08/15/16 06:19 PT 13.1 SECONDS (9.7-12.2) H 08/10/16 05:50 INR 1.2 08/10/16 05:50 APTT 36 SECONDS (21-34) H D 08/10/16 05:50 - Constitutional Appears: No Acute Distress - Head Exam Head Exam: ATRAUMATIC, NORMOCEPHALIC - Eye Exam Eye Exam: EOMI - ENT Exam ENT Exam: Mucous Membranes Moist Additional comments: poor dentition - Respiratory Exam Respiratory Exam: Clear to Ausculation Bilateral - Cardiovascular Exam Cardiovascular Exam: +S1, +S2 Additional comments: left chest with bandage in place over ICD site, tenderness to palpation around ICD - GI/Abdominal Exam GI & Abdominal Exam: Soft, Normal Bowel Sounds. absent: Tenderness - Extremities Exam Extremities Exam: absent: Pedal Edema - Neurological Exam Neurological Exam: Alert, Awake - Psychiatric Exam Psychiatric exam: Normal Affect - Skin Skin Exam: Warm Assessment and Plan - Assessment and Plan (Free Text) Assessment: V Tach and CAD 08/17: s/p ICD yesterday, ICD interrogated today, functioning well. Pt to follow up with Dr. Gustafson in one week for wound check 08/16: Patient transferred to [place] for ICD placement. Will return when procedure complete. 08/15: Recent cardiac cath shows severe LV dysfunction with EF of 35%. Per Cardiology, Pt will be transferred for ICD placement later today/tomorrow [place] negative ECHO 08/02/16 - suboptimal study. LVEF approximately 35%, septum appears akinetic and dyskinetic, moderate pulmonary hypertension Interventional cardio consult - Dr. Cunningham - help appreciated EP cardio consult - Dr. Gustafson - help appreciated Cardiac cath 08/11/16 - left main patent, LAD has eccentric calcification of the mid vessel. 80% stenosis of the mid vessel with a hazy opacity in the mid. Left circumflex has 50% stenosis in proximal vessel. RCA has a widely patent stent and eccentric calcification in the distal vessel. LVEF is 35%. Dr. Cunningham plan in his note involve defibrillator placement discussion with family and Dr. Gustafson and possible PCI for Mid LAD. Sore throat Improving Continue Cepacol Respiratory Failure will discontinue antibiotics on discharge 08/16: Patient on Zosyn 3.375 gm IVPB Q6H (started 08/12). Robitussin for cough ( improved) Hypoxemia on admission Patient was intubated and required ventilatory support until 08/05/16 Acute on Chronic systolic heart failure ECHO 08/02/16 - suboptimal study. LVEF approximately 35%, septum appears akinetic and dyskinetic, moderate pulmonary hypertension Echo- 06/25/16- Systolic function is mildly impaired, EF- 40-45%. Akinesis and thinning of basal and mid inferior wall and septal wall segments (both anterior and inferior)indicative of prior MO. LA moderately dilated. RA mildly dilated. AV moderately sclerotic. Mod tricuspid regurg (please see full report) Patient was seen by Dr Kelley on previous visit. He recommended conservative treatment due to patient's DNR/DNI status at the time. However, the patient wishes to be full code on this visit and prior visit. Patient refused cardiac cath yesterday but says she wants it today. Per Dr. Gustafson on last visit, patient is not a candidate for ICD at this time. Patient has indicated that she does not want an ICD. Risks of her low EF and not receiving an ICD was explained in detail last visit. MUGA scan- 06/20/16- EF 32% NEO neg x1 BNP 5210 Continue Coreg 6.25mg PO BID Continue Plavix 75mg PO Daily Continue Lasix 40mg IVP daily Continue Asa 81mg PO Daily Anemia 08/15-08/16: Hgb 9.2. Continue to monitor. Continue Feosol 300mg PO TID f/u stool occult, iron panel, B12/folate (possibly not drawn). Hypotension 08/15-08/16: Stable. Continue to monitor. Prophylactic Measure SCDs Pepcid 20mg PO qd. Disposition dc pending, patient will have homemaker services on discharge All medical management as per Dr. Beck.
[2016-08-18] MEDS: Piperacill/Tazo 3.375gm in Dex 3.375 GM/50 ML BAG IVPB SCH ×2 (05:45→11:36)
[2016-08-18] MEDS: (Novolin R) Insulin Human Regular 100 units/ml vial SC SCH ×2 (07:22→11:37)
[2016-08-18 07:59] VITALS: BP 126/77; RESP 18; TEMP 98; O2SAT 97
--- NOTE | 2016-08-18 09:18 | CP.PCM.PN ---
Subjective - Date & Time of Evaluation Date of Evaluation: 08/18/16 Time of Evaluation: 09:13 - Subjective Subjective: Progress Note for Dr. Gustafson Pt seen and examined at bedside. Pt with short episode of Vtach overnight as per nursing. Pt is s/p ICD placement 2 days ago. Pt is complaining of mild chest pain at surgical site. Denies SOB, N/V/D, fevers, chills. Objective - Vital Signs/Intake and Output Vital Signs (last 24 hours): Temp Pulse Resp BP Pulse Ox 98 F 83 18 126/77 97 08/18/16 07:00 08/18/16 07:00 08/18/16 07:00 08/18/16 07:00 08/18/16 07:00 - Medications Medications: Current Medications Acetaminophen (Tylenol 325mg Tab) 650 mg PO Q6 PRN PRN Reason: Fever >100.4 F Last Admin: 08/16/16 22:03 Dose: 650 mg Alprazolam (Xanax) 0.5 mg PO Q12H PRN PRN Reason: Anxiety Last Admin: 08/18/16 08:31 Dose: 0.5 mg Aspirin (Aspirin Chewable) 81 mg PO DAILY [facility] Last Admin: 08/17/16 11:00 Dose: 81 mg Benzocaine/Menthol (Cepacol Sore Throat) 1 hill MT QID [facility] Last Admin: 08/17/16 22:55 Dose: 1 hill Carvedilol (Coreg) 6.25 mg PO BID [facility] Last Admin: 08/17/16 18:03 Dose: 6.25 mg Clopidogrel Bisulfate (Plavix) 75 mg PO DAILY [facility] Last Admin: 08/17/16 10:48 Dose: 75 mg Famotidine (Pepcid) 20 mg PO DAILY [facility] Last Admin: 08/17/16 10:51 Dose: 20 mg Ferrous Sulfate (Feosol Liq) 300 mg PO TID [facility] Last Admin: 08/17/16 18:03 Dose: 300 mg Furosemide (Lasix) 40 mg IVP DAILY [facility] Last Admin: 08/17/16 10:49 Dose: Not Given Guaifenesin (Robitussin) 100 mg PO Q4H PRN PRN Reason: Cough Piperacillin Sod/Tazobactam Sod (Zosyn 3.375 Gm Iv Premix) 3.375 gm in 50 mls @ 100 mls/hr IVPB Q6H [facility] Last Admin: 08/18/16 05:45 Dose: 100 mls/hr Insulin Human Regular (Novolin R) 0 unit SC ACHS [facility] PRN Reason: Protocol Last Admin: 08/18/16 07:22 Dose: Not Given Magnesium Hydroxide (Milk Of Magnesia) 30 ml PO BID PRN PRN Reason: Constipation Rosuvastatin Calcium (Crestor) 5 mg PO HS [facility] Last Admin: 08/17/16 22:55 Dose: 5 mg Saliva Substitute (First Magic Mouthwash) 5 ml PO BID [facility] Last Admin: 08/17/16 18:03 Dose: 5 ml Sennosides (Senokot Tab) 8.6 mg NG DAILY [facility] Last Admin: 08/17/16 11:00 Dose: 8.6 mg Tramadol HCl (Ultram) 50 mg PO Q6H PRN PRN Reason: Pain Last Admin: 08/18/16 06:18 Dose: 50 mg - Labs Labs: 08/15/16 06:19 08/15/16 06:19 PT 13.1 SECONDS (9.7-12.2) H 08/10/16 05:50 INR 1.2 08/10/16 05:50 APTT 36 SECONDS (21-34) H D 08/10/16 05:50 - Constitutional Appears: Well, No Acute Distress - Head Exam Head Exam: ATRAUMATIC, NORMAL INSPECTION, NORMOCEPHALIC - Respiratory Exam Respiratory Exam: Clear to Ausculation Bilateral, NORMAL BREATHING PATTERN. absent: Rhonchi - Cardiovascular Exam Cardiovascular Exam: RRR, +S1, +S2 Additional comments: Surgical site bandaged. Clean, dry, and intact. - GI/Abdominal Exam GI & Abdominal Exam: Soft, Normal Bowel Sounds. absent: Tenderness - Extremities Exam Extremities Exam: absent: Calf Tenderness, Pedal Edema - Neurological Exam Neurological Exam: Alert, Awake, Oriented x3 - Skin Skin Exam: Intact, Normal Color, Warm Assessment and Plan (1) CHF (congestive heart failure) Assessment & Plan: S/P ICD placement Pt will follow up in 1 week for wound check Status: Acute
[2016-08-18] MEDS: Mag&Al/Simet/Diphen/Lido 237 ML KIT PO SCH (09:25)
[2016-08-18] MEDS: Benzocaine/Menthol (Cepacol) Lozenge MT SCH (09:25)
[2016-08-18] MEDS: Ferrous Sulfate 300 mg/5 mL Liq UD PO SCH (09:25)
[2016-08-18 14:23] VITALS: PULSE 89
--- NOTE | 2016-08-18 14:55 | CP.PCM.PN ---
Subjective - Date & Time of Evaluation Date of Evaluation: 08/18/16 Time of Evaluation: 09:45 - Subjective Subjective: PGY2 Medicine Note- Dr. Beck's service: Patient seen and examined. Patient eager to go home today. Patient only with complaint of tenderness around ICD site. Objective - Vital Signs/Intake and Output Vital Signs (last 24 hours): Temp Pulse Resp BP Pulse Ox 98 F 89 18 126/77 97 08/18/16 07:00 08/18/16 08:00 08/18/16 07:00 08/18/16 09:26 08/18/16 07:00 - Labs Labs: 08/15/16 06:19 08/15/16 06:19 PT 13.1 SECONDS (9.7-12.2) H 08/10/16 05:50 INR 1.2 08/10/16 05:50 APTT 36 SECONDS (21-34) H D 08/10/16 05:50 - Constitutional Appears: Non-toxic, No Acute Distress - Head Exam Head Exam: ATRAUMATIC, NORMOCEPHALIC - Eye Exam Eye Exam: EOMI - ENT Exam ENT Exam: Mucous Membranes Moist Additional comments: poor dentition - Respiratory Exam Respiratory Exam: Clear to Ausculation Bilateral, NORMAL BREATHING PATTERN - Cardiovascular Exam Cardiovascular Exam: +S1, +S2 Additional comments: ICD left side chest, mild tenderness of ICD site - GI/Abdominal Exam GI & Abdominal Exam: Soft, Normal Bowel Sounds. absent: Tenderness - Extremities Exam Extremities Exam: absent: Pedal Edema Additional comments: left arm mid line removed, intact - Neurological Exam Neurological Exam: Alert, Awake - Psychiatric Exam Psychiatric exam: Normal Affect, Normal Mood - Skin Skin Exam: Dry, Warm Assessment and Plan - Assessment and Plan (Free Text) Assessment: V Tach and CAD 08/18: patient to have wound check [address] Gustafson 08/17: s/p ICD yesterday, ICD interrogated today, functioning well. Pt to follow up with Dr. Gustafson in one week for wound check 08/16: Patient transferred to [place] for ICD placement. Will return when procedure complete. 08/15: Recent cardiac cath shows severe LV dysfunction with EF of 35%. Per Cardiology, Pt will be transferred for ICD placement later today/tomorrow DIVYAIs negative ECHO 08/02/16 - suboptimal study. LVEF approximately 35%, septum appears akinetic and dyskinetic, moderate pulmonary hypertension Interventional cardio consult - Dr. Cunningham - help appreciated EP cardio consult - Dr. Gustafson - help appreciated Cardiac cath 08/11/16 - left main patent, LAD has eccentric calcification of the mid vessel. 80% stenosis of the mid vessel with a hazy opacity in the mid. Left circumflex has 50% stenosis in proximal vessel. RCA has a widely patent stent and eccentric calcification in the distal vessel. LVEF is 35%. Dr. Cunningham plan in his note involve defibrillator placement discussion with family and Dr. Gustafson and possible PCI for Mid LAD. Sore throat Improving Continue Cepacol Respiratory Failure will discontinue antibiotics on discharge 08/16: Patient on Zosyn 3.375 gm IVPB Q6H (started 08/12). Robitussin for cough ( improved) Hypoxemia on admission Patient was intubated and required ventilatory support until 08/05/16 Acute on Chronic systolic heart failure ECHO 08/02/16 - suboptimal study. LVEF approximately 35%, septum appears akinetic and dyskinetic, moderate pulmonary hypertension Echo- 06/25/16- Systolic function is mildly impaired, EF- 40-45%. Akinesis and thinning of basal and mid inferior wall and septal wall segments (both anterior and inferior)indicative of prior [place]. LA moderately dilated. RA mildly dilated. AV moderately sclerotic. Mod tricuspid regurg (please see full report) Patient was seen by Dr Kelley on previous visit. He recommended conservative treatment due to patient's DNR/DNI status at the time. However, the patient wishes to be full code on this visit and prior visit. Patient refused cardiac cath yesterday but says she wants it today. Per Dr. Gustafson on last visit, patient is not a candidate for ICD at this time. Patient has indicated that she does not want an ICD. Risks of her low EF and not receiving an ICD was explained in detail last visit. MUGA scan- 06/20/16- EF 32% NEO neg x1 BNP 5210 Continue Coreg 6.25mg PO BID Continue Plavix 75mg PO Daily Continue Lasix 80mg PO daily Continue Asa 81mg PO Daily Anemia 08/15-08/16: Hgb 9.2. Continue to monitor. Continue ferrous sulfate 325mg BID Hypotension 08/15-08/16: Stable. Continue to monitor. Prophylactic Measure SCDs Pepcid 20mg PO qd. All medical management as per Dr. Beck. Patient is stable for discharge home per Dr. Beck. Patient is to have home PT and homemaker services. Patient is to follow up with power tool repairer Dr. Gustafson in one week for a wound check of ICD. Patient is to follow up with her PMD within one week. Patient is to return to the ED if her symptoms reoccur or worsen.
--- NOTE | 2016-08-18 17:51 | PCM.HF ---
Heart Failure Core Measure - Heart Failure Ejection Fraction: Less Than 40 % (EF 35%) KANDIS Inhibitor Prescribed: No Contraindication/Reason for not providing: not rx by md Beta-Wesley Prescribed: Carvedilol Angiotensin II Receptor Wesley Prescribed: No Contraindication/Reason for not providing: not rx by md AnticoagulationTherapy for Atrial Fibrillation/Atrialflutter: No Contraindication/Reason for not providing: no afib Aldosterone Antagonist Prescribed: No Contraindication/Reason for not providing: RECENT ICD Hydralazine Nitrate Prescribed: No Contraindication/Reason for not providing: RECENT ICD Implantable Cardioverter Defibrillator Therapy: Yes Cardiac Resynchronization Therapy Prescribed: No Contraindication/Reason for not providing: ICD - Follow up Will be discharged to: Home Follow Up Date (must be within 7 days from discharge): 08/19/16 Follow Up Time: 09:00
--- NOTE | 2016-08-19 10:40 | DS ---
The patient admitted to the hospital complaining of shortness of breath, pulmonary edema. The patien t got treatment, respiratory support. The patient had AICD placed, seen by dry molder. The patien t being discharged to follow as outpatient. DIAGNOSIS: Pulmonary edema, congestive heart failure, coronary artery disease. Gisselle Vogel MD cc: [id number] TT: 08/18/2016 11:23:43 tn
== END 2016-08-18 13:31 | disposition home or self-care (01) | DRG 286 ==
LOC: C.ER 03:57 → C.9I 06:05 → C.6T 08-13 01:07 → UNDODISIN 08-16 11:11 → C.6T 08-16 14:37
PROVIDERS: ADMIT Internal Medicine Pulmonary Disease; ATTEND Internal Medicine Pulmonary Disease
PROC: 5A1945Z Respiratory Ventilation, 24-96 Consecutive Hours (ICD-10-PCS; principal; 2016-08-02)
PROC: 0BH17EZ Insertion of Endotracheal Airway into Trachea, Via Natural or Artificial Opening (ICD-10-PCS; 2016-08-02)
PROC: 5A2204Z Restoration of Cardiac Rhythm, Single (ICD-10-PCS; 2016-08-02)
PROC: 05HM33Z Insertion of Infusion Device into Right Internal Jugular Vein, Percutaneous Approach (ICD-10-PCS; 2016-08-03)
PROC: 3E0G76Z Introduction of Nutritional Substance into Upper GI, Via Natural or Artificial Opening (ICD-10-PCS; 2016-08-03)
PROC: 4A023N7 Measurement of Cardiac Sampling and Pressure, Left Heart, Percutaneous Approach (ICD-10-PCS; 2016-08-11)
PROC: B2151ZZ Fluoroscopy of Left Heart using Low Osmolar Contrast (ICD-10-PCS; 2016-08-11)
PROC: B2111ZZ Fluoroscopy of Multiple Coronary Arteries using Low Osmolar Contrast (ICD-10-PCS; 2016-08-11)
PROC: 0CJS8ZZ Inspection of Larynx, Via Natural or Artificial Opening Endoscopic (ICD-10-PCS; 2016-08-12)
DX: I11.0 Hypertensive heart disease with heart failure (principal); J96.01 Acute respiratory failure with hypoxia; I50.43 Acute on chronic combined systolic (congestive) and diastolic (congestive) heart failure; I47.2 Ventricular tachycardia; I46.9 Cardiac arrest, cause unspecified; J96.02 Acute respiratory failure with hypercapnia; J69.0 Pneumonitis due to inhalation of food and vomit; I25.10 Atherosclerotic heart disease of native coronary artery without angina pectoris; E87.3 Alkalosis; I42.0 Dilated cardiomyopathy; R13.10 Dysphagia, unspecified; I08.1 Rheumatic disorders of both mitral and tricuspid valves; I25.5 Ischemic cardiomyopathy; I27.2 Other secondary pulmonary hypertension; I45.19 Other right bundle-branch block; E11.9 Type 2 diabetes mellitus without complications; I48.91 Unspecified atrial fibrillation; M06.9 Rheumatoid arthritis, unspecified; M81.0 Age-related osteoporosis without current pathological fracture; M19.90 Unspecified osteoarthritis, unspecified site; J45.909 Unspecified asthma, uncomplicated; F03.90 Unspecified dementia, unspecified severity, without behavioral disturbance, psychotic disturbance, mood disturbance, and anxiety; E78.00 Pure hypercholesterolemia, unspecified; I25.2 Old myocardial infarction; Z79.82 Long term (current) use of aspirin; Z87.01 Personal history of pneumonia (recurrent); Z90.49 Acquired absence of other specified parts of digestive tract; Z95.5 Presence of coronary angioplasty implant and graft

== ENCOUNTER 2016-08-22 06:30 | Inpatient (IN) | payer MEDICARE, MEDICAID ==
[2016-08-22 06:31] VITALS: BMI 18.1
[2016-08-22] MEDS ORDERED: Nitroglycerin 2% Ointment Foilpak UD TOP STA (06:43)
[2016-08-22] MEDS ORDERED: Morphine 4 MG/ML VIAL IV ONE (06:44)
--- NOTE | 2016-08-22 06:48 | C.PDOC ---
History Of Present Illness <Lenard Correia R - Last Filed: 08/22/16 06:50> <Gumaro Jensen Jarocho - Last Filed: 08/22/16 12:09> A 81 y/o c/o chest pain and SOB that began tonight. Pt was brought in by ALS with BiPAP in place and was given Lasix and Nitroglycerin on route to the ER. Pt denies fever, chills, diaphoresis, lower extremity pain, palpitations, dizziness, lightheadedness, or any other complaints. (Lenard Correia) History Per: Patient History/Exam Limitations: no limitations Onset/Duration Of Symptoms: Hrs Current Symptoms Are (Timing): Still Present Quality: "Pain" Severity: Mild Associated Symptoms: denies: Fever, Chills, Sweating, Heart Racing, Ankle/Leg Swelling, Dizziness, Light-headedness Recent travel outside of the [place]: No Additional History Per: Patient <Bry Correiael R - Last Filed: 08/22/16 06:50> <Gumaro Jensen - Last Filed: 08/22/16 12:09> Time Seen by Provider: 08/22/16 06:41 Chief Complaint (Nursing): Respiratory Distress Past Medical History Reviewed: Historical Data, Nursing Documentation, Vital Signs - Medical History PMH: Anxiety, Arthritis, Asthma, Atrial Fibrillation, CHF, COPD, Dementia, Diabetes, Gall Bladder Disease, HTN, Hypercholesterolemia, Osteoporosis, Pneumonia (08/2015), Rheumatoid Arthritis Denies: Anemia, Bipolar Disorder, Depression, HIV, Hyperthyroidism, Hypothyroidism, Kidney Stones, Post Traumatic Stress Disorder, Chronic Kidney Disease, Schizophrenia, Sickle Cell Disease, Sexually Transmitted Disease Surgical History: Cholecystectomy, Coronary Stent (proximal RCA stent) Family History: States: Unknown Family Hx - Social History Hx Tobacco Use: No Hx Alcohol Use: No Hx Substance Use: No - Immunization History Hx Tetanus Toxoid Vaccination: No Hx Influenza Vaccination: No Hx Pneumococcal Vaccination: No <MasoodLenard R - Last Filed: 08/22/16 06:50> Review Of Systems Except As Marked, All Systems Reviewed And Found Negative. Constitutional: Negative for: Fever, Chills, Sweats Cardiovascular: Positive for: Chest Pain. Negative for: Palpitations, Light Headedness Respiratory: Positive for: Shortness of Breath Musculoskeletal: Negative for: Leg Pain, Foot Pain Neurological: Negative for: Dizziness <Correia,Lenard R - Last Filed: 08/22/16 06:50> Physical Exam - Physical Exam Appears: Non-toxic, No Acute Distress Skin: Warm, Dry Head: Atraumatic, Normacephalic Eye(s): bilateral: Normal Inspection Oral Mucosa: Moist Throat: Normal, No Exudate Neck: Other (JVD) Chest: Symmetrical Cardiovascular: Rhythm Regular Respiratory: No Accessory Muscle Use, No Rales, Rhonchi (Bilateral rhonchi), No Wheezing Gastrointestinal/Abdominal: Soft, No Tenderness, No Guarding, No Rebound Back: Normal Inspection, No CVA Tenderness Extremity: Normal ROM, No Pedal Edema, Capillary Refill (<2secs), No Deformity, No Swelling Extremity: Bilateral: Normal Color And Temperature Neurological/Psych: Oriented x3, Normal Speech, Normal Cognition, Other (No focal deficit) <Bry Correiael R - Last Filed: 08/22/16 06:50> ED Course And Treatment O2 Sat by Pulse Oximetry: 100 (RA) Pulse Ox Interpretation: Normal <MasoodLenard R - Last Filed: 08/22/16 06:50> - Laboratory Results Result Diagrams: 08/22/16 07:00 08/22/16 07:00 <Gumaro Jensen - Last Filed: 08/22/16 12:09> Medical Decision Making <Lenard Correia R - Last Filed: 08/22/16 06:50> <Gumaro Jensen - Last Filed: 08/22/16 12:09> Medical Decision Making: Impression: A 81 y/o c/o chest pain and SOB that began tonight. Plans: EKG Blood labs CXR Morphine IV fluids BIPAP procedure Reassess (Lenard Correia R) ED OBSERVATION <Bry Correiael R - Last Filed: 08/22/16 06:50> Date of observation admission: 08/22/16 Time of observation admission: 07:30 <Gumaro Jensen - Last Filed: 08/22/16 12:09> - Observation admission statement Patient is being placed in observation because:: dyspnea (Gumaro Jensen) - Goals of Observation Goals of observation are:: CT chest (Gumaro Jensen) - Progress Note Progress Note: 730 Patient signed out to me at change of shift pending labs. 81 y/o F p/w acute shortness of breath since last night. Treated with BiPap, Lasix. Patient with history of CHF, states this dyspnea does not feel like her COPD. D dimer positive. Will order CTA. 930 Labs unremarkable other than hypokalemia. 1023 Accession No. : [id number] Patient Name / ID : AINSLEY REHMAN / [id number] Exam Date : 08/22/2016 09:42:50 ( Approved ) Study Comment : Sex / Age : F / 81Y Creator : Liam Fournier MD Dictator : Liam Fournier MD Java Jsf Developer : Box Fabricator : Liam Fournier MD Approver2 : Report Date : 08/22/2016 10:23:45 My Comment : PROCEDURE: CT Chest with contrast (Pulmonary Angiogram) HISTORY: dyspnea, r/o PE COMPARISON: None available. TECHNIQUE: Axial computed tomography images were obtained of the chest in the pulmonary arterial phase of enhancement. Coronal and sagittal reformatted images were created and reviewed. Intravenous contrast dose: 100 cc Visipaque 320 Radiation dose: Total exam DLP = 136.25 mGy-cm. This CT exam was performed using one or more of the following dose reduction techniques: Automated exposure control, adjustment of the mA and/or kV according to patient size, and/or use of iterative reconstruction technique. FINDINGS: PULMONARY ARTERIES: The visualized pulmonary trunk, right and left main, lobar, segmental and proximal subsegmental branches of the pulmonary arteries appear relatively well opacified with no definitive filling defects seen to suggest acute central pulmonary embolus. The pulmonary trunk measures approximately 2.45 cm. AORTA: The ascending thoracic aorta measures approximately 3.25 cm and descending thoracic aorta measures approximately 2.67 cm. No evidence of aortic dissection so far as can be seen however if the aorta is left right not well opacified as this study was dedicated to evaluate pulmonary arteries. LUNGS: Small bilateral effusions and mild bibasilar atelectasis right greater than left. There are also atelectatic and or scarring changes in the lingular region as well. There also appears to be biapical pleural thickening on and some adjacent parenchymal scarring. . There is a small approximately 5.7 mm anterior aspect left lung apex which in part is of subpleural location and a 4 point 6 mm nodule right lung apex. Vague nodular opacities and also present in the lung apices as well. Followup CT scan in 6 months could be performed to assess for stability PLEURAL SPACES: Small bilateral effusions and minor bibasilar atelectasis right greater than left. Additionally, there is mild biapical pleural thickening HEART: Heart is enlarged. No significant pericardial effusion. Mild left ventricular hypertrophy. . LYMPH NODES: No significant at mediastinal or hilar adenopathy. BONES, CHEST WALL: Multilevel degenerative spondylosis of the thoracic spine with moderate to fairly significant levoscoliosis centered at approximately T9-T10 level. Scroll OTHER FINDINGS: small hiatal hernia. IMPRESSION: No evidence of acute central pulmonary embolus. Small bilateral effusions and bibasilar atelectasis right greater than left. Mild biapical pleural thickening. There also small nodular densities in both lung apices. Followup CT scan in 6 months recommended to assess the stability and exclude the possibility of underlying malignancy. Patient with CHF exacerbation, no PE. Potassium supplementation initiated. Will admit. (Gumaro Jensen) Disposition Counseled Patient/Family Regarding: Diagnosis - Disposition Disposition Time: 07:00 - POA Present On Arrival: None <Lenard Correia - Last Filed: 08/22/16 06:50> <Gumaro Jensen - Last Filed: 08/22/16 12:09> - Disposition Disposition: HOSPITALIZED Condition: GUARDED - Clinical Impression Clinical Impression: Pulmonary edema, CHF (congestive heart failure) - Scribe Statement The provider has reviewed the documentation as recorded by the Scribe <Lenard Correia - Last Filed: 08/22/16 06:50> <Gumaro Jensen - Last Filed: 08/22/16 12:09> - Scribe Statement Eran cadena All medical record entries made by the Scribe were at my direction and personally dictated by me. I have reviewed the chart and agree that the record accurately reflects my personal performance of the history, physical exam, medical decision making, and the department course for this patient. I have also personally directed, reviewed, and agree with the discharge instructions and disposition. (Lenard Correia) Physician Patient Turnover Patient Signed Over To: Gumaro Jensen Handoff Comments: Patient clinically in pulm. edema, presently pending blood work and x-ray. Tolerating and stable with Bi-pap <Lenard Correia - Last Filed: 08/22/16 06:50>
[2016-08-22] MEDS ORDERED: Nitroglycerin 2% Ointment Foilpak UD TOP ONE (07:10)
[2016-08-22 07:20] LABS: BASO # 0.1 K/uL (0.0-0.2); BASO % 1.9 % (0.0-2.0); EOS # 0.1 K/uL (0.0-0.7); HEMATOCRIT 30.2 % (34.0-47.0); LYMPH # 1.2 K/uL (1.0-4.3); LYMPH % 17.4 % (20.0-40.0); MEAN CELL VOLUME 72.7 fL (81.0-99.0); MEAN CORPUSCULAR HEMOGLOBIN 23.2 pg (27.0-31.0); MEAN CORPUSCULAR HGB CONC 31.9 g/dL (33.0-37.0); MEAN PLATELET VOLUME 9.7 fL (7.2-11.7); MONO # 0.6 K/uL (0.0-0.8); MONO % 9.3 % (0.0-10.0); RED CELL DISTRIBUTION WIDTH 19.6 % (11.5-14.5)
[2016-08-22 07:32] LABS: CHLORIDE 98 mmol/L (98-107); SODIUM 135 mmol/L (132-148)
[2016-08-22 07:34] LABS: GFR AFRICAN-AMERICAN > 60
[2016-08-22 07:35] LABS: ALB/GLOB RATIO 0.9 (1.0-2.1); ALKALINE PHOSPHATASE 94 U/L (38-126); ALT/SGPT 15 U/L (9-52); AST/SGOT 21 U/L (14-36); BILIRUBIN,TOTAL 1.1 mg/dL (0.2-1.3); BLOOD UREA NITROGEN 14 mg/dL (7-17); CALCIUM 8.9 mg/dl (8.6-10.4); CARBON DIOXIDE 21 mmol/L (22-30); GLUCOSE,RANDOM 194 mg/dL (65-105)
[2016-08-22 08:12] LABS: POTASSIUM 2.9 mmol/L (3.6-5.2)
--- NOTE | 2016-08-22 08:22 | RAD ---
PROCEDURE: CHEST RADIOGRAPH, 1 VIEW HISTORY: Shortness of breath COMPARISON: 08/05/2016 FINDINGS: LUNGS: Biapical pleural thickening with upper lobe granulomatous changes. Diffuse increased interstitial lung markings. Scattered nodularity throughout both lungs. Patchy increased markings at the lung bases. Linear opacity at the right lung base laterally may represent Mach artifact. PLEURA: No pneumothorax or pleural fluid seen. CARDIOVASCULAR: Mild cardiomegaly. Left-sided pacemaker. OSSEOUS STRUCTURES: Degenerative changes in the spine and shoulders. VISUALIZED UPPER ABDOMEN: Normal. OTHER FINDINGS: None. IMPRESSION: Biapical pleural thickening with upper lobe granulomatous changes. Diffuse increased interstitial lung markings. Scattered nodularity throughout both lungs. Patchy increased markings at the lung bases. Linear opacity at the right lung base laterally may represent Mach artifact.
[2016-08-22] MEDS ORDERED: Iodixanol 320 mg/ml 150 ml Bottle IV ONE (09:15)
--- NOTE | 2016-08-22 10:25 | CT ---
PROCEDURE: CT Chest with contrast (Pulmonary Angiogram) HISTORY: dyspnea, r/o PE COMPARISON: None available. TECHNIQUE: Axial computed tomography images were obtained of the chest in the pulmonary arterial phase of enhancement. Coronal and sagittal reformatted images were created and reviewed. Intravenous contrast dose: 100 cc Visipaque 320 Radiation dose: Total exam DLP = 136.25 mGy-cm. This CT exam was performed using one or more of the following dose reduction techniques: Automated exposure control, adjustment of the mA and/or kV according to patient size, and/or use of iterative reconstruction technique. FINDINGS: PULMONARY ARTERIES: The visualized pulmonary trunk, right and left main, lobar, segmental and proximal subsegmental branches of the pulmonary arteries appear relatively well opacified with no definitive filling defects seen to suggest acute central pulmonary embolus. The pulmonary trunk measures approximately 2.45 cm. AORTA: The ascending thoracic aorta measures approximately 3.25 cm and descending thoracic aorta measures approximately 2.67 cm. No evidence of aortic dissection so far as can be seen however if the aorta is left right not well opacified as this study was dedicated to evaluate pulmonary arteries. LUNGS: Small bilateral effusions and mild bibasilar atelectasis right greater than left. There are also atelectatic and or scarring changes in the lingular region as well. There also appears to be biapical pleural thickening on and some adjacent parenchymal scarring. . There is a small approximately 5.7 mm anterior aspect left lung apex which in part is of subpleural location and a 4 point 6 mm nodule right lung apex. Vague nodular opacities and also present in the lung apices as well. Followup CT scan in 6 months could be performed to assess for stability PLEURAL SPACES: Small bilateral effusions and minor bibasilar atelectasis right greater than left. Additionally, there is mild biapical pleural thickening HEART: Heart is enlarged. No significant pericardial effusion. Mild left ventricular hypertrophy. . LYMPH NODES: No significant at mediastinal or hilar adenopathy. BONES, CHEST WALL: Multilevel degenerative spondylosis of the thoracic spine with moderate to fairly significant levoscoliosis centered at approximately T9-T10 level. Scroll OTHER FINDINGS: small hiatal hernia. IMPRESSION: No evidence of acute central pulmonary embolus. Small bilateral effusions and bibasilar atelectasis right greater than left. Mild biapical pleural thickening. There also small nodular densities in both lung apices. Followup CT scan in 6 months recommended to assess the stability and exclude the possibility of underlying malignancy.
[2016-08-22] MEDS ORDERED: Potassium Chloride 20 mEq ER Tab PO STA (10:42)
[2016-08-22] MEDS ORDERED: Potassium Chloride 20 mEq ER Tab PO ONE (10:53)
--- NOTE | 2016-08-22 11:28 | CP.PCM.PN ---
Subjective - Date & Time of Evaluation Date of Evaluation: 08/22/16 Time of Evaluation: 11:24 - Subjective Subjective: CC: SOB HPI: This is an 81 year old female with PMHx significant for A.fib, HTN, DM, COPD, CHF, and RA - presenting c/o SOB since last night. She describes the SOB as mild last night, but worsened this morning, prompting her daughter to call for an ambulance. Patient was brought to the ED via ACLS, was found hypoxic at 88%, and received Lasix and Nitro in route to the ED. Patient was discharged last week s/p ICD placement on 08/16/[address] Gustafson. On that same admission, patient was intubated in the ED with time spent in the ICU. Previously, the patient has multiple admissions to the hospital for CHF exacerbations, pulmonary edema, and pneumonia. Currently denies chest pain, SOB , or any additional complaints. She is actively requesting food and xanax. Patient is a poor historian, and is currently only AAOx1 (oriented to herself, not place or time). ED course: KCl 10meq, Kdur40, Morphine 2mg, Nitro bid 2%, EKG LBBB nsr w/PVCs + Supraventricular complexes, CT chest negative for PE. Past medical hx: Afib, HTN, DM, COPD, CHF, RA Past Surgical Hx: ICD placed 08/16/16; Cholecystectomy; Coronary stent (proximal RCA) placed in June 2016 Allergies: moxifloxacin Family hx: psychiatric : daughter has bipolar disorder Medical: unknown Objective - Vital Signs/Intake and Output Vital Signs (last 24 hours): Temp Pulse Resp BP Pulse Ox 74 18 130/64 100 08/22/16 11:10 08/22/16 11:10 08/22/16 11:10 08/22/16 11:10 - Medications Medications: Current Medications Potassium Chloride (Potassium Chloride 10 Meq/100 Ml) 10 meq in 100 mls @ 100 mls/hr IVPB ONCE ONE Stop: 08/22/16 11:42 Last Admin: 08/22/16 10:59 Dose: 100 mls/hr - Additional Findings Additional findings: - Constitutional Appears: Non-toxic, No Acute Distress - Head Exam Head Exam: ATRAUMATIC, NORMOCEPHALIC - Eye Exam Eye Exam: EOMI - ENT Exam ENT Exam: Mucous Membranes Moist Additional comments: poor dentition - Respiratory Exam Respiratory Exam: Rhonchi (at Rt lung base, mild), NORMAL BREATHING PATTERN - Cardiovascular Exam Cardiovascular Exam: +S1, +S2 Additional comments: ICD left side chest, site is [facility] - GI/Abdominal Exam GI & Abdominal Exam: Soft, Normal Bowel Sounds. absent: Tenderness - Extremities Exam Extremities Exam: absent: Pedal Edema - Neurological Exam Neurological Exam: Alert, Awake (Oriented to self, not place or time). - Psychiatric Exam Psychiatric exam: Normal Affect, Normal Mood - Skin Skin Exam: Dry, Warm Assessment and Plan - Assessment and Plan (Free Text) Assessment: Respiratory Failure Hypoxemia on admission Patient was intubated and required ventilatory support on prior admission until (08/05/16) BIPAP Continue cardiac medications below. Acute on Chronic systolic heart failure -prior admissin: ECHO 08/02/16 - suboptimal study. LVEF approximately 35%, septum appears akinetic and dyskinetic, moderate pulmonary hypertension -Echo- 06/25/16- Systolic function is mildly impaired, EF- 40-45%. Akinesis and thinning of basal and mid inferior wall and septal wall segments (both anterior and inferior)indicative of prior [place]. LA moderately dilated. RA mildly dilated. AV moderately sclerotic. Mod tricuspid regurg (please see full report) -ICD placed by Dr. Gustafson 08/16/16. Site is [facility]. -NEO neg x1 -BNP 3540 -f/u NEO + EKG 1400, 2100 -Continue Coreg 6.25mg PO BID -Continue Plavix 75mg PO Daily -Lasix 40mg IVP [id number] -Continue Asa 81mg PO Daily CAD -s/p ICD 08/16, ICD interrogated, functioning well. Pt was to follow up with Dr. Gustafson this week for wound check -consult cardio, Dr. Cunningham, f/u recs -recent cardiac cath shows severe LV dysfunction with EF of 35%. -f/u NEO + EKG 1400, 2100 -ECHO 08/02/16 - suboptimal study. LVEF approximately 35%, septum appears akinetic and dyskinetic, moderate pulmonary hypertension -Cardiac cath 08/11/16 - left main patent, LAD has eccentric calcification of the mid vessel. 80% stenosis of the mid vessel with a hazy opacity in the mid. Left circumflex has 50% stenosis in proximal vessel. RCA has a widely patent stent and eccentric calcification in the distal vessel. LVEF is 35%. -Dr. Cunningham plan in prior note, possible PCI for Mid LAD, however patient refused at that time. Hx Vtach - vtach last week while inpatient. - currently stable Anemia Hgb 9.7. Continue to monitor. -Continue ferrous sulfate 325mg PO BID Anxiety -Xanax 0.5mg PO Q12H PRN Hx Hypotension Currently stable. Continue to monitor. Hx Diabetes -Novolog ISS - low dose -accuchecks achs Prophylactic Measure -SCDs -Pepcid 20mg PO qd. -Rosuvastatin Calcium (Crestor) 5 mg PO HS BLAKE -heparin 5k sc Q12H All medical management as per Dr. Beck.
[2016-08-22] MEDS ORDERED: Naproxen 550 mg Tab PO ONE (16:14)
[2016-08-22] MEDS ORDERED: Nitroglycerin 50mg in D5W 50 MG/250 ML BOTTLE IV ONE (16:52)
--- NOTE | 2016-08-22 16:57 | CP.PCM.CON ---
History of Present Illness - History of Present Illness History of Present Illness: ICU Consult Note Reason for consult: increasing SOB HPI: 81 year old female with PMHx significant for A.fib, HTN, DM, COPD, CHF, and RA - presenting c/o SOB since last night. She describes the SOB as mild last night, but worsened this morning, prompting her daughter to call for an ambulance. Patient was brought to the ED via ACLS, was found hypoxic at 88%, and received Lasix and Nitro in route to the ED. Patient was discharged last week s/p ICD placement on 08/16/[address] Gustafson. On that same admission, patient was intubated in the ED with time spent in the ICU. Previously, the patient has multiple admissions to the hospital for CHF exacerbations, pulmonary edema, and pneumonia. Currently denies chest pain, SOB, or any additional complaints. She is actively requesting food and xanax. Patient is a poor historian, and is currently only AOx1 (oriented to herself, not place or time). ED course: KCl 10meq, Kdur40, Morphine 2mg, Nitro bid 2%, EKG LBBB nsr w/PVCs + Supraventricular complexes, CT chest negative for PE. ICU Course: Patient was brought in on BiPAP in respiratory distress. Patient was given 40mg ivp stat lasix and 2mg stat morphine and started on nitro gtt. Patient satting 100% on BiPAP, HR 82bpm, BP 119/74, RR 36brpm Past medical hx: Afib, HTN, DM, COPD, CHF, RA Past Surgical Hx: ICD placed 08/16/16; Cholecystectomy; Coronary stent (proximal RCA) placed in June 2016 Allergies: moxifloxacin Family hx: Psychiatric : daughter has bipolar disorder; Medical: unknown Review of Systems - Review of Systems Systems not reviewed;Unavailable: Dementia (AO x 1) Past Patient History - Infectious Disease Hx of Infectious Diseases: None - Tetanus Immunizations Tetanus Immunization: Unknown - Past Medical History & Family History Past Medical History?: Yes - Past Social History Smoking Status: Never Smoked - CARDIAC Hx Atrial Fibrillation: Yes Hx Congestive Heart Failure: Yes Hx Hypercholesterolemia: Yes Hx Hypertension: Yes - PULMONARY Hx Asthma: Yes Hx Chronic Obstructive Pulmonary Disease (COPD): Yes Hx Pneumonia: Yes (08/2015) - NEUROLOGICAL Hx Dementia: Yes - HEENT Hx HEENT Problems: No - RENAL Hx Chronic Kidney Disease: No Hx Kidney Stones: No - ENDOCRINE/METABOLIC Hx Hyperthyroidism: No Hx Hypothyroidism: No - HEMATOLOGICAL/ONCOLOGICAL Hx Anemia: No Hx Human Immunodeficiency Virus (HIV): No Hx Sickle Cell Disease: No - INTEGUMENTARY Hx Dermatological Problems: No - MUSCULOSKELETAL/RHEUMATOLOGICAL Hx Arthritis: Yes Hx Osteoporosis: Yes Hx Rheumatoid Arthritis: Yes - GASTROINTESTINAL Hx Gall Bladder Disease: Yes - GENITOURINARY/GYNECOLOGICAL Hx Sexually Transmitted Disorders: No - PSYCHIATRIC Hx Anxiety: Yes Hx Bipolar Disorder: No Hx Depression: No Hx Post Traumatic Stress Disorder: No Hx Schizophrenia: No Hx Substance Use: No - SURGICAL HISTORY Hx Cholecystectomy: Yes Hx Coronary Stent: Yes (proximal RCA stent) - ANESTHESIA Hx Anesthesia: Yes Hx Anesthesia Reactions: No Hx Malignant Hyperthermia: No Meds Allergies/Adverse Reactions: Allergies Allergy/AdvReac Type Severity Reaction Status Date / Time moxifloxacin HCl Allergy Severe ANAPHYLAXIS Verified 08/22/16 06:41 [From Avelox] - Medications Medications: Current Medications Alprazolam (Xanax) 0.5 mg PO Q12 PRN PRN Reason: Anxiety Aspirin (Aspirin Chewable) 81 mg PO DAILY [facility] Carvedilol (Coreg) 6.25 mg PO BID [facility] Clopidogrel Bisulfate (Plavix) 75 mg PO DAILY [facility] Famotidine (Pepcid) 20 mg PO DAILY [facility] Ferrous Sulfate (Feosol) 325 mg PO BID [facility] Furosemide (Lasix) 40 mg IVP Q12 [facility] Heparin Sodium (Porcine) (Heparin) 5,000 units SC Q12 [facility] Nitroglycerin/Dextrose (Nitroglycerin 50 Mg/250 Ml D5w) 50 mg in 250 mls @ 1.5 mls/hr IV .Q24H [facility]; 5 MCG/MIN PRN Reason: Protocol Insulin Aspart (Novolog) 0 unit SC ACHS [facility] PRN Reason: Protocol Rosuvastatin Calcium (Crestor) 5 mg PO HS [facility] Physical Exam - Constitutional Appears: No Acute Distress, Chronically Ill - Head Exam Head Exam: ATRAUMATIC, NORMAL INSPECTION, NORMOCEPHALIC - Eye Exam Eye Exam: Normal appearance, PERRL Pupil Exam: NORMAL ACCOMODATION, PERRL - ENT Exam ENT Exam: Mucous Membranes Moist Additional comments: BiPAP on poor dentition - Neck Exam Neck exam: Positive for: Full Rom, Normal Inspection - Respiratory Exam Respiratory Exam: Rhonchi (R lung base), NORMAL BREATHING PATTERN - Cardiovascular Exam Cardiovascular Exam: Tachycardia, +S1, +S2 Additional comments: ICD placed on left chest - GI/Abdominal Exam GI & Abdominal Exam: Normal Bowel Sounds, Soft. absent: Tenderness - Extremities Exam Extremities exam: Positive for: normal inspection. Negative for: pedal edema - Back Exam Back exam: NORMAL INSPECTION. absent: rash noted - Neurological Exam Neurological exam: Alert - Psychiatric Exam Psychiatric exam: Normal Affect, Normal Mood - Skin Skin Exam: Dry, Intact, Normal Color, Warm Results - Vital Signs Recent Vital Signs: Last Vital Signs Temp Pulse 94 H 08/22/16 16:25 Resp 35 H 08/22/16 16:25 BP 159/96 H 08/22/16 16:25 Pulse Ox 100 08/22/16 16:25 - Labs Result Diagrams: 08/22/16 07:00 08/22/16 07:00 Labs: Laboratory Results - last 24 hr 08/22/16 08/22/16 13:11 14:29 POC Glucose (mg/dL) 98 Total Creatine Kinase 34 CK-MB (Mass) 0.86 Troponin I, Quant < 0.0120 Assessment & Plan - Assessment and Plan (Free Text) Assessment: 81F PMHx significant for A.fib, HTN, DM, COPD, CHF, and RA presenting with SOB Plan: Neuro -Patient has hx of dementia and is AO x 1 -Xanax 0.5mg po q12 -no acute issues Cardiovascular -acute on chronic systolic heart failure -ECHO 08/02/16 - suboptimal study. LVEF approximately 35%, septum appears akinetic and dyskinetic, moderate pulmonary hypertension -Echo- 06/25/16- Systolic function is mildly impaired, EF- 40-45%. Akinesis and thinning of basal and mid inferior wall and septal wall segments (both anterior and inferior)indicative of prior MS. LA moderately dilated. RA mildly dilated. AV moderately sclerotic. Mod tricuspid regurg (please see full report) -Cardiac cath 08/11/16 - left main patent, LAD has eccentric calcification of the mid vessel. 80% stenosis of the mid vessel with a hazy opacity in the mid. Left circumflex has 50% stenosis in proximal vessel. RCA has a widely patent stent and eccentric calcification in the distal vessel. LVEF is 35%. -ICD placed by Dr. Gustafson 08/16/16. Site is [facility]. -NEO neg x1 -BNP 3540 -ASA 81mg po daily -Coreg 6.25mg PO BID -Plavix 75mg PO Daily -Crestor 5mg po hs -Lasix 40mg IVP Q12 -Nitro gtt -Dr Cunningham cardiology -Dr Gustafson cardiology Pulmonology -Hx of respiratory distress -on BiPAP due to hypoxemia -Patient was intubated and required ventilatory support on prior admission until (08/05/16) -CTA negative for PE GI -no acute issues Renal -no acute issues Heme -Hgb 9.7 -Ferrous sulfate 325mg PO BID -D dimer 801 -CTA negative for PE Endo -Hx DM2 -RISS -Accucheck MSK -no acute issues DVT ppx: SCDs; Heparin 5000u sc q12 GI ppx: Pepcid 20mg PO qd. Code status: full code Palliative care consult Case discussed with Dr. Liban James PGY2
[2016-08-22] MEDS: Nitroglycerin 50mg in D5W 50 MG/250 ML BOTTLE IV SCH (17:00)
[2016-08-22] MEDS: (Novolog) Insulin Aspart, Recombinant 100 u/ml 10 ml vial SC SCH ×2 (17:30→22:32)
[2016-08-22 18:40] LABS: DRAW SITE LBA
[2016-08-22] MEDS: Sodium Chloride 0.9% 1,000 ML IV SCH (19:30)
[2016-08-23 07:01] LABS: BASO # 0.1 K/uL (0.0-0.2); BASO % 1.1 % (0.0-2.0); EOS # 0.1 K/uL (0.0-0.7); EOS % 0.8 % (0.0-4.0); HEMATOCRIT 29.1 % (34.0-47.0); LYMPH # 1.9 K/uL (1.0-4.3); MEAN CELL VOLUME 72.3 fL (81.0-99.0); MEAN CORPUSCULAR HEMOGLOBIN 23.1 pg (27.0-31.0); MEAN CORPUSCULAR HGB CONC 31.9 g/dL (33.0-37.0); MEAN PLATELET VOLUME 9.7 fL (7.2-11.7); MONO # 1.3 K/uL (0.0-0.8); MONO % 10.9 % (0.0-10.0); RED CELL DISTRIBUTION WIDTH 19.6 % (11.5-14.5); WHITE BLOOD COUNT 11.9 K/uL (4.8-10.8)
[2016-08-23 07:08] LABS: CHLORIDE 97 mmol/L (98-107)
[2016-08-23 07:09] LABS: POTASSIUM 3.3 mmol/L (3.6-5.2); SODIUM 136 mmol/L (132-148)
[2016-08-23 07:11] LABS: ALKALINE PHOSPHATASE 94 U/L (38-126); ALT/SGPT 12 U/L (9-52); AST/SGOT 22 U/L (14-36); BILIRUBIN,TOTAL 1.4 mg/dL (0.2-1.3); BLOOD UREA NITROGEN 14 mg/dL (7-17); CARBON DIOXIDE 28 mmol/L (22-30); GFR AFRICAN-AMERICAN > 60; GLUCOSE,RANDOM 97 mg/dL (65-105); TOTAL PROTEIN 7.1 g/dL (6.3-8.3)
[2016-08-23 07:12] LABS: CALCIUM 8.7 mg/dl (8.6-10.4); MAGNESIUM 1.5 mg/dL (1.6-2.3); PHOSPHOROUS 3.1 mg/dL (2.5-4.5)
--- NOTE | 2016-08-23 07:20 | CP.CCUPN ---
<Kasey James - Last Filed: 08/23/16 11:24> CCU Subjective - Physician Review Subjective (Free Text): 08/23/16 08:59 Patient seen and examined at bedside. Patient is AO X 1 Had no acute events overnight as per nursing and was afebrile Patient needed BiPAP overnight but is on NC this AM and satting well. Making good urine. Due for angioplasty this afternoon with Dr. Cnuningham at [facility] ([facility]3] ROS unobtainable. CCU Objective - Vital Signs / Intake & Output Vital Signs (Last 4 hours): Vital Signs Temp Pulse Resp BP Pulse Ox 08/23/16 06:00 84 18 120/60 99 08/23/16 05:00 75 18 93/48 L 97 08/23/16 04:00 98.0 F 77 18 107/51 L 100 Intake and Output (Last 8hrs): Intake & Output 08/22/16 08/23/16 08/23/16 22:59 06:59 14:59 Intake Total 528 184 Output Total 500 1000 Balance 28 -816 Weight 89 lb 15.178 oz 88 lb 8.239 oz Intake: IV 0 Intake, IV Amount 178 184 Left Forearm 178 184 Oral 350 Output: Urine 500 1000 Urethral (Hernandez) 500 1000 Other: Voiding Method Indwelling Catheter - Physical Exam Head: Positive for: Atraumatic, Normocephalic Pupils: Positive for: PERRL Extroacular Muscles: Positive for: EOMI Conjunctiva: Positive for: Normal. Negative for: Injected, Icteric Mouth: Positive for: Moist Mucous Membranes Neck: Positive for: Normal Range of Motion Respiratory/Chest: Positive for: Rhonchi (R lung base). Negative for: Accessory Muscle Use Cardiovascular: Positive for: Regular Rate and Rhythm, Normal S1, S2, Other ( ICD placed in left chest). Negative for: Murmurs Abdomen: Positive for: Normal Bowel Sounds. Negative for: Tenderness Upper Extremity: Positive for: Normal Inspection. Negative for: Cyanosis, Edema Lower Extremity: Positive for: Normal Inspection. Negative for: Edema Neurological: Positive for: Speech Normal Skin: Positive for: Warm, Dry, Normal Color. Negative for: Rashes Psychiatric: Positive for: Alert. Negative for: Oriented x 3, Normal Insight, Normal Concentration - Medications Active Medications: Active Medications Generic Name Dose Route Start Last Admin Trade Name Freq PRN Reason Stop Dose Admin Alprazolam 0.5 mg 08/22/16 12:15 08/22/16 22:35 Xanax PO 0.5 mg Q12 PRN Administration Anxiety Aspirin 81 mg 08/23/16 10:00 Aspirin Chewable PO DAILY [facility] Carvedilol 6.25 mg 08/22/16 18:00 08/22/16 18:46 Coreg PO 6.25 mg BID BLAKE Administration Clopidogrel Bisulfate 75 mg 08/23/16 10:00 Plavix PO DAILY BLAKE Famotidine 20 mg 08/23/16 10:00 Pepcid PO DAILY BLAKE Ferrous Sulfate 325 mg 08/22/16 18:00 08/22/16 18:46 Feosol PO 325 mg BID BLAKE Administration Furosemide 40 mg 08/22/16 22:00 08/22/16 22:35 Lasix IVP 40 mg Q12 BLAKE Administration Heparin Sodium (Porcine) 5,000 units 08/22/16 22:00 08/22/16 22:35 Heparin SC 5,000 units Q12 BLAKE Administration Nitroglycerin/Dextrose 50 mg in 250 mls @ 1.5 mls/hr 08/22/16 17:00 08/22/16 17:05 Nitroglycerin 50 Mg/250 Ml D5w IV 10 mcg/min .Q24H BLAKE 3 mls/hr Protocol Titration 5 MCG/MIN Sodium Chloride 1,000 mls @ 20 mls/hr 08/22/16 19:00 08/22/16 19:30 Sodium Chloride 0.9% IV 20 mls/hr .Q24H BLAKE Administration Insulin Aspart 0 unit 08/22/16 16:30 08/22/16 22:32 Novolog SC Not Given ACHS [facility] Protocol Rosuvastatin Calcium 5 mg 08/22/16 22:00 08/22/16 22:35 Crestor PO 5 mg HS BLAKE Administration - Patient Studies Lab Studies: Lab Studies 08/23/16 08/23/16 08/22/16 Range/Units 06:53 06:53 22:34 WBC 11.9 H D (4.8-10.8) K/uL RBC 4.02 (3.80-5.20) Mil/uL Hgb 9.3 L (11.0-16.0) g/dL Hct 29.1 L (34.0-47.0) % MCV 72.3 L (81.0-99.0) fL MCH 23.1 L (27.0-31.0) pg MCHC 31.9 L (33.0-37.0) g/dL RDW 19.6 H (11.5-14.5) % Plt Count 278 (130-400) K/uL MPV 9.7 (7.2-11.7) fL Neut % (Auto) 71.2 (50.0-75.0) % Lymph % (Auto) 16.0 L (20.0-40.0) % [place] % (Auto) 10.9 H (0.0-10.0) % Eos % (Auto) 0.8 (0.0-4.0) % Baso % (Auto) 1.1 (0.0-2.0) % Neut # 8.5 H (1.8-7.0) K/uL Lymph # 1.9 (1.0-4.3) K/uL [place] # 1.3 H (0.0-0.8) K/uL Eos # 0.1 (0.0-0.7) K/uL Baso # 0.1 (0.0-0.2) K/uL Puncture Site pCO2 (35-45) mm/Hg pO2 (80-100) mm/Hg HCO3 (21-28) mmol/L ABG pH (7.35-7.45) ABG Total CO2 (22-28) mmol/L ABG O2 Saturation (95-98) % ABG Base Excess (-2.0-3.0) mmol/L Gael Test ABG Potassium (3.6-5.2) mmol/L A-a O2 Difference mm/Hg Respiratory Index Sodium 136 (132-148) mmol/l Chloride 97 L (98-107) mmol/L Glucose (65-105) mg/dl Lactate (0.7-2.1) mmol/L FiO2 % Inspiratory BiPAP Expiratory BiPAP Potassium 3.3 L (3.6-5.2) mmol/L Carbon Dioxide 28 (22-30) mmol/L Anion Gap 14 (10-20) BUN 14 (7-17) mg/dL Creatinine 0.8 (0.7-1.2) MG/DL Est GFR ( Amer) > 60 Est GFR (Non-Af Amer) > 60 POC Glucose (mg/dL) 103 (65-110) mg/dL Random Glucose 97 (65-105) mg/dL Calcium 8.7 (8.6-10.4) mg/dl Phosphorus 3.1 (2.5-4.5) mg/dL Magnesium 1.5 L (1.6-2.3) mg/dL Total Bilirubin 1.4 H (0.2-1.3) mg/dL AST 22 (14-36) U/L ALT 12 (9-52) U/L Alkaline Phosphatase 94 (38-126) U/L Total Creatine Kinase 45 (30-135) U/L CK-MB (Mass) 1.74 (0.0-3.38) ng/mL Troponin I, Quant (0.00-0.120) ng/mL Total Protein 7.1 (6.3-8.3) g/dL Albumin 3.6 (3.5-5.0) g/dL Globulin 3.5 (2.2-3.9) gm/dL Albumin/Globulin Ratio 1.0 (1.0-2.1) Arterial Blood Potassium (3.6-5.2) mmol/L 08/22/16 08/22/16 08/22/16 Range/Units 22:29 18:35 17:40 WBC (4.8-10.8) K/uL RBC (3.80-5.20) Mil/uL Hgb (11.0-16.0) g/dL Hct (34.0-47.0) % MCV (81.0-99.0) fL MCH (27.0-31.0) pg MCHC (33.0-37.0) g/dL RDW (11.5-14.5) % Plt Count (130-400) K/uL MPV (7.2-11.7) fL Neut % (Auto) (50.0-75.0) % Lymph % (Auto) (20.0-40.0) % [place] % (Auto) (0.0-10.0) % Eos % (Auto) (0.0-4.0) % Baso % (Auto) (0.0-2.0) % Neut # (1.8-7.0) K/uL Lymph # (1.0-4.3) K/uL [place] # (0.0-0.8) K/uL Eos # (0.0-0.7) K/uL Baso # (0.0-0.2) K/uL Puncture Site Lba pCO2 41 (35-45) mm/Hg pO2 415 H (80-100) mm/Hg HCO3 23.3 (21-28) mmol/L ABG pH 7.36 (7.35-7.45) ABG Total CO2 24.5 (22-28) mmol/L ABG O2 Saturation 99.8 H (95-98) % ABG Base Excess -2.2 L (-2.0-3.0) mmol/L Gael Test Na ABG Potassium 3.9 (3.6-5.2) mmol/L A-a O2 Difference 247.0 mm/Hg Respiratory Index 0.6 Sodium 137.0 (132-148) mmol/l Chloride 106.0 (98-107) mmol/L Glucose 125 H (65-105) mg/dl Lactate 1.6 (0.7-2.1) mmol/L FiO2 100.0 % Inspiratory BiPAP 20 Expiratory BiPAP 10 Potassium (3.6-5.2) mmol/L Carbon Dioxide (22-30) mmol/L Anion Gap (10-20) BUN (7-17) mg/dL Creatinine (0.7-1.2) MG/DL Est GFR ( Amer) Est GFR (Non-Af Amer) POC Glucose (mg/dL) 197 H (65-110) mg/dL Random Glucose (65-105) mg/dL Calcium (8.6-10.4) mg/dl Phosphorus (2.5-4.5) mg/dL Magnesium (1.6-2.3) mg/dL Total Bilirubin (0.2-1.3) mg/dL AST (14-36) U/L ALT (9-52) U/L Alkaline Phosphatase (38-126) U/L Total Creatine Kinase 40 (30-135) U/L CK-MB (Mass) 1.32 (0.0-3.38) ng/mL Troponin I, Quant 0.0310 (0.00-0.120) ng/mL Total Protein (6.3-8.3) g/dL Albumin (3.5-5.0) g/dL Globulin (2.2-3.9) gm/dL Albumin/Globulin Ratio (1.0-2.1) Arterial Blood Potassium 3.9 (3.6-5.2) mmol/L 08/22/16 08/22/16 Range/Units 14:29 13:11 WBC (4.8-10.8) K/uL RBC (3.80-5.20) Mil/uL Hgb (11.0-16.0) g/dL Hct (34.0-47.0) % MCV (81.0-99.0) fL MCH (27.0-31.0) pg MCHC (33.0-37.0) g/dL RDW (11.5-14.5) % Plt Count (130-400) K/uL MPV (7.2-11.7) fL Neut % (Auto) (50.0-75.0) % Lymph % (Auto) (20.0-40.0) % [place] % (Auto) (0.0-10.0) % Eos % (Auto) (0.0-4.0) % Baso % (Auto) (0.0-2.0) % Neut # (1.8-7.0) K/uL Lymph # (1.0-4.3) K/uL [place] # (0.0-0.8) K/uL Eos # (0.0-0.7) K/uL Baso # (0.0-0.2) K/uL Puncture Site pCO2 (35-45) mm/Hg pO2 (80-100) mm/Hg HCO3 (21-28) mmol/L ABG pH (7.35-7.45) ABG Total CO2 (22-28) mmol/L ABG O2 Saturation (95-98) % ABG Base Excess (-2.0-3.0) mmol/L Gael Test ABG Potassium (3.6-5.2) mmol/L A-a O2 Difference mm/Hg Respiratory Index Sodium (132-148) mmol/l Chloride (98-107) mmol/L Glucose (65-105) mg/dl Lactate (0.7-2.1) mmol/L FiO2 % Inspiratory BiPAP Expiratory BiPAP Potassium (3.6-5.2) mmol/L Carbon Dioxide (22-30) mmol/L Anion Gap (10-20) BUN (7-17) mg/dL Creatinine (0.7-1.2) MG/DL Est GFR ( Amer) Est GFR (Non-Af Amer) POC Glucose (mg/dL) 98 (65-110) mg/dL Random Glucose (65-105) mg/dL Calcium (8.6-10.4) mg/dl Phosphorus (2.5-4.5) mg/dL Magnesium (1.6-2.3) mg/dL Total Bilirubin (0.2-1.3) mg/dL AST (14-36) U/L ALT (9-52) U/L Alkaline Phosphatase (38-126) U/L Total Creatine Kinase 34 (30-135) U/L CK-MB (Mass) 0.86 (0.0-3.38) ng/mL Troponin I, Quant < 0.0120 (0.00-0.120) ng/mL Total Protein (6.3-8.3) g/dL Albumin (3.5-5.0) g/dL Globulin (2.2-3.9) gm/dL Albumin/Globulin Ratio (1.0-2.1) Arterial Blood Potassium (3.6-5.2) mmol/L Laboratory Results - last 24 hr 08/22/16 08/22/16 08/22/16 13:11 14:29 17:40 WBC RBC Hgb Hct MCV MCH MCHC RDW Plt Count MPV Neut % (Auto) Lymph % (Auto) [place] % (Auto) Eos % (Auto) Baso % (Auto) Neut # Lymph # [place] # Eos # Baso # Puncture Site pCO2 pO2 HCO3 ABG pH ABG Total CO2 ABG O2 Saturation ABG Base Excess Gael Test ABG Potassium A-a O2 Difference Respiratory Index Sodium Chloride Glucose Lactate FiO2 Inspiratory BiPAP Expiratory BiPAP Potassium Carbon Dioxide Anion Gap BUN Creatinine Est GFR ( Amer) Est GFR (Non-Af Amer) POC Glucose (mg/dL) 98 197 H Random Glucose Calcium Phosphorus Magnesium Total Bilirubin AST ALT Alkaline Phosphatase Total Creatine Kinase 34 CK-MB (Mass) 0.86 Troponin I, Quant < 0.0120 Total Protein Albumin Globulin Albumin/Globulin Ratio Arterial Blood Potassium 08/22/16 08/22/16 08/22/16 18:35 22:29 22:34 WBC RBC Hgb Hct MCV MCH MCHC RDW Plt Count MPV Neut % (Auto) Lymph % (Auto) [place] % (Auto) Eos % (Auto) Baso % (Auto) Neut # Lymph # [place] # Eos # Baso # Puncture Site Lba pCO2 41 pO2 415 H HCO3 23.3 ABG pH 7.36 ABG Total CO2 24.5 ABG O2 Saturation 99.8 H ABG Base Excess -2.2 L Gael Test Na ABG Potassium 3.9 A-a O2 Difference 247.0 Respiratory Index 0.6 Sodium 137.0 Chloride 106.0 Glucose 125 H Lactate 1.6 FiO2 100.0 Inspiratory BiPAP 20 Expiratory BiPAP 10 Potassium Carbon Dioxide Anion Gap BUN Creatinine Est GFR ( Amer) Est GFR (Non-Af Amer) POC Glucose (mg/dL) 103 Random Glucose Calcium Phosphorus Magnesium Total Bilirubin AST ALT Alkaline Phosphatase Total Creatine Kinase 40 CK-MB (Mass) 1.32 Troponin I, Quant 0.0310 Total Protein Albumin Globulin Albumin/Globulin Ratio Arterial Blood Potassium 3.9 08/23/16 08/23/16 06:53 06:53 WBC 11.9 H D RBC 4.02 Hgb 9.3 L Hct 29.1 L MCV 72.3 L MCH 23.1 L MCHC 31.9 L RDW 19.6 H Plt Count 278 MPV 9.7 Neut % (Auto) 71.2 Lymph % (Auto) 16.0 L [place] % (Auto) 10.9 H Eos % (Auto) 0.8 Baso % (Auto) 1.1 Neut # 8.5 H Lymph # 1.9 [place] # 1.3 H Eos # 0.1 Baso # 0.1 Puncture Site pCO2 pO2 HCO3 ABG pH ABG Total CO2 ABG O2 Saturation ABG Base Excess Gael Test ABG Potassium A-a O2 Difference Respiratory Index Sodium 136 Chloride 97 L Glucose Lactate FiO2 Inspiratory BiPAP Expiratory BiPAP Potassium 3.3 L Carbon Dioxide 28 Anion Gap 14 BUN 14 Creatinine 0.8 Est GFR ( Amer) > 60 Est GFR (Non-Af Amer) > 60 POC Glucose (mg/dL) Random Glucose 97 Calcium 8.7 Phosphorus 3.1 Magnesium 1.5 L Total Bilirubin 1.4 H AST 22 ALT 12 Alkaline Phosphatase 94 Total Creatine Kinase 45 CK-MB (Mass) 1.74 Troponin I, Quant Total Protein 7.1 Albumin 3.6 Globulin 3.5 Albumin/Globulin Ratio 1.0 Arterial Blood Potassium EKG/Cardiology Studies: Cardiology / EKG Studies 08/22/16 13:00 EKG [ELECTROCARDIOGRAM] Timed Comment: Mode Of Transportation: Reason For Exam: chest pain, sob 08/22/16 14:00 EKG [ELECTROCARDIOGRAM] Timed Comment: Mode Of Transportation: Reason For Exam: chest pain, sob 08/22/16 21:00 EKG [ELECTROCARDIOGRAM] Timed Comment: Mode Of Transportation: Reason For Exam: chest pain, sob Fingerstick Blood Sugar Results: 197 Review of Systems - Review of Systems Systems not reviewed;Unavailable: Dementia Critical Care Progress Note - Nutrition Nutrition: Nutrition Category Date Time Status Heart Healthy Diet [DIET] Diets 08/22/16 Lunch Active Assessment/Plan - Assessment and Plan (Free Text) Assessment: 81F PMHx significant for A.fib, HTN, DM, COPD, CHF, and RA presenting with SOB Plan: Neuro -Patient has hx of dementia and is AO x 1 -Xanax 0.5mg po q12 -no acute issues Cardiovascular -acute on chronic systolic heart failure -ECHO 08/02/16 - suboptimal study. LVEF approximately 35%, septum appears akinetic and dyskinetic, moderate pulmonary hypertension -Echo- 06/25/16- Systolic function is mildly impaired, EF- 40-45%. Akinesis and thinning of basal and mid inferior wall and septal wall segments (both anterior and inferior)indicative of prior ID. LA moderately dilated. RA mildly dilated. AV moderately sclerotic. Mod tricuspid regurg (please see full report) -Cardiac cath 08/11/16 - left main patent, LAD has eccentric calcification of the mid vessel. 80% stenosis of the mid vessel with a hazy opacity in the mid. Left circumflex has 50% stenosis in proximal vessel. RCA has a widely patent stent and eccentric calcification in the distal vessel. LVEF is 35%. -Patient for angi[place] with Dr. [place] [facility] [place] 08/23 -ICD placed by Dr. Gustafson 08/16/16. Site is [facility]. -NEO neg x1 -BNP 3540 -ASA 81mg po daily -Coreg 6.25mg PO BID -Plavix 75mg PO Daily -Crestor 5mg po hs -Lasix 40mg IVP Q12 -Nitro gtt -Dr Cunningham cardiology -Dr Gustafson cardiology Pulmonology -Hx of respiratory distress -on BiPAP due to hypoxemia -Patient was intubated and required ventilatory support on prior admission until (08/05/16) -CTA negative for PE GI -no acute issues Renal -no acute issues -Lasix 40mg ivp q12 Heme -Hgb 9.3 -Ferrous sulfate 325mg PO BID -D dimer 801 -CTA negative for PE Endo -Hx DM2 -RISS -Accucheck MSK -no acute issues DVT ppx: SCDs; Heparin 5000u sc q12 GI ppx: Pepcid 20mg PO qd. Code status: full code Palliative care consult Case discussed with Dr. Allen James PGY2 <Rustam Villa - Last Filed: 08/23/16 16:41> CCU Objective - Vital Signs / Intake & Output Vital Signs (Last 4 hours): Vital Signs Temp 08/23/16 14:00 98.0 F Intake and Output (Last 8hrs): Intake & Output 08/23/16 08/23/16 08/23/16 06:59 14:59 22:59 Intake Total 184 561 46 Output Total 1000 215 40 Balance -816 346 6 Weight 88 lb 8.239 oz 88 lb Intake: Intake, IV Amount 184 161 46 Left Forearm 184 161 46 Oral 400 0 Output: Urine 1000 215 40 Urethral (Hernandez) 1000 215 40 Other: # Bowel Movements 0 0 - Medications Active Medications: Active Medications Generic Name Dose Route Start Last Admin Trade Name Freq PRN Reason Stop Dose Admin Alprazolam 0.5 mg 08/22/16 12:15 08/22/16 22:35 Xanax PO 0.5 mg Q12 PRN Administration Anxiety Aspirin 81 mg 08/23/16 10:00 08/23/16 10:58 Aspirin Chewable PO 81 mg DAILY BLAKE Administration Carvedilol 6.25 mg 08/22/16 18:00 08/23/16 10:56 Coreg PO 6.25 mg BID BLAKE Administration Clopidogrel Bisulfate 75 mg 08/23/16 10:00 08/23/16 10:56 Plavix PO 75 mg DAILY BLAKE Administration Famotidine 20 mg 08/23/16 10:00 08/23/16 10:55 Pepcid PO 20 mg DAILY BLAKE Administration Ferrous Sulfate 325 mg 08/22/16 18:00 08/23/16 10:56 Feosol PO 325 mg BID BLAKE Administration Furosemide 40 mg 08/22/16 22:00 08/23/16 11:08 Lasix IVP 40 mg Q12 BLAKE Administration Heparin Sodium (Porcine) 5,000 units 08/22/16 22:00 08/23/16 10:58 Heparin SC 5,000 units Q12 BLAKE Administration Nitroglycerin/Dextrose 50 mg in 250 mls @ 1.5 mls/hr 08/22/16 17:00 08/22/16 17:05 Nitroglycerin 50 Mg/250 Ml D5w IV 10 mcg/min .Q24H BLAKE 3 mls/hr Protocol Titration 5 MCG/MIN Sodium Chloride 1,000 mls @ 20 mls/hr 08/22/16 19:00 08/22/16 19:30 Sodium Chloride 0.9% IV 20 mls/hr .Q24H BLAKE Administration Insulin Aspart 0 unit 08/22/16 16:30 08/23/16 12:24 Novolog SC Not Given ACHS BLAKE Protocol Rosuvastatin Calcium 5 mg 08/22/16 22:00 08/22/16 22:35 Crestor PO 5 mg HS BLAKE Administration - Patient Studies Lab Studies: Lab Studies 08/23/16 08/23/16 08/23/16 Range/Units 16:05 11:12 07:12 WBC (4.8-10.8) K/uL RBC (3.80-5.20) Mil/uL Hgb (11.0-16.0) g/dL Hct (34.0-47.0) % MCV (81.0-99.0) fL MCH (27.0-31.0) pg MCHC (33.0-37.0) g/dL RDW (11.5-14.5) % Plt Count (130-400) K/uL MPV (7.2-11.7) fL Neut % (Auto) (50.0-75.0) % Lymph % (Auto) (20.0-40.0) % [place] % (Auto) (0.0-10.0) % Eos % (Auto) (0.0-4.0) % Baso % (Auto) (0.0-2.0) % Neut # (1.8-7.0) K/uL Lymph # (1.0-4.3) K/uL [place] # (0.0-0.8) K/uL Eos # (0.0-0.7) K/uL Baso # (0.0-0.2) K/uL Puncture Site pCO2 (35-45) mm/Hg pO2 (80-100) mm/Hg HCO3 (21-28) mmol/L ABG pH (7.35-7.45) ABG Total CO2 (22-28) mmol/L ABG O2 Saturation (95-98) % ABG Base Excess (-2.0-3.0) mmol/L Gael Test ABG Potassium (3.6-5.2) mmol/L A-a O2 Difference mm/Hg Respiratory Index Sodium (132-148) mmol/l Chloride (98-107) mmol/L Glucose (65-105) mg/dl Lactate (0.7-2.1) mmol/L FiO2 % Inspiratory BiPAP Expiratory BiPAP Potassium (3.6-5.2) mmol/L Carbon Dioxide (22-30) mmol/L Anion Gap (10-20) BUN (7-17) mg/dL Creatinine (0.7-1.2) MG/DL Est GFR ( Amer) Est GFR (Non-Af Amer) POC Glucose (mg/dL) 115 H 102 96 (65-110) mg/dL Random Glucose (65-105) mg/dL Calcium (8.6-10.4) mg/dl Phosphorus (2.5-4.5) mg/dL Magnesium (1.6-2.3) mg/dL Total Bilirubin (0.2-1.3) mg/dL AST (14-36) U/L ALT (9-52) U/L Alkaline Phosphatase (38-126) U/L Total Creatine Kinase (30-135) U/L CK-MB (Mass) (0.0-3.38) ng/mL Troponin I, Quant (0.00-0.120) ng/mL Total Protein (6.3-8.3) g/dL Albumin (3.5-5.0) g/dL Globulin (2.2-3.9) gm/dL Albumin/Globulin Ratio (1.0-2.1) Arterial Blood Potassium (3.6-5.2) mmol/L 08/23/16 08/23/16 08/22/16 Range/Units 06:53 06:53 22:34 WBC 11.9 H D (4.8-10.8) K/uL RBC 4.02 (3.80-5.20) Mil/uL Hgb 9.3 L (11.0-16.0) g/dL Hct 29.1 L (34.0-47.0) % MCV 72.3 L (81.0-99.0) fL MCH 23.1 L (27.0-31.0) pg MCHC 31.9 L (33.0-37.0) g/dL RDW 19.6 H (11.5-14.5) % Plt Count 278 (130-400) K/uL MPV 9.7 (7.2-11.7) fL Neut % (Auto) 71.2 (50.0-75.0) % Lymph % (Auto) 16.0 L (20.0-40.0) % [place] % (Auto) 10.9 H (0.0-10.0) % Eos % (Auto) 0.8 (0.0-4.0) % Baso % (Auto) 1.1 (0.0-2.0) % Neut # 8.5 H (1.8-7.0) K/uL Lymph # 1.9 (1.0-4.3) K/uL [place] # 1.3 H (0.0-0.8) K/uL Eos # 0.1 (0.0-0.7) K/uL Baso # 0.1 (0.0-0.2) K/uL Puncture Site pCO2 (35-45) mm/Hg pO2 (80-100) mm/Hg HCO3 (21-28) mmol/L ABG pH (7.35-7.45) ABG Total CO2 (22-28) mmol/L ABG O2 Saturation (95-98) % ABG Base Excess (-2.0-3.0) mmol/L Gael Test ABG Potassium (3.6-5.2) mmol/L A-a O2 Difference mm/Hg Respiratory Index Sodium 136 (132-148) mmol/l Chloride 97 L (98-107) mmol/L Glucose (65-105) mg/dl Lactate (0.7-2.1) mmol/L FiO2 % Inspiratory BiPAP Expiratory BiPAP Potassium 3.3 L (3.6-5.2) mmol/L Carbon Dioxide 28 (22-30) mmol/L Anion Gap 14 (10-20) BUN 14 (7-17) mg/dL Creatinine 0.8 (0.7-1.2) MG/DL Est GFR ( Amer) > 60 Est GFR (Non-Af Amer) > 60 POC Glucose (mg/dL) 103 (65-110) mg/dL Random Glucose 97 (65-105) mg/dL Calcium 8.7 (8.6-10.4) mg/dl Phosphorus 3.1 (2.5-4.5) mg/dL Magnesium 1.5 L (1.6-2.3) mg/dL Total Bilirubin 1.4 H (0.2-1.3) mg/dL AST 22 (14-36) U/L ALT 12 (9-52) U/L Alkaline Phosphatase 94 (38-126) U/L Total Creatine Kinase 45 (30-135) U/L CK-MB (Mass) 1.74 (0.0-3.38) ng/mL Troponin I, Quant 0.0380 (0.00-0.120) ng/mL Total Protein 7.1 (6.3-8.3) g/dL Albumin 3.6 (3.5-5.0) g/dL Globulin 3.5 (2.2-3.9) gm/dL Albumin/Globulin Ratio 1.0 (1.0-2.1) Arterial Blood Potassium (3.6-5.2) mmol/L 08/22/16 08/22/16 08/22/16 Range/Units 22:29 18:35 17:40 WBC (4.8-10.8) K/uL RBC (3.80-5.20) Mil/uL Hgb (11.0-16.0) g/dL Hct (34.0-47.0) % MCV (81.0-99.0) fL MCH (27.0-31.0) pg MCHC (33.0-37.0) g/dL RDW (11.5-14.5) % Plt Count (130-400) K/uL MPV (7.2-11.7) fL Neut % (Auto) (50.0-75.0) % Lymph % (Auto) (20.0-40.0) % [place] % (Auto) (0.0-10.0) % Eos % (Auto) (0.0-4.0) % Baso % (Auto) (0.0-2.0) % Neut # (1.8-7.0) K/uL Lymph # (1.0-4.3) K/uL [place] # (0.0-0.8) K/uL Eos # (0.0-0.7) K/uL Baso # (0.0-0.2) K/uL Puncture Site Lba pCO2 41 (35-45) mm/Hg pO2 415 H (80-100) mm/Hg HCO3 23.3 (21-28) mmol/L ABG pH 7.36 (7.35-7.45) ABG Total CO2 24.5 (22-28) mmol/L ABG O2 Saturation 99.8 H (95-98) % ABG Base Excess -2.2 L (-2.0-3.0) mmol/L Gael Test Na ABG Potassium 3.9 (3.6-5.2) mmol/L A-a O2 Difference 247.0 mm/Hg Respiratory Index 0.6 Sodium 137.0 (132-148) mmol/l Chloride 106.0 (98-107) mmol/L Glucose 125 H (65-105) mg/dl Lactate 1.6 (0.7-2.1) mmol/L FiO2 100.0 % Inspiratory BiPAP 20 Expiratory BiPAP 10 Potassium (3.6-5.2) mmol/L Carbon Dioxide (22-30) mmol/L Anion Gap (10-20) BUN (7-17) mg/dL Creatinine (0.7-1.2) MG/DL Est GFR ( Amer) Est GFR (Non-Af Amer) POC Glucose (mg/dL) 197 H (65-110) mg/dL Random Glucose (65-105) mg/dL Calcium (8.6-10.4) mg/dl Phosphorus (2.5-4.5) mg/dL Magnesium (1.6-2.3) mg/dL Total Bilirubin (0.2-1.3) mg/dL AST (14-36) U/L ALT (9-52) U/L Alkaline Phosphatase (38-126) U/L Total Creatine Kinase 40 (30-135) U/L CK-MB (Mass) 1.32 (0.0-3.38) ng/mL Troponin I, Quant 0.0310 (0.00-0.120) ng/mL Total Protein (6.3-8.3) g/dL Albumin (3.5-5.0) g/dL Globulin (2.2-3.9) gm/dL Albumin/Globulin Ratio (1.0-2.1) Arterial Blood Potassium 3.9 (3.6-5.2) mmol/L Laboratory Results - last 24 hr 08/22/16 08/22/16 08/22/16 17:40 18:35 22:29 WBC RBC Hgb Hct MCV MCH MCHC RDW Plt Count MPV Neut % (Auto) Lymph % (Auto) [place] % (Auto) Eos % (Auto) Baso % (Auto) Neut # Lymph # [place] # Eos # Baso # Puncture Site Lba pCO2 41 pO2 415 H HCO3 23.3 ABG pH 7.36 ABG Total CO2 24.5 ABG O2 Saturation 99.8 H ABG Base Excess -2.2 L Gael Test Na ABG Potassium 3.9 A-a O2 Difference 247.0 Respiratory Index 0.6 Sodium 137.0 Chloride 106.0 Glucose 125 H Lactate 1.6 FiO2 100.0 Inspiratory BiPAP 20 Expiratory BiPAP 10 Potassium Carbon Dioxide Anion Gap BUN Creatinine Est GFR ( Amer) Est GFR (Non-Af Amer) POC Glucose (mg/dL) 197 H Random Glucose Calcium Phosphorus Magnesium Total Bilirubin AST ALT Alkaline Phosphatase Total Creatine Kinase 40 CK-MB (Mass) 1.32 Troponin I, Quant 0.0310 Total Protein Albumin Globulin Albumin/Globulin Ratio Arterial Blood Potassium 3.9 08/22/16 08/23/16 08/23/16 22:34 06:53 06:53 WBC 11.9 H D RBC 4.02 Hgb 9.3 L Hct 29.1 L MCV 72.3 L MCH 23.1 L MCHC 31.9 L RDW 19.6 H Plt Count 278 MPV 9.7 Neut % (Auto) 71.2 Lymph % (Auto) 16.0 L [place] % (Auto) 10.9 H Eos % (Auto) 0.8 Baso % (Auto) 1.1 Neut # 8.5 H Lymph # 1.9 [place] # 1.3 H Eos # 0.1 Baso # 0.1 Puncture Site pCO2 pO2 HCO3 ABG pH ABG Total CO2 ABG O2 Saturation ABG Base Excess Gael Test ABG Potassium A-a O2 Difference Respiratory Index Sodium 136 Chloride 97 L Glucose Lactate FiO2 Inspiratory BiPAP Expiratory BiPAP Potassium 3.3 L Carbon Dioxide 28 Anion Gap 14 BUN 14 Creatinine 0.8 Est GFR ( Amer) > 60 Est GFR (Non-Af Amer) > 60 POC Glucose (mg/dL) 103 Random Glucose 97 Calcium 8.7 Phosphorus 3.1 Magnesium 1.5 L Total Bilirubin 1.4 H AST 22 ALT 12 Alkaline Phosphatase 94 Total Creatine Kinase 45 CK-MB (Mass) 1.74 Troponin I, Quant 0.0380 Total Protein 7.1 Albumin 3.6 Globulin 3.5 Albumin/Globulin Ratio 1.0 Arterial Blood Potassium 08/23/16 08/23/16 08/23/16 07:12 11:12 16:05 WBC RBC Hgb Hct MCV MCH MCHC RDW Plt Count MPV Neut % (Auto) Lymph % (Auto) [place] % (Auto) Eos % (Auto) Baso % (Auto) Neut # Lymph # [place] # Eos # Baso # Puncture Site pCO2 pO2 HCO3 ABG pH ABG Total CO2 ABG O2 Saturation ABG Base Excess Gael Test ABG Potassium A-a O2 Difference Respiratory Index Sodium Chloride Glucose Lactate FiO2 Inspiratory BiPAP Expiratory BiPAP Potassium Carbon Dioxide Anion Gap BUN Creatinine Est GFR ( Amer) Est GFR (Non-Af Amer) POC Glucose (mg/dL) 96 102 115 H Random Glucose Calcium Phosphorus Magnesium Total Bilirubin AST ALT Alkaline Phosphatase Total Creatine Kinase CK-MB (Mass) Troponin I, Quant Total Protein Albumin Globulin Albumin/Globulin Ratio Arterial Blood Potassium EKG/Cardiology Studies: Cardiology / EKG Studies 08/22/16 21:00 EKG [ELECTROCARDIOGRAM] Timed Comment: Mode Of Transportation: Reason For Exam: chest pain, sob Attending/Attestation - Attestation I have personally seen and examined this patient.: Yes I have fully participated in the care of the patient.: Yes I have reviewed all pertinent clinical information: Yes Notes (Text): 08/23/16 16:40 Patient seen and examined in the intensive care unit. Case discussed with house staff in the morning rounds. Patient transfrred to ICU yesterday for shortness of breath/respiratory failure and placed on BiPAP Breathing much improved Angioplasty canceled by Dr. Cunningham Continue medical management
[2016-08-23] MEDS: (Novolog) Insulin Aspart, Recombinant 100 u/ml 10 ml vial SC SCH ×4 (08:00→22:11)
--- NOTE | 2016-08-23 10:27 | CP.PCM.CON ---
History of Present Illness - History of Present Illness History of Present Illness: I was asked to see patient by Dr. Beck. Patient is a 81 year old female with PMH CAD s/p PR, s/p PCI RCA, cardiomyopathy , [place] arrest s/p AICD who presents with chest pain ad dyspnea. The patient wsa admitted for an out of hospital [place] arrest previously and eventually was extubated. The patient underwent cardiac cath revealing signifcant stenosis of LAD. The patient was recommended to have AICD for secondary prevention. The patient was discharged to home, but returns with an episode of hypertensive emergency. She requird tridil and BiPAP. She was admitted to the ICU. She currently has no dyspnea. Review of Systems - Constitutional Constitutional: absent: As Per HPI, Anorexia, Chills, Daytime Sleepiness, Excessive Sweating, Fatigue, Fever, Frequent Falls, Headache, Increased Appetite , Lethargy, Malaise, Night Sweats, Snoring, Sleep Apnea, Weight Gain, Weight Loss, Weakness, Other - EENT Eyes: absent: As Per HPI, Blind Spots, Blurred Vision, Change in Vision, Decreased Night Vision, Diplopia, Discharge, Dry Eye, Exophthalmos, Floaters, Irritation, Itchy Eyes, Loss of Peripheral Vision, Pain, Photophobia, Requires Corrective Lenses, Sees Flashes, Spots in Vision, Tunnel Vision, Other Visual Disturbances, Loss of Vision, Other Ears: absent: As Per HPI, Decreased Hearing, Ear Discharge, Ear Pain, Tinnitus, Abnormal Hearing, Disequilibrium, Dizziness, Other Nose/Mouth/Throat: absent: As Per HPI, Epistaxis, Nasal Congestion, Nasal Discharge, Nasal Obstruction, Nasal Trauma, Nose Pain, Post Nasal Drip, Sinus Pain, Sinus Pressure, Bleeding Gums, Change in Voice, Dental Pain, Dry Mouth, Dysphagia, Halitosis, Hoarsness, Lip Swelling, Mouth Lesions, Mouth Pain, Odynophagia, Sore Throat, Throat Swelling, Tongue Swelling, Facial Pain, Neck Pain, Neck Mass, Other - Cardiovascular Cardiovascular: Dyspnea - Respiratory Respiratory: Dyspnea - Gastrointestinal Gastrointestinal: absent: As Per HPI, Abdominal Pain, Belching, Bloating, Change in Bowel Habits, Change in Stool Character, Coffee Ground Emesis, Constipation, Cramping, Diarrhea, Dyspepsia, Dysphagia, Early Satiety, Excessive Flatus, Fecal Incontinence, Heartburn, Hematemesis, Hematochezia, Loose Stools, Melena, Nausea, Odynophagia, Temesmus, Vomiting, Other - Genitourinary Genitourinary: absent: As Per HPI, Change in Urinary Stream, Difficulty Urinating, Dysuria, Flank Pain, Hematuria, Pyuria, Nocturia, Urinary Incontinence, Urinary Frequency, Urinary Hesitance, Urinary Urgency, Voiding Freq/Small Amts, Freq UTI, Hx Renal/Bladder Calculi, Hx /Renal Surgery, Bladder Distension, Other - Musculoskeletal Musculoskeletal: absent: As Per HPI, Abnormal Gait, Arthralgias, Atrophy, Back Pain, Deformity, Joint Swelling, Limited Range of Motion, Loss of Height, Muscle Cramps, Muscle Weakness, Myalgias, Neck Pain, Numbness, Radiating Pain into Limb, Stiffness, Tingling, Other - Integumentary Integumentary: absent: As Per HPI, Acne, Alopecia, Bleeding Lesions, Change in Hair, Change in Nails, Change in Pigmentation, Changing Lesions, Dry Skin, Erythema, Furuncle, Hirsutism, Lesions, New Lesions, Non-Healing Lesions, Photosensitivity, Pruritus, Rash, Skin Pain, Skin Ulcer, Sores, Striae, Swelling , Unusual Bruising, Wounds, Jaundice, Other - Neurological Neurological: absent: As Per HPI, Abnormal Gait, Abnormal Hearing, Abnormal Movements, Abnormal Speech, Behavioral Changes, Burning Sensations, Confusion, Convulsions, Disequilibrium, Dizziness, Numbness, Focal Weakness, Frequent Falls , Headaches, Lack of Coordination, Loss of Vision, Memory Loss, Paresthesias, Radicular Pain, Restless Legs, Sensory Deficit, Syncope, Tingling, Tremor, Vertigo, Weakness, Other Visual Disturbances, Other - Psychiatric Psychiatric: absent: As Per HPI, Abnormal Sleep Pattern, Anhedonia, Anxiety, Auditory Hallucinations, Behavioral Changes, Change in Appetite, Change in Libido, Confusion, Depression, Difficulty Concentrating, Hallucinations, Homicidal Ideation, Hopelessness, Irritability, Memory Loss, Mood Swings, Panic Attacks, Paranoia, Suicidal Ideation, Visual Hallucinations, Tactile Hallucinations, Other - Endocrine Endocrine: absent: As Per HPI, Change in Body Appearance, Change in Libido, Cold Intolorance, Deepening of Voice, Excessive Sweating, Fatigue, Flushing, Heat Intolorance, Increase in Ring/Shoe/Hat Size, Palpitations, Polydipsia, Polyphagia, Polyuria, Other - Hematologic/Lymphatic Hematologic: absent: As Per HPI, Easy Bleeding, Easy Bruising, Lymphadenopathy, Other Past Patient History - Infectious Disease Hx of Infectious Diseases: None - Tetanus Immunizations Tetanus Immunization: Unknown - Past Medical History & Family History Past Medical History?: Yes - Past Social History Smoking Status: Never Smoked - CARDIAC Hx Atrial Fibrillation: Yes Hx Congestive Heart Failure: Yes Hx Hypercholesterolemia: Yes Hx Hypertension: Yes Hx Pacemaker: Yes - PULMONARY Hx Asthma: Yes Hx Chronic Obstructive Pulmonary Disease (COPD): Yes Hx Pneumonia: Yes (08/2015) - NEUROLOGICAL Hx Dementia: Yes - HEENT Hx HEENT Problems: No - RENAL Hx Chronic Kidney Disease: No Hx Kidney Stones: No - ENDOCRINE/METABOLIC Hx Hyperthyroidism: No Hx Hypothyroidism: No - HEMATOLOGICAL/ONCOLOGICAL Hx Anemia: No Hx Human Immunodeficiency Virus (HIV): No Hx Sickle Cell Disease: No - INTEGUMENTARY Hx Dermatological Problems: No - MUSCULOSKELETAL/RHEUMATOLOGICAL Hx Falls: Yes - GASTROINTESTINAL Hx Gall Bladder Disease: Yes - GENITOURINARY/GYNECOLOGICAL Hx Sexually Transmitted Disorders: No - PSYCHIATRIC Hx Substance Use: No - SURGICAL HISTORY Hx Cholecystectomy: Yes Hx Coronary Stent: Yes (proximal RCA stent) - ANESTHESIA Hx Anesthesia: Yes Hx Anesthesia Reactions: No Hx Malignant Hyperthermia: No Meds Allergies/Adverse Reactions: Allergies Allergy/AdvReac Type Severity Reaction Status Date / Time moxifloxacin HCl Allergy Severe ANAPHYLAXIS Verified 08/22/16 06:41 [From Avelox] - Medications Medications: Current Medications Alprazolam (Xanax) 0.5 mg PO Q12 PRN PRN Reason: Anxiety Last Admin: 08/22/16 22:35 Dose: 0.5 mg Aspirin (Aspirin Chewable) 81 mg PO DAILY [facility] Carvedilol (Coreg) 6.25 mg PO BID [facility] Last Admin: 08/22/16 18:46 Dose: 6.25 mg Clopidogrel Bisulfate (Plavix) 75 mg PO DAILY [facility] Famotidine (Pepcid) 20 mg PO DAILY [facility] Ferrous Sulfate (Feosol) 325 mg PO BID [facility] Last Admin: 08/22/16 18:46 Dose: 325 mg Furosemide (Lasix) 40 mg IVP Q12 [facility] Last Admin: 08/22/16 22:35 Dose: 40 mg Heparin Sodium (Porcine) (Heparin) 5,000 units SC Q12 [facility] Last Admin: 08/22/16 22:35 Dose: 5,000 units Nitroglycerin/Dextrose (Nitroglycerin 50 Mg/250 Ml D5w) 50 mg in 250 mls @ 1.5 mls/hr IV .Q24H [facility]; 5 MCG/MIN PRN Reason: Protocol Last Titration: 08/22/16 17:05 Dose: 10 mcg/min, 3 mls/hr Sodium Chloride (Sodium Chloride 0.9%) 1,000 mls @ 20 mls/hr IV .Q24H [facility] Last Admin: 08/22/16 19:30 Dose: 20 mls/hr Magnesium Sulfate/Dextrose (Magnesium Sulfate 1 Gm/100 Ml D5w) 1 gm in 100 mls @ 300 mls/hr IVPB Q30M [facility] Stop: 08/23/16 10:34 Insulin Aspart (Novolog) 0 unit SC ACHS [facility] PRN Reason: Protocol Last Admin: 08/23/16 08:00 Dose: Not Given Potassium Chloride (K-Dur 20 Meq Er Tab) 40 meq PO ONCE ONE Stop: 08/23/16 09:36 Rosuvastatin Calcium (Crestor) 5 mg PO HS [facility] Last Admin: 08/22/16 22:35 Dose: 5 mg Physical Exam - Constitutional Appears: Non-toxic - Head Exam Head Exam: NORMAL INSPECTION - Eye Exam Eye Exam: Normal appearance - ENT Exam ENT Exam: Mucous Membranes Moist - Neck Exam Neck exam: Positive for: Full Rom - Respiratory Exam Respiratory Exam: Decreased Breath Sounds - Cardiovascular Exam Cardiovascular Exam: REGULAR RHYTHM - GI/Abdominal Exam GI & Abdominal Exam: Normal Bowel Sounds - Rectal Exam Rectal Exam: Deferred - Extremities Exam Extremities exam: Positive for: pedal edema - Back Exam Back exam: NORMAL INSPECTION - Neurological Exam Neurological exam: Alert, Oriented x3 - Psychiatric Exam Psychiatric exam: Normal Affect - Skin Skin Exam: Normal Color Results - Vital Signs Recent Vital Signs: Last Vital Signs Temp 98.0 F 08/23/16 04:00 Pulse 84 08/23/16 06:00 Resp 18 08/23/16 06:00 BP 120/60 08/23/16 06:00 Pulse Ox 99 08/23/16 06:00 - Labs Result Diagrams: 08/23/16 06:53 08/23/16 06:53 Labs: Laboratory Results - last 24 hr 08/22/16 08/22/16 08/22/16 13:11 14:29 17:40 WBC RBC Hgb Hct MCV MCH MCHC RDW Plt Count MPV Neut % (Auto) Lymph % (Auto) [place] % (Auto) Eos % (Auto) Baso % (Auto) Neut # Lymph # [place] # Eos # Baso # Puncture Site pCO2 pO2 HCO3 ABG pH ABG Total CO2 ABG O2 Saturation ABG Base Excess Gael Test ABG Potassium A-a O2 Difference Respiratory Index Sodium Chloride Glucose Lactate FiO2 Inspiratory BiPAP Expiratory BiPAP Potassium Carbon Dioxide Anion Gap BUN Creatinine Est GFR ( Amer) Est GFR (Non-Af Amer) POC Glucose (mg/dL) 98 197 H Random Glucose Calcium Phosphorus Magnesium Total Bilirubin AST ALT Alkaline Phosphatase Total Creatine Kinase 34 CK-MB (Mass) 0.86 Troponin I, Quant < 0.0120 Total Protein Albumin Globulin Albumin/Globulin Ratio Arterial Blood Potassium 08/22/16 08/22/16 08/22/16 18:35 22:29 22:34 WBC RBC Hgb Hct MCV MCH MCHC RDW Plt Count MPV Neut % (Auto) Lymph % (Auto) [place] % (Auto) Eos % (Auto) Baso % (Auto) Neut # Lymph # [place] # Eos # Baso # Puncture Site Lba pCO2 41 pO2 415 H HCO3 23.3 ABG pH 7.36 ABG Total CO2 24.5 ABG O2 Saturation 99.8 H ABG Base Excess -2.2 L Gael Test Na ABG Potassium 3.9 A-a O2 Difference 247.0 Respiratory Index 0.6 Sodium 137.0 Chloride 106.0 Glucose 125 H Lactate 1.6 FiO2 100.0 Inspiratory BiPAP 20 Expiratory BiPAP 10 Potassium Carbon Dioxide Anion Gap BUN Creatinine Est GFR ( Amer) Est GFR (Non-Af Amer) POC Glucose (mg/dL) 103 Random Glucose Calcium Phosphorus Magnesium Total Bilirubin AST ALT Alkaline Phosphatase Total Creatine Kinase 40 CK-MB (Mass) 1.32 Troponin I, Quant 0.0310 Total Protein Albumin Globulin Albumin/Globulin Ratio Arterial Blood Potassium 3.9 08/23/16 08/23/16 08/23/16 06:53 06:53 07:12 WBC 11.9 H D RBC 4.02 Hgb 9.3 L Hct 29.1 L MCV 72.3 L MCH 23.1 L MCHC 31.9 L RDW 19.6 H Plt Count 278 MPV 9.7 Neut % (Auto) 71.2 Lymph % (Auto) 16.0 L [place] % (Auto) 10.9 H Eos % (Auto) 0.8 Baso % (Auto) 1.1 Neut # 8.5 H Lymph # 1.9 [place] # 1.3 H Eos # 0.1 Baso # 0.1 Puncture Site pCO2 pO2 HCO3 ABG pH ABG Total CO2 ABG O2 Saturation ABG Base Excess Gael Test ABG Potassium A-a O2 Difference Respiratory Index Sodium 136 Chloride 97 L Glucose Lactate FiO2 Inspiratory BiPAP Expiratory BiPAP Potassium 3.3 L Carbon Dioxide 28 Anion Gap 14 BUN 14 Creatinine 0.8 Est GFR ( Amer) > 60 Est GFR (Non-Af Amer) > 60 POC Glucose (mg/dL) 96 Random Glucose 97 Calcium 8.7 Phosphorus 3.1 Magnesium 1.5 L Total Bilirubin 1.4 H AST 22 ALT 12 Alkaline Phosphatase 94 Total Creatine Kinase 45 CK-MB (Mass) 1.74 Troponin I, Quant 0.0380 Total Protein 7.1 Albumin 3.6 Globulin 3.5 Albumin/Globulin Ratio 1.0 Arterial Blood Potassium - EKG Data EKG Interpreted by: Myself EKG shows normal: Sinus rhythm Assessment & Plan (1) Acute on chronic combined systolic and diastolic congestive heart failure Assessment and Plan: there may be a compnent of myocardial ischemia. Patient has stenosis of the LAD. recommend medicla therapy. will benefit for coronary intervention. I will have a discussion with the erick. medical staibilization and blood pressure control. Status: Acute (2) CAD (coronary artery disease) Assessment and Plan: antiplatelet therapy. patient requires LAD intervention Status: Acute (3) Hypertension Assessment and Plan: blood pressure control Status: Chronic
--- NOTE | 2016-08-23 10:42 | CP.PCM.CON ---
History of Present Illness - History of Present Illness History of Present Illness: Palliative Consult requested by Kasey COOPER Reason: Goals of care discussion Patient is a 81 yo female admitted from home with complains with chest pain that worsened over night. Patient was recently discharged S/P ICD placement. Patient denies dizziness, palpitations, chills. Patient was found by EMS with O2Sat of 88%. Patient was given Lasix and Nitroglycerine in route to ED with improvement. The CXR upon admission was significant for B/L effusion and atelectasis. Treatment continued including Nytroglicerine drip, lasix and xanax . Patient admitted to ICU for further care. Per nursing patient has good appetite and is asking for Xanax frequently. PMH: anxiety, COPD, multiple admissions and assistance with mchanical intubation , A fib, CHF, dementia, DM, HTN, RA Fam> Hx: , lives at home with daughter Fam Hx: daughter bipolar, parents , patient denies other Hx Review of Systems - Constitutional Constitutional: absent: As Per HPI, Anorexia, Chills, Daytime Sleepiness, Excessive Sweating, Fatigue, Fever, Frequent Falls, Headache, Increased Appetite , Lethargy, Malaise, Night Sweats, Snoring, Sleep Apnea, Weight Gain, Weight Loss, Weakness, Other - EENT Eyes: absent: As Per HPI, Blind Spots, Blurred Vision, Change in Vision, Decreased Night Vision, Diplopia, Discharge, Dry Eye, Exophthalmos, Floaters, Irritation, Itchy Eyes, Loss of Peripheral Vision, Pain, Photophobia, Requires Corrective Lenses, Sees Flashes, Spots in Vision, Tunnel Vision, Other Visual Disturbances, Loss of Vision, Other Ears: absent: As Per HPI, Decreased Hearing, Ear Discharge, Ear Pain, Tinnitus, Abnormal Hearing, Disequilibrium, Dizziness, Other Additional comments: missing teeth - Cardiovascular Cardiovascular: Chest Pain - Respiratory Respiratory: Dyspnea on Exertion - Gastrointestinal Gastrointestinal: absent: As Per HPI, Abdominal Pain, Belching, Bloating, Change in Bowel Habits, Change in Stool Character, Coffee Ground Emesis, Constipation, Cramping, Diarrhea, Dyspepsia, Dysphagia, Early Satiety, Excessive Flatus, Fecal Incontinence, Heartburn, Hematemesis, Hematochezia, Loose Stools, Melena, Nausea, Odynophagia, Temesmus, Vomiting, Other - Genitourinary Genitourinary: absent: As Per HPI, Change in Urinary Stream, Difficulty Urinating, Dysuria, Flank Pain, Hematuria, Pyuria, Nocturia, Urinary Incontinence, Urinary Frequency, Urinary Hesitance, Urinary Urgency, Voiding Freq/Small Amts, Freq UTI, Hx Renal/Bladder Calculi, Hx /Renal Surgery, Bladder Distension, Other - Reproductive: Female Reproductive:Female: Post Menopausal - Menstruation Menstruation: Post Menopausal - Musculoskeletal Musculoskeletal: Muscle Weakness - Integumentary Integumentary: absent: As Per HPI, Acne, Alopecia, Bleeding Lesions, Change in Hair, Change in Nails, Change in Pigmentation, Changing Lesions, Dry Skin, Erythema, Furuncle, Hirsutism, Lesions, New Lesions, Non-Healing Lesions, Photosensitivity, Pruritus, Rash, Skin Pain, Skin Ulcer, Sores, Striae, Swelling , Unusual Bruising, Wounds, Jaundice, Other - Neurological Neurological: Behavioral Changes - Psychiatric Psychiatric: Anxiety - Endocrine Endocrine: absent: As Per HPI, Change in Body Appearance, Change in Libido, Cold Intolorance, Deepening of Voice, Excessive Sweating, Fatigue, Flushing, Heat Intolorance, Increase in Ring/Shoe/Hat Size, Palpitations, Polydipsia, Polyphagia, Polyuria, Other - Hematologic/Lymphatic Hematologic: absent: As Per HPI, Easy Bleeding, Easy Bruising, Lymphadenopathy, Other Past Patient History - Infectious Disease Hx of Infectious Diseases: None - Tetanus Immunizations Tetanus Immunization: Unknown - Past Medical History & Family History Past Medical History?: Yes - Past Social History Smoking Status: Never Smoked - CARDIAC Hx Atrial Fibrillation: Yes Hx Congestive Heart Failure: Yes Hx Hypercholesterolemia: Yes Hx Hypertension: Yes Hx Pacemaker: Yes - PULMONARY Hx Asthma: Yes Hx Chronic Obstructive Pulmonary Disease (COPD): Yes Hx Pneumonia: Yes (08/2015) - NEUROLOGICAL Hx Dementia: Yes - HEENT Hx HEENT Problems: No - RENAL Hx Chronic Kidney Disease: No Hx Kidney Stones: No - ENDOCRINE/METABOLIC Hx Hyperthyroidism: No Hx Hypothyroidism: No - HEMATOLOGICAL/ONCOLOGICAL Hx Anemia: No Hx Human Immunodeficiency Virus (HIV): No Hx Sickle Cell Disease: No - INTEGUMENTARY Hx Dermatological Problems: No - MUSCULOSKELETAL/RHEUMATOLOGICAL Hx Falls: Yes - GASTROINTESTINAL Hx Gall Bladder Disease: Yes - GENITOURINARY/GYNECOLOGICAL Hx Sexually Transmitted Disorders: No - PSYCHIATRIC Hx Substance Use: No - SURGICAL HISTORY Hx Cholecystectomy: Yes Hx Coronary Stent: Yes (proximal RCA stent) - ANESTHESIA Hx Anesthesia: Yes Hx Anesthesia Reactions: No Hx Malignant Hyperthermia: No Meds Allergies/Adverse Reactions: Allergies Allergy/AdvReac Type Severity Reaction Status Date / Time moxifloxacin HCl Allergy Severe ANAPHYLAXIS Verified 08/22/16 06:41 [From Avelox] - Medications Medications: Current Medications Alprazolam (Xanax) 0.5 mg PO Q12 PRN PRN Reason: Anxiety Last Admin: 08/22/16 22:35 Dose: 0.5 mg Aspirin (Aspirin Chewable) 81 mg PO DAILY [facility] Carvedilol (Coreg) 6.25 mg PO BID [facility] Last Admin: 08/22/16 18:46 Dose: 6.25 mg Clopidogrel Bisulfate (Plavix) 75 mg PO DAILY [facility] Famotidine (Pepcid) 20 mg PO DAILY [facility] Ferrous Sulfate (Feosol) 325 mg PO BID [facility] Last Admin: 08/22/16 18:46 Dose: 325 mg Furosemide (Lasix) 40 mg IVP Q12 [facility] Last Admin: 08/22/16 22:35 Dose: 40 mg Heparin Sodium (Porcine) (Heparin) 5,000 units SC Q12 [facility] Last Admin: 08/22/16 22:35 Dose: 5,000 units Nitroglycerin/Dextrose (Nitroglycerin 50 Mg/250 Ml D5w) 50 mg in 250 mls @ 1.5 mls/hr IV .Q24H [facility]; 5 MCG/MIN PRN Reason: Protocol Last Titration: 08/22/16 17:05 Dose: 10 mcg/min, 3 mls/hr Sodium Chloride (Sodium Chloride 0.9%) 1,000 mls @ 20 mls/hr IV .Q24H [facility] Last Admin: 08/22/16 19:30 Dose: 20 mls/hr Magnesium Sulfate/Dextrose (Magnesium Sulfate 1 Gm/100 Ml D5w) 1 gm in 100 mls @ 300 mls/hr IVPB Q30M [facility] Stop: 08/23/16 10:34 Insulin Aspart (Novolog) 0 unit SC ACHS [facility] PRN Reason: Protocol Last Admin: 08/23/16 08:00 Dose: Not Given Potassium Chloride (K-Dur 20 Meq Er Tab) 40 meq PO ONCE ONE Stop: 08/23/16 09:36 Rosuvastatin Calcium (Crestor) 5 mg PO HS [facility] Last Admin: 08/22/16 22:35 Dose: 5 mg Physical Exam - Constitutional Appears: Chronically Ill - Head Exam Head Exam: ATRAUMATIC, NORMAL INSPECTION, NORMOCEPHALIC - Eye Exam Eye Exam: EOMI, Normal appearance, PERRL Pupil Exam: NORMAL ACCOMODATION, PERRL - ENT Exam ENT Exam: Mucous Membranes Moist, Normal Exam - Neck Exam Neck exam: Positive for: Normal Inspection - Respiratory Exam Respiratory Exam: Clear to Auscultation Bilateral, NORMAL BREATHING PATTERN - Cardiovascular Exam Cardiovascular Exam: Tachycardia, REGULAR RHYTHM, +S1, +S2 - GI/Abdominal Exam GI & Abdominal Exam: Normal Bowel Sounds, Soft - Rectal Exam Rectal Exam: Deferred - Extremities Exam Extremities exam: Positive for: normal capillary refill, normal inspection - Back Exam Back exam: NORMAL INSPECTION - Neurological Exam Neurological exam: Alert, Oriented x3 - Psychiatric Exam Psychiatric exam: Anxious - Skin Skin Exam: Dry, Intact, Normal Color, Warm Results - Vital Signs Recent Vital Signs: Last Vital Signs Temp 98.0 F 08/23/16 04:00 Pulse 84 08/23/16 06:00 Resp 18 08/23/16 06:00 BP 120/60 08/23/16 06:00 Pulse Ox 99 08/23/16 06:00 - Labs Result Diagrams: 08/23/16 06:53 08/23/16 06:53 Labs: Laboratory Results - last 24 hr 08/22/16 08/22/16 08/22/16 13:11 14:29 17:40 WBC RBC Hgb Hct MCV MCH MCHC RDW Plt Count MPV Neut % (Auto) Lymph % (Auto) [place] % (Auto) Eos % (Auto) Baso % (Auto) Neut # Lymph # [place] # Eos # Baso # Puncture Site pCO2 pO2 HCO3 ABG pH ABG Total CO2 ABG O2 Saturation ABG Base Excess Gael Test ABG Potassium A-a O2 Difference Respiratory Index Sodium Chloride Glucose Lactate FiO2 Inspiratory BiPAP Expiratory BiPAP Potassium Carbon Dioxide Anion Gap BUN Creatinine Est GFR ( Amer) Est GFR (Non-Af Amer) POC Glucose (mg/dL) 98 197 H Random Glucose Calcium Phosphorus Magnesium Total Bilirubin AST ALT Alkaline Phosphatase Total Creatine Kinase 34 CK-MB (Mass) 0.86 Troponin I, Quant < 0.0120 Total Protein Albumin Globulin Albumin/Globulin Ratio Arterial Blood Potassium 08/22/16 08/22/16 08/22/16 18:35 22:29 22:34 WBC RBC Hgb Hct MCV MCH MCHC RDW Plt Count MPV Neut % (Auto) Lymph % (Auto) [place] % (Auto) Eos % (Auto) Baso % (Auto) Neut # Lymph # [place] # Eos # Baso # Puncture Site Lba pCO2 41 pO2 415 H HCO3 23.3 ABG pH 7.36 ABG Total CO2 24.5 ABG O2 Saturation 99.8 H ABG Base Excess -2.2 L Gael Test Na ABG Potassium 3.9 A-a O2 Difference 247.0 Respiratory Index 0.6 Sodium 137.0 Chloride 106.0 Glucose 125 H Lactate 1.6 FiO2 100.0 Inspiratory BiPAP 20 Expiratory BiPAP 10 Potassium Carbon Dioxide Anion Gap BUN Creatinine Est GFR ( Amer) Est GFR (Non-Af Amer) POC Glucose (mg/dL) 103 Random Glucose Calcium Phosphorus Magnesium Total Bilirubin AST ALT Alkaline Phosphatase Total Creatine Kinase 40 CK-MB (Mass) 1.32 Troponin I, Quant 0.0310 Total Protein Albumin Globulin Albumin/Globulin Ratio Arterial Blood Potassium 3.9 08/23/16 08/23/16 08/23/16 06:53 06:53 07:12 WBC 11.9 H D RBC 4.02 Hgb 9.3 L Hct 29.1 L MCV 72.3 L MCH 23.1 L MCHC 31.9 L RDW 19.6 H Plt Count 278 MPV 9.7 Neut % (Auto) 71.2 Lymph % (Auto) 16.0 L [place] % (Auto) 10.9 H Eos % (Auto) 0.8 Baso % (Auto) 1.1 Neut # 8.5 H Lymph # 1.9 [place] # 1.3 H Eos # 0.1 Baso # 0.1 Puncture Site pCO2 pO2 HCO3 ABG pH ABG Total CO2 ABG O2 Saturation ABG Base Excess Gael Test ABG Potassium A-a O2 Difference Respiratory Index Sodium 136 Chloride 97 L Glucose Lactate FiO2 Inspiratory BiPAP Expiratory BiPAP Potassium 3.3 L Carbon Dioxide 28 Anion Gap 14 BUN 14 Creatinine 0.8 Est GFR ( Amer) > 60 Est GFR (Non-Af Amer) > 60 POC Glucose (mg/dL) 96 Random Glucose 97 Calcium 8.7 Phosphorus 3.1 Magnesium 1.5 L Total Bilirubin 1.4 H AST 22 ALT 12 Alkaline Phosphatase 94 Total Creatine Kinase 45 CK-MB (Mass) 1.74 Troponin I, Quant 0.0380 Total Protein 7.1 Albumin 3.6 Globulin 3.5 Albumin/Globulin Ratio 1.0 Arterial Blood Potassium Assessment & Plan - Assessment and Plan (Free Text) Assessment: Palliative consult Code status Full Code, no advance directive on chart, PPS 30% I reviewed medical records, all diagnostic studies, examined and interviewed patient in the bed. Patient is alert, oriented , in no acute distress. Patient reports " I will be OK". Affect anxious. Breath sounds diminished , no cough noted, denies chest pain. Abdomen soft, active bowel sounds, reports good appetite. HR regular, 84. BP 120 /80, O2Sat 99% NC. patient moves all extremities freely. WBC 11.9, Hb 9.3, K 3.3, Mg 1.7. Goals of care discussed with patient on this visit as many times on previous admissions. Patient is looking forward recovering and returning home. Again, as many times before, patient stated that she would want to be allowed natural if meaningful recovery was not expected. Her daughter Suzanne, witnessed this types of discussions in the past as well and is aware her self of her mother's wishes. When patient presented with POLST to sign, patient asked for daughter Suzanne to be present. I supported her decision . Impression * Patient is not in acute distress * Anxiety dominates her mood * Despite hx of Dementia, patient is well aware of her condition and able to make decision regarding her care * Patient verbally stated that she would want natural if her recovery was not expected but did not feel comfortable signing the POLST without her daughter Juju present. patient has done this in the past as well Suggestion * Continue to apply all measures to support life, Full Code * Would transfer to floor when stable than discharge home Palliative care will fallow up with patient as needed. Thank you for consulting palliative care
[2016-08-23] MEDS ORDERED: Potassium Chloride 20 mEq ER Tab PO ONE (10:45)
[2016-08-23] MEDS: Magnesium Sulfate 1 gm in D5W 1 GM/100 ML BAG IVPB SCH ×2 (10:58→13:00)
--- NOTE | 2016-08-23 11:49 | CP.PCM.PN ---
Subjective - Date & Time of Evaluation Date of Evaluation: 08/23/16 Time of Evaluation: 07:45 - Subjective Subjective: PGY2 Medicine Note - Dr. Beck's Service Patient seen and examined this AM. No overnight events per nursing. Patient is resting comfortably. Planning in process for transfer to alternate facility for cardiac stent placement with Dr. Cunningham. Patient AAOx3. Objective - Vital Signs/Intake and Output Vital Signs (last 24 hours): Temp Pulse Resp BP Pulse Ox 98.0 F 84 18 118/63 99 08/23/16 04:00 08/23/16 06:00 08/23/16 06:00 08/23/16 11:08 08/23/16 06:00 Intake and Output: 08/23/16 08/23/16 06:59 18:59 Intake Total 456 23 Output Total 1250 60 Balance -794 -37 - Medications Medications: Current Medications Alprazolam (Xanax) 0.5 mg PO Q12 PRN PRN Reason: Anxiety Last Admin: 08/22/16 22:35 Dose: 0.5 mg Aspirin (Aspirin Chewable) 81 mg PO DAILY [facility] Last Admin: 08/23/16 10:58 Dose: 81 mg Carvedilol (Coreg) 6.25 mg PO BID [facility] Last Admin: 08/23/16 10:56 Dose: 6.25 mg Clopidogrel Bisulfate (Plavix) 75 mg PO DAILY [facility] Last Admin: 08/23/16 10:56 Dose: 75 mg Famotidine (Pepcid) 20 mg PO DAILY [facility] Last Admin: 08/23/16 10:55 Dose: 20 mg Ferrous Sulfate (Feosol) 325 mg PO BID [facility] Last Admin: 08/23/16 10:56 Dose: 325 mg Furosemide (Lasix) 40 mg IVP Q12 [facility] Last Admin: 08/23/16 11:08 Dose: 40 mg Heparin Sodium (Porcine) (Heparin) 5,000 units SC Q12 [facility] Last Admin: 08/23/16 10:58 Dose: 5,000 units Nitroglycerin/Dextrose (Nitroglycerin 50 Mg/250 Ml D5w) 50 mg in 250 mls @ 1.5 mls/hr IV .Q24H [facility]; 5 MCG/MIN PRN Reason: Protocol Last Titration: 08/22/16 17:05 Dose: 10 mcg/min, 3 mls/hr Sodium Chloride (Sodium Chloride 0.9%) 1,000 mls @ 20 mls/hr IV .Q24H [facility] Last Admin: 08/22/16 19:30 Dose: 20 mls/hr Magnesium Sulfate/Dextrose (Magnesium Sulfate 1 Gm/100 Ml D5w) 1 gm in 100 mls @ 300 mls/hr IVPB Q30M [facility] Stop: 08/23/16 11:49 Last Admin: 08/23/16 10:58 Dose: 300 mls/hr Insulin Aspart (Novolog) 0 unit SC ACHS [facility] PRN Reason: Protocol Last Admin: 08/23/16 08:00 Dose: Not Given Rosuvastatin Calcium (Crestor) 5 mg PO HS [facility] Last Admin: 08/22/16 22:35 Dose: 5 mg - Labs Labs: 08/23/16 06:53 08/23/16 06:53 - Additional Findings Additional findings: - Constitutional Appears: Non-toxic, No Acute Distress - Head Exam Head Exam: ATRAUMATIC, NORMOCEPHALIC - Eye Exam Eye Exam: EOMI - ENT Exam ENT Exam: Mucous Membranes Moist Additional comments: poor dentition - Respiratory Exam Respiratory Exam: Rhonchi (improving), NORMAL BREATHING PATTERN - Cardiovascular Exam Cardiovascular Exam: +S1, +S2 Additional comments: ICD left side chest, site is CDI - GI/Abdominal Exam GI & Abdominal Exam: Soft, Normal Bowel Sounds. absent: Tenderness - Extremities Exam Extremities Exam: absent: Pedal Edema - Neurological Exam Neurological Exam: Alert, Awake - Psychiatric Exam Psychiatric exam: Normal Affect, Normal Mood - Skin Skin Exam: Dry, Warm Assessment and Plan - Assessment and Plan (Free Text) Assessment: Respiratory Failure 08/23: patient being monitored in ICU. Patient needed BiPAP overnight but is on NC this AM and satting well. 08/22: CT chest - small b/l effusion R>L; small nodules in lung apicies. Hypoxemia on admission Patient was intubated and required ventilatory support on prior admission until (08/05/16) BIPAP Continue cardiac medications below. Acute on chronic combined systolic and diastolic congestive heart failure 08/23: Patient has stenosis of the LAD - Planning in process for transfer alternate facility for cardiac stent placement with Dr. Cunningham. -prior admissin: ECHO 08/02/16 - suboptimal study. LVEF approximately 35%, septum appears akinetic and dyskinetic, moderate pulmonary hypertension -Echo- 4/29/17- Systolic function is mildly impaired, EF- 40-45%. Akinesis and thinning of basal and mid inferior wall and septal wall segments (both anterior and inferior)indicative of prior PA. LA moderately dilated. RA mildly dilated. AV moderately sclerotic. Mod tricuspid regurg (please see full report) -ICD placed by Dr. Gustafson 08/16/16. Site is [facility]. -NEO neg x1 -BNP 3540 -f/u NEO + EKG 1400, 2100 -Continue Coreg 6.25mg PO BID -Continue Plavix 75mg PO Daily -Lasix 40mg IVP [id number] -Continue Asa 81mg PO Daily -Cardiology consulted, Dr. Cunningham (prior stents) + Dr. Gustafson (recent ICD placement); help appreciated CAD 08/23: Patient has stenosis of the LAD - Planning in process for transfer alternate facility for cardiac stent placement with Dr. Cunningham. -s/p ICD 08/16, ICD interrogated, functioning well. Pt was to follow up with Dr. Gustafson this week for wound check -consult cardio, Dr. Cunningham, f/u recs -recent cardiac cath shows severe LV dysfunction with EF of 35%. -f/u NEO + EKG 1400, 2100 -ECHO 08/02/16 - suboptimal study. LVEF approximately 35%, septum appears akinetic and dyskinetic, moderate pulmonary hypertension -Cardiac cath 08/11/16 - left main patent, LAD has eccentric calcification of the mid vessel. 80% stenosis of the mid vessel with a hazy opacity in the mid. Left circumflex has 50% stenosis in proximal vessel. RCA has a widely patent stent and eccentric calcification in the distal vessel. LVEF is 35%. -Dr. Cunningham plan in prior note, possible PCI for Mid LAD, however patient refused at that time. Hx Vtach - vtach last week while inpatient. - currently stable Anemia 08/23: Hgb 9.3. Hgb 9.7 -Continue ferrous sulfate 325mg PO BID Anxiety -Xanax 0.5mg PO Q12H PRN Hx Hypotension Currently stable. Continue to monitor. Hx Diabetes -Novolog ISS - low dose -accuchecks achs Prophylactic Measure -SCDs -Pepcid 20mg PO qd. -Rosuvastatin Calcium (Crestor) 5 mg PO HS [facility] -heparin 5k sc Q12H All medical management as per Dr. Beck.
--- NOTE | 2016-08-23 11:49 | CP.PCM.PN ---
Subjective - Date & Time of Evaluation Date of Evaluation: 08/23/16 Time of Evaluation: 11:45 - Subjective Subjective: notified by [employer] labor relations analyst that patient cannot be accepted for transfer for intervention because she has a reported history of dementia. will have to make arrangements for intervention in a different facility Objective - Vital Signs/Intake and Output Vital Signs (last 24 hours): Temp Pulse Resp BP Pulse Ox 98.0 F 84 18 118/63 99 08/23/16 04:00 08/23/16 06:00 08/23/16 06:00 08/23/16 11:08 08/23/16 06:00 Intake and Output: 08/23/16 08/23/16 06:59 18:59 Intake Total 456 23 Output Total 1250 60 Balance -794 -37 - Medications Medications: Current Medications Alprazolam (Xanax) 0.5 mg PO Q12 PRN PRN Reason: Anxiety Last Admin: 08/22/16 22:35 Dose: 0.5 mg Aspirin (Aspirin Chewable) 81 mg PO DAILY [facility] Last Admin: 08/23/16 10:58 Dose: 81 mg Carvedilol (Coreg) 6.25 mg PO BID [facility] Last Admin: 08/23/16 10:56 Dose: 6.25 mg Clopidogrel Bisulfate (Plavix) 75 mg PO DAILY [facility] Last Admin: 08/23/16 10:56 Dose: 75 mg Famotidine (Pepcid) 20 mg PO DAILY [facility] Last Admin: 08/23/16 10:55 Dose: 20 mg Ferrous Sulfate (Feosol) 325 mg PO BID [facility] Last Admin: 08/23/16 10:56 Dose: 325 mg Furosemide (Lasix) 40 mg IVP Q12 [facility] Last Admin: 08/23/16 11:08 Dose: 40 mg Heparin Sodium (Porcine) (Heparin) 5,000 units SC Q12 [facility] Last Admin: 08/23/16 10:58 Dose: 5,000 units Nitroglycerin/Dextrose (Nitroglycerin 50 Mg/250 Ml D5w) 50 mg in 250 mls @ 1.5 mls/hr IV .Q24H [facility]; 5 MCG/MIN PRN Reason: Protocol Last Titration: 08/22/16 17:05 Dose: 10 mcg/min, 3 mls/hr Sodium Chloride (Sodium Chloride 0.9%) 1,000 mls @ 20 mls/hr IV .Q24H [facility] Last Admin: 08/22/16 19:30 Dose: 20 mls/hr Magnesium Sulfate/Dextrose (Magnesium Sulfate 1 Gm/100 Ml D5w) 1 gm in 100 mls @ 300 mls/hr IVPB Q30M [facility] Stop: 08/23/16 11:49 Last Admin: 08/23/16 10:58 Dose: 300 mls/hr Insulin Aspart (Novolog) 0 unit SC ACHS [facility] PRN Reason: Protocol Last Admin: 08/23/16 08:00 Dose: Not Given Rosuvastatin Calcium (Crestor) 5 mg PO HS [facility] Last Admin: 08/22/16 22:35 Dose: 5 mg - Labs Labs: 08/23/16 06:53 08/23/16 06:53 Assessment and Plan (1) Acute on chronic combined systolic and diastolic congestive heart failure Status: Acute (2) CAD (coronary artery disease) Status: Acute (3) Hypertension Status: Chronic
--- NOTE | 2016-08-23 12:11 | CP.PCM.CON ---
<Jaquan Plascencia - Last Filed: 08/24/16 10:34> History of Present Illness - History of Present Illness History of Present Illness: Consult Note for Dr. Gustafson Reason for Consult: CHF exacerbation, recent ICD placement 81 y/o F with PMH of A-fib, CHF with EF of 35%, DM, COPD, and RA presented to the ED on 08/22/16 for SOB for 1 day. Pt describes a progressive shortness of breath after being released from the hospital several days prior. Pt's daughter called EMS and pt was brought into the ED. Pt was found to be hypoxix and placed on BIPAP. Pt has had many admissions for similar episodes in the past. Pt had ICD palced on 08/16/16. Pt received a Chest CT to rule out PE. EKG showed NSR with LBBB and PVC's, along with supraventricular complexes. This morning, pt is resting comfortably and off of BIPAP. Pt states she is doing much better than yesterday. Denies CP, N/V/D, cough, fevers, chills. Admits to occasional SOB. PMH: Afib, HTN, DM, COPD, CHF, RA Surgical Hx: ICD, cholecystectomy, coronary stent Allergies: moxifloxacin Medications: See MAR Review of Systems - Constitutional Constitutional: Fatigue. absent: Fever - EENT Eyes: absent: Blurred Vision, Change in Vision - Cardiovascular Cardiovascular: absent: Chest Pain, Irregular Heart Rhythm - Respiratory Respiratory: Dyspnea. absent: Cough - Gastrointestinal Gastrointestinal: absent: Diarrhea, Vomiting - Genitourinary Genitourinary: absent: Dysuria, Hematuria - Integumentary Integumentary: absent: New Lesions, Rash - Neurological Neurological: absent: Numbness, Syncope, Tingling Past Patient History - Infectious Disease Hx of Infectious Diseases: None - Tetanus Immunizations Tetanus Immunization: Unknown - Past Medical History & Family History Past Medical History?: Yes - Past Social History Smoking Status: Never Smoked - CARDIAC Hx Atrial Fibrillation: Yes Hx Congestive Heart Failure: Yes Hx Hypercholesterolemia: Yes Hx Hypertension: Yes Hx Pacemaker: Yes - PULMONARY Hx Asthma: Yes Hx Chronic Obstructive Pulmonary Disease (COPD): Yes Hx Pneumonia: Yes (08/2015) - NEUROLOGICAL Hx Dementia: Yes - HEENT Hx HEENT Problems: No - RENAL Hx Chronic Kidney Disease: No Hx Kidney Stones: No - ENDOCRINE/METABOLIC Hx Hyperthyroidism: No Hx Hypothyroidism: No - HEMATOLOGICAL/ONCOLOGICAL Hx Anemia: No Hx Human Immunodeficiency Virus (HIV): No Hx Sickle Cell Disease: No - INTEGUMENTARY Hx Dermatological Problems: No - MUSCULOSKELETAL/RHEUMATOLOGICAL Hx Falls: Yes - GASTROINTESTINAL Hx Gall Bladder Disease: Yes - GENITOURINARY/GYNECOLOGICAL Hx Sexually Transmitted Disorders: No - PSYCHIATRIC Hx Substance Use: No - SURGICAL HISTORY Hx Cholecystectomy: Yes Hx Coronary Stent: Yes (proximal RCA stent) - ANESTHESIA Hx Anesthesia: Yes Hx Anesthesia Reactions: No Hx Malignant Hyperthermia: No Meds Allergies/Adverse Reactions: Allergies Allergy/AdvReac Type Severity Reaction Status Date / Time moxifloxacin HCl Allergy Severe ANAPHYLAXIS Verified 09/05/16 07:00 [From Avelox] - Medications Medications: Current Medications Alprazolam (Xanax) 0.5 mg PO Q12 PRN PRN Reason: Anxiety Last Admin: 08/22/16 22:35 Dose: 0.5 mg Aspirin (Aspirin Chewable) 81 mg PO DAILY [facility] Last Admin: 08/23/16 10:58 Dose: 81 mg Carvedilol (Coreg) 6.25 mg PO BID [facility] Last Admin: 08/23/16 10:56 Dose: 6.25 mg Clopidogrel Bisulfate (Plavix) 75 mg PO DAILY [facility] Last Admin: 08/23/16 10:56 Dose: 75 mg Famotidine (Pepcid) 20 mg PO DAILY [facility] Last Admin: 08/23/16 10:55 Dose: 20 mg Ferrous Sulfate (Feosol) 325 mg PO BID [facility] Last Admin: 08/23/16 10:56 Dose: 325 mg Furosemide (Lasix) 40 mg IVP Q12 [facility] Last Admin: 08/23/16 11:08 Dose: 40 mg Heparin Sodium (Porcine) (Heparin) 5,000 units SC Q12 [facility] Last Admin: 08/23/16 10:58 Dose: 5,000 units Nitroglycerin/Dextrose (Nitroglycerin 50 Mg/250 Ml D5w) 50 mg in 250 mls @ 1.5 mls/hr IV .Q24H [facility]; 5 MCG/MIN PRN Reason: Protocol Last Titration: 08/22/16 17:05 Dose: 10 mcg/min, 3 mls/hr Sodium Chloride (Sodium Chloride 0.9%) 1,000 mls @ 20 mls/hr IV .Q24H [facility] Last Admin: 08/22/16 19:30 Dose: 20 mls/hr Insulin Aspart (Novolog) 0 unit SC ACHS [facility] PRN Reason: Protocol Last Admin: 08/23/16 08:00 Dose: Not Given Rosuvastatin Calcium (Crestor) 5 mg PO HS [facility] Last Admin: 08/22/16 22:35 Dose: 5 mg Physical Exam - Constitutional Appears: Non-toxic, No Acute Distress - Head Exam Head Exam: ATRAUMATIC, NORMAL INSPECTION, NORMOCEPHALIC - ENT Exam ENT Exam: Mucous Membranes Moist - Respiratory Exam Respiratory Exam: Decreased Breath Sounds, Rales, NORMAL BREATHING PATTERN - Cardiovascular Exam Cardiovascular Exam: RRR, +S1, +S2 Additional comments: ICD surgical site clean, dry, and intact. - GI/Abdominal Exam GI & Abdominal Exam: Normal Bowel Sounds, Soft. absent: Tenderness - Extremities Exam Extremities exam: Negative for: calf tenderness, pedal edema - Neurological Exam Neurological exam: Alert - Skin Skin Exam: Intact, Normal Color, Warm Results - Vital Signs Recent Vital Signs: Last Vital Signs Temp 98.0 F 08/23/16 04:00 Pulse 84 08/23/16 06:00 Resp 18 08/23/16 06:00 BP 118/63 08/23/16 11:08 Pulse Ox 99 08/23/16 06:00 - Labs Result Diagrams: 08/24/16 06:03 08/24/16 06:03 Labs: Laboratory Results - last 24 hr 08/22/16 08/22/16 08/22/16 13:11 14:29 17:40 WBC RBC Hgb Hct MCV MCH MCHC RDW Plt Count MPV Neut % (Auto) Lymph % (Auto) [place] % (Auto) Eos % (Auto) Baso % (Auto) Neut # Lymph # [place] # Eos # Baso # Puncture Site pCO2 pO2 HCO3 ABG pH ABG Total CO2 ABG O2 Saturation ABG Base Excess Gael Test ABG Potassium A-a O2 Difference Respiratory Index Sodium Chloride Glucose Lactate FiO2 Inspiratory BiPAP Expiratory BiPAP Potassium Carbon Dioxide Anion Gap BUN Creatinine Est GFR ( Amer) Est GFR (Non-Af Amer) POC Glucose (mg/dL) 98 197 H Random Glucose Calcium Phosphorus Magnesium Total Bilirubin AST ALT Alkaline Phosphatase Total Creatine Kinase 34 CK-MB (Mass) 0.86 Troponin I, Quant < 0.0120 Total Protein Albumin Globulin Albumin/Globulin Ratio Arterial Blood Potassium 08/22/16 08/22/16 08/22/16 18:35 22:29 22:34 WBC RBC Hgb Hct MCV MCH MCHC RDW Plt Count MPV Neut % (Auto) Lymph % (Auto) [place] % (Auto) Eos % (Auto) Baso % (Auto) Neut # Lymph # [place] # Eos # Baso # Puncture Site Lba pCO2 41 pO2 415 H HCO3 23.3 ABG pH 7.36 ABG Total CO2 24.5 ABG O2 Saturation 99.8 H ABG Base Excess -2.2 L Gael Test Na ABG Potassium 3.9 A-a O2 Difference 247.0 Respiratory Index 0.6 Sodium 137.0 Chloride 106.0 Glucose 125 H Lactate 1.6 FiO2 100.0 Inspiratory BiPAP 20 Expiratory BiPAP 10 Potassium Carbon Dioxide Anion Gap BUN Creatinine Est GFR ( Amer) Est GFR (Non-Af Amer) POC Glucose (mg/dL) 103 Random Glucose Calcium Phosphorus Magnesium Total Bilirubin AST ALT Alkaline Phosphatase Total Creatine Kinase 40 CK-MB (Mass) 1.32 Troponin I, Quant 0.0310 Total Protein Albumin Globulin Albumin/Globulin Ratio Arterial Blood Potassium 3.9 08/23/16 08/23/16 08/23/16 06:53 06:53 07:12 WBC 11.9 H D RBC 4.02 Hgb 9.3 L Hct 29.1 L MCV 72.3 L MCH 23.1 L MCHC 31.9 L RDW 19.6 H Plt Count 278 MPV 9.7 Neut % (Auto) 71.2 Lymph % (Auto) 16.0 L [place] % (Auto) 10.9 H Eos % (Auto) 0.8 Baso % (Auto) 1.1 Neut # 8.5 H Lymph # 1.9 [place] # 1.3 H Eos # 0.1 Baso # 0.1 Puncture Site pCO2 pO2 HCO3 ABG pH ABG Total CO2 ABG O2 Saturation ABG Base Excess Gael Test ABG Potassium A-a O2 Difference Respiratory Index Sodium 136 Chloride 97 L Glucose Lactate FiO2 Inspiratory BiPAP Expiratory BiPAP Potassium 3.3 L Carbon Dioxide 28 Anion Gap 14 BUN 14 Creatinine 0.8 Est GFR ( Amer) > 60 Est GFR (Non-Af Amer) > 60 POC Glucose (mg/dL) 96 Random Glucose 97 Calcium 8.7 Phosphorus 3.1 Magnesium 1.5 L Total Bilirubin 1.4 H AST 22 ALT 12 Alkaline Phosphatase 94 Total Creatine Kinase 45 CK-MB (Mass) 1.74 Troponin I, Quant 0.0380 Total Protein 7.1 Albumin 3.6 Globulin 3.5 Albumin/Globulin Ratio 1.0 Arterial Blood Potassium 08/23/16 11:12 WBC RBC Hgb Hct MCV MCH MCHC RDW Plt Count MPV Neut % (Auto) Lymph % (Auto) [place] % (Auto) Eos % (Auto) Baso % (Auto) Neut # Lymph # [place] # Eos # Baso # Puncture Site pCO2 pO2 HCO3 ABG pH ABG Total CO2 ABG O2 Saturation ABG Base Excess Gael Test ABG Potassium A-a O2 Difference Respiratory Index Sodium Chloride Glucose Lactate FiO2 Inspiratory BiPAP Expiratory BiPAP Potassium Carbon Dioxide Anion Gap BUN Creatinine Est GFR ( Amer) Est GFR (Non-Af Amer) POC Glucose (mg/dL) 102 Random Glucose Calcium Phosphorus Magnesium Total Bilirubin AST ALT Alkaline Phosphatase Total Creatine Kinase CK-MB (Mass) Troponin I, Quant Total Protein Albumin Globulin Albumin/Globulin Ratio Arterial Blood Potassium Assessment & Plan (1) CHF (congestive heart failure) Assessment and Plan: BNP 3540 on admission BP stable Continue current medical management and diuresis Status: Acute <Iraida Gustafson - Last Filed: 09/30/16 12:04> Results - Vital Signs Recent Vital Signs: Last Vital Signs Temp 97.8 F 08/29/16 00:00 Pulse 71 08/29/16 00:00 Resp 18 08/29/16 00:00 BP 106/66 08/29/16 10:29 Pulse Ox 98 08/29/16 00:00 - Labs Result Diagrams: 08/29/16 08:09 08/29/16 08:09 Attending/Attestation - Attestation I have personally seen and examined this patient.: Yes I have fully participated in the care of the patient.: Yes I have reviewed all pertinent clinical information: Yes Notes (Text): 09/30/16 12:04 will interrogate icd non compliant with follow up and meds
--- NOTE | 2016-08-23 12:45 | CARD ---
APPROVED REPORT EKG Measurement Heart [id number] <Conclusion> Sinus rhythm with frequent premature ventricular complexes and premature atrial complexes Left axis deviation Inferior infarct, age undetermined Anteroseptal infarct, age undetermined Abnormal ECG
--- NOTE | 2016-08-23 12:45 | CARD ---
APPROVED REPORT EKG Measurement Heart [id number] [place] [id number] <Conclusion> Sinus rhythm with premature supraventricular complexes and with occasional premature ventricular complexes Left axis deviation Left bundle branch block Abnormal ECG
[2016-08-23] MEDS ORDERED: Iodixanol 320 mg/ml 150 ml Bottle IV ONE (15:40)
[2016-08-23] MEDS: Sodium Chloride 0.9% 1,000 ML IV SCH (18:33)
[2016-08-23] MEDS: Nitroglycerin 50mg in D5W 50 MG/250 ML BOTTLE IV SCH (18:33)
[2016-08-24 06:23] LABS: BASO # 0.1 K/uL (0.0-0.2); BASO % 1.8 % (0.0-2.0); EOS # 0.2 K/uL (0.0-0.7); EOS % 2.5 % (0.0-4.0); HEMATOCRIT 28.4 % (34.0-47.0); LYMPH # 2.5 K/uL (1.0-4.3); LYMPH % 31.2 % (20.0-40.0); MEAN CORPUSCULAR HEMOGLOBIN 23.9 pg (27.0-31.0); MEAN CORPUSCULAR HGB CONC 32.2 g/dL (33.0-37.0); MEAN PLATELET VOLUME 10.1 fL (7.2-11.7); MONO % 12.3 % (0.0-10.0); NRBC % 0.1 % (0.0-2.0); RED CELL DISTRIBUTION WIDTH 19.5 % (11.5-14.5); WHITE BLOOD COUNT 7.9 K/uL (4.8-10.8)
[2016-08-24 06:29] LABS: CHLORIDE 99 mmol/L (98-107); POTASSIUM 3.6 mmol/L (3.6-5.2); SODIUM 136 mmol/L (132-148)
[2016-08-24 06:31] LABS: GFR AFRICAN-AMERICAN > 60
[2016-08-24 06:32] LABS: ALKALINE PHOSPHATASE 97 U/L (38-126); ALT/SGPT 15 U/L (9-52); AST/SGOT 19 U/L (14-36); BLOOD UREA NITROGEN 16 mg/dL (7-17); CARBON DIOXIDE 27 mmol/L (22-30); GLUCOSE,RANDOM 101 mg/dL (65-105); PHOSPHOROUS 2.7 mg/dL (2.5-4.5); TOTAL PROTEIN 7.1 g/dL (6.3-8.3)
[2016-08-24 06:33] LABS: CALCIUM 8.4 mg/dl (8.6-10.4); MAGNESIUM 2.1 mg/dL (1.6-2.3)
--- NOTE | 2016-08-24 07:37 | CP.CCUPN ---
<Kasey James - Last Filed: 08/24/16 08:26> CCU Subjective - Physician Review Subjective (Free Text): 08/24/16 08:26 Patient seen and examined at bedside. Patient is AO X 2. No acute events overnight as per nursing. Tolerating NC this AM. For PCI at [facility] with Dr. Cunningham tomorrow 08/25. Stable for transfer to TELE. CCU Objective - Vital Signs / Intake & Output Vital Signs (Last 4 hours): Vital Signs Pulse Resp BP Pulse Ox 08/24/16 06:00 68 24 101/47 L 100 Intake and Output (Last 8hrs): Intake & Output 08/23/16 08/24/16 08/24/16 22:59 06:59 14:59 Intake Total 296 401 Output Total 185 985 Balance 111 -584 Weight 88 lb Intake: IV 50 Intake, IV Amount 146 181 Left Forearm 146 181 Oral 100 220 Output: Urine 185 985 Urethral (Hernandez) 185 985 Other: # Bowel Movements 0 0 - Physical Exam Head: Positive for: Atraumatic, Normocephalic Pupils: Positive for: PERRL Extroacular Muscles: Positive for: EOMI Conjunctiva: Positive for: Normal. Negative for: Injected, Icteric Mouth: Positive for: Moist Mucous Membranes Neck: Positive for: Normal Range of Motion Respiratory/Chest: Positive for: Rhonchi (R lung base). Negative for: Accessory Muscle Use Cardiovascular: Positive for: Regular Rate and Rhythm, Normal S1, S2, Other ( ICD placed in left chest). Negative for: Murmurs Abdomen: Positive for: Normal Bowel Sounds. Negative for: Tenderness Upper Extremity: Positive for: Normal Inspection. Negative for: Cyanosis, Edema Lower Extremity: Positive for: Normal Inspection. Negative for: Edema Neurological: Positive for: Speech Normal Skin: Positive for: Warm, Dry, Normal Color. Negative for: Rashes Psychiatric: Positive for: Alert. Negative for: Oriented x 3, Normal Insight, Normal Concentration - Medications Active Medications: Active Medications Generic Name Dose Route Start Last Admin Trade Name Freq PRN Reason Stop Dose Admin Alprazolam 0.5 mg 08/22/16 12:15 08/23/16 23:36 Xanax PO 0.5 mg Q12 PRN Administration Anxiety Aspirin 81 mg 08/23/16 10:00 08/23/16 10:58 Aspirin Chewable PO 81 mg DAILY BLAKE Administration Carvedilol 6.25 mg 08/22/16 18:00 08/23/16 18:32 Coreg PO Not Given BID BLAKE Clopidogrel Bisulfate 75 mg 08/23/16 10:00 08/23/16 10:56 Plavix PO 75 mg DAILY BLAKE Administration Famotidine 20 mg 08/23/16 10:00 08/23/16 10:55 Pepcid PO 20 mg DAILY BLAKE Administration Ferrous Sulfate 325 mg 08/22/16 18:00 08/23/16 18:32 Feosol PO 325 mg BID BLAKE Administration Furosemide 40 mg 08/22/16 22:00 08/23/16 22:10 Lasix IVP 40 mg Q12 BLAKE Administration Heparin Sodium (Porcine) 5,000 units 08/22/16 22:00 08/23/16 22:07 Heparin SC 5,000 units Q12 BLAKE Administration Nitroglycerin/Dextrose 50 mg in 250 mls @ 1.5 mls/hr 08/22/16 17:00 08/23/16 18:33 Nitroglycerin 50 Mg/250 Ml D5w IV Not Given .Q24H BLAKE Protocol 5 MCG/MIN Sodium Chloride 1,000 mls @ 20 mls/hr 08/22/16 19:00 08/23/16 18:33 Sodium Chloride 0.9% IV Not Given .Q24H BLAKE Insulin Aspart 0 unit 08/22/16 16:30 08/23/16 22:11 Novolog SC Not Given ACHS [facility] Protocol Rosuvastatin Calcium 5 mg 08/22/16 22:00 08/23/16 22:08 Crestor PO 5 mg HS BLAKE Administration - Patient Studies Lab Studies: Lab Studies 08/24/16 08/24/16 08/24/16 Range/Units 07:28 06:03 06:03 WBC 7.9 (4.8-10.8) K/uL RBC 3.83 (3.80-5.20) Mil/uL Hgb 9.2 L (11.0-16.0) g/dL Hct 28.4 L (34.0-47.0) % MCV 74.0 L (81.0-99.0) fL MCH 23.9 L (27.0-31.0) pg MCHC 32.2 L (33.0-37.0) g/dL RDW 19.5 H (11.5-14.5) % Plt Count 260 (130-400) K/uL MPV 10.1 (7.2-11.7) fL Neut % (Auto) 52.2 (50.0-75.0) % Lymph % (Auto) 31.2 (20.0-40.0) % [place] % (Auto) 12.3 H (0.0-10.0) % Eos % (Auto) 2.5 (0.0-4.0) % Baso % (Auto) 1.8 (0.0-2.0) % Neut # 4.1 (1.8-7.0) K/uL Lymph # 2.5 (1.0-4.3) K/uL [place] # 1.0 H (0.0-0.8) K/uL Eos # 0.2 (0.0-0.7) K/uL Baso # 0.1 (0.0-0.2) K/uL Sodium 136 (132-148) mmol/L Potassium 3.6 (3.6-5.2) mmol/L Chloride 99 (98-107) mmol/L Carbon Dioxide 27 (22-30) mmol/L Anion Gap 14 (10-20) BUN 16 (7-17) mg/dL Creatinine 0.8 (0.7-1.2) MG/DL Est GFR ( Amer) > 60 Est GFR (Non-Af Amer) > 60 POC Glucose (mg/dL) 107 (65-110) mg/dL Random Glucose 101 (65-105) mg/dL Calcium 8.4 L (8.6-10.4) mg/dl Phosphorus 2.7 (2.5-4.5) mg/dL Magnesium 2.1 (1.6-2.3) mg/dL Total Bilirubin 1.0 (0.2-1.3) mg/dL AST 19 (14-36) U/L ALT 15 (9-52) U/L Alkaline Phosphatase 97 (38-126) U/L Total Protein 7.1 (6.3-8.3) g/dL Albumin 3.6 (3.5-5.0) g/dL Globulin 3.5 (2.2-3.9) gm/dL Albumin/Globulin Ratio 1.0 (1.0-2.1) 08/23/16 08/23/16 08/23/16 Range/Units 21:13 16:05 11:12 WBC (4.8-10.8) K/uL RBC (3.80-5.20) Mil/uL Hgb (11.0-16.0) g/dL Hct (34.0-47.0) % MCV (81.0-99.0) fL MCH (27.0-31.0) pg MCHC (33.0-37.0) g/dL RDW (11.5-14.5) % Plt Count (130-400) K/uL MPV (7.2-11.7) fL Neut % (Auto) (50.0-75.0) % Lymph % (Auto) (20.0-40.0) % [place] % (Auto) (0.0-10.0) % Eos % (Auto) (0.0-4.0) % Baso % (Auto) (0.0-2.0) % Neut # (1.8-7.0) K/uL Lymph # (1.0-4.3) K/uL [place] # (0.0-0.8) K/uL Eos # (0.0-0.7) K/uL Baso # (0.0-0.2) K/uL Sodium (132-148) mmol/L Potassium (3.6-5.2) mmol/L Chloride (98-107) mmol/L Carbon Dioxide (22-30) mmol/L Anion Gap (10-20) BUN (7-17) mg/dL Creatinine (0.7-1.2) MG/DL Est GFR ( Amer) Est GFR (Non-Af Amer) POC Glucose (mg/dL) 116 H 115 H 102 (65-110) mg/dL Random Glucose (65-105) mg/dL Calcium (8.6-10.4) mg/dl Phosphorus (2.5-4.5) mg/dL Magnesium (1.6-2.3) mg/dL Total Bilirubin (0.2-1.3) mg/dL AST (14-36) U/L ALT (9-52) U/L Alkaline Phosphatase (38-126) U/L Total Protein (6.3-8.3) g/dL Albumin (3.5-5.0) g/dL Globulin (2.2-3.9) gm/dL Albumin/Globulin Ratio (1.0-2.1) Laboratory Results - last 24 hr 08/23/16 08/23/16 08/23/16 11:12 16:05 21:13 WBC RBC Hgb Hct MCV MCH MCHC RDW Plt Count MPV Neut % (Auto) Lymph % (Auto) [place] % (Auto) Eos % (Auto) Baso % (Auto) Neut # Lymph # [place] # Eos # Baso # Sodium Potassium Chloride Carbon Dioxide Anion Gap BUN Creatinine Est GFR ( Amer) Est GFR (Non-Af Amer) POC Glucose (mg/dL) 102 115 H 116 H Random Glucose Calcium Phosphorus Magnesium Total Bilirubin AST ALT Alkaline Phosphatase Total Protein Albumin Globulin Albumin/Globulin Ratio 08/24/16 08/24/16 08/24/16 06:03 06:03 07:28 WBC 7.9 RBC 3.83 Hgb 9.2 L Hct 28.4 L MCV 74.0 L MCH 23.9 L MCHC 32.2 L RDW 19.5 H Plt Count 260 MPV 10.1 Neut % (Auto) 52.2 Lymph % (Auto) 31.2 [place] % (Auto) 12.3 H Eos % (Auto) 2.5 Baso % (Auto) 1.8 Neut # 4.1 Lymph # 2.5 [place] # 1.0 H Eos # 0.2 Baso # 0.1 Sodium 136 Potassium 3.6 Chloride 99 Carbon Dioxide 27 Anion Gap 14 BUN 16 Creatinine 0.8 Est GFR ( Amer) > 60 Est GFR (Non-Af Amer) > 60 POC Glucose (mg/dL) 107 Random Glucose 101 Calcium 8.4 L Phosphorus 2.7 Magnesium 2.1 Total Bilirubin 1.0 AST 19 ALT 15 Alkaline Phosphatase 97 Total Protein 7.1 Albumin 3.6 Globulin 3.5 Albumin/Globulin Ratio 1.0 Fingerstick Blood Sugar Results: 116 Review of Systems - Review of Systems Systems not reviewed;Unavailable: Dementia Assessment/Plan - Assessment and Plan (Free Text) Assessment: 81F PMHx significant for A.fib, HTN, DM, COPD, CHF, and RA presenting with SOB Plan: Neuro -Patient has hx of dementia and is AO x 1 -Xanax 0.5mg po q12 -no acute issues Cardiovascular -PCI at [facility] with Dr. Cunningham tomorrow 08/25 -acute on chronic systolic heart failure -ECHO 08/02/16 - suboptimal study. LVEF approximately 35%, septum appears akinetic and dyskinetic, moderate pulmonary hypertension -Echo- 06/25/16- Systolic function is mildly impaired, EF- 40-45%. Akinesis and thinning of basal and mid inferior wall and septal wall segments (both anterior and inferior)indicative of prior [place]. LA moderately dilated. RA mildly dilated. AV moderately sclerotic. Mod tricuspid regurg (please see full report) -Cardiac cath 08/11/16 - left main patent, LAD has eccentric calcification of the mid vessel. 80% stenosis of the mid vessel with a hazy opacity in the mid. Left circumflex has 50% stenosis in proximal vessel. RCA has a widely patent stent and eccentric calcification in the distal vessel. LVEF is 35%. -Patient for angioplasty with Dr. Cunningham at [facility] today 08/23 -ICD placed by Dr. Gustafson 08/16/16. Site is [facility]. -NEO neg x1 -BNP 3540 -ASA 81mg po daily -Coreg 6.25mg PO BID -Plavix 75mg PO Daily -Crestor 5mg po hs -Lasix 40mg IVP Q12 -Nitro gtt -Dr Cunningham cardiology -Dr Gustafson cardiology Pulmonology -Hx of respiratory distress -on BiPAP due to hypoxemia -Patient was intubated and required ventilatory support on prior admission until (08/05/16) -CTA negative for PE GI -no acute issues Renal -no acute issues -Lasix 40mg ivp q12 Heme -Hgb 9.3 -Ferrous sulfate 325mg PO BID -D dimer 801 -CTA negative for PE Endo -Hx DM2 -RISS -Accucheck MSK -no acute issues DVT ppx: SCDs; Heparin 5000u sc q12 GI ppx: Pepcid 20mg PO qd. Code status: full code Palliative care consult Dispo: stable for transfer to [facility] Case discussed with Dr. Allen James PGY2 <Rustam Villa - Last Filed: 08/24/16 16:37> CCU Objective - Vital Signs / Intake & Output Vital Signs (Last 4 hours): Vital Signs Pulse Resp BP Pulse Ox 08/24/16 15:21 67 28 H 101/57 L 99 08/24/16 14:21 65 26 H 97/49 L 98 08/24/16 13:23 70 29 H 95/53 L 99 08/24/16 13:20 69 29 H 99 Intake and Output (Last 8hrs): Intake & Output 08/24/16 08/24/16 08/24/16 06:59 14:59 22:59 Intake Total 401 350 Output Total 985 700 Balance -584 -350 Intake: IV 0 Intake, IV Amount 181 Left Forearm 181 Oral 220 350 Output: Urine 985 700 Urethral (Hernandez) 985 700 Other: # Bowel Movements 0 0 - Medications Active Medications: Active Medications Generic Name Dose Route Start Last Admin Trade Name Freq PRN Reason Stop Dose Admin Alprazolam 0.5 mg 08/22/16 12:15 08/24/16 09:28 Xanax PO 0.5 mg Q12 PRN Administration Anxiety Aspirin 81 mg 08/23/16 10:00 08/24/16 09:55 Aspirin Chewable PO 81 mg DAILY BLAKE Administration Carvedilol 6.25 mg 08/22/16 18:00 08/24/16 09:55 Coreg PO 6.25 mg BID BLAKE Administration Clopidogrel Bisulfate 75 mg 08/23/16 10:00 08/24/16 09:55 Plavix PO 75 mg DAILY BLAKE Administration Famotidine 20 mg 08/23/16 10:00 08/24/16 09:55 Pepcid PO 20 mg DAILY BLAKE Administration Ferrous Sulfate 325 mg 08/22/16 18:00 08/24/16 09:55 Feosol PO 325 mg BID BLAKE Administration Furosemide 40 mg 08/22/16 22:00 08/24/16 09:55 Lasix IVP 40 mg Q12 BLAKE Administration Heparin Sodium (Porcine) 5,000 units 08/22/16 22:00 08/24/16 09:55 Heparin SC 5,000 units Q12 BLAKE Administration Nitroglycerin/Dextrose 50 mg in 250 mls @ 1.5 mls/hr 08/22/16 17:00 08/23/16 18:33 Nitroglycerin 50 Mg/250 Ml D5w IV Not Given .Q24H [facility] Protocol 5 MCG/MIN Sodium Chloride 1,000 mls @ 20 mls/hr 08/22/16 19:00 08/23/16 18:33 Sodium Chloride 0.9% IV Not Given .Q24H BLAKE Insulin Aspart 0 unit 08/22/16 16:30 08/24/16 13:36 Novolog SC Not Given ACHS [facility] Protocol Rosuvastatin Calcium 5 mg 08/22/16 22:00 08/23/16 22:08 Crestor PO 5 mg HS BLAKE Administration - Patient Studies Lab Studies: Microbiology Studies 08/22/16 Unknown MRSA Culture (Admit) - Final Naris MRSA NOT DETECTED Lab Studies 08/24/16 08/24/16 08/24/16 Range/Units 11:17 07:28 06:03 WBC (4.8-10.8) K/uL RBC (3.80-5.20) Mil/uL Hgb (11.0-16.0) g/dL Hct (34.0-47.0) % MCV (81.0-99.0) fL MCH (27.0-31.0) pg MCHC (33.0-37.0) g/dL RDW (11.5-14.5) % Plt Count (130-400) K/uL MPV (7.2-11.7) fL Neut % (Auto) (50.0-75.0) % Lymph % (Auto) (20.0-40.0) % [place] % (Auto) (0.0-10.0) % Eos % (Auto) (0.0-4.0) % Baso % (Auto) (0.0-2.0) % Neut # (1.8-7.0) K/uL Lymph # (1.0-4.3) K/uL [place] # (0.0-0.8) K/uL Eos # (0.0-0.7) K/uL Baso # (0.0-0.2) K/uL Sodium 136 (132-148) mmol/L Potassium 3.6 (3.6-5.2) mmol/L Chloride 99 (98-107) mmol/L Carbon Dioxide 27 (22-30) mmol/L Anion Gap 14 (10-20) BUN 16 (7-17) mg/dL Creatinine 0.8 (0.7-1.2) MG/DL Est GFR ( Amer) > 60 Est GFR (Non-Af Amer) > 60 POC Glucose (mg/dL) 155 H 107 (65-110) mg/dL Random Glucose 101 (65-105) mg/dL Calcium 8.4 L (8.6-10.4) mg/dl Phosphorus 2.7 (2.5-4.5) mg/dL Magnesium 2.1 (1.6-2.3) mg/dL Total Bilirubin 1.0 (0.2-1.3) mg/dL AST 19 (14-36) U/L ALT 15 (9-52) U/L Alkaline Phosphatase 97 (38-126) U/L Total Protein 7.1 (6.3-8.3) g/dL Albumin 3.6 (3.5-5.0) g/dL Globulin 3.5 (2.2-3.9) gm/dL Albumin/Globulin Ratio 1.0 (1.0-2.1) 08/24/16 08/23/16 Range/Units 06:03 21:13 WBC 7.9 (4.8-10.8) K/uL RBC 3.83 (3.80-5.20) Mil/uL Hgb 9.2 L (11.0-16.0) g/dL Hct 28.4 L (34.0-47.0) % MCV 74.0 L (81.0-99.0) fL MCH 23.9 L (27.0-31.0) pg MCHC 32.2 L (33.0-37.0) g/dL RDW 19.5 H (11.5-14.5) % Plt Count 260 (130-400) K/uL MPV 10.1 (7.2-11.7) fL Neut % (Auto) 52.2 (50.0-75.0) % Lymph % (Auto) 31.2 (20.0-40.0) % [place] % (Auto) 12.3 H (0.0-10.0) % Eos % (Auto) 2.5 (0.0-4.0) % Baso % (Auto) 1.8 (0.0-2.0) % Neut # 4.1 (1.8-7.0) K/uL Lymph # 2.5 (1.0-4.3) K/uL [place] # 1.0 H (0.0-0.8) K/uL Eos # 0.2 (0.0-0.7) K/uL Baso # 0.1 (0.0-0.2) K/uL Sodium (132-148) mmol/L Potassium (3.6-5.2) mmol/L Chloride (98-107) mmol/L Carbon Dioxide (22-30) mmol/L Anion Gap (10-20) BUN (7-17) mg/dL Creatinine (0.7-1.2) MG/DL Est GFR ( Amer) Est GFR (Non-Af Amer) POC Glucose (mg/dL) 116 H (65-110) mg/dL Random Glucose (65-105) mg/dL Calcium (8.6-10.4) mg/dl Phosphorus (2.5-4.5) mg/dL Magnesium (1.6-2.3) mg/dL Total Bilirubin (0.2-1.3) mg/dL AST (14-36) U/L ALT (9-52) U/L Alkaline Phosphatase (38-126) U/L Total Protein (6.3-8.3) g/dL Albumin (3.5-5.0) g/dL Globulin (2.2-3.9) gm/dL Albumin/Globulin Ratio (1.0-2.1) Laboratory Results - last 24 hr 08/23/16 08/24/16 08/24/16 21:13 06:03 06:03 WBC 7.9 RBC 3.83 Hgb 9.2 L Hct 28.4 L MCV 74.0 L MCH 23.9 L MCHC 32.2 L RDW 19.5 H Plt Count 260 MPV 10.1 Neut % (Auto) 52.2 Lymph % (Auto) 31.2 [place] % (Auto) 12.3 H Eos % (Auto) 2.5 Baso % (Auto) 1.8 Neut # 4.1 Lymph # 2.5 [place] # 1.0 H Eos # 0.2 Baso # 0.1 Sodium 136 Potassium 3.6 Chloride 99 Carbon Dioxide 27 Anion Gap 14 BUN 16 Creatinine 0.8 Est GFR ( Amer) > 60 Est GFR (Non-Af Amer) > 60 POC Glucose (mg/dL) 116 H Random Glucose 101 Calcium 8.4 L Phosphorus 2.7 Magnesium 2.1 Total Bilirubin 1.0 AST 19 ALT 15 Alkaline Phosphatase 97 Total Protein 7.1 Albumin 3.6 Globulin 3.5 Albumin/Globulin Ratio 1.0 08/24/16 08/24/16 07:28 11:17 WBC RBC Hgb Hct MCV MCH MCHC RDW Plt Count MPV Neut % (Auto) Lymph % (Auto) [place] % (Auto) Eos % (Auto) Baso % (Auto) Neut # Lymph # [place] # Eos # Baso # Sodium Potassium Chloride Carbon Dioxide Anion Gap BUN Creatinine Est GFR ( Amer) Est GFR (Non-Af Amer) POC Glucose (mg/dL) 107 155 H Random Glucose Calcium Phosphorus Magnesium Total Bilirubin AST ALT Alkaline Phosphatase Total Protein Albumin Globulin Albumin/Globulin Ratio Attending/Attestation - Attestation I have personally seen and examined this patient.: Yes I have fully participated in the care of the patient.: Yes I have reviewed all pertinent clinical information: Yes Notes (Text): 08/24/16 16:37 patient seen and examined in the intensive care unit. Case discussed with house staff in the morning rounds. Stable for transfer to the floor
--- NOTE | 2016-08-24 07:42 | CP.PCM.PN ---
Subjective - Date & Time of Evaluation Date of Evaluation: 08/24/16 Time of Evaluation: 07:00 - Subjective Subjective: PGY2 Medicine Note - Dr. Beck's Service Patient seen and examined this AM. No overnight events per nursing. Patient is resting comfortably. Plan is for PCI stent placement at [facility] tomorrow, however patient was not comfortable signing EMTALA form. She is AAOx2 today (aware of person/place, however she thought it was 2015). She understands the need for this procedure. I spoke to the daughter, who will have a family meeting and possibly consent to the procedure over the phone, after speaking with her mother. Objective - Vital Signs/Intake and Output Vital Signs (last 24 hours): Temp Pulse Resp BP Pulse Ox 98.3 F 68 24 101/47 L 100 08/24/16 00:00 08/24/16 06:00 08/24/16 06:00 08/24/16 06:00 08/24/16 06:00 Intake and Output: 08/24/16 08/24/16 06:59 18:59 Intake Total 461 Output Total 1085 Balance -624 - Medications Medications: Current Medications Alprazolam (Xanax) 0.5 mg PO Q12 PRN PRN Reason: Anxiety Last Admin: 08/23/16 23:36 Dose: 0.5 mg Aspirin (Aspirin Chewable) 81 mg PO DAILY [facility] Last Admin: 08/23/16 10:58 Dose: 81 mg Carvedilol (Coreg) 6.25 mg PO BID [facility] Last Admin: 08/23/16 18:32 Dose: Not Given Clopidogrel Bisulfate (Plavix) 75 mg PO DAILY [facility] Last Admin: 08/23/16 10:56 Dose: 75 mg Famotidine (Pepcid) 20 mg PO DAILY [facility] Last Admin: 08/23/16 10:55 Dose: 20 mg Ferrous Sulfate (Feosol) 325 mg PO BID [facility] Last Admin: 08/23/16 18:32 Dose: 325 mg Furosemide (Lasix) 40 mg IVP Q12 [facility] Last Admin: 08/23/16 22:10 Dose: 40 mg Heparin Sodium (Porcine) (Heparin) 5,000 units SC Q12 [facility] Last Admin: 08/23/16 22:07 Dose: 5,000 units Nitroglycerin/Dextrose (Nitroglycerin 50 Mg/250 Ml D5w) 50 mg in 250 mls @ 1.5 mls/hr IV .Q24H BLAKE; 5 MCG/MIN PRN Reason: Protocol Last Admin: 08/23/16 18:33 Dose: Not Given Sodium Chloride (Sodium Chloride 0.9%) 1,000 mls @ 20 mls/hr IV .Q24H [facility] Last Admin: 08/23/16 18:33 Dose: Not Given Insulin Aspart (Novolog) 0 unit SC ACHS [facility] PRN Reason: Protocol Last Admin: 08/23/16 22:11 Dose: Not Given Rosuvastatin Calcium (Crestor) 5 mg PO HS [facility] Last Admin: 08/23/16 22:08 Dose: 5 mg - Labs Labs: 08/24/16 06:03 08/24/16 06:03 - Additional Findings Additional findings: - Constitutional Appears: Non-toxic, No Acute Distress - Head Exam Head Exam: ATRAUMATIC, NORMOCEPHALIC - Eye Exam Eye Exam: EOMI - ENT Exam ENT Exam: Mucous Membranes Moist Additional comments: poor dentition - Respiratory Exam Respiratory Exam: Rhonchi (improving), NORMAL BREATHING PATTERN - Cardiovascular Exam Cardiovascular Exam: +S1, +S2 Additional comments: ICD left side chest, site is CDI - GI/Abdominal Exam GI & Abdominal Exam: Soft, Normal Bowel Sounds. absent: Tenderness - Extremities Exam Extremities Exam: absent: Pedal Edema - Neurological Exam Neurological Exam: Alert, Awake - Psychiatric Exam Psychiatric exam: Normal Affect, Normal Mood - Skin Skin Exam: Dry, Warm Assessment and Plan - Assessment and Plan (Free Text) Assessment: Acute on chronic combined systolic and diastolic congestive heart failure 08/24: AAOx2- Plan is for PCI stent placement at [facility] tomorrow, EMTALA form completed, awaiting family meeting for daughter's consent. 08/23: Patient has stenosis of the LAD - Planning in process for transfer alternate facility for cardiac stent placement with Dr. Cunningham. -prior admissin: ECHO 08/02/16 - suboptimal study. LVEF approximately 35%, septum appears akinetic and dyskinetic, moderate pulmonary hypertension -Echo- 06/25/16- Systolic function is mildly impaired, EF- 40-45%. Akinesis and thinning of basal and mid inferior wall and septal wall segments (both anterior and inferior)indicative of prior [place]. LA moderately dilated. RA mildly dilated. AV moderately sclerotic. Mod tricuspid regurg (please see full report) -ICD placed by Dr. Gustafson 08/16/16. Site is [facility]. -NEO neg x1 -BNP 3540 -f/u NEO + EKG 1400, 2100 -Continue Coreg 6.25mg PO BID -Continue Plavix 75mg PO Daily -Lasix 40mg IVP [id number] -Continue Asa 81mg PO Daily -Cardiology consulted, Dr. Cunningham (prior stents) + Dr. Gustafson (recent ICD placement); help appreciated CAD 08/24: AAOx2- Plan is for PCI stent placement at [facility] tomorrow, EMTALA form completed, awaiting family meeting for daughter's consent. 08/23: Patient has stenosis of the LAD - Planning in process for transfer alternate facility for cardiac stent placement with Dr. Cunningham. -s/p ICD 08/16, ICD interrogated, functioning well. Pt was to follow up with Dr. Gustafson this week for wound check -consult cardio, Dr. Cunningham, f/u recs -recent cardiac cath shows severe LV dysfunction with EF of 35%. -f/u NEO + EKG 1400, 2100 -ECHO 08/02/16 - suboptimal study. LVEF approximately 35%, septum appears akinetic and dyskinetic, moderate pulmonary hypertension -Cardiac cath 08/11/16 - left main patent, LAD has eccentric calcification of the mid vessel. 80% stenosis of the mid vessel with a hazy opacity in the mid. Left circumflex has 50% stenosis in proximal vessel. RCA has a widely patent stent and eccentric calcification in the distal vessel. LVEF is 35%. -Dr. Cunningham plan in prior note, possible PCI for Mid LAD, however patient refused at that time. Respiratory Failure 08/23: patient being monitored in ICU. Patient needed BiPAP overnight but is on NC this AM and satting well. 08/22: CT chest - small b/l effusion R>L; small nodules in lung apicies. Hypoxemia on admission Patient was intubated and required ventilatory support on prior admission until (08/05/16) BIPAP Continue cardiac medications below. Hx Vtach - vtach last week while inpatient. - currently stable Anemia 08/23-08/24: Hgb 9's; stable Hgb 9.7 -Continue ferrous sulfate 325mg PO BID Anxiety -Xanax 0.5mg PO Q12H PRN Hx Hypotension Currently stable. Continue to monitor. Hx Diabetes -Novolog ISS - low dose -accuchecks achs Prophylactic Measure -SCDs -Pepcid 20mg PO qd. -Rosuvastatin Calcium (Crestor) 5 mg PO HS BLAKE -heparin 5k sc Q12H All medical management as per Dr. Beck.
[2016-08-24] MEDS: (Novolog) Insulin Aspart, Recombinant 100 u/ml 10 ml vial SC SCH ×4 (09:55→23:59)
--- NOTE | 2016-08-24 10:42 | CP.PCM.PN ---
<Jaquan Plascencia - Last Filed: 08/24/16 10:39> Subjective - Date & Time of Evaluation Date of Evaluation: 08/24/16 Time of Evaluation: 10:39 - Subjective Subjective: Progress Note for Dr. Gustafson Pt seen and examined at bedside. Pt resting comfortably in bed. No acute events overnight as per nursing. Pt denies any CP, SOB, N/V/D. Objective - Vital Signs/Intake and Output Vital Signs (last 24 hours): Temp Pulse Resp BP Pulse Ox 98.3 F 68 24 102/55 L 100 08/24/16 00:00 08/24/16 06:00 08/24/16 06:00 08/24/16 09:55 08/24/16 06:00 Intake and Output: 08/24/16 08/24/16 06:59 18:59 Intake Total 461 Output Total 1085 Balance -624 - Medications Medications: Current Medications Alprazolam (Xanax) 0.5 mg PO Q12 PRN PRN Reason: Anxiety Last Admin: 08/24/16 09:28 Dose: 0.5 mg Aspirin (Aspirin Chewable) 81 mg PO DAILY [facility] Last Admin: 08/24/16 09:55 Dose: 81 mg Carvedilol (Coreg) 6.25 mg PO BID [facility] Last Admin: 08/24/16 09:55 Dose: 6.25 mg Clopidogrel Bisulfate (Plavix) 75 mg PO DAILY [facility] Last Admin: 08/24/16 09:55 Dose: 75 mg Famotidine (Pepcid) 20 mg PO DAILY [facility] Last Admin: 08/24/16 09:55 Dose: 20 mg Ferrous Sulfate (Feosol) 325 mg PO BID [facility] Last Admin: 08/24/16 09:55 Dose: 325 mg Furosemide (Lasix) 40 mg IVP Q12 [facility] Last Admin: 08/24/16 09:55 Dose: 40 mg Heparin Sodium (Porcine) (Heparin) 5,000 units SC Q12 [facility] Last Admin: 08/24/16 09:55 Dose: 5,000 units Nitroglycerin/Dextrose (Nitroglycerin 50 Mg/250 Ml D5w) 50 mg in 250 mls @ 1.5 mls/hr IV .Q24H [facility]; 5 MCG/MIN PRN Reason: Protocol Last Admin: 08/23/16 18:33 Dose: Not Given Sodium Chloride (Sodium Chloride 0.9%) 1,000 mls @ 20 mls/hr IV .Q24H [facility] Last Admin: 08/23/16 18:33 Dose: Not Given Insulin Aspart (Novolog) 0 unit SC ACHS [facility] PRN Reason: Protocol Last Admin: 08/24/16 09:55 Dose: Not Given Rosuvastatin Calcium (Crestor) 5 mg PO HS [facility] Last Admin: 08/23/16 22:08 Dose: 5 mg - Labs Labs: 08/24/16 06:03 08/24/16 06:03 - Constitutional Appears: Non-toxic, No Acute Distress - Head Exam Head Exam: ATRAUMATIC, NORMAL INSPECTION, NORMOCEPHALIC - Respiratory Exam Respiratory Exam: Decreased Breath Sounds, NORMAL BREATHING PATTERN. absent: Rales, Rhonchi - Cardiovascular Exam Cardiovascular Exam: Irregular Rhythm, +S1, +S2 - GI/Abdominal Exam GI & Abdominal Exam: Soft, Normal Bowel Sounds. absent: Tenderness - Extremities Exam Extremities Exam: absent: Calf Tenderness, Pedal Edema - Neurological Exam Neurological Exam: Alert, Awake - Skin Skin Exam: Intact, Normal Color, Warm Assessment and Plan (1) CHF (congestive heart failure) Assessment & Plan: Will continue diuresis with Lasix 40 mg IV BID Will likely to lasix qd tomorrow Continue current medical management Status: Acute <Iraida Gustafson - Last Filed: 09/30/16 12:15> Objective - Vital Signs/Intake and Output Vital Signs (last 24 hours): Temp Pulse Resp BP Pulse Ox 97.8 F 71 18 106/66 98 08/29/16 00:00 08/29/16 00:00 08/29/16 00:00 08/29/16 10:29 08/29/16 00:00 - Labs Labs: 08/29/16 08:09 08/29/16 08:09 Attending/Attestation - Attestation I have personally seen and examined this patient.: Yes I have fully participated in the care of the patient.: Yes I have reviewed all pertinent clinical information, including history, physical exam and plan: Yes Notes (Text): 09/30/16 12:14 pt would benefit from added diuresis will change to po
[2016-08-24] MEDS: Nitroglycerin 50mg in D5W 50 MG/250 ML BOTTLE IV SCH (17:03)
[2016-08-24] MEDS: Sodium Chloride 0.9% 1,000 ML IV SCH (19:50)
[2016-08-25 06:46] LABS: BASO # 0.1 K/uL (0.0-0.2); BASO % 1.5 % (0.0-2.0); EOS # 0.2 K/uL (0.0-0.7); HEMATOCRIT 27.8 % (34.0-47.0); LYMPH # 2.2 K/uL (1.0-4.3); LYMPH % 29.5 % (20.0-40.0); MEAN CELL VOLUME 73.1 fL (81.0-99.0); MEAN CORPUSCULAR HEMOGLOBIN 23.5 pg (27.0-31.0); MEAN CORPUSCULAR HGB CONC 32.1 g/dL (33.0-37.0); MEAN PLATELET VOLUME 9.8 fL (7.2-11.7); MONO # 0.9 K/uL (0.0-0.8); MONO % 12.1 % (0.0-10.0); RED CELL DISTRIBUTION WIDTH 19.7 % (11.5-14.5); WHITE BLOOD COUNT 7.6 K/uL (4.8-10.8)
[2016-08-25 07:06] LABS: CHLORIDE 96 mmol/L (98-107); SODIUM 135 mmol/L (132-148)
[2016-08-25 07:07] LABS: POTASSIUM 3.6 mmol/L (3.6-5.2)
[2016-08-25 07:09] LABS: ALKALINE PHOSPHATASE 90 U/L (38-126); AST/SGOT 18 U/L (14-36); BILIRUBIN,TOTAL 0.8 mg/dL (0.2-1.3); BLOOD UREA NITROGEN 18 mg/dL (7-17); CARBON DIOXIDE 27 mmol/L (22-30); GFR AFRICAN-AMERICAN > 60; GLUCOSE,RANDOM 100 mg/dL (65-105); PHOSPHOROUS 3.3 mg/dL (2.5-4.5); TOTAL PROTEIN 7.1 g/dL (6.3-8.3)
[2016-08-25 07:10] LABS: CALCIUM 8.6 mg/dl (8.6-10.4); MAGNESIUM 1.8 mg/dL (1.6-2.3)
[2016-08-25 07:18] LABS: ALT/SGPT < 6 U/L (9-52)
--- NOTE | 2016-08-25 07:26 | CP.CCUPN ---
CCU Subjective - Physician Review Subjective (Free Text): 08/24/16 08:26 Patient seen and examined at bedside. Patient is AO X 2. No acute events overnight as per nursing. Tolerating NC this AM. For PCI [place] [facility] with [place]. Cunningham tomorrow 08/25. Stable for transfer to [facility]. CCU Objective - Vital Signs / Intake & Output Vital Signs (Last 4 hours): Vital Signs Temp Pulse Resp BP Pulse Ox 08/25/16 06:50 62 26 H 100 08/25/16 06:40 65 25 H 100 08/25/16 06:32 63 21 97/50 L 100 08/25/16 06:30 73 14 100 08/25/16 06:20 64 11 L 100 08/25/16 06:10 63 15 100 08/25/16 06:00 69 12 100 08/25/16 05:50 68 17 99 08/25/16 05:40 62 27 H 100 08/25/16 05:30 70 19 100 08/25/16 05:21 72 25 H 98/45 L 99 08/25/16 05:20 66 16 100 08/25/16 05:10 69 29 H 100 08/25/16 05:00 66 17 100 08/25/16 04:50 65 26 H 100 08/25/16 04:40 63 25 H 100 08/25/16 04:30 64 21 100 08/25/16 04:22 67 26 H 104/52 L 100 08/25/16 04:20 63 22 100 08/25/16 04:10 69 26 H 100 08/25/16 04:00 71 27 H 99 08/25/16 03:50 63 19 100 08/25/16 03:48 98.2 F 08/25/16 03:40 67 24 100 08/25/16 03:30 68 25 H 100 Intake and Output (Last 8hrs): Intake & Output 08/24/16 08/25/16 08/25/16 22:59 06:59 14:59 Intake Total 365.1 424 Output Total 425 625 Balance -59.9 -201 Intake: IV 315.1 184 Oral 50 240 Output: Urine 425 625 Urethral (Hernandez) 425 625 Other: # Bowel Movements 1 - Physical Exam Head: Positive for: Atraumatic, Normocephalic Pupils: Positive for: PERRL Extroacular Muscles: Positive for: EOMI Conjunctiva: Positive for: Normal. Negative for: Injected, Icteric Mouth: Positive for: Moist Mucous Membranes Neck: Positive for: Normal Range of Motion Respiratory/Chest: Positive for: Rhonchi (R lung base). Negative for: Accessory Muscle Use Cardiovascular: Positive for: Regular Rate and Rhythm, Normal S1, S2, Other ( ICD placed in left chest). Negative for: Murmurs Abdomen: Positive for: Normal Bowel Sounds. Negative for: Tenderness Upper Extremity: Positive for: Normal Inspection. Negative for: Cyanosis, Edema Lower Extremity: Positive for: Normal Inspection. Negative for: Edema Neurological: Positive for: Speech Normal Skin: Positive for: Warm, Dry, Normal Color. Negative for: Rashes Psychiatric: Positive for: Alert. Negative for: Oriented x 3, Normal Insight, Normal Concentration - Medications Active Medications: Active Medications Generic Name Dose Route Start Last Admin Trade Name Freq PRN Reason Stop Dose Admin Alprazolam 0.5 mg 08/22/16 12:15 08/24/16 21:18 Xanax PO 0.5 mg Q12 PRN Administration Anxiety Aspirin 81 mg 08/23/16 10:00 08/24/16 09:55 Aspirin Chewable PO 81 mg DAILY [facility] Administration Carvedilol 6.25 mg 08/22/16 18:00 08/24/16 18:10 Coreg PO 6.25 mg BID [facility] Administration Clopidogrel Bisulfate 75 mg 08/23/16 10:00 08/24/16 09:55 Plavix PO 75 mg DAILY [facility] Administration Famotidine 20 mg 08/23/16 10:00 08/24/16 09:55 Pepcid PO 20 mg DAILY [facility] Administration Ferrous Sulfate 325 mg 08/22/16 18:00 08/24/16 18:10 Feosol PO 325 mg BID [facility] Administration Furosemide 40 mg 08/22/16 22:00 08/24/16 21:18 Lasix IVP 40 mg Q12 [facility] Administration Heparin Sodium (Porcine) 5,000 units 08/22/16 22:00 08/24/16 21:18 Heparin SC 5,000 units Q12 [facility] Administration Nitroglycerin/Dextrose 50 mg in 250 mls @ 1.5 mls/hr 08/22/16 17:00 08/24/16 19:51 Nitroglycerin 50 Mg/250 Ml D5w IV 10 mcg/min .Q24H [facility] 3 mls/hr Protocol Titration 5 MCG/MIN Sodium Chloride 1,000 mls @ 20 mls/hr 08/22/16 19:00 08/24/16 19:50 Sodium Chloride 0.9% IV Not Given .Q24H [facility] Insulin Aspart 0 unit 08/22/16 16:30 08/24/16 23:59 Novolog SC Not Given ACHS [facility] Protocol Rosuvastatin Calcium 5 mg 08/22/16 22:00 08/24/16 21:18 Crestor PO 5 mg HS [facility] Administration - Patient Studies Lab Studies: Microbiology Studies 08/22/16 Unknown MRSA Culture (Admit) - Final Naris MRSA NOT DETECTED Lab Studies 08/25/16 08/25/16 08/24/16 Range/Units 06:31 06:31 21:13 WBC 7.6 (4.8-10.8) K/uL RBC 3.80 (3.80-5.20) Mil/uL Hgb 8.9 L (11.0-16.0) g/dL Hct 27.8 L (34.0-47.0) % MCV 73.1 L (81.0-99.0) fL MCH 23.5 L (27.0-31.0) pg MCHC 32.1 L (33.0-37.0) g/dL RDW 19.7 H (11.5-14.5) % Plt Count 251 (130-400) K/uL MPV 9.8 (7.2-11.7) fL Neut % (Auto) 53.9 (50.0-75.0) % Lymph % (Auto) 29.5 (20.0-40.0) % Alexander % (Auto) 12.1 H (0.0-10.0) % Eos % (Auto) 3.0 (0.0-4.0) % Baso % (Auto) 1.5 (0.0-2.0) % Neut # 4.1 (1.8-7.0) K/uL Lymph # 2.2 (1.0-4.3) K/uL Alexander # 0.9 H (0.0-0.8) K/uL Eos # 0.2 (0.0-0.7) K/uL Baso # 0.1 (0.0-0.2) K/uL Sodium 135 (132-148) mmol/L Potassium 3.6 (3.6-5.2) mmol/L Chloride 96 L (98-107) mmol/L Carbon Dioxide 27 (22-30) mmol/L Anion Gap 16 (10-20) BUN 18 H (7-17) mg/dL Creatinine 0.8 (0.7-1.2) MG/DL Est GFR ( Amer) > 60 Est GFR (Non-Af Amer) > 60 POC Glucose (mg/dL) 101 (65-110) mg/dL Random Glucose 100 (65-105) mg/dL Calcium 8.6 (8.6-10.4) mg/dl Phosphorus 3.3 (2.5-4.5) mg/dL Magnesium 1.8 (1.6-2.3) mg/dL Total Bilirubin 0.8 (0.2-1.3) mg/dL AST 18 (14-36) U/L ALT < 6 L D (9-52) U/L Alkaline Phosphatase 90 (38-126) U/L Total Protein 7.1 (6.3-8.3) g/dL Albumin 3.5 (3.5-5.0) g/dL Globulin 3.5 (2.2-3.9) gm/dL Albumin/Globulin Ratio 1.0 (1.0-2.1) 08/24/16 08/24/16 08/24/16 Range/Units 16:12 11:17 07:28 WBC (4.8-10.8) K/uL RBC (3.80-5.20) Mil/uL Hgb (11.0-16.0) g/dL Hct (34.0-47.0) % MCV (81.0-99.0) fL MCH (27.0-31.0) pg MCHC (33.0-37.0) g/dL RDW (11.5-14.5) % Plt Count (130-400) K/uL MPV (7.2-11.7) fL Neut % (Auto) (50.0-75.0) % Lymph % (Auto) (20.0-40.0) % Alexander % (Auto) (0.0-10.0) % Eos % (Auto) (0.0-4.0) % Baso % (Auto) (0.0-2.0) % Neut # (1.8-7.0) K/uL Lymph # (1.0-4.3) K/uL Alexander # (0.0-0.8) K/uL Eos # (0.0-0.7) K/uL Baso # (0.0-0.2) K/uL Sodium (132-148) mmol/L Potassium (3.6-5.2) mmol/L Chloride (98-107) mmol/L Carbon Dioxide (22-30) mmol/L Anion Gap (10-20) BUN (7-17) mg/dL Creatinine (0.7-1.2) MG/DL Est GFR ( Amer) Est GFR (Non-Af Amer) POC Glucose (mg/dL) 122 H 155 H 107 (65-110) mg/dL Random Glucose (65-105) mg/dL Calcium (8.6-10.4) mg/dl Phosphorus (2.5-4.5) mg/dL Magnesium (1.6-2.3) mg/dL Total Bilirubin (0.2-1.3) mg/dL AST (14-36) U/L ALT (9-52) U/L Alkaline Phosphatase (38-126) U/L Total Protein (6.3-8.3) g/dL Albumin (3.5-5.0) g/dL Globulin (2.2-3.9) gm/dL Albumin/Globulin Ratio (1.0-2.1) Laboratory Results - last 24 hr 08/24/16 08/24/16 08/24/16 07:28 11:17 16:12 WBC RBC Hgb Hct MCV MCH MCHC RDW Plt Count MPV Neut % (Auto) Lymph % (Auto) Alexander % (Auto) Eos % (Auto) Baso % (Auto) Neut # Lymph # Alexander # Eos # Baso # Sodium Potassium Chloride Carbon Dioxide Anion Gap BUN Creatinine Est GFR ( Amer) Est GFR (Non-Af Amer) POC Glucose (mg/dL) 107 155 H 122 H Random Glucose Calcium Phosphorus Magnesium Total Bilirubin AST ALT Alkaline Phosphatase Total Protein Albumin Globulin Albumin/Globulin Ratio 08/24/16 08/25/16 08/25/16 21:13 06:31 06:31 WBC 7.6 RBC 3.80 Hgb 8.9 L Hct 27.8 L MCV 73.1 L MCH 23.5 L MCHC 32.1 L RDW 19.7 H Plt Count 251 MPV 9.8 Neut % (Auto) 53.9 Lymph % (Auto) 29.5 Alexander % (Auto) 12.1 H Eos % (Auto) 3.0 Baso % (Auto) 1.5 Neut # 4.1 Lymph # 2.2 Alexander # 0.9 H Eos # 0.2 Baso # 0.1 Sodium 135 Potassium 3.6 Chloride 96 L Carbon Dioxide 27 Anion Gap 16 BUN 18 H Creatinine 0.8 Est GFR ( Amer) > 60 Est GFR (Non-Af Amer) > 60 POC Glucose (mg/dL) 101 Random Glucose 100 Calcium 8.6 Phosphorus 3.3 Magnesium 1.8 Total Bilirubin 0.8 AST 18 ALT < 6 L D Alkaline Phosphatase 90 Total Protein 7.1 Albumin 3.5 Globulin 3.5 Albumin/Globulin Ratio 1.0 Fingerstick Blood Sugar Results: 101 Critical Care Progress Note - Nutrition Nutrition: Nutrition Category Date Time Status NPO Diet [DIET] Diets 08/25/16 Breakfast Active
[2016-08-25] MEDS: (Novolog) Insulin Aspart, Recombinant 100 u/ml 10 ml vial SC SCH ×4 (07:30→22:02)
--- NOTE | 2016-08-25 10:02 | CP.PCM.PN ---
Subjective - Date & Time of Evaluation Date of Evaluation: 08/25/16 Time of Evaluation: 07:00 - Subjective Subjective: PGY2 Medicine Note - Dr. Beck's Service Patient seen and examined this AM. No overnight events per nursing. Patient is resting comfortably. Plan is for PCI stent placement at [facility] today. Patient felt more comfortable to day and signed EMTALA. She understands the need for this procedure. Patient is AAOx2, but is not sure if its 2016 or 2017. The daughter did not call the hospital back or respond to our phone calls. Objective - Vital Signs/Intake and Output Vital Signs (last 24 hours): Temp Pulse Resp BP Pulse Ox 98.2 F 62 26 H 102/56 L 100 08/25/16 03:48 08/25/16 06:50 08/25/16 06:50 08/25/16 09:26 08/25/16 06:50 Intake and Output: 08/25/16 08/25/16 06:59 18:59 Intake Total 647.1 46 Output Total 650 50 Balance -2.9 -4 - Medications Medications: Current Medications Alprazolam (Xanax) 0.5 mg PO Q12 PRN PRN Reason: Anxiety Last Admin: 08/25/16 09:26 Dose: 0.5 mg Aspirin (Aspirin Chewable) 81 mg PO DAILY [facility] Last Admin: 08/25/16 09:26 Dose: 81 mg Carvedilol (Coreg) 6.25 mg PO BID [facility] Last Admin: 08/25/16 09:26 Dose: 6.25 mg Clopidogrel Bisulfate (Plavix) 75 mg PO DAILY [facility] Last Admin: 08/25/16 09:26 Dose: 75 mg Famotidine (Pepcid) 20 mg PO DAILY [facility] Last Admin: 08/25/16 09:26 Dose: 20 mg Ferrous Sulfate (Feosol) 325 mg PO BID [facility] Last Admin: 08/25/16 09:26 Dose: 325 mg Furosemide (Lasix) 40 mg IVP Q12 [facility] Last Admin: 08/25/16 09:26 Dose: 40 mg Heparin Sodium (Porcine) (Heparin) 5,000 units SC Q12 [facility] Last Admin: 08/25/16 09:27 Dose: Not Given Nitroglycerin/Dextrose (Nitroglycerin 50 Mg/250 Ml D5w) 50 mg in 250 mls @ 1.5 mls/hr IV .Q24H [facility]; 5 MCG/MIN PRN Reason: Protocol Last Titration: 08/24/16 19:51 Dose: 10 mcg/min, 3 mls/hr Sodium Chloride (Sodium Chloride 0.9%) 1,000 mls @ 20 mls/hr IV .Q24H [facility] Last Admin: 08/24/16 19:50 Dose: Not Given Insulin Aspart (Novolog) 0 unit SC ACHS [facility] PRN Reason: Protocol Last Admin: 08/25/16 07:30 Dose: Not Given Rosuvastatin Calcium (Crestor) 5 mg PO HS [facility] Last Admin: 08/24/16 21:18 Dose: 5 mg - Labs Labs: 08/25/16 06:31 08/25/16 06:31 - Additional Findings Additional findings: - Constitutional Appears: Non-toxic, No Acute Distress - Head Exam Head Exam: ATRAUMATIC, NORMOCEPHALIC - Eye Exam Eye Exam: EOMI - ENT Exam ENT Exam: Mucous Membranes Moist Additional comments: poor dentition - Respiratory Exam Respiratory Exam: Rhonchi (improving), NORMAL BREATHING PATTERN - Cardiovascular Exam Cardiovascular Exam: +S1, +S2 Additional comments: ICD left side chest, site is CDI - GI/Abdominal Exam GI & Abdominal Exam: Soft, Normal Bowel Sounds. absent: Tenderness - Extremities Exam Extremities Exam: absent: Pedal Edema - Neurological Exam Neurological Exam: Alert, Awake, Oriented x2 (is unsure of date) - Psychiatric Exam Psychiatric exam: Normal Affect, Normal Mood - Skin Skin Exam: Dry, Warm Assessment and Plan - Assessment and Plan (Free Text) Assessment: Acute on chronic combined systolic and diastolic congestive heart failure 08/25: Patient to be transferred to [facility] today under Dr. Cunningham for PCI stent placement. EMTALA complete. 08/24: AAOx2- Plan is for PCI stent placement at [facility] tomorrow, EMTALA form completed, awaiting family meeting for daughter's consent. 08/23: Patient has stenosis of the LAD - Planning in process for transfer alternate facility for cardiac stent placement with Dr. Cunningham. -prior admissin: ECHO 08/02/16 - suboptimal study. LVEF approximately 35%, septum appears akinetic and dyskinetic, moderate pulmonary hypertension -Echo- 06/25/16- Systolic function is mildly impaired, EF- 40-45%. Akinesis and thinning of basal and mid inferior wall and septal wall segments (both anterior and inferior)indicative of prior [place]. LA moderately dilated. RA mildly dilated. AV moderately sclerotic. Mod tricuspid regurg (please see full report) -ICD placed by Dr. Gustafson 08/16/16. Site is [facility]. -NEO neg x1 -BNP 3540 -f/u NEO + EKG 1400, 2100 -Continue Coreg 6.25mg PO BID -Continue Plavix 75mg PO Daily -Lasix 40mg IVP [id number] -Continue Asa 81mg PO Daily -Cardiology consulted, Dr. Cunningham (prior stents) + Dr. Gustafson (recent ICD placement); help appreciated CAD 08/25: Patient to be transferred to [facility] today under Dr. Cunningham for PCI stent placement. EMTALA complete. 08/24: AAOx2- Plan is for PCI stent placement at [facility] tomorrow, EMTALA form completed, awaiting family meeting for daughter's consent. 08/23: Patient has stenosis of the LAD - Planning in process for transfer alternate facility for cardiac stent placement with Dr. Cunningham. -s/p ICD 08/16, ICD interrogated, functioning well. Pt was to follow up with Dr. Gustafson this week for wound check -consult cardio, Dr. Cunningham, f/u recs -recent cardiac cath shows severe LV dysfunction with EF of 35%. -f/u NEO + EKG 1400, 2100 -ECHO 08/02/16 - suboptimal study. LVEF approximately 35%, septum appears akinetic and dyskinetic, moderate pulmonary hypertension -Cardiac cath 08/11/16 - left main patent, LAD has eccentric calcification of the mid vessel. 80% stenosis of the mid vessel with a hazy opacity in the mid. Left circumflex has 50% stenosis in proximal vessel. RCA has a widely patent stent and eccentric calcification in the distal vessel. LVEF is 35%. -Dr. Cunningham plan in prior note, possible PCI for Mid LAD, however patient refused at that time. Respiratory Failure 08/24-08/25: patient satting well on NC. 08/23: patient being monitored in ICU. Patient needed BiPAP overnight but is on NC this AM and satting well. 08/22: CT chest - small b/l effusion R>L; small nodules in lung apicies. Hypoxemia on admission Patient was intubated and required ventilatory support on prior admission until (08/05/16) BIPAP Continue cardiac medications below. Hx Vtach - vtach last week while inpatient. - currently stable Anemia 08/23-08/25: Hgb low stable. 8.9 Hgb 9.7 -Continue ferrous sulfate 325mg PO BID Anxiety -Xanax 0.5mg PO Q12H PRN Hx Hypotension Currently stable. Continue to monitor. Hx Diabetes -Novolog ISS - low dose -accuchecks achs Prophylactic Measure -SCDs -Pepcid 20mg PO qd. -Rosuvastatin Calcium (Crestor) 5 mg PO HS [facility] -heparin 5k sc Q12H All medical management as per Dr. Beck.
--- NOTE | 2016-08-25 12:53 | CP.PCM.PN ---
<Jaquan Plascencia - Last Filed: 08/25/16 12:48> Subjective - Date & Time of Evaluation Date of Evaluation: 08/25/16 Time of Evaluation: 12:48 - Subjective Subjective: Progress Note for Dr. Gustafson Pt seen and examined at bedside. Pt with no acute events overnight as per nursing. Pt with no acute complaints at this time. Denies CP or SOB. Objective - Vital Signs/Intake and Output Vital Signs (last 24 hours): Temp Pulse Resp BP Pulse Ox 98.9 F 76 11 L 111/63 92 L 08/25/16 08:00 08/25/16 10:50 08/25/16 10:50 08/25/16 10:21 08/25/16 10:50 Intake and Output: 08/25/16 08/25/16 06:59 18:59 Intake Total 647.1 165 Output Total 650 500 Balance -2.9 -335 - Medications Medications: Current Medications Alprazolam (Xanax) 0.5 mg PO Q12 PRN PRN Reason: Anxiety Last Admin: 08/25/16 09:26 Dose: 0.5 mg Aspirin (Aspirin Chewable) 81 mg PO DAILY [facility] Last Admin: 08/25/16 09:26 Dose: 81 mg Carvedilol (Coreg) 6.25 mg PO BID [facility] Last Admin: 08/25/16 09:26 Dose: 6.25 mg Clopidogrel Bisulfate (Plavix) 75 mg PO DAILY [facility] Last Admin: 08/25/16 09:26 Dose: 75 mg Famotidine (Pepcid) 20 mg PO DAILY [facility] Last Admin: 08/25/16 09:26 Dose: 20 mg Ferrous Sulfate (Feosol) 325 mg PO BID [facility] Last Admin: 08/25/16 09:26 Dose: 325 mg Furosemide (Lasix) 40 mg IVP Q12 [facility] Last Admin: 08/25/16 09:26 Dose: 40 mg Heparin Sodium (Porcine) (Heparin) 5,000 units SC Q12 [facility] Last Admin: 08/25/16 09:27 Dose: Not Given Nitroglycerin/Dextrose (Nitroglycerin 50 Mg/250 Ml D5w) 50 mg in 250 mls @ 1.5 mls/hr IV .Q24H [facility]; 5 MCG/MIN PRN Reason: Protocol Last Titration: 08/24/16 19:51 Dose: 10 mcg/min, 3 mls/hr Sodium Chloride (Sodium Chloride 0.9%) 1,000 mls @ 20 mls/hr IV .Q24H [facility] Last Admin: 08/24/16 19:50 Dose: Not Given Insulin Aspart (Novolog) 0 unit SC ACHS [facility] PRN Reason: Protocol Last Admin: 08/25/16 07:30 Dose: Not Given Rosuvastatin Calcium (Crestor) 5 mg PO HS [facility] Last Admin: 08/24/16 21:18 Dose: 5 mg - Labs Labs: 08/25/16 06:31 08/25/16 06:31 - Constitutional Appears: Non-toxic, No Acute Distress - Head Exam Head Exam: ATRAUMATIC, NORMAL INSPECTION, NORMOCEPHALIC - Respiratory Exam Respiratory Exam: Decreased Breath Sounds, NORMAL BREATHING PATTERN - Cardiovascular Exam Cardiovascular Exam: Irregular Rhythm, +S1, +S2 - GI/Abdominal Exam GI & Abdominal Exam: Soft, Normal Bowel Sounds. absent: Tenderness - Extremities Exam Extremities Exam: absent: Calf Tenderness, Pedal Edema - Neurological Exam Neurological Exam: Alert, Awake - Skin Skin Exam: Intact, Normal Color, Warm Assessment and Plan (1) CHF (congestive heart failure) Assessment & Plan: Pt planned for stent placement at [facility] today by Dr. Cunningham Continue current medical management Status: Acute <Iraida Gustafson - Last Filed: 09/30/16 12:08> Objective - Vital Signs/Intake and Output Vital Signs (last 24 hours): Temp Pulse Resp BP Pulse Ox 97.8 F 71 18 106/66 98 08/29/16 00:00 08/29/16 00:00 08/29/16 00:00 08/29/16 10:29 08/29/16 00:00 - Labs Labs: 08/29/16 08:09 08/29/16 08:09 Attending/Attestation - Attestation I have personally seen and examined this patient.: Yes I have fully participated in the care of the patient.: Yes I have reviewed all pertinent clinical information, including history, physical exam and plan: Yes Notes (Text): 09/30/16 12:05 [place] [facility] [place]
[2016-08-25] MEDS: Nitroglycerin 50mg in D5W 50 MG/250 ML BOTTLE IV SCH (17:00)
[2016-08-25] MEDS: Sodium Chloride 0.9% 1,000 ML IV SCH (19:49)
--- NOTE | 2016-08-25 20:57 | CP.CCUPN ---
CCU Subjective - Physician Review Events Since Last Encounter (Free Text): 08/26/16 00:58 The Patient was seen and examined at the bedside, Medical records reviewed, all clinical/lab/hemodynamic/radiographic data were reviewed and management issues were discussed and formulated, [place] [facility] [place] of Mid LAD with GARRY. Patient is awake and alert, denies pain or SOB. CCU Objective - Vital Signs / Intake & Output Vital Signs (Last 4 hours): Vital Signs Temp Pulse Resp BP Pulse Ox 08/25/16 20:26 68 101 H 08/25/16 20:11 98.3 F 65 18 95/53 L 08/25/16 19:50 64 23 100 08/25/16 19:46 65 25 H 97/47 L 100 08/25/16 19:40 63 28 H 100 08/25/16 19:31 64 26 H 106/57 L 100 08/25/16 19:30 62 29 H 99 08/25/16 19:21 65 28 H 111/55 L 100 08/25/16 19:20 64 27 H 100 08/25/16 19:15 65 16 111/56 L 08/25/16 19:10 66 25 H 100 08/25/16 19:04 67 14 94 L 08/25/16 19:03 116/57 L 08/25/16 19:00 98.3 F 65 16 116/57 L Intake and Output (Last 8hrs): Intake & Output 08/25/16 08/25/16 08/25/16 06:59 14:59 22:59 Intake Total 424 165 0 Output Total 625 500 Balance -201 -335 0 Weight 83 lb 8.883 oz Intake: IV 184 Intake, IV Amount 115 Left Forearm 35 Left Proximal Port 80 Forearm Oral 240 50 0 Output: Urine 625 500 Urethral (Hernandez) 625 500 Other: # Bowel Movements 1 - Physical Exam Head: Positive for: Atraumatic, Normocephalic Pupils: Positive for: PERRL Extroacular Muscles: Positive for: EOMI Conjunctiva: Positive for: Normal. Negative for: Injected, Icteric Mouth: Positive for: Moist Mucous Membranes Neck: Positive for: Normal Range of Motion Respiratory/Chest: Positive for: Rhonchi (R lung base). Negative for: Accessory Muscle Use Cardiovascular: Positive for: Regular Rate and Rhythm, Normal S1, S2, Other ( ICD placed in left chest). Negative for: Murmurs Abdomen: Positive for: Normal Bowel Sounds. Negative for: Tenderness Upper Extremity: Positive for: Normal Inspection. Negative for: Cyanosis, Edema Lower Extremity: Positive for: Normal Inspection. Negative for: Edema Neurological: Positive for: Speech Normal Skin: Positive for: Warm, Dry, Normal Color. Negative for: Rashes Psychiatric: Positive for: Alert. Negative for: Oriented x 3, Normal Insight, Normal Concentration - Medications Active Medications: Active Medications Generic Name Dose Route Start Last Admin Trade Name Freq PRN Reason Stop Dose Admin Alprazolam 0.5 mg 08/22/16 12:15 08/25/16 09:26 Xanax PO 0.5 mg Q12 PRN Administration Anxiety Aspirin 81 mg 08/23/16 10:00 08/25/16 09:26 Aspirin Chewable PO 81 mg DAILY [facility] Administration Carvedilol 6.25 mg 08/22/16 18:00 08/25/16 19:44 Coreg PO Not Given BID [facility] Clopidogrel Bisulfate 75 mg 08/23/16 10:00 08/25/16 09:26 Plavix PO 75 mg DAILY [facility] Administration Famotidine 20 mg 08/23/16 10:00 08/25/16 09:26 Pepcid PO 20 mg DAILY [facility] Administration Ferrous Sulfate 325 mg 08/22/16 18:00 08/25/16 19:44 Feosol PO Not Given BID [facility] Furosemide 40 mg 08/22/16 22:00 08/25/16 09:26 Lasix IVP 40 mg Q12 [facility] Administration Heparin Sodium (Porcine) 5,000 units 08/22/16 22:00 08/25/16 09:27 Heparin SC Not Given Q12 [facility] Sodium Chloride 1,000 mls @ 20 mls/hr 08/22/16 19:00 08/25/16 19:49 Sodium Chloride 0.9% IV 20 mls/hr .Q24H [facility] Administration Insulin Aspart 0 unit 08/22/16 16:30 08/25/16 16:30 Novolog SC Not Given ACHS [facility] Protocol Rosuvastatin Calcium 5 mg 08/22/16 22:00 08/24/16 21:18 Crestor PO 5 mg HS [facility] Administration - Patient Studies Lab Studies: Lab Studies 06/29/17 06/29/17 06/29/17 Range/Units 07:21 06:31 06:31 WBC 7.6 (4.8-10.8) K/uL RBC 3.80 (3.80-5.20) Mil/uL Hgb 8.9 L (11.0-16.0) g/dL Hct 27.8 L (34.0-47.0) % MCV 73.1 L (81.0-99.0) fL MCH 23.5 L (27.0-31.0) pg MCHC 32.1 L (33.0-37.0) g/dL RDW 19.7 H (11.5-14.5) % Plt Count 251 (130-400) K/uL MPV 9.8 (7.2-11.7) fL Neut % (Auto) 53.9 (50.0-75.0) % Lymph % (Auto) 29.5 (20.0-40.0) % [place] % (Auto) 12.1 H (0.0-10.0) % Eos % (Auto) 3.0 (0.0-4.0) % Baso % (Auto) 1.5 (0.0-2.0) % Neut # 4.1 (1.8-7.0) K/uL Lymph # 2.2 (1.0-4.3) K/uL [place] # 0.9 H (0.0-0.8) K/uL Eos # 0.2 (0.0-0.7) K/uL Baso # 0.1 (0.0-0.2) K/uL Sodium 135 (132-148) mmol/L Potassium 3.6 (3.6-5.2) mmol/L Chloride 96 L (98-107) mmol/L Carbon Dioxide 27 (22-30) mmol/L Anion Gap 16 (10-20) BUN 18 H (7-17) mg/dL Creatinine 0.8 (0.7-1.2) MG/DL Est GFR ( Amer) > 60 Est GFR (Non-Af Amer) > 60 POC Glucose (mg/dL) 98 (65-110) mg/dL Random Glucose 100 (65-105) mg/dL Calcium 8.6 (8.6-10.4) mg/dl Phosphorus 3.3 (2.5-4.5) mg/dL Magnesium 1.8 (1.6-2.3) mg/dL Total Bilirubin 0.8 (0.2-1.3) mg/dL AST 18 (14-36) U/L ALT < 6 L D (9-52) U/L Alkaline Phosphatase 90 (38-126) U/L Total Protein 7.1 (6.3-8.3) g/dL Albumin 3.5 (3.5-5.0) g/dL Globulin 3.5 (2.2-3.9) gm/dL Albumin/Globulin Ratio 1.0 (1.0-2.1) 08/24/16 Range/Units 21:13 WBC (4.8-10.8) K/uL RBC (3.80-5.20) Mil/uL Hgb (11.0-16.0) g/dL Hct (34.0-47.0) % MCV (81.0-99.0) fL MCH (27.0-31.0) pg MCHC (33.0-37.0) g/dL RDW (11.5-14.5) % Plt Count (130-400) K/uL MPV (7.2-11.7) fL Neut % (Auto) (50.0-75.0) % Lymph % (Auto) (20.0-40.0) % [place] % (Auto) (0.0-10.0) % Eos % (Auto) (0.0-4.0) % Baso % (Auto) (0.0-2.0) % Neut # (1.8-7.0) K/uL Lymph # (1.0-4.3) K/uL [place] # (0.0-0.8) K/uL Eos # (0.0-0.7) K/uL Baso # (0.0-0.2) K/uL Sodium (132-148) mmol/L Potassium (3.6-5.2) mmol/L Chloride (98-107) mmol/L Carbon Dioxide (22-30) mmol/L Anion Gap (10-20) BUN (7-17) mg/dL Creatinine (0.7-1.2) MG/DL Est GFR ( Amer) Est GFR (Non-Af Amer) POC Glucose (mg/dL) 101 (65-110) mg/dL Random Glucose (65-105) mg/dL Calcium (8.6-10.4) mg/dl Phosphorus (2.5-4.5) mg/dL Magnesium (1.6-2.3) mg/dL Total Bilirubin (0.2-1.3) mg/dL AST (14-36) U/L ALT (9-52) U/L Alkaline Phosphatase (38-126) U/L Total Protein (6.3-8.3) g/dL Albumin (3.5-5.0) g/dL Globulin (2.2-3.9) gm/dL Albumin/Globulin Ratio (1.0-2.1) Laboratory Results - last 24 hr 08/24/16 08/25/16 08/25/16 21:13 06:31 06:31 WBC 7.6 RBC 3.80 Hgb 8.9 L Hct 27.8 L MCV 73.1 L MCH 23.5 L MCHC 32.1 L RDW 19.7 H Plt Count 251 MPV 9.8 Neut % (Auto) 53.9 Lymph % (Auto) 29.5 [place] % (Auto) 12.1 H Eos % (Auto) 3.0 Baso % (Auto) 1.5 Neut # 4.1 Lymph # 2.2 [place] # 0.9 H Eos # 0.2 Baso # 0.1 Sodium 135 Potassium 3.6 Chloride 96 L Carbon Dioxide 27 Anion Gap 16 BUN 18 H Creatinine 0.8 Est GFR ( Amer) > 60 Est GFR (Non-Af Amer) > 60 POC Glucose (mg/dL) 101 Random Glucose 100 Calcium 8.6 Phosphorus 3.3 Magnesium 1.8 Total Bilirubin 0.8 AST 18 ALT < 6 L D Alkaline Phosphatase 90 Total Protein 7.1 Albumin 3.5 Globulin 3.5 Albumin/Globulin Ratio 1.0 08/25/16 07:21 WBC RBC Hgb Hct MCV MCH MCHC RDW Plt Count MPV Neut % (Auto) Lymph % (Auto) [place] % (Auto) Eos % (Auto) Baso % (Auto) Neut # Lymph # [place] # Eos # Baso # Sodium Potassium Chloride Carbon Dioxide Anion Gap BUN Creatinine Est GFR ( Amer) Est GFR (Non-Af Amer) POC Glucose (mg/dL) 98 Random Glucose Calcium Phosphorus Magnesium Total Bilirubin AST ALT Alkaline Phosphatase Total Protein Albumin Globulin Albumin/Globulin Ratio Fingerstick Blood Sugar Results: 101 Review of Systems - Cardiovascular Cardiovascular: absent: As Per HPI, Acrocyanosis, Chest Pain, Chest Pain at Rest , Chest Pain with Activity, Claudication, Diaphoresis, Dyspnea, Dyspnea on Exertion, Edema, Irregular Heart Rhythm, Pain Radiating to Arm/Neck/Jaw, Leg Edema, Leg Ulcers, Lightheadedness, Orthopnea, Palpitations, Paroxysmal Nocturnal Dyspnea, Pedal Edema, Radiating Pain, Rapid Heart Rate, Slow Heart Rate, Syncope, Other, UNREMARKABLE - Respiratory Respiratory: absent: As Per HPI, Cough, Dyspnea, Hemoptysis, Dyspnea on Exertion , Wheezing, Snoring, Stridor, Pain on Inspiration, Chest Congestion, Excessive Mucous Production, Change in Mucous Color, Pain with Coughing, Other, UNREMARKABLE Critical Care Progress Note - Nutrition Nutrition: Nutrition Category Date Time Status NPO Diet [DIET] Diets 08/25/16 Breakfast Active Assessment/Plan (1) Acute on chronic systolic heart failure Current Visit: Yes Status: Acute (2) CAD S/P percutaneous coronary angioplasty Current Visit: No Status: Chronic (3) COPD (chronic obstructive pulmonary disease) Current Visit: No Status: Chronic (4) DM2 (diabetes mellitus, type 2) Current Visit: No Status: Chronic Comment: -controlled (5) Hypertension Current Visit: No Status: Chronic Comment: history of controlled with home medications, continue current home medications (6) Ischemic cardiomyopathy Current Visit: No Status: Chronic - Assessment and Plan (Free Text) Assessment: The Patient S/P PCI of Mid LAD with GARRY. Patient is awake and alert, denies pain or SOB. Continue current medications ASA, Plavix, Coreg, Crestor and Lasix
[2016-08-26 06:46] LABS: BASO # 0.1 K/uL (0.0-0.2); BASO % 1.3 % (0.0-2.0); EOS # 0.1 K/uL (0.0-0.7); EOS % 1.9 % (0.0-4.0); LYMPH # 1.6 K/uL (1.0-4.3); LYMPH % 20.9 % (20.0-40.0); MEAN CELL VOLUME 73.5 fL (81.0-99.0); MEAN CORPUSCULAR HEMOGLOBIN 23.4 pg (27.0-31.0); MEAN CORPUSCULAR HGB CONC 31.8 g/dL (33.0-37.0); MEAN PLATELET VOLUME 9.9 fL (7.2-11.7); MONO # 0.9 K/uL (0.0-0.8); MONO % 11.7 % (0.0-10.0); RED CELL DISTRIBUTION WIDTH 19.8 % (11.5-14.5); WHITE BLOOD COUNT 7.9 K/uL (4.8-10.8)
[2016-08-26 07:01] LABS: CHLORIDE 97 mmol/L (98-107); POTASSIUM 3.6 mmol/L (3.6-5.2); SODIUM 136 mmol/L (132-148)
[2016-08-26 07:03] LABS: BILIRUBIN,TOTAL 0.9 mg/dL (0.2-1.3); GFR AFRICAN-AMERICAN > 60
[2016-08-26 07:04] LABS: ALKALINE PHOSPHATASE 100 U/L (38-126); ALT/SGPT 10 U/L (9-52); AST/SGOT 26 U/L (14-36); BLOOD UREA NITROGEN 18 mg/dL (7-17); CALCIUM 8.9 mg/dl (8.6-10.4); CARBON DIOXIDE 26 mmol/L (22-30); GLUCOSE,RANDOM 98 mg/dL (65-105); PHOSPHOROUS 4.1 mg/dL (2.5-4.5); TOTAL PROTEIN 7.4 g/dL (6.3-8.3)
[2016-08-26 07:05] LABS: MAGNESIUM 1.9 mg/dL (1.6-2.3)
[2016-08-26] MEDS: (Novolog) Insulin Aspart, Recombinant 100 u/ml 10 ml vial SC SCH ×4 (07:30→21:59)
--- NOTE | 2016-08-26 08:24 | CP.PCM.PN ---
Subjective - Date & Time of Evaluation Date of Evaluation: 08/26/16 Time of Evaluation: 08:00 - Subjective Subjective: patient is doing well after stent of the LAD. Objective - Vital Signs/Intake and Output Vital Signs (last 24 hours): Temp Pulse Resp BP Pulse Ox 98.3 F 68 19 100/62 98 08/26/16 04:00 08/26/16 06:31 08/26/16 06:31 08/26/16 06:31 08/26/16 06:31 Intake and Output: 08/26/16 08/26/16 06:59 18:59 Intake Total 780 Output Total 850 Balance -70 - Medications Medications: Current Medications Acetaminophen (Tylenol 325mg Tab) 650 mg PO Q6 PRN PRN Reason: Pain, Mild (1-3) Alprazolam (Xanax) 0.5 mg PO Q12 PRN PRN Reason: Anxiety Last Admin: 08/25/16 23:20 Dose: 0.5 mg Aspirin (Aspirin Chewable) 81 mg PO DAILY [facility] Last Admin: 08/25/16 09:26 Dose: 81 mg Carvedilol (Coreg) 6.25 mg PO BID [facility] Last Admin: 08/25/16 19:44 Dose: Not Given Clopidogrel Bisulfate (Plavix) 75 mg PO DAILY [facility] Last Admin: 08/25/16 09:26 Dose: 75 mg Famotidine (Pepcid) 20 mg PO DAILY [facility] Last Admin: 08/25/16 09:26 Dose: 20 mg Ferrous Sulfate (Feosol) 325 mg PO BID [facility] Last Admin: 08/25/16 19:44 Dose: Not Given Furosemide (Lasix) 40 mg IVP Q12 [facility] Last Admin: 08/25/16 22:02 Dose: Not Given Heparin Sodium (Porcine) (Heparin) 5,000 units SC Q12 [facility] Last Admin: 08/25/16 22:01 Dose: 5,000 units Sodium Chloride (Sodium Chloride 0.9%) 1,000 mls @ 20 mls/hr IV .Q24H [facility] Last Admin: 08/25/16 19:49 Dose: 20 mls/hr Insulin Aspart (Novolog) 0 unit SC ACHS [facility] PRN Reason: Protocol Last Admin: 08/25/16 22:02 Dose: Not Given Rosuvastatin Calcium (Crestor) 5 mg PO HS [facility] Last Admin: 08/25/16 22:00 Dose: 5 mg - Labs Labs: 08/26/16 06:22 08/26/16 06:22 - Constitutional Appears: Non-toxic - Head Exam Head Exam: NORMAL INSPECTION - Eye Exam Eye Exam: Normal appearance - ENT Exam ENT Exam: Mucous Membranes Moist - Neck Exam Neck Exam: Full ROM - Respiratory Exam Respiratory Exam: NORMAL BREATHING PATTERN - Cardiovascular Exam Cardiovascular Exam: REGULAR RHYTHM - GI/Abdominal Exam GI & Abdominal Exam: Normal Bowel Sounds - Rectal Exam Rectal Exam: Deferred - Extremities Exam Extremities Exam: Pedal Edema - Back Exam Back Exam: NORMAL INSPECTION - Neurological Exam Neurological Exam: Alert - Psychiatric Exam Psychiatric exam: Normal Affect - Skin Skin Exam: Normal Color Assessment and Plan (1) Acute on chronic combined systolic and diastolic congestive heart failure Assessment & Plan: improving with diuresis. Status: Acute (2) CAD (coronary artery disease) Assessment & Plan: s/p stent LAD. continue ASA/Plavix Status: Acute (3) Hypertension Assessment & Plan: monitored and controlled Status: Chronic
--- NOTE | 2016-08-26 12:51 | CP.PCM.PN ---
<Jaquan Plascencia - Last Filed: 08/26/16 12:49> Subjective - Date & Time of Evaluation Date of Evaluation: 08/26/16 Time of Evaluation: 12:49 - Subjective Subjective: Progress Note for Dr. Gustafson Pt seen and examined at bedside. Pt with no acute events overnight as per nursing. Pt underwent cardiac cath yesterday. Denies CP, SOB, N/V/D. Objective - Vital Signs/Intake and Output Vital Signs (last 24 hours): Temp Pulse Resp BP Pulse Ox 98.4 F 65 25 H 122/68 100 08/26/16 12:00 08/26/16 11:57 08/26/16 11:57 08/26/16 11:57 08/26/16 11:57 Intake and Output: 08/26/16 08/26/16 06:59 18:59 Intake Total 780 Output Total 850 Balance -70 - Medications Medications: Current Medications Acetaminophen (Tylenol 325mg Tab) 650 mg PO Q6 PRN PRN Reason: Pain, Mild (1-3) Last Admin: 08/26/16 08:35 Dose: 650 mg Alprazolam (Xanax) 0.5 mg PO Q12 PRN PRN Reason: Anxiety Last Admin: 08/25/16 23:20 Dose: 0.5 mg Aspirin (Aspirin Chewable) 81 mg PO DAILY [facility] Last Admin: 08/26/16 10:52 Dose: 81 mg Carvedilol (Coreg) 6.25 mg PO BID [facility] Last Admin: 08/26/16 10:52 Dose: 6.25 mg Clopidogrel Bisulfate (Plavix) 75 mg PO DAILY [facility] Last Admin: 08/26/16 10:52 Dose: 75 mg Famotidine (Pepcid) 20 mg PO DAILY [facility] Last Admin: 08/26/16 10:52 Dose: 20 mg Ferrous Sulfate (Feosol) 325 mg PO BID [facility] Last Admin: 08/26/16 10:52 Dose: 325 mg Furosemide (Lasix) 40 mg IVP Q12 [facility] Last Admin: 08/26/16 10:51 Dose: 40 mg Heparin Sodium (Porcine) (Heparin) 5,000 units SC Q12 [facility] Last Admin: 08/26/16 10:52 Dose: 5,000 units Sodium Chloride (Sodium Chloride 0.9%) 1,000 mls @ 20 mls/hr IV .Q24H [facility] Last Admin: 08/25/16 19:49 Dose: 20 mls/hr Insulin Aspart (Novolog) 0 unit SC ACHS [facility] PRN Reason: Protocol Last Admin: 08/26/16 11:30 Dose: Not Given Rosuvastatin Calcium (Crestor) 5 mg PO HS [facility] Last Admin: 08/25/16 22:00 Dose: 5 mg - Labs Labs: 08/26/16 06:22 08/26/16 06:22 - Constitutional Appears: Non-toxic, No Acute Distress - Head Exam Head Exam: ATRAUMATIC, NORMAL INSPECTION, NORMOCEPHALIC - Respiratory Exam Respiratory Exam: Decreased Breath Sounds, NORMAL BREATHING PATTERN - Cardiovascular Exam Cardiovascular Exam: RRR, +S1, +S2 - GI/Abdominal Exam GI & Abdominal Exam: Soft, Normal Bowel Sounds. absent: Tenderness - Extremities Exam Extremities Exam: absent: Calf Tenderness, Pedal Edema - Neurological Exam Neurological Exam: Alert, Awake - Skin Skin Exam: Intact, Normal Color, Warm Assessment and Plan (1) CHF (congestive heart failure) Assessment & Plan: Successful PCI of Mid LAD Pacemaker working appropriately with no issues Will sign off at this time Please reconsult as necessary Thank you Status: Acute <Iraida Gustafson - Last Filed: 09/30/16 12:10> Objective - Vital Signs/Intake and Output Vital Signs (last 24 hours): Temp Pulse Resp BP Pulse Ox 97.8 F 71 18 106/66 98 08/29/16 00:00 08/29/16 00:00 08/29/16 00:00 08/29/16 10:29 08/29/16 00:00 - Labs Labs: 08/29/16 08:09 08/29/16 08:09 Attending/Attestation - Attestation I have personally seen and examined this patient.: Yes I have fully participated in the care of the patient.: Yes I have reviewed all pertinent clinical information, including history, physical exam and plan: Yes Notes (Text): 09/30/16 12:09 successful intervention tolerating po
--- NOTE | 2016-08-26 13:03 | CP.PCM.PN ---
Subjective - Date & Time of Evaluation Date of Evaluation: 08/26/16 Time of Evaluation: 09:10 - Subjective Subjective: PGY2 Medicine note- Dr. Beck's service Patient seen and examined. Patient states she is not feeling well but denies pain at cath site. Patient states she is feeling tired and had poor sleep. Objective - Vital Signs/Intake and Output Vital Signs (last 24 hours): Temp Pulse Resp BP Pulse Ox 98.4 F 65 25 H 122/68 100 08/26/16 12:00 08/26/16 11:57 08/26/16 11:57 08/26/16 11:57 08/26/16 11:57 Intake and Output: 08/26/16 08/26/16 06:59 18:59 Intake Total 780 480 Output Total 850 1000 Balance -70 -520 - Medications Medications: Current Medications Acetaminophen (Tylenol 325mg Tab) 650 mg PO Q6 PRN PRN Reason: Pain, Mild (1-3) Last Admin: 08/26/16 08:35 Dose: 650 mg Alprazolam (Xanax) 0.5 mg PO Q12 PRN PRN Reason: Anxiety Last Admin: 08/26/16 12:53 Dose: 0.5 mg Aspirin (Aspirin Chewable) 81 mg PO DAILY [facility] Last Admin: 08/26/16 10:52 Dose: 81 mg Carvedilol (Coreg) 6.25 mg PO BID [facility] Last Admin: 08/26/16 10:52 Dose: 6.25 mg Clopidogrel Bisulfate (Plavix) 75 mg PO DAILY [facility] Last Admin: 08/26/16 10:52 Dose: 75 mg Famotidine (Pepcid) 20 mg PO DAILY [facility] Last Admin: 08/26/16 10:52 Dose: 20 mg Ferrous Sulfate (Feosol) 325 mg PO BID [facility] Last Admin: 08/26/16 10:52 Dose: 325 mg Furosemide (Lasix) 40 mg IVP Q12 [facility] Last Admin: 08/26/16 10:51 Dose: 40 mg Heparin Sodium (Porcine) (Heparin) 5,000 units SC Q12 [facility] Last Admin: 08/26/16 10:52 Dose: 5,000 units Sodium Chloride (Sodium Chloride 0.9%) 1,000 mls @ 20 mls/hr IV .Q24H [facility] Last Admin: 08/25/16 19:49 Dose: 20 mls/hr Insulin Aspart (Novolog) 0 unit SC ACHS [facility] PRN Reason: Protocol Last Admin: 08/26/16 11:30 Dose: Not Given Rosuvastatin Calcium (Crestor) 5 mg PO HS [facility] Last Admin: 08/25/16 22:00 Dose: 5 mg - Labs Labs: 08/26/16 06:22 08/26/16 06:22 - Constitutional Appears: No Acute Distress, Chronically Ill - Head Exam Head Exam: ATRAUMATIC, NORMOCEPHALIC - Eye Exam Eye Exam: EOMI - ENT Exam ENT Exam: Mucous Membranes Moist Additional comments: poor dentition - Respiratory Exam Respiratory Exam: Decreased Breath Sounds, NORMAL BREATHING PATTERN - Cardiovascular Exam Cardiovascular Exam: +S1, +S2 - GI/Abdominal Exam GI & Abdominal Exam: Soft. absent: Tenderness - Extremities Exam Extremities Exam: Normal Inspection. absent: Pedal Edema Additional comments: left groin cath site clean and dry, soft, no hematoma - Neurological Exam Neurological Exam: Alert, Awake - Psychiatric Exam Psychiatric exam: Normal Affect - Skin Skin Exam: Warm Assessment and Plan - Assessment and Plan (Free Text) Assessment: Acute on chronic combined systolic and diastolic congestive heart failure 08/26: patient s/p GARRY in LAD, continue diuresis as per Dr. Cunningham 08/25: Patient to be transferred [place] [facility] under Dr. Cunningham for PCI stent placement. EMTALA complete. 08/24: AAOx2- Plan is for PCI stent placement at [facility] [place] tomorrow, EMTALA form completed, awaiting family meeting for daughter's consent. 08/23: Patient has stenosis of the LAD - Planning in process for transfer alternate facility for cardiac stent placement with Dr. Cunningham. -prior admissin: ECHO 08/02/16 - suboptimal study. LVEF approximately 35%, septum appears akinetic and dyskinetic, moderate pulmonary hypertension -Echo- 06/25/16- Systolic function is mildly impaired, EF- 40-45%. Akinesis and thinning of basal and mid inferior wall and septal wall segments (both anterior and inferior)indicative of prior NM. LA moderately dilated. RA mildly dilated. AV moderately sclerotic. Mod tricuspid regurg (please see full report) -ICD placed by Dr. Gustafson 08/16/16. Site is [facility]. -NEO neg x1 -BNP 3540 -f/u NEO + EKG 1400, 2100 -Continue Coreg 6.25mg PO BID -Continue Plavix 75mg PO Daily -Lasix 40mg IVP [id number] -Continue Asa 81mg PO Daily -Cardiology consulted, Dr. Cunningham (prior stents) + Dr. Gustafson (recent ICD placement); help appreciated CAD 08/26: patient s/p PCI, GARRY of mid LAD 08/25: Patient to be transferred to [facility] [place] today under Dr. Cunningham for PCI stent placement. EMTALA complete. 08/24: AAOx2- Plan is for PCI stent placement at [facility] [place] tomorrow, EMTALA form completed, awaiting family meeting for daughter's consent. 08/23: Patient has stenosis of the LAD - Planning in process for transfer alternate facility for cardiac stent placement with Dr. Cunningham. -s/p ICD 08/16, ICD interrogated, functioning well. Pt was to follow up with Dr. Gustafson this week for wound check -consult cardio, Dr. Cunningham, f/u recs -recent cardiac cath shows severe LV dysfunction with EF of 35%. -f/u NEO + EKG 1400, 2100 -ECHO 08/02/16 - suboptimal study. LVEF approximately 35%, septum appears akinetic and dyskinetic, moderate pulmonary hypertension -Cardiac cath 08/11/16 - left main patent, LAD has eccentric calcification of the mid vessel. 80% stenosis of the mid vessel with a hazy opacity in the mid. Left circumflex has 50% stenosis in proximal vessel. RCA has a widely patent stent and eccentric calcification in the distal vessel. LVEF is 35%. -Dr. Cunningham plan in prior note, possible PCI for Mid LAD, however patient refused at that time. Respiratory Failure 08/24-08/26: patient satting well on NC. 08/23: patient being monitored in ICU. Patient needed BiPAP overnight but is on NC this AM and satting well. 08/22: CT chest - small b/l effusion R>L; small nodules in lung apicies. Hypoxemia on admission Patient was intubated and required ventilatory support on prior admission until (08/05/16) BIPAP Continue cardiac medications below. Hx Vtach - vtach last week while inpatient. - currently stable Anemia 08/23-08/25: Hgb low stable. 8.9 Hgb 9.7 -Continue ferrous sulfate 325mg PO BID Anxiety -Xanax 0.5mg PO Q12H PRN Hx Hypotension Currently stable at 9.9 Continue to monitor. Hx Diabetes -Novolog ISS - low dose -accuchecks ACHS Prophylactic Measure -SCDs -Pepcid 20mg PO qd. -Rosuvastatin Calcium (Crestor) 5 mg PO HS [facility] -heparin 5k sc Q12H -PT eval All medical management as per Dr. Beck.
[2016-08-26] MEDS: Sodium Chloride 0.9% 1,000 ML IV SCH (15:30)
[2016-08-27 06:34] LABS: BASO # 0.1 K/uL (0.0-0.2); BASO % 1.8 % (0.0-2.0); EOS # 0.4 K/uL (0.0-0.7); EOS % 4.4 % (0.0-4.0); HEMATOCRIT 30.9 % (34.0-47.0); LYMPH % 25.3 % (20.0-40.0); MEAN CELL VOLUME 73.6 fL (81.0-99.0); MEAN CORPUSCULAR HEMOGLOBIN 22.9 pg (27.0-31.0); MEAN CORPUSCULAR HGB CONC 31.1 g/dL (33.0-37.0); MEAN PLATELET VOLUME 9.6 fL (7.2-11.7); MONO # 1.1 K/uL (0.0-0.8); MONO % 13.4 % (0.0-10.0); RED CELL DISTRIBUTION WIDTH 20.1 % (11.5-14.5); WHITE BLOOD COUNT 8.1 K/uL (4.8-10.8)
[2016-08-27 07:14] LABS: CHLORIDE 99 mmol/L (98-107); SODIUM 139 mmol/L (132-148)
[2016-08-27 07:15] LABS: POTASSIUM 3.3 mmol/L (3.6-5.2)
[2016-08-27 07:17] LABS: ALB/GLOB RATIO 0.9 (1.0-2.1); ALKALINE PHOSPHATASE 96 U/L (38-126); AST/SGOT 19 U/L (14-36); BILIRUBIN,TOTAL 0.7 mg/dL (0.2-1.3); BLOOD UREA NITROGEN 17 mg/dL (7-17); CARBON DIOXIDE 29 mmol/L (22-30); GFR AFRICAN-AMERICAN > 60; GLUCOSE,RANDOM 104 mg/dL (65-105); TOTAL PROTEIN 7.6 g/dL (6.3-8.3)
[2016-08-27] MEDS: (Novolog) Insulin Aspart, Recombinant 100 u/ml 10 ml vial SC SCH ×2 (07:30→22:45)
[2016-08-27 07:50] LABS: ALT/SGPT < 6 U/L (9-52)
[2016-08-27] MEDS ORDERED: Potassium Chloride 20 mEq ER Tab PO STA (11:10)
[2016-08-27] MEDS ORDERED: Tramadol 25 mg ONE (17:38)
[2016-08-27] MEDS ORDERED: guaiFENesin 200 mg/10 ml Syrup UD ONE (20:44)
--- NOTE | 2016-08-27 22:34 | CP.PCM.PN ---
Addendum entered and electronically signed by Galileo Linda DO 08/29/16 17:50: This is a late computer entry as EMR was down. Original Note: <Galileo Linda - Last Filed: 08/29/16 17:33> Subjective - Date & Time of Evaluation Date of Evaluation: 08/27/16 Time of Evaluation: 08:25 - Subjective Subjective: PGY2 Medicine note- Dr. Fermin's Service (covering Dr. Beck) Patient seen and examined. S/p PCI LAD 08/25 and AICD placed last visit. Patient states she is not feeling well but denies pain at cath site. Patient states she continues to feel tired. Reports tenderness to palpation of upper chest ( sternal region). Denies fever, chills, abdominal pain, or any additional complaints. - Patient experienced a single episode of nausea / vomiting later in the day. Denies hematemesis. Objective - Vital Signs/Intake and Output Vital Signs (last 24 hours): Temp Pulse Resp BP Pulse Ox 98.1 F 73 18 128/71 99 08/27/16 07:20 08/27/16 07:30 08/27/16 07:20 08/27/16 09:29 08/27/16 07:20 - Medications Medications: Current Medications Acetaminophen (Tylenol 325mg Tab) 650 mg PO Q6 PRN PRN Reason: Pain, Mild (1-3) Last Admin: 08/27/16 09:27 Dose: 650 mg Alprazolam (Xanax) 0.5 mg PO Q12 PRN PRN Reason: Anxiety Last Admin: 08/27/16 12:15 Dose: 0.5 mg Aspirin (Aspirin Chewable) 81 mg PO DAILY [facility] Last Admin: 08/27/16 09:28 Dose: 81 mg Carvedilol (Coreg) 6.25 mg PO BID [facility] Last Admin: 08/27/16 09:28 Dose: 6.25 mg Clopidogrel Bisulfate (Plavix) 75 mg PO DAILY [facility] Last Admin: 08/27/16 09:29 Dose: 75 mg Famotidine (Pepcid) 20 mg PO DAILY [facility] Last Admin: 08/27/16 09:28 Dose: 20 mg Ferrous Sulfate (Feosol) 325 mg PO BID [facility] Last Admin: 08/27/16 09:28 Dose: 325 mg Furosemide (Lasix) 40 mg IVP Q12 [facility] Last Admin: 08/27/16 09:29 Dose: 40 mg Heparin Sodium (Porcine) (Heparin) 5,000 units SC Q12 [facility] Last Admin: 08/27/16 09:29 Dose: 5,000 units Insulin Aspart (Novolog) 0 unit SC ACHS [facility] PRN Reason: Protocol Last Admin: 08/26/16 21:59 Dose: Not Given Rosuvastatin Calcium (Crestor) 5 mg PO HS [facility] Last Admin: 08/26/16 21:59 Dose: 5 mg Tramadol HCl (Ultram) 50 mg PO Q8H PRN PRN Reason: Pain, moderate (4-7) - Labs Labs: 08/27/16 06:20 08/27/16 06:20 - Additional Findings Additional findings: - Constitutional Appears: No Acute Distress, Chronically Ill - Head Exam Head Exam: ATRAUMATIC, NORMOCEPHALIC - Eye Exam Eye Exam: EOMI - ENT Exam ENT Exam: Mucous Membranes Moist Additional comments: poor dentition - Respiratory Exam Respiratory Exam: Decreased Breath Sounds, NORMAL BREATHING PATTERN - Cardiovascular Exam Cardiovascular Exam: +S1, +S2 - GI/Abdominal Exam GI & Abdominal Exam: Soft. absent: Tenderness - Extremities Exam Extremities Exam: Normal Inspection. absent: Pedal Edema Additional comments: left groin cath site clean and dry, soft, no hematoma - Neurological Exam Neurological Exam: Alert, Awake - Psychiatric Exam Psychiatric exam: Normal Affect - Skin Skin Exam: Warm, Dry, Intact Assessment and Plan - Assessment and Plan (Free Text) Assessment: Acute on chronic combined systolic and diastolic congestive heart failure 08/27: patient s/p GARRY in LAD, medical management, Dr. Cunningham on board. 08/26: patient s/p GARRY in LAD, continue diuresis as per Dr. Cunningham 08/25: Patient to be transferred to [facility] [place] today under Dr. Cunningham for PCI stent placement. EMTALA complete. 08/24: AAOx2- Plan is for PCI stent placement at [facility] [place] tomorrow, EMTALA form completed, awaiting family meeting for daughter's consent. 08/23: Patient has stenosis of the LAD - Planning in process for transfer alternate facility for cardiac stent placement with Dr. Cunningham. -prior admissin: ECHO 08/02/16 - suboptimal study. LVEF approximately 35%, septum appears akinetic and dyskinetic, moderate pulmonary hypertension -Echo- 06/25/16- Systolic function is mildly impaired, EF- 40-45%. Akinesis and thinning of basal and mid inferior wall and septal wall segments (both anterior and inferior)indicative of prior CT. LA moderately dilated. RA mildly dilated. AV moderately sclerotic. Mod tricuspid regurg (please see full report) -ICD placed by Dr. Gustafson 08/16/16. Site is [facility]. -NEO neg x1 -BNP 3540 -f/u NEO + EKG 1400, 2100 -Continue Coreg 6.25mg PO BID -Continue Plavix 75mg PO Daily -Lasix 40mg IVP [id number] -Continue Asa 81mg PO Daily -Cardiology consulted, Dr. Cunningham (prior stents) + Dr. Gustafson (recent ICD placement); help appreciated CAD 08/27: s/p PCI LAD. medical therapy, Dr. Cunningham on board. 08/26: patient s/p PCI, GARRY of mid LAD 08/25: Patient to be transferred to [facility] [place] today under Dr. Cunningham for PCI stent placement. EMTALA complete. 08/24: AAOx2- Plan is for PCI stent placement at [facility] [place] tomorrow, EMTALA form completed, awaiting family meeting for daughter's consent. 08/23: Patient has stenosis of the LAD - Planning in process for transfer alternate facility for cardiac stent placement with Dr. Cunningham. -s/p ICD 08/16, ICD interrogated, functioning well. Pt was to follow up with Dr. Gustafson this week for wound check -consult cardio, Dr. Cunningham, f/u recs -recent cardiac cath shows severe LV dysfunction with EF of 35%. -f/u NEO + EKG 1400, 2100 -ECHO 08/02/16 - suboptimal study. LVEF approximately 35%, septum appears akinetic and dyskinetic, moderate pulmonary hypertension -Cardiac cath 08/11/16 - left main patent, LAD has eccentric calcification of the mid vessel. 80% stenosis of the mid vessel with a hazy opacity in the mid. Left circumflex has 50% stenosis in proximal vessel. RCA has a widely patent stent and eccentric calcification in the distal vessel. LVEF is 35%. -Dr. Cunningham plan in prior note, possible PCI for Mid LAD, however patient refused at that time. Respiratory Failure 08/27: Patient doing well, however complaining of mild cough and upper chest pain. Tramadol 25mg PO Q8 PRN, pain. 08/24-08/26: patient satting well on NC. 08/23: patient being monitored in ICU. Patient needed BiPAP overnight but is on NC this AM and satting well. 08/22: CT chest - small b/l effusion R>L; small nodules in lung apicies. Hypoxemia on admission Patient was intubated and required ventilatory support on prior admission until (08/05/16) BIPAP Continue cardiac medications below. Hx Vtach - vtach last week while inpatient. - currently stable Anemia 08/28: 9.9 stable 08/23-08/25: Hgb low stable. 8.9 Hgb 9.7 -Continue ferrous sulfate 325mg PO BID Anxiety -Xanax 0.5mg PO Q12H PRN Hx Hypotension Currently stable at 9.9 Continue to monitor. Hx Diabetes -Novolog ISS - low dose -accuchecks ACHS Nausea / Vomit 08/27: single episode today -Zofran 4mg IVP Q6H PRN Electrolyte Imbalance - Hypokalemia, K 3.3, Kdur, f/u Prophylactic Measure -SCDs -Pepcid 20mg PO qd. -Rosuvastatin Calcium (Crestor) 5 mg PO HS [facility] -heparin 5k sc Q12H -PT eval <Sean Fermin - Last Filed: 10/05/16 14:44> Objective - Vital Signs/Intake and Output Vital Signs (last 24 hours): Temp Pulse Resp BP Pulse Ox 97.8 F 71 18 106/66 98 08/29/16 00:00 08/29/16 00:00 08/29/16 00:00 08/29/16 10:29 08/29/16 00:00 - Labs Labs: 08/29/16 08:09 08/29/16 08:09 Attending/Attestation - Attestation I have personally seen and examined this patient.: Yes I have fully participated in the care of the patient.: Yes I have reviewed all pertinent clinical information, including history, physical exam and plan: Yes Notes (Text): Patient seen and examined with the resident. Agree with the residents evaluation, assessment and plan. Acute on chronic combined systolic and diastolic congestive heart failure CAD Respiratory Failure Hx Vtach Anemia Anxiety Hx Hypotension Hx Diabetes uncontrolled
[2016-08-27] MEDS ORDERED: Tramadol 25 mg PO PRN (22:37)
[2016-08-28] MEDS: Tramadol 25 mg PO PRN ×2 (01:40→15:55)
[2016-08-28] MEDS: (Novolog) Insulin Aspart, Recombinant 100 u/ml 10 ml vial SC SCH ×4 (07:30→21:38)
[2016-08-28] MEDS: guaiFENesin 200 mg/10 ml Syrup UD PO PRN (09:57)
[2016-08-28 09:58] LABS: BASO # 0.1 K/uL (0.0-0.2); BASO % 1.4 % (0.0-2.0); EOS # 0.3 K/uL (0.0-0.7); EOS % 4.3 % (0.0-4.0); HEMATOCRIT 31.6 % (34.0-47.0); LYMPH % 25.1 % (20.0-40.0); MEAN CELL VOLUME 74.4 fL (81.0-99.0); MEAN CORPUSCULAR HGB CONC 30.9 g/dL (33.0-37.0); MEAN PLATELET VOLUME 9.8 fL (7.2-11.7); MONO # 0.9 K/uL (0.0-0.8); MONO % 11.6 % (0.0-10.0); NRBC % 0.1 % (0.0-2.0); RED CELL DISTRIBUTION WIDTH 19.6 % (11.5-14.5)
[2016-08-28 10:05] LABS: CHLORIDE 97 mmol/L (98-107); SODIUM 136 mmol/L (132-148)
[2016-08-28 10:06] LABS: POTASSIUM 4.4 mmol/L (3.6-5.2)
[2016-08-28 10:08] LABS: ALB/GLOB RATIO 0.9 (1.0-2.1); ALKALINE PHOSPHATASE 100 U/L (38-126); AST/SGOT 22 U/L (14-36); BILIRUBIN,TOTAL 0.7 mg/dL (0.2-1.3); BLOOD UREA NITROGEN 13 mg/dL (7-17); CARBON DIOXIDE 27 mmol/L (22-30); GFR AFRICAN-AMERICAN > 60; TOTAL PROTEIN 7.7 g/dL (6.3-8.3)
[2016-08-28 10:09] LABS: ALT/SGPT 12 U/L (9-52); CALCIUM 9.1 mg/dl (8.6-10.4); GLUCOSE,RANDOM 135 mg/dL (65-105)
--- NOTE | 2016-08-28 17:18 | CP.PCM.PN ---
Subjective - Date & Time of Evaluation Date of Evaluation: 08/28/16 Time of Evaluation: 12:30 - Subjective Subjective: no complaints. no chest pain Objective - Vital Signs/Intake and Output Vital Signs (last 24 hours): Temp Pulse Resp BP Pulse Ox 97.1 F L 63 20 108/69 99 08/28/16 15:00 08/28/16 15:00 08/28/16 15:00 08/28/16 15:00 08/28/16 15:00 Intake and Output: 08/28/16 08/28/16 06:59 18:59 Intake Total 450 Balance 450 - Medications Medications: Current Medications Acetaminophen (Tylenol 325mg Tab) 650 mg PO Q6 PRN PRN Reason: Pain, Mild (1-3) Last Admin: 08/27/16 09:27 Dose: 650 mg Alprazolam (Xanax) 0.5 mg PO Q12 PRN PRN Reason: Anxiety Last Admin: 08/28/16 13:14 Dose: 0.5 mg Aspirin (Aspirin Chewable) 81 mg PO DAILY [facility] Last Admin: 08/28/16 09:58 Dose: 81 mg Carvedilol (Coreg) 6.25 mg PO BID [facility] Last Admin: 08/28/16 10:04 Dose: 6.25 mg Clopidogrel Bisulfate (Plavix) 75 mg PO DAILY [facility] Last Admin: 08/28/16 09:58 Dose: 75 mg Famotidine (Pepcid) 20 mg PO DAILY [facility] Last Admin: 08/28/16 09:58 Dose: 20 mg Ferrous Sulfate (Feosol) 325 mg PO BID [facility] Last Admin: 08/28/16 09:58 Dose: 325 mg Furosemide (Lasix) 40 mg IVP Q12 [facility] Last Admin: 08/28/16 10:00 Dose: 40 mg Guaifenesin (Robitussin) 200 mg PO Q4H PRN PRN Reason: Cough and congestion Last Admin: 08/28/16 09:57 Dose: 200 mg Heparin Sodium (Porcine) (Heparin) 5,000 units SC Q12 [facility] Last Admin: 08/28/16 09:59 Dose: 5,000 units Insulin Aspart (Novolog) 0 unit SC ACHS [facility] PRN Reason: Protocol Last Admin: 08/28/16 17:14 Dose: Not Given Ondansetron HCl (Zofran Inj) 4 mg IVP Q6H PRN PRN Reason: Nausea/Vomiting Last Admin: 08/28/16 09:59 Dose: 4 mg Rosuvastatin Calcium (Crestor) 5 mg PO HS [facility] Last Admin: 08/27/16 22:42 Dose: 5 mg Tramadol HCl (Ultram) 25 mg PO Q8H PRN PRN Reason: Pain, moderate (4-7) Last Admin: 08/28/16 15:55 Dose: 25 mg - Labs Labs: 08/28/16 09:48 08/28/16 09:48 - Constitutional Appears: Non-toxic - Head Exam Head Exam: NORMAL INSPECTION - Eye Exam Eye Exam: Normal appearance - ENT Exam ENT Exam: Mucous Membranes Moist - Neck Exam Neck Exam: Full ROM - Respiratory Exam Respiratory Exam: Decreased Breath Sounds - Cardiovascular Exam Cardiovascular Exam: REGULAR RHYTHM - GI/Abdominal Exam GI & Abdominal Exam: Normal Bowel Sounds - Rectal Exam Rectal Exam: Deferred - Extremities Exam Extremities Exam: absent: Pedal Edema - Back Exam Back Exam: NORMAL INSPECTION - Neurological Exam Neurological Exam: Alert - Psychiatric Exam Psychiatric exam: Normal Affect - Skin Skin Exam: Normal Color Assessment and Plan (1) Acute on chronic combined systolic and diastolic congestive heart failure Assessment & Plan: s/p AICD. medical management Status: Acute (2) CAD (coronary artery disease) Assessment & Plan: s/p PCI LAD. medical therapy Status: Acute (3) Hypertension Assessment & Plan: controlled Status: Chronic
--- NOTE | 2016-08-28 17:32 | CP.PCM.PN ---
<Galileo Linda - Last Filed: 08/28/16 20:59> Subjective - Date & Time of Evaluation Date of Evaluation: 08/28/16 Time of Evaluation: 09:00 - Subjective Subjective: PGY2 Medicine note- Dr. Fermin's Service (covering Dr. Beck) Patient seen and examined. S/p PCI LAD 08/25 and AICD placed last visit. Patient states she is not feeling well but denies pain at cath site. Patient states she is continues to feel tired, and had 2 bouts of n/v last night (given Zofran). This morning nausea is much improved. Reports tenderness to palpation of upper chest. Denies fever, chills, abdominal pain, or any additional complaints. Objective - Vital Signs/Intake and Output Vital Signs (last 24 hours): Temp Pulse Resp BP Pulse Ox 97.1 F L 63 20 108/69 99 08/28/16 15:00 08/28/16 15:00 08/28/16 15:00 08/28/16 15:00 08/28/16 15:00 Intake and Output: 08/28/16 08/28/16 06:59 18:59 Intake Total 450 Balance 450 - Medications Medications: Current Medications Acetaminophen (Tylenol 325mg Tab) 650 mg PO Q6 PRN PRN Reason: Pain, Mild (1-3) Last Admin: 08/27/16 09:27 Dose: 650 mg Alprazolam (Xanax) 0.5 mg PO Q12 PRN PRN Reason: Anxiety Last Admin: 08/28/16 13:14 Dose: 0.5 mg Aspirin (Aspirin Chewable) 81 mg PO DAILY [facility] Last Admin: 08/28/16 09:58 Dose: 81 mg Carvedilol (Coreg) 6.25 mg PO BID [facility] Last Admin: 08/28/16 17:22 Dose: 6.25 mg Clopidogrel Bisulfate (Plavix) 75 mg PO DAILY [facility] Last Admin: 08/28/16 09:58 Dose: 75 mg Famotidine (Pepcid) 20 mg PO DAILY [facility] Last Admin: 08/28/16 09:58 Dose: 20 mg Ferrous Sulfate (Feosol) 325 mg PO BID [facility] Last Admin: 08/28/16 17:22 Dose: 325 mg Furosemide (Lasix) 40 mg IVP Q12 [facility] Last Admin: 08/28/16 10:00 Dose: 40 mg Guaifenesin (Robitussin) 200 mg PO Q4H PRN PRN Reason: Cough and congestion Last Admin: 08/28/16 09:57 Dose: 200 mg Heparin Sodium (Porcine) (Heparin) 5,000 units SC Q12 [facility] Last Admin: 08/28/16 09:59 Dose: 5,000 units Insulin Aspart (Novolog) 0 unit SC ACHS [facility] PRN Reason: Protocol Last Admin: 08/28/16 17:14 Dose: Not Given Ondansetron HCl (Zofran Inj) 4 mg IVP Q6H PRN PRN Reason: Nausea/Vomiting Last Admin: 08/28/16 09:59 Dose: 4 mg Rosuvastatin Calcium (Crestor) 5 mg PO HS [facility] Last Admin: 08/27/16 22:42 Dose: 5 mg Tramadol HCl (Ultram) 25 mg PO Q8H PRN PRN Reason: Pain, moderate (4-7) Last Admin: 08/28/16 15:55 Dose: 25 mg - Labs Labs: 08/28/16 09:48 08/28/16 09:48 - Additional Findings Additional findings: - Constitutional Appears: No Acute Distress, Chronically Ill - Head Exam Head Exam: ATRAUMATIC, NORMOCEPHALIC - Eye Exam Eye Exam: EOMI - ENT Exam ENT Exam: Mucous Membranes Moist Additional comments: poor dentition - Respiratory Exam Respiratory Exam: Clear to Auscultation, NORMAL BREATHING PATTERN absent: Rales , Rhonchi, Wheezes. - Cardiovascular Exam Cardiovascular Exam: +S1, +S2 - GI/Abdominal Exam GI & Abdominal Exam: Soft. absent: Tenderness - Extremities Exam Extremities Exam: Normal Inspection. absent: Pedal Edema Additional comments: left groin cath site clean and dry, soft, no hematoma - Neurological Exam Neurological Exam: Alert, Awake - Psychiatric Exam Psychiatric exam: Normal Affect - Skin Skin Exam: Warm Assessment and Plan - Assessment and Plan (Free Text) Assessment: Acute on chronic combined systolic and diastolic congestive heart failure 08/28: patient s/p GARRY in LAD, medical management, Dr. Cunningham on board. 08/26: patient s/p GARRY in LAD, continue diuresis as per Dr. Cunningham 08/25: Patient to be transferred to [facility] today under Dr. Cunningham for PCI stent placement. EMTALA complete. 08/24: AAOx2- Plan is for PCI stent placement at [facility] tomorrow, EMTALA form completed, awaiting family meeting for daughter's consent. 08/23: Patient has stenosis of the LAD - Planning in process for transfer alternate facility for cardiac stent placement with Dr. Cunningham. -prior admissin: ECHO 08/02/16 - suboptimal study. LVEF approximately 35%, septum appears akinetic and dyskinetic, moderate pulmonary hypertension -Echo- 06/25/16- Systolic function is mildly impaired, EF- 40-45%. Akinesis and thinning of basal and mid inferior wall and septal wall segments (both anterior and inferior)indicative of prior AR. LA moderately dilated. RA mildly dilated. AV moderately sclerotic. Mod tricuspid regurg (please see full report) -ICD placed by Dr. Gustafson 08/16/16. Site is [facility]. -NEO neg x1 -BNP 3540 -f/u NEO + EKG 1400, 2100 -Continue Coreg 6.25mg PO BID -Continue Plavix 75mg PO Daily -Lasix 40mg IVP [id number] -Continue Asa 81mg PO Daily -Cardiology consulted, Dr. Cunningham (prior stents) + Dr. Gustafson (recent ICD placement); help appreciated CAD 08/28: s/p PCI LAD. medical therapy, Dr. Cunningham on board. 08/26: patient s/p PCI, GARRY of mid LAD 08/25: Patient to be transferred to [facility] today under Dr. Cunningham for PCI stent placement. EMTALA complete. 08/24: AAOx2- Plan is for PCI stent placement at [facility] tomorrow, EMTALA form completed, awaiting family meeting for daughter's consent. 08/23: Patient has stenosis of the LAD - Planning in process for transfer alternate facility for cardiac stent placement with Dr. Cunningham. -s/p ICD 08/16, ICD interrogated, functioning well. Pt was to follow up with Dr. Gustafson this week for wound check -consult cardio, Dr. Cunningham, f/u recs -recent cardiac cath shows severe LV dysfunction with EF of 35%. -f/u NEO + EKG 1400, 2100 -ECHO 08/02/16 - suboptimal study. LVEF approximately 35%, septum appears akinetic and dyskinetic, moderate pulmonary hypertension -Cardiac cath 08/11/16 - left main patent, LAD has eccentric calcification of the mid vessel. 80% stenosis of the mid vessel with a hazy opacity in the mid. Left circumflex has 50% stenosis in proximal vessel. RCA has a widely patent stent and eccentric calcification in the distal vessel. LVEF is 35%. -Dr. Cunningham plan in prior note, possible PCI for Mid LAD, however patient refused at that time. Respiratory Failure 08/28: Patient doing well. Ipratropium BID + Tessalon pearls for cough / irritation 08/24-08/26: patient satting well on NC. 08/23: patient being monitored in ICU. Patient needed BiPAP overnight but is on NC this AM and satting well. 08/22: CT chest - small b/l effusion R>L; small nodules in lung apicies. Hypoxemia on admission Patient was intubated and required ventilatory support on prior admission until (08/05/16) BIPAP Continue cardiac medications below. Hx Vtach - vtach last week while inpatient. - currently stable Anemia 08/28: 9.9 stable 08/23-08/25: Hgb low stable. 8.9 Hgb 9.7 -Continue ferrous sulfate 325mg PO BID Anxiety -Xanax 0.5mg PO Q12H PRN Hx Hypotension Currently stable at 9.9 Continue to monitor. Hx Diabetes -Novolog ISS - low dose -accuchecks ACHS Prophylactic Measure -SCDs -Pepcid 20mg PO qd. -Rosuvastatin Calcium (Crestor) 5 mg PO HS [facility] -heparin 5k sc Q12H -PT eval <Sean Fermin - Last Filed: 10/05/16 14:43> Objective - Vital Signs/Intake and Output Vital Signs (last 24 hours): Temp Pulse Resp BP Pulse Ox 97.8 F 71 18 106/66 98 08/29/16 00:00 08/29/16 00:00 08/29/16 00:00 08/29/16 10:29 08/29/16 00:00 - Labs Labs: 08/29/16 08:09 08/29/16 08:09 Attending/Attestation - Attestation I have personally seen and examined this patient.: Yes I have fully participated in the care of the patient.: Yes I have reviewed all pertinent clinical information, including history, physical exam and plan: Yes Notes (Text): Patient seen and examined with the resident. Agree with the residents evaluation, assessment and plan. Acute on chronic combined systolic and diastolic congestive heart failure CAD Respiratory Failure Hx Vtach Anemia Anxiety Hx Hypotension Hx Diabetes uncontrolled
[2016-08-28] MEDS: Ipratropium 0.02% Inhal Soln (0.5 mg/2.5 ml) UD IH SCH (19:43)
[2016-08-29 01:45] VITALS: BP 106/66; PULSE 71; RESP 18; TEMP 97.8; O2SAT 98
[2016-08-29] MEDS: Ipratropium 0.02% Inhal Soln (0.5 mg/2.5 ml) UD IH SCH (07:46)
[2016-08-29] MEDS: (Novolog) Insulin Aspart, Recombinant 100 u/ml 10 ml vial SC SCH ×2 (07:46→12:33)
[2016-08-29 08:20] LABS: BASO # 0.1 K/uL (0.0-0.2); BASO % 1.4 % (0.0-2.0); EOS # 0.3 K/uL (0.0-0.7); EOS % 3.7 % (0.0-4.0); HEMATOCRIT 30.3 % (34.0-47.0); LYMPH % 25.3 % (20.0-40.0); MEAN CELL VOLUME 73.4 fL (81.0-99.0); MEAN CORPUSCULAR HEMOGLOBIN 23.1 pg (27.0-31.0); MEAN CORPUSCULAR HGB CONC 31.4 g/dL (33.0-37.0); MONO # 0.9 K/uL (0.0-0.8); MONO % 12.1 % (0.0-10.0); NRBC % 0.1 % (0.0-2.0); RED CELL DISTRIBUTION WIDTH 19.4 % (11.5-14.5); WHITE BLOOD COUNT 7.8 K/uL (4.8-10.8)
[2016-08-29 08:32] LABS: CHLORIDE 97 mmol/L (98-107)
[2016-08-29] MEDS: Tramadol 25 mg PO PRN (08:32)
[2016-08-29 08:33] LABS: POTASSIUM 4.1 mmol/L (3.6-5.2); SODIUM 136 mmol/L (132-148)
[2016-08-29] MEDS: guaiFENesin 200 mg/10 ml Syrup UD PO PRN (08:33)
[2016-08-29 08:35] LABS: ALKALINE PHOSPHATASE 101 U/L (38-126); ALT/SGPT 14 U/L (9-52); AST/SGOT 20 U/L (14-36); BILIRUBIN,TOTAL 0.8 mg/dL (0.2-1.3); BLOOD UREA NITROGEN 15 mg/dL (7-17); CARBON DIOXIDE 29 mmol/L (22-30); GFR AFRICAN-AMERICAN > 60; GLUCOSE,RANDOM 92 mg/dL (65-105); TOTAL PROTEIN 7.5 g/dL (6.3-8.3)
[2016-08-29 08:36] LABS: CALCIUM 9.3 mg/dl (8.6-10.4); MAGNESIUM 1.9 mg/dL (1.6-2.3); PHOSPHOROUS 4.1 mg/dL (2.5-4.5)
[2016-08-29] MEDS ORDERED: Bisacodyl 5mg EC Tab PO SCH (11:15)
--- NOTE | 2016-08-29 15:44 | PCM.HF ---
Heart Failure Core Measure - Heart Failure Ejection Fraction: 40 % or Greater (ef <35%) KANDIS Inhibitor Prescribed: No Contraindication/Reason for not providing: aicd, stent Beta-Wesley Prescribed: Carvedilol Angiotensin II Receptor Wesley Prescribed: No Contraindication/Reason for not providing: aicd, stent AnticoagulationTherapy for Atrial Fibrillation/Atrialflutter: No Contraindication/Reason for not providing: no afib Aldosterone Antagonist Prescribed: No Contraindication/Reason for not providing: aicd, Hydralazine Nitrate Prescribed: No Contraindication/Reason for not providing: aicd Implantable Cardioverter Defibrillator Therapy: Yes Contraindication/Reason for not providing: aicd Cardiac Resynchronization Therapy Prescribed: No Contraindication/Reason for not providing: aicd, stent
--- NOTE | 2016-08-29 16:22 | CP.PCM.DIS ---
Addendum entered and electronically signed by Bre Machado DO 08/29/16 17:27: Patient given scripts for all her home medications as listed below (1 month supply): Aspirin [Aspirin Chewable] 81 mg PO DAILY #30 tab Benzonatate [Tessalon Perles] 100 mg PO TID PRN #30 sgl PRN Reason: cough Bisacodyl [Dulcolax] 5 mg PO DAILY PRN #30 PRN Reason: constipation Carvedilol [Coreg] 6.25 mg PO BID #60 tab Clopidogrel [Plavix] 75 mg PO DAILY #30 tab Famotidine [Pepcid] 20 mg PO DAILY #30 tab Ferrous Sulfate [Feosol] 325 mg PO BID #60 tab Furosemide [Lasix] 40 mg PO BID #60 tablet Lancets/Blood Glucose Strips [Fora [id number] Strp-Lnct] 1 each BRK #90 combo..pkg Simvastatin 20 mg PO DAILY #30 tablet Patient is medically stable for discharge home. Patient is to follow up with Cardiology, Dr. Cunningham upon discharge. Patient is to follow up with PMD in 1 week after discharge. Patient's case discussed with case managements and physical therapy. patient farias snot qualify for rehab services. Patient's family refuses adult day care services when offered. This is a summary of patient's hospital course. Please see EMR for full details. Original Note: <Bre Machado - Last Filed: 08/29/16 17:01> Provider - Provider Date of Admission: 08/22/16 11:03 Attending physician: Sean Fermin MD Primary care physician: Dr. Beck Consults: Cardiology: Dr. Cunningham Cardiology: Dr. Gustafson Time Spent in preparation of Discharge (in minutes): 45 Diagnosis - Discharge Diagnosis (1) Arthritis, rheumatoid Status: Chronic (2) CHF (congestive heart failure) Status: Chronic (3) COPD (chronic obstructive pulmonary disease) Status: Chronic (4) DM2 (diabetes mellitus, type 2) Status: Chronic (5) Hypertension Status: Chronic (6) CAD (coronary artery disease) Status: Chronic Hospital Course - Lab Results Lab Results: Micro Results 08/26/16 14:00 Naris MRSA Culture - Final MRSA NOT DETECTED 08/22/16 Unknown Naris MRSA Culture (Admit) - Final MRSA NOT DETECTED Most Recent Lab Values WBC 7.8 K/uL (4.8-10.8) 08/29/16 08:09 RBC 4.13 Mil/uL (3.80-5.20) 08/29/16 08:09 Hgb 9.5 g/dL (11.0-16.0) L 08/29/16 08:09 Hct 30.3 % (34.0-47.0) L 08/29/16 08:09 MCV 73.4 fL (81.0-99.0) L 08/29/16 08:09 MCH 23.1 pg (27.0-31.0) L 08/29/16 08:09 MCHC 31.4 g/dL (33.0-37.0) L 08/29/16 08:09 RDW 19.4 % (11.5-14.5) H 08/29/16 08:09 Plt Count 275 K/uL (130-400) 08/29/16 08:09 MPV 10.0 fL (7.2-11.7) 08/29/16 08:09 Neut % (Auto) 57.5 % (50.0-75.0) 08/29/16 08:09 Lymph % (Auto) 25.3 % (20.0-40.0) 08/29/16 08:09 Fulton % (Auto) 12.1 % (0.0-10.0) H 08/29/16 08:09 Eos % (Auto) 3.7 % (0.0-4.0) 08/29/16 08:09 Baso % (Auto) 1.4 % (0.0-2.0) 08/29/16 08:09 Neut # 4.5 K/uL (1.8-7.0) 08/29/16 08:09 Lymph # 2.0 K/uL (1.0-4.3) 08/29/16 08:09 Fulton # 0.9 K/uL (0.0-0.8) H 08/29/16 08:09 Eos # 0.3 K/uL (0.0-0.7) 08/29/16 08:09 Baso # 0.1 K/uL (0.0-0.2) 08/29/16 08:09 D-Dimer, Quantitative 801 ng/mlDDU (0-243) H 08/22/16 07:00 Puncture Site Lba 08/22/16 18:35 pCO2 41 mm/Hg (35-45) 08/22/16 18:35 pO2 415 mm/Hg (80-100) H 08/22/16 18:35 HCO3 23.3 mmol/L (21-28) 08/22/16 18:35 ABG pH 7.36 (7.35-7.45) 08/22/16 18:35 ABG Total CO2 24.5 mmol/L (22-28) 08/22/16 18:35 ABG O2 Saturation 99.8 % (95-98) H 08/22/16 18:35 ABG Base Excess -2.2 mmol/L (-2.0-3.0) L 08/22/16 18:35 Gael Test Na 08/22/16 18:35 ABG Potassium 3.9 mmol/L (3.6-5.2) 08/22/16 18:35 A-a O2 Difference 247.0 mm/Hg 08/22/16 18:35 Respiratory Index 0.6 08/22/16 18:35 Sodium 137.0 mmol/l (132-148) 08/22/16 18:35 Chloride 106.0 mmol/L (98-107) 08/22/16 18:35 Glucose 125 mg/dl (65-105) H 08/22/16 18:35 Lactate 1.6 mmol/L (0.7-2.1) 08/22/16 18:35 FiO2 100.0 % 08/22/16 18:35 Inspiratory BiPAP 20 08/22/16 18:35 Expiratory BiPAP 10 08/22/16 18:35 Sodium 136 mmol/L (132-148) 08/29/16 08:09 Potassium 4.1 mmol/L (3.6-5.2) 08/29/16 08:09 Chloride 97 mmol/L (98-107) L 08/29/16 08:09 Carbon Dioxide 29 mmol/L (22-30) 08/29/16 08:09 Anion Gap 14 (10-20) 08/29/16 08:09 BUN 15 mg/dL (7-17) 08/29/16 08:09 Creatinine 0.7 MG/DL (0.7-1.2) 08/29/16 08:09 Est GFR ( Amer) > 60 08/29/16 08:09 Est GFR (Non-Af Amer) > 60 08/29/16 08:09 POC Glucose (mg/dL) 128 mg/dL (65-110) H 08/29/16 12:00 Random Glucose 92 mg/dL (65-105) 08/29/16 08:09 Calcium 9.3 mg/dl (8.6-10.4) 08/29/16 08:09 Phosphorus 4.1 mg/dL (2.5-4.5) 08/29/16 08:09 Magnesium 1.9 mg/dL (1.6-2.3) 08/29/16 08:09 Total Bilirubin 0.8 mg/dL (0.2-1.3) 08/29/16 08:09 AST 20 U/L (14-36) 08/29/16 08:09 ALT 14 U/L (9-52) 08/29/16 08:09 Alkaline Phosphatase 101 U/L (38-126) 08/29/16 08:09 Total Creatine Kinase 45 U/L (30-135) 08/23/16 06:53 CK-MB (Mass) 1.74 ng/mL (0.0-3.38) 08/23/16 06:53 Troponin I < 0.0120 ng/mL (0.00-0.120) 08/22/16 07:00 Troponin I, Quant 0.0380 ng/mL (0.00-0.120) 08/23/16 06:53 NT-Pro-B Natriuret Pep 3540 pg/mL (0-900) H 08/22/16 07:00 Total Protein 7.5 g/dL (6.3-8.3) 08/29/16 08:09 Albumin 3.7 g/dL (3.5-5.0) 08/29/16 08:09 Globulin 3.8 gm/dL (2.2-3.9) 08/29/16 08:09 Albumin/Globulin Ratio 1.0 (1.0-2.1) 08/29/16 08:09 Arterial Blood Potassium 3.9 mmol/L (3.6-5.2) 08/22/16 18:35 - Hospital Course Hospital Course: On admission: This is an 81 year old female with PMHx significant for A.fib, HTN, DM, COPD, CHF, and RA - presenting c/o SOB since last night. She describes the SOB as mild last night, but worsened this morning, prompting her daughter to call for an ambulance. Patient was brought to the ED via ACLS, was found hypoxic at 88%, and received Lasix and Nitro in route to the ED. Patient was discharged last week s/p ICD placement on 08/16/[address] Gustafson. On that same admission, patient was intubated in the ED with time spent in the ICU. Previously, the patient has multiple admissions to the hospital for CHF exacerbations, pulmonary edema, and pneumonia. Currently denies chest pain, SOB, or any additional complaints. She is actively requesting food and Xanax. Patient is a poor historian, and is currently only AAOx1 (oriented to herself, not place or time). Hospital course: Patient was hypoxemic on admission requiring BiPAP therapy. Patients chronic systolic heart failure also monitored. Patient had increasing shortness of breath for which critical care team was consulted. Patient was continued on BiPAP therapy and monitored. Patient had stent placement of LAD due to occlusive disease noted on prior cath. Dr. Gustafson consulted for EP and AICD found to be working appropriately with no issues. Patient's symptoms improved and she was deemed stable for discharge. Patient was asked to follow up with ben day artist, Dr. Cunningham and PMD upon discharge. - Date & Time of H&P Date of H&P: 08/29/16 Time of H&P: 16:24 Discharge Exam - Head Exam Head Exam: ATRAUMATIC, NORMAL INSPECTION - Eye Exam Eye Exam: EOMI - ENT Exam ENT Exam: Mucous Membranes Moist - Respiratory Exam Respiratory Exam: Clear to PA & Lateral, NORMAL BREATHING PATTERN. absent: Accessory Muscle Use, Rales, Rhonchi, Wheezes, Respiratory Distress - Cardiovascular Exam Cardiovascular Exam: REGULAR RHYTHM, +S1, +S2. absent: Diastolic murmur, Gallop , Rubs, Systolic Murmur - GI/Abdominal Exam GI & Abdominal Exam: Normal Bowel Sounds, Soft. absent: Distended, Firm, Guarding, Organomegaly, Rigid, Tenderness - Extremities Exam Additional comments: no edema or tenderness - Neurological Exam Neurological exam: Alert, Oriented x3 - Psychiatric Exam Psychiatric exam: Normal Affect, Normal Mood - Skin Skin Exam: Dry, Intact, Normal Color, Warm Discharge Plan - Discharge Medications Prescriptions: Aspirin [Aspirin Chewable] 81 mg PO DAILY #30 tab Benzonatate [Tessalon Perles] 100 mg PO TID PRN #30 sgl PRN Reason: cough Bisacodyl [Dulcolax] 5 mg PO DAILY PRN #30 PRN Reason: constipation Carvedilol [Coreg] 6.25 mg PO BID #60 tab Clopidogrel [Plavix] 75 mg PO DAILY #30 tab Famotidine [Pepcid] 20 mg PO DAILY #30 tab Ferrous Sulfate [Feosol] 325 mg PO BID #60 tab Furosemide [Lasix] 40 mg PO BID #60 tablet Lancets/Blood Glucose Strips [Fora [id number] Strp-Lnct] 1 each BRK #90 combo..pkg Simvastatin 20 mg PO DAILY #30 tablet - Follow Up Plan Condition: GUARDED Disposition: HOME/ ROUTINE Instructions: Heart Failure (DC), Pulmonary Edema (DC), Heart Healthy Diet (DC) , Low Sodium Diet (DC) Additional Instructions: Chest CT - small nodules in apicies --> follow up with PMD and repeat chest CT in 6 months (February 2017) Patient is to follow up with cardiology Dr. Cunningham upon discharge and to follow up with private medical doctor, Dr. Beck in one week Referrals: Gisselle Beck MD [Staff Provider] - 1 Week Malena Cunningham MD [Staff Provider] - 1 Week <Harriet Montemayor V - Last Filed: 08/30/16 08:10> Provider - Provider Date of Admission: 08/22/16 11:03 Attending physician: Sean Fermin MD Hospital Course - Lab Results Lab Results: Micro Results 08/26/16 14:00 Naris MRSA Culture - Final MRSA NOT DETECTED 08/22/16 Unknown Naris MRSA Culture (Admit) - Final MRSA NOT DETECTED Most Recent Lab Values WBC 7.8 K/uL (4.8-10.8) 08/29/16 08:09 RBC 4.13 Mil/uL (3.80-5.20) 08/29/16 08:09 Hgb 9.5 g/dL (11.0-16.0) L 08/29/16 08:09 Hct 30.3 % (34.0-47.0) L 08/29/16 08:09 MCV 73.4 fL (81.0-99.0) L 08/29/16 08:09 MCH 23.1 pg (27.0-31.0) L 08/29/16 08:09 MCHC 31.4 g/dL (33.0-37.0) L 08/29/16 08:09 RDW 19.4 % (11.5-14.5) H 08/29/16 08:09 Plt Count 275 K/uL (130-400) 08/29/16 08:09 MPV 10.0 fL (7.2-11.7) 08/29/16 08:09 Neut % (Auto) 57.5 % (50.0-75.0) 08/29/16 08:09 Lymph % (Auto) 25.3 % (20.0-40.0) 08/29/16 08:09 Fulton % (Auto) 12.1 % (0.0-10.0) H 08/29/16 08:09 Eos % (Auto) 3.7 % (0.0-4.0) 08/29/16 08:09 Baso % (Auto) 1.4 % (0.0-2.0) 08/29/16 08:09 Neut # 4.5 K/uL (1.8-7.0) 08/29/16 08:09 Lymph # 2.0 K/uL (1.0-4.3) 08/29/16 08:09 Fulton # 0.9 K/uL (0.0-0.8) H 08/29/16 08:09 Eos # 0.3 K/uL (0.0-0.7) 08/29/16 08:09 Baso # 0.1 K/uL (0.0-0.2) 08/29/16 08:09 D-Dimer, Quantitative 801 ng/mlDDU (0-243) H 08/22/16 07:00 Puncture Site Lba 08/22/16 18:35 pCO2 41 mm/Hg (35-45) 08/22/16 18:35 pO2 415 mm/Hg (80-100) H 08/22/16 18:35 HCO3 23.3 mmol/L (21-28) 08/22/16 18:35 ABG pH 7.36 (7.35-7.45) 08/22/16 18:35 ABG Total CO2 24.5 mmol/L (22-28) 08/22/16 18:35 ABG O2 Saturation 99.8 % (95-98) H 08/22/16 18:35 ABG Base Excess -2.2 mmol/L (-2.0-3.0) L 08/22/16 18:35 Gael Test Na 08/22/16 18:35 ABG Potassium 3.9 mmol/L (3.6-5.2) 08/22/16 18:35 A-a O2 Difference 247.0 mm/Hg 08/22/16 18:35 Respiratory Index 0.6 08/22/16 18:35 Sodium 137.0 mmol/l (132-148) 08/22/16 18:35 Chloride 106.0 mmol/L (98-107) 08/22/16 18:35 Glucose 125 mg/dl (65-105) H 08/22/16 18:35 Lactate 1.6 mmol/L (0.7-2.1) 08/22/16 18:35 FiO2 100.0 % 08/22/16 18:35 Inspiratory BiPAP 20 08/22/16 18:35 Expiratory BiPAP 10 08/22/16 18:35 Sodium 136 mmol/L (132-148) 08/29/16 08:09 Potassium 4.1 mmol/L (3.6-5.2) 08/29/16 08:09 Chloride 97 mmol/L (98-107) L 08/29/16 08:09 Carbon Dioxide 29 mmol/L (22-30) 08/29/16 08:09 Anion Gap 14 (10-20) 08/29/16 08:09 BUN 15 mg/dL (7-17) 08/29/16 08:09 Creatinine 0.7 MG/DL (0.7-1.2) 08/29/16 08:09 Est GFR ( Amer) > 60 08/29/16 08:09 Est GFR (Non-Af Amer) > 60 08/29/16 08:09 POC Glucose (mg/dL) 128 mg/dL (65-110) H 08/29/16 12:00 Random Glucose 92 mg/dL (65-105) 08/29/16 08:09 Calcium 9.3 mg/dl (8.6-10.4) 08/29/16 08:09 Phosphorus 4.1 mg/dL (2.5-4.5) 08/29/16 08:09 Magnesium 1.9 mg/dL (1.6-2.3) 08/29/16 08:09 Total Bilirubin 0.8 mg/dL (0.2-1.3) 08/29/16 08:09 AST 20 U/L (14-36) 08/29/16 08:09 ALT 14 U/L (9-52) 08/29/16 08:09 Alkaline Phosphatase 101 U/L (38-126) 08/29/16 08:09 Total Creatine Kinase 45 U/L (30-135) 08/23/16 06:53 CK-MB (Mass) 1.74 ng/mL (0.0-3.38) 08/23/16 06:53 Troponin I < 0.0120 ng/mL (0.00-0.120) 08/22/16 07:00 Troponin I, Quant 0.0380 ng/mL (0.00-0.120) 08/23/16 06:53 NT-Pro-B Natriuret Pep 3540 pg/mL (0-900) H 08/22/16 07:00 Total Protein 7.5 g/dL (6.3-8.3) 08/29/16 08:09 Albumin 3.7 g/dL (3.5-5.0) 08/29/16 08:09 Globulin 3.8 gm/dL (2.2-3.9) 08/29/16 08:09 Albumin/Globulin Ratio 1.0 (1.0-2.1) 08/29/16 08:09 Arterial Blood Potassium 3.9 mmol/L (3.6-5.2) 08/22/16 18:35 Attending/Attestation - Attestation I have personally seen and examined this patient.: Yes I have fully participated in the care of the patient.: Yes I have reviewed all pertinent clinical information, including history, physical exam and plan: Yes Notes (Text): Hospitalist Covering Dr. Beck's service Per ICU consult note "HPI: 81 year old female with PMHx significant for A.fib, HTN, DM, COPD, CHF, and RA - presenting c/o SOB since last night. She describes the SOB as mild last night, but worsened this morning, prompting her daughter to call for an ambulance. Patient was brought to the ED via ACLS, was found hypoxic at 88%, and received Lasix and Nitro in route to the ED. Patient was discharged last week s/p ICD placement on 08/16/[address] Gustafson. On that same admission, patient was intubated in the ED with time spent in the ICU. Previously, the patient has multiple admissions to the hospital for CHF exacerbations, pulmonary edema, and pneumonia. Currently denies chest pain, SOB, or any additional complaints. She is actively requesting food and xanax. Patient is a poor historian, and is currently only AOx1 (oriented to herself, not place or time). ED course: KCl 10meq, Kdur40, Morphine 2mg, Nitro bid 2%, EKG LBBB nsr w/PVCs + Supraventricular complexes, CT chest negative for PE. ICU Course: Patient was brought in on BiPAP in respiratory distress. Patient was given 40mg ivp stat lasix and 2mg stat morphine and started on nitro gtt. Patient satting 100% on BiPAP, HR 82bpm, BP 119/74, RR 36brpm Past medical hx: Afib, HTN, DM, COPD, CHF, RA Past Surgical Hx: ICD placed 08/16/16; Cholecystectomy; Coronary stent (proximal RCA) placed in June 2016 Allergies: moxifloxacin Family hx: Psychiatric : daughter has bipolar disorder; Medical: unknown" Patient was admitted to the intensive care unit for acute respiratory distress, prior history of acute respiratory failure requiring intubation and acute on chronic systolic heart failure exacerbation. Cardiology consulted on the case. Palliative care consulted. During the course of hospitalization, patient transferred to [facility] for PCI with Dr. Cunningham for mid LAD with GARRY and came back. Patient stabilized from the ICU and transferred to the telemetry floor. Patient medically stable day of discharge. Per cardiology, patient stable for discharge. Discussed with case management and social work, patient does not have eligible services for rehab and family has refuse additional services offered including adult day care. Note: Per discussion with family, patient's items such as jewelry and other items they report they left at [facility] during the transfer and need to retrieve them. Patient provided scripts for all her medications: 1) Aspirin [Aspirin Chewable] 81 mg PO DAILY #30 tab 2) Benzonatate [Tessalon Perles] 100 mg PO TID PRN #30 sgl PRN Reason: cough 3) Bisacodyl [Dulcolax] 5 mg PO DAILY PRN #30 PRN Reason: constipation 4) Carvedilol [Coreg] 6.25 mg PO BID #60 tab 5) Clopidogrel [Plavix] 75 mg PO DAILY #30 tab 6) Famotidine [Pepcid] 20 mg PO DAILY #30 tab 7) Ferrous Sulfate [Feosol] 325 mg PO BID #60 tab 8) Furosemide [Lasix] 40 mg PO BID #60 tablet 9) Lancets/Blood Glucose Strips [Fora [id number] [facility]] 1 each BRK # 90 combo..pkg 10) Simvastatin 20 mg PO DAILY #30 tablet Patient has home oxygen provided to them on prior discharge and need to refill script. Discussed with case management prior to discharge. Patient recommended to follow-up with cardiology and PMD: Dr. Beck upon discharge. This is a summary of patient's hospitalization. Please review EMR for further details.
--- NOTE | 2016-10-09 23:52 | HP ---
HISTORY OF PRESENT ILLNESS: The patient was admitted to the hospital with chief complaint of shortness of breath. The patient was seen and examined. The patient came into the hospital, advised admission. PHYSICAL EXAMINATION: GENERAL: The patient is awake, alert, and oriented. VITAL SIGNS: Temperature 98 and pulse 98. HEENT: Within normal limits. NECK: Supple. CHEST: Symmetrical. HEART: Regular. ABDOMEN: Soft. EXTREMITIES: No edema. IMPRESSION: The patient suffers from congestive heart failure. The patient needs bed rest and supportive care with intravenous Lasix with cardiology evaluation done on 10/11/2016.
== END 2016-08-29 15:20 | disposition home health service (06) | DRG 291 ==
LOC: C.ER 06:30 → C.9OBSV 07:30 → C.9E 11:03 → OBSVTOIN 11:03 → C.6T 15:30 → C.9E 16:30 → C.9I 16:46 → C.6T 08-26 12:44
PROVIDERS: ADMIT Student in an Organized Health Care Education/Training Program; ATTEND Internal Medicine
PROC: 5A09357 Assistance with Respiratory Ventilation, Less than 24 Consecutive Hours, Continuous Positive Airway Pressure (ICD-10-PCS; principal; 2016-08-22)
DX: I11.0 Hypertensive heart disease with heart failure (principal); I50.43 Acute on chronic combined systolic (congestive) and diastolic (congestive) heart failure; J96.91 Respiratory failure, unspecified with hypoxia; I16.1 Hypertensive emergency; I27.2 Other secondary pulmonary hypertension; E11.9 Type 2 diabetes mellitus without complications; J98.11 Atelectasis; I07.1 Rheumatic tricuspid insufficiency; E87.6 Hypokalemia; J44.9 Chronic obstructive pulmonary disease, unspecified; I25.10 Atherosclerotic heart disease of native coronary artery without angina pectoris; I48.91 Unspecified atrial fibrillation; I25.5 Ischemic cardiomyopathy; I44.7 Left bundle-branch block, unspecified; M06.9 Rheumatoid arthritis, unspecified; D64.9 Anemia, unspecified; M81.0 Age-related osteoporosis without current pathological fracture; F41.9 Anxiety disorder, unspecified; F03.90 Unspecified dementia, unspecified severity, without behavioral disturbance, psychotic disturbance, mood disturbance, and anxiety; E78.00 Pure hypercholesterolemia, unspecified; Z79.82 Long term (current) use of aspirin; Z79.899 Other long term (current) drug therapy; Z87.01 Personal history of pneumonia (recurrent); Z90.49 Acquired absence of other specified parts of digestive tract; Z95.5 Presence of coronary angioplasty implant and graft; Z95.810 Presence of automatic (implantable) cardiac defibrillator; I25.2 Old myocardial infarction

== ENCOUNTER 2016-09-05 06:43 | Inpatient (IN) | payer MEDICARE, MEDICAID ==
[2016-09-05 06:43] VITALS: BMI 18.1
[2016-09-05] MEDS ORDERED: Nitroglycerin 50mg in D5W 50 MG/250 ML BOTTLE IV ONE (06:56)
[2016-09-05] MEDS ORDERED: Lidocaine 1% Inj (20ml) ONE (07:13)
[2016-09-05] MEDS ORDERED: Nitroglycerin 50mg in D5W 50 MG/250 ML BOTTLE IV SCH (07:15)
[2016-09-05 07:57] LABS: BASO # 0.2 K/uL (0.0-0.2); BASO % 1.7 % (0.0-2.0); EOS # 0.3 K/uL (0.0-0.7); EOS % 2.7 % (0.0-4.0); LYMPH # 4.2 K/uL (1.0-4.3); LYMPH % 41.8 % (20.0-40.0); MEAN CORPUSCULAR HEMOGLOBIN 23.6 pg (27.0-31.0); MEAN CORPUSCULAR HGB CONC 30.9 g/dL (33.0-37.0); MEAN PLATELET VOLUME 9.7 fL (7.2-11.7); MONO # 0.7 K/uL (0.0-0.8); MONO % 7.2 % (0.0-10.0); NEUT # 4.6 K/uL (1.8-7.0); NEUT % 46.6 % (50.0-75.0); NRBC % 0.1 % (0.0-2.0); RBC 5.3 Mil/uL (3.80-5.20); RED CELL DISTRIBUTION WIDTH 19.9 % (11.5-14.5); WHITE BLOOD COUNT 9.9 K/uL (4.8-10.8)
[2016-09-05 08:01] LABS: HEMOGLOBIN 12.5 g/dL (11.0-16.0); MEAN CELL VOLUME 76.3 fL (81.0-99.0)
[2016-09-05 08:02] LABS: ALBUMIN 3.9 g/dL (3.5-5.0)
[2016-09-05 08:04] LABS: INR 1.1; PROTHROMBIN TIME 12.7 SECONDS (9.7-12.2)
[2016-09-05 08:05] LABS: GFR AFRICAN-AMERICAN > 60; GFR NON-AFRICAN AMERICAN 53
[2016-09-05 08:06] LABS: ALT/SGPT 16 U/L (9-52); AST/SGOT 31 U/L (14-36); BLOOD UREA NITROGEN 14 mg/dL (7-17); CALCIUM 9.1 mg/dl (8.6-10.4); MAGNESIUM 2.2 mg/dL (1.6-2.3)
--- NOTE | 2016-09-05 08:13 | C.PDOC ---
History Of Present Illness Patient is a 81 y/o female, whose PMHX includes HTN, CHF, COPD, Afib, CAD, AICD , and diabetes, that presents to the ED for evaluation of chest pain, and shortness of breath. Code heart was initially called by Dr. Kunz. Copy of EKG was sent to Dr. Cheung at 6:53, who states patient "does not meet code heart criteria". Patient appears to be hypoxic, tachycardic, and in respiratory distress. HPI limited due to patient clinical condition. PMD: Dr. Beck Database Security Administrator: Dr. Cunningham Time Seen by Provider: 09/05/16 07:00 Chief Complaint (Nursing): Chest Pain History Per: Patient History/Exam Limitations: clinical condition Current Symptoms Are (Timing): Still Present Quality: "Pain" Additional History Per: Patient Past Medical History Reviewed: Historical Data, Nursing Documentation, Vital Signs Vital Signs: Last Vital Signs Temp 97.6 F 09/05/16 06:48 Pulse 90 09/05/16 09:59 Resp 29 H 09/05/16 09:59 BP 104/51 L 09/05/16 09:59 Pulse Ox 100 09/05/16 09:59 - Medical History PMH: Anxiety, Arthritis, Asthma, Atrial Fibrillation, CAD, CHF, COPD, Dementia, Diabetes, Gall Bladder Disease, HTN, Hypercholesterolemia, Osteoporosis, Pneumonia (08/2015), Rheumatoid Arthritis Denies: Anemia, Bipolar Disorder, Depression, HIV, Hyperthyroidism, Hypothyroidism, Kidney Stones, Post Traumatic Stress Disorder, Chronic Kidney Disease, Schizophrenia, Sickle Cell Disease, Sexually Transmitted Disease Surgical History: Cholecystectomy, Coronary Stent (proximal RCA stent), Pacemaker - [facility] Procedures ASSISTANCE WITH RESPIRATORY VENTILATION, <24 HRS, CPAP (08/22/16) ASSISTANCE WITH RESPIRATORY VENTILATION, >96 HRS, CPAP (07/04/16) CONTINUOUS INVASIVE MECHANICAL VENTILATION <96 CONSEC HRS (08/07/12) DILATION OF 1 COR ART WITH DRUG-ELUT INTRA, PERC APPROACH (12/29/15) FLUOROSCOPY OF LEFT HEART USING LOW OSMOLAR CONTRAST (08/02/16) FLUOROSCOPY OF MULT COR ART USING L OSM CONTRAST (08/02/16) INJECT/INFUSE NEC (02/11/14) INSERT INFUSION DEV IN R INT JUGULAR VEIN, PERC (08/02/16) INSERTION OF ENDOTRACHEAL AIRWAY INTO TRACHEA, VIA OPENING (08/02/16) INSPECTION OF LARYNX, ENDO (08/02/16) INTRODUCTION OF NUTRITIONAL INTO UP GI, VIA OPENING (08/02/16) LAPAROSCOPIC CHOLECYSTECTOMY (08/07/12) MEASURE OF CARDIAC SAMPL & PRESSURE, L HEART, PERC APPROACH (08/02/16) NEBULIZER THERAPY (09/10/13) OXYGEN ENRICHMENT NEC (08/07/12) RESPIRATORY VENTILATION, 24-96 CONSECUTIVE HOURS (08/02/16) RESPIRATORY VENTILATION, LESS THAN 24 CONSECUTIVE HOURS (06/19/16) CAODAISM OF CARDIAC RHYTHM, SINGLE (08/02/16) VITAL CAPACITY DETERMIN (08/07/12) Family History: States: Unknown Family Hx - Social History Hx Tobacco Use: No Hx Alcohol Use: No Hx Substance Use: No - Immunization History Hx Tetanus Toxoid Vaccination: No Hx Influenza Vaccination: No Hx Pneumococcal Vaccination: No Review Of Systems Review Of Systems: ROS cannot be obtained secondary to pt's inabilty to answer questions. Cardiovascular: Positive for: Chest Pain Respiratory: Positive for: Shortness of Breath Physical Exam - Physical Exam Appears: Chronically Ill, Other (In respiratory distress) Skin: Normal Color, Warm, Dry Head: Atraumatic, Normacephalic Eye(s): bilateral: Normal Inspection Neck: Normal ROM, Supple Chest: Symmetrical Cardiovascular: Rhythm Regular (tachycardic), No Murmur Respiratory: Rales, No Rhonchi, No Wheezing, Other (Pt speaking in 2-3 words; tachypneic) Gastrointestinal/Abdominal: Soft, No Tenderness, No Mass, No Distention Extremity: Normal ROM (Moving all extremitites) Extremity: Bilateral: Atraumatic Neurological/Psych: Oriented x3, Other (neuro intact) ED Course And Treatment - Laboratory Results Result Diagrams: 09/05/16 07:13 09/05/16 07:50 O2 Sat by Pulse Oximetry: 100 (on RA) Pulse Ox Interpretation: Normal - Radiology CXR: Interpreted by Me, Viewed By Me CXR Interpretation: Yes: Infiltrates (patchy infiltrates consistent with CHF), Other (pulmonary venous congestion) Critical Care Time - Critical Care Note Total Time (in mins): 30 Documented critical care: time excludes all time spent performing seperately billable procedures. Medical Decision Making Medical Decision Making: Patient arrived to ED with Bipap in place. Nitro drip started, Lasix, and Aspirin given. AICD appeared to fire during evaluation at bedside. Pending labs, and ICU admission Labs and cxray results consistent with CHF Spoke to Dr. Louie, who accepted patient to ICU. Spoke to PMD Dr. Beck Disposition - Disposition Disposition: HOSPITALIZED Disposition Time: 08:44 Condition: CRITICAL - Clinical Impression Clinical Impression: CHF (congestive heart failure) - Scribe Statement The provider has reviewed the documentation as recorded by the Scribe Lito Loza All medical record entries made by the Joviibronal were at my direction and personally dictated by me. I have reviewed the chart and agree that the record accurately reflects my personal performance of the history, physical exam, medical decision making, and the department course for this patient. I have also personally directed, reviewed, and agree with the discharge instructions and disposition.
[2016-09-05 08:14] LABS: B-TYPE NATRIURETIC PEPTIDE 5610 pg/mL (0-900); CK-MB 0.74 ng/mL (0.0-3.38)
--- NOTE | 2016-09-05 08:50 | RAD ---
HISTORY: chest pain COMPARISON: 08/22/2016 FINDINGS: LUNGS: Worsening diffuse confluent airspace opacification and consolidation throughout both lungs. Linear lucency along the lateral aspect of the right lower lung zone may represent Mach artifact. Biapical pleural thickening with upper lobe granulomatous changes. PLEURA: As above. CARDIOVASCULAR: Left-sided pacemaker. OSSEOUS STRUCTURES: Degenerative changes in the spine and shoulders. Scoliotic curvature of the spine. VISUALIZED UPPER ABDOMEN: Normal. OTHER FINDINGS: None. IMPRESSION: Worsening diffuse confluent airspace opacification and consolidation throughout both lungs. Linear lucency along the lateral aspect of the right lower lung zone may represent Mach artifact. Biapical pleural thickening with upper lobe granulomatous changes.
--- NOTE | 2016-09-05 10:25 | CP.PCM.CON ---
History of Present Illness - History of Present Illness History of Present Illness: Cardiology Consult note for Dr. Gustafson Past Patient History - Infectious Disease Hx of Infectious Diseases: None - Tetanus Immunizations Tetanus Immunization: Unknown - Past Medical History & Family History Past Medical History?: Yes - Past Social History Smoking Status: Never Smoked - CARDIAC Hx Atrial Fibrillation: Yes Hx Congestive Heart Failure: Yes Hx Hypercholesterolemia: Yes Hx Hypertension: Yes Hx Pacemaker: Yes - PULMONARY Hx Asthma: Yes Hx Chronic Obstructive Pulmonary Disease (COPD): Yes Hx Pneumonia: Yes (08/2015) - NEUROLOGICAL Hx Dementia: Yes - HEENT Hx HEENT Problems: No - RENAL Hx Chronic Kidney Disease: No Hx Kidney Stones: No - ENDOCRINE/METABOLIC Hx Hyperthyroidism: No Hx Hypothyroidism: No - HEMATOLOGICAL/ONCOLOGICAL Hx Anemia: No Hx Human Immunodeficiency Virus (HIV): No Hx Sickle Cell Disease: No - INTEGUMENTARY Hx Dermatological Problems: No - MUSCULOSKELETAL/RHEUMATOLOGICAL Hx Arthritis: Yes Hx Osteoporosis: Yes Hx Rheumatoid Arthritis: Yes - GASTROINTESTINAL Hx Gall Bladder Disease: Yes - GENITOURINARY/GYNECOLOGICAL Hx Sexually Transmitted Disorders: No - PSYCHIATRIC Hx Anxiety: Yes Hx Bipolar Disorder: No Hx Depression: No Hx Post Traumatic Stress Disorder: No Hx Schizophrenia: No Hx Substance Use: No - SURGICAL HISTORY Hx Cholecystectomy: Yes Hx Coronary Stent: Yes (proximal RCA stent) - ANESTHESIA Hx Anesthesia: Yes Hx Anesthesia Reactions: No Hx Malignant Hyperthermia: No Meds Allergies/Adverse Reactions: Allergies Allergy/AdvReac Type Severity Reaction Status Date / Time moxifloxacin HCl Allergy Severe ANAPHYLAXIS Verified 09/05/16 07:00 [From Avelox] - Medications Medications: Current Medications Aspirin (Aspirin Supp) 300 mg MA DAILY BLAKE Nitroglycerin/Dextrose (Nitroglycerin 50 Mg/250 Ml D5w) 50 mg in 250 mls @ 1.5 mls/hr IV .Q24H BLAEK; 5 MCG/MIN PRN Reason: Protocol Last Admin: 09/05/16 06:50 Dose: 1.5 mls/hr Results - Vital Signs Recent Vital Signs: Last Vital Signs Temp 97.6 F 09/05/16 06:48 Pulse 90 09/05/16 09:59 Resp 29 H 09/05/16 09:59 BP 104/51 L 09/05/16 09:59 Pulse Ox 100 09/05/16 10:23 - Labs Result Diagrams: 09/05/16 07:13 09/05/16 07:50
[2016-09-05 10:27] LABS: SQUAMOUS EPITHIAL < 1 /hpf (0-5); URINE BACTERIA RARE (<OCC); URINE BILIRUBIN NEGATIVE (NEGATIVE); URINE BLOOD NEGATIVE (NEGATIVE); URINE CLARITY Clear (Clear); URINE COLOR Yellow (YELLOW); URINE GLUCOSE (UA) NORMAL (Normal); URINE HYALINE CAST 0-2 /lpf (0-2); URINE LEUKOCYTE ESTERASE NEG Leu/uL (Negative); URINE NITRATE NEGATIVE (NEGATIVE); URINE PROTEIN 2+ mg/dL (NEGATIVE)
[2016-09-05 10:30] LABS: ARTERIAL BLOOD GAS HCO3 19.6 mmol/L (21-28); ARTERIAL BLOOD GAS HEMOGLOBIN 10.7 g/dL (11.7-17.4); ARTERIAL BLOOD GAS O2 SAT 99.6 % (95-98); ARTERIAL BLOOD GAS PCO2 36 mm/Hg (35-45); ARTERIAL BLOOD GAS PH 7.32 (7.35-7.45); ARTERIAL BLOOD GAS PO2 255 mm/Hg (80-100); ARTERIAL BLOOD GAS TCO2 19.6 mmol/L (22-28)
--- NOTE | 2016-09-05 12:41 | CP.CCUPN ---
<BetoAngeline SRita - Last Filed: 09/05/16 18:28> CCU Subjective - Physician Review Subjective (Free Text): 09/05/16 18:28 Patient seen and examined in the ED. Patient stated she had pain all over and had difficulty breathing. Patient was started on biPap in the ED. Once the patient arrived to the ICU she was more comfortable. Patient stated in the emergency room that she did not want to be intubated. CCU Objective - Vital Signs / Intake & Output Vital Signs (Last 4 hours): Vital Signs Pulse Resp BP Pulse Ox 09/05/16 12:11 93 H 33 H 102/65 100 09/05/16 11:42 94 H 28 H 96/57 L 100 09/05/16 10:54 91 H 40 H 113/76 98 09/05/16 10:23 100 09/05/16 09:59 90 29 H 104/51 L 100 09/05/16 09:15 105 H 24 126/91 H 100 - Physical Exam Head: Positive for: Normocephalic Extroacular Muscles: Positive for: EOMI Conjunctiva: Positive for: Normal Mouth: Positive for: Moist Mucous Membranes Respiratory/Chest: Positive for: Respiratory Distress, Rales. Negative for: Clear to Auscultation Cardiovascular: Positive for: Regular Rate and Rhythm, Normal S1, S2 Abdomen: Positive for: Normal Bowel Sounds. Negative for: Tenderness, Distention Lower Extremity: Positive for: Normal Inspection. Negative for: Tenderness, Swelling Neurological: Positive for: Speech Normal Skin: Positive for: Warm, Dry. Negative for: Rashes Psychiatric: Positive for: Alert, Oriented x 3, Agitated (agitated due to pain and respiratory distress) - Medications Active Medications: Active Medications Generic Name Dose Route Start Last Admin Trade Name Freq PRN Reason Stop Dose Admin Aspirin 300 mg 09/05/16 10:00 Aspirin Supp NE DAILY BLAKE Nitroglycerin/Dextrose 50 mg in 250 mls @ 1.5 mls/hr 09/05/16 07:15 09/05/16 10:52 Nitroglycerin 50 Mg/250 Ml D5w IV 20 mcg/min .Q24H BLAKE 6 mls/hr Protocol Titration 5 MCG/MIN - Patient Studies Lab Studies: Lab Studies 09/05/16 09/05/16 Range/Units 10:15 10:06 Puncture Site Lb pCO2 36 (35-45) mm/Hg pO2 255 H (80-100) mm/Hg HCO3 19.6 L (21-28) mmol/L ABG pH 7.32 L (7.35-7.45) ABG Total CO2 19.6 L (22-28) mmol/L ABG O2 Saturation 99.6 H (95-98) % ABG Base Excess -6.9 L (-2.0-3.0) mmol/L ABG Hemoglobin 10.7 L (11.7-17.4) g/dL ABG Carboxyhemoglobin 1.5 (0.5-1.5) % POC ABG HHb (Measured) 0.4 (0.0-5.0) % ABG Methemoglobin 1.2 (0.0-3.0) % Gael Test Na A-a O2 Difference 342.0 mm/Hg Respiratory Index 1.3 Hgb O2 Saturation 96.9 (95.0-98.0) % FiO2 90.0 % Inspiratory BiPAP 12 Expiratory BiPAP 6 Urine Color Yellow (YELLOW) Urine Clarity Clear (Clear) Urine pH 6.0 (5.0-8.0) Ur Specific [place] 1.021 (1.003-1.030) Urine Protein 2+ H (NEGATIVE) mg/dL Urine Glucose (UA) Normal (Normal) mg/dL Urine Ketones Negative (NEGATIVE) mg/dL Urine Blood Negative (NEGATIVE) Urine Nitrate Negative (NEGATIVE) Urine Bilirubin Negative (NEGATIVE) Urine Urobilinogen 4.0 H (0.2-1.0) mg/dL Ur Leukocyte Esterase Neg (Negative) Jose/uL Urine WBC (Auto) 2 (0-5) /hpf Urine RBC (Auto) 4 H (0-3) /hpf Ur Squamous Epith Cells < 1 (0-5) /hpf Urine Bacteria Rare (<OCC) Hyaline Casts 0-2 (0-2) /lpf Laboratory Results - last 24 hr 09/05/16 09/05/16 10:06 10:15 Puncture Site Lb pCO2 36 pO2 255 H HCO3 19.6 L ABG pH 7.32 L ABG Total CO2 19.6 L ABG O2 Saturation 99.6 H ABG Base Excess -6.9 L ABG Hemoglobin 10.7 L ABG Carboxyhemoglobin 1.5 POC ABG HHb (Measured) 0.4 ABG Methemoglobin 1.2 Gael Test Na A-a O2 Difference 342.0 Respiratory Index 1.3 Hgb O2 Saturation 96.9 FiO2 90.0 Inspiratory BiPAP 12 Expiratory BiPAP 6 Urine Color Yellow Urine Clarity Clear Urine pH 6.0 Ur Specific [place] 1.021 Urine Protein 2+ H Urine Glucose (UA) Normal Urine Ketones Negative Urine Blood Negative Urine Nitrate Negative Urine Bilirubin Negative Urine Urobilinogen 4.0 H Ur Leukocyte Esterase Neg Urine WBC (Auto) 2 Urine RBC (Auto) 4 H Ur Squamous Epith Cells < 1 Urine Bacteria Rare Hyaline Casts 0-2 EKG/Cardiology Studies: Cardiology / EKG Studies 09/05/16 06:50 EKG [ELECTROCARDIOGRAM] Stat Comment: Mode Of Transportation: BED Reason For Exam: cp Review of Systems - Review of Systems Systems not reviewed;Unavailable: Respiratory Distress Assessment/Plan - Assessment and Plan (Free Text) Assessment: Patient is a 81 y/o female, whose PMHX includes HTN, CHF, COPD, Afib, CAD, AICD , and diabetes, that presents to the ED for evaluation of chest pain, and shortness of breath. Plan: Neuro: -Alert and oriented 3 Pulm: - chest xray: worsening diffuse confluent airspace opacification and consolidation throughout both lungs. Linear lucency along the lateral aspect of the right lower lung zone may represent mach artifact. Biapical pleural thickening with uppoer lobe granulomatous changes. CV: BNP: 5610 - Nitroglycerin - Aspirin Heme: H/H: 12.5/40.4 PT/INR: 12.7/1.1 Renal: - BUN/Cr: 14/1.0 - Lasix 40mg GI: - Heart healthy/low carb diet ENDO: Accucheck ID: - UA: negative - f/u blood culture - f/u urine culture - f/u MRSA screen DVT proph - SCDs OT/PT Code status - DNR/DNI Case discussed with Dr. Liban Pérez PGY-1 <Gennaro Louie - Last Filed: 09/05/16 19:22> CCU Objective - Vital Signs / Intake & Output Vital Signs (Last 4 hours): Vital Signs Temp Pulse Resp BP Pulse Ox 09/05/16 18:40 102 H 21 100 09/05/16 18:36 107 H 24 105/87 97 09/05/16 18:30 106 H 21 100 09/05/16 18:20 99 H 24 100 09/05/16 18:10 102 H 27 H 100 09/05/16 18:00 107 H 30 H 100 09/05/16 17:50 110 H 30 H 100 09/05/16 17:40 103 H 19 100 09/05/16 17:36 103 H 21 104/71 100 09/05/16 17:30 102 H 14 100 09/05/16 17:20 99 H 19 100 09/05/16 17:10 97 H 22 100 09/05/16 17:00 102 H 24 99 09/05/16 16:50 99 H 20 100 09/05/16 16:40 97 H 20 100 09/05/16 16:35 97 H 18 137/62 100 09/05/16 16:30 97 H 27 H 100 09/05/16 16:20 97 H 27 H 100 09/05/16 16:12 94 H 09/05/16 16:10 98 H 11 L 100 09/05/16 16:00 97.4 F L 97 H 19 100 09/05/16 15:50 96 H 17 100 09/05/16 15:40 100 H 25 H 100 09/05/16 15:35 97 H 24 123/72 97 09/05/16 15:30 98 H 25 H 100 Intake and Output (Last 8hrs): Intake & Output 09/05/16 09/05/16 09/05/16 06:59 14:59 22:59 Intake Total 12 24 Output Total 100 180 Balance -88 -156 Weight 98 lb 1.691 oz Intake: Intake, IV Amount 12 24 Right Forearm 12 24 Output: Urine 100 180 Urethral (Hernandez) 100 180 Other: Voiding Method Indwelling Catheter - Medications Active Medications: Active Medications Generic Name Dose Route Start Last Admin Trade Name Freq PRN Reason Stop Dose Admin Aspirin 300 mg 09/05/16 15:45 09/05/16 15:58 Aspirin Supp NE 300 mg DAILY BLAKE Administration Nitroglycerin/Dextrose 50 mg in 250 mls @ 1.5 mls/hr 09/05/16 07:15 09/05/16 10:52 Nitroglycerin 50 Mg/250 Ml D5w IV 20 mcg/min .Q24H BLAKE 6 mls/hr Protocol Titration 5 MCG/MIN Lorazepam 1 mg 09/05/16 13:31 09/05/16 13:56 Ativan PO 1 mg Q12H PRN Administration Anxiety Nitroglycerin 1 ea 09/05/16 15:24 Nitro-Bid 2% Oint TOP Q6 PRN Pain, Mild (1-3) Pneumococcal Polyvalent Vaccine 0.5 ml 09/08/16 10:00 Pneumovax 23 Vaccine IM 09/08/16 10:01 .ONCE ONE - Patient Studies Lab Studies: Lab Studies 09/05/16 09/05/16 Range/Units 10:15 10:06 Puncture Site Lb pCO2 36 (35-45) mm/Hg pO2 255 H (80-100) mm/Hg HCO3 19.6 L (21-28) mmol/L ABG pH 7.32 L (7.35-7.45) ABG Total CO2 19.6 L (22-28) mmol/L ABG O2 Saturation 99.6 H (95-98) % ABG Base Excess -6.9 L (-2.0-3.0) mmol/L ABG Hemoglobin 10.7 L (11.7-17.4) g/dL ABG Carboxyhemoglobin 1.5 (0.5-1.5) % POC ABG HHb (Measured) 0.4 (0.0-5.0) % ABG Methemoglobin 1.2 (0.0-3.0) % Gael Test Na A-a O2 Difference 342.0 mm/Hg Respiratory Index 1.3 Hgb O2 Saturation 96.9 (95.0-98.0) % FiO2 90.0 % Inspiratory BiPAP 12 Expiratory BiPAP 6 Urine Color Yellow (YELLOW) Urine Clarity Clear (Clear) Urine pH 6.0 (5.0-8.0) Ur Specific [place] 1.021 (1.003-1.030) Urine Protein 2+ H (NEGATIVE) mg/dL Urine Glucose (UA) Normal (Normal) mg/dL Urine Ketones Negative (NEGATIVE) mg/dL Urine Blood Negative (NEGATIVE) Urine Nitrate Negative (NEGATIVE) Urine Bilirubin Negative (NEGATIVE) Urine Urobilinogen 4.0 H (0.2-1.0) mg/dL Ur Leukocyte Esterase Neg (Negative) Jose/uL Urine WBC (Auto) 2 (0-5) /hpf Urine RBC (Auto) 4 H (0-3) /hpf Ur Squamous Epith Cells < 1 (0-5) /hpf Urine Bacteria Rare (<OCC) Hyaline Casts 0-2 (0-2) /lpf Laboratory Results - last 24 hr 09/05/16 09/05/16 10:06 10:15 Puncture Site Lb pCO2 36 pO2 255 H HCO3 19.6 L ABG pH 7.32 L ABG Total CO2 19.6 L ABG O2 Saturation 99.6 H ABG Base Excess -6.9 L ABG Hemoglobin 10.7 L ABG Carboxyhemoglobin 1.5 POC ABG HHb (Measured) 0.4 ABG Methemoglobin 1.2 Gael Test Na A-a O2 Difference 342.0 Respiratory Index 1.3 Hgb O2 Saturation 96.9 FiO2 90.0 Inspiratory BiPAP 12 Expiratory BiPAP 6 Urine Color Yellow Urine Clarity Clear Urine pH 6.0 Ur Specific [place] 1.021 Urine Protein 2+ H Urine Glucose (UA) Normal Urine Ketones Negative Urine Blood Negative Urine Nitrate Negative Urine Bilirubin Negative Urine Urobilinogen 4.0 H Ur Leukocyte Esterase Neg Urine WBC (Auto) 2 Urine RBC (Auto) 4 H Ur Squamous Epith Cells < 1 Urine Bacteria Rare Hyaline Casts 0-2 EKG/Cardiology Studies: Cardiology / EKG Studies 09/05/16 06:50 EKG [ELECTROCARDIOGRAM] Stat Comment: Mode Of Transportation: BED Reason For Exam: cp Critical Care Progress Note - Nutrition Nutrition: Nutrition Category Date Time Status Heart Healthy Diet [DIET] Diets 09/05/16 Dinner Active Attending/Attestation - Attestation I have personally seen and examined this patient.: Yes I have fully participated in the care of the patient.: Yes I have reviewed all pertinent clinical information: Yes Notes (Text): 09/05/16 19:22 agree with above note during rounds in the am pt was examined and clinical decision was made and discussed with icu team
[2016-09-05] MEDS ORDERED: Nitroglycerin 2% Ointment Foilpak UD TOP PRN (15:24)
[2016-09-05] MEDS ORDERED: Pneumococcal 23-Valent Vaccine IM ONE (16:42)
[2016-09-06 06:22] LABS: BASO # 0.2 K/uL (0.0-0.2); BASO % 1.8 % (0.0-2.0); EOS % 0.4 % (0.0-4.0); HEMOGLOBIN 9.6 g/dL (11.0-16.0); LYMPH # 2.1 K/uL (1.0-4.3); LYMPH % 18.6 % (20.0-40.0); MEAN CELL VOLUME 73.6 fL (81.0-99.0); MEAN CORPUSCULAR HEMOGLOBIN 23.1 pg (27.0-31.0); MEAN CORPUSCULAR HGB CONC 31.4 g/dL (33.0-37.0); MEAN PLATELET VOLUME 9.9 fL (7.2-11.7); MONO # 1.1 K/uL (0.0-0.8); MONO % 9.3 % (0.0-10.0); NEUT # 7.9 K/uL (1.8-7.0); NEUT % 69.9 % (50.0-75.0); NRBC % 0.1 % (0.0-2.0); RBC 4.16 Mil/uL (3.80-5.20); RED CELL DISTRIBUTION WIDTH 19.2 % (11.5-14.5); WHITE BLOOD COUNT 11.3 K/uL (4.8-10.8)
[2016-09-06 06:36] LABS: ALBUMIN 3.6 g/dL (3.5-5.0)
[2016-09-06 06:39] LABS: ALT/SGPT 39 U/L (9-52); AST/SGOT 258 U/L (14-36); BLOOD UREA NITROGEN 20 mg/dL (7-17); GFR AFRICAN-AMERICAN > 60; GFR NON-AFRICAN AMERICAN 60
[2016-09-06 06:40] LABS: CALCIUM 8.7 mg/dl (8.6-10.4); MAGNESIUM 1.8 mg/dL (1.6-2.3)
[2016-09-06] MEDS ORDERED: Albuterol 0.083% Inhal Sol (2.5 mg/3 mL) UD INH PRN (08:44)
--- NOTE | 2016-09-06 10:37 | CP.CCUPN ---
<Abimael Kauffman - Last Filed: 09/06/16 10:38> CCU Subjective - Physician Review Events Since Last Encounter (Free Text): 09/06/16 10:33 Pt S&E. TERESAO. Reports less SOB. Still with mild pain radiating to back. Labs WNL today. O2 saturation 100% on 2L NC. Pt requests BIPAP intermittently when she gets very anxious. CCU Objective - Vital Signs / Intake & Output Vital Signs (Last 4 hours): Vital Signs Temp Pulse Resp BP Pulse Ox 09/06/16 08:00 97.6 F 98 H 20 101/60 99 09/06/16 07:00 94 H 20 107/64 100 Intake and Output (Last 8hrs): Intake & Output 09/05/16 09/06/16 09/06/16 22:59 06:59 14:59 Intake Total 383 272 360 Output Total 265 240 50 Balance 118 32 310 Weight 97 lb 0.054 oz Intake: IV 30 0 Intake, IV Amount 33 12 0 Right Forearm 33 12 0 Oral 320 260 360 Output: Urine 265 240 50 Urethral (Hernandez) 265 240 50 Other: # Bowel Movements 0 0 - Physical Exam Head: Positive for: Normocephalic Extroacular Muscles: Positive for: EOMI Conjunctiva: Positive for: Normal Mouth: Positive for: Moist Mucous Membranes Respiratory/Chest: Positive for: Good Air Exchange, Rales. Negative for: Clear to Auscultation, Respiratory Distress, Accessory Muscle Use, Wheezes Cardiovascular: Positive for: Regular Rate and Rhythm, Normal S1, S2 Abdomen: Positive for: Normal Bowel Sounds. Negative for: Tenderness, Distention Lower Extremity: Positive for: Normal Inspection. Negative for: Tenderness, Swelling Neurological: Positive for: Speech Normal Skin: Positive for: Warm, Dry. Negative for: Rashes Psychiatric: Positive for: Alert, Oriented x 3, Anxious - Medications Active Medications: Active Medications Generic Name Dose Route Start Last Admin Trade Name Freq PRN Reason Stop Dose Admin Acetaminophen 650 mg 09/06/16 02:30 09/06/16 02:35 Tylenol 325mg Tab PO 650 mg Q6 PRN Administration Headache Albuterol Sulfate 2.5 mg 09/06/16 14:00 Albuterol 0.083% Inhal Claudia (2.5 Mg/3 Ml) Ud INH RQ6 BLAKE Aspirin 325 mg 09/06/16 10:00 Aspirin PO DAILY [facility] Enoxaparin Sodium 30 mg 09/06/16 10:00 Lovenox SC DAILY [facility] Famotidine 20 mg 09/06/16 10:00 Pepcid PO DAILY [facility] Furosemide 40 mg 09/06/16 10:00 Lasix PO BID [facility] Lorazepam 1 mg 09/05/16 13:31 09/05/16 13:56 Ativan PO 1 mg Q12H PRN Administration Anxiety Nitroglycerin 1 ea 09/05/16 15:24 Nitro-Bid 2% Oint TOP Q6 PRN Pain, Mild (1-3) Pneumococcal Polyvalent Vaccine 0.5 ml 09/08/16 10:00 Pneumovax 23 Vaccine IM 09/08/16 10:01 .ONCE ONE Potassium Chloride 40 meq 09/06/16 10:00 K-Dur 20 Meq Er Tab PO DAILY [facility] - Patient Studies Lab Studies: Lab Studies 09/06/16 09/06/16 09/06/16 Range/Units 07:26 06:11 06:11 WBC 11.3 H (4.8-10.8) K/uL RBC 4.16 (3.80-5.20) Mil/uL Hgb 9.6 L D (11.0-16.0) g/dL Hct 30.6 L (34.0-47.0) % MCV 73.6 L D (81.0-99.0) fL MCH 23.1 L (27.0-31.0) pg MCHC 31.4 L (33.0-37.0) g/dL RDW 19.2 H (11.5-14.5) % Plt Count 258 D (130-400) K/uL MPV 9.9 (7.2-11.7) fL Neut % (Auto) 69.9 (50.0-75.0) % Lymph % (Auto) 18.6 L (20.0-40.0) % [place] % (Auto) 9.3 (0.0-10.0) % Eos % (Auto) 0.4 (0.0-4.0) % Baso % (Auto) 1.8 (0.0-2.0) % Neut # 7.9 H (1.8-7.0) K/uL Lymph # 2.1 (1.0-4.3) K/uL [place] # 1.1 H (0.0-0.8) K/uL Eos # 0.0 (0.0-0.7) K/uL Baso # 0.2 (0.0-0.2) K/uL Sodium 134 (132-148) mmol/L Potassium 3.6 (3.6-5.2) mmol/L Chloride 100 (98-107) mmol/L Carbon Dioxide 21 L (22-30) mmol/L Anion Gap 17 (10-20) BUN 20 H (7-17) mg/dL Creatinine 0.9 (0.7-1.2) MG/DL Est GFR ( Amer) > 60 Est GFR (Non-Af Amer) 60 POC Glucose (mg/dL) 132 H (65-110) mg/dL Random Glucose 108 H (65-105) mg/dL Calcium 8.7 (8.6-10.4) mg/dl Phosphorus 4.4 (2.5-4.5) mg/dL Magnesium 1.8 (1.6-2.3) mg/dL Total Bilirubin 1.3 (0.2-1.3) mg/dL AST 258 H D (14-36) U/L ALT 39 (9-52) U/L Alkaline Phosphatase 90 (38-126) U/L Total Protein 7.2 (6.3-8.3) g/dL Albumin 3.6 (3.5-5.0) g/dL Globulin 3.6 (2.2-3.9) gm/dL Albumin/Globulin Ratio 1.0 (1.0-2.1) Urine Color (YELLOW) Urine Clarity (Clear) Urine pH (5.0-8.0) Ur Specific [place] (1.003-1.030) Urine Protein (NEGATIVE) mg/dL Urine Glucose (UA) (Normal) mg/dL Urine Ketones (NEGATIVE) mg/dL Urine Blood (NEGATIVE) Urine Nitrate (NEGATIVE) Urine Bilirubin (NEGATIVE) Urine Urobilinogen (0.2-1.0) mg/dL Ur Leukocyte Esterase (Negative) Jose/uL Urine WBC (Auto) (0-5) /hpf Urine RBC (Auto) (0-3) /hpf Ur Squamous Epith Cells (0-5) /hpf Urine Bacteria (<OCC) Hyaline Casts (0-2) /lpf 09/05/16 09/05/16 Range/Units 21:49 10:06 WBC (4.8-10.8) K/uL RBC (3.80-5.20) Mil/uL Hgb (11.0-16.0) g/dL Hct (34.0-47.0) % MCV (81.0-99.0) fL MCH (27.0-31.0) pg MCHC (33.0-37.0) g/dL RDW (11.5-14.5) % Plt Count (130-400) K/uL MPV (7.2-11.7) fL Neut % (Auto) (50.0-75.0) % Lymph % (Auto) (20.0-40.0) % [place] % (Auto) (0.0-10.0) % Eos % (Auto) (0.0-4.0) % Baso % (Auto) (0.0-2.0) % Neut # (1.8-7.0) K/uL Lymph # (1.0-4.3) K/uL [place] # (0.0-0.8) K/uL Eos # (0.0-0.7) K/uL Baso # (0.0-0.2) K/uL Sodium (132-148) mmol/L Potassium (3.6-5.2) mmol/L Chloride (98-107) mmol/L Carbon Dioxide (22-30) mmol/L Anion Gap (10-20) BUN (7-17) mg/dL Creatinine (0.7-1.2) MG/DL Est GFR ( Amer) Est GFR (Non-Af Amer) POC Glucose (mg/dL) 99 (65-110) mg/dL Random Glucose (65-105) mg/dL Calcium (8.6-10.4) mg/dl Phosphorus (2.5-4.5) mg/dL Magnesium (1.6-2.3) mg/dL Total Bilirubin (0.2-1.3) mg/dL AST (14-36) U/L ALT (9-52) U/L Alkaline Phosphatase (38-126) U/L Total Protein (6.3-8.3) g/dL Albumin (3.5-5.0) g/dL Globulin (2.2-3.9) gm/dL Albumin/Globulin Ratio (1.0-2.1) Urine Color Yellow (YELLOW) Urine Clarity Clear (Clear) Urine pH 6.0 (5.0-8.0) Ur Specific [place] 1.021 (1.003-1.030) Urine Protein 2+ H (NEGATIVE) mg/dL Urine Glucose (UA) Normal (Normal) mg/dL Urine Ketones Negative (NEGATIVE) mg/dL Urine Blood Negative (NEGATIVE) Urine Nitrate Negative (NEGATIVE) Urine Bilirubin Negative (NEGATIVE) Urine Urobilinogen 4.0 H (0.2-1.0) mg/dL Ur Leukocyte Esterase Neg (Negative) Jose/uL Urine WBC (Auto) 2 (0-5) /hpf Urine RBC (Auto) 4 H (0-3) /hpf Ur Squamous Epith Cells < 1 (0-5) /hpf Urine Bacteria Rare (<OCC) Hyaline Casts 0-2 (0-2) /lpf Laboratory Results - last 24 hr 09/05/16 09/05/16 09/06/16 10:06 21:49 06:11 WBC 11.3 H RBC 4.16 Hgb 9.6 L D Hct 30.6 L MCV 73.6 L D MCH 23.1 L MCHC 31.4 L RDW 19.2 H Plt Count 258 D MPV 9.9 Neut % (Auto) 69.9 Lymph % (Auto) 18.6 L [place] % (Auto) 9.3 Eos % (Auto) 0.4 Baso % (Auto) 1.8 Neut # 7.9 H Lymph # 2.1 [place] # 1.1 H Eos # 0.0 Baso # 0.2 Sodium Potassium Chloride Carbon Dioxide Anion Gap BUN Creatinine Est GFR ( Amer) Est GFR (Non-Af Amer) POC Glucose (mg/dL) 99 Random Glucose Calcium Phosphorus Magnesium Total Bilirubin AST ALT Alkaline Phosphatase Total Protein Albumin Globulin Albumin/Globulin Ratio Urine Color Yellow Urine Clarity Clear Urine pH 6.0 Ur Specific [place] 1.021 Urine Protein 2+ H Urine Glucose (UA) Normal Urine Ketones Negative Urine Blood Negative Urine Nitrate Negative Urine Bilirubin Negative Urine Urobilinogen 4.0 H Ur Leukocyte Esterase Neg Urine WBC (Auto) 2 Urine RBC (Auto) 4 H Ur Squamous Epith Cells < 1 Urine Bacteria Rare Hyaline Casts 0-2 09/06/16 09/06/16 06:11 07:26 WBC RBC Hgb Hct MCV MCH MCHC RDW Plt Count MPV Neut % (Auto) Lymph % (Auto) [place] % (Auto) Eos % (Auto) Baso % (Auto) Neut # Lymph # [place] # Eos # Baso # Sodium 134 Potassium 3.6 Chloride 100 Carbon Dioxide 21 L Anion Gap 17 BUN 20 H Creatinine 0.9 Est GFR ( Amer) > 60 Est GFR (Non-Af Amer) 60 POC Glucose (mg/dL) 132 H Random Glucose 108 H Calcium 8.7 Phosphorus 4.4 Magnesium 1.8 Total Bilirubin 1.3 AST 258 H D ALT 39 Alkaline Phosphatase 90 Total Protein 7.2 Albumin 3.6 Globulin 3.6 Albumin/Globulin Ratio 1.0 Urine Color Urine Clarity Urine pH Ur Specific [place] Urine Protein Urine Glucose (UA) Urine Ketones Urine Blood Urine Nitrate Urine Bilirubin Urine Urobilinogen Ur Leukocyte Esterase Urine WBC (Auto) Urine RBC (Auto) Ur Squamous Epith Cells Urine Bacteria Hyaline Casts Fingerstick Blood Sugar Results: 99 Critical Care Progress Note - Nutrition Nutrition: Nutrition Category Date Time Status Heart Healthy Diet [DIET] Diets 09/05/16 Dinner Active Assessment/Plan - Assessment and Plan (Free Text) Assessment: 81F admitted for SOB; now DNR/DNI Plan: 40meq K given PO started on 50 lasix BID Ok to transfer to telemetry d/w Dr Villa and Dr Kiran Kauffman, PGY3 - Date & Time Date: 09/06/16 Time: 10:39 <Rustam Villa S - Last Filed: 09/07/16 17:24> CCU Objective - Vital Signs / Intake & Output Intake and Output (Last 8hrs): Intake & Output 09/07/16 09/07/16 09/07/16 06:59 14:59 22:59 Intake Total 180 600 Output Total 520 430 Balance -340 170 Weight 100 lb Intake: Oral 180 600 Output: Urine 520 430 Urethral (Hernandez) 520 430 - Medications Active Medications: Active Medications Generic Name Dose Route Start Last Admin Trade Name Freq PRN Reason Stop Dose Admin Acetaminophen 650 mg 09/06/16 02:30 09/07/16 05:46 Tylenol 325mg Tab PO 650 mg Q6 PRN Administration Headache Albuterol Sulfate 2.5 mg 09/06/16 14:00 09/07/16 13:10 Albuterol 0.083% Inhal Claudia (2.5 Mg/3 Ml) Ud INH 2.5 mg RQ6 BLAKE Administration Amiodarone HCl 200 mg 09/07/16 10:00 09/07/16 10:50 Cordarone PO 200 mg DAILY BLAKE Administration Aspirin 325 mg 09/06/16 10:00 09/07/16 10:51 Aspirin PO 325 mg DAILY BLAKE Administration Enoxaparin Sodium 30 mg 09/06/16 10:00 09/07/16 10:50 Lovenox SC 30 mg DAILY BLAKE Administration Famotidine 20 mg 09/07/16 18:00 Pepcid PO DAILY BLAKE Furosemide 40 mg 09/06/16 10:00 09/07/16 10:50 Lasix PO 40 mg BID BLAKE Administration Insulin Aspart 0 unit 09/07/16 16:30 Novolog SC ACHS [facility] Protocol Lorazepam 1 mg 09/05/16 13:31 09/07/16 08:11 Ativan PO 1 mg Q12H PRN Administration Anxiety Nitroglycerin 1 ea 09/05/16 15:24 Nitro-Bid 2% Oint TOP Q6 PRN Pain, Mild (1-3) Pneumococcal Polyvalent Vaccine 0.5 ml 09/08/16 10:00 Pneumovax 23 Vaccine IM 09/08/16 10:01 .ONCE ONE Potassium Chloride 40 meq 09/06/16 10:00 09/07/16 10:51 K-Dur 20 Meq Er Tab PO 40 meq DAILY BLAKE Administration - Patient Studies Lab Studies: Microbiology Studies 09/05/16 09:00 Blood Culture - Preliminary Blood NO GROWTH AFTER 48 HOURS 09/05/16 15:00 MRSA Culture (Admit) - Final Naris MRSA NOT DETECTED Lab Studies 09/06/16 Range/Units 21:17 POC Glucose (mg/dL) 120 H (65-110) mg/dL Laboratory Results - last 24 hr 09/06/16 21:17 POC Glucose (mg/dL) 120 H Critical Care Progress Note - Nutrition Nutrition: Nutrition Category Date Time Status Heart Healthy Diet [DIET] Diets 09/05/16 Dinner Active Attending/Attestation - Attestation I have personally seen and examined this patient.: Yes I have fully participated in the care of the patient.: Yes I have reviewed all pertinent clinical information: Yes Notes (Text): Patient seen and examined in the intensive care unit. Case discussed with house staff in the morning around Patient stable for transfer to floor Continue diuretics and present treatment
[2016-09-06] MEDS: Enoxaparin 30 mg Syringe SC SCH (10:56)
[2016-09-06] MEDS: Potassium Chloride 20 mEq ER Tab PO SCH (10:57)
[2016-09-06] MEDS: Albuterol 0.083% Inhal Sol (2.5 mg/3 mL) UD INH SCH ×2 (13:04→19:49)
--- NOTE | 2016-09-06 19:06 | CP.PCM.CON ---
<Kasey James - Last Filed: 09/06/16 19:37> History of Present Illness - History of Present Illness History of Present Illness: Cardiology Consult note for Dr. Gustafson Reason for consult: ICD HPI: 81 year old female with PMHx significant for A.fib, HTN, DM, COPD, CHF, and RA - presented to ER complaining of SOB. Patient was seen resting comfortably on 2L NC but uses BiPAP when she becomes anxious. On last admission , patient had PCI of mid LAD 08/25 and had pacemaker placed on 08/16/16. Cardiology consulted for ICD. Patient denies fever, chest pain, abd pain, nausea , vomiting, bowel/bladder complaints. She does complain of some mild back pain. PMHx: Afib, HTN, DM, COPD, CHF, RA PSurgHx: ICD placed 08/16/16; Cholecystectomy; Coronary stent (proximal RCA) placed in June 2016 ALL: moxifloxacin FamHx: Psychiatric : daughter has bipolar disorder; Medical: unknown Review of Systems - Constitutional Constitutional: As Per HPI. absent: Fever - Cardiovascular Cardiovascular: As Per HPI, Dyspnea, Dyspnea on Exertion. absent: Chest Pain - Respiratory Respiratory: As Per HPI, Dyspnea, Dyspnea on Exertion. absent: Cough - Gastrointestinal Gastrointestinal: As Per HPI. absent: Abdominal Pain, Constipation, Diarrhea, Nausea, Vomiting - Musculoskeletal Musculoskeletal: As Per HPI, Back Pain - Neurological Neurological: As Per HPI. absent: Headaches Past Patient History - Infectious Disease Hx of Infectious Diseases: None - Tetanus Immunizations Tetanus Immunization: Unknown - Past Medical History & Family History Past Medical History?: Yes - Past Social History Smoking Status: Former Smoker - CARDIAC Hx Atrial Fibrillation: Yes Hx Congestive Heart Failure: Yes Hx Hypercholesterolemia: Yes Hx Hypertension: Yes Hx Pacemaker: Yes - PULMONARY Hx Asthma: Yes Hx Chronic Obstructive Pulmonary Disease (COPD): Yes Hx Pneumonia: Yes (08/2015) - NEUROLOGICAL Hx Dementia: Yes - HEENT Hx HEENT Problems: No - RENAL Hx Chronic Kidney Disease: No Hx Kidney Stones: No - ENDOCRINE/METABOLIC Hx Diabetes Mellitus Type 2: Yes Hx Hyperthyroidism: No Hx Hypothyroidism: No - HEMATOLOGICAL/ONCOLOGICAL Hx Anemia: No Hx Human Immunodeficiency Virus (HIV): No Hx Sickle Cell Disease: No - INTEGUMENTARY Hx Dermatological Problems: No - MUSCULOSKELETAL/RHEUMATOLOGICAL Hx Arthritis: Yes Hx Falls: No Hx Osteoporosis: Yes Hx Rheumatoid Arthritis: Yes - GASTROINTESTINAL Hx Gall Bladder Disease: Yes - GENITOURINARY/GYNECOLOGICAL Hx Sexually Transmitted Disorders: No - PSYCHIATRIC Hx Anxiety: Yes Hx Bipolar Disorder: No Hx Depression: No Hx Post Traumatic Stress Disorder: No Hx Schizophrenia: No Hx Substance Use: No - SURGICAL HISTORY Hx Cholecystectomy: Yes Hx Coronary Stent: Yes (proximal RCA stent) - ANESTHESIA Hx Anesthesia: Yes Hx Anesthesia Reactions: No Hx Malignant Hyperthermia: No Meds Allergies/Adverse Reactions: Allergies Allergy/AdvReac Type Severity Reaction Status Date / Time moxifloxacin HCl Allergy Severe ANAPHYLAXIS Verified 09/05/16 07:00 [From Avelox] - Medications Medications: Current Medications Acetaminophen (Tylenol 325mg Tab) 650 mg PO Q6 PRN PRN Reason: Headache Last Admin: 09/06/16 11:01 Dose: 650 mg Albuterol Sulfate (Albuterol 0.083% Inhal Claudia (2.5 Mg/3 Ml) Ud) 2.5 mg INH RQ6 [facility] Last Admin: 09/06/16 13:04 Dose: 2.5 mg Aspirin (Aspirin) 325 mg PO DAILY [facility] Last Admin: 09/06/16 10:56 Dose: 325 mg Enoxaparin Sodium (Lovenox) 30 mg SC DAILY [facility] Last Admin: 09/06/16 10:56 Dose: 30 mg Famotidine (Pepcid) 20 mg PO DAILY [facility] Last Admin: 09/06/16 10:57 Dose: 20 mg Furosemide (Lasix) 40 mg PO BID [facility] Last Admin: 09/06/16 18:24 Dose: Not Given Lorazepam (Ativan) 1 mg PO Q12H PRN PRN Reason: Anxiety Last Admin: 09/06/16 15:48 Dose: 1 mg Nitroglycerin (Nitro-Bid 2% Oint) 1 ea TOP Q6 PRN PRN Reason: Pain, Mild (1-3) Pneumococcal Polyvalent Vaccine (Pneumovax 23 Vaccine) 0.5 ml IM .ONCE ONE Stop: 09/08/16 10:01 Potassium Chloride (K-Dur 20 Meq Er Tab) 40 meq PO DAILY [facility] Last Admin: 09/06/16 10:57 Dose: 40 meq Physical Exam - Constitutional Appears: Chronically Ill - Head Exam Head Exam: ATRAUMATIC, NORMAL INSPECTION - Eye Exam Eye Exam: Normal appearance. absent: Conjunctival injection, Scleral icterus - ENT Exam ENT Exam: Mucous Membranes Dry Additional comments: NC in place - Respiratory Exam Respiratory Exam: Rales, NORMAL BREATHING PATTERN. absent: Accessory Muscle Use , Rhonchi, Wheezes, Respiratory Distress - Cardiovascular Exam Cardiovascular Exam: REGULAR RHYTHM, RRR, +S1, +S2 - GI/Abdominal Exam GI & Abdominal Exam: Normal Bowel Sounds, Soft. absent: Tenderness - Extremities Exam Extremities exam: Positive for: normal inspection. Negative for: pedal edema - Neurological Exam Neurological exam: Alert - Psychiatric Exam Psychiatric exam: Normal Affect, Normal Mood - Skin Skin Exam: Dry, Intact Results - Vital Signs Recent Vital Signs: Last Vital Signs Temp 97.9 F 09/06/16 16:00 Pulse 99 H 09/06/16 18:00 Resp 18 09/06/16 18:00 BP 97/66 L 09/06/16 18:24 Pulse Ox 99 09/06/16 18:00 - Labs Result Diagrams: 09/06/16 06:11 09/06/16 06:11 Labs: Laboratory Results - last 24 hr 09/05/16 09/06/16 09/06/16 21:49 06:11 06:11 WBC 11.3 H RBC 4.16 Hgb 9.6 L D Hct 30.6 L MCV 73.6 L D MCH 23.1 L MCHC 31.4 L RDW 19.2 H Plt Count 258 D MPV 9.9 Neut % (Auto) 69.9 Lymph % (Auto) 18.6 L [place] % (Auto) 9.3 Eos % (Auto) 0.4 Baso % (Auto) 1.8 Neut # 7.9 H Lymph # 2.1 [place] # 1.1 H Eos # 0.0 Baso # 0.2 Sodium 134 Potassium 3.6 Chloride 100 Carbon Dioxide 21 L Anion Gap 17 BUN 20 H Creatinine 0.9 Est GFR ( Amer) > 60 Est GFR (Non-Af Amer) 60 POC Glucose (mg/dL) 99 Random Glucose 108 H Calcium 8.7 Phosphorus 4.4 Magnesium 1.8 Total Bilirubin 1.3 AST 258 H D ALT 39 Alkaline Phosphatase 90 Total Protein 7.2 Albumin 3.6 Globulin 3.6 Albumin/Globulin Ratio 1.0 09/06/16 09/06/16 09/06/16 07:26 11:38 15:33 WBC RBC Hgb Hct MCV MCH MCHC RDW Plt Count MPV Neut % (Auto) Lymph % (Auto) [place] % (Auto) Eos % (Auto) Baso % (Auto) Neut # Lymph # [place] # Eos # Baso # Sodium Potassium Chloride Carbon Dioxide Anion Gap BUN Creatinine Est GFR ( Amer) Est GFR (Non-Af Amer) POC Glucose (mg/dL) 132 H 124 H 168 H Random Glucose Calcium Phosphorus Magnesium Total Bilirubin AST ALT Alkaline Phosphatase Total Protein Albumin Globulin Albumin/Globulin Ratio Assessment & Plan - Assessment and Plan (Free Text) Assessment: 81 F with PMHx significant for A.fib, HTN, DM, COPD, CHF, and RA - presented to ER complaining of SOB Plan: -s/p ICD placement by Dr. Gustafson 08/16/16 -s/p PCI mid LAD with Dr. Cunningham 08/25 -Cardiac cath 08/11/16 - left main patent, LAD has eccentric calcification of the mid vessel. 80% stenosis of the mid vessel with a hazy opacity in the mid. Left circumflex has 50% stenosis in proximal vessel. RCA has a widely patent stent and eccentric calcification in the distal vessel. LVEF is 35%. -Echo 08/02/16 - suboptimal study. LVEF approximately 35%, septum appears akinetic and dyskinetic, moderate pulmonary hypertension -Echo- 06/25/16- Systolic function is mildly impaired, EF- 40-45%. Akinesis and thinning of basal and mid inferior wall and septal wall segments (both anterior and inferior)indicative of prior [place]. LA moderately dilated. RA mildly dilated. AV moderately sclerotic. Mod tricuspid regurg (please see full report) -BNP 5610 -Amiodarone 200mg po daily -ASA 325mg po daily -Lasix 40mg po bid -Nitrobid 1 ea top q6 prn pain mild Cardiology will follow Case discussed with Dr. Sj James PGY2 <Iraida Gustafson - Last Filed: 09/15/16 09:33> Results - Vital Signs Recent Vital Signs: Last Vital Signs Temp 97.7 F 09/14/16 08:35 Pulse 86 09/14/16 12:00 Resp 20 09/14/16 08:35 BP 105/69 09/14/16 10:16 Pulse Ox 98 09/14/16 08:35 - Labs Result Diagrams: 09/14/16 07:20 09/14/16 07:20 Labs: Laboratory Results - last 24 hr 09/14/16 11:32 POC Glucose (mg/dL) 128 H Attending/Attestation - Attestation I have personally seen and examined this patient.: Yes I have fully participated in the care of the patient.: Yes I have reviewed all pertinent clinical information: Yes Notes (Text): 09/15/16 09:33 Will have ICD interrogated continue CHF meds
[2016-09-07] MEDS: Albuterol 0.083% Inhal Sol (2.5 mg/3 mL) UD INH SCH ×4 (01:37→19:41)
--- NOTE | 2016-09-07 09:14 | CP.PCM.PN ---
<Kasey James - Last Filed: 09/07/16 10:04> Subjective - Date & Time of Evaluation Date of Evaluation: 09/07/16 Time of Evaluation: 07:45 - Subjective Subjective: Cardiology progress note for Dr. Gustafson Patient seen and examined at bedside. Patient was resting comfortably on 2L NC and had no acute events overnight. She was oriented to self but said she was at home and did not know what year it was; patient stated it was too early for him to answer questions. She did complain of some dull chest pain but denied any SOB , abd pain, nausea, vomiting, bowel/bladder complaints, pain/swelling in her legs bilaterally. HR was in 100s overnight. Objective - Vital Signs/Intake and Output Vital Signs (last 24 hours): Temp Pulse Resp BP Pulse Ox 97.4 F L 102 H 32 H 117/76 100 09/07/16 04:00 09/07/16 07:00 09/07/16 07:00 09/07/16 04:00 09/07/16 00:00 Intake and Output: 09/07/16 09/07/16 06:59 18:59 Intake Total 280 300 Output Total 890 100 Balance -610 200 - Medications Medications: Current Medications Acetaminophen (Tylenol 325mg Tab) 650 mg PO Q6 PRN PRN Reason: Headache Last Admin: 09/07/16 05:46 Dose: 650 mg Albuterol Sulfate (Albuterol 0.083% Inhal Claudia (2.5 Mg/3 Ml) Ud) 2.5 mg INH RQ6 [facility] Last Admin: 09/07/16 07:44 Dose: 2.5 mg Amiodarone HCl (Cordarone) 200 mg PO DAILY [facility] Aspirin (Aspirin) 325 mg PO DAILY [facility] Last Admin: 09/06/16 10:56 Dose: 325 mg Enoxaparin Sodium (Lovenox) 30 mg SC DAILY [facility] Last Admin: 09/06/16 10:56 Dose: 30 mg Famotidine (Pepcid) 20 mg PO DAILY [facility] Last Admin: 09/06/16 10:57 Dose: 20 mg Furosemide (Lasix) 40 mg PO BID [facility] Last Admin: 09/06/16 18:24 Dose: Not Given Lorazepam (Ativan) 1 mg PO Q12H PRN PRN Reason: Anxiety Last Admin: 09/07/16 08:11 Dose: 1 mg Nitroglycerin (Nitro-Bid 2% Oint) 1 ea TOP Q6 PRN PRN Reason: Pain, Mild (1-3) Pneumococcal Polyvalent Vaccine (Pneumovax 23 Vaccine) 0.5 ml IM .ONCE ONE Stop: 09/08/16 10:01 Potassium Chloride (K-Dur 20 Meq Er Tab) 40 meq PO DAILY [facility] Last Admin: 09/06/16 10:57 Dose: 40 meq - Labs Labs: 09/06/16 06:11 09/06/16 06:11 PT 12.7 SECONDS (9.7-12.2) H 09/05/16 07:13 INR 1.1 09/05/16 07:13 APTT 23 SECONDS (21-34) 09/05/16 07:13 - Constitutional Appears: Chronically Ill - Head Exam Head Exam: ATRAUMATIC, NORMAL INSPECTION - Eye Exam Eye Exam: Normal appearance. absent: Conjunctival injection, Scleral icterus - ENT Exam ENT Exam: Mucous Membranes Dry Additional comments: NC 2L in place - Respiratory Exam Respiratory Exam: Rales, NORMAL BREATHING PATTERN. absent: Accessory Muscle Use , Rhonchi, Wheezes, Respiratory Distress - Cardiovascular Exam Cardiovascular Exam: Tachycardia, REGULAR RHYTHM, +S1, +S2 - GI/Abdominal Exam GI & Abdominal Exam: Soft, Normal Bowel Sounds. absent: Tenderness - Extremities Exam Extremities Exam: Normal Inspection. absent: Pedal Edema - Neurological Exam Neurological Exam: Alert, Awake - Psychiatric Exam Psychiatric exam: Normal Affect, Normal Mood - Skin Skin Exam: Dry, Intact Assessment and Plan - Assessment and Plan (Free Text) Assessment: 81 F with PMHx significant for A.fib, HTN, DM, COPD, CHF, and RA - presented to ER complaining of SOB Plan: -s/p ICD placement by Dr. Gustafson 08/16 -s/p PCI mid LAD with Dr. Cunningham 08/25 -Cardiac cath 08/11/16: Left main patent, LAD has eccentric calcification of the mid vessel. 80% stenosis of the mid vessel with a hazy opacity in the mid. Left circumflex has 50% stenosis in proximal vessel. RCA has a widely patent stent and eccentric calcification in the distal vessel. LVEF is 35%. -Echo 08/02/16 - suboptimal study. LVEF approximately 35%, septum appears akinetic and dyskinetic, moderate pulmonary hypertension -Echo 06/25/16- Systolic function is mildly impaired, EF- 40-45%. Akinesis and thinning of basal and mid inferior wall and septal wall segments (both anterior and inferior)indicative of prior [place]. LA moderately dilated. RA mildly dilated. AV moderately sclerotic. Mod tricuspid regurg (please see full report) -BNP 5610 -Continue current management: -Amiodarone 200mg po daily -ASA 325mg po daily -Lasix 40mg po bid -Nitrobid 1 ea top q6 prn pain mild Case discussed with Dr. Sj James PGY2 <Iraida Gustafson - Last Filed: 09/15/16 09:35> Objective - Vital Signs/Intake and Output Vital Signs (last 24 hours): Temp Pulse Resp BP Pulse Ox 97.7 F 86 20 105/69 98 09/14/16 08:35 09/14/16 12:00 09/14/16 08:35 09/14/16 10:16 09/14/16 08:35 - Labs Labs: 09/14/16 07:20 09/14/16 07:20 PT 12.7 SECONDS (9.7-12.2) H 09/05/16 07:13 INR 1.1 09/05/16 07:13 APTT 23 SECONDS (21-34) 09/05/16 07:13 Attending/Attestation - Attestation I have personally seen and examined this patient.: Yes I have fully participated in the care of the patient.: Yes I have reviewed all pertinent clinical information, including history, physical exam and plan: Yes Notes (Text): 09/15/16 09:34 continue rate control and amiodorone for arrhythmia
[2016-09-07] MEDS: Enoxaparin 30 mg Syringe SC SCH (10:50)
[2016-09-07] MEDS: Potassium Chloride 20 mEq ER Tab PO SCH (10:51)
--- NOTE | 2016-09-07 14:27 | CARD ---
APPROVED REPORT EKG Measurement Heart [id number] <Conclusion> Accelerated Junctional rhythm with premature supraventricular complexes and with occasional premature ventricular complexes Left axis deviation Inferior infarct, age undetermined Anterior infarct, age undetermined ST & T wave abnormality, consider lateral ischemia Abnormal ECG
--- NOTE | 2016-09-07 15:16 | CP.PCM.PN ---
Subjective - Date & Time of Evaluation Date of Evaluation: 09/07/16 Time of Evaluation: 10:00 - Subjective Subjective: PGY 2 Medicine Note- Dr. Beck's service Pt seen and examined in no acute distress. Pt downgraded to telemetry monitoring yesterday. Pt complains of abdominal pain. She also requests an appetite stimulant. Patient denies subjective fevers or chills, N/V/D, chest pain or palpitations at this time. Objective - Vital Signs/Intake and Output Vital Signs (last 24 hours): Temp Pulse Resp BP Pulse Ox 98.2 F 100 H 22 99/66 L 100 09/07/16 08:00 09/07/16 08:00 09/07/16 08:00 09/07/16 10:50 09/07/16 00:00 Intake and Output: 09/07/16 09/07/16 06:59 18:59 Intake Total 280 300 Output Total 890 290 Balance -610 10 - Medications Medications: Current Medications Acetaminophen (Tylenol 325mg Tab) 650 mg PO Q6 PRN PRN Reason: Headache Last Admin: 09/07/16 05:46 Dose: 650 mg Albuterol Sulfate (Albuterol 0.083% Inhal Claudia (2.5 Mg/3 Ml) Ud) 2.5 mg INH RQ6 [facility] Last Admin: 09/07/16 13:10 Dose: 2.5 mg Amiodarone HCl (Cordarone) 200 mg PO DAILY [facility] Last Admin: 09/07/16 10:50 Dose: 200 mg Aspirin (Aspirin) 325 mg PO DAILY [facility] Last Admin: 09/07/16 10:51 Dose: 325 mg Enoxaparin Sodium (Lovenox) 30 mg SC DAILY [facility] Last Admin: 09/07/16 10:50 Dose: 30 mg Famotidine (Pepcid) 20 mg PO DAILY [facility] Last Admin: 09/07/16 10:51 Dose: 20 mg Furosemide (Lasix) 40 mg PO BID [facility] Last Admin: 09/07/16 10:50 Dose: 40 mg Lorazepam (Ativan) 1 mg PO Q12H PRN PRN Reason: Anxiety Last Admin: 09/07/16 08:11 Dose: 1 mg Nitroglycerin (Nitro-Bid 2% Oint) 1 ea TOP Q6 PRN PRN Reason: Pain, Mild (1-3) Pneumococcal Polyvalent Vaccine (Pneumovax 23 Vaccine) 0.5 ml IM .ONCE ONE Stop: 09/08/16 10:01 Potassium Chloride (K-Dur 20 Meq Er Tab) 40 meq PO DAILY [facility] Last Admin: 09/07/16 10:51 Dose: 40 meq - Labs Labs: 09/06/16 06:11 09/06/16 06:11 PT 12.7 SECONDS (9.7-12.2) H 09/05/16 07:13 INR 1.1 09/05/16 07:13 APTT 23 SECONDS (21-34) 09/05/16 07:13 - Constitutional Appears: Non-toxic, No Acute Distress - Head Exam Head Exam: ATRAUMATIC, NORMAL INSPECTION, NORMOCEPHALIC - Eye Exam Eye Exam: EOMI, Normal appearance Pupil Exam: NORMAL ACCOMODATION - ENT Exam ENT Exam: Mucous Membranes Moist - Neck Exam Neck Exam: Full ROM - Respiratory Exam Respiratory Exam: NORMAL BREATHING PATTERN. absent: Wheezes - Cardiovascular Exam Cardiovascular Exam: +S1, +S2 - GI/Abdominal Exam GI & Abdominal Exam: Distended, Guarding, Soft, Tenderness - Extremities Exam Extremities Exam: Full ROM, Normal Capillary Refill - Back Exam Back Exam: Full ROM - Neurological Exam Neurological Exam: Alert, Awake, CN II-XII Intact, Oriented x3 - Psychiatric Exam Psychiatric exam: Normal Affect, Normal Mood - Skin Skin Exam: Dry Additional comments: decreased skin turgor Assessment and Plan - Assessment and Plan (Free Text) Assessment: S/P AICD Placement Per Cardiology: -Cardiac cath 08/11/16 - left main patent, LAD has eccentric calcification of the mid vessel. 80% stenosis of the mid vessel with a hazy opacity in the mid. Left circumflex has 50% stenosis in proximal vessel. RCA has a widely patent stent and eccentric calcification in the distal vessel. LVEF is 35%. -Echo 08/02/16 - suboptimal study. LVEF approximately 35%, septum appears akinetic and dyskinetic, moderate pulmonary hypertension -Echo- 06/25/16- Systolic function is mildly impaired, EF- 40-45%. Akinesis and thinning of basal and mid inferior wall and septal wall segments (both anterior and inferior)indicative of prior [place]. LA moderately dilated. RA mildly dilated. AV moderately sclerotic. Mod tricuspid regurg (please see full report) -Amiodarone 200mg po daily -ASA 325mg po daily -Lasix 40mg po bid -Nitrobid 1 ea top q6 prn pain mild -F/U with Dr. Gustafson (Cardiology) recommendations Abdominal Pain -Abd U/S- F/U -One time morphine dose COPD -Duonebs -Cont to monitor HTN -Low normotensive -Hold any home antihypertensive agents at this time. DM Accuchecks Low dose ISS Anxiety Ativan 1 mg PO Q12H PRN Prophylactic measure -Lovenox 30 mg SC daily -Pepcid 20 mg PO BID
[2016-09-07] MEDS: (Novolog) Insulin Aspart, Recombinant 100 u/ml 10 ml vial SC SCH ×2 (17:28→21:30)
--- NOTE | 2016-09-07 22:18 | US ---
EXAM: US Abdomen Complete CLINICAL HISTORY: 81 years old, female; Pain; Abdominal pain; Generalized; Prior surgery; Surgery date: 6+ months; Surgery type: Gb removed; Additional info: Abd pain TECHNIQUE: Real-time ultrasound of the abdomen (complete) with image documentation. COMPARISON: No relevant prior studies available. FINDINGS: Liver: The liver is unremarkable in echogenicity and size measuring 13.7 cm in longitudinal dimension. No intrahepatic bile duct dilation. Gallbladder: Surgically absent. Common bile duct: No stones. Appropriate post cholecystectomy dilatation of 11 mm. Pancreas: Visualization of the pancreas is limited by overlying bowel gas. Right kidney: Unremarkable echogenicity and size measuring 8.9 x 3.3 x 3.2 cm. No hydronephrosis. Left Kidney: Unremarkable in echogenicity and size measuring 9.5 x 3.9 x 3.8 cm. No hydronephrosis. Spleen: Unremarkable in echogenicity and size measuring 5.6 cm in longitudinal dimension. Aorta: Non-aneurysmal. Inferior vena cava: patent. IMPRESSION: Limited evaluation of the pancreas, secondary to overlying bowel gas. The gallbladder is surgically absent. Appropriate post cholecystectomy common bile duct dilatation. Otherwise, unremarkable sonographic evaluation of the abdomen, as detailed above.
[2016-09-08] MEDS: Albuterol 0.083% Inhal Sol (2.5 mg/3 mL) UD INH SCH ×4 (01:37→19:36)
[2016-09-08 06:44] LABS: BASO # 0.2 K/uL (0.0-0.2); BASO % 1.8 % (0.0-2.0); EOS # 0.1 K/uL (0.0-0.7); EOS % 0.8 % (0.0-4.0); HEMOGLOBIN 10.3 g/dL (11.0-16.0); LYMPH # 2.4 K/uL (1.0-4.3); LYMPH % 20.4 % (20.0-40.0); MEAN CELL VOLUME 73.7 fL (81.0-99.0); MEAN CORPUSCULAR HGB CONC 31.2 g/dL (33.0-37.0); MEAN PLATELET VOLUME 10.5 fL (7.2-11.7); MONO # 1.3 K/uL (0.0-0.8); MONO % 10.6 % (0.0-10.0); NEUT # 7.9 K/uL (1.8-7.0); NEUT % 66.4 % (50.0-75.0); NRBC % 0.1 % (0.0-2.0); RBC 4.46 Mil/uL (3.80-5.20); RED CELL DISTRIBUTION WIDTH 18.7 % (11.5-14.5); WHITE BLOOD COUNT 11.8 K/uL (4.8-10.8)
[2016-09-08 06:47] LABS: ALBUMIN 3.7 g/dL (3.5-5.0)
[2016-09-08 06:50] LABS: AST/SGOT 69 U/L (14-36); GFR AFRICAN-AMERICAN > 60; GFR NON-AFRICAN AMERICAN > 60
[2016-09-08 06:51] LABS: ALT/SGPT 29 U/L (9-52); BLOOD UREA NITROGEN 20 mg/dL (7-17); CALCIUM 8.4 mg/dl (8.6-10.4); MAGNESIUM 1.6 mg/dL (1.6-2.3)
[2016-09-08] MEDS: (Novolog) Insulin Aspart, Recombinant 100 u/ml 10 ml vial SC SCH ×4 (08:33→21:30)
[2016-09-08] MEDS: Potassium Chloride 20 mEq ER Tab PO SCH (09:56)
[2016-09-08] MEDS: Enoxaparin 30 mg Syringe SC SCH (09:58)
[2016-09-08] MEDS ORDERED: Pneumococcal 23-Valent Vaccine IM ONE (10:00)
--- NOTE | 2016-09-08 11:29 | RAD ---
PROCEDURE: Radiographs of the chest and abdomen (obstructive series) HISTORY: constipation COMPARISON: Comparison made with chest radiograph 09/05/2016 the TECHNIQUE: AP radiograph of the chest, with upright and supine radiographs of the abdomen. FINDINGS: CHEST: Cardiomegaly. In situ single lead pacemaker/defibrillator unchanged. In the left. The central pulmonary vasculature remains slightly increased though improved from prior exam. Findings could represent residual mild chronic pulmonary edema/CHF. Moderate to fairly significant levoscoliosis centered in the lower thoracic spine unchanged. . ABDOMEN AND PELVIS: No gross free air seen under the diaphragmatic surfaces. No evidence of acute mechanical bowel obstruction. Moderate amount of stool is felt be present within the rectosigmoid. Note made of left lateral subluxation L1 over L2 segment IMPRESSION: Cardiomegaly. In situ single lead pacemaker/defibrillator unchanged. In the left. The central pulmonary vasculature remains slightly increased though improved from prior exam. Findings could represent residual mild chronic pulmonary edema/CHF. No evidence of mechanical bowel obstruction.Moderate amount of stool is felt be present within the rectosigmoid.
--- NOTE | 2016-09-08 13:11 | CP.PCM.PN ---
<Les Jensen - Last Filed: 09/08/16 13:12> Subjective - Date & Time of Evaluation Date of Evaluation: 09/08/16 Time of Evaluation: 13:10 - Subjective Subjective: Progress note, Cardiology, Dr. Gustafson Pt seen and examined at bedside. No acute distress. No events overnight. Pt complaining of abdominal pain, will give iv morphine. No fevers, chills, cough, chest pain, sob. Objective - Vital Signs/Intake and Output Vital Signs (last 24 hours): Temp Pulse Resp BP Pulse Ox 97.6 F 89 21 118/71 100 09/08/16 04:00 09/08/16 06:00 09/08/16 04:00 09/08/16 09:56 09/08/16 04:00 Intake and Output: 09/08/16 09/08/16 06:59 18:59 Intake Total 0 Output Total 370 Balance -370 - Medications Medications: Current Medications Acetaminophen (Tylenol 325mg Tab) 650 mg PO Q6 PRN PRN Reason: Headache Last Admin: 09/07/16 05:46 Dose: 650 mg Albuterol Sulfate (Albuterol 0.083% Inhal Claudia (2.5 Mg/3 Ml) Ud) 2.5 mg INH RQ6 [facility] Last Admin: 09/08/16 08:00 Dose: 2.5 mg Amiodarone HCl (Cordarone) 200 mg PO DAILY [facility] Last Admin: 09/08/16 09:56 Dose: 200 mg Aspirin (Aspirin) 325 mg PO DAILY [facility] Last Admin: 09/08/16 09:56 Dose: 325 mg Docusate Sodium (Colace) 100 mg PO BID [facility] Last Admin: 09/08/16 09:56 Dose: 100 mg Enoxaparin Sodium (Lovenox) 30 mg SC DAILY [facility] Last Admin: 09/08/16 09:58 Dose: 30 mg Famotidine (Pepcid) 20 mg PO DAILY [facility] Last Admin: 09/08/16 09:59 Dose: 20 mg Furosemide (Lasix) 40 mg PO BID [facility] Last Admin: 09/08/16 09:56 Dose: 40 mg Insulin Aspart (Novolog) 0 unit SC ACHS [facility] PRN Reason: Protocol Last Admin: 09/08/16 08:33 Dose: Not Given Lorazepam (Ativan) 1 mg PO Q12H PRN PRN Reason: Anxiety Last Admin: 09/08/16 08:34 Dose: 1 mg Morphine Sulfate (Morphine) 2 mg IVP Q4 PRN PRN Reason: Pain, moderate (4-7) Last Admin: 09/08/16 09:00 Dose: 2 mg Nitroglycerin (Nitro-Bid 2% Oint) 1 ea TOP Q6 PRN PRN Reason: Pain, Mild (1-3) Potassium Chloride (K-Dur 20 Meq Er Tab) 40 meq PO DAILY [facility] Last Admin: 09/08/16 09:56 Dose: 40 meq - Labs Labs: 09/08/16 06:30 09/08/16 06:30 PT 12.7 SECONDS (9.7-12.2) H 09/05/16 07:13 INR 1.1 09/05/16 07:13 APTT 23 SECONDS (21-34) 09/05/16 07:13 - Constitutional Appears: Non-toxic, No Acute Distress - Head Exam Head Exam: ATRAUMATIC, NORMAL INSPECTION, NORMOCEPHALIC - Eye Exam Eye Exam: EOMI - ENT Exam ENT Exam: Mucous Membranes Moist - Neck Exam Neck Exam: Full ROM, Normal Inspection - Respiratory Exam Respiratory Exam: NORMAL BREATHING PATTERN. absent: Respiratory Distress - Cardiovascular Exam Cardiovascular Exam: +S1, +S2 - GI/Abdominal Exam GI & Abdominal Exam: Tenderness, Normal Bowel Sounds - Extremities Exam Extremities Exam: Full ROM, Normal Inspection - Back Exam Back Exam: NORMAL INSPECTION - Neurological Exam Neurological Exam: Alert, Awake, CN II-XII Intact - Psychiatric Exam Psychiatric exam: Anxious, Normal Affect, Normal Mood - Skin Skin Exam: Dry, Intact, Normal Color, Warm Assessment and Plan - Assessment and Plan (Free Text) Assessment: This is an 81 yo female with past medical hx of A.fib, HTN, DM, COPD, CHF, and RA -s/p ICD placement by Dr. Gustafson 08/16 -s/p PCI mid LAD with Dr. Cunningham 08/25 -Cardiac cath 08/11/16: Left main patent, LAD has eccentric calcification of the mid vessel. 80% stenosis of the mid vessel with a hazy opacity in the mid. Left circumflex has 50% stenosis in proximal vessel. RCA has a widely patent stent and eccentric calcification in the distal vessel. LVEF is 35%. -Echo 08/02/16 - suboptimal study. LVEF approximately 35%, septum appears akinetic and dyskinetic, moderate pulmonary hypertension -Echo 06/25/16- Systolic function is mildly impaired, EF- 40-45%. Akinesis and thinning of basal and mid inferior wall and septal wall segments (both anterior and inferior)indicative of prior [place]. LA moderately dilated. RA mildly dilated. AV moderately sclerotic. Mod tricuspid regurg (please see full report) -BNP on admission 5610 -Continue current management: -Amiodarone 200mg po daily -ASA 325mg po daily -Lasix 40mg po bid -Nitrobid 1 ea top q6 prn pain mild Case discussed with Dr. Gustafson <Iraida Gustafson - Last Filed: 09/15/16 09:36> Objective - Vital Signs/Intake and Output Vital Signs (last 24 hours): Temp Pulse Resp BP Pulse Ox 97.7 F 86 20 105/69 98 09/14/16 08:35 09/14/16 12:00 09/14/16 08:35 09/14/16 10:16 09/14/16 08:35 - Labs Labs: 09/14/16 07:20 09/14/16 07:20 PT 12.7 SECONDS (9.7-12.2) H 09/05/16 07:13 INR 1.1 09/05/16 07:13 APTT 23 SECONDS (21-34) 09/05/16 07:13 Attending/Attestation - Attestation I have personally seen and examined this patient.: Yes I have fully participated in the care of the patient.: Yes I have reviewed all pertinent clinical information, including history, physical exam and plan: Yes Notes (Text): 09/15/16 09:35 Continua ASA amiodorone and chf management pt in NSR
--- NOTE | 2016-09-08 15:15 | CP.PCM.PN ---
Subjective - Date & Time of Evaluation Date of Evaluation: 09/08/16 Time of Evaluation: 08:30 - Subjective Subjective: PGY3 Medicine Note - Dr. Beck's service: Patient seen and examined at bedside this AM. Patient reports severe abdominal pain. She has not had a bowel movement in 5 days. Patient denies fever, chills , chest pain, SOB. Objective - Vital Signs/Intake and Output Vital Signs (last 24 hours): Temp Pulse Resp BP Pulse Ox 97.6 F 89 21 118/71 100 09/08/16 04:00 09/08/16 06:00 09/08/16 04:00 09/08/16 09:56 09/08/16 04:00 Intake and Output: 09/08/16 09/08/16 06:59 18:59 Intake Total 0 Output Total 370 Balance -370 - Medications Medications: Current Medications Acetaminophen (Tylenol 325mg Tab) 650 mg PO Q6 PRN PRN Reason: Headache Last Admin: 09/07/16 05:46 Dose: 650 mg Albuterol Sulfate (Albuterol 0.083% Inhal Claudia (2.5 Mg/3 Ml) Ud) 2.5 mg INH RQ6 [facility] Last Admin: 09/08/16 13:55 Dose: 2.5 mg Amiodarone HCl (Cordarone) 200 mg PO DAILY [facility] Last Admin: 09/08/16 09:56 Dose: 200 mg Aspirin (Aspirin) 325 mg PO DAILY [facility] Last Admin: 09/08/16 09:56 Dose: 325 mg Docusate Sodium (Colace) 100 mg PO BID [facility] Last Admin: 09/08/16 09:56 Dose: 100 mg Enoxaparin Sodium (Lovenox) 30 mg SC DAILY [facility] Last Admin: 09/08/16 09:58 Dose: 30 mg Famotidine (Pepcid) 20 mg PO DAILY [facility] Last Admin: 09/08/16 09:59 Dose: 20 mg Furosemide (Lasix) 40 mg PO BID [facility] Last Admin: 09/08/16 09:56 Dose: 40 mg Insulin Aspart (Novolog) 0 unit SC ACHS [facility] PRN Reason: Protocol Last Admin: 09/08/16 08:33 Dose: Not Given Lactulose (Enulose) 20 gm PO ONCE ONE Stop: 09/08/16 15:04 Lorazepam (Ativan) 1 mg PO Q12H PRN PRN Reason: Anxiety Last Admin: 09/08/16 08:34 Dose: 1 mg Morphine Sulfate (Morphine) 2 mg IVP Q4 PRN PRN Reason: Pain, moderate (4-7) Last Admin: 09/08/16 14:15 Dose: 2 mg Nitroglycerin (Nitro-Bid 2% Oint) 1 ea TOP Q6 PRN PRN Reason: Pain, Mild (1-3) Potassium Chloride (K-Dur 20 Meq Er Tab) 40 meq PO DAILY [facility] Last Admin: 09/08/16 09:56 Dose: 40 meq - Labs Labs: 09/08/16 06:30 09/08/16 06:30 PT 12.7 SECONDS (9.7-12.2) H 09/05/16 07:13 INR 1.1 09/05/16 07:13 APTT 23 SECONDS (21-34) 09/05/16 07:13 - Constitutional Appears: Non-toxic, No Acute Distress - Head Exam Head Exam: NORMAL INSPECTION - Eye Exam Eye Exam: EOMI - ENT Exam ENT Exam: Mucous Membranes Moist - Respiratory Exam Respiratory Exam: Rales, NORMAL BREATHING PATTERN. absent: Rhonchi, Wheezes - Cardiovascular Exam Cardiovascular Exam: REGULAR RHYTHM, +S1, +S2. absent: Gallop, Rubs, Murmur - GI/Abdominal Exam GI & Abdominal Exam: Distended, Guarding, Tenderness, Normal Bowel Sounds - Extremities Exam Extremities Exam: absent: Pedal Edema - Neurological Exam Neurological Exam: Alert, Awake, Oriented x3 - Psychiatric Exam Psychiatric exam: Normal Affect, Normal Mood - Skin Skin Exam: Normal Color, Warm Assessment and Plan - Assessment and Plan (Free Text) Assessment: S/P AICD Placement Per Cardiology: -s/p ICD placement by Dr. Gustafson 08/16 -s/p PCI mid LAD with Dr. Cunningham 08/25 -Cardiac cath 08/11/16: Left main patent, LAD has eccentric calcification of the mid vessel. 80% stenosis of the mid vessel with a hazy opacity in the mid. Left circumflex has 50% stenosis in proximal vessel. RCA has a widely patent stent and eccentric calcification in the distal vessel. LVEF is 35%. -Echo 08/02/16 - suboptimal study. LVEF approximately 35%, septum appears akinetic and dyskinetic, moderate pulmonary hypertension -Echo 06/25/16- Systolic function is mildly impaired, EF- 40-45%. Akinesis and thinning of basal and mid inferior wall and septal wall segments (both anterior and inferior)indicative of prior [place]. LA moderately dilated. RA mildly dilated. AV moderately sclerotic. Mod tricuspid regurg (please see full report) -BNP 5610 -Continue current management: -Amiodarone 200mg po daily -ASA 325mg po daily -Lasix 40mg po bid -Nitrobid 1 ea top q6 prn pain mild -F/U with Dr. Gustafson (Cardiology) recommendations Abdominal Pain -Abd U/S-limited eval of pancreas secondary to overlying bowel gas; galbladder surgically absent; appropriate post cholecystectomy CBD dilatation; unremarkable otherwise -Obstructive series - no blockage seen; large amount of stool in rectosigmoid colon -Lactulose PO once -Water and soap enema once -Morphine PRN COPD -Duonebs -Cont to monitor HTN -Low normotensive -Hold any home antihypertensive agents at this time. DM Accuchecks Low dose ISS Anxiety Ativan 1 mg PO Q12H PRN Prophylactic measure -Lovenox 30 mg SC daily -Pepcid 20 mg PO BID
[2016-09-09] MEDS: Albuterol 0.083% Inhal Sol (2.5 mg/3 mL) UD INH SCH ×4 (01:54→19:00)
[2016-09-09 06:57] LABS: BASO % 0.3 % (0.0-2.0); EOS # 0.2 K/uL (0.0-0.7); EOS % 1.7 % (0.0-4.0); HEMOGLOBIN 9.7 g/dL (11.0-16.0); LYMPH # 2.2 K/uL (1.0-4.3); LYMPH % 22.1 % (20.0-40.0); MEAN CELL VOLUME 73.3 fL (81.0-99.0); MEAN CORPUSCULAR HEMOGLOBIN 23.4 pg (27.0-31.0); MEAN CORPUSCULAR HGB CONC 31.9 g/dL (33.0-37.0); MEAN PLATELET VOLUME 10.5 fL (7.2-11.7); NEUT # 6.4 K/uL (1.8-7.0); NEUT % 65.9 % (50.0-75.0); NRBC % 0.6 % (0.0-2.0); RBC 4.17 Mil/uL (3.80-5.20); RED CELL DISTRIBUTION WIDTH 17.9 % (11.5-14.5); WHITE BLOOD COUNT 9.8 K/uL (4.8-10.8)
[2016-09-09 07:01] LABS: ALBUMIN 3.7 g/dL (3.5-5.0)
[2016-09-09 07:04] LABS: ALB/GLOB RATIO 1.1 (1.0-2.1); ALT/SGPT 28 U/L (9-52); AST/SGOT 46 U/L (14-36); BLOOD UREA NITROGEN 15 mg/dL (7-17); GFR AFRICAN-AMERICAN > 60; GFR NON-AFRICAN AMERICAN > 60
[2016-09-09 07:05] LABS: CALCIUM 8.8 mg/dl (8.6-10.4); MAGNESIUM 1.7 mg/dL (1.6-2.3)
[2016-09-09] MEDS: Potassium Chloride 20 mEq ER Tab PO SCH (10:30)
[2016-09-09] MEDS: Enoxaparin 30 mg Syringe SC SCH (10:30)
[2016-09-09] MEDS: (Novolog) Insulin Aspart, Recombinant 100 u/ml 10 ml vial SC SCH ×3 (10:30→21:50)
--- NOTE | 2016-09-09 12:00 | CP.PCM.PN ---
<Ronnie Saenz S - Last Filed: 09/09/16 16:08> Subjective - Date & Time of Evaluation Date of Evaluation: 09/09/16 Time of Evaluation: 11:55 - Subjective Subjective: PGY2 Progress note- Cardio- Dr. Gustafson Patient seen and examined at bedside. No acute events overnight as per nursing staff. She continues to have compromised orientation and is only oriented to self. She continues to complain of dull, substernal chest pain but denied any SOB/abd pain/n/v/bowel/bladder complaints/lower extremity pain/swelling. Additionally she continues to have tachycardia with HR around 115 while being examined. Her daughter is at bedside and relays that the patient has been complaining to family about chest pain and occasional SOB throughout the day yesterday and overnight. Objective - Vital Signs/Intake and Output Vital Signs (last 24 hours): Temp Pulse Resp BP Pulse Ox 97.2 F L 97 H 26 H 124/74 100 09/09/16 03:00 09/09/16 03:00 09/09/16 03:00 09/09/16 10:30 09/09/16 03:00 - Medications Medications: Current Medications Acetaminophen (Tylenol 325mg Tab) 650 mg PO Q6 PRN PRN Reason: Headache Last Admin: 09/07/16 05:46 Dose: 650 mg Albuterol Sulfate (Albuterol 0.083% Inhal Claudia (2.5 Mg/3 Ml) Ud) 2.5 mg INH RQ6 [facility] Last Admin: 09/09/16 07:44 Dose: 2.5 mg Amiodarone HCl (Cordarone) 200 mg PO DAILY [facility] Last Admin: 09/09/16 10:30 Dose: 200 mg Aspirin (Aspirin) 325 mg PO DAILY [facility] Last Admin: 09/09/16 10:30 Dose: 325 mg Docusate Sodium (Colace) 100 mg PO BID [facility] Last Admin: 09/09/16 10:30 Dose: 100 mg Enoxaparin Sodium (Lovenox) 30 mg SC DAILY [facility] Last Admin: 09/09/16 10:30 Dose: 30 mg Famotidine (Pepcid) 20 mg PO DAILY [facility] Last Admin: 09/09/16 10:30 Dose: 20 mg Furosemide (Lasix) 40 mg PO BID [facility] Last Admin: 09/09/16 10:30 Dose: 40 mg Insulin Aspart (Novolog) 0 unit SC ACHS [facility] PRN Reason: Protocol Last Admin: 09/09/16 10:30 Dose: Not Given Lorazepam (Ativan) 1 mg PO Q12H PRN PRN Reason: Anxiety Last Admin: 09/09/16 00:36 Dose: 1 mg Morphine Sulfate (Morphine) 2 mg IVP Q4 PRN PRN Reason: Pain, moderate (4-7) Last Admin: 09/09/16 09:30 Dose: 2 mg Nitroglycerin (Nitro-Bid 2% Oint) 1 ea TOP Q6 PRN PRN Reason: Pain, Mild (1-3) Potassium Chloride (K-Dur 20 Meq Er Tab) 40 meq PO DAILY [facility] Last Admin: 09/09/16 10:30 Dose: 40 meq - Labs Labs: 09/09/16 06:47 09/09/16 06:47 PT 12.7 SECONDS (9.7-12.2) H 09/05/16 07:13 INR 1.1 09/05/16 07:13 APTT 23 SECONDS (21-34) 09/05/16 07:13 - Constitutional Appears: No Acute Distress - Neck Exam Neck Exam: Normal Inspection. absent: Tenderness - Respiratory Exam Respiratory Exam: Clear to Ausculation Bilateral, NORMAL BREATHING PATTERN - Cardiovascular Exam Cardiovascular Exam: Tachycardia, REGULAR RHYTHM, +S1, +S2 - GI/Abdominal Exam GI & Abdominal Exam: Soft. absent: Tenderness - Extremities Exam Extremities Exam: Normal Inspection. absent: Pedal Edema - Neurological Exam Neurological Exam: Alert, Awake Assessment and Plan - Assessment and Plan (Free Text) Assessment: 81 yo female with hx of Afib, HTN, DM, COPD, CHF, RA, and met Lung CA admitted for SOB and now DNR/DNI Plan: CHF exacerbation -ICD placement on 08/[address] Gustafson -PCI- mid LAD placement on 08/[address] Cunningham -Cardiac cath results from 08/11/16: Left main patent, LAD has eccentric calcification of the mid vessel. 80% stenosis of the mid vessel with a hazy opacity in the mid. Left circumflex has 50% stenosis in proximal vessel. RCA has a widely patent stent and eccentric calcification in the distal vessel. LVEF is 35%. -Echo 08/02/16 - suboptimal study. LVEF: 35%, septum appears akinetic and dyskinetic, moderate pulmonary hypertension -Previous Echo 06/25/16- Systolic function is mildly impaired, EF- 40-45%. Akinesis and thinning of basal and mid inferior wall and septal wall segments ( both anterior and inferior)indicative of prior [place]. LA moderately dilated. RA mildly dilated. AV moderately sclerotic. Mod tricuspid regurg (please see full report) -BNP on admission 5610 -Continue current management: -Amiodarone 200mg po daily -ASA 325mg po daily -Lasix 40mg po bid -Nitrobid 1 ea top q6 prn pain mild case discussed with Dr. Gustafson <Iraida Gustafson - Last Filed: 09/15/16 09:38> Objective - Vital Signs/Intake and Output Vital Signs (last 24 hours): Temp Pulse Resp BP Pulse Ox 97.7 F 86 20 105/69 98 09/14/16 08:35 09/14/16 12:00 09/14/16 08:35 09/14/16 10:16 09/14/16 08:35 - Labs Labs: 09/14/16 07:20 09/14/16 07:20 PT 12.7 SECONDS (9.7-12.2) H 09/05/16 07:13 INR 1.1 09/05/16 07:13 APTT 23 SECONDS (21-34) 09/05/16 07:13 Attending/Attestation - Attestation I have personally seen and examined this patient.: Yes I have fully participated in the care of the patient.: Yes I have reviewed all pertinent clinical information, including history, physical exam and plan: Yes Notes (Text): 09/15/16 09:37 continue ASA and amiodorone to maintain NSR pt fall risk other anticoagulation contraindicated
--- NOTE | 2016-09-09 16:05 | CP.PCM.PN ---
Subjective - Date & Time of Evaluation Date of Evaluation: 09/09/16 Time of Evaluation: 16:02 - Subjective Subjective: PGY2 progress note for Dr. Beck Pt is seen and examined at bedside. No acute events overnight. Patient continues to complain of abd pain. Denies having any N/V, CP, SOB. patient states that she had two BMs yesterday. 12 point ROS are negative except for the above mentioned. Objective - Vital Signs/Intake and Output Vital Signs (last 24 hours): Temp Pulse Resp BP Pulse Ox 98.1 F 97 H 26 H 124/74 100 09/09/16 11:00 09/09/16 03:00 09/09/16 03:00 09/09/16 10:30 09/09/16 03:00 - Medications Medications: Current Medications Acetaminophen (Tylenol 325mg Tab) 650 mg PO Q6 PRN PRN Reason: Headache Last Admin: 09/07/16 05:46 Dose: 650 mg Albuterol Sulfate (Albuterol 0.083% Inhal Claudia (2.5 Mg/3 Ml) Ud) 2.5 mg INH RQ6 [facility] Last Admin: 09/09/16 13:16 Dose: 2.5 mg Amiodarone HCl (Cordarone) 200 mg PO DAILY [facility] Last Admin: 09/09/16 10:30 Dose: 200 mg Aspirin (Aspirin) 325 mg PO DAILY [facility] Last Admin: 09/09/16 10:30 Dose: 325 mg Docusate Sodium (Colace) 100 mg PO BID [facility] Last Admin: 09/09/16 10:30 Dose: 100 mg Enoxaparin Sodium (Lovenox) 30 mg SC DAILY [facility] Last Admin: 09/09/16 10:30 Dose: 30 mg Famotidine (Pepcid) 20 mg PO DAILY [facility] Last Admin: 09/09/16 10:30 Dose: 20 mg Furosemide (Lasix) 40 mg PO BID [facility] Last Admin: 09/09/16 10:30 Dose: 40 mg Insulin Aspart (Novolog) 0 unit SC ACHS [facility] PRN Reason: Protocol Last Admin: 09/09/16 10:30 Dose: Not Given Lorazepam (Ativan) 1 mg PO Q12H PRN PRN Reason: Anxiety Last Admin: 09/09/16 00:36 Dose: 1 mg Morphine Sulfate (Morphine) 2 mg IVP Q4 PRN PRN Reason: Pain, moderate (4-7) Last Admin: 09/09/16 09:30 Dose: 2 mg Nitroglycerin (Nitro-Bid 2% Oint) 1 ea TOP Q6 PRN PRN Reason: Pain, Mild (1-3) Potassium Chloride (K-Dur 20 Meq Er Tab) 40 meq PO DAILY [facility] Last Admin: 09/09/16 10:30 Dose: 40 meq - Labs Labs: 09/09/16 06:47 09/09/16 06:47 PT 12.7 SECONDS (9.7-12.2) H 09/05/16 07:13 INR 1.1 09/05/16 07:13 APTT 23 SECONDS (21-34) 09/05/16 07:13 - Constitutional Appears: Non-toxic, No Acute Distress - Head Exam Head Exam: ATRAUMATIC - ENT Exam ENT Exam: Mucous Membranes Moist - Respiratory Exam Respiratory Exam: Clear to Ausculation Bilateral, NORMAL BREATHING PATTERN. absent: Accessory Muscle Use, Rales, Rhonchi, Wheezes, Respiratory Distress - Cardiovascular Exam Cardiovascular Exam: REGULAR RHYTHM, +S1, +S2. absent: Gallop, Rubs, Murmur - GI/Abdominal Exam GI & Abdominal Exam: Soft, Normal Bowel Sounds. absent: Firm, Guarding, Rigid, Tenderness, Organomegaly - Extremities Exam Extremities Exam: absent: Pedal Edema, Tenderness - Neurological Exam Neurological Exam: Alert, Awake, Oriented x3 - Psychiatric Exam Psychiatric exam: Normal Affect, Normal Mood - Skin Skin Exam: Dry, Intact, Normal Color, Warm Assessment and Plan - Assessment and Plan (Free Text) Assessment: S/P AICD Placement Per Cardiology: -s/p ICD placement by Dr. Gustafson 08/16 -s/p PCI mid LAD with Dr. Cunningham 08/25 -Currently on: -Amiodarone 200mg po daily -ASA 325mg po daily -Lasix 40mg po bid -Nitrobid 1 ea top q6 prn pain mild -Cardiology, Dr. Gustafson is consulted Abdominal Pain -Abd U/S-limited eval of pancreas secondary to overlying bowel gas; galbladder surgically absent; appropriate post cholecystectomy CBD dilatation; unremarkable otherwise -Obstructive series - no blockage seen; large amount of stool in rectosigmoid colon -Lactulose PO once -Water and soap enema once -Morphine PRN COPD -Duonebs -Cont to monitor HTN -Low normotensive -Hold any home antihypertensive agents at this time. DM Accuchecks Low dose ISS Anxiety Ativan 1 mg PO Q12H PRN Prophylactic measure -Lovenox 30 mg SC daily -Pepcid 20 mg PO BID Orders and management per Dr. Beck's recommendations
[2016-09-10] MEDS: Albuterol 0.083% Inhal Sol (2.5 mg/3 mL) UD INH SCH ×4 (02:12→20:16)
[2016-09-10 07:24] LABS: BASO # 0.1 K/uL (0.0-0.2); BASO % 1.4 % (0.0-2.0); EOS # 0.2 K/uL (0.0-0.7); EOS % 2.6 % (0.0-4.0); HEMOGLOBIN 9.5 g/dL (11.0-16.0); LYMPH # 2.5 K/uL (1.0-4.3); LYMPH % 27.1 % (20.0-40.0); MEAN CELL VOLUME 72.8 fL (81.0-99.0); MEAN CORPUSCULAR HEMOGLOBIN 23.3 pg (27.0-31.0); MEAN PLATELET VOLUME 10.3 fL (7.2-11.7); MONO # 0.9 K/uL (0.0-0.8); MONO % 9.7 % (0.0-10.0); NEUT # 5.3 K/uL (1.8-7.0); NEUT % 59.2 % (50.0-75.0); NRBC % 0.9 % (0.0-2.0); RBC 4.1 Mil/uL (3.80-5.20); RED CELL DISTRIBUTION WIDTH 18.9 % (11.5-14.5)
[2016-09-10 07:40] LABS: ALBUMIN 3.6 g/dL (3.5-5.0)
[2016-09-10 07:43] LABS: ALB/GLOB RATIO 1.1 (1.0-2.1); AST/SGOT 34 U/L (14-36); GFR AFRICAN-AMERICAN > 60; GFR NON-AFRICAN AMERICAN > 60
[2016-09-10 07:44] LABS: ALT/SGPT 26 U/L (9-52); BLOOD UREA NITROGEN 18 mg/dL (7-17); CALCIUM 8.8 mg/dl (8.6-10.4); MAGNESIUM 1.7 mg/dL (1.6-2.3)
[2016-09-10] MEDS: (Novolog) Insulin Aspart, Recombinant 100 u/ml 10 ml vial SC SCH ×4 (07:56→21:37)
[2016-09-10] MEDS: Potassium Chloride 20 mEq ER Tab PO SCH (09:59)
[2016-09-10] MEDS: Enoxaparin 30 mg Syringe SC SCH (10:06)
[2016-09-11] MEDS: (Novolog) Insulin Aspart, Recombinant 100 u/ml 10 ml vial SC SCH ×4 (07:19→21:30)
[2016-09-11] MEDS: Albuterol 0.083% Inhal Sol (2.5 mg/3 mL) UD INH SCH ×2 (07:51→15:00)
[2016-09-11] MEDS: Enoxaparin 30 mg Syringe SC SCH (11:24)
[2016-09-11] MEDS: Potassium Chloride 20 mEq ER Tab PO SCH (11:24)
[2016-09-12] MEDS: (Novolog) Insulin Aspart, Recombinant 100 u/ml 10 ml vial SC SCH ×4 (07:23→22:31)
[2016-09-12 07:42] LABS: ALBUMIN 3.6 g/dL (3.5-5.0)
[2016-09-12 07:45] LABS: ALT/SGPT 26 U/L (9-52); AST/SGOT 26 U/L (14-36); BLOOD UREA NITROGEN 27 mg/dL (7-17); CALCIUM 8.5 mg/dl (8.6-10.4); GFR AFRICAN-AMERICAN > 60; GFR NON-AFRICAN AMERICAN 60
--- NOTE | 2016-09-12 09:48 | CP.PCM.PN ---
<Ronnie Saenz S - Last Filed: 09/12/16 09:51> Subjective - Date & Time of Evaluation Date of Evaluation: 09/12/16 Time of Evaluation: 09:39 - Subjective Subjective: PGY2 Progress note for Cardiology Dr. Gustafson Patient seen and examined at bedside. No acute events overnight as per nursing staff. She continues to have compromised orientation and is only oriented to self. She continues to complain of dull, substernal chest pain in addition to abdominal pain. Both sites are tender to palpation. She denies any SOB/n/v/bowel /bladder complaints/lower extremity pain/swelling. Pt continues to have tachycardia with HR around 105-110 which is likely related to her pain. Objective - Vital Signs/Intake and Output Vital Signs (last 24 hours): Temp Pulse Resp BP Pulse Ox 97.9 F 110 H 20 108/73 100 09/12/16 08:04 09/12/16 08:04 09/12/16 08:04 09/12/16 08:04 09/12/16 08:04 - Medications Medications: Current Medications Acetaminophen (Tylenol 325mg Tab) 650 mg PO Q6 PRN PRN Reason: Headache Last Admin: 09/12/16 04:19 Dose: 650 mg Amiodarone HCl (Cordarone) 200 mg PO DAILY [facility] Last Admin: 09/11/16 11:24 Dose: 200 mg Aspirin (Aspirin) 325 mg PO DAILY [facility] Last Admin: 09/11/16 11:24 Dose: 325 mg Calcium Gluconate (Calcium Gluconate) 500 mg PO STAT [facility] Stop: 09/12/16 09:36 Docusate Sodium (Colace) 100 mg PO BID [facility] Last Admin: 09/11/16 17:35 Dose: 100 mg Enoxaparin Sodium (Lovenox) 30 mg SC DAILY [facility] Last Admin: 09/11/16 11:24 Dose: 30 mg Famotidine (Pepcid) 20 mg PO DAILY [facility] Last Admin: 09/11/16 11:24 Dose: 20 mg Furosemide (Lasix) 40 mg PO BID [facility] Last Admin: 09/11/16 17:36 Dose: 40 mg Insulin Aspart (Novolog) 0 unit SC ACHS [facility] PRN Reason: Protocol Last Admin: 09/12/16 07:23 Dose: Not Given Lorazepam (Ativan) 1 mg PO Q12H PRN PRN Reason: Anxiety Last Admin: 09/11/16 21:32 Dose: 1 mg Nitroglycerin (Nitro-Bid 2% Oint) 1 ea TOP Q6 PRN PRN Reason: Pain, Mild (1-3) Potassium Chloride (K-Dur 20 Meq Er Tab) 40 meq PO DAILY [facility] Last Admin: 09/11/16 11:24 Dose: 40 meq Potassium Chloride (K-Dur 20 Meq Er Tab) 40 meq PO DAILY [facility] - Labs Labs: 09/10/16 07:15 09/12/16 07:01 PT 12.7 SECONDS (9.7-12.2) H 09/05/16 07:13 INR 1.1 09/05/16 07:13 APTT 23 SECONDS (21-34) 09/05/16 07:13 - Constitutional Appears: Confused, Other (she continually reiterates complaints of chest pain and abdominal pain) - Eye Exam Eye Exam: EOMI, Normal appearance - ENT Exam ENT Exam: Mucous Membranes Moist - Respiratory Exam Respiratory Exam: Clear to Ausculation Bilateral, NORMAL BREATHING PATTERN. absent: Accessory Muscle Use, Rales, Rhonchi, Wheezes - Cardiovascular Exam Cardiovascular Exam: Tachycardia, +S1, +S2 - GI/Abdominal Exam GI & Abdominal Exam: Soft, Tenderness - Extremities Exam Extremities Exam: Normal Inspection. absent: Pedal Edema - Neurological Exam Neurological Exam: Alert, Awake - Additional Findings Additional findings: Chest wall and epigastric area are both tender to palpation Assessment and Plan - Assessment and Plan (Free Text) Assessment: 81 yo female with hx of Afib, HTN, DM, COPD, CHF, RA, and met Lung CA admitted for SOB which has improved but is now complaining of chest wall tenderness and abdominal pain Plan: CHF exacerbation Pt is currently experiencing chest wall tenderness that is can be reproduced with palpation of this area. Unlikely to be cardiac in nature. Additionally her SOB is clinically improved. She remains tachycardic which may be secondary to pain that she is experiencing. Recommend revised pain regimen to improve control and monitor for tachycardia. -ICD placed on 08/[address] Gustafson -PCI- mid LAD placed on 08/[address] Cunningham -Cardiac cath results from 08/11/16: Left main patent, LAD has eccentric calcification of the mid vessel. 80% stenosis of the mid vessel with a hazy opacity in the mid. Left circumflex has 50% stenosis in proximal vessel. RCA has a widely patent stent and eccentric calcification in the distal vessel. LVEF is 35%. -Echo 08/02/16 - LVEF: 35%, septum appears akinetic/dyskinetic, moderate pulmonary HTN -Echo 06/25/16- Systolic function is mildly impaired, EF- 40-45%. Akinesis and thinning of basal and mid inferior wall and septal wall segments (both anterior and inferior)indicative of prior IA. LA moderately dilated. RA mildly dilated. AV moderately sclerotic. Mod tricuspid regurg (please see full report) -BNP on admission 5610 -Continue current management: -Amiodarone 200mg po daily -ASA 325mg po daily -Lasix 40mg po bid -Nitrobid 1 ea top q6 prn pain mild Pt is clinically improved and at this point we will be signing off. Thank you for your consult. Please consult as needed. case discussed with Dr. Gustafson <rIaida Gustafson - Last Filed: 09/15/16 09:39> Objective - Vital Signs/Intake and Output Vital Signs (last 24 hours): Temp Pulse Resp BP Pulse Ox 97.7 F 86 20 105/69 98 09/14/16 08:35 09/14/16 12:00 09/14/16 08:35 09/14/16 10:16 09/14/16 08:35 - Labs Labs: 09/14/16 07:20 09/14/16 07:20 PT 12.7 SECONDS (9.7-12.2) H 09/05/16 07:13 INR 1.1 09/05/16 07:13 APTT 23 SECONDS (21-34) 09/05/16 07:13 Attending/Attestation - Attestation I have personally seen and examined this patient.: Yes I have fully participated in the care of the patient.: Yes I have reviewed all pertinent clinical information, including history, physical exam and plan: Yes Notes (Text): 09/15/16 09:39 pt will thomas better pain control sinus tachycardia at times
[2016-09-12] MEDS: Potassium Chloride 20 mEq ER Tab PO SCH (09:49)
[2016-09-12] MEDS: Enoxaparin 30 mg Syringe SC SCH (09:51)
[2016-09-12] MEDS ORDERED: Potassium Chloride 20 mEq ER Tab PO SCH (10:00)
[2016-09-12] MEDS ORDERED: guaiFENesin 100 mg/5 ml Syrup UD PO PRN (10:22)
[2016-09-12 10:56] LABS: MEAN CELL VOLUME 73.6 fL (81.0-99.0)
[2016-09-12 11:01] LABS: HEMOGLOBIN 10.9 g/dL (11.0-16.0); MEAN CORPUSCULAR HEMOGLOBIN 23.1 pg (27.0-31.0); MEAN CORPUSCULAR HGB CONC 31.4 g/dL (33.0-37.0); MEAN PLATELET VOLUME 10.2 fL (7.2-11.7); RBC 4.72 Mil/uL (3.80-5.20); RED CELL DISTRIBUTION WIDTH 18.7 % (11.5-14.5)
[2016-09-12 11:03] LABS: WHITE BLOOD COUNT 15.4 K/uL (4.8-10.8)
--- NOTE | 2016-09-12 13:49 | RAD ---
HISTORY: worsening cough COMPARISON: Comparison chest 09/05/2016 FINDINGS: LUNGS: Lungs are hyperinflated ; rule out underlying chronic changes of emphysema or COPD Previously noted diffuse bilateral infiltrates likely representing pulmonary edema/CHF pulmonary improved however from prior study. There may be some minor residual alveolar-type infiltrates both lung bases. PLEURA: No significant pleural effusion identified, no pneumothorax apparent. CARDIOVASCULAR: Marked cardiomegaly. No change bipolar pacemaker/ defibrillator. OSSEOUS STRUCTURES: No significant abnormalities. VISUALIZED UPPER ABDOMEN: Normal. OTHER FINDINGS: None. IMPRESSION: Previously noted diffuse bilateral infiltrates likely representing pulmonary edema/CHF pulmonary improved however from prior study. There may be some minor residual alveolar-type infiltrates both lung bases. Lungs are hyperinflated ; rule out underlying chronic changes of emphysema or COPD
[2016-09-12] MEDS: Enoxaparin 60 mg Syringe SC SCH ×2 (13:50→21:34)
--- NOTE | 2016-09-12 13:59 | CP.PCM.PN ---
Subjective - Date & Time of Evaluation Date of Evaluation: 09/12/16 Time of Evaluation: 13:56 - Subjective Subjective: PGY [address] Beck Pt is seen and examined at bedside. NO acute events overnight. Patient c/o chest pressure that began yesterday. She continues to c/o of chest pain this morning. Patient denies having any SOB, abd pain, N/V/D/C. Patient's daughter is at bedside and when questioned about patient's compliance with medications at home after last discharge, daughter states that patient did not continue taking her medication at home. She states that the medications were not filled after last discharge. 12 point ROS are negative except for the above mentioned. Objective - Vital Signs/Intake and Output Vital Signs (last 24 hours): Temp Pulse Resp BP Pulse Ox 97.9 F 110 H 20 103/65 100 09/12/16 08:04 09/12/16 08:04 09/12/16 08:04 09/12/16 09:49 09/12/16 08:04 - Medications Medications: Current Medications Acetaminophen (Tylenol 325mg Tab) 650 mg PO Q6 PRN PRN Reason: Headache Last Admin: 09/12/16 09:49 Dose: 650 mg Amiodarone HCl (Cordarone) 200 mg PO DAILY [facility] Last Admin: 09/12/16 09:49 Dose: 200 mg Aspirin (Aspirin) 325 mg PO DAILY [facility] Last Admin: 09/12/16 09:49 Dose: 325 mg Docusate Sodium (Colace) 100 mg PO BID [facility] Last Admin: 09/12/16 09:49 Dose: 100 mg Enoxaparin Sodium (Lovenox) 46 mg SC Q12 [facility] Last Admin: 09/12/16 13:50 Dose: 46 mg Famotidine (Pepcid) 20 mg PO DAILY [facility] Last Admin: 09/12/16 09:49 Dose: 20 mg Furosemide (Lasix) 40 mg PO BID [facility] Last Admin: 09/12/16 09:49 Dose: 40 mg Guaifenesin (Robitussin) 100 mg PO Q4H PRN PRN Reason: Cough Insulin Aspart (Novolog) 0 unit SC ACHS [facility] PRN Reason: Protocol Last Admin: 09/12/16 12:01 Dose: Not Given Morphine Sulfate (Morphine) 1 mg IVP Q4 PRN PRN Reason: Pain, moderate (4-7) Nitroglycerin (Nitro-Bid 2% Oint) 1 ea TOP Q6 PRN PRN Reason: Pain, Mild (1-3) Potassium Chloride (K-Dur 20 Meq Er Tab) 40 meq PO DAILY [facility] Last Admin: 09/12/16 09:49 Dose: 40 meq - Labs Labs: 09/12/16 10:43 09/12/16 07:01 PT 12.7 SECONDS (9.7-12.2) H 09/05/16 07:13 INR 1.1 09/05/16 07:13 APTT 23 SECONDS (21-34) 09/05/16 07:13 - Constitutional Appears: Non-toxic, No Acute Distress - Head Exam Head Exam: ATRAUMATIC - Eye Exam Eye Exam: EOMI - ENT Exam ENT Exam: Mucous Membranes Moist - Respiratory Exam Respiratory Exam: Clear to Ausculation Bilateral, NORMAL BREATHING PATTERN. absent: Rales, Rhonchi, Wheezes - Cardiovascular Exam Cardiovascular Exam: REGULAR RHYTHM, +S1, +S2. absent: Gallop, Rubs, Murmur - GI/Abdominal Exam GI & Abdominal Exam: Soft, Normal Bowel Sounds. absent: Firm, Guarding, Rigid, Tenderness, Organomegaly - Extremities Exam Extremities Exam: absent: Pedal Edema, Tenderness - Neurological Exam Neurological Exam: Alert, Awake, Oriented x3 - Psychiatric Exam Psychiatric exam: Normal Affect, Normal Mood - Skin Skin Exam: Dry, Intact, Normal Color, Warm Assessment and Plan - Assessment and Plan (Free Text) Assessment: S/P AICD Placement Per Cardiology, Dr. Henderson: -s/p ICD placement by Dr. Gustafson 08/16 -s/p PCI mid LAD with Dr. Cunningham 08/25 -Currently on: -Amiodarone 200mg po daily -ASA 325mg po daily -Lasix 40mg po bid -Nitroglycerine 1 ea top q6 prn CAD - s/p PCI in LAD on 08/[address] Cunningham - Patient was discharged on plavix and aspirin after last visit. According to daughter, patient was non-complaint with medications after discharge - Patient is noted to have elevated troponins this morning at 1.82 (on admission 0.039). - Cardiology, Dr. Cunningham is consulted and made aware of the changes - Patient is given stat dose of Plavix 700 mg po and lovenox therapeutic dose 1mg/kg at 50 mg SC - Continue Aspirin qd - Morphine 1 mg q 4 prn for pain Abdominal Pain -Abd U/S-limited eval of pancreas secondary to overlying bowel gas; galbladder surgically absent; appropriate post cholecystectomy CBD dilatation; unremarkable otherwise -Obstructive series - no blockage seen; large amount of stool in rectosigmoid colon -Lactulose PO once -Water and soap enema once -Morphine PRN COPD -Duonebs -Cont to monitor HTN -Low normotensive -Hold any home antihypertensive agents at this time. DM Accuchecks Low dose ISS WIll check Hgb A1c Anxiety Ativan 1 mg PO Q12H PRN Prophylactic measure -Lovenox -Pepcid 20 mg PO BID Orders and management per Dr. Beck's recommendations
--- NOTE | 2016-09-12 18:47 | CP.PCM.PN ---
Subjective - Date & Time of Evaluation Date of Evaluation: 09/12/16 Time of Evaluation: 18:40 - Subjective Subjective: contacted by resident for first time today that patient has elevated troponin. Patient admitted one week ago with chest pain and dyspnea. The patient had stent of the LAD about 3weeks ago. She was discharged on ASA 81 mg daily, and Plavix 75 mg daily. I was informed today that patient has not been taking Plavix for the last week. I instructed to give Plavix 600 mg STAT, and start Lovenox. Objective - Vital Signs/Intake and Output Vital Signs (last 24 hours): Temp Pulse Resp BP Pulse Ox 97.8 F 87 20 135/71 98 09/12/16 15:21 09/12/16 15:21 09/12/16 15:21 09/12/16 17:37 09/12/16 15:21 Intake and Output: 09/12/16 09/12/16 06:59 18:59 Intake Total 100 Balance 100 - Medications Medications: Current Medications Acetaminophen (Tylenol 325mg Tab) 650 mg PO Q6 PRN PRN Reason: Headache Last Admin: 09/12/16 09:49 Dose: 650 mg Amiodarone HCl (Cordarone) 200 mg PO DAILY [facility] Last Admin: 09/12/16 09:49 Dose: 200 mg Aspirin (Aspirin) 325 mg PO DAILY [facility] Last Admin: 09/12/16 09:49 Dose: 325 mg Clopidogrel Bisulfate (Plavix) 75 mg PO DAILY [facility] Docusate Sodium (Colace) 100 mg PO BID [facility] Last Admin: 09/12/16 17:37 Dose: 100 mg Enoxaparin Sodium (Lovenox) 46 mg SC Q12 [facility] Last Admin: 09/12/16 13:50 Dose: 46 mg Famotidine (Pepcid) 20 mg PO DAILY [facility] Last Admin: 09/12/16 09:49 Dose: 20 mg Furosemide (Lasix) 40 mg PO BID [facility] Last Admin: 09/12/16 17:37 Dose: 40 mg Guaifenesin (Robitussin) 100 mg PO Q4H PRN PRN Reason: Cough Insulin Aspart (Novolog) 0 unit SC ACHS [facility] PRN Reason: Protocol Last Admin: 09/12/16 16:40 Dose: Not Given Morphine Sulfate (Morphine) 1 mg IVP Q4 PRN PRN Reason: Pain, moderate (4-7) Last Admin: 09/12/16 14:02 Dose: 1 mg Nitroglycerin (Nitro-Bid 2% Oint) 1 ea TOP Q6 PRN PRN Reason: Pain, Mild (1-3) Potassium Chloride (K-Dur 20 Meq Er Tab) 40 meq PO DAILY [facility] Last Admin: 09/12/16 09:49 Dose: 40 meq - Labs Labs: 09/12/16 10:43 09/12/16 07:01 PT 12.7 SECONDS (9.7-12.2) H 09/05/16 07:13 INR 1.1 09/05/16 07:13 APTT 23 SECONDS (21-34) 09/05/16 07:13
[2016-09-13] MEDS: (Novolog) Insulin Aspart, Recombinant 100 u/ml 10 ml vial SC SCH ×4 (07:51→21:49)
--- NOTE | 2016-09-13 08:22 | CP.PCM.CON ---
History of Present Illness - History of Present Illness History of Present Illness: Patient seen/examined. full consult to follow. Currently chest pain free. Reviewed the importance of dual antiplatelet therapy with the patient. Plavix reordered. Discussed the possibility of repeat cardiac ctheterization, however she wishes medical therapy. At this time roni reassess while patient isn on appropriate therapy. Past Patient History - Infectious Disease Hx of Infectious Diseases: None - Tetanus Immunizations Tetanus Immunization: Unknown - Past Medical History & Family History Past Medical History?: Yes - Past Social History Smoking Status: Former Smoker - CARDIAC Hx Cardiac Disorders: Yes (A FIB, CAD) Hx Congestive Heart Failure: Yes Hx Hypercholesterolemia: Yes Hx Hypertension: Yes - PULMONARY Hx Chronic Obstructive Pulmonary Disease (COPD): Yes - NEUROLOGICAL Hx Dementia: Yes - HEENT Hx HEENT Problems: No - RENAL Hx Chronic Kidney Disease: No Hx Kidney Stones: No - ENDOCRINE/METABOLIC Hx Diabetes Mellitus Type 2: Yes - HEMATOLOGICAL/ONCOLOGICAL Hx Anemia: No Hx Human Immunodeficiency Virus (HIV): No Hx Sickle Cell Disease: No - INTEGUMENTARY Hx Dermatological Problems: No - MUSCULOSKELETAL/RHEUMATOLOGICAL Hx Arthritis: Yes Hx Falls: No Hx Osteoporosis: Yes Hx Rheumatoid Arthritis: Yes - GASTROINTESTINAL Hx Gall Bladder Disease: Yes - GENITOURINARY/GYNECOLOGICAL Hx Sexually Transmitted Disorders: No - PSYCHIATRIC Hx Anxiety: Yes Hx Bipolar Disorder: No Hx Depression: No Hx Post Traumatic Stress Disorder: No Hx Schizophrenia: No Hx Substance Use: No - SURGICAL HISTORY Hx Cholecystectomy: Yes Hx Coronary Stent: Yes (proximal RCA stent) - ANESTHESIA Hx Anesthesia: Yes Hx Anesthesia Reactions: No Hx Malignant Hyperthermia: No Meds Allergies/Adverse Reactions: Allergies Allergy/AdvReac Type Severity Reaction Status Date / Time moxifloxacin HCl Allergy Severe ANAPHYLAXIS Verified 09/05/16 07:00 [From Avelox] - Medications Medications: Current Medications Acetaminophen (Tylenol 325mg Tab) 650 mg PO Q6 PRN PRN Reason: Headache Last Admin: 09/12/16 09:49 Dose: 650 mg Amiodarone HCl (Cordarone) 200 mg PO DAILY [facility] Last Admin: 09/12/16 09:49 Dose: 200 mg Aspirin (Aspirin) 325 mg PO DAILY [facility] Last Admin: 09/12/16 09:49 Dose: 325 mg Clopidogrel Bisulfate (Plavix) 75 mg PO DAILY [facility] Docusate Sodium (Colace) 100 mg PO BID [facility] Last Admin: 09/12/16 17:37 Dose: 100 mg Enoxaparin Sodium (Lovenox) 46 mg SC Q12 [facility] Last Admin: 09/12/16 21:34 Dose: 46 mg Famotidine (Pepcid) 20 mg PO DAILY [facility] Last Admin: 09/12/16 09:49 Dose: 20 mg Furosemide (Lasix) 40 mg PO BID [facility] Last Admin: 09/12/16 17:37 Dose: 40 mg Guaifenesin (Robitussin) 100 mg PO Q4H PRN PRN Reason: Cough Insulin Aspart (Novolog) 0 unit SC ACHS [facility] PRN Reason: Protocol Last Admin: 09/13/16 07:51 Dose: Not Given Morphine Sulfate (Morphine) 1 mg IVP Q4 PRN PRN Reason: Pain, moderate (4-7) Last Admin: 09/12/16 22:28 Dose: 1 mg Nitroglycerin (Nitro-Bid 2% Oint) 1 ea TOP Q6 PRN PRN Reason: Pain, Mild (1-3) Potassium Chloride (K-Dur 20 Meq Er Tab) 40 meq PO DAILY [facility] Last Admin: 09/12/16 09:49 Dose: 40 meq Results - Vital Signs Recent Vital Signs: Last Vital Signs Temp 98.1 F 09/13/16 07:32 Pulse 93 H 09/13/16 07:32 Resp 20 09/13/16 07:32 BP 106/73 09/13/16 07:32 Pulse Ox 99 09/13/16 07:32 - Labs Result Diagrams: 09/12/16 10:43 09/12/16 07:01 Labs: Laboratory Results - last 24 hr 09/12/16 09/12/16 09/12/16 10:43 10:43 11:35 WBC 15.4 H D RBC 4.72 Hgb 10.9 L Hct 34.7 MCV 73.6 L MCH 23.1 L MCHC 31.4 L RDW 18.7 H Plt Count 310 MPV 10.2 POC Glucose (mg/dL) 124 H Troponin I 1.8200 H* 09/12/16 09/12/16 09/12/16 16:16 19:48 21:48 WBC RBC Hgb Hct MCV MCH MCHC RDW Plt Count MPV POC Glucose (mg/dL) 142 H 129 H Troponin I 1.4400 H* 09/13/16 06:06 WBC RBC Hgb Hct MCV MCH MCHC RDW Plt Count MPV POC Glucose (mg/dL) 129 H Troponin I
--- NOTE | 2016-09-13 08:23 | CP.PCM.CON ---
Past Patient History - Infectious Disease Hx of Infectious Diseases: None - Tetanus Immunizations Tetanus Immunization: Unknown - Past Medical History & Family History Past Medical History?: Yes - Past Social History Smoking Status: Former Smoker - CARDIAC Hx Cardiac Disorders: Yes (A FIB, CAD) Hx Congestive Heart Failure: Yes Hx Hypercholesterolemia: Yes Hx Hypertension: Yes - PULMONARY Hx Chronic Obstructive Pulmonary Disease (COPD): Yes - NEUROLOGICAL Hx Dementia: Yes - HEENT Hx HEENT Problems: No - RENAL Hx Chronic Kidney Disease: No Hx Kidney Stones: No - ENDOCRINE/METABOLIC Hx Diabetes Mellitus Type 2: Yes - HEMATOLOGICAL/ONCOLOGICAL Hx Anemia: No Hx Human Immunodeficiency Virus (HIV): No Hx Sickle Cell Disease: No - INTEGUMENTARY Hx Dermatological Problems: No - MUSCULOSKELETAL/RHEUMATOLOGICAL Hx Arthritis: Yes Hx Falls: No Hx Osteoporosis: Yes Hx Rheumatoid Arthritis: Yes - GASTROINTESTINAL Hx Gall Bladder Disease: Yes - GENITOURINARY/GYNECOLOGICAL Hx Sexually Transmitted Disorders: No - PSYCHIATRIC Hx Anxiety: Yes Hx Bipolar Disorder: No Hx Depression: No Hx Post Traumatic Stress Disorder: No Hx Schizophrenia: No Hx Substance Use: No - SURGICAL HISTORY Hx Cholecystectomy: Yes Hx Coronary Stent: Yes (proximal RCA stent) - ANESTHESIA Hx Anesthesia: Yes Hx Anesthesia Reactions: No Hx Malignant Hyperthermia: No Meds Allergies/Adverse Reactions: Allergies Allergy/AdvReac Type Severity Reaction Status Date / Time moxifloxacin HCl Allergy Severe ANAPHYLAXIS Verified 09/05/16 07:00 [From Avelox] - Medications Medications: Current Medications Acetaminophen (Tylenol 325mg Tab) 650 mg PO Q6 PRN PRN Reason: Headache Last Admin: 09/12/16 09:49 Dose: 650 mg Amiodarone HCl (Cordarone) 200 mg PO DAILY [facility] Last Admin: 09/12/16 09:49 Dose: 200 mg Aspirin (Aspirin) 325 mg PO DAILY [facility] Last Admin: 09/12/16 09:49 Dose: 325 mg Clopidogrel Bisulfate (Plavix) 75 mg PO DAILY [facility] Docusate Sodium (Colace) 100 mg PO BID [facility] Last Admin: 09/12/16 17:37 Dose: 100 mg Enoxaparin Sodium (Lovenox) 46 mg SC Q12 [facility] Last Admin: 09/12/16 21:34 Dose: 46 mg Famotidine (Pepcid) 20 mg PO DAILY [facility] Last Admin: 09/12/16 09:49 Dose: 20 mg Furosemide (Lasix) 40 mg PO BID [facility] Last Admin: 09/12/16 17:37 Dose: 40 mg Guaifenesin (Robitussin) 100 mg PO Q4H PRN PRN Reason: Cough Insulin Aspart (Novolog) 0 unit SC ACHS [facility] PRN Reason: Protocol Last Admin: 09/13/16 07:51 Dose: Not Given Morphine Sulfate (Morphine) 1 mg IVP Q4 PRN PRN Reason: Pain, moderate (4-7) Last Admin: 09/12/16 22:28 Dose: 1 mg Nitroglycerin (Nitro-Bid 2% Oint) 1 ea TOP Q6 PRN PRN Reason: Pain, Mild (1-3) Potassium Chloride (K-Dur 20 Meq Er Tab) 40 meq PO DAILY [facility] Last Admin: 09/12/16 09:49 Dose: 40 meq Results - Vital Signs Recent Vital Signs: Last Vital Signs Temp 98.1 F 09/13/16 07:32 Pulse 93 H 09/13/16 07:32 Resp 20 09/13/16 07:32 BP 106/73 09/13/16 07:32 Pulse Ox 99 09/13/16 07:32 - Labs Result Diagrams: 09/12/16 10:43 09/12/16 07:01 Labs: Laboratory Results - last 24 hr 09/12/16 09/12/16 09/12/16 10:43 10:43 11:35 WBC 15.4 H D RBC 4.72 Hgb 10.9 L Hct 34.7 MCV 73.6 L MCH 23.1 L MCHC 31.4 L RDW 18.7 H Plt Count 310 MPV 10.2 POC Glucose (mg/dL) 124 H Troponin I 1.8200 H* 09/12/16 09/12/16 09/12/16 16:16 19:48 21:48 WBC RBC Hgb Hct MCV MCH MCHC RDW Plt Count MPV POC Glucose (mg/dL) 142 H 129 H Troponin I 1.4400 H* 09/13/16 06:06 WBC RBC Hgb Hct MCV MCH MCHC RDW Plt Count MPV POC Glucose (mg/dL) 129 H Troponin I
[2016-09-13 08:45] LABS: BASO # 0.2 K/uL (0.0-0.2); BASO % 1.3 % (0.0-2.0); EOS # 0.1 K/uL (0.0-0.7); EOS % 0.8 % (0.0-4.0); HEMOGLOBIN 9.4 g/dL (11.0-16.0); LYMPH # 1.3 K/uL (1.0-4.3); LYMPH % 9.6 % (20.0-40.0); MEAN CELL VOLUME 72.8 fL (81.0-99.0); MEAN CORPUSCULAR HEMOGLOBIN 22.8 pg (27.0-31.0); MEAN CORPUSCULAR HGB CONC 31.3 g/dL (33.0-37.0); MEAN PLATELET VOLUME 9.8 fL (7.2-11.7); MONO # 1.5 K/uL (0.0-0.8); MONO % 11.7 % (0.0-10.0); NEUT % 76.6 % (50.0-75.0); NRBC % 0.2 % (0.0-2.0); PLATELET COUNT 323 K/uL (130-400); RBC 4.13 Mil/uL (3.80-5.20); RED CELL DISTRIBUTION WIDTH 18.2 % (11.5-14.5); WHITE BLOOD COUNT 13.1 K/uL (4.8-10.8)
[2016-09-13 09:03] LABS: ALBUMIN 3.7 g/dL (3.5-5.0)
[2016-09-13 09:05] LABS: GFR AFRICAN-AMERICAN > 60; GFR NON-AFRICAN AMERICAN > 60
[2016-09-13 09:06] LABS: ALT/SGPT 24 U/L (9-52); AST/SGOT 24 U/L (14-36); BLOOD UREA NITROGEN 19 mg/dL (7-17)
[2016-09-13 09:07] LABS: CALCIUM 8.9 mg/dl (8.6-10.4)
[2016-09-13 09:11] LABS: CK-MB 1.16 ng/mL (0.0-3.38)
--- NOTE | 2016-09-13 09:36 | CP.PCM.PN ---
Subjective - Date & Time of Evaluation Date of Evaluation: 09/13/16 Time of Evaluation: 07:00 - Subjective Subjective: Medicine Progress Note- Dr. Beck's Service: Patient seen and examined at bedside this AM. Patient is sitting up and eating. She is complaining of abdominal pain today. States she has not had a BM since last week. Patient admits to chest pain and SOB today, unchanged from yesterday. Patient was seen by Dr. Cunningham this AM. Patient does not want cardiac cath, stating to me she is afraid and would prefer "just medications for now". Objective - Vital Signs/Intake and Output Vital Signs (last 24 hours): Temp Pulse Resp BP Pulse Ox 98.1 F 93 H 20 106/73 99 09/13/16 07:32 09/13/16 07:32 09/13/16 07:32 09/13/16 07:32 09/13/16 07:32 Intake and Output: 09/13/16 09/13/16 06:59 18:59 Intake Total 200 Balance 200 - Medications Medications: Current Medications Acetaminophen (Tylenol 325mg Tab) 650 mg PO Q6 PRN PRN Reason: Headache Last Admin: 09/12/16 09:49 Dose: 650 mg Amiodarone HCl (Cordarone) 200 mg PO DAILY [facility] Last Admin: 09/12/16 09:49 Dose: 200 mg Aspirin (Aspirin) 325 mg PO DAILY [facility] Last Admin: 09/12/16 09:49 Dose: 325 mg Clopidogrel Bisulfate (Plavix) 75 mg PO DAILY [facility] Docusate Sodium (Colace) 100 mg PO BID [facility] Last Admin: 09/12/16 17:37 Dose: 100 mg Enoxaparin Sodium (Lovenox) 46 mg SC Q12 [facility] Last Admin: 09/12/16 21:34 Dose: 46 mg Famotidine (Pepcid) 20 mg PO DAILY [facility] Last Admin: 09/12/16 09:49 Dose: 20 mg Furosemide (Lasix) 40 mg PO BID [facility] Last Admin: 09/12/16 17:37 Dose: 40 mg Guaifenesin (Robitussin) 100 mg PO Q4H PRN PRN Reason: Cough Insulin Aspart (Novolog) 0 unit SC ACHS [facility] PRN Reason: Protocol Last Admin: 09/13/16 07:51 Dose: Not Given Morphine Sulfate (Morphine) 1 mg IVP Q4 PRN PRN Reason: Pain, moderate (4-7) Last Admin: 09/13/16 08:38 Dose: 1 mg Nitroglycerin (Nitro-Bid 2% Oint) 1 ea TOP Q6 PRN PRN Reason: Pain, Mild (1-3) Potassium Chloride (K-Dur 20 Meq Er Tab) 40 meq PO DAILY [facility] Last Admin: 09/12/16 09:49 Dose: 40 meq Potassium Chloride (K-Dur 20 Meq Er Tab) 20 meq PO ONCE ONE Stop: 09/13/16 14:01 - Labs Labs: 09/13/16 08:34 09/13/16 08:34 PT 12.7 SECONDS (9.7-12.2) H 09/05/16 07:13 INR 1.1 09/05/16 07:13 APTT 23 SECONDS (21-34) 09/05/16 07:13 - Constitutional Appears: No Acute Distress - Head Exam Head Exam: NORMAL INSPECTION, NORMOCEPHALIC - Eye Exam Eye Exam: EOMI, Normal appearance - ENT Exam ENT Exam: Mucous Membranes Moist - Neck Exam Neck Exam: Full ROM - Respiratory Exam Respiratory Exam: Clear to Ausculation Bilateral, NORMAL BREATHING PATTERN - Cardiovascular Exam Cardiovascular Exam: REGULAR RHYTHM, +S1, +S2 - GI/Abdominal Exam GI & Abdominal Exam: Soft. absent: Distended, Firm, Tenderness - Extremities Exam Extremities Exam: Full ROM, Normal Inspection - Neurological Exam Neurological Exam: Alert, Awake, Oriented x3 - Psychiatric Exam Psychiatric exam: Normal Affect, Normal Mood - Skin Skin Exam: Normal Color, Warm Assessment and Plan - Assessment and Plan (Free Text) Assessment: 1) Elevated troponins History of CAD. Trop: 1.822-->1.440--> 1.12. s/p PCI in LAD on 08/[address] Cunningham Cardiac Cath (12/31/15): Severe 2-vessel CAD. Successful PCI at mid right coronary w. GARRY. Severe lt ventricular systolic dysfunction (see full report) Patient was discharged on Plavix and aspirin after last visit. According to daughter, patient was non-complaint with medications after discharge Dr. Gustafson- cardio consult - help appreciated Dr. Cunningham- cardio consult -help appreciated EKG - Sinus rhythm with premature atrial complexes. Possible Left atrial enlargement. Left axis deviation. Right bundle branch block. Anterior, Inferior infarct, age undetermined. FLP WNL April [address] Cunningham, patient does not want cath at this time. He recommends conservative treatment at this time given patient's due to patient's fragile condition, conservative treatment is recommended. - Aspirin 325 mg PO daily - Plavix 75 mg PO daily - Therapeutic Lovenox SC Q12H - Morphine 1 mg q 4 prn for pain 2) Congestive Heart Failure Exacerbation Diastolic dysfunction. s/p ICD placement by Dr. Gustafson 08/16 Dr. Gustafson- cardio consult - help appreciated Dr. Cunningham- cardio consult -help appreciated ECHO (08/02/16)- Read as: 35% EF, suboptimal study. Moderate MR, moderate pulmonary HTN. NM Muga scan/ for assessment of EF: Calculated EF of 32% BNP 5610 (previous admission: 2260, 2790, 2960, 3500, 7510, 4380) CXR (09/12/16):Previously noted diffuse bilateral infiltrates likely representing pulmonary edema/CHF pulmonary improved however from prior study. There may be some minor residual alveolar-type infiltrates both lung bases. Lungs are hyperinflated ; rule out underlying chronic changes of emphysema or COPD(see full report) - ASA 325mg PO daily - Plavix 75mg PO Daily - Lasix 40mg PO BID 3) Leukocytosis WBC down from 15.4 to 13.1 today UA 09/05/16 Protein 2+, Urobilinogen 4.0, RBC 4. Urine Cx 09/05/16 negative Blood Cx 09/05/16 negative X 5 days CXR 09/12/16: Previously noted diffuse bilateral infiltrates likely representing pulmonary edema/CHF pulmonary improved however from prior study. There may be some minor residual alveolar-type infiltrates both lung bases. Lungs are hyperinflated ; rule out underlying chronic changes of emphysema or COPD. F/U Repeat UA 4) HTN -Patient with hypotension on past admissions. -Low normotensive -Hold antihypertensive agents at this time. 4) Abdominal Pain -Abd U/S-limited eval of pancreas secondary to overlying bowel gas; galbladder surgically absent; appropriate post cholecystectomy CBD dilatation; unremarkable otherwise -Obstructive series - no blockage seen; large amount of stool in rectosigmoid colon -Lactulose PO once today -Water and soap enema once -Morphine PRN 5) Anxiety Ativan 1 mg PO Q12H PRN 6) Rheumatoid Arthritis - Pt family reports Percocet use for pain at home - Morphine 1mg Q4H PRN for pain - Will consider Percocet 5/325 1 tab PO Q4H as needed- one time doses. 7) COPD -Duonebs -Cont to monitor 8) DM Accuchecks Low dose ISS WIll check Hgb A1c 9) Prophylaxis - Therapeutic Lovenox SC Q12H - Pepcid 20mg PO daily - SCDs Management as per Dr. Beck.
[2016-09-13 09:46] LABS: ANISOCYTOSIS SLIGHT; BANDS 1 % (0-2); BASOPHIL 1 % (0-2); HYPOCHROMIC SLIGHT; LYMPHOCYTE 8 % (20-40); MICROCYTOSIS SLIGHT; MONOCYTE 12 % (0-10); NEUTROPHIL 78 % (50-75); OVALOCYTES SLIGHT; PLATELET ESTIMATE NORMAL (NORMAL); POIKILOCYTOSIS SLIGHT; POLYCHROMIC SLIGHT; TARGET CELLS SLIGHT; TOTAL CELLS COUNTED 100
[2016-09-13 09:47] LABS: GIANT PLATELETS PRESENT
[2016-09-13 10:35] LABS: MAGNESIUM 1.8 mg/dL (1.6-2.3)
[2016-09-13] MEDS: Potassium Chloride 20 mEq ER Tab PO SCH (10:40)
[2016-09-13] MEDS: Enoxaparin 60 mg Syringe SC SCH ×2 (10:42→22:40)
[2016-09-13] MEDS ORDERED: Potassium Chloride 20 mEq ER Tab PO ONE (14:00)
[2016-09-13 17:40] LABS: SQUAMOUS EPITHIAL 6 /hpf (0-5); URINE BILIRUBIN NEGATIVE (NEGATIVE); URINE BLOOD 1+ (NEGATIVE); URINE CLARITY Hazy (Clear); URINE COLOR Yellow (YELLOW); URINE GLUCOSE (UA) NORMAL (Normal); URINE LEUKOCYTE ESTERASE 2+ Leu/uL (Negative); URINE NITRATE NEGATIVE (NEGATIVE); URINE PROTEIN 1+ mg/dL (NEGATIVE)
--- NOTE | 2016-09-13 19:23 | CARD ---
APPROVED REPORT EKG Measurement Heart [id number] ID [id number] <Conclusion> Sinus tachycardia with occasional premature atrial and ventricular complexes Left axis deviation Right bundle branch block Inferior infarct, age undetermined Anterolateral infarct, age undetermined Abnormal ECG
[2016-09-14 00:38] VITALS: RESP 20
[2016-09-14 07:29] LABS: BASO # 0.1 K/uL (0.0-0.2); BASO % 1.2 % (0.0-2.0); EOS % 0.3 % (0.0-4.0); HEMOGLOBIN 9.1 g/dL (11.0-16.0); LYMPH # 1.6 K/uL (1.0-4.3); LYMPH % 13.6 % (20.0-40.0); MEAN CORPUSCULAR HEMOGLOBIN 22.4 pg (27.0-31.0); MEAN CORPUSCULAR HGB CONC 31.1 g/dL (33.0-37.0); MEAN PLATELET VOLUME 9.8 fL (7.2-11.7); MONO # 1.5 K/uL (0.0-0.8); MONO % 12.4 % (0.0-10.0); NEUT # 8.5 K/uL (1.8-7.0); NEUT % 72.5 % (50.0-75.0); NRBC % 0.2 % (0.0-2.0); RBC 4.07 Mil/uL (3.80-5.20); RED CELL DISTRIBUTION WIDTH 18.4 % (11.5-14.5); WHITE BLOOD COUNT 11.7 K/uL (4.8-10.8)
[2016-09-14] MEDS: (Novolog) Insulin Aspart, Recombinant 100 u/ml 10 ml vial SC SCH ×2 (08:11→12:06)
[2016-09-14 08:13] LABS: ALBUMIN 3.5 g/dL (3.5-5.0)
[2016-09-14 08:16] LABS: ALT/SGPT 24 U/L (9-52); AST/SGOT 31 U/L (14-36); BLOOD UREA NITROGEN 18 mg/dL (7-17); CALCIUM 8.8 mg/dl (8.6-10.4); GFR AFRICAN-AMERICAN > 60; GFR NON-AFRICAN AMERICAN > 60
[2016-09-14 08:17] LABS: MAGNESIUM 1.9 mg/dL (1.6-2.3)
[2016-09-14 09:02] VITALS: BP 105/69; PULSE 86; TEMP 97.7; O2SAT 98
--- NOTE | 2016-09-14 09:15 | CP.PCM.PN ---
Subjective - Date & Time of Evaluation Date of Evaluation: 09/14/16 Time of Evaluation: 07:30 - Subjective Subjective: Medicine Note- Dr Beck's service Patient seen and examined. Patient states that she does not feel well and feels very weak. Patient states that she no longer has abdominal pain or chest pain. Patient is breathing on nasal cannula and says that she does not like to wear the BIPAP mask because it does not fit her well. Patient denies fever, chest pain, cough, dysuria, constipation, and palpitations. Objective - Vital Signs/Intake and Output Vital Signs (last 24 hours): Temp Pulse Resp BP Pulse Ox 97.7 F 86 20 105/69 98 09/14/16 08:35 09/14/16 08:35 09/14/16 08:35 09/14/16 08:35 09/14/16 08:35 Intake and Output: 09/14/16 09/14/16 06:59 18:59 Intake Total 200 Balance 200 - Medications Medications: Current Medications Acetaminophen (Tylenol 325mg Tab) 650 mg PO Q6 PRN PRN Reason: Headache Last Admin: 09/12/16 09:49 Dose: 650 mg Amiodarone HCl (Cordarone) 200 mg PO DAILY [facility] Last Admin: 09/13/16 10:40 Dose: 200 mg Aspirin (Aspirin) 325 mg PO DAILY [facility] Last Admin: 09/13/16 10:40 Dose: 325 mg Clopidogrel Bisulfate (Plavix) 75 mg PO DAILY [facility] Last Admin: 09/13/16 10:40 Dose: 75 mg Docusate Sodium (Colace) 100 mg PO BID [facility] Last Admin: 09/13/16 18:10 Dose: Not Given Enoxaparin Sodium (Lovenox) 46 mg SC Q12 [facility] Last Admin: 09/13/16 22:40 Dose: Not Given Famotidine (Pepcid) 20 mg PO DAILY [facility] Last Admin: 09/13/16 10:41 Dose: 20 mg Furosemide (Lasix) 40 mg PO BID [facility] Last Admin: 09/13/16 18:09 Dose: 40 mg Guaifenesin (Robitussin) 100 mg PO Q4H PRN PRN Reason: Cough Insulin Aspart (Novolog) 0 unit SC ACHS [facility] PRN Reason: Protocol Last Admin: 09/14/16 08:11 Dose: Not Given Lorazepam (Ativan) 1 mg PO Q12H PRN PRN Reason: Anxiety Last Admin: 09/13/16 10:41 Dose: 1 mg Morphine Sulfate (Morphine) 1 mg IVP Q4 PRN PRN Reason: Pain, moderate (4-7) Last Admin: 09/13/16 18:03 Dose: 1 mg Nitroglycerin (Nitro-Bid 2% Oint) 1 ea TOP Q6 PRN PRN Reason: Pain, Mild (1-3) Potassium Chloride (K-Dur 20 Meq Er Tab) 40 meq PO DAILY [facility] Last Admin: 09/13/16 10:40 Dose: 40 meq - Labs Labs: 09/14/16 07:20 09/14/16 07:20 PT 12.7 SECONDS (9.7-12.2) H 09/05/16 07:13 INR 1.1 09/05/16 07:13 APTT 23 SECONDS (21-34) 09/05/16 07:13 - Constitutional Appears: No Acute Distress, Cachectic, Chronically Ill - Head Exam Head Exam: ATRAUMATIC, NORMOCEPHALIC - Eye Exam Eye Exam: EOMI, Normal appearance - ENT Exam ENT Exam: Mucous Membranes Moist - Respiratory Exam Respiratory Exam: NORMAL BREATHING PATTERN. absent: Accessory Muscle Use, Wheezes, Respiratory Distress - Cardiovascular Exam Cardiovascular Exam: REGULAR RHYTHM (skipped beats noted on auscultation ), +S1 , +S2 - GI/Abdominal Exam GI & Abdominal Exam: Soft, Normal Bowel Sounds. absent: Distended, Firm, Guarding, Rigid, Tenderness - Extremities Exam Extremities Exam: Normal Inspection. absent: Joint Swelling, Pedal Edema, Tenderness - Neurological Exam Neurological Exam: Alert, Awake, Oriented x3 - Psychiatric Exam Psychiatric exam: Anxious, Normal Affect - Skin Skin Exam: Dry, Intact, Normal Color, Warm Assessment and Plan - Assessment and Plan (Free Text) Assessment: 1) Elevated troponins Denies chest pain, hemodynamically stable. History of CAD. Trop: 1.822-->1.440- -> 1.12. s/p PCI in LAD on 08/[address] Cunningham Cardiac Cath (12/31/15): Severe 2-vessel CAD. Successful PCI at mid right coronary w. GARRY. Severe lt ventricular systolic dysfunction (see full report) Patient was discharged on Plavix and aspirin after last visit. According to daughter, patient was non-complaint with medications after discharge Dr. Gustafson- cardio consult - help appreciated Dr. Cunningham- cardio consult -help appreciated EKG - Sinus rhythm with premature atrial complexes. Possible Left atrial enlargement. Left axis deviation. Right bundle branch block. Anterior, Inferior infarct, age undetermined. FLP WNL April [address] Cunningham, patient does not want cath at this time. He recommends conservative treatment at this time given patient's due to patient's fragile condition, conservative treatment is recommended. - Aspirin 325 mg PO daily - Plavix 75 mg PO daily - Therapeutic Lovenox SC Q12H - Morphine 1 mg q 4 prn for pain 2) Congestive Heart Failure Exacerbation Diastolic dysfunction. s/p ICD placement by Dr. Gustafson 08/16 Dr. Gustafson- cardio consult - help appreciated Dr. Cunningham- cardio consult -help appreciated ECHO (08/02/16)- Read as: 35% EF, suboptimal study. Moderate MR, moderate pulmonary HTN. NM Muga scan/ for assessment of EF: Calculated EF of 32% BNP 5610 (previous admission: 2260, 2790, 2960, 3500, 7510, 4380) CXR (09/12/16):Previously noted diffuse bilateral infiltrates likely representing pulmonary edema/CHF pulmonary improved however from prior study. There may be some minor residual alveolar-type infiltrates both lung bases. Lungs are hyperinflated ; rule out underlying chronic changes of emphysema or COPD(see full report) - ASA 325mg PO daily - Plavix 75mg PO Daily - Lasix 40mg PO BID - Amiodarone 200mg PO daily 3) Leukocytosis WBC decreasing to 11.7 today, no bands, afebrile UA 09/05/16 Protein 2+, Urobilinogen 4.0, RBC 4. 7/18 Repeat UA 2+ LE, squamous cells present (patient is asymptomatic and denies urinary symptoms) Urine Cx 09/05/16 negative Blood Cx 09/05/16 negative X 5 days CXR 09/12/16: Previously noted diffuse bilateral infiltrates likely representing pulmonary edema/CHF pulmonary improved however from prior study. There may be some minor residual alveolar-type infiltrates both lung bases. Lungs are hyperinflated ; rule out underlying chronic changes of emphysema or COPD. 4) HTN Currently normotensive - Lasix 40mg PO BID - Amiodarone 200mg PO daily 4) Abdominal Pain - Resolved -Abd U/S-limited eval of pancreas secondary to overlying bowel gas; galbladder surgically absent; appropriate post cholecystectomy CBD dilatation; unremarkable otherwise -Obstructive series - no blockage seen; large amount of stool in rectosigmoid colon -Water and soap enema once. Patient had bowel movement on 09/13. -Morphine PRN 5) Anxiety - History of anxiety - Ativan 1 mg PO Q12H PRN 6) Rheumatoid Arthritis - Pt family reports Percocet use for pain at home - Morphine 1mg Q4H PRN for pain - Will consider Percocet 5/325 1 tab PO Q4H as needed- one time doses. 7) COPD - Stable - Duonebs 3ml INH q6h [facility] - Continue on BIPAP and nasal cannula - CXR 09/12/16: Previously noted diffuse bilateral infiltrates likely representing pulmonary edema/CHF pulmonary improved however from prior study. There may be some minor residual alveolar-type infiltrates both lung bases. Lungs are hyperinflated ; rule out underlying chronic changes of emphysema or COPD. 8) DM - Accuchecks. Sugars well controlled in hospital. - Low dose ISS - HgA1C 5.7 9) Prophylaxis - Therapeutic Lovenox SC Q12H - Pepcid 20mg PO daily - SCDs - ASA and Plavix - Discharge pending placement Management as per Dr. Beck.
[2016-09-14] MEDS: Enoxaparin 60 mg Syringe SC SCH (10:15)
[2016-09-14] MEDS: Potassium Chloride 20 mEq ER Tab PO SCH (10:16)
[2016-09-14] MEDS ORDERED: Albuterol-Ipratrop 3 mg / 0.5 (3 ml) UD INH SCH (14:00)
== END 2016-09-14 13:51 | disposition home or self-care (01) | DRG 292 ==
LOC: C.ER 06:43 → C.9E 08:44 → C.9I 11:27 → C.5T 09-09 18:47
PROVIDERS: ADMIT Internal Medicine Pulmonary Disease; ATTEND Internal Medicine Pulmonary Disease
PROC: 5A09457 Assistance with Respiratory Ventilation, 24-96 Consecutive Hours, Continuous Positive Airway Pressure (ICD-10-PCS; principal; 2016-09-05)
DX: I11.0 Hypertensive heart disease with heart failure (principal); R64 Cachexia; I27.2 Other secondary pulmonary hypertension; F03.90 Unspecified dementia, unspecified severity, without behavioral disturbance, psychotic disturbance, mood disturbance, and anxiety; I07.1 Rheumatic tricuspid insufficiency; J44.9 Chronic obstructive pulmonary disease, unspecified; Z68.1 Body mass index [BMI] 19.9 or less, adult; I50.33 Acute on chronic diastolic (congestive) heart failure; R09.02 Hypoxemia; D72.829 Elevated white blood cell count, unspecified; E11.9 Type 2 diabetes mellitus without complications; E78.00 Pure hypercholesterolemia, unspecified; F41.9 Anxiety disorder, unspecified; I25.10 Atherosclerotic heart disease of native coronary artery without angina pectoris; I25.2 Old myocardial infarction; I45.10 Unspecified right bundle-branch block; I48.91 Unspecified atrial fibrillation; I49.1 Atrial premature depolarization; M06.9 Rheumatoid arthritis, unspecified; M81.0 Age-related osteoporosis without current pathological fracture; Z66 Do not resuscitate; Z79.02 Long term (current) use of antithrombotics/antiplatelets; Z79.82 Long term (current) use of aspirin; Z85.118 Personal history of other malignant neoplasm of bronchus and lung; Z87.01 Personal history of pneumonia (recurrent); Z87.891 Personal history of nicotine dependence; Z90.49 Acquired absence of other specified parts of digestive tract; Z91.81 History of falling; Z95.5 Presence of coronary angioplasty implant and graft; Z95.810 Presence of automatic (implantable) cardiac defibrillator

== ENCOUNTER 2016-09-14 17:57 | Inpatient (IN) | payer MEDICARE, MEDICAID ==
[2016-09-14 18:16] VITALS: BMI 16.2
[2016-09-14 18:25] LABS: ABG ALLEN TEST POS; ARTERIAL BLOOD HGB O2 SAT 97.1 % (95.0-98.0); DRAW SITE LB; HHB -0.2 % (0.0-5.0); METHEMOGLOBIN 1.1 % (0.0-3.0)
--- NOTE | 2016-09-14 18:50 | RAD ---
HISTORY: SOB COMPARISON: Chest x-ray performed 09/12/16 TECHNIQUE: Chest, one view. FINDINGS: LUNGS: Pacer pack obscures evaluation of the left mid lung zone. Patchy left mid to lower lobe opacity may reflect pneumonia/ atelectasis and/or pleural effusion. Biapical pleural thickening. No definite pneumothorax. Hyperinflation may be seen in the setting of COPD. Increased lucencies especially within the bilateral upper lung juarez compatible with underlying emphysema. Please note that chest x-ray has limited sensitivity for the detection of pulmonary masses. CARDIOVASCULAR: Single lead left-sided AICD. Cardiomegaly. OSSEOUS STRUCTURES: Osseous demineralization. Degenerative changes. VISUALIZED UPPER ABDOMEN: Unremarkable. OTHER FINDINGS: None. IMPRESSION: Single lead left-sided AICD. Cardiomegaly.Pacer pack obscures evaluation of the left mid lung zone. Patchy left mid to lower lobe opacity may reflect pneumonia/ atelectasis and/or pleural effusion. Biapical pleural thickening. COPD/emphysema.
--- NOTE | 2016-09-14 19:39 | C.PDOC ---
History Of Present Illness Patient is a 81 y/o female, with history of COPD, that presents to the ED for evaluation of shortness of breath. Patient was discharged home today after being admitted for COPD exacerbation. However, daughter states, patient did not obtain her nebulizer equipment at home, and had to return to ER for increased shortness of breath, and difficulty breathing. Patient was given Lasix and Zofran by EMS, and was placed on CPAP. Otherwise, denies any cough, sputum, chest pain, palpitations, lightheadedness, or any other associated symptoms at this time. Time Seen by Provider: 09/14/16 18:09 Chief Complaint (Nursing): Shortness Of Breath History Per: Patient History/Exam Limitations: no limitations Onset/Duration Of Symptoms: Days Current Symptoms Are (Timing): Still Present Severity: None Pain Scale Rating Of: 0 Associated Symptoms: denies: Fever, Chills, Sweating, Chest Pain, Bloody Cough, Productive Cough, Heart Racing, Leg/Calf Pain, Ankle/Leg Swelling, Dizziness, Light-headedness, Anxiety, Tingling In Hands Or Face, Musle Spasms In Hands Or Feet Reports Recently: Treated By A Physician Recent travel outside of the [place] States: No Additional History Per: Patient Past Medical History Reviewed: Historical Data, Nursing Documentation, Vital Signs Vital Signs: Last Vital Signs Temp 96.8 F L 09/14/16 18:33 Pulse 89 09/14/16 19:15 Resp 40 H 09/14/16 19:15 BP 128/79 09/14/16 19:15 Pulse Ox 100 09/14/16 19:50 - Medical History PMH: Anxiety, Arthritis, Asthma, Atrial Fibrillation, CAD, CHF, COPD, Dementia, Diabetes, Gall Bladder Disease, HTN, Hypercholesterolemia, Migraine, Osteoporosis, Pneumonia (08/2015), Rheumatoid Arthritis Denies: Anemia, Bipolar Disorder, Depression, HIV, Hyperthyroidism, Hypothyroidism, Kidney Stones, Post Traumatic Stress Disorder, Chronic Kidney Disease, Schizophrenia, Sickle Cell Disease, Sexually Transmitted Disease Surgical History: Appendectomy, Cholecystectomy, Coronary Stent (proximal RCA stent), Pacemaker - [facility] Procedures ASSISTANCE WITH RESPIRATORY VENTILATION, <24 HRS, CPAP (08/22/16) ASSISTANCE WITH RESPIRATORY VENTILATION, >96 HRS, CPAP (07/04/16) CONTINUOUS INVASIVE MECHANICAL VENTILATION <96 CONSEC HRS (08/07/12) DILATION OF 1 COR ART WITH DRUG-ELUT INTRA, PERC APPROACH (12/29/15) FLUOROSCOPY OF LEFT HEART USING LOW OSMOLAR CONTRAST (08/02/16) FLUOROSCOPY OF MULT COR ART USING L OSM CONTRAST (08/02/16) INJECT/INFUSE NEC (02/11/14) INSERT INFUSION DEV IN R INT JUGULAR VEIN, PERC (08/02/16) INSERTION OF ENDOTRACHEAL AIRWAY INTO TRACHEA, VIA OPENING (08/02/16) INSPECTION OF LARYNX, ENDO (08/02/16) INTRODUCTION OF NUTRITIONAL INTO UP GI, VIA OPENING (08/02/16) LAPAROSCOPIC CHOLECYSTECTOMY (08/07/12) MEASURE OF CARDIAC SAMPL & PRESSURE, L HEART, PERC APPROACH (08/02/16) NEBULIZER THERAPY (09/10/13) OXYGEN ENRICHMENT NEC (08/07/12) RESPIRATORY VENTILATION, 24-96 CONSECUTIVE HOURS (08/02/16) RESPIRATORY VENTILATION, LESS THAN 24 CONSECUTIVE HOURS (06/19/16) JAIN OF CARDIAC RHYTHM, SINGLE (08/02/16) VITAL CAPACITY DETERMIN (08/07/12) Family History: States: Unknown Family Hx - Social History Hx Tobacco Use: No Hx Alcohol Use: No Hx Substance Use: No - Immunization History Hx Tetanus Toxoid Vaccination: No Hx Influenza Vaccination: No Hx Pneumococcal Vaccination: No Review Of Systems Except As Marked, All Systems Reviewed And Found Negative. Constitutional: Negative for: Fever, Chills Cardiovascular: Negative for: Chest Pain, Palpitations, Light Headedness Respiratory: Positive for: Shortness of Breath. Negative for: Cough, Hemoptysis , Sputum Gastrointestinal: Negative for: Nausea, Vomiting Neurological: Negative for: Weakness, Numbness, Headache, Dizziness Physical Exam - Physical Exam Appears: Non-toxic, No Acute Distress Skin: Normal Color, Warm, Dry Head: Atraumatic, Normacephalic Eye(s): bilateral: Normal Inspection Neck: Normal ROM, Supple Chest: Symmetrical Cardiovascular: Rhythm Regular, No Murmur Respiratory: Rales (coarse rales to left side; fine rales to right side), Rhonchi (coarse rhnochi to left side), No Wheezing, Other Gastrointestinal/Abdominal: Soft, No Tenderness Extremity: Normal ROM Neurological/Psych: Oriented x3, Normal Speech, Normal Cognition ED Course And Treatment - Laboratory Results Lab Interpretation: Abnormal Interpretation Of Abnormal: pO2 189, pCO2 23 on BIPAP 12/5 ECG: Interpreted By Me ECG Rhythm: R BBB (with left axis. inferior infarct and anteroseptal infarct) ECG Interpretation: No Changes From Prior O2 Sat by Pulse Oximetry: 100 (on RA) Pulse Ox Interpretation: Normal - Radiology CXR: Viewed By Me, Read By Radiologist CXR Interpretation: Yes: Infiltrates (LLL), Cardiomegaly Progress Note: Blood work, EKG, CXR ordered and reviewed. Patient was placed on BIPAP. Reevaluation Time: 20:06 Reassessment Condition: Improved (on BIPAP) - Physician Consult Information Physician Contacted: Gisselle Beck Outcome Of Conversation: Patient well known to him. Will readmit for shortness of breath and possible pneumonia. Plans to arrange detention transfer to be made. Disposition - Disposition Disposition: HOSPITALIZED Disposition Time: 20:08 Condition: IMPROVED - POA Present On Arrival: None - Clinical Impression Clinical Impression: Chr obstructive pulmonary disease w/ acute lower respiratory infxn - Scribe Statement The provider has reviewed the documentation as recorded by the Scribronal Loza All medical record entries made by the Joviibronal were at my direction and personally dictated by me. I have reviewed the chart and agree that the record accurately reflects my personal performance of the history, physical exam, medical decision making, and the department course for this patient. I have also personally directed, reviewed, and agree with the discharge instructions and disposition.
[2016-09-14] MEDS ORDERED: Bisacodyl 5mg EC Tab PO PRN (20:42)
[2016-09-15 07:40] LABS: BASO # 0.1 K/uL (0.0-0.2); BASO % 1.4 % (0.0-2.0); EOS # 0.1 K/uL (0.0-0.7); EOS % 0.9 % (0.0-4.0); HEMATOCRIT 27.4 % (34.0-47.0); LYMPH # 1.7 K/uL (1.0-4.3); LYMPH % 19.3 % (20.0-40.0); MEAN CELL VOLUME 71.7 fL (81.0-99.0); MEAN CORPUSCULAR HEMOGLOBIN 22.7 pg (27.0-31.0); MEAN CORPUSCULAR HGB CONC 31.7 g/dL (33.0-37.0); MEAN PLATELET VOLUME 9.6 fL (7.2-11.7); MONO # 1.1 K/uL (0.0-0.8); NRBC % 0.4 % (0.0-2.0); RED CELL DISTRIBUTION WIDTH 18.4 % (11.5-14.5); WHITE BLOOD COUNT 8.9 K/uL (4.8-10.8)
--- NOTE | 2016-09-15 07:40 | CP.PCM.PN ---
Subjective - Date & Time of Evaluation Date of Evaluation: 09/15/16 Time of Evaluation: 09:00 - Subjective Subjective: Medicine Note- Dr Beck's service Patient is a 81 year old female with PMHx of Afib, HTN, DM, COPD, systolic CHF, RA, and anxiety who returned to the ED last night after being discharged home to her daughter's house earlier that day. Patient seen and examined this morning in room 352A. Per patient she felt short of breath and had difficulty breathing after discharge yesterday because she did not have any oxygen at home. Patient states that she needs nasal cannula oxygen and that her daughter is not home during the day to help take care of her. Patient is complaining of dry cough and generalized body aches. She denies chest pain or shortness of breath at this time. Denies palpitations, abdominal pain, and headache. PMHx: Afib, HTN, DM, COPD, systolic CHF, RA, anxiety Home meds: Amiodarone 200mg once a day Aspirin 325mg once a day Coreg 6.25mg twice a day Plavix 75mg once a day Pepcid 20mg once a day Feosol 325mg twice a day Simvastatin 20mg once at night Lasix 40mg twice a day Ativan 1mg PO BID Surgical Hx: ICD placed 08/16/16; Cholecystectomy; Coronary stent (proximal RCA) placed in June 2016 Allergies: moxifloxacin Objective - Vital Signs/Intake and Output Vital Signs (last 24 hours): Temp Pulse Resp BP Pulse Ox 97.7 F 75 20 109/68 100 09/15/16 00:15 09/15/16 01:04 09/15/16 01:04 09/15/16 00:15 09/15/16 00:15 Intake and Output: 09/15/16 09/15/16 06:59 18:59 Intake Total 180 Balance 180 - Medications Medications: Current Medications Acetaminophen (Tylenol 325mg Tab) 650 mg PO Q6H PRN PRN Reason: Headache Last Admin: 09/14/16 20:51 Dose: 650 mg Alprazolam (Xanax) 1 mg PO Q12H PRN PRN Reason: Anxiety Amiodarone HCl (Cordarone) 200 mg PO DAILY BLAKE Aspirin (Aspirin) 325 mg PO DAILY BLAKE Benzonatate (Tessalon Perles) 100 mg PO TID PRN PRN Reason: cough Bisacodyl (Dulcolax) 5 mg PO DAILY PRN PRN Reason: constipation Carvedilol (Coreg) 6.25 mg PO BID BLAKE Clopidogrel Bisulfate (Plavix) 75 mg PO DAILY BLAKE Dronabinol (Marinol) 2.5 mg PO BID BLAKE Famotidine (Pepcid) 20 mg PO DAILY BLAKE Ferrous Sulfate (Feosol) 325 mg PO BID BLAKE Furosemide (Lasix) 40 mg IVP BID BLAKE Home Med (Simvastatin [Simvastatin]) 20 mg PO DAILY BLAKE Lorazepam (Ativan) 1 mg PO Q12H PRN PRN Reason: Anxiety Pneumococcal Polyvalent Vaccine (Pneumovax 23 Vaccine) 0.5 ml IM .ONCE ONE Stop: 09/16/16 10:01 - Constitutional Appears: No Acute Distress, Cachectic, Chronically Ill - Head Exam Head Exam: ATRAUMATIC, NORMOCEPHALIC - Eye Exam Eye Exam: EOMI, Normal appearance - ENT Exam ENT Exam: Mucous Membranes Moist - Respiratory Exam Respiratory Exam: Wheezes (mild expiratory wheezes left lower lobe ), NORMAL BREATHING PATTERN. absent: Accessory Muscle Use, Prolonged Expiratory Phase, Rales, Respiratory Distress Additional comments: patient speaking in full sentences without difficulty - Cardiovascular Exam Cardiovascular Exam: REGULAR RHYTHM, +S1, +S2 - GI/Abdominal Exam GI & Abdominal Exam: Soft, Normal Bowel Sounds. absent: Distended, Firm, Guarding, Rigid, Tenderness - Extremities Exam Extremities Exam: Normal Inspection. absent: Pedal Edema - Neurological Exam Neurological Exam: Alert, Awake, Oriented x3 - Psychiatric Exam Psychiatric exam: Anxious, Normal Affect - Skin Skin Exam: Dry, Normal Color, Warm Assessment and Plan - Assessment and Plan (Free Text) Assessment: 1) Acute Exacerbation of Systolic Congestive Heart Failure - Systolic dysfunction. BNP 8000 (elevated from previous admission BNP 5610) - s/p ICD placement by Dr. Gustafson 08/16 - Dr Cunningham and Dr Gustafson consulted on previous admission - ECHO (08/02/16)- Read as: 35% EF, suboptimal study. Moderate MR, moderate pulmonary HTN. - NM Muga scan/ for assessment of EF: Calculated EF of 32% - CXR 09/14: Single lead left-sided AICD. Cardiomegaly.Pacer pack obscures evaluation of the left mid lung zone. Patchy left mid to lower lobe opacity may reflect pneumonia/ atelectasis and/or pleural effusion. - ASA 325mg PO daily - Plavix 75mg PO Daily - Lasix 40mg IV BID - Amiodarone 200mg PO daily 2) Elevated troponin - Denies chest pain, hemodynamically stable. History of CAD. Troponins trending downwards: 1.822 (on 09/12/16) -->1.440--> 1.12--> 0.425 (on 09/15/16) - Dr. Cunningham (intervention manager) was consulted on previous visit for elevated troponins on 09/12/16. Dr Cunningham discussed with patient doing a cardiac catheterization; however, the patient refused and wished only medical therapy. s/p PCI in LAD on 08/[address] Cunningham - Cardiac Cath (12/31/15): Severe 2-vessel CAD. Successful PCI at mid right coronary w. GARRY. Severe lt ventricular systolic dysfunction (see full report) - Patient was discharged on Plavix and aspirin last visit. According to daughter, patient has been non-complaint with medications at home. - 09/14 EKG - Sinus rhythm with wide QRS, Left axis deviation, RBBB, inferior infarct age undetermined, anteroseptal infarct age undetermined - Will continue medical management with Plavix 75mg PO daily, ASS 325mg PO daily , and therapeutic Lovenox 35mg SC q12h 3) Acute COPD Exacerbation - CXR 09/14: Single lead left-sided AICD. Cardiomegaly.Pacer pack obscures evaluation of the left mid lung zone. Patchy left mid to lower lobe opacity may reflect pneumonia/ atelectasis and/or pleural effusion. Biapical pleural thickening. COPD/emphysema. - Duonebs 3ml INH q6h BLKAE - Continue on BIPAP and nasal cannula - Evaluate for need for home O2 - ABG 7.52/ 23/ 189/ 22.6 4) HTN Currently normotensive - Lasix 40mg PO BID - Amiodarone 200mg PO daily 5) Anxiety - History of anxiety - Ativan 1 mg PO Q12H PRN 6) Rheumatoid Arthritis - Pt family reports Percocet use for pain at home - Morphine 1mg Q6H PRN for pain 7) DM - Sugars well controlled with diet - HgA1C 5.7 8) Prophylaxis - Pepcid 20mg PO daily - SCDs - ASA and Plavix - Therapeutic lovenox - PT/OT eval for deconditioning - Pension Adviser eval for decreased appetite - Pending discharge to [facility] once medically stable Management as per Dr. Beck.
[2016-09-15 08:05] LABS: CHLORIDE 95 mmol/L (98-107); POTASSIUM 3.8 mmol/L (3.6-5.2); SODIUM 135 mmol/L (132-148)
[2016-09-15 08:07] LABS: AST/SGOT 34 U/L (14-36); BILIRUBIN,TOTAL 1.2 mg/dL (0.2-1.3); CARBON DIOXIDE 24 mmol/L (22-30); GFR AFRICAN-AMERICAN > 60
[2016-09-15 08:08] LABS: ALB/GLOB RATIO 0.9 (1.0-2.1); ALKALINE PHOSPHATASE 109 U/L (38-126); ALT/SGPT 27 U/L (9-52); BLOOD UREA NITROGEN 27 mg/dL (7-17); CALCIUM 8.4 mg/dl (8.6-10.4); GLUCOSE,RANDOM 95 mg/dL (65-105); TOTAL PROTEIN 6.9 g/dL (6.3-8.3)
[2016-09-15] MEDS ORDERED: Home Med 1 UNIT (Simvastatin [Simvastatin] 20 MG) PO SCH (10:00)
[2016-09-15] MEDS ORDERED: Enoxaparin 30 mg Syringe SC SCH ×2 (10:00→11:05)
[2016-09-15] MEDS ORDERED: Enoxaparin 40 mg Syringe SC SCH (10:00)
[2016-09-15 11:35] LABS: BASO # 0.1 K/uL (0.0-0.2); BASO % 1.5 % (0.0-2.0); EOS # 0.1 K/uL (0.0-0.7); EOS % 0.8 % (0.0-4.0); HEMATOCRIT 27.7 % (34.0-47.0); LYMPH # 1.6 K/uL (1.0-4.3); LYMPH % 17.6 % (20.0-40.0); MEAN CELL VOLUME 71.7 fL (81.0-99.0); MEAN CORPUSCULAR HEMOGLOBIN 23.2 pg (27.0-31.0); MEAN CORPUSCULAR HGB CONC 32.4 g/dL (33.0-37.0); MEAN PLATELET VOLUME 9.5 fL (7.2-11.7); MONO # 0.9 K/uL (0.0-0.8); MONO % 9.8 % (0.0-10.0); NRBC % 0.6 % (0.0-2.0); RED CELL DISTRIBUTION WIDTH 18.3 % (11.5-14.5); WHITE BLOOD COUNT 8.9 K/uL (4.8-10.8)
[2016-09-15 11:52] LABS: CHLORIDE 93 mmol/L (98-107)
[2016-09-15 11:53] LABS: POTASSIUM 3.6 mmol/L (3.6-5.2); SODIUM 131 mmol/L (132-148)
[2016-09-15 11:55] LABS: ALB/GLOB RATIO 0.9 (1.0-2.1); BILIRUBIN,TOTAL 1.3 mg/dL (0.2-1.3); CARBON DIOXIDE 24 mmol/L (22-30); GFR AFRICAN-AMERICAN > 60; TOTAL PROTEIN 7.2 g/dL (6.3-8.3)
[2016-09-15 11:56] LABS: ALKALINE PHOSPHATASE 121 U/L (38-126); ALT/SGPT 29 U/L (9-52); AST/SGOT 33 U/L (14-36); BLOOD UREA NITROGEN 24 mg/dL (7-17); CALCIUM 8.4 mg/dl (8.6-10.4); GLUCOSE,RANDOM 103 mg/dL (65-105)
[2016-09-15 13:23] LABS: PROCALCITONIN SERUM 0.42 NG/ML (0.19-0.49)
[2016-09-15] MEDS: Albuterol-Ipratrop 3 mg / 0.5 (3 ml) UD INH SCH ×3 (13:31→20:47)
--- NOTE | 2016-09-15 14:39 | CARD ---
APPROVED REPORT EKG Measurement Heart [id number] <Conclusion> Wide QRS rhythm Left axis deviation Right bundle branch block Inferior infarct, age undetermined RBBB Abnormal ECG
[2016-09-15] MEDS: Enoxaparin 30 mg Syringe SC SCH (14:47)
[2016-09-15 21:29] LABS: LEGIONELLA AG URINE NEGATIVE (NEGATIVE)
[2016-09-16] MEDS ORDERED: Dextrose 50% SYRINGE Inj (50 ml) IV STA (01:25)
[2016-09-16] MEDS ORDERED: Dextrose 50% SYRINGE Inj (50 ml) ONE (01:32)
[2016-09-16 01:36] LABS: ARTERIAL BLOOD GAS MODE BiPAP; ARTERIAL BLOOD HGB O2 SAT 97.4 % (95.0-98.0); CARBOXYHEMOGLOBIN 2.1 % (0.5-1.5); DRAW SITE RB; HHB -0.3 % (0.0-5.0); METHEMOGLOBIN 0.7 % (0.0-3.0)
--- NOTE | 2016-09-16 01:38 | PCM.RRTMUL ---
[employer] Nurses Assessment - Ventilator Settings FIO2 (% Oxygen):: 30 - Vital Signs Blood Pressure:: 101/62 Pulse Rate:: 55 Respiratory Rate:: 22 Temperature:: 98.3 F I.Reason for [employer] - A) Acute Change in Patient: Subjective: [employer] called at 1:16 due to increased lethargy, cool clammy skin, diaphoresis, and low blood sugar at 52. Upon entering the room, the patient appeared extremely lethargic and disoriented. Her breathing was deep and labored, and she was fighting the bipap. Initial vitals are as recorded, and pulse ox could not be obtained on several digits. She responded well to D50 1 amp, with blood glucose rise from 52 to 147. She became slightly more alert. Several lines were attempted in order to provide fluids, however a reliable line could not be established. The ICU physician was notified and came to examine the patient, ultimately inserting a Right Femoral Line under sterile aseptic conditions. NS 0.9% 1L bolus was started. The following were ordered: EKG, NEO, CBC, CMP, Lactic Acid, ABG, CXR, Zosyn, and cultures (blood / sputum). Repeat ABC showed deteriorating Bicarb and pH status, and lactic acid resulted 13.7. 2amp of Bicarb were administered and a bicarb drip 2amps in D5W 1L was started at 100cc/ hr. The patient became more responsive with bicarb, and it was determined to transfer the patient to the ICU. Of note: Heart rate 47bpm s/p Coreg administration at 18:20 (first dose today). Prior to Coreg heart rate was in 80' s. Recommend holding Coreg. - A) Initial Vital Signs: Blood Pressure: 93/60 Pulse Rate: 47 Respiratory Rate: 26 Finger Stick Blood Glucose: 52 - B) Neurological Status (Select all that apply): Responsive, Confused, Lethargic - Constitutional Additional Comments: Appears: No Acute Distress, Cachectic, Chronically Ill - Head Exam Head Exam: ATRAUMATIC, NORMOCEPHALIC - Eye Exam Eye Exam: EOMI, Normal appearance - ENT Exam ENT Exam: Mucous Membranes Dry - Respiratory Exam Respiratory Exam: Wheezes (mild expiratory wheezes left lower lobe), Tachypnic. absent: Accessory Muscle Use, Prolonged Expiratory Phase, Rales, Respiratory Distress - Cardiovascular Exam Cardiovascular Exam: REGULAR RHYTHM, Bradycardic, +S1, +S2 - GI/Abdominal Exam GI & Abdominal Exam: Soft, Normal Bowel Sounds. absent: Distended, Firm, Guarding, Rigid, Tenderness - Extremities Exam Extremities Exam: Normal Inspection. absent: Pedal Edema - Neurological Exam Neurological Exam: Awake. absent: Alert, Oriented x3 (oriented to person/place , not time) -patient appears extremely lethargic - Psychiatric Exam Psychiatric exam: Anxious, Normal Affect - Skin Skin Exam: Dry, Normal Color, Warm Plan - A. End of [employer] Vital Signs: Blood Pressure: 113/63 Pulse Rate: 50 Respiratory Rate: 22 O2 Sat by Pulse Oximetry: 100 Finger Stick Blood Glucose: 147
[2016-09-16] MEDS: Albuterol-Ipratrop 3 mg / 0.5 (3 ml) UD INH SCH ×4 (01:50→21:04)
[2016-09-16] MEDS: Enoxaparin 30 mg Syringe SC SCH ×2 (02:30→11:24)
[2016-09-16] MEDS ORDERED: Sodium Chloride 0.9% 1,000 ML IV ONE (02:38)
[2016-09-16 03:06] LABS: BASO # 0.1 K/uL (0.0-0.2); BASO % 0.4 % (0.0-2.0); EOS % 0.3 % (0.0-4.0); HEMATOCRIT 27.4 % (34.0-47.0); LYMPH # 1.3 K/uL (1.0-4.3); LYMPH % 10.9 % (20.0-40.0); MEAN CELL VOLUME 75.6 fL (81.0-99.0); MEAN CORPUSCULAR HEMOGLOBIN 22.8 pg (27.0-31.0); MEAN CORPUSCULAR HGB CONC 30.2 g/dL (33.0-37.0); MONO # 0.8 K/uL (0.0-0.8); MONO % 7.2 % (0.0-10.0); NRBC % 2.1 % (0.0-2.0); RED CELL DISTRIBUTION WIDTH 18.1 % (11.5-14.5); WHITE BLOOD COUNT 11.6 K/uL (4.8-10.8)
[2016-09-16 03:06] LABS: ARTERIAL BLOOD GAS MODE BiPAP; ARTERIAL BLOOD HGB O2 SAT 96.1 % (95.0-98.0); CARBOXYHEMOGLOBIN 1.9 % (0.5-1.5); DRAW SITE RB; HHB 0.3 % (0.0-5.0); METHEMOGLOBIN 1.7 % (0.0-3.0)
[2016-09-16 03:19] LABS: BILIRUBIN,TOTAL 1.7 mg/dL (0.2-1.3); TOTAL PROTEIN 6.3 g/dL (6.3-8.3)
[2016-09-16 03:20] LABS: CALCIUM 7.9 mg/dl (8.6-10.4); MAGNESIUM 2.2 mg/dL (1.6-2.3); PHOSPHOROUS 7.8 mg/dL (2.5-4.5)
[2016-09-16] MEDS: Piperacillin/Tazobact 3.375 GM in Sodium Chloride 100 ML IVPB SCH ×3 (03:24→18:52)
[2016-09-16] MEDS ORDERED: Sodium Bicarbonate (8.4%) 50 Meq Syringe IVP ONE (03:24)
[2016-09-16] MEDS ORDERED: Sodium Bicarbonate 8.4% 100 MEQ in Dextrose 5% In Water 1,000 ML IV SCH (03:28)
[2016-09-16] MEDS ORDERED: Sodium Bicarbonate (8.4%) 50 Meq Syringe ONE (03:33)
[2016-09-16 03:37] LABS: POTASSIUM 6.3 mmol/L (3.6-5.2)
[2016-09-16] MEDS ORDERED: Sodium Bicarbonate (8.4%) 50 Meq Syringe IVP STA (03:42)
--- NOTE | 2016-09-16 04:47 | CP.CCUPN ---
CCU Subjective - Physician Review Events Since Last Encounter (Free Text): 09/16/16 04:44 81 female with history of asthma/COPD, CAD, CHF, A Fib, HTN, DM, dementia, rheumatoid arthritis,hypercholestrolemia developed hypoglycemia and metabolic acidosis on the floor, patient lethargic, no fever, events reviewed 09/16/16 04:55 CCU Objective - Vital Signs / Intake & Output Vital Signs (Last 4 hours): Vital Signs Temp Pulse Resp BP 09/16/16 04:15 98.3 F 50 L 22 113/63 09/16/16 01:51 60 Intake and Output (Last 8hrs): Intake & Output 09/15/16 09/15/16 09/16/16 14:59 22:59 06:59 Intake Total 120 300 Balance 120 300 Intake: Oral 120 300 Other: # Voids Urine, Voided 1 2 # Bowel Movements 0 1 - Physical Exam Head: Positive for: Atraumatic, Normocephalic Pupils: Positive for: PERRL Ears: Positive for: Normal Mouth: Positive for: Moist Mucous Membranes Pharnyx: Positive for: Normal Neck: Positive for: Normal Range of Motion Respiratory/Chest: Positive for: Rhonchi Cardiovascular: Positive for: Irregular Rhythm Abdomen: Positive for: Normal Bowel Sounds Upper Extremity: Positive for: Normal Inspection Lower Extremity: Positive for: Normal Inspection Neurological: Positive for: Other (lethergic) - Medications Active Medications: Active Medications Generic Name Dose Route Start Last Admin Trade Name Freq PRN Reason Stop Dose Admin Acetaminophen 650 mg 09/15/16 15:15 Tylenol 325mg Tab PO Q6H PRN Headache Albuterol/Ipratropium 3 ml 09/15/16 08:00 09/16/16 01:50 Duoneb 3 Mg/0.5 Mg (3 Ml) Ud INH Not Given RQ6 BLAKE Amiodarone HCl 200 mg 09/15/16 10:59 Cordarone PO DAILY BLAKE Aspirin 325 mg 09/15/16 10:00 09/15/16 10:59 Aspirin PO 325 mg DAILY BLAKE Administration Benzonatate 100 mg 09/14/16 20:42 Tessalon Perles PO TID PRN cough Bisacodyl 5 mg 09/14/16 20:42 09/15/16 18:19 Dulcolax PO 5 mg DAILY PRN Administration constipation Carvedilol 6.25 mg 09/15/16 18:00 09/15/16 18:19 Coreg PO 6.25 mg BID BLAKE Administration Clopidogrel Bisulfate 75 mg 09/15/16 10:00 09/15/16 10:59 Plavix PO 75 mg DAILY BLAKE Administration Dextrose 50 ml 09/16/16 01:25 Dextrose 50% Inj IV 09/16/16 01:26 STAT STA Dronabinol 2.5 mg 09/15/16 18:00 09/15/16 18:19 Marinol PO 2.5 mg BID BLAKE Administration Enoxaparin Sodium 30 mg 09/15/16 14:30 09/15/16 14:47 Lovenox SC 30 mg Q12H BLAKE Administration Famotidine 20 mg 09/15/16 10:00 09/15/16 10:59 Pepcid PO 20 mg DAILY BLAKE Administration Ferrous Sulfate 325 mg 09/15/16 10:00 09/15/16 18:19 Feosol PO 325 mg BID BLAKE Administration Furosemide 40 mg 09/15/16 14:15 09/15/16 14:47 Lasix PO Not Given DAILY BLAKE Piperacillin Sod/Tazobactam 100 mls @ 200 mls/hr 09/16/16 02:15 09/16/16 03: 24 Sod 3.375 gm/ Sodium Chloride IVPB 200 mls/hr Q8H BLAKE Administration Sodium Bicarbonate 100 meq/ 1,100 mls @ 100 mls/hr 09/16/16 03:28 09/16/16 03 :49 Dextrose IV 100 mls/hr .Q11H BLAKE Administration Lorazepam 1 mg 09/15/16 14:00 09/15/16 22:07 Ativan PO 1 mg Q12 BLAKE Administration Oxycodone/Acetaminophen 1 tab 09/15/16 13:52 Percocet 5/325 Mg Tab PO 09/18/16 13:53 Q6H PRN Pain, moderate (4-7) Pneumococcal Polyvalent Vaccine 0.5 ml 09/16/16 10:00 Pneumovax 23 Vaccine IM 09/16/16 10:01 .ONCE ONE Rosuvastatin Calcium 5 mg 09/15/16 22:00 09/15/16 22:07 Crestor PO 5 mg HS BLAKE Administration - Patient Studies Lab Studies: Lab Studies 09/16/16 09/16/16 09/16/16 Range/Units 03:03 03:03 03:03 WBC 11.6 H (4.8-10.8) K/uL RBC 3.62 L (3.80-5.20) Mil/uL Hgb 8.3 L (11.0-16.0) g/dL Hct 27.4 L (34.0-47.0) % MCV 75.6 L D (81.0-99.0) fL MCH 22.8 L (27.0-31.0) pg MCHC 30.2 L (33.0-37.0) g/dL RDW 18.1 H (11.5-14.5) % Plt Count 297 (130-400) K/uL MPV 10.0 (7.2-11.7) fL Neut % (Auto) 81.2 H (50.0-75.0) % Lymph % (Auto) 10.9 L (20.0-40.0) % [place] % (Auto) 7.2 (0.0-10.0) % Eos % (Auto) 0.3 (0.0-4.0) % Baso % (Auto) 0.4 (0.0-2.0) % Neut # 9.4 H (1.8-7.0) K/uL Lymph # 1.3 (1.0-4.3) K/uL [place] # 0.8 (0.0-0.8) K/uL Eos # 0.0 (0.0-0.7) K/uL Baso # 0.1 (0.0-0.2) K/uL Puncture Site pCO2 (35-45) mm/Hg pO2 (80-100) mm/Hg HCO3 (21-28) mmol/L ABG pH (7.35-7.45) ABG Total CO2 (22-28) mmol/L ABG O2 Saturation (95-98) % ABG Base Excess (-2.0-3.0) mmol/L ABG Hemoglobin (11.7-17.4) g/dL ABG Carboxyhemoglobin (0.5-1.5) % POC ABG HHb (Measured) (0.0-5.0) % ABG Methemoglobin (0.0-3.0) % Gael Test A-a O2 Difference mm/Hg Respiratory Index Hgb O2 Saturation (95.0-98.0) % Vent Mode FiO2 % Inspiratory BiPAP Expiratory BiPAP Crit Value Called To Crit Value Called By Crit Value Read Back Blood Gas Notified Time Sodium 127 L (132-148) mmol/L Potassium 6.3 H* D (3.6-5.2) mmol/L Chloride 90 L (98-107) mmol/L Carbon Dioxide 11 L* D (22-30) mmol/L Anion Gap 32 H (10-20) BUN 34 H (7-17) mg/dL Creatinine 2.1 H (0.7-1.2) MG/DL Est GFR ( Amer) 27 Est GFR (Non-Af Amer) 23 POC Glucose (mg/dL) (65-110) mg/dL Random Glucose 314 H (65-105) mg/dL Lactic Acid 13.7 H* (0.7-2.1) mmol/L Calcium 7.9 L (8.6-10.4) mg/dl Phosphorus 7.8 H (2.5-4.5) mg/dL Magnesium 2.2 (1.6-2.3) mg/dL Total Bilirubin 1.7 H (0.2-1.3) mg/dL AST 171 H D (14-36) U/L ALT 94 H D (9-52) U/L Alkaline Phosphatase 130 H (38-126) U/L Total Creatine Kinase 21 L (30-135) U/L CK-MB (Mass) 0.88 (0.0-3.38) ng/mL Troponin I (0.00-0.120) ng/mL Troponin I, Quant 0.4490 H* (0.00-0.120) ng/mL NT-Pro-B Natriuret Pep (0-900) pg/mL Total Protein 6.3 (6.3-8.3) g/dL Albumin 3.1 L (3.5-5.0) g/dL Globulin 3.2 (2.2-3.9) gm/dL Albumin/Globulin Ratio 1.0 (1.0-2.1) Procalcitonin (0.19-0.49) NG/ML Ur L.pneumophila Ag (NEGATIVE) Mycoplasma pneumon IgM (NEGATIVE) 09/16/16 09/16/1617 Range/Units 03:00 02:54 02:08 WBC (4.8-10.8) K/uL RBC (3.80-5.20) Mil/uL Hgb (11.0-16.0) g/dL Hct (34.0-47.0) % MCV (81.0-99.0) fL MCH (27.0-31.0) pg MCHC (33.0-37.0) g/dL RDW (11.5-14.5) % Plt Count (130-400) K/uL MPV (7.2-11.7) fL Neut % (Auto) (50.0-75.0) % Lymph % (Auto) (20.0-40.0) % [place] % (Auto) (0.0-10.0) % Eos % (Auto) (0.0-4.0) % Baso % (Auto) (0.0-2.0) % Neut # (1.8-7.0) K/uL Lymph # (1.0-4.3) K/uL [place] # (0.0-0.8) K/uL Eos # (0.0-0.7) K/uL Baso # (0.0-0.2) K/uL Puncture Site Rb pCO2 14 L* (35-45) mm/Hg pO2 131 H (80-100) mm/Hg HCO3 8.4 L* (21-28) mmol/L ABG pH 7.18 L* (7.35-7.45) ABG Total CO2 5.6 L (22-28) mmol/L ABG O2 Saturation 99.7 H (95-98) % ABG Base Excess -21.2 L (-2.0-3.0) mmol/L ABG Hemoglobin 7.4 L (11.7-17.4) g/dL ABG Carboxyhemoglobin 1.9 H (0.5-1.5) % POC ABG HHb (Measured) 0.3 (0.0-5.0) % ABG Methemoglobin 1.7 (0.0-3.0) % Gael Test Na A-a O2 Difference 137.0 mm/Hg Respiratory Index 1.0 Hgb O2 Saturation 96.1 (95.0-98.0) % Vent Mode Bipap FiO2 40.0 % Inspiratory BiPAP 10 Expiratory BiPAP 5 Crit Value Called To Dr grove/ Crit Value Called By Lul thompson/rt Crit Value Read Back Y Blood Gas Notified Time 310 Sodium (132-148) mmol/L Potassium (3.6-5.2) mmol/L Chloride (98-107) mmol/L Carbon Dioxide (22-30) mmol/L Anion Gap (10-20) BUN (7-17) mg/dL Creatinine (0.7-1.2) MG/DL Est GFR ( Amer) Est GFR (Non-Af Amer) POC Glucose (mg/dL) 147 H 55 L (65-110) mg/dL Random Glucose (65-105) mg/dL Lactic Acid (0.7-2.1) mmol/L Calcium (8.6-10.4) mg/dl Phosphorus (2.5-4.5) mg/dL Magnesium (1.6-2.3) mg/dL Total Bilirubin (0.2-1.3) mg/dL AST (14-36) U/L ALT (9-52) U/L Alkaline Phosphatase (38-126) U/L Total Creatine Kinase (30-135) U/L CK-MB (Mass) (0.0-3.38) ng/mL Troponin I (0.00-0.120) ng/mL Troponin I, Quant (0.00-0.120) ng/mL NT-Pro-B Natriuret Pep (0-900) pg/mL Total Protein (6.3-8.3) g/dL Albumin (3.5-5.0) g/dL Globulin (2.2-3.9) gm/dL Albumin/Globulin Ratio (1.0-2.1) Procalcitonin (0.19-0.49) NG/ML Ur L.pneumophila Ag (NEGATIVE) Mycoplasma pneumon IgM (NEGATIVE) 09/16/16 09/16/16 09/16/16 Range/Units 01:30 01:23 01:10 WBC (4.8-10.8) K/uL RBC (3.80-5.20) Mil/uL Hgb (11.0-16.0) g/dL Hct (34.0-47.0) % MCV (81.0-99.0) fL MCH (27.0-31.0) pg MCHC (33.0-37.0) g/dL RDW (11.5-14.5) % Plt Count (130-400) K/uL MPV (7.2-11.7) fL Neut % (Auto) (50.0-75.0) % Lymph % (Auto) (20.0-40.0) % [place] % (Auto) (0.0-10.0) % Eos % (Auto) (0.0-4.0) % Baso % (Auto) (0.0-2.0) % Neut # (1.8-7.0) K/uL Lymph # (1.0-4.3) K/uL [place] # (0.0-0.8) K/uL Eos # (0.0-0.7) K/uL Baso # (0.0-0.2) K/uL Puncture Site Rb pCO2 18 L* (35-45) mm/Hg pO2 140 H (80-100) mm/Hg HCO3 10.3 L (21-28) mmol/L ABG pH 7.21 L (7.35-7.45) ABG Total CO2 7.8 L (22-28) mmol/L ABG O2 Saturation 100.3 H (95-98) % ABG Base Excess -18.8 L (-2.0-3.0) mmol/L ABG Hemoglobin 9.7 L (11.7-17.4) g/dL ABG Carboxyhemoglobin 2.1 H (0.5-1.5) % POC ABG HHb (Measured) -0.3 L (0.0-5.0) % ABG Methemoglobin 0.7 (0.0-3.0) % Gael Test Na A-a O2 Difference 123.0 mm/Hg Respiratory Index 0.9 Hgb O2 Saturation 97.4 (95.0-98.0) % Vent Mode Bipap FiO2 40.0 % Inspiratory BiPAP 10 Expiratory BiPAP 5 Crit Value Called To Dr grove/ Crit Value Called By Lul thompson/rt Crit Value Read Back Y Blood Gas Notified Time 140 Sodium (132-148) mmol/L Potassium (3.6-5.2) mmol/L Chloride (98-107) mmol/L Carbon Dioxide (22-30) mmol/L Anion Gap (10-20) BUN (7-17) mg/dL Creatinine (0.7-1.2) MG/DL Est GFR ( Amer) Est GFR (Non-Af Amer) POC Glucose (mg/dL) 64 L 54 L (65-110) mg/dL Random Glucose (65-105) mg/dL Lactic Acid (0.7-2.1) mmol/L Calcium (8.6-10.4) mg/dl Phosphorus (2.5-4.5) mg/dL Magnesium (1.6-2.3) mg/dL Total Bilirubin (0.2-1.3) mg/dL AST (14-36) U/L ALT (9-52) U/L Alkaline Phosphatase (38-126) U/L Total Creatine Kinase (30-135) U/L CK-MB (Mass) (0.0-3.38) ng/mL Troponin I (0.00-0.120) ng/mL Troponin I, Quant (0.00-0.120) ng/mL NT-Pro-B Natriuret Pep (0-900) pg/mL Total Protein (6.3-8.3) g/dL Albumin (3.5-5.0) g/dL Globulin (2.2-3.9) gm/dL Albumin/Globulin Ratio (1.0-2.1) Procalcitonin (0.19-0.49) NG/ML Ur L.pneumophila Ag (NEGATIVE) Mycoplasma pneumon IgM (NEGATIVE) 09/15/16 09/15/16 09/15/16 Range/Units 13:33 11:24 11:24 WBC (4.8-10.8) K/uL RBC (3.80-5.20) Mil/uL Hgb (11.0-16.0) g/dL Hct (34.0-47.0) % MCV (81.0-99.0) fL MCH (27.0-31.0) pg MCHC (33.0-37.0) g/dL RDW (11.5-14.5) % Plt Count (130-400) K/uL MPV (7.2-11.7) fL Neut % (Auto) (50.0-75.0) % Lymph % (Auto) (20.0-40.0) % [place] % (Auto) (0.0-10.0) % Eos % (Auto) (0.0-4.0) % Baso % (Auto) (0.0-2.0) % Neut # (1.8-7.0) K/uL Lymph # (1.0-4.3) K/uL [place] # (0.0-0.8) K/uL Eos # (0.0-0.7) K/uL Baso # (0.0-0.2) K/uL Puncture Site pCO2 (35-45) mm/Hg pO2 (80-100) mm/Hg HCO3 (21-28) mmol/L ABG pH (7.35-7.45) ABG Total CO2 (22-28) mmol/L ABG O2 Saturation (95-98) % ABG Base Excess (-2.0-3.0) mmol/L ABG Hemoglobin (11.7-17.4) g/dL ABG Carboxyhemoglobin (0.5-1.5) % POC ABG HHb (Measured) (0.0-5.0) % ABG Methemoglobin (0.0-3.0) % Gael Test A-a O2 Difference mm/Hg Respiratory Index Hgb O2 Saturation (95.0-98.0) % Vent Mode FiO2 % Inspiratory BiPAP Expiratory BiPAP Crit Value Called To Crit Value Called By Crit Value Read Back Blood Gas Notified Time Sodium 131 L (132-148) mmol/L Potassium 3.6 (3.6-5.2) mmol/L Chloride 93 L (98-107) mmol/L Carbon Dioxide 24 (22-30) mmol/L Anion Gap 18 (10-20) BUN 24 H (7-17) mg/dL Creatinine 0.9 (0.7-1.2) MG/DL Est GFR ( Amer) > 60 Est GFR (Non-Af Amer) 60 POC Glucose (mg/dL) 241 H (65-110) mg/dL Random Glucose 103 (65-105) mg/dL Lactic Acid (0.7-2.1) mmol/L Calcium 8.4 L (8.6-10.4) mg/dl Phosphorus (2.5-4.5) mg/dL Magnesium (1.6-2.3) mg/dL Total Bilirubin 1.3 (0.2-1.3) mg/dL AST 33 (14-36) U/L ALT 29 (9-52) U/L Alkaline Phosphatase 121 (38-126) U/L Total Creatine Kinase (30-135) U/L CK-MB (Mass) (0.0-3.38) ng/mL Troponin I (0.00-0.120) ng/mL Troponin I, Quant (0.00-0.120) ng/mL NT-Pro-B Natriuret Pep (0-900) pg/mL Total Protein 7.2 (6.3-8.3) g/dL Albumin 3.5 (3.5-5.0) g/dL Globulin 3.7 (2.2-3.9) gm/dL Albumin/Globulin Ratio 0.9 L (1.0-2.1) Procalcitonin 0.42 (0.19-0.49) NG/ML Ur L.pneumophila Ag Negative (NEGATIVE) Mycoplasma pneumon IgM Negative (NEGATIVE) 09/15/16 09/15/16 09/15/16 Range/Units 11:24 07:17 07:17 WBC 8.9 8.9 (4.8-10.8) K/uL RBC 3.86 3.82 (3.80-5.20) Mil/uL Hgb 9.0 L 8.7 L (11.0-16.0) g/dL Hct 27.7 L 27.4 L (34.0-47.0) % MCV 71.7 L 71.7 L (81.0-99.0) fL MCH 23.2 L 22.7 L (27.0-31.0) pg MCHC 32.4 L 31.7 L (33.0-37.0) g/dL RDW 18.3 H 18.4 H (11.5-14.5) % Plt Count 360 337 (130-400) K/uL MPV 9.5 9.6 (7.2-11.7) fL Neut % (Auto) 70.3 66.4 (50.0-75.0) % Lymph % (Auto) 17.6 L 19.3 L (20.0-40.0) % [place] % (Auto) 9.8 12.0 H (0.0-10.0) % Eos % (Auto) 0.8 0.9 (0.0-4.0) % Baso % (Auto) 1.5 1.4 (0.0-2.0) % Neut # 6.3 5.9 (1.8-7.0) K/uL Lymph # 1.6 1.7 (1.0-4.3) K/uL [place] # 0.9 H 1.1 H (0.0-0.8) K/uL Eos # 0.1 0.1 (0.0-0.7) K/uL Baso # 0.1 0.1 (0.0-0.2) K/uL Puncture Site pCO2 (35-45) mm/Hg pO2 (80-100) mm/Hg HCO3 (21-28) mmol/L ABG pH (7.35-7.45) ABG Total CO2 (22-28) mmol/L ABG O2 Saturation (95-98) % ABG Base Excess (-2.0-3.0) mmol/L ABG Hemoglobin (11.7-17.4) g/dL ABG Carboxyhemoglobin (0.5-1.5) % POC ABG HHb (Measured) (0.0-5.0) % ABG Methemoglobin (0.0-3.0) % Gael Test A-a O2 Difference mm/Hg Respiratory Index Hgb O2 Saturation (95.0-98.0) % Vent Mode FiO2 % Inspiratory BiPAP Expiratory BiPAP Crit Value Called To Crit Value Called By Crit Value Read Back Blood Gas Notified Time Sodium 135 (132-148) mmol/L Potassium 3.8 (3.6-5.2) mmol/L Chloride 95 L (98-107) mmol/L Carbon Dioxide 24 (22-30) mmol/L Anion Gap 20 (10-20) BUN 27 H (7-17) mg/dL Creatinine 0.9 (0.7-1.2) MG/DL Est GFR ( Amer) > 60 Est GFR (Non-Af Amer) 60 POC Glucose (mg/dL) (65-110) mg/dL Random Glucose 95 (65-105) mg/dL Lactic Acid (0.7-2.1) mmol/L Calcium 8.4 L (8.6-10.4) mg/dl Phosphorus (2.5-4.5) mg/dL Magnesium (1.6-2.3) mg/dL Total Bilirubin 1.2 (0.2-1.3) mg/dL AST 34 (14-36) U/L ALT 27 (9-52) U/L Alkaline Phosphatase 109 (38-126) U/L Total Creatine Kinase (30-135) U/L CK-MB (Mass) (0.0-3.38) ng/mL Troponin I 0.4250 H* (0.00-0.120) ng/mL Troponin I, Quant (0.00-0.120) ng/mL NT-Pro-B Natriuret Pep 8000 H (0-900) pg/mL Total Protein 6.9 (6.3-8.3) g/dL Albumin 3.4 L (3.5-5.0) g/dL Globulin 3.6 (2.2-3.9) gm/dL Albumin/Globulin Ratio 0.9 L (1.0-2.1) Procalcitonin (0.19-0.49) NG/ML Ur L.pneumophila Ag (NEGATIVE) Mycoplasma pneumon IgM (NEGATIVE) Laboratory Results - last 24 hr 09/15/16 09/15/1617 07:17 07:17 11:24 WBC 8.9 8.9 RBC 3.82 3.86 Hgb 8.7 L 9.0 L Hct 27.4 L 27.7 L MCV 71.7 L 71.7 L MCH 22.7 L 23.2 L MCHC 31.7 L 32.4 L RDW 18.4 H 18.3 H Plt Count 337 360 MPV 9.6 9.5 Neut % (Auto) 66.4 70.3 Lymph % (Auto) 19.3 L 17.6 L [place] % (Auto) 12.0 H 9.8 Eos % (Auto) 0.9 0.8 Baso % (Auto) 1.4 1.5 Neut # 5.9 6.3 Lymph # 1.7 1.6 [place] # 1.1 H 0.9 H Eos # 0.1 0.1 Baso # 0.1 0.1 Puncture Site pCO2 pO2 HCO3 ABG pH ABG Total CO2 ABG O2 Saturation ABG Base Excess ABG Hemoglobin ABG Carboxyhemoglobin POC ABG HHb (Measured) ABG Methemoglobin Gael Test A-a O2 Difference Respiratory Index Hgb O2 Saturation Vent Mode FiO2 Inspiratory BiPAP Expiratory BiPAP Crit Value Called To Crit Value Called By Crit Value Read Back Blood Gas Notified Time Sodium 135 Potassium 3.8 Chloride 95 L Carbon Dioxide 24 Anion Gap 20 BUN 27 H Creatinine 0.9 Est GFR ( Amer) > 60 Est GFR (Non-Af Amer) 60 POC Glucose (mg/dL) Random Glucose 95 Lactic Acid Calcium 8.4 L Phosphorus Magnesium Total Bilirubin 1.2 AST 34 ALT 27 Alkaline Phosphatase 109 Total Creatine Kinase CK-MB (Mass) Troponin I 0.4250 H* Troponin I, Quant NT-Pro-B Natriuret Pep 8000 H Total Protein 6.9 Albumin 3.4 L Globulin 3.6 Albumin/Globulin Ratio 0.9 L Procalcitonin Ur L.pneumophila Ag Mycoplasma pneumon IgM 09/15/16 09/15/16 09/15/16 11:24 11:24 13:33 WBC RBC Hgb Hct MCV MCH MCHC RDW Plt Count MPV Neut % (Auto) Lymph % (Auto) [place] % (Auto) Eos % (Auto) Baso % (Auto) Neut # Lymph # [place] # Eos # Baso # Puncture Site pCO2 pO2 HCO3 ABG pH ABG Total CO2 ABG O2 Saturation ABG Base Excess ABG Hemoglobin ABG Carboxyhemoglobin POC ABG HHb (Measured) ABG Methemoglobin Gael Test A-a O2 Difference Respiratory Index Hgb O2 Saturation Vent Mode FiO2 Inspiratory BiPAP Expiratory BiPAP Crit Value Called To Crit Value Called By Crit Value Read Back Blood Gas Notified Time Sodium 131 L Potassium 3.6 Chloride 93 L Carbon Dioxide 24 Anion Gap 18 BUN 24 H Creatinine 0.9 Est GFR ( Amer) > 60 Est GFR (Non-Af Amer) 60 POC Glucose (mg/dL) 241 H Random Glucose 103 Lactic Acid Calcium 8.4 L Phosphorus Magnesium Total Bilirubin 1.3 AST 33 ALT 29 Alkaline Phosphatase 121 Total Creatine Kinase CK-MB (Mass) Troponin I Troponin I, Quant NT-Pro-B Natriuret Pep Total Protein 7.2 Albumin 3.5 Globulin 3.7 Albumin/Globulin Ratio 0.9 L Procalcitonin 0.42 Ur L.pneumophila Ag Negative Mycoplasma pneumon IgM Negative 09/16/16 09/16/16 09/16/16 01:10 01:23 01:30 WBC RBC Hgb Hct MCV MCH MCHC RDW Plt Count MPV Neut % (Auto) Lymph % (Auto) [place] % (Auto) Eos % (Auto) Baso % (Auto) Neut # Lymph # [place] # Eos # Baso # Puncture Site Rb pCO2 18 L* pO2 140 H HCO3 10.3 L ABG pH 7.21 L ABG Total CO2 7.8 L ABG O2 Saturation 100.3 H ABG Base Excess -18.8 L ABG Hemoglobin 9.7 L ABG Carboxyhemoglobin 2.1 H POC ABG HHb (Measured) -0.3 L ABG Methemoglobin 0.7 Gael Test Na A-a O2 Difference 123.0 Respiratory Index 0.9 Hgb O2 Saturation 97.4 Vent Mode Bipap FiO2 40.0 Inspiratory BiPAP 10 Expiratory BiPAP 5 Crit Value Called To Dr grove/ Crit Value Called By Lul thompson/rt Crit Value Read Back Y Blood Gas Notified Time 140 Sodium Potassium Chloride Carbon Dioxide Anion Gap BUN Creatinine Est GFR ( Amer) Est GFR (Non-Af Amer) POC Glucose (mg/dL) 54 L 64 L Random Glucose Lactic Acid Calcium Phosphorus Magnesium Total Bilirubin AST ALT Alkaline Phosphatase Total Creatine Kinase CK-MB (Mass) Troponin I Troponin I, Quant NT-Pro-B Natriuret Pep Total Protein Albumin Globulin Albumin/Globulin Ratio Procalcitonin Ur L.pneumophila Ag Mycoplasma pneumon IgM 09/16/16 09/16/16 09/16/16 02:08 02:54 03:00 WBC RBC Hgb Hct MCV MCH MCHC RDW Plt Count MPV Neut % (Auto) Lymph % (Auto) [place] % (Auto) Eos % (Auto) Baso % (Auto) Neut # Lymph # [place] # Eos # Baso # Puncture Site Rb pCO2 14 L* pO2 131 H HCO3 8.4 L* ABG pH 7.18 L* ABG Total CO2 5.6 L ABG O2 Saturation 99.7 H ABG Base Excess -21.2 L ABG Hemoglobin 7.4 L ABG Carboxyhemoglobin 1.9 H POC ABG HHb (Measured) 0.3 ABG Methemoglobin 1.7 Gael Test Na A-a O2 Difference 137.0 Respiratory Index 1.0 Hgb O2 Saturation 96.1 Vent Mode Bipap FiO2 40.0 Inspiratory BiPAP 10 Expiratory BiPAP 5 Crit Value Called To Dr grove/ Crit Value Called By Lul thompson/rt Crit Value Read Back Y Blood Gas Notified Time 310 Sodium Potassium Chloride Carbon Dioxide Anion Gap BUN Creatinine Est GFR ( Amer) Est GFR (Non-Af Amer) POC Glucose (mg/dL) 55 L 147 H Random Glucose Lactic Acid Calcium Phosphorus Magnesium Total Bilirubin AST ALT Alkaline Phosphatase Total Creatine Kinase CK-MB (Mass) Troponin I Troponin I, Quant NT-Pro-B Natriuret Pep Total Protein Albumin Globulin Albumin/Globulin Ratio Procalcitonin Ur L.pneumophila Ag Mycoplasma pneumon IgM 09/16/16 09/16/16 09/16/16 03:03 03:03 03:03 WBC 11.6 H RBC 3.62 L Hgb 8.3 L Hct 27.4 L MCV 75.6 L D MCH 22.8 L MCHC 30.2 L RDW 18.1 H Plt Count 297 MPV 10.0 Neut % (Auto) 81.2 H Lymph % (Auto) 10.9 L [place] % (Auto) 7.2 Eos % (Auto) 0.3 Baso % (Auto) 0.4 Neut # 9.4 H Lymph # 1.3 [place] # 0.8 Eos # 0.0 Baso # 0.1 Puncture Site pCO2 pO2 HCO3 ABG pH ABG Total CO2 ABG O2 Saturation ABG Base Excess ABG Hemoglobin ABG Carboxyhemoglobin POC ABG HHb (Measured) ABG Methemoglobin Gael Test A-a O2 Difference Respiratory Index Hgb O2 Saturation Vent Mode FiO2 Inspiratory BiPAP Expiratory BiPAP Crit Value Called To Crit Value Called By Crit Value Read Back Blood Gas Notified Time Sodium 127 L Potassium 6.3 H* D Chloride 90 L Carbon Dioxide 11 L* D Anion Gap 32 H BUN 34 H Creatinine 2.1 H Est GFR ( Amer) 27 Est GFR (Non-Af Amer) 23 POC Glucose (mg/dL) Random Glucose 314 H Lactic Acid 13.7 H* Calcium 7.9 L Phosphorus 7.8 H Magnesium 2.2 Total Bilirubin 1.7 H AST 171 H D ALT 94 H D Alkaline Phosphatase 130 H Total Creatine Kinase 21 L CK-MB (Mass) 0.88 Troponin I Troponin I, Quant 0.4490 H* NT-Pro-B Natriuret Pep Total Protein 6.3 Albumin 3.1 L Globulin 3.2 Albumin/Globulin Ratio 1.0 Procalcitonin Ur L.pneumophila Ag Mycoplasma pneumon IgM EKG/Cardiology Studies: Cardiology / EKG Studies 09/16/16 01:31 ELECTROCARDIOGRAM Stat Comment: Mode Of Transportation: Reason For Exam: AMS, tachypnea Fingerstick Blood Sugar Results: 147 Review of Systems - Review of Systems Systems not reviewed;Unavailable: Altered Mental Status Critical Care Progress Note - Nutrition Nutrition: Nutrition Category Date Time Status Heart Healthy Diet [DIET] Diets 09/15/16 Breakfast Active Assessment/Plan - Assessment and Plan (Free Text) Assessment: A/P Respiratory insufficiency, metabolic acidosis, sepsis, ?pneumonia, asthma/COPD , h/o CHF, A Fib, DM, rheumatoid arthritis, h/o HTN, hypercholestrolemia, hypoglycemia, hyperkalemia R/O DE - BIPAP, intubation if worsen - [place] cultures - Antibiotics - IV fluid - Bicarbonate drip - Cardiac enzymes - Follow up electrolyte - Follow ABG - Check glucose level - Poor prognosis Critical care 40 min
[2016-09-16 06:11] LABS: ARTERIAL BLOOD GAS MODE BiPAP; DRAW SITE RB
[2016-09-16 06:42] LABS: BASO % 0.3 % (0.0-2.0); HEMATOCRIT 25.4 % (34.0-47.0); LYMPH # 0.9 K/uL (1.0-4.3); LYMPH % 6.8 % (20.0-40.0); MEAN CELL VOLUME 73.6 fL (81.0-99.0); MEAN CORPUSCULAR HEMOGLOBIN 22.7 pg (27.0-31.0); MEAN CORPUSCULAR HGB CONC 30.8 g/dL (33.0-37.0); MEAN PLATELET VOLUME 9.8 fL (7.2-11.7); MONO # 0.8 K/uL (0.0-0.8); MONO % 5.8 % (0.0-10.0); NRBC % 0.4 % (0.0-2.0); PLATELET COUNT 257 K/uL (130-400); RED CELL DISTRIBUTION WIDTH 18.2 % (11.5-14.5)
[2016-09-16 06:56] LABS: BILIRUBIN,TOTAL 1.7 mg/dL (0.2-1.3); CALCIUM 7.4 mg/dl (8.6-10.4); PHOSPHOROUS 5.7 mg/dL (2.5-4.5); POTASSIUM 3.8 mmol/L (3.6-5.2)
[2016-09-16 07:58] LABS: NEUTROPHIL 91 % (50-75); TOTAL CELLS COUNTED 100
[2016-09-16] MEDS ORDERED: Pneumococcal 23-Valent Vaccine IM ONE (10:00)
--- NOTE | 2016-09-16 11:09 | CP.PCM.CON ---
History of Present Illness - History of Present Illness History of Present Illness: palliative consult Requested by Caren COOPER Reason: Code status and goals of care discussion Patient is a 81 yo female with multiple admissions to this hospital for respiratory symptoms. This admission occurred on the same day of discharge home. As per patient's daughter juju, patient did not obtain her home nebulizer and short of breath once she arrived home. The EMS administered lasix and Zofran IV to the patient and placed her on BiPap on route to the hospital. Last night while on the floor, patient decompenzated and was transferred to ICU where was placed on CPap 40% O2. The CXR was significant for atelectatsis and emphysema and AICD was seen in place. Troponin positive X2, lactate and lactic acid elevated. Hb 7.3, Doctor Mikey called on consult. PMH: COPD, anxiety, depression, assistance with MV Soc. Hx: , lives at home with daughter Juju, Fam Hx: has two daughters both in good health, parents , denies known fam Hx Review of Systems - Review of Systems All systems: reviewed and no additional remarkable complaints except - Constitutional Constitutional: Weakness - EENT Eyes: absent: As Per HPI, Blind Spots, Blurred Vision, Change in Vision, Decreased Night Vision, Diplopia, Discharge, Dry Eye, Exophthalmos, Floaters, Irritation, Itchy Eyes, Loss of Peripheral Vision, Pain, Photophobia, Requires Corrective Lenses, Sees Flashes, Spots in Vision, Tunnel Vision, Other Visual Disturbances, Loss of Vision, Other Ears: absent: As Per HPI, Decreased Hearing, Ear Discharge, Ear Pain, Tinnitus, Abnormal Hearing, Disequilibrium, Dizziness, Other Nose/Mouth/Throat: absent: As Per HPI, Epistaxis, Nasal Congestion, Nasal Discharge, Nasal Obstruction, Nasal Trauma, Nose Pain, Post Nasal Drip, Sinus Pain, Sinus Pressure, Bleeding Gums, Change in Voice, Dental Pain, Dry Mouth, Dysphagia, Halitosis, Hoarsness, Lip Swelling, Mouth Lesions, Mouth Pain, Odynophagia, Sore Throat, Throat Swelling, Tongue Swelling, Facial Pain, Neck Pain, Neck Mass, Other - Breasts Breasts: absent: As Per HPI, Change in Shape, Mass, Pain, Nipple Discharge, Nipple Inversion, Skin Changes, Swelling, Other - Cardiovascular Cardiovascular: Dyspnea, Dyspnea on Exertion, Rapid Heart Rate - Respiratory Respiratory: Dyspnea, Dyspnea on Exertion - Gastrointestinal Gastrointestinal: absent: As Per HPI, Abdominal Pain, Belching, Bloating, Change in Bowel Habits, Change in Stool Character, Coffee Ground Emesis, Constipation, Cramping, Diarrhea, Dyspepsia, Dysphagia, Early Satiety, Excessive Flatus, Fecal Incontinence, Heartburn, Hematemesis, Hematochezia, Loose Stools, Melena, Nausea, Odynophagia, Temesmus, Vomiting, Other - Genitourinary Genitourinary: absent: As Per HPI, Change in Urinary Stream, Difficulty Urinating, Dysuria, Flank Pain, Hematuria, Pyuria, Nocturia, Urinary Incontinence, Urinary Frequency, Urinary Hesitance, Urinary Urgency, Voiding Freq/Small Amts, Freq UTI, Hx Renal/Bladder Calculi, Hx /Renal Surgery, Bladder Distension, Other - Reproductive: Female Reproductive:Female: Post Menopausal - Menstruation Menstruation: Post Menopausal - Musculoskeletal Musculoskeletal: Muscle Weakness - Integumentary Integumentary: absent: As Per HPI, Acne, Alopecia, Bleeding Lesions, Change in Hair, Change in Nails, Change in Pigmentation, Changing Lesions, Dry Skin, Erythema, Furuncle, Hirsutism, Lesions, New Lesions, Non-Healing Lesions, Photosensitivity, Pruritus, Rash, Skin Pain, Skin Ulcer, Sores, Striae, Swelling , Unusual Bruising, Wounds, Jaundice, Other - Neurological Neurological: Weakness - Psychiatric Psychiatric: Anxiety, Depression - Endocrine Endocrine: absent: As Per HPI, Change in Body Appearance, Change in Libido, Cold Intolorance, Deepening of Voice, Excessive Sweating, Fatigue, Flushing, Heat Intolorance, Increase in Ring/Shoe/Hat Size, Palpitations, Polydipsia, Polyphagia, Polyuria, Other - Hematologic/Lymphatic Hematologic: absent: As Per HPI, Easy Bleeding, Easy Bruising, Lymphadenopathy, Other Past Patient History - Infectious Disease Hx of Infectious Diseases: None - Tetanus Immunizations Tetanus Immunization: Unknown - Past Medical History & Family History Past Medical History?: Yes - Past Social History Smoking Status: Never Smoked - CARDIAC Hx Cardiac Disorders: Yes (CAD,A.FIB) Hx Congestive Heart Failure: Yes Hx Hypercholesterolemia: Yes Hx Hypertension: Yes - PULMONARY Hx Chronic Obstructive Pulmonary Disease (COPD): Yes - NEUROLOGICAL Hx Neurological Disorder: Yes Hx Dementia: Yes Hx Migraine: Yes - HEENT Hx HEENT Problems: No - RENAL Hx Chronic Kidney Disease: No Hx Kidney Stones: No - ENDOCRINE/METABOLIC Hx Diabetes Mellitus Type 2: Yes - HEMATOLOGICAL/ONCOLOGICAL Hx Blood Disorders: No Hx Anemia: No Hx Human Immunodeficiency Virus (HIV): No Hx Sickle Cell Disease: No - INTEGUMENTARY Hx Dermatological Problems: No - MUSCULOSKELETAL/RHEUMATOLOGICAL Hx Arthritis: Yes Hx Rheumatoid Arthritis: Yes - GASTROINTESTINAL Hx Gastrointestinal Disorders: Yes Hx Gall Bladder Disease: Yes - GENITOURINARY/GYNECOLOGICAL Hx Genitourinary Disorders: No Hx Sexually Transmitted Disorders: No - PSYCHIATRIC Hx Psychophysiologic Disorder: Yes Hx Anxiety: Yes Hx Bipolar Disorder: No Hx Depression: No Hx Post Traumatic Stress Disorder: No Hx Schizophrenia: No Hx Substance Use: No - SURGICAL HISTORY Hx Surgeries: Yes Hx Appendectomy: Yes Hx Cholecystectomy: Yes Hx Coronary Stent: Yes (proximal RCA stent) - ANESTHESIA Hx Anesthesia: Yes Hx Anesthesia Reactions: No Hx Malignant Hyperthermia: No Has any member of the family had a problem w/ anesthesia?: No Meds Allergies/Adverse Reactions: Allergies Allergy/AdvReac Type Severity Reaction Status Date / Time moxifloxacin HCl Allergy Severe ANAPHYLAXIS Verified 09/05/16 07:00 [From Avelox] - Medications Medications: Current Medications Acetaminophen (Tylenol 325mg Tab) 650 mg PO Q6H PRN PRN Reason: Headache Albuterol/Ipratropium (Duoneb 3 Mg/0.5 Mg (3 Ml) Ud) 3 ml INH RQ6 [facility] Last Admin: 09/16/16 07:51 Dose: 3 ml Amiodarone HCl (Cordarone) 200 mg PO DAILY [facility] Aspirin (Aspirin) 325 mg PO DAILY [facility] Last Admin: 09/15/16 10:59 Dose: 325 mg Benzonatate (Tessalon Perles) 100 mg PO TID PRN PRN Reason: cough Bisacodyl (Dulcolax) 5 mg PO DAILY PRN PRN Reason: constipation Last Admin: 09/15/16 18:19 Dose: 5 mg Carvedilol (Coreg) 6.25 mg PO BID [facility] Last Admin: 09/15/16 18:19 Dose: 6.25 mg Clopidogrel Bisulfate (Plavix) 75 mg PO DAILY [facility] Last Admin: 09/15/16 10:59 Dose: 75 mg Dronabinol (Marinol) 2.5 mg PO BID [facility] Last Admin: 09/15/16 18:19 Dose: 2.5 mg Enoxaparin Sodium (Lovenox) 30 mg SC Q12H [facility] Last Admin: 09/16/16 02:30 Dose: Not Given Famotidine (Pepcid) 20 mg PO DAILY [facility] Last Admin: 09/15/16 10:59 Dose: 20 mg Ferrous Sulfate (Feosol) 325 mg PO BID [facility] Last Admin: 09/15/16 18:19 Dose: 325 mg Furosemide (Lasix) 40 mg PO DAILY [facility] Last Admin: 09/15/16 14:47 Dose: Not Given Piperacillin Sod/Tazobactam (Sod 3.375 gm/ Sodium Chloride) 100 mls @ 200 mls/ hr IVPB Q8H [facility] Last Admin: 09/16/16 03:24 Dose: 200 mls/hr Lorazepam (Ativan) 1 mg PO Q12 [facility] Last Admin: 09/15/16 22:07 Dose: 1 mg Oxycodone/Acetaminophen (Percocet 5/325 Mg Tab) 1 tab PO Q6H PRN PRN Reason: Pain, moderate (4-7) Stop: 09/18/16 13:53 Rosuvastatin Calcium (Crestor) 5 mg PO HS [facility] Last Admin: 09/15/16 22:07 Dose: 5 mg Physical Exam - Constitutional Appears: In Acute Distress, Chronically Ill - Head Exam Head Exam: ATRAUMATIC, NORMAL INSPECTION, NORMOCEPHALIC - Eye Exam Eye Exam: EOMI, Normal appearance, PERRL Pupil Exam: NORMAL ACCOMODATION, PERRL - ENT Exam ENT Exam: Mucous Membranes Moist, Normal Exam - Neck Exam Neck exam: Positive for: Normal Inspection - Respiratory Exam Respiratory Exam: Accessory Muscle Use, Decreased Breath Sounds, Rhonchi, Respiratory Distress - Cardiovascular Exam Cardiovascular Exam: Tachycardia, Irregular Rhythm - GI/Abdominal Exam GI & Abdominal Exam: Normal Bowel Sounds, Soft - Rectal Exam Rectal Exam: Deferred - Extremities Exam Extremities exam: Positive for: normal inspection - Back Exam Back exam: NORMAL INSPECTION - Neurological Exam Neurological exam: Alert, Oriented x3 - Psychiatric Exam Psychiatric exam: Agitated, Anxious - Skin Skin Exam: Pallor Results - Vital Signs Recent Vital Signs: Last Vital Signs Temp 98 F 09/16/16 07:00 Pulse 64 09/16/16 07:57 Resp 17 09/16/16 06:40 BP 117/75 09/16/16 06:34 Pulse Ox 100 09/16/16 06:40 - Labs Result Diagrams: 09/16/16 06:31 09/16/16 06:31 Labs: Laboratory Results - last 24 hr 09/15/16 09/15/16 09/15/16 11:24 11:24 11:24 WBC 8.9 RBC 3.86 Hgb 9.0 L Hct 27.7 L MCV 71.7 L MCH 23.2 L MCHC 32.4 L RDW 18.3 H Plt Count 360 MPV 9.5 Neut % (Auto) 70.3 Lymph % (Auto) 17.6 L [place] % (Auto) 9.8 Eos % (Auto) 0.8 Baso % (Auto) 1.5 Neut # 6.3 Lymph # 1.6 [place] # 0.9 H Eos # 0.1 Baso # 0.1 Neutrophils % (Manual) Lymphocytes % (Manual) Monocytes % (Manual) Platelet Estimate Hypochromasia (manual) Poikilocytosis (manual Anisocytosis (manual) Ovalocytes Puncture Site pCO2 pO2 HCO3 ABG pH ABG Total CO2 ABG O2 Saturation ABG Base Excess ABG Hemoglobin ABG Carboxyhemoglobin POC ABG HHb (Measured) ABG Methemoglobin Gael Test ABG Potassium A-a O2 Difference Respiratory Index Hgb O2 Saturation Glucose Lactate Vent Mode FiO2 Inspiratory BiPAP Expiratory BiPAP Crit Value Called To Crit Value Called By Crit Value Read Back Blood Gas Notified Time Sodium 131 L Potassium 3.6 Chloride 93 L Carbon Dioxide 24 Anion Gap 18 BUN 24 H Creatinine 0.9 Est GFR ( Amer) > 60 Est GFR (Non-Af Amer) 60 POC Glucose (mg/dL) Random Glucose 103 Lactic Acid Calcium 8.4 L Phosphorus Magnesium Total Bilirubin 1.3 AST 33 ALT 29 Alkaline Phosphatase 121 Total Creatine Kinase CK-MB (Mass) Troponin I, Quant Total Protein 7.2 Albumin 3.5 Globulin 3.7 Albumin/Globulin Ratio 0.9 L Procalcitonin 0.42 Arterial Blood Potassium Ur L.pneumophila Ag Negative Mycoplasma pneumon IgM Negative 09/15/16 09/16/16 09/16/16 13:33 01:10 01:23 WBC RBC Hgb Hct MCV MCH MCHC RDW Plt Count MPV Neut % (Auto) Lymph % (Auto) [place] % (Auto) Eos % (Auto) Baso % (Auto) Neut # Lymph # [place] # Eos # Baso # Neutrophils % (Manual) Lymphocytes % (Manual) Monocytes % (Manual) Platelet Estimate Hypochromasia (manual) Poikilocytosis (manual Anisocytosis (manual) Ovalocytes Puncture Site pCO2 pO2 HCO3 ABG pH ABG Total CO2 ABG O2 Saturation ABG Base Excess ABG Hemoglobin ABG Carboxyhemoglobin POC ABG HHb (Measured) ABG Methemoglobin Gael Test ABG Potassium A-a O2 Difference Respiratory Index Hgb O2 Saturation Glucose Lactate Vent Mode FiO2 Inspiratory BiPAP Expiratory BiPAP Crit Value Called To Crit Value Called By Crit Value Read Back Blood Gas Notified Time Sodium Potassium Chloride Carbon Dioxide Anion Gap BUN Creatinine Est GFR ( Amer) Est GFR (Non-Af Amer) POC Glucose (mg/dL) 241 H 54 L 64 L Random Glucose Lactic Acid Calcium Phosphorus Magnesium Total Bilirubin AST ALT Alkaline Phosphatase Total Creatine Kinase CK-MB (Mass) Troponin I, Quant Total Protein Albumin Globulin Albumin/Globulin Ratio Procalcitonin Arterial Blood Potassium Ur L.pneumophila Ag Mycoplasma pneumon IgM 09/16/16 09/16/16 09/16/16 01:30 02:08 02:54 WBC RBC Hgb Hct MCV MCH MCHC RDW Plt Count MPV Neut % (Auto) Lymph % (Auto) [place] % (Auto) Eos % (Auto) Baso % (Auto) Neut # Lymph # [place] # Eos # Baso # Neutrophils % (Manual) Lymphocytes % (Manual) Monocytes % (Manual) Platelet Estimate Hypochromasia (manual) Poikilocytosis (manual Anisocytosis (manual) Ovalocytes Puncture Site Rb pCO2 18 L* pO2 140 H HCO3 10.3 L ABG pH 7.21 L ABG Total CO2 7.8 L ABG O2 Saturation 100.3 H ABG Base Excess -18.8 L ABG Hemoglobin 9.7 L ABG Carboxyhemoglobin 2.1 H POC ABG HHb (Measured) -0.3 L ABG Methemoglobin 0.7 Gael Test Na ABG Potassium A-a O2 Difference 123.0 Respiratory Index 0.9 Hgb O2 Saturation 97.4 Glucose Lactate Vent Mode Bipap FiO2 40.0 Inspiratory BiPAP 10 Expiratory BiPAP 5 Crit Value Called To Dr grove/ Crit Value Called By Lul thompson/rt Crit Value Read Back Y Blood Gas Notified Time 140 Sodium Potassium Chloride Carbon Dioxide Anion Gap BUN Creatinine Est GFR ( Amer) Est GFR (Non-Af Amer) POC Glucose (mg/dL) 55 L 147 H Random Glucose Lactic Acid Calcium Phosphorus Magnesium Total Bilirubin AST ALT Alkaline Phosphatase Total Creatine Kinase CK-MB (Mass) Troponin I, Quant Total Protein Albumin Globulin Albumin/Globulin Ratio Procalcitonin Arterial Blood Potassium Ur L.pneumophila Ag Mycoplasma pneumon IgM 09/16/16 09/16/16 09/16/16 03:00 03:03 03:03 WBC 11.6 H RBC 3.62 L Hgb 8.3 L Hct 27.4 L MCV 75.6 L D MCH 22.8 L MCHC 30.2 L RDW 18.1 H Plt Count 297 MPV 10.0 Neut % (Auto) 81.2 H Lymph % (Auto) 10.9 L [place] % (Auto) 7.2 Eos % (Auto) 0.3 Baso % (Auto) 0.4 Neut # 9.4 H Lymph # 1.3 [place] # 0.8 Eos # 0.0 Baso # 0.1 Neutrophils % (Manual) Lymphocytes % (Manual) Monocytes % (Manual) Platelet Estimate Hypochromasia (manual) Poikilocytosis (manual Anisocytosis (manual) Ovalocytes Puncture Site Rb pCO2 14 L* pO2 131 H HCO3 8.4 L* ABG pH 7.18 L* ABG Total CO2 5.6 L ABG O2 Saturation 99.7 H ABG Base Excess -21.2 L ABG Hemoglobin 7.4 L ABG Carboxyhemoglobin 1.9 H POC ABG HHb (Measured) 0.3 ABG Methemoglobin 1.7 Gael Test Na ABG Potassium A-a O2 Difference 137.0 Respiratory Index 1.0 Hgb O2 Saturation 96.1 Glucose Lactate Vent Mode Bipap FiO2 40.0 Inspiratory BiPAP 10 Expiratory BiPAP 5 Crit Value Called To Dr grove/ Crit Value Called By Lul thompson/rt Crit Value Read Back Y Blood Gas Notified Time 310 Sodium 127 L Potassium 6.3 H* D Chloride 90 L Carbon Dioxide 11 L* D Anion Gap 32 H BUN 34 H Creatinine 2.1 H Est GFR ( Amer) 27 Est GFR (Non-Af Amer) 23 POC Glucose (mg/dL) Random Glucose 314 H Lactic Acid Calcium 7.9 L Phosphorus 7.8 H Magnesium 2.2 Total Bilirubin 1.7 H AST 171 H D ALT 94 H D Alkaline Phosphatase 130 H Total Creatine Kinase 21 L CK-MB (Mass) 0.88 Troponin I, Quant 0.4490 H* Total Protein 6.3 Albumin 3.1 L Globulin 3.2 Albumin/Globulin Ratio 1.0 Procalcitonin Arterial Blood Potassium Ur L.pneumophila Ag Mycoplasma pneumon IgM 09/16/16 09/16/16 09/16/16 03:03 06:07 06:31 WBC 13.0 H RBC 3.45 L Hgb 7.8 L Hct 25.4 L MCV 73.6 L D MCH 22.7 L MCHC 30.8 L RDW 18.2 H Plt Count 257 MPV 9.8 Neut % (Auto) 87.1 H Lymph % (Auto) 6.8 L [place] % (Auto) 5.8 Eos % (Auto) 0.0 Baso % (Auto) 0.3 Neut # 11.3 H Lymph # 0.9 L [place] # 0.8 Eos # 0.0 Baso # 0.0 Neutrophils % (Manual) 91 H Lymphocytes % (Manual) 5 L Monocytes % (Manual) 4 Platelet Estimate Normal Hypochromasia (manual) Moderate Poikilocytosis (manual Slight Anisocytosis (manual) Slight Ovalocytes Slight Puncture Site Rb pCO2 29 L pO2 151 H HCO3 20.7 L ABG pH 7.40 ABG Total CO2 18.9 L ABG O2 Saturation 99.4 H ABG Base Excess -5.5 L ABG Hemoglobin ABG Carboxyhemoglobin POC ABG HHb (Measured) ABG Methemoglobin Gael Test Na ABG Potassium 3.9 A-a O2 Difference 98.0 Respiratory Index 0.6 Hgb O2 Saturation Glucose 244 H Lactate 8.7 H* Vent Mode Bipap FiO2 40.0 Inspiratory BiPAP 10 Expiratory BiPAP 5 Crit Value Called To Chris rn Crit Value Called By Elisa felling bucking supervisor Crit Value Read Back Y Blood Gas Notified Time 610 Sodium 135.0 Potassium Chloride 96.0 L Carbon Dioxide Anion Gap BUN Creatinine Est GFR ( Amer) Est GFR (Non-Af Amer) POC Glucose (mg/dL) Random Glucose Lactic Acid 13.7 H* Calcium Phosphorus Magnesium Total Bilirubin AST ALT Alkaline Phosphatase Total Creatine Kinase CK-MB (Mass) Troponin I, Quant Total Protein Albumin Globulin Albumin/Globulin Ratio Procalcitonin Arterial Blood Potassium 3.9 Ur L.pneumophila Ag Mycoplasma pneumon IgM 09/16/16 06:31 WBC RBC Hgb Hct MCV MCH MCHC RDW Plt Count MPV Neut % (Auto) Lymph % (Auto) [place] % (Auto) Eos % (Auto) Baso % (Auto) Neut # Lymph # [place] # Eos # Baso # Neutrophils % (Manual) Lymphocytes % (Manual) Monocytes % (Manual) Platelet Estimate Hypochromasia (manual) Poikilocytosis (manual Anisocytosis (manual) Ovalocytes Puncture Site pCO2 pO2 HCO3 ABG pH ABG Total CO2 ABG O2 Saturation ABG Base Excess ABG Hemoglobin ABG Carboxyhemoglobin POC ABG HHb (Measured) ABG Methemoglobin Gael Test ABG Potassium A-a O2 Difference Respiratory Index Hgb O2 Saturation Glucose Lactate Vent Mode FiO2 Inspiratory BiPAP Expiratory BiPAP Crit Value Called To Crit Value Called By Crit Value Read Back Blood Gas Notified Time Sodium 134 Potassium 3.8 Chloride 93 L Carbon Dioxide 20 L Anion Gap 25 H BUN 39 H Creatinine 1.7 H Est GFR ( Amer) 35 Est GFR (Non-Af Amer) 29 POC Glucose (mg/dL) Random Glucose 234 H Lactic Acid Calcium 7.4 L Phosphorus 5.7 H Magnesium 2.0 Total Bilirubin 1.7 H AST 1104 H ALT 612 H D Alkaline Phosphatase 122 Total Creatine Kinase CK-MB (Mass) Troponin I, Quant Total Protein 6.0 L Albumin 2.9 L Globulin 3.0 Albumin/Globulin Ratio 1.0 Procalcitonin Arterial Blood Potassium Ur L.pneumophila Ag Mycoplasma pneumon IgM Assessment & Plan - Assessment and Plan (Free Text) Assessment: palliative consult Code status Full Code, there is no advance directive on chart, PPS 20% I reviewed medical records, all diagnostic studies, examined and interviewed patient in the bed. I have been seeing this patient for many times now for goals of care discussion. Patient has been intubated many times for MV support. She looks chronically ill , alert, in mild respiratory distress, lethargic, responding to stimuli appropriately. Patient act anxiously when waken up. Patient is bagging for help and is asking for her daughter Juju. I reassured her I was going to call Juju over the phone, what calmed her down. There is Ativan 1 mg PO Q 12 hr ordered. Skin is pale, hb dropping to 7.3. Patient looks like if she was loosing weight . Diminished breath sounds, patient unable to speak in full sentences due to SOB. HR 64 regular, no murmur. Abdomen soft, active bowel sounds. Mild pedal edema. Neb Tx on board and Zosyn IV. Goals of care discussed in past with patient and her daughter, many times. patient has verbally expressed wishes to be treated conservativelly only with out assistance fro MV and to be allowed natural . When presented with POLST to ign, patient would ask for daughter Juju to be present. The daughter talked patient out of it every time. On 09/05/16 while patient was on ICU the agreement for DNR/DNI was achieved between patient and Doctor marla and DNR/DNI order was placed in. No POLST was completed. After talking to Doctor Caren, the concern was expresed about patient's quality of life, her undecided Code status and risk for the need of MV assistance again. I called patient's daughter Juju this morning and left the voice mail. As per Nathan LEAL, Code status was discussed with patient and her daughter last night and they decided against DNR/DNI Impression * This is chronically Ill lady with multiple readmissions and assistance with MV * Patient is showing steady decline due to severe COPD * Patient is verbally suggesting she would want only ordinary measures to assist her with the symptoms but being underr the influence of her daughter Juju , patient never signed POLST * Per ICU staff Code status was discussed again last night and Full Code chosen Suggestion * I feel that at this point of patient's life some other mean of assisting respiratory status should be discussed,; maybe the tracheotomy is an option * Bed rest to preserve energy * Assist with ADLs I will continue to fallow up with patient and her daughter and assist them in the decision making process. Thank you for consulting Palliative care
--- NOTE | 2016-09-16 12:53 | RAD ---
HISTORY: SOB COMPARISON: Comparison made with prior chest radiograph 09/14/2016 FINDINGS: LUNGS: No active pulmonary disease. PLEURA: Mild patchy changes seen throughout the left lung most on confluent appearance in the left lower lung field which could represent atelectasis, pneumonia or possibly asymmetric pulmonary edema not excluded. Clinical correlation recommended. CARDIOVASCULAR: Heart is enlarged. No change single lead pacemaker/defibrillator. OSSEOUS STRUCTURES: No significant abnormalities. VISUALIZED UPPER ABDOMEN: Normal. OTHER FINDINGS: None. IMPRESSION: Mild patchy changes seen throughout the left lung most on confluent appearance in the left lower lung field which could represent atelectasis, pneumonia or possibly asymmetric pulmonary edema not excluded. Clinical correlation recommended.
[2016-09-17] MEDS: Albuterol-Ipratrop 3 mg / 0.5 (3 ml) UD INH SCH ×4 (01:10→20:25)
[2016-09-17] MEDS: Piperacillin/Tazobact 3.375 GM in Sodium Chloride 100 ML IVPB SCH ×3 (03:18→17:44)
[2016-09-17 06:45] LABS: BASO # 0.1 K/uL (0.0-0.2); BASO % 1.3 % (0.0-2.0); EOS # 0.2 K/uL (0.0-0.7); EOS % 1.5 % (0.0-4.0); HEMATOCRIT 24.6 % (34.0-47.0); LYMPH # 0.7 K/uL (1.0-4.3); LYMPH % 6.9 % (20.0-40.0); MEAN CORPUSCULAR HGB CONC 31.9 g/dL (33.0-37.0); MEAN PLATELET VOLUME 9.6 fL (7.2-11.7); MONO # 0.6 K/uL (0.0-0.8); MONO % 5.2 % (0.0-10.0); NRBC % 1.6 % (0.0-2.0); PLATELET COUNT 272 K/uL (130-400); RED CELL DISTRIBUTION WIDTH 17.9 % (11.5-14.5); WHITE BLOOD COUNT 10.5 K/uL (4.8-10.8)
[2016-09-17 07:02] LABS: BILIRUBIN,TOTAL 1.3 mg/dL (0.2-1.3); CALCIUM 7.1 mg/dl (8.6-10.4); MAGNESIUM 1.9 mg/dL (1.6-2.3); POTASSIUM 2.9 mmol/L (3.6-5.2); TOTAL PROTEIN 6.1 g/dL (6.3-8.3)
[2016-09-17 09:36] LABS: EOSINOPHIL 1 % (0-4); NEUTROPHIL 92 % (50-75); NUCLEATED RED BLOOD CELL 3 % (0-0); TOTAL CELLS COUNTED 100
[2016-09-17 09:38] LABS: GIANT PLATELETS PRESENT; LARGE PLATELETS PRESENT
[2016-09-17] MEDS ORDERED: Potassium Chloride 20 mEq/15 ml LIQ UD PO ONE (10:00)
[2016-09-17] MEDS: Enoxaparin 30 mg Syringe SC SCH (10:21)
--- NOTE | 2016-09-17 11:33 | RAD ---
HISTORY: shortness of breath COMPARISON: Comparison made with prior chest radiograph 09/16/2016 FINDINGS: LUNGS: Re- demonstrated is patchy opacity in the left mid to lower lung field that may represent some combination of atelectasis/infiltrate and effusion. Right lung relatively clear. PLEURA: As above. No apparent pneumothorax. CARDIOVASCULAR: Heart remains enlarged. No change single lead pacemaker/defibrillator OSSEOUS STRUCTURES: No significant abnormalities. VISUALIZED UPPER ABDOMEN: Normal. OTHER FINDINGS: None. IMPRESSION: Re- demonstrated is patchy opacity in the left mid to lower lung field that may represent some combination of atelectasis/infiltrate and effusion. Right lung relatively clear.
[2016-09-17] MEDS: Oxycodone/Acetaminophen 5/325 mg Tab PO PRN (17:36)
--- NOTE | 2016-09-17 21:34 | CP.CCUPN ---
CCU Subjective - Physician Review Events Since Last Encounter (Free Text): 09/17/16 21:34 She with the acute heart failure, admitted to the ICU. Patient is currently doing well. Off BiPAP. No drips running. Out of bed to chair. Anxious and agitation and anxiety noted. Clinical stable. Final diagnosis acute decompensated systolic heart failure. Her current respiratory failure. Clinical stable. We'll transfer to floor tomorrow CCU Objective - Vital Signs / Intake & Output Vital Signs (Last 4 hours): Vital Signs Temp Pulse Resp BP Pulse Ox 09/17/16 20:00 97.4 F L 69 19 100 09/17/16 19:33 65 24 101/60 100 09/17/16 19:00 67 17 98 09/17/16 18:34 68 25 H 108/68 100 09/17/16 18:00 68 28 H 81 L Intake and Output (Last 8hrs): Intake & Output 09/17/16 09/17/16 09/17/16 06:59 14:59 22:59 Intake Total 200 470 230 Output Total 380 620 260 Balance -180 -150 -30 Intake: Intake, IV Amount 100 Right Femoral 100 Oral 100 470 230 Output: Urine 380 620 260 Urine, Voided 380 620 260 Other: # Bowel Movements 0 0 - Physical Exam Head: Positive for: Atraumatic, Normocephalic Pupils: Positive for: PERRL Ears: Positive for: Normal Mouth: Positive for: Moist Mucous Membranes Pharnyx: Positive for: Normal Neck: Positive for: Normal Range of Motion Respiratory/Chest: Positive for: Rhonchi Cardiovascular: Positive for: Irregular Rhythm Abdomen: Positive for: Normal Bowel Sounds Upper Extremity: Positive for: Normal Inspection Lower Extremity: Positive for: Normal Inspection Neurological: Positive for: Other (lethergic) - Medications Active Medications: Active Medications Generic Name Dose Route Start Last Admin Trade Name Freq PRN Reason Stop Dose Admin Acetaminophen 650 mg 09/15/16 15:15 Tylenol 325mg Tab PO Q6H PRN Headache Albuterol/Ipratropium 3 ml 09/15/16 08:00 09/17/16 20:25 Duoneb 3 Mg/0.5 Mg (3 Ml) Ud INH 3 ml RQ6 BLAKE Administration Amiodarone HCl 200 mg 09/15/16 10:59 09/16/16 11:24 Cordarone PO 200 mg DAILY BLAKE Administration Aspirin 325 mg 09/15/16 10:00 09/17/16 10:21 Aspirin PO 325 mg DAILY BLAKE Administration Benzonatate 100 mg 09/14/16 20:42 Tessalon Perles PO TID PRN cough Bisacodyl 5 mg 09/14/16 20:42 09/15/16 18:19 Dulcolax PO 5 mg DAILY PRN Administration constipation Carvedilol 6.25 mg 09/15/16 18:00 09/15/16 18:19 Coreg PO 6.25 mg BID BLAKE Administration Clopidogrel Bisulfate 75 mg 09/15/16 10:00 09/17/16 10:21 Plavix PO 75 mg DAILY BLAKE Administration Dronabinol 2.5 mg 09/15/16 18:00 09/17/16 17:36 Marinol PO 2.5 mg BID BLAKE Administration Enoxaparin Sodium 30 mg 09/16/16 11:15 09/17/16 10:21 Lovenox SC 30 mg Q24H BLAKE Administration Famotidine 20 mg 09/15/16 10:00 09/17/16 10:21 Pepcid PO 20 mg DAILY BLAKE Administration Ferrous Sulfate 325 mg 09/15/16 10:00 09/17/16 17:37 Feosol PO 325 mg BID BLAKE Administration Furosemide 40 mg 09/15/16 14:15 09/17/16 10:21 Lasix PO 40 mg DAILY BLAKE Administration Piperacillin Sod/Tazobactam 100 mls @ 200 mls/hr 09/16/16 02:15 09/17/16 17: 44 Sod 3.375 gm/ Sodium Chloride IVPB 200 mls/hr Q8H BLAKE Administration Lorazepam 1 mg 09/15/16 14:00 09/17/16 11:00 Ativan PO Not Given Q12 BLAKE Oxycodone/Acetaminophen 1 tab 09/15/16 13:52 09/17/16 17:36 Percocet 5/325 Mg Tab PO 09/18/16 13:53 1 tab Q6H PRN Administration Pain, moderate (4-7) Rosuvastatin Calcium 5 mg 09/15/16 22:00 09/16/16 21:20 Crestor PO 5 mg HS BLAKE Administration - Patient Studies Lab Studies: Microbiology Studies 09/16/16 04:42 MRSA Culture (Admit) - Final Naris MRSA NOT DETECTED 09/16/16 02:45 Blood Culture - Preliminary Blood NO GROWTH AFTER 24 HOURS 09/16/16 02:45 Blood Culture - Preliminary Blood NO GROWTH AFTER 24 HOURS Lab Studies 09/17/16 09/17/16 09/17/16 Range/Units 17:00 14:05 07:14 WBC (4.8-10.8) K/uL RBC (3.80-5.20) Mil/uL Hgb (11.0-16.0) g/dL Hct (34.0-47.0) % MCV (81.0-99.0) fL MCH (27.0-31.0) pg MCHC (33.0-37.0) g/dL RDW (11.5-14.5) % Plt Count (130-400) K/uL MPV (7.2-11.7) fL Neut % (Auto) (50.0-75.0) % Lymph % (Auto) (20.0-40.0) % [place] % (Auto) (0.0-10.0) % Eos % (Auto) (0.0-4.0) % Baso % (Auto) (0.0-2.0) % Neut # (1.8-7.0) K/uL Lymph # (1.0-4.3) K/uL [place] # (0.0-0.8) K/uL Eos # (0.0-0.7) K/uL Baso # (0.0-0.2) K/uL Neutrophils % (Manual) (50-75) % Lymphocytes % (Manual) (20-40) % Monocytes % (Manual) (0-10) % Eosinophils % (Manual) (0-4) % Nucleated RBC % (0-0) % Platelet Estimate (NORMAL) Large Platelets Giant Platelets Polychromasia Hypochromasia (manual) Anisocytosis (manual) Target Cells Sodium (132-148) mmol/L Potassium (3.6-5.2) mmol/L Chloride (98-107) mmol/L Carbon Dioxide (22-30) mmol/L Anion Gap (10-20) BUN (7-17) mg/dL Creatinine (0.7-1.2) MG/DL Est GFR ( Amer) Est GFR (Non-Af Amer) POC Glucose (mg/dL) 150 H 190 H 109 (65-110) mg/dL Random Glucose (65-105) mg/dL Calcium (8.6-10.4) mg/dl Phosphorus (2.5-4.5) mg/dL Magnesium (1.6-2.3) mg/dL Total Bilirubin (0.2-1.3) mg/dL AST (14-36) U/L ALT (9-52) U/L Alkaline Phosphatase (38-126) U/L Total Protein (6.3-8.3) g/dL Albumin (3.5-5.0) g/dL Globulin (2.2-3.9) gm/dL Albumin/Globulin Ratio (1.0-2.1) 09/17/16 09/17/16 09/16/16 Range/Units 06:36 06:36 21:40 WBC 10.5 (4.8-10.8) K/uL RBC 3.42 L (3.80-5.20) Mil/uL Hgb 7.9 L (11.0-16.0) g/dL Hct 24.6 L (34.0-47.0) % MCV 72.0 L (81.0-99.0) fL MCH 23.0 L (27.0-31.0) pg MCHC 31.9 L (33.0-37.0) g/dL RDW 17.9 H (11.5-14.5) % Plt Count 272 (130-400) K/uL MPV 9.6 (7.2-11.7) fL Neut % (Auto) 85.1 H (50.0-75.0) % Lymph % (Auto) 6.9 L (20.0-40.0) % [place] % (Auto) 5.2 (0.0-10.0) % Eos % (Auto) 1.5 (0.0-4.0) % Baso % (Auto) 1.3 (0.0-2.0) % Neut # 9.0 H (1.8-7.0) K/uL Lymph # 0.7 L (1.0-4.3) K/uL [place] # 0.6 (0.0-0.8) K/uL Eos # 0.2 (0.0-0.7) K/uL Baso # 0.1 (0.0-0.2) K/uL Neutrophils % (Manual) 92 H (50-75) % Lymphocytes % (Manual) 5 L (20-40) % Monocytes % (Manual) 2 (0-10) % Eosinophils % (Manual) 1 (0-4) % Nucleated RBC % 3 H (0-0) % Platelet Estimate Normal (NORMAL) Large Platelets Present Giant Platelets Present Polychromasia Slight Hypochromasia (manual) Slight Anisocytosis (manual) Slight Target Cells Slight Sodium 135 (132-148) mmol/L Potassium 2.9 L (3.6-5.2) mmol/L Chloride 93 L (98-107) mmol/L Carbon Dioxide 28 (22-30) mmol/L Anion Gap 17 (10-20) BUN 33 H (7-17) mg/dL Creatinine 1.1 (0.7-1.2) MG/DL Est GFR ( Amer) 58 Est GFR (Non-Af Amer) 48 POC Glucose (mg/dL) 102 (65-110) mg/dL Random Glucose 96 (65-105) mg/dL Calcium 7.1 L (8.6-10.4) mg/dl Phosphorus 3.0 (2.5-4.5) mg/dL Magnesium 1.9 (1.6-2.3) mg/dL Total Bilirubin 1.3 (0.2-1.3) mg/dL AST 1906 H (14-36) U/L ALT 1081 H (9-52) U/L Alkaline Phosphatase 143 H (38-126) U/L Total Protein 6.1 L (6.3-8.3) g/dL Albumin 3.0 L (3.5-5.0) g/dL Globulin 3.1 (2.2-3.9) gm/dL Albumin/Globulin Ratio 1.0 (1.0-2.1) Laboratory Results - last 24 hr 09/16/16 09/17/16 09/17/16 21:40 06:36 06:36 WBC 10.5 RBC 3.42 L Hgb 7.9 L Hct 24.6 L MCV 72.0 L MCH 23.0 L MCHC 31.9 L RDW 17.9 H Plt Count 272 MPV 9.6 Neut % (Auto) 85.1 H Lymph % (Auto) 6.[address] [place] % (Auto) 5.2 Eos % (Auto) 1.5 Baso % (Auto) 1.3 Neut # 9.0 H Lymph # 0.[address] [place] # 0.6 Eos # 0.2 Baso # 0.1 Neutrophils % (Manual) 92 H Lymphocytes % (Manual) 5 L Monocytes % (Manual) 2 Eosinophils % (Manual) 1 Nucleated RBC % 3 H Platelet Estimate Normal Large Platelets Present Giant Platelets Present Polychromasia Slight Hypochromasia (manual) Slight Anisocytosis (manual) Slight Target Cells Slight Sodium 135 Potassium 2.9 L Chloride 93 L Carbon Dioxide 28 Anion Gap 17 BUN 33 H Creatinine 1.1 Est GFR ( Amer) 58 Est GFR (Non-Af Amer) 48 POC Glucose (mg/dL) 102 Random Glucose 96 Calcium 7.1 L Phosphorus 3.0 Magnesium 1.9 Total Bilirubin 1.3 AST 1906 H ALT 1081 H Alkaline Phosphatase 143 H Total Protein 6.1 L Albumin 3.0 L Globulin 3.1 Albumin/Globulin Ratio 1.0 09/17/16 09/17/16 09/17/16 07:14 14:05 17:00 WBC RBC Hgb Hct MCV MCH MCHC RDW Plt Count MPV Neut % (Auto) Lymph % (Auto) [place] % (Auto) Eos % (Auto) Baso % (Auto) Neut # Lymph # [place] # Eos # Baso # Neutrophils % (Manual) Lymphocytes % (Manual) Monocytes % (Manual) Eosinophils % (Manual) Nucleated RBC % Platelet Estimate Large Platelets Giant Platelets Polychromasia Hypochromasia (manual) Anisocytosis (manual) Target Cells Sodium Potassium Chloride Carbon Dioxide Anion Gap BUN Creatinine Est GFR ( Amer) Est GFR (Non-Af Amer) POC Glucose (mg/dL) 109 190 H 150 H Random Glucose Calcium Phosphorus Magnesium Total Bilirubin AST ALT Alkaline Phosphatase Total Protein Albumin Globulin Albumin/Globulin Ratio Fingerstick Blood Sugar Results: 190 Critical Care Progress Note - Nutrition Nutrition: Nutrition Category Date Time Status Heart Healthy Diet [DIET] Diets 09/15/16 Breakfast Active
[2016-09-18] MEDS: Albuterol-Ipratrop 3 mg / 0.5 (3 ml) UD INH SCH ×4 (01:02→20:52)
[2016-09-18] MEDS: Piperacillin/Tazobact 3.375 GM in Sodium Chloride 100 ML IVPB SCH ×2 (03:08→10:56)
[2016-09-18 06:19] LABS: BASO # 0.1 K/uL (0.0-0.2); BASO % 0.9 % (0.0-2.0); EOS # 0.3 K/uL (0.0-0.7); EOS % 3.6 % (0.0-4.0); HEMATOCRIT 24.9 % (34.0-47.0); MEAN CELL VOLUME 72.4 fL (81.0-99.0); MEAN CORPUSCULAR HGB CONC 31.8 g/dL (33.0-37.0); MEAN PLATELET VOLUME 9.8 fL (7.2-11.7); MONO # 0.9 K/uL (0.0-0.8); MONO % 9.9 % (0.0-10.0); NRBC % 1.4 % (0.0-2.0); RED CELL DISTRIBUTION WIDTH 18.3 % (11.5-14.5); WHITE BLOOD COUNT 9.3 K/uL (4.8-10.8)
[2016-09-18 06:34] LABS: ALB/GLOB RATIO 0.9 (1.0-2.1); ALKALINE PHOSPHATASE 163 U/L (38-126); ALT/SGPT 748 U/L (9-52); BILIRUBIN,TOTAL 1.2 mg/dL (0.2-1.3); BLOOD UREA NITROGEN 28 mg/dL (7-17); CALCIUM 7.5 mg/dl (8.6-10.4); CARBON DIOXIDE 26 mmol/L (22-30); CHLORIDE 93 mmol/L (98-107); GFR AFRICAN-AMERICAN > 60; GLUCOSE,RANDOM 99 mg/dL (65-105); PHOSPHOROUS 2.7 mg/dL (2.5-4.5); POTASSIUM 3.3 mmol/L (3.6-5.2); SODIUM 139 mmol/L (132-148); TOTAL PROTEIN 6.4 g/dL (6.3-8.3)
[2016-09-18 07:04] LABS: AST/SGOT 780 U/L (14-36)
[2016-09-18] MEDS ORDERED: Potassium Chloride 20 mEq/15 ml LIQ UD PO ONE (08:15)
[2016-09-18] MEDS: Enoxaparin 30 mg Syringe SC SCH (10:55)
[2016-09-18] MEDS: Oxycodone/Acetaminophen 5/325 mg Tab PO PRN (11:07)
--- NOTE | 2016-09-18 17:56 | CP.CCUPN ---
CCU Subjective - Physician Review Events Since Last Encounter (Free Text): 09/18/16 17:54 Patient is currently stable today. No respiratory distress today. Patient was able to sit up outside. No chest pain or shortness of breath. But the patient is very anxious and agitated Vital signs reviewed No neck vein distention noted Chest good air entry bilaterally, no wheezing or rales noted CVS regular heart sound, no murmur noted Abdomen soft, nontender. Extremities no pedal edema OSTOMY NURSE alert awake oriented 3, no functional neurological deficit Vital signs stable. Labs reviewed Nonspecific Assessment and recommendation: 81 female with history of advanced heart disease heart failure COPD anxiety. Patient admitted with acute respiratory failure, COPD, heart failure and decompensated systolic heart failure. Patient also had a liver enzymes elevation, likely secondary to medication and cardiogenic. Patient is stable transferred to telemetry CCU Objective - Vital Signs / Intake & Output Vital Signs (Last 4 hours): Vital Signs Temp Pulse Resp 09/18/16 16:00 98.4 F 72 23 09/18/16 15:00 72 25 H 09/18/16 14:00 71 27 H Intake and Output (Last 8hrs): Intake & Output 09/18/16 09/18/16 09/18/16 06:59 14:59 22:59 Intake Total 290 540 80 Output Total 295 150 Balance -5 390 80 Intake: Intake, IV Amount 100 100 Right Femoral 100 100 Oral 190 440 80 Output: Urine 295 150 Urethral (Hernandez) 295 150 Other: # Bowel Movements 0 - Physical Exam Head: Positive for: Atraumatic, Normocephalic Pupils: Positive for: PERRL Ears: Positive for: Normal Mouth: Positive for: Moist Mucous Membranes Pharnyx: Positive for: Normal Neck: Positive for: Normal Range of Motion Respiratory/Chest: Positive for: Rhonchi Cardiovascular: Positive for: Irregular Rhythm Abdomen: Positive for: Normal Bowel Sounds Upper Extremity: Positive for: Normal Inspection Lower Extremity: Positive for: Normal Inspection Neurological: Positive for: Other (lethergic) - Medications Active Medications: Active Medications Generic Name Dose Route Start Last Admin Trade Name Freq PRN Reason Stop Dose Admin Acetaminophen 650 mg 09/15/16 15:15 Tylenol 325mg Tab PO Q6H PRN Headache Albuterol/Ipratropium 3 ml 09/15/16 08:00 09/18/16 13:21 Duoneb 3 Mg/0.5 Mg (3 Ml) Ud INH 3 ml RQ6 BLAKE Administration Amiodarone HCl 200 mg 09/15/16 10:59 09/16/16 11:24 Cordarone PO 200 mg DAILY BLAKE Administration Aspirin 325 mg 09/15/16 10:00 09/18/16 09:16 Aspirin PO 325 mg DAILY BLAKE Administration Benzonatate 100 mg 09/14/16 20:42 09/18/16 09:17 Tessalon Perles PO 100 mg TID PRN Administration cough Bisacodyl 5 mg 09/14/16 20:42 09/15/16 18:19 Dulcolax PO 5 mg DAILY PRN Administration constipation Carvedilol 6.25 mg 09/15/16 18:00 09/15/16 18:19 Coreg PO 6.25 mg BID BLAKE Administration Clopidogrel Bisulfate 75 mg 09/15/16 10:00 09/18/16 09:20 Plavix PO 75 mg DAILY BLAKE Administration Dronabinol 2.5 mg 09/15/16 18:00 09/18/16 09:16 Marinol PO 2.5 mg BID BLAKE Administration Enoxaparin Sodium 30 mg 09/16/16 11:15 09/18/16 10:55 Lovenox SC 30 mg Q24H BLAKE Administration Famotidine 20 mg 09/15/16 10:00 09/18/16 09:17 Pepcid PO 20 mg DAILY BLAKE Administration Ferrous Sulfate 325 mg 09/15/16 10:00 09/18/16 09:17 Feosol PO 325 mg BID BLAKE Administration Furosemide 40 mg 09/15/16 14:15 09/18/16 09:16 Lasix PO 40 mg DAILY BLAKE Administration Piperacillin Sod/Tazobactam Sod 3.375 gm in 50 mls @ 100 mls/hr 09/18/16 19: 00 Zosyn 3.375 Gm Iv Premix IVPB Q8H BLAKE Lorazepam 1 mg 09/15/16 14:00 09/18/16 09:18 Ativan PO Not Given Q12 BLAKE Rosuvastatin Calcium 5 mg 09/15/16 22:00 09/16/16 21:20 Crestor PO 5 mg HS BLAKE Administration - Patient Studies Lab Studies: Microbiology Studies 09/16/16 02:45 Blood Culture - Preliminary Blood NO GROWTH AFTER 48 HOURS 09/16/16 02:45 Blood Culture - Preliminary Blood NO GROWTH AFTER 48 HOURS Lab Studies 09/18/16 09/18/16 09/18/16 Range/Units 16:28 11:12 07:22 WBC (4.8-10.8) K/uL RBC (3.80-5.20) Mil/uL Hgb (11.0-16.0) g/dL Hct (34.0-47.0) % MCV (81.0-99.0) fL MCH (27.0-31.0) pg MCHC (33.0-37.0) g/dL RDW (11.5-14.5) % Plt Count (130-400) K/uL MPV (7.2-11.7) fL Neut % (Auto) (50.0-75.0) % Lymph % (Auto) (20.0-40.0) % Desha % (Auto) (0.0-10.0) % Eos % (Auto) (0.0-4.0) % Baso % (Auto) (0.0-2.0) % Neut # (1.8-7.0) K/uL Lymph # (1.0-4.3) K/uL Desha # (0.0-0.8) K/uL Eos # (0.0-0.7) K/uL Baso # (0.0-0.2) K/uL Sodium (132-148) mmol/L Potassium (3.6-5.2) mmol/L Chloride (98-107) mmol/L Carbon Dioxide (22-30) mmol/L Anion Gap (10-20) BUN (7-17) mg/dL Creatinine (0.7-1.2) MG/DL Est GFR ( Amer) Est GFR (Non-Af Amer) POC Glucose (mg/dL) 129 H 143 H 117 H (65-110) mg/dL Random Glucose (65-105) mg/dL Calcium (8.6-10.4) mg/dl Phosphorus (2.5-4.5) mg/dL Magnesium (1.6-2.3) mg/dL Total Bilirubin (0.2-1.3) mg/dL AST (14-36) U/L ALT (9-52) U/L Alkaline Phosphatase (38-126) U/L Total Protein (6.3-8.3) g/dL Albumin (3.5-5.0) g/dL Globulin (2.2-3.9) gm/dL Albumin/Globulin Ratio (1.0-2.1) 09/18/16 09/18/16 09/17/16 Range/Units 06:07 06:06 21:43 WBC 9.3 (4.8-10.8) K/uL RBC 3.43 L (3.80-5.20) Mil/uL Hgb 7.9 L (11.0-16.0) g/dL Hct 24.9 L (34.0-47.0) % MCV 72.4 L (81.0-99.0) fL MCH 23.0 L (27.0-31.0) pg MCHC 31.8 L (33.0-37.0) g/dL RDW 18.3 H (11.5-14.5) % Plt Count 277 (130-400) K/uL MPV 9.8 (7.2-11.7) fL Neut % (Auto) 74.6 (50.0-75.0) % Lymph % (Auto) 11.0 L (20.0-40.0) % [place]ha % (Auto) 9.9 (0.0-10.0) % Eos % (Auto) 3.6 (0.0-4.0) % Baso % (Auto) 0.9 (0.0-2.0) % Neut # 6.9 (1.8-7.0) K/uL Lymph # 1.0 (1.0-4.3) K/uL Desha # 0.9 H (0.0-0.8) K/uL Eos # 0.3 (0.0-0.7) K/uL Baso # 0.1 (0.0-0.2) K/uL Sodium 139 (132-148) mmol/L Potassium 3.3 L (3.6-5.2) mmol/L Chloride 93 L (98-107) mmol/L Carbon Dioxide 26 (22-30) mmol/L Anion Gap 23 H (10-20) BUN 28 H (7-17) mg/dL Creatinine 1.0 (0.7-1.2) MG/DL Est GFR ( Amer) > 60 Est GFR (Non-Af Amer) 53 POC Glucose (mg/dL) 122 H (65-110) mg/dL Random Glucose 99 (65-105) mg/dL Calcium 7.5 L (8.6-10.4) mg/dl Phosphorus 2.7 (2.5-4.5) mg/dL Magnesium 2.0 (1.6-2.3) mg/dL Total Bilirubin 1.2 (0.2-1.3) mg/dL AST 780 H D (14-36) U/L ALT 748 H D (9-52) U/L Alkaline Phosphatase 163 H (38-126) U/L Total Protein 6.4 (6.3-8.3) g/dL Albumin 3.1 L (3.5-5.0) g/dL Globulin 3.4 (2.2-3.9) gm/dL Albumin/Globulin Ratio 0.9 L (1.0-2.1) Laboratory Results - last 24 hr 09/17/16 09/18/16 09/18/16 21:43 06:06 06:07 WBC 9.3 RBC 3.43 L Hgb 7.9 L Hct 24.9 L MCV 72.4 L MCH 23.0 L MCHC 31.8 L RDW 18.3 H Plt Count 277 MPV 9.8 Neut % (Auto) 74.6 Lymph % (Auto) 11.0 L Desha % (Auto) 9.9 Eos % (Auto) 3.6 Baso % (Auto) 0.9 Neut # 6.9 Lymph # 1.0 Desha # 0.9 H Eos # 0.3 Baso # 0.1 Sodium 139 Potassium 3.3 L Chloride 93 L Carbon Dioxide 26 Anion Gap 23 H BUN 28 H Creatinine 1.0 Est GFR ( Amer) > 60 Est GFR (Non-Af Amer) 53 POC Glucose (mg/dL) 122 H Random Glucose 99 Calcium 7.5 L Phosphorus 2.7 Magnesium 2.0 Total Bilirubin 1.2 AST 780 H D ALT 748 H D Alkaline Phosphatase 163 H Total Protein 6.4 Albumin 3.1 L Globulin 3.4 Albumin/Globulin Ratio 0.9 L 09/18/16 09/18/16 09/18/16 07:22 11:12 16:28 WBC RBC Hgb Hct MCV MCH MCHC RDW Plt Count MPV Neut % (Auto) Lymph % (Auto) Desha % (Auto) Eos % (Auto) Baso % (Auto) Neut # Lymph # Desha # Eos # Baso # Sodium Potassium Chloride Carbon Dioxide Anion Gap BUN Creatinine Est GFR ( Amer) Est GFR (Non-Af Amer) POC Glucose (mg/dL) 117 H 143 H 129 H Random Glucose Calcium Phosphorus Magnesium Total Bilirubin AST ALT Alkaline Phosphatase Total Protein Albumin Globulin Albumin/Globulin Ratio Fingerstick Blood Sugar Results: 143 Critical Care Progress Note - Nutrition Nutrition: Nutrition Category Date Time Status Heart Healthy Diet [DIET] Diets 09/15/16 Breakfast Active
[2016-09-18] MEDS: Piperacill/Tazo 3.375gm in Dex 3.375 GM/50 ML BAG IVPB SCH (18:34)
--- NOTE | 2016-09-18 18:37 | PN ---
The patient has complaint of weakness, fatigue, lethargic, supportive care *------* Gisselle Beck MD
[2016-09-19] MEDS: Albuterol-Ipratrop 3 mg / 0.5 (3 ml) UD INH SCH ×4 (01:13→19:54)
[2016-09-19] MEDS: Piperacill/Tazo 3.375gm in Dex 3.375 GM/50 ML BAG IVPB SCH ×3 (02:14→18:05)
[2016-09-19 05:02] LABS: BASO # 0.1 K/uL (0.0-0.2); BASO % 1.2 % (0.0-2.0); EOS # 0.2 K/uL (0.0-0.7); HEMATOCRIT 24.4 % (34.0-47.0); LYMPH % 11.7 % (20.0-40.0); MEAN CELL VOLUME 72.2 fL (81.0-99.0); MEAN CORPUSCULAR HEMOGLOBIN 22.9 pg (27.0-31.0); MEAN CORPUSCULAR HGB CONC 31.7 g/dL (33.0-37.0); MEAN PLATELET VOLUME 9.7 fL (7.2-11.7); MONO # 0.8 K/uL (0.0-0.8); MONO % 9.5 % (0.0-10.0); NRBC % 1.9 % (0.0-2.0); RED CELL DISTRIBUTION WIDTH 18.4 % (11.5-14.5); WHITE BLOOD COUNT 8.3 K/uL (4.8-10.8)
[2016-09-19 05:18] LABS: CHLORIDE 94 mmol/L (98-107); POTASSIUM 3.2 mmol/L (3.6-5.2); SODIUM 136 mmol/L (132-148)
[2016-09-19 05:20] LABS: GFR AFRICAN-AMERICAN > 60
[2016-09-19 05:21] LABS: ALKALINE PHOSPHATASE 167 U/L (38-126); ALT/SGPT 590 U/L (9-52); AST/SGOT 465 U/L (14-36); BILIRUBIN,TOTAL 1.1 mg/dL (0.2-1.3); BLOOD UREA NITROGEN 24 mg/dL (7-17); CARBON DIOXIDE 26 mmol/L (22-30); GLUCOSE,RANDOM 99 mg/dL (65-105); PHOSPHOROUS 2.6 mg/dL (2.5-4.5); TOTAL PROTEIN 6.1 g/dL (6.3-8.3)
[2016-09-19 05:22] LABS: CALCIUM 7.4 mg/dl (8.6-10.4); MAGNESIUM 1.7 mg/dL (1.6-2.3)
[2016-09-19 05:33] LABS: ALB/GLOB RATIO 0.8 (1.0-2.1)
[2016-09-19 10:20] LABS: DRAW SITE L/B
[2016-09-19] MEDS ORDERED: Potassium Chloride 20 mEq ER Tab PO ONE (10:30)
[2016-09-19] MEDS: Enoxaparin 30 mg Syringe SC SCH (10:51)
--- NOTE | 2016-09-19 11:10 | CP.PCM.PN ---
Subjective - Date & Time of Evaluation Date of Evaluation: 09/19/16 Time of Evaluation: 11:09 - Subjective Subjective: PGY2 progress note for Dr. Loza Pt is seen and examined at bedside. No acute events overnight. Patient is lethargic this morning but arousable and answering questions. Patient states that she "hurts all over". Patient denies having any CP, N/V/D/C. 12 point ROS are negative except for the above mentioned. Objective - Vital Signs/Intake and Output Vital Signs (last 24 hours): Temp Pulse Resp BP Pulse Ox 97.4 F L 64 22 130/73 99 09/19/16 08:00 09/19/16 08:00 09/19/16 08:00 09/19/16 10:51 09/19/16 08:00 Intake and Output: 09/19/16 09/19/16 06:59 18:59 Intake Total 130 140 Output Total 210 Balance -80 140 - Medications Medications: Current Medications Acetaminophen (Tylenol 325mg Tab) 650 mg PO Q6H PRN PRN Reason: Headache Albuterol/Ipratropium (Duoneb 3 Mg/0.5 Mg (3 Ml) Ud) 3 ml INH RQ6 [facility] Last Admin: 09/19/16 08:10 Dose: 3 ml Amiodarone HCl (Cordarone) 200 mg PO DAILY [facility] Last Admin: 09/16/16 11:24 Dose: 200 mg Aspirin (Aspirin) 325 mg PO DAILY [facility] Last Admin: 09/19/16 10:52 Dose: 325 mg Benzonatate (Tessalon Perles) 100 mg PO TID PRN PRN Reason: cough Last Admin: 09/18/16 09:17 Dose: 100 mg Bisacodyl (Dulcolax) 5 mg PO DAILY PRN PRN Reason: constipation Last Admin: 09/15/16 18:19 Dose: 5 mg Carvedilol (Coreg) 6.25 mg PO BID [facility] Last Admin: 09/15/16 18:19 Dose: 6.25 mg Clopidogrel Bisulfate (Plavix) 75 mg PO DAILY [facility] Last Admin: 09/19/16 10:52 Dose: 75 mg Dronabinol (Marinol) 2.5 mg PO BID [facility] Last Admin: 09/19/16 10:52 Dose: 2.5 mg Enoxaparin Sodium (Lovenox) 30 mg SC Q24H [facility] Last Admin: 09/19/16 10:51 Dose: 30 mg Famotidine (Pepcid) 20 mg PO DAILY [facility] Last Admin: 09/19/16 10:53 Dose: 20 mg Ferrous Sulfate (Feosol) 325 mg PO BID [facility] Last Admin: 09/19/16 10:51 Dose: 325 mg Furosemide (Lasix) 40 mg PO DAILY [facility] Last Admin: 09/19/16 10:51 Dose: 40 mg Piperacillin Sod/Tazobactam Sod (Zosyn 3.375 Gm Iv Premix) 3.375 gm in 50 mls @ 100 mls/hr IVPB Q8H [facility] Last Admin: 09/19/16 10:50 Dose: 100 mls/hr Lorazepam (Ativan) 1 mg PO Q12 [facility] Last Admin: 09/18/16 22:06 Dose: 1 mg Rosuvastatin Calcium (Crestor) 5 mg PO HS [facility] Last Admin: 09/16/16 21:20 Dose: 5 mg - Labs Labs: 09/19/16 04:56 09/19/16 04:56 - Constitutional Appears: Non-toxic, No Acute Distress - Head Exam Head Exam: ATRAUMATIC - ENT Exam ENT Exam: Mucous Membranes Moist - Respiratory Exam Respiratory Exam: Clear to Ausculation Bilateral. absent: Rales, Rhonchi, Wheezes - Cardiovascular Exam Cardiovascular Exam: REGULAR RHYTHM, +S1, +S2. absent: Gallop, Rubs, Murmur - GI/Abdominal Exam GI & Abdominal Exam: Soft, Normal Bowel Sounds. absent: Firm, Guarding, Rigid, Tenderness, Organomegaly - Extremities Exam Extremities Exam: absent: Pedal Edema, Tenderness - Neurological Exam Neurological Exam: Alert, Oriented x3 - Psychiatric Exam Psychiatric exam: Normal Affect, Normal Mood - Skin Skin Exam: Dry, Intact, Normal Color, Warm Assessment and Plan - Assessment and Plan (Free Text) Assessment: 1) Shortness of breath likely 2/2 CHF excerbation - Systolic dysfunction. BNP 8000 on admission (elevated from previous admission BNP 5610) - s/p ICD placement by Dr. Gustafson 08/16 - Dr Cunningham and Dr Gustafson consulted on previous admission - ECHO (08/02/16)- Read as: 35% EF, suboptimal study. Moderate MR, moderate pulmonary HTN. - NM Muga scan/ for assessment of EF: Calculated EF of 32% - CXR 09/14: Single lead left-sided AICD. Cardiomegaly.Pacer pack obscures evaluation of the left mid lung zone. Patchy left mid to lower lobe opacity may reflect pneumonia/ atelectasis and/or pleural effusion. - ASA 325mg PO daily - Plavix 75mg PO Daily - Lasix 40mg IV BID - Amiodarone 200mg PO daily 2) Elevated troponin - Denies chest pain, hemodynamically stable. History of CAD. Troponins trending downwards: 1.822 (on 09/12/16) -->1.440--> 1.12--> 0.425 (on 09/15/16) - Dr. Cunningham (automotive teacher) was consulted on previous visit for elevated troponins on 09/12/16. Dr Cunningham discussed with patient doing a cardiac catheterization; however, the patient refused and wished only medical therapy. s/p PCI in LAD on 08/[address] Cunningham -Cardiac cath done on 08/11/[address] Cunningham showd EF of 35% with mild LAD stenosis - Patient was discharged on Plavix and aspirin last visit. According to daughter, patient has been non-complaint with medications at home. - 09/14 EKG - Sinus rhythm with wide QRS, Left axis deviation, RBBB, inferior infarct age undetermined, anteroseptal infarct age undetermined - Will continue medical management with Plavix 75mg PO daily, ASS 325mg PO daily , and therapeutic Lovenox 35mg SC q12h 3) COPD - Overnight, patient used BiPAP. ABG done this morning showed lactic acid of 3.4 down trending from 09/16 at 8.7 - Repeat CXR from 09/17/16 showed patchy opacity in the left mid lower lung field that may represent some combination of atelectasis/infiltrate and effusion. Right lung relatively clear. - Duonebs 3ml INH q6h BLAKE - Continue on BIPAP and nasal cannula - Evaluate for need for home O2 - Continue Zosyn 4) HTN Currently normotensive - Lasix 40mg PO BID - Amiodarone 200mg PO daily 5) Anxiety - History of anxiety - Ativan 1 mg PO Q12H PRN 6) Rheumatoid Arthritis - Pt family reports Percocet use for pain at home - Morphine 1mg Q6H PRN for pain 7) DM - Sugars well controlled with diet - HgA1C 5.7 8) Prophylaxis - Pepcid 20mg PO daily - SCDs - ASA and Plavix - Therapeutic lovenox - PT/OT eval for deconditioning - [employer] eval for decreased appetite - Pending discharge to long term once medically stable - Palliative care nurse consulted to discuss code status. Patient is Full code. Management and orders as per Dr. Beck.
[2016-09-19] MEDS: Oxycodone/Acetaminophen 5/325 mg Tab PO PRN ×2 (15:01→22:22)
--- NOTE | 2016-09-19 18:56 | PN ---
SUBJECTIVE: The patient in ICU, supportive care. Family very uncooperative *------* discussed. Gisselle Beck MD
[2016-09-20] MEDS: Albuterol-Ipratrop 3 mg / 0.5 (3 ml) UD INH SCH ×4 (01:07→20:09)
[2016-09-20] MEDS: Piperacill/Tazo 3.375gm in Dex 3.375 GM/50 ML BAG IVPB SCH ×4 (03:31→19:27)
[2016-09-20 06:47] LABS: ALB/GLOB RATIO 0.9 (1.0-2.1); ALKALINE PHOSPHATASE 174 U/L (38-126); ALT/SGPT 578 U/L (9-52); AST/SGOT 471 U/L (14-36); BILIRUBIN,TOTAL 1.3 mg/dL (0.2-1.3); BLOOD UREA NITROGEN 20 mg/dL (7-17); CALCIUM 7.9 mg/dl (8.6-10.4); CARBON DIOXIDE 24 mmol/L (22-30); CHLORIDE 94 mmol/L (98-107); GFR AFRICAN-AMERICAN > 60; GLUCOSE,RANDOM 94 mg/dL (65-105); MAGNESIUM 1.9 mg/dL (1.6-2.3); PHOSPHOROUS 2.2 mg/dL (2.5-4.5); POTASSIUM 3.3 mmol/L (3.6-5.2); SODIUM 139 mmol/L (132-148); TOTAL PROTEIN 6.4 g/dL (6.3-8.3)
[2016-09-20 06:55] LABS: BASO # 0.1 K/uL (0.0-0.2); EOS # 0.2 K/uL (0.0-0.7); EOS % 2.6 % (0.0-4.0); HEMATOCRIT 26.6 % (34.0-47.0); LYMPH # 1.1 K/uL (1.0-4.3); LYMPH % 12.4 % (20.0-40.0); MEAN CELL VOLUME 72.5 fL (81.0-99.0); MEAN CORPUSCULAR HEMOGLOBIN 23.5 pg (27.0-31.0); MEAN CORPUSCULAR HGB CONC 32.4 g/dL (33.0-37.0); MEAN PLATELET VOLUME 9.4 fL (7.2-11.7); MONO # 1.3 K/uL (0.0-0.8); MONO % 14.3 % (0.0-10.0); NRBC % 2.5 % (0.0-2.0); RED CELL DISTRIBUTION WIDTH 18.6 % (11.5-14.5); WHITE BLOOD COUNT 9.1 K/uL (4.8-10.8)
[2016-09-20] MEDS: Enoxaparin 30 mg Syringe SC SCH (11:27)
[2016-09-20] MEDS ORDERED: Potassium Chloride 20 mEq ER Tab PO STA (12:41)
[2016-09-20] MEDS ORDERED: Potassium Chloride 20 mEq ER Tab PO ONE (14:30)
--- NOTE | 2016-09-20 15:39 | CP.PCM.PN ---
Subjective - Date & Time of Evaluation Date of Evaluation: 09/20/16 Time of Evaluation: 08:50 - Subjective Subjective: PGY3 Medicine Note - Dr. Beck's Service: Patient seen and examined at bedside this AM. Patient reports pain everywhere. She says she is having trouble breathing. She also reports no BM in 3 days. Patient denies fever, chills, chest pain. Objective - Vital Signs/Intake and Output Vital Signs (last 24 hours): Temp Pulse Resp BP Pulse Ox 97.7 F 92 H 20 124/70 92 L 09/20/16 12:00 09/20/16 13:53 09/20/16 02:01 09/20/16 10:02 09/20/16 10:02 - Medications Medications: Current Medications Acetaminophen (Tylenol 325mg Tab) 650 mg PO Q6H PRN PRN Reason: Headache Albuterol/Ipratropium (Duoneb 3 Mg/0.5 Mg (3 Ml) Ud) 3 ml INH RQ6 [facility] Last Admin: 09/20/16 13:53 Dose: 3 ml Amiodarone HCl (Cordarone) 200 mg PO DAILY [facility] Last Admin: 09/16/16 11:24 Dose: 200 mg Aspirin (Aspirin) 325 mg PO DAILY [facility] Last Admin: 09/20/16 09:49 Dose: 325 mg Azithromycin (Zithromax) 500 mg PO DAILY [facility] Benzonatate (Tessalon Perles) 100 mg PO TID PRN PRN Reason: cough Last Admin: 09/18/16 09:17 Dose: 100 mg Bisacodyl (Dulcolax) 5 mg PO DAILY PRN PRN Reason: constipation Last Admin: 09/15/16 18:19 Dose: 5 mg Carvedilol (Coreg) 6.25 mg PO BID [facility] Last Admin: 09/15/16 18:19 Dose: 6.25 mg Clopidogrel Bisulfate (Plavix) 75 mg PO DAILY [facility] Last Admin: 09/20/16 09:49 Dose: 75 mg Dronabinol (Marinol) 2.5 mg PO BID [facility] Last Admin: 09/20/16 09:49 Dose: 2.5 mg Enoxaparin Sodium (Lovenox) 30 mg SC Q24H [facility] Last Admin: 09/20/16 11:27 Dose: 30 mg Famotidine (Pepcid) 20 mg PO DAILY [facility] Last Admin: 09/20/16 09:49 Dose: 20 mg Ferrous Sulfate (Feosol) 325 mg PO BID [facility] Last Admin: 09/20/16 09:49 Dose: 325 mg Furosemide (Lasix) 40 mg PO DAILY [facility] Last Admin: 09/20/16 09:49 Dose: 40 mg Piperacillin Sod/Tazobactam Sod (Zosyn 3.375 Gm Iv Premix) 3.375 gm in 50 mls @ 100 mls/hr IVPB Q8H [facility] Last Admin: 09/20/16 15:04 Dose: Not Given Lorazepam (Ativan) 1 mg PO Q12 [facility] Last Admin: 09/20/16 09:49 Dose: 1 mg Oxycodone/Acetaminophen (Percocet 5/325 Mg Tab) 1 tab PO Q6H PRN PRN Reason: Pain, moderate (4-7) Stop: 09/22/16 14:52 Last Admin: 09/19/16 22:22 Dose: 1 tab Rosuvastatin Calcium (Crestor) 5 mg PO HS [facility] Last Admin: 09/16/16 21:20 Dose: 5 mg - Labs Labs: 09/20/16 06:26 09/20/16 06:26 - Constitutional Appears: Chronically Ill - Head Exam Head Exam: NORMAL INSPECTION - Eye Exam Eye Exam: EOMI - ENT Exam ENT Exam: Mucous Membranes Moist - Respiratory Exam Respiratory Exam: Accessory Muscle Use, Respiratory Distress. absent: Rales, Rhonchi, Wheezes - Cardiovascular Exam Cardiovascular Exam: REGULAR RHYTHM, +S1, +S2. absent: Gallop, Rubs - GI/Abdominal Exam GI & Abdominal Exam: Distended, Soft, Tenderness, Normal Bowel Sounds - Extremities Exam Extremities Exam: absent: Pedal Edema - Neurological Exam Neurological Exam: Alert, Awake - Psychiatric Exam Psychiatric exam: Depressed - Skin Skin Exam: Normal Color, Warm Assessment and Plan - Assessment and Plan (Free Text) Assessment: 1) Shortness of breath likely 2/2 CHF excerbation - Systolic dysfunction. BNP 8000 on admission (elevated from previous admission BNP 5610) - s/p ICD placement by Dr. Gustafson 08/16 - Dr Cunningham and Dr Gustafson consulted on previous admission - ECHO (08/02/16)- Read as: 35% EF, suboptimal study. Moderate MR, moderate pulmonary HTN. - NM Muga scan/ for assessment of EF: Calculated EF of 32% - CXR 09/14: Single lead left-sided AICD. Cardiomegaly.Pacer pack obscures evaluation of the left mid lung zone. Patchy left mid to lower lobe opacity may reflect pneumonia/ atelectasis and/or pleural effusion. - ASA 325mg PO daily - Plavix 75mg PO Daily - Lasix 40mg IV BID - Amiodarone 200mg PO daily 2) Elevated troponin - Denies chest pain, hemodynamically stable. History of CAD. Troponins trending downwards: 1.822 (on 09/12/16) -->1.440--> 1.12--> 0.425 (on 09/15/16) - Dr. Cunningham (casino shift manager) was consulted on previous visit for elevated troponins on 09/12/16. Dr Cunningham discussed with patient doing a cardiac catheterization; however, the patient refused and wished only medical therapy. s/p PCI in LAD on 08/[address] Cunningham -Cardiac cath done on 08/11/[address] Cunningham showd EF of 35% with mild LAD stenosis - Patient was discharged on Plavix and aspirin last visit. According to daughter, patient has been non-complaint with medications at home. - 09/14 EKG - Sinus rhythm with wide QRS, Left axis deviation, RBBB, inferior infarct age undetermined, anteroseptal infarct age undetermined - Will continue medical management with Plavix 75mg PO daily, ASA 325mg PO daily , and therapeutic Lovenox 35mg SC q12h 3) COPD - Overnight, patient used BiPAP. ABG done this morning showed lactic acid of 3.4 down trending from 09/16 at 8.7 - Repeat CXR from 09/17/16 showed patchy opacity in the left mid lower lung field that may represent some combination of atelectasis/infiltrate and effusion. Right lung relatively clear. - Duonebs 3ml INH q6h [facility] - Continue on BIPAP and nasal cannula - Evaluate for need for home O2 - Continue Zosyn IVPB --> Awaiting PICC line placement tomorrow. Zithromax 500mg PO daily for now. 4) HTN Currently normotensive - Lasix 40mg PO BID - Amiodarone 200mg PO daily 5) Anxiety - History of anxiety - Ativan 1 mg PO Q12H PRN 6) Rheumatoid Arthritis - Pt family reports Percocet use for pain at home - Morphine 1mg Q6H PRN for pain 7) DM - Sugars well controlled with diet - HgA1C 5.7 8) Prophylaxis - Pepcid 20mg PO daily - SCDs - ASA and Plavix - Therapeutic lovenox - PT/OT eval for deconditioning - Certified Personal Trainer eval for decreased appetite - Pending discharge to long term once medically stable - Palliative care nurse consulted to discuss code status. Patient is Full code. Management and orders as per Dr. Beck.
[2016-09-21] MEDS: Albuterol-Ipratrop 3 mg / 0.5 (3 ml) UD INH SCH ×4 (02:30→20:30)
[2016-09-21] MEDS: Piperacill/Tazo 3.375gm in Dex 3.375 GM/50 ML BAG IVPB SCH ×3 (03:00→18:58)
--- NOTE | 2016-09-21 10:30 | CP.PCM.PN ---
Subjective - Date & Time of Evaluation Date of Evaluation: 09/21/16 Time of Evaluation: 10:25 - Subjective Subjective: PGY2 progress note for Dr. Beck Pt is seen and examined at bedside. No acute events overnight. patient is lethargic this morning but responding to questions. Patient c/o abd pain. She denies having any CP, N/V/D/C. 12 point ROS are negative except for the above mentioned. Objective - Vital Signs/Intake and Output Vital Signs (last 24 hours): Temp Pulse Resp BP Pulse Ox 97.8 F 76 18 112/65 96 09/21/16 04:00 09/21/16 00:00 09/21/16 00:00 09/21/16 00:00 09/21/16 00:00 - Medications Medications: Current Medications Acetaminophen (Tylenol 325mg Tab) 650 mg PO Q6H PRN PRN Reason: Headache Albuterol/Ipratropium (Duoneb 3 Mg/0.5 Mg (3 Ml) Ud) 3 ml INH RQ6 [facility] Last Admin: 09/21/16 02:30 Dose: 3 ml Amiodarone HCl (Cordarone) 200 mg PO DAILY [facility] Last Admin: 09/16/16 11:24 Dose: 200 mg Aspirin (Aspirin) 325 mg PO DAILY [facility] Last Admin: 09/20/16 09:49 Dose: 325 mg Azithromycin (Zithromax) 500 mg PO DAILY [facility] Last Admin: 09/20/16 17:43 Dose: 500 mg Benzonatate (Tessalon Perles) 100 mg PO TID PRN PRN Reason: cough Last Admin: 09/18/16 09:17 Dose: 100 mg Bisacodyl (Dulcolax) 5 mg PO DAILY [facility] Carvedilol (Coreg) 6.25 mg PO BID [facility] Last Admin: 09/15/16 18:19 Dose: 6.25 mg Clopidogrel Bisulfate (Plavix) 75 mg PO DAILY [facility] Last Admin: 09/20/16 09:49 Dose: 75 mg Dronabinol (Marinol) 2.5 mg PO BID [facility] Last Admin: 09/20/16 17:43 Dose: 2.5 mg Enoxaparin Sodium (Lovenox) 30 mg SC Q24H [facility] Last Admin: 09/20/16 11:27 Dose: 30 mg Famotidine (Pepcid) 20 mg PO DAILY [facility] Last Admin: 09/20/16 09:49 Dose: 20 mg Ferrous Sulfate (Feosol) 325 mg PO BID [facility] Last Admin: 09/20/16 17:43 Dose: 325 mg Furosemide (Lasix) 40 mg PO DAILY [facility] Last Admin: 09/20/16 09:49 Dose: 40 mg Piperacillin Sod/Tazobactam Sod (Zosyn 3.375 Gm Iv Premix) 3.375 gm in 50 mls @ 100 mls/hr IVPB Q8H [facility] Last Admin: 09/21/16 03:00 Dose: Not Given Lorazepam (Ativan) 1 mg PO Q12 [facility] Last Admin: 09/20/16 22:01 Dose: 1 mg Oxycodone/Acetaminophen (Percocet 5/325 Mg Tab) 1 tab PO Q6H PRN PRN Reason: Pain, moderate (4-7) Stop: 09/22/16 14:52 Last Admin: 09/19/16 22:22 Dose: 1 tab Rosuvastatin Calcium (Crestor) 5 mg PO HS [facility] Last Admin: 09/16/16 21:20 Dose: 5 mg - Labs Labs: 09/20/16 06:26 09/20/16 06:26 - Constitutional Appears: No Acute Distress - Head Exam Head Exam: ATRAUMATIC - ENT Exam ENT Exam: Mucous Membranes Moist - Respiratory Exam Respiratory Exam: Clear to Ausculation Bilateral. absent: Rales, Rhonchi, Wheezes - Cardiovascular Exam Cardiovascular Exam: REGULAR RHYTHM, +S1, +S2. absent: Gallop, Rubs, Murmur - GI/Abdominal Exam GI & Abdominal Exam: Soft, Tenderness, Normal Bowel Sounds. absent: Firm, Rigid - Extremities Exam Extremities Exam: absent: Pedal Edema, Tenderness - Neurological Exam Neurological Exam: Awake - Skin Skin Exam: Dry, Intact, Normal Color, Warm Assessment and Plan - Assessment and Plan (Free Text) Assessment: 1) Shortness of breath likely 2/2 CHF excerbation - Currently on nonrebreather. - Systolic dysfunction. BNP 8000 on admission (elevated from previous admission BNP 5610) - s/p ICD placement by Dr. Gustafson 08/16 - Dr Cunningham and Dr Gustafson consulted on previous admission - ECHO (08/02/16)- Read as: 35% EF, suboptimal study. Moderate MR, moderate pulmonary HTN. - NM Muga scan/ for assessment of EF: Calculated EF of 32% - CXR 09/14: Single lead left-sided AICD. Cardiomegaly.Pacer pack obscures evaluation of the left mid lung zone. Patchy left mid to lower lobe opacity may reflect pneumonia/ atelectasis and/or pleural effusion. - ASA 325mg PO daily - Plavix 75mg PO Daily - Lasix 40mg IV BID - Amiodarone 200mg PO daily 2) Elevated troponin - Denies chest pain, hemodynamically stable. History of CAD. Troponins trending downwards: 1.822 (on 09/12/16) -->1.440--> 1.12--> 0.425 (on 09/15/16) - Dr. Cunningham (padding gluer) was consulted on previous visit for elevated troponins on 09/12/16. Dr Cunningham discussed with patient doing a cardiac catheterization; however, the patient refused and wished only medical therapy. s/p PCI in LAD on 08/[address] Cunningham -Cardiac cath done on 08/11/[address] Cunningham showd EF of 35% with mild LAD stenosis - Patient was discharged on Plavix and aspirin last visit. According to daughter, patient has been non-complaint with medications at home. - 09/14 EKG - Sinus rhythm with wide QRS, Left axis deviation, RBBB, inferior infarct age undetermined, anteroseptal infarct age undetermined - Will continue medical management with Plavix 75mg PO daily, ASA 325mg PO daily , and therapeutic Lovenox 35mg SC q12h 3) COPD - Repeat CXR from 09/17/16 showed patchy opacity in the left mid lower lung field that may represent some combination of atelectasis/infiltrate and effusion. Right lung relatively clear. - Duonebs 3ml INH q6h [facility] - Continue on BIPAP and nasal cannula - Evaluate for need for home O2 - Continue Zosyn IVPB --> Awaiting PICC line placement tomorrow. Zithromax 500mg PO daily for now. 4) HTN Currently normotensive - Lasix 40mg PO BID - Amiodarone 200mg PO daily 5) Anxiety - History of anxiety - Ativan 1 mg PO Q12H PRN 6) Rheumatoid Arthritis - Pt family reports Percocet use for pain at home - Morphine 1mg Q6H PRN for pain 7) DM - Sugars well controlled with diet - HgA1C 5.7 8) Prophylaxis - Pepcid 20mg PO daily - SCDs - ASA and Plavix - Therapeutic lovenox - PT/OT eval for deconditioning - Reo Asset Manager eval for decreased appetite - Palliative care nurse consulted to discuss code status. - Patient is DNR/DNI with signed documentation from daughterJuju - Had an extensive meeting with family, case management, social work and palliative care nurse about oil heaterman placement today. Management and orders as per Dr. Beck.
[2016-09-21] MEDS: Enoxaparin 30 mg Syringe SC SCH (11:21)
--- NOTE | 2016-09-21 11:54 | PCM.HF ---
Heart Failure Core Measure - Heart Failure Ejection Fraction: Less Than 40 % KANDIS Inhibitor Prescribed: No Contraindication/Reason for not providing: AICD, stent Beta-Wesley Prescribed: Carvedilol AnticoagulationTherapy for Atrial Fibrillation/Atrialflutter: No Contraindication/Reason for not providing: No a fib Hydralazine Nitrate Prescribed: No Contraindication/Reason for not providing: not indicated, hypotensive Implantable Cardioverter Defibrillator Therapy: Yes Cardiac Resynchronization Therapy Prescribed: No Contraindication/Reason for not providing: AICD - Follow up Will be discharged to: Home Follow Up Date (must be within 7 days from discharge): 09/16/16 (This is a late entry note. Patient was discharged from on 09/14/16 ) Follow Up Time: 09:00
--- NOTE | 2016-09-21 12:25 | CP.PCM.PCO ---
Physician Communication Note - Physician Communication Note Physician Communication Note: Family meeting at 1 pm today
--- NOTE | 2016-09-21 14:41 | CARD ---
APPROVED REPORT EKG Measurement Heart [id number] <Conclusion> Ventricular-paced rhythm Abnormal ECG
[2016-09-21] MEDS: Oxycodone/Acetaminophen 5/325 mg Tab PO PRN (15:29)
--- NOTE | 2016-09-21 15:36 | CP.PCM.PN ---
Subjective - Date & Time of Evaluation Date of Evaluation: 09/21/16 Time of Evaluation: 01:00 - Subjective Subjective: patient complains of feeling tired. Objective - Vital Signs/Intake and Output Vital Signs (last 24 hours): Temp Pulse Resp BP Pulse Ox 98.2 F 66 18 105/62 100 09/21/16 12:00 09/21/16 12:00 09/21/16 12:00 09/21/16 11:22 09/21/16 12:00 - Medications Medications: Current Medications Acetaminophen (Tylenol 325mg Tab) 650 mg PO Q6H PRN PRN Reason: Headache Albuterol/Ipratropium (Duoneb 3 Mg/0.5 Mg (3 Ml) Ud) 3 ml INH RQ6 [facility] Last Admin: 09/21/16 13:46 Dose: 3 ml Amiodarone HCl (Cordarone) 200 mg PO DAILY [facility] Last Admin: 09/16/16 11:24 Dose: 200 mg Aspirin (Aspirin) 325 mg PO DAILY [facility] Last Admin: 09/21/16 11:20 Dose: 325 mg Azithromycin (Zithromax) 500 mg PO DAILY [facility] Last Admin: 09/21/16 11:20 Dose: 500 mg Benzonatate (Tessalon Perles) 100 mg PO TID PRN PRN Reason: cough Last Admin: 09/18/16 09:17 Dose: 100 mg Bisacodyl (Dulcolax) 5 mg PO DAILY [facility] Carvedilol (Coreg) 6.25 mg PO BID [facility] Last Admin: 09/15/16 18:19 Dose: 6.25 mg Clopidogrel Bisulfate (Plavix) 75 mg PO DAILY [facility] Last Admin: 09/21/16 11:20 Dose: 75 mg Dronabinol (Marinol) 2.5 mg PO BID [facility] Last Admin: 09/21/16 11:30 Dose: Not Given Enoxaparin Sodium (Lovenox) 30 mg SC Q24H [facility] Last Admin: 09/21/16 11:21 Dose: 30 mg Famotidine (Pepcid) 20 mg PO DAILY [facility] Last Admin: 09/21/16 11:20 Dose: 20 mg Ferrous Sulfate (Feosol) 325 mg PO BID [facility] Last Admin: 09/21/16 11:21 Dose: 325 mg Furosemide (Lasix) 40 mg PO DAILY [facility] Last Admin: 09/21/16 11:22 Dose: 40 mg Piperacillin Sod/Tazobactam Sod (Zosyn 3.375 Gm Iv Premix) 3.375 gm in 50 mls @ 100 mls/hr IVPB Q8H [facility] Last Admin: 09/21/16 13:06 Dose: Not Given Lorazepam (Ativan) 1 mg PO Q12 [facility] Last Admin: 09/21/16 11:22 Dose: Not Given Oxycodone/Acetaminophen (Percocet 5/325 Mg Tab) 1 tab PO Q6H PRN PRN Reason: Pain, moderate (4-7) Stop: 09/22/16 14:52 Last Admin: 09/21/16 15:29 Dose: 1 tab Rosuvastatin Calcium (Crestor) 5 mg PO HS [facility] Last Admin: 09/16/16 21:20 Dose: 5 mg - Labs Labs: 09/20/16 06:26 09/20/16 06:26 - Constitutional Appears: No Acute Distress, Chronically Ill - Head Exam Head Exam: ATRAUMATIC, NORMAL INSPECTION, NORMOCEPHALIC - Eye Exam Eye Exam: EOMI, Normal appearance, PERRL Pupil Exam: NORMAL ACCOMODATION, PERRL - ENT Exam ENT Exam: Mucous Membranes Moist, Normal Exam - Neck Exam Neck Exam: Full ROM, Normal Inspection - Respiratory Exam Respiratory Exam: Decreased Breath Sounds, Rhonchi, NORMAL BREATHING PATTERN - Cardiovascular Exam Cardiovascular Exam: Bradycardia, REGULAR RHYTHM - GI/Abdominal Exam GI & Abdominal Exam: Soft, Normal Bowel Sounds - Rectal Exam Rectal Exam: Deferred - Extremities Exam Extremities Exam: Normal Capillary Refill, Normal Inspection, Pedal Edema - Back Exam Back Exam: NORMAL INSPECTION - Neurological Exam Neurological Exam: Alert, Oriented x3 Neuro motor strength exam: Left Upper Extremity: 2/1, Right Upper Extremity: 2/1 , Left Lower Extremity: 2/1, Right Lower Extremity: 2/1 - Psychiatric Exam Psychiatric exam: Anxious, Depressed - Skin Skin Exam: Dry, Intact, Normal Color, Warm Assessment and Plan - Assessment and Plan (Free Text) Assessment: Palliative care progress note Patient is alert, oriented X 3 in no acute distress. Symptomatic Tx. VS WNL, afebrile. O2sat 100% NC. All systems reviewed and are negative except marked. Family meeting held attended by the medical massage therapist, SS, Case management, patient's two daughters, niece and nephew and my self. The goal of the meeting was to decide on best level of care for this patient that would avoid all readmissions . Patient has been readmitted within last mark > 20 X for the management of symptoms caused by chronic condition. Often , patient found to be no compliant with orders for home O2 what resulted in the readmission on the day of discharge. Patient's chronic condition reviewed with family and its expected projectory. Family's knowledge regarding COPD corrected. Family agreed that patient came to the stage when she needed extensive nursing and medical care. Family not able to provide that kind of care at home. jail care suggested. Doctor Beck 's residential insurance inspector Cary COOPER supported decision. Rosemary ABBASI and Arelis the dependency case manager gave further elaboration on the details of transfer to [place]. I discussed Code status with the family. Last night the DNR document signed by daughter Juju after she spoke to Doctor Beck. I suggested that if patient is to be transferred to [place] the POLST form should be signed as an universal document. family agreed. POLST signed by both daughters. DNR/DNI Impression * Chronically ill patient in no acute distress * ocean transportation intermediary placement discussed as nost appropriate level of care for this patient vs home discharge. Family agreed * POLS signed, DNR/DNI Suggestion * SS to assist family with paper work needed for admission to retirement care * Transfer to floor than to [facility] of choice when bed available * Agree DNR/DNI
[2016-09-21] MEDS: Bisacodyl 5mg EC Tab PO SCH (18:52)
[2016-09-21 23:17] VITALS: RESP 20
[2016-09-22] MEDS: Albuterol-Ipratrop 3 mg / 0.5 (3 ml) UD INH SCH ×3 (01:18→13:39)
[2016-09-22] MEDS: Piperacill/Tazo 3.375gm in Dex 3.375 GM/50 ML BAG IVPB SCH ×2 (02:55→10:41)
[2016-09-22] MEDS: Bisacodyl 5mg EC Tab PO SCH (09:09)
[2016-09-22] MEDS: Enoxaparin 30 mg Syringe SC SCH (10:41)
--- NOTE | 2016-09-22 11:25 | CP.PCM.PN ---
Subjective - Date & Time of Evaluation Date of Evaluation: 09/22/16 Time of Evaluation: 11:21 - Subjective Subjective: Medicine Note- Dr Beck's service Patient seen and examined. Patient states that she feels tired today. She is breathing on BIPAP this morning. Patient complains that she is thirsty and does not have an appetite. Denies chest pain and abdominal pain. Objective - Vital Signs/Intake and Output Vital Signs (last 24 hours): Temp Pulse Resp BP Pulse Ox 97.4 F L 77 20 131/76 100 09/21/16 23:16 09/22/16 07:25 09/21/16 23:16 09/22/16 09:09 09/21/16 23:16 Intake and Output: 09/22/16 09/22/16 06:59 18:59 Intake Total 240 Balance 240 - Medications Medications: Current Medications Acetaminophen (Tylenol 325mg Tab) 650 mg PO Q6H PRN PRN Reason: Headache Albuterol/Ipratropium (Duoneb 3 Mg/0.5 Mg (3 Ml) Ud) 3 ml INH RQ6 COUNTS INCLUDE 234 BEDS AT THE [facility] Last Admin: 09/22/16 07:25 Dose: 3 ml Amiodarone HCl (Cordarone) 200 mg PO DAILY COUNTS INCLUDE 234 BEDS AT THE [facility] Last Admin: 09/16/16 11:24 Dose: 200 mg Aspirin (Aspirin) 325 mg PO DAILY COUNTS INCLUDE 234 BEDS AT THE [facility] Last Admin: 09/22/16 09:09 Dose: 325 mg Azithromycin (Zithromax) 500 mg PO DAILY COUNTS INCLUDE 234 BEDS AT THE [facility] Last Admin: 09/22/16 09:12 Dose: 500 mg Benzonatate (Tessalon Perles) 100 mg PO TID PRN PRN Reason: cough Last Admin: 09/18/16 09:17 Dose: 100 mg Bisacodyl (Dulcolax) 5 mg PO DAILY COUNTS INCLUDE 234 BEDS AT THE [facility] Last Admin: 09/22/16 09:09 Dose: 5 mg Carvedilol (Coreg) 6.25 mg PO BID COUNTS INCLUDE 234 BEDS AT THE [facility] Last Admin: 09/15/16 18:19 Dose: 6.25 mg Clopidogrel Bisulfate (Plavix) 75 mg PO DAILY COUNTS INCLUDE 234 BEDS AT THE [facility] Last Admin: 09/22/16 09:09 Dose: 75 mg Dronabinol (Marinol) 2.5 mg PO BID COUNTS INCLUDE 234 BEDS AT THE [facility] Last Admin: 09/22/16 09:10 Dose: 2.5 mg Enoxaparin Sodium (Lovenox) 30 mg SC Q24H COUNTS INCLUDE 234 BEDS AT THE [facility] Last Admin: 09/22/16 10:41 Dose: 30 mg Famotidine (Pepcid) 20 mg PO DAILY COUNTS INCLUDE 234 BEDS AT THE [facility] Last Admin: 09/22/16 09:09 Dose: 20 mg Ferrous Sulfate (Feosol) 325 mg PO BID COUNTS INCLUDE 234 BEDS AT THE [facility] Last Admin: 09/22/16 09:09 Dose: 325 mg Furosemide (Lasix) 40 mg PO DAILY COUNTS INCLUDE 234 BEDS AT THE [facility] Last Admin: 09/22/16 09:09 Dose: 40 mg Piperacillin Sod/Tazobactam Sod (Zosyn 3.375 Gm Iv Premix) 3.375 gm in 50 mls @ 100 mls/hr IVPB Q8H COUNTS INCLUDE 234 BEDS AT THE [facility] Last Admin: 09/22/16 10:41 Dose: 100 mls/hr Lorazepam (Ativan) 1 mg PO Q12 COUNTS INCLUDE 234 BEDS AT THE [facility] Last Admin: 09/22/16 09:09 Dose: 1 mg Oxycodone/Acetaminophen (Percocet 5/325 Mg Tab) 1 tab PO Q6H PRN PRN Reason: Pain, moderate (4-7) Stop: 09/22/16 14:52 Last Admin: 09/21/16 15:29 Dose: 1 tab Rosuvastatin Calcium (Crestor) 5 mg PO HS COUNTS INCLUDE 234 BEDS AT THE [facility] Last Admin: 09/16/16 21:20 Dose: 5 mg - Labs Labs: 09/20/16 06:26 09/20/16 06:26 - Constitutional Appears: No Acute Distress, Cachectic, Chronically Ill - Head Exam Head Exam: ATRAUMATIC, NORMOCEPHALIC - Eye Exam Eye Exam: EOMI, Normal appearance Pupil Exam: NORMAL ACCOMODATION - ENT Exam ENT Exam: Mucous Membranes Dry - Neck Exam Neck Exam: Normal Inspection - Respiratory Exam Respiratory Exam: Decreased Breath Sounds, NORMAL BREATHING PATTERN. absent: Rhonchi, Wheezes - Cardiovascular Exam Cardiovascular Exam: Bradycardia, Irregular Rhythm, +S1, +S2. absent: Murmur - GI/Abdominal Exam GI & Abdominal Exam: Soft, Normal Bowel Sounds - Extremities Exam Extremities Exam: Normal Inspection. absent: Pedal Edema - Neurological Exam Neurological Exam: Alert, Awake, Oriented x3 - Psychiatric Exam Psychiatric exam: Normal Affect, Normal Mood - Skin Skin Exam: Dry, Intact, Normal Color, Warm Assessment and Plan - Assessment and Plan (Free Text) Assessment: 1) Shortness of breath likely 2/2 CHF excerbation - Currently on BIPAP and nasal canula - Systolic dysfunction. BNP 8000 on admission (elevated from previous admission BNP 5610) - s/p ICD placement by Dr. Gustafson 08/16 - Dr Cunningham and Dr Gustafson consulted on previous admission - ECHO (08/02/16)- Read as: 35% EF, suboptimal study. Moderate MR, moderate pulmonary HTN. - NM Muga scan/ for assessment of EF: Calculated EF of 32% - CXR 09/14: Single lead left-sided AICD. Cardiomegaly.Pacer pack obscures evaluation of the left mid lung zone. Patchy left mid to lower lobe opacity may reflect pneumonia/ atelectasis and/or pleural effusion. Continue current medical management: - ASA 325mg PO daily - Plavix 75mg PO Daily - Lasix 40mg PO daily - Amiodarone 200mg PO daily (held due to hypotension) 2) Elevated troponin - Denies chest pain, hemodynamically stable. History of CAD. Troponins trended downwards: 1.822 (on 09/12/16) -->1.440--> 1.12--> 0.425 (on 09/15/16) - Dr. Cunningham (darkroom worker) was consulted on previous visit for elevated troponins on 09/12/16. Dr Cunningham discussed with patient doing a cardiac catheterization; however, the patient refused and wished only medical therapy. s/p PCI in LAD on 08/[address] Cunningham -Cardiac cath done on 08/11/[address] Cunningham showd EF of 35% with mild LAD stenosis - Patient was discharged on Plavix and aspirin last visit. According to daughter, patient has been non-complaint with medications at home. - 09/14 EKG - Sinus rhythm with wide QRS, Left axis deviation, RBBB, inferior infarct age undetermined, anteroseptal infarct age undetermined - Will continue medical management with Plavix 75mg PO daily, ASA 325mg PO daily , and therapeutic Lovenox 35mg SC q12h 3) COPD - Repeat CXR from 09/17/16 showed patchy opacity in the left mid lower lung field that may represent some combination of atelectasis/infiltrate and effusion. Right lung relatively clear. - Duonebs 3ml INH q6h BLAKE - Continue on BIPAP and nasal cannula - Patient should be on home O2 - Midline catheter inserted yday. Zosyn 3.375gm IV q8h 4) HTN Currently normotensive - Lasix 40mg PO daily - Amiodarone 200mg PO daily (held due to hypotension) 5) Anxiety - History of anxiety - Ativan 1 mg PO Q12H PRN 6) Rheumatoid Arthritis - Pt family reports Percocet use for pain at home - Morphine 1mg Q6H PRN for pain 7) DM - Sugars well controlled with diet - HgA1C 5.7 8) Prophylaxis - Pepcid 20mg PO daily - SCDs - ASA and Plavix - Therapeutic lovenox - PT/OT eval for deconditioning - [employer] eval for decreased appetite - Palliative care nurse consulted to discuss code status. - Patient is DNR/DNI with signed documentation from daughter, [facility] and orders as per Dr. Beck.
[2016-09-22 16:33] VITALS: BP 103/66; PULSE 66; TEMP 98.1; O2SAT 99
--- NOTE | 2016-10-30 15:54 | DS ---
The patient was admitted to the hospital with complaints of weakness, fatigue, and tiredness, not responding to therapy. The patient gets supportive care. The patient is transferred to LT[facility] for further management. He had congestive heart failure, dementia ____ . Gisselle Beck MD
--- NOTE | 2016-11-01 08:12 | HP ---
HISTORY OF PRESENT ILLNESS: The patient is seen in the hospital. The patient denies shortness of breath, weakness. The patient came to ER with pulmonary edema prior to admission to the hospital. PHYSICAL EXAMINATION GENERAL: The patient is awake, alert and oriented. VITAL SIGNS: Temperature 98 and pulse 90. HEENT: Normal. CHEST: Exam is clear. HEART: Regular. ABDOMEN: Soft. EXTREMITIES: No edema. IMPRESSION: The patient suffers from congestive heart failure, pulmonary edema. The patient needs rest and supportive care. Gisselle Beck MD
== END 2016-09-22 05:15 | DRG 871 ==
LOC: C.ER 17:57 → C.9E 19:18 → C.3T 21:46 → C.9I 09-16 04:40 → C.3T 09-21 22:39
PROVIDERS: ADMIT Internal Medicine Pulmonary Disease; ATTEND Internal Medicine Pulmonary Disease
PROC: 5A09457 Assistance with Respiratory Ventilation, 24-96 Consecutive Hours, Continuous Positive Airway Pressure (ICD-10-PCS; principal; 2016-09-14)
PROC: 5A09457 Assistance with Respiratory Ventilation, 24-96 Consecutive Hours, Continuous Positive Airway Pressure (ICD-10-PCS; 2016-09-20)
DX: A41.9 Sepsis, unspecified organism (principal); J18.9 Pneumonia, unspecified organism; J96.00 Acute respiratory failure, unspecified whether with hypoxia or hypercapnia; I50.23 Acute on chronic systolic (congestive) heart failure; J44.0 Chronic obstructive pulmonary disease with (acute) lower respiratory infection; I11.0 Hypertensive heart disease with heart failure; E87.2 Acidosis; F03.90 Unspecified dementia, unspecified severity, without behavioral disturbance, psychotic disturbance, mood disturbance, and anxiety; J44.1 Chronic obstructive pulmonary disease with (acute) exacerbation; I48.91 Unspecified atrial fibrillation; I27.2 Other secondary pulmonary hypertension; E11.9 Type 2 diabetes mellitus without complications; E78.00 Pure hypercholesterolemia, unspecified; I25.10 Atherosclerotic heart disease of native coronary artery without angina pectoris; I45.10 Unspecified right bundle-branch block; M06.9 Rheumatoid arthritis, unspecified; M81.0 Age-related osteoporosis without current pathological fracture; F41.9 Anxiety disorder, unspecified; Z66 Do not resuscitate; Z53.29 Procedure and treatment not carried out because of patient's decision for other reasons; Z51.5 Encounter for palliative care; Z79.02 Long term (current) use of antithrombotics/antiplatelets; Z90.49 Acquired absence of other specified parts of digestive tract; Z95.5 Presence of coronary angioplasty implant and graft; Z95.810 Presence of automatic (implantable) cardiac defibrillator; R74.8 Abnormal levels of other serum enzymes